=== PATIENT | female | born 1955 | race Caucasian/White ===

== ENCOUNTER 2022-09-11 11:08 | Outpatient (OUT) | payer MEDICARE, OTHER, SELFPAY ==
--- NOTE | 2022-09-11 11:19 | XR_ITS ---
[address] [address] Patient Name: RAFI ASH MRN: [id number] date: 1955 Sex: F Assigned Patient Location: [facility] Current Patient Location: [facility] Accession/Order Number: [id number] Exam Date: 09/11/2022 11:28 Report Date: 09/11/2022 21:36 At the request of: DWAYNE BALDERAS Procedure: XR foot LT min 3V PROCEDURE: XR foot LT min 3V COMPARISON: None. HISTORY: Left foot injury S99.922A FINDINGS: BONES:No acute fracture or dislocation. Remote resection head of the fifth metatarsal. Moderate plantar enthesopathic spurring of the calcaneus. SOFT TISSUES:Negative. No visible soft tissue swelling. EFFUSION:None visible. OTHER: Negative. IMPRESSION: No acute fracture Electronically authenticated by: THALIA CARSON Date: 09/11/2022 21:36
== END 2022-09-11 11:09 | disposition home or self-care (01) ==
PROVIDERS: PCP Family Medicine; Visit Provider Family Medicine
DX: S99.922A Unspecified injury of left foot, initial encounter (principal)
CPT/HCPCS: 73630

== ENCOUNTER 2023-02-12 23:10 | Emergency (ER) | payer MEDICARE, OTHER, SELFPAY ==
[2023-02-12] VITALS (9 sets, daily range): BP systolic 178–214; BP diastolic 93–105; PULSE 77–85; RESP 17–26; TEMP 36.7; O2SAT 98–100; BMI 23.5
--- NOTE | 2023-02-12 21:45 | ECG_ITS ---
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
--- NOTE | 2023-02-12 23:32 | ED.GENADUL1 ---
HPI - General Adult General Chief complaint: Recheck/Abnormal Lab/Rx Stated complaint: HIGH BLOOD PRESSURE Time Seen by Provider: 02/12/23 23:26 Source: patient Mode of arrival: walk-in History of Present Illness HPI narrative: This 68-year-old female with a history of hypertension, diabetes and coronary artery disease who is status post triple bypass surgery 2 years ago at [facility] presents for evaluation of elevated blood pressure, chest tightness and generalized malaise. The patient started Ozempic last week for control of her DM. She also has recently been seen by her team assembly line machine operator at [facility], Dr Alex, who increased her dose of Losartan to 50mg BID. States she has been having trouble getting control of her blood pressure. Her sugars have been running in the 160s to 170s. She states that last week after taking the injection she did not feel like eating all week and had some nausea. She denies any abdominal pain. She also had a COVID19 booster shot today. She states her blood pressure was elevated at home and she has some chest pressure. There is no radiation of this pain. She denies any dizziness diaphoresis or syncope. She has no headache. She has no abdominal pain or back pain. She has no lower extremity pain or swelling. She takes aspirin but is not on any additional blood thinners. Related Data Home Medications Medication Instructions Recorded Confirmed aspirin 81 mg tablet,delayed 81 mg PO DAILY 02/12/23 02/12/23 release (Adult Aspirin Regimen) atorvastatin 80 mg tablet 80 mg PO DAILY 02/12/23 02/12/23 docusate sodium 100 mg capsule 100 mg PO BID 02/12/23 02/12/23 gabapentin 100 mg capsule 100 mg PO Q8H 02/12/23 02/12/23 gabapentin 300 mg capsule 300 mg PO DAILY 02/12/23 02/12/23 insulin aspart U-100 100 unit/mL subcut 02/12/23 (3 mL) subcutaneous pen (Novolog FlexPen U-100 Insulin aspart) insulin detemir U-100 100 unit/mL 15 unit subcut .morning 02/12/23 02/12/23 (3 mL) subcutaneous pen (Levemir FlexPen) insulin detemir U-100 100 unit/mL 17 unit subcut QPM 02/12/23 02/12/23 (3 mL) subcutaneous pen (Levemir FlexPen) losartan 50 mg tablet 50 mg PO BID 02/12/23 02/12/23 magnesium oxide 400 mg (241.3 mg 400 mg PO DAILY 02/12/23 02/12/23 magnesium) tablet metformin 500 mg tablet,extended 500 mg PO DAILY 02/12/23 02/12/23 release 24 hr semaglutide 0.25 mg or 0.5 mg (2 0.25 mg subcut .weekly 02/12/23 02/12/23 mg/3 mL) subcutaneous pen injector (Ozempic) Allergies Allergy/AdvReac Type Severity Reaction Status Date / Time latex Allergy Mild Redness of Verified 02/12/23 23:23 Skin Review of Systems ROS Status of ROS 10 or more systems reviewed and unremarkable except as noted in history and below [facility] Social History Smoking status: Never smoker Exam Narrative Exam Narrative: Nurses note and vital signs reviewed and patient is not hypoxic. Manual blood pressure at triage was 170/100 General: Well-appearing female looking younger than her stated age of 68, no respiratory distress Skin: Warm, dry, no pallor noted. There is no rash noted. Head: Normocephalic, atraumatic Eye: Normal conjunctiva, no drainage, EOMI. PERRL Ears, Nose, Mouth, and Throat: oral mucosa is moist. Nares patent. Mouth without vesicles. Ear canals patent. Tm's without Erythema Cardiovascular: Regular Rate and Rhythm S1S2, No murmurs rubs or gallops appreciated, pulses are brisk and equal bilaterally Respiratory: Patient is in no distress, no accessory muscle use, lungs are clear to auscultation, no wheezing, rales or rhonchi Back: non-tender, no CVA tenderness bilaterally to percussion. GI: Normal bowel sounds, no tenderness to palpation, no masses appreciated. No rebound, guarding, or rigidity noted. Musculoskeletal: The patient has no evidence of calf tenderness, no pitting edema, symmetrical pulses noted bilaterally Neurological: A&O x4, normal speech Psychiatric: Cooperative Constitutional Vital Signs, click to edit/add: Last Vital Signs Temp 98.1 F 02/12/23 23:16 Pulse 71 02/13/23 00:30 Resp 16 02/13/23 00:30 BP 155/94 H 02/13/23 00:30 Pulse Ox 98 02/13/23 00:30 O2 Del Method Room Air 02/12/23 23:16 Course Vital Signs Vital signs: Vital Signs Temperature 98.1 F 02/12/23 23:16 Pulse Rate 80 02/12/23 23:16 Respiratory Rate 18 02/12/23 23:16 Blood Pressure 178/100 H 02/12/23 23:16 Pulse Oximetry 98 02/12/23 23:16 Oxygen Delivery Method Room Air 02/12/23 23:16 Temperature 98.1 F 02/12/23 23:16 Pulse Rate 71 02/13/23 00:30 Respiratory Rate 16 02/13/23 00:30 Blood Pressure 155/94 H 02/13/23 00:30 Pulse Oximetry 98 02/13/23 00:30 Oxygen Delivery Method Room Air 02/12/23 23:16 Medical Decision Making MDM Narrative Medical decision making narrative: This 68-year-old female with a history of diabetes, hypertension and coronary artery disease who is status post triple bypass surgery 2 years ago presents for evaluation of elevated blood pressure, chest tightness and episodes of nausea and fatigue. She has no radiation of her chest discomfort. No dizziness shortness of breath or diaphoresis. She started Ozempic injections last wee for better management of her diabetes. She has recently been working with her team assembly line machine operator, Dr. Alex, to get her blood pressure under control. On arrival her blood pressure was in the 180s over 90s. EKG done upon arrival is a sinus rhythm at 80 beats for minute with normal axis. No acute changes were noted. An IV was placed and she was medicated with IV fluids and 324 mg baby aspirin. Routine labs are reviewed. She has a normal white count and hemoglobin. She is mildly decreased potassium at 3.3. She has mild elevation in her liver function tests. She is status post cholecystectomy in the past and not having any abdominal pain. She does not drink or smoke. Troponin is normal at 7. Chest x-ray is negative. She was given 5 mg of oral Norvasc for the elevated blood pressure. On reevaluation her blood pressure has come down into the 150s over 90s. She is not having any additional chest pain. She has to he was able to fall asleep and get some rest. I explained to her that the injections she is taking can cause her to have generalized malaise, nausea abdominal cramping and bloating and abdominal pain with constipation. She does take a stool softener on a daily basis. Os is minimally elevated at 167. The remainder of her labs are normal. On reevaluation her blood pressures in the 150s over 90s and she was able to follow sleep and get some rest. We discussed the side effects of the os on pick as well as the etiology of high blood pressure. I offered her a prescription of Norvasc to use until she can be seen in follow-up by her team assembly line machine operator. She is in agreement with this plan. Side effects of Norvasc were discussed with her. I encouraged her to follow up as soon as possible with h er PCP and team assembly line machine operator for further evaluation and treatment of her blood pressure and monitoring of her LFTs Lab Data Labs: Lab Results 02/12/23 Range/Units 23:30 WBC 8.6 (4.0-11.0) 10^3/uL RBC 4.49 (4.20-5.40) 10^6/uL Hgb 13.5 (12.0-16.0) g/dL Hct 40.8 (36.0-48.0) % MCV 90.9 (81.0-99.0) fL MCH 30.1 (26.7-34.0) pg MCHC 33.1 (29.9-35.2) g/dL RDW 12.4 (11.0-15.0) % Plt Count 181 (150-450) 10^3/uL MPV 10.2 (9.5-13.5) fL Neut % (Auto) 71.0 (43.0-75.0) % Lymph % (Auto) 15.8 L (20.5-60.0) % [place] % (Auto) 8.9 (1.7-12.0) % Eos % (Auto) 3.7 (0.9-7.0) % Baso % (Auto) 0.5 (0.2-2.0) % Neut # (Auto) 6.1 (1.4-6.5) 10^3/uL Lymph # (Auto) 1.4 (1.2-3.8) 10^3/uL [place] # (Auto) 0.8 (0.3-0.8) 10^3/uL Eos # (Auto) 0.3 (0.0-0.7) 10^3/uL Baso # (Auto) 0.0 (0.0-0.1) 10^3/uL Abs Immat Gran (auto) 0.01 (0.00-0.03) 10^3/uL Imm/Tot Granulo (auto) 0.1 (0.0-0.5) % Sodium 140 (136-145) mmol/L Potassium 3.3 L (3.5-5.1) mmol/L Chloride 103 (98-107) mmol/L Carbon Dioxide 32.9 H (21.0-32.0) mmol/L Anion Gap 7.4 BUN 23.0 H (7.0-18.0) mg/dL Creatinine 0.73 (0.55-1.02) mg/dL Est GFR ( Amer) >60 (>=60) Est GFR (Non-Af Amer) >60 (>=60) BUN/Creatinine Ratio 31.5 Glucose 167 H (74-106) mg/dL Calcium 9.2 (8.5-10.1) mg/dL Total Bilirubin 1.3 H (0.2-1.0) mg/dL AST 43 H (15-37) U/L ALT 79 H (14-59) U/L Alkaline Phosphatase 119 H (46-116) U/L Troponin I High Sens 7.0 (4.0-51.3) pg/mL Total Protein 7.0 (6.4-8.2) g/dL Albumin 3.9 (3.4-5.0) g/dL Globulin 3.1 g/dL Albumin/Globulin Ratio 1.3 ECG Data Attestation: I personally reviewed and interpreted this ECG as follows: (Sinus rhythm at 80 beats for minute, normal axis, occasional PVCs, no acute ST segment elevation or T-wave inversion) Discharge Plan Discharge Chief Complaint: Recheck/Abnormal Lab/Rx Clinical Impression: Medication adverse effect, Elevated liver enzymes, Hypertension Patient Disposition: Home, Self-Care Time of Disposition Decision: 00:57 Condition: Good Prescriptions / Home Meds: No Action atorvastatin 80 mg tablet 80 mg PO DAILY docusate sodium 100 mg capsule 100 mg PO BID gabapentin 100 mg capsule 100 mg PO Q8H gabapentin 300 mg capsule 300 mg PO DAILY insulin aspart U-100 [Novolog FlexPen U-100 Insulin] 100 unit/mL (3 mL) insulin pen SUBCUT Levemir FlexPen 100 unit/mL (3 mL) insulin pen 15 unit subcut .morning Levemir FlexPen 100 unit/mL (3 mL) insulin pen 17 unit subcut QPM losartan 50 mg tablet 50 mg PO BID magnesium oxide 400 mg (241.3 mg magnesium) tablet 400 mg PO DAILY metformin 500 mg tablet extended release 24 hr 500 mg PO DAILY Ozempic 0.25 mg or 0.5 mg (2 mg/3 mL) pen injector 0.25 mg SUBCUT .weekly aspirin [Adult Aspirin Regimen] 81 mg tablet,delayed release (DR/EC) 81 mg PO DAILY Stand Alone Forms: Portal Instructions Referrals: FRANCISCO MCKEON [Primary Care Provider] - 1 week
--- NOTE | 2023-02-12 23:38 | XR_ITS ---
The [address] [address] Patient Name: RAFI ASH MRN: [id number] date: 1955 Sex: F Assigned Patient Location: ER Current Patient Location: Accession/Order Number: [id number] Exam Date: 02/12/2023 23:48 Report Date: 02/13/2023 00:04 At the request of: LALIT MARKER Procedure: XR chest 1V EXAMINATION: XR chest 1V HISTORY: CP COMPARISON: 04/23/2022 FINDINGS: There is no focal airspace consolidation. There is no appreciable pneumothorax or pleural effusion. The pulmonary vascularity is within normal limits for technique. The cardiomediastinal silhouette is within normal limits. XR/XR chest 1V IMPRESSION: Lungs are clear. No acute cardiopulmonary disease. Electronically authenticated by: MATT JACOBSON Date: 02/13/2023 00:04
[2023-02-12 23:44] LABS: Basophils Percent Auto 0.5 % (0.2-2.0); Eosinophils Absolute Auto 0.3 10^3/uL (0.0-0.7); Eosinophils Percent Auto 3.7 % (0.9-7.0); Hematocrit 40.8 % (36.0-48.0); Hemoglobin 13.5 g/dL (12.0-16.0); Immature Granulocytes Abs Auto 0.01 10^3/uL (0.00-0.03); Immature Granulocytes Pct Auto 0.1 % (0.0-0.5); Lymphocytes Absolute Auto 1.4 10^3/uL (1.2-3.8); Lymphocytes Percent Auto 15.8 % (20.5-60.0); Mean Corpuscular HGB Conc 33.1 g/dL (29.9-35.2); Mean Corpuscular Hemoglobin 30.1 pg (26.7-34.0); Mean Corpuscular Volume 90.9 fL (81.0-99.0); Mean Platelet Volume 10.2 fL (9.5-13.5); Monocytes Absolute Auto 0.8 10^3/uL (0.3-0.8); Monocytes Percent Auto 8.9 % (1.7-12.0); Neutrophils Absolute Auto 6.1 10^3/uL (1.4-6.5); Platelet Count 181 10^3/uL (150-450); Red Blood Count 4.49 10^6/uL (4.20-5.40); Red Cell Distribution Width 12.4 % (11.0-15.0); White Blood Count 8.6 10^3/uL (4.0-11.0)
[2023-02-12] MEDS: 0.9 % SODIUM CHLORIDE 500 ML IV (23:50)
[2023-02-12] MEDS: ASPIRIN 81 MG TAB.CHEW 324 MG PO (23:51)
[2023-02-12] MEDS: AMLODIPINE BESYLATE 5 MG TABLET PO (23:51)
[2023-02-13] VITALS (7 sets, daily range): BP systolic 155–193; BP diastolic 84–94; PULSE 71–89; RESP 12–20; O2SAT 96–100
[2023-02-13 00:04] LABS: Alanine Aminotransferase 79 U/L (14-59); Albumin Globulin Ratio 1.3; Albumin Level 3.9 g/dL (3.4-5.0); Alkaline Phosphatase 119 U/L (46-116); Anion Gap 7.4; Aspartate Amino Transferase 43 U/L (15-37); BUN Creatinine Ratio 31.5; Bilirubin Total 1.3 mg/dL (0.2-1.0); Calcium 9.2 mg/dL (8.5-10.1); Carbon Dioxide 32.9 mmol/L (21.0-32.0); Chloride 103 mmol/L (98-107); Estimated GFR (African America >60 (>=60); Estimated GFR (Non-African Ame >60 (>=60); Globulin 3.1 g/dL; Glucose 167 mg/dL (74-106); Potassium 3.3 mmol/L (3.5-5.1); Sodium 140 mmol/L (136-145)
== END 2023-02-13 01:10 | disposition home or self-care (01) ==
PROVIDERS: Emergency Provider Emergency Medicine; PCP Family Medicine
DX: I10 Essential (primary) hypertension (principal); R74.8 Abnormal levels of other serum enzymes; T50.995A Adverse effect of other drugs, medicaments and biological substances, initial encounter; E11.9 Type 2 diabetes mellitus without complications; I25.10 Atherosclerotic heart disease of native coronary artery without angina pectoris; Z95.1 Presence of aortocoronary bypass graft; Z79.82 Long term (current) use of aspirin; Z79.899 Other long term (current) drug therapy; Z79.4 Long term (current) use of insulin; Z79.84 Long term (current) use of oral hypoglycemic drugs; Z90.49 Acquired absence of other specified parts of digestive tract
CPT/HCPCS: 36415; 71045; 80053; 81001; 83690; 84484; 85025; 93005; 99285

== ENCOUNTER 2024-07-24 07:02 | Outpatient (OUT) | payer MEDICARE, OTHER, SELFPAY ==
[2024-07-24 07:38] LABS: Basophils Absolute Auto 0.1 10^3/uL (0.0-0.1); Basophils Percent Auto 0.8 % (0.2-2.0); Eosinophils Absolute Auto 0.5 10^3/uL (0.0-0.7); Eosinophils Percent Auto 9.1 % (0.9-7.0); Hematocrit 40.1 % (36.0-48.0); Hemoglobin 13.7 g/dL (12.0-16.0); Immature Granulocytes Abs Auto 0.02 10^3/uL (0.00-0.03); Immature Granulocytes Pct Auto 0.3 % (0.0-0.5); Lymphocytes Absolute Auto 1.5 10^3/uL (1.2-3.8); Lymphocytes Percent Auto 25.2 % (20.5-60.0); Mean Corpuscular HGB Conc 34.2 g/dL (29.9-35.2); Mean Corpuscular Hemoglobin 31.6 pg (26.7-34.0); Mean Corpuscular Volume 92.4 fL (81.0-99.0); Mean Platelet Volume 9.7 fL (9.5-13.5); Monocytes Absolute Auto 0.6 10^3/uL (0.3-0.8); Monocytes Percent Auto 10.1 % (1.7-12.0); Neutrophils Absolute Auto 3.2 10^3/uL (1.4-6.5); Neutrophils Percent Auto 54.5 % (43.0-75.0); Platelet Count 166 10^3/uL (150-450); Red Blood Count 4.34 10^6/uL (4.20-5.40); Red Cell Distribution Width 12.1 % (11.0-15.0)
[2024-07-24 08:41] LABS: Alanine Aminotransferase 54 U/L (14-59); Albumin Globulin Ratio 1.3; Albumin Level 3.3 g/dL (3.4-5.0); Alkaline Phosphatase 68 U/L (46-116); Anion Gap 6.7; Aspartate Amino Transferase 28 U/L (15-37); BUN Creatinine Ratio 32.6; Calcium 8.9 mg/dL (8.5-10.1); Carbon Dioxide 33.1 mmol/L (21.0-32.0); Chloride 101 mmol/L (98-107); Chol HDL Ratio 1.8; Cholesterol 79 mg/dL (<=200); Estimated GFR (African America >60 (>=60 mL/min/1.73m^2); Estimated GFR (Non-African Ame 58 (>=60 mL/min/1.73m^2); Globulin 2.6 g/dL; Glucose 236 mg/dL (74-106); HDL Cholesterol 45 mg/dL (40-60); LDL Cholesterol Calculated 7.6 mg/dL; Potassium 3.8 mmol/L (3.5-5.1); Sodium 137 mmol/L (136-145); Total Protein 5.9 g/dL (6.4-8.2); Triglycerides 132 mg/dL (<=150); VLDL CHOLESTEROL 26.4 mg/dL
== END 2024-07-24 07:03 | disposition home or self-care (01) ==
LOC: LAB 07:04
PROVIDERS: PCP Family Medicine; Visit Provider Internal Medicine Interventional Cardiology
DX: E78.2 Mixed hyperlipidemia (principal); I10 Essential (primary) hypertension
CPT/HCPCS: 36415; 80053; 80061; 85025

== ENCOUNTER 2024-08-13 07:58 | Outpatient (OUT) | payer MEDICARE, OTHER, SELFPAY ==
--- OUTSIDE RECORDS SUMMARY | 2024-08-12 08:15 | XMS_ITS | Encounter Summary ---
Author Organization [facility] Address [address] [place] [address] Care Team Providers Care Patient Manager Name Role Phone Cliff Jeffries MD Primary Care Provider [phone] Reason for Visit * Reason Comments Diabetic Eye Exam Encounter Details Date Type Department Care Team (Latest Contact Info) Description 08/12/2024 8:15 AM EDT Office Visit [facility] [address] [place] [id number] Joel Horvath DO [address] [place] [address] 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 type 1 diabetes mellitus (CMS/HCC) (Primary Dx); Bilateral posterior capsular opacification; Diplopia; Dry eyes Social History Tobacco Use Types Packs/Day Years Used Date Smoking Tobacco: Never Smokeless Tobacco: Never Comments Unknown Sex and Gender Information Value Date Recorded Sex Assigned at Not on file Legal Sex Female 8:35 PM EDT Gender Identity Not on file Sexual Orientation Not on file documented as of this encounter Progress Notes * Joel Horvath DO - 08/12/2024 8:15 AM EDT Images from the original note were not included. Assessment/Plan Diagnoses and all orders for this visit: 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 type 1 diabetes mellitus (CMS/HCC) - Diabetes Mellitus with signs of diabetic retinopathy on dilated retinal examination today OU: Discussed the pathophysiology of diabetes and its effect on the eye. Stressed the importance of strong glucose control. Advised of importance of at least yearly dilated examinations, but to contact us imm ediately for any problems or concerns. Continue aggressive control of the blood sugar, blood pressure and cholesterol. Bilateral posterior capsular opacification - PCO OU: (Posterior Capsule Opacification) Can be observed without intervention if PCO is not visually significant. Nd:YAG laser capsulotomy may be considered if impairment of vision rises to a level that dose not meet the patient's functional needs or interferes with activities of daily living. Risks, benefits and alternatives to the procedure will be reviewed. If the patient has undergone Nd:YAG laser capsulotomy, they are to notify their stone fabricator promptly if they have a significant change in symptoms, such as flashes of light (photopsia), an increase in floaters, loss of visual field or decrease in visual acuity. Diplopia - Stable with current Rx prism power however doesn't like to wear due to vision difference when wearing. Dry eyes - Dry Eyes OU -- Environmental changes to minimize dryness and exposure and the use of artificial tears were recommended. documented in this encounter Plan of Treatment Upcoming Encounters Date Type Department Care Team (Late st Contact Info) Description 08/12/2025 8:30 AM EDT Office Visit [facility] [address] [place] [phone] Joel Horvath DO [address] [place] [address] documented as of this encounter Visit Diagnoses Diagnosis 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 type 1 diabetes mellitus ([facility])- Primary Bilateral posterior capsular opacification Unspecified after-cataract Diplopia Dry eyes Unspecified tear film insufficiency documented in this encounter Care Teams Patient Manager Relationship Specialty Start Date End Date Cliff Jeffries MD PCP - General Family Medicine 12/11/22 documented as of this encounter
--- NOTE | 2024-08-13 07:59 | CA_ITS ---
Patient Name: RAFI ASH MR#: [id number] : 1955 Exam Date: 08/13/2024 Ordering Doctor: DR EUGENE RUDOLPH M.D. ECHOCARDIOGRAM REPORT PROCEDURE: CA ECHO DOPPLER COMPLETE INDICATIONS: CAD, Lower extremity edema, Hx: CABG COMPARISON: None. DESCRIPTION: COMPLETE ECHOCARDIOGRAM Real-time transthoracic echocardiography with 2D, M-mode, spectral and color flow Doppler performed. QUALITY: Technical quality was limited because of lung artifact. LEFT VENTRICLE: Normal chamber size. Normal left ventricular wall thickness. LV EF: Global left ventricular systolic function is normal. Visual estimation of left ventricular ejection fraction is 60-65%. Abnormal septal motion; not an unusual finding in the postoperative outpatient. DIASTOLIC: Normal diastolic function. ATRIAL SEPTUM: Inadequately seen. LEFT ATRIUM: Normal chamber size. RIGHT ATRIUM: Mild dilatation. RIGHT VENTRICLE: Normal chamber size. Normal right ventricular systolic function. TRICUSPID VALVE: Normal mobility and thickness. No stenosis with trivial regurgitation. No evidence of pulmonary hypertension. RVSP 30mmHg MITRAL VALVE: Normal mobility and thickness. No evidence of mitral valve stenosis. Mild mitral annular calcification. Trivial mitral regurgitation. AORTIC VALVE: Grossly normal. Normal leaflet mobility. No evidence of aortic valve stenosis. Trivial aortic regurgitation. AORTIC ROOT: Normal diameter and appearance. PULMONIC VALVE: Not well visualized. No regurgitation. PERICARDIUM: No evidence of pericardial effusion. IVC: Collapses with inspirations. Normal size. CONCLUSION: 1. Global left ventricular systolic function is normal; visually estimated ejection fraction is 60 to 65% 2. Normal right ventricular size and systolic function 3. The right atrium appears enlarged 4. Normal diastolic function 5. No significant valvular abnormalities Adult Echocardiography Procedure Report Left Ventricle LVEDD (3.7 - 5.6 cm): 3.56 cm LVESD (2.2 - 4.0 cm): 2.53 cm LVIVS thickness (0.6 - 1.2 cm): 0.84 cm LVPW thickness (0.5 - 1.0 cm): 0.85 cm e': 0.09 m/s E - e': 10.29 LVOT Max Gradient: 3.53 mm[Hg] LVOT Area (cm2): 0.94 m/s Peak Velocity (LVOT): 0.94 m/s Mean Velocity (LVOT): 0.62 m/s LVOT Diameter 1.72 cm Left Atrium Left Atrium Systolic Dimension: 2.66 cm Mitral Valve MV E to A Ratio: 1.08 Mitral Valve A-Wave Peak Velocity: 0.86 m/s Mitral Valve E-Wave Peak Velocity: 0.92 m/s Right Ventricle RV Internal Diastolic Dimension: 3.17 cm Aorta AO Root Diam: 3.11 cm Ascending Ao Diam: 3.02 cm Aortic Valve AoV Area (Peak Adis): 1.92 cm2, 1.92 cm2 Peak Velocity(Antegrade Flow): 1.14 m/s Peak Gradient(Antegrade Flow): 5.21 mm[Hg] Tricuspid Valve Peak Velocity (Regurgitant Flow): 2.30 m/s, 2.62 m/s, 2.28 m/s Pulmonic Valve Mean Gradient: 1.37 mm[Hg] Mean Velocity: 0.56 m/s Peak Velocity: 0.73 m/s, 0.87 m/s Peak Gradient: 3.01 mm[Hg], 2.13 mm[Hg] Right Atrium Right Atrium Systolic Pressure: 59.30 ml, 59.30 ml Dictated by: Ej Gray M.D. on 08/13/2024 at 17:14 Approved by: Ej Gray M.D. on 08/13/2024 at 17:20
--- OUTSIDE RECORDS SUMMARY | 2024-08-13 07:59 | XMS_ITS | Encounter Summary ---
Author Organization [facility] Address [address] [place] [address] Care Team Providers Care Hoop Coiling Machine Operator Name Role Phone Ambar Butler MD Primary Care Provider [phone] Source Comments In the event this information is protected by the Federal Confidentiality of Alcohol and Drug AbusePatient Records regulations: The Federal rules restrict any use of the information to criminally investigate or prosecute any alcohol or drug abuse patient.[facility] Encounter Details Date Type Department Care Team (Late st Contact Info) Description 05/04/2020 Patient [place] [address] Provider, [facility] RE:test email Social History Tobacco Use Types Packs/Day Years Used Date Smoking Tobacco: Never Alcohol Use Standard Drinks/Week Comments No 0 (1 standard drink = 0.6 oz pur e alcohol) Area Deprivation Index Answer Date Ruben rded National Score (1-100), lower number is lower ri sk Not on file 05/07/2020 State Score (1-10), lower number is lower risk N ot on file 05/07/2020 Data from: https://www.[facility] hospitalatlas.[facility]/. Last address used for calculation Not on file 05/07/2020 Comments No Sex and Gender Information Value Date Recorded Sex Assigned at Not on file Legal Sex Female 10:01 AM EST Gender Identity Not on file Sexual Orientation Not on file COVID-19 Exposure Response Date Recorded In the last month, have you been in contact with someone who was confirmed or suspected to have Coronavirus / COVID-19? Unable to assess 05/04/2020 1:49 PM EST documented as of this encounter Functional Status * Are you deaf or do you have serious difficulty hearing? Answer Date of Assessment Author No 06/30/2014 8:13 AM EDT Skyla Espana LPN * Are you blind or do you have serious difficulty seeing, even when wearing glasses? Answer Date of Assessment Author No 06/30/2014 8:13 AM Skyla Rowland LPN * Do you have serious difficulty walking or climbing stairs? Answer Date of Assessment Author No 06/30/2014 8:13 AM Skyla Rowland LPN * Do you have difficulty dressing or bathing? Answer Date of Assessment Author No 06/30/2014 8:13 AM AL[place] Skyla Espana LPN * Because of a physical, mental, or emotional condition, do you have difficulty doing errands alone such as visiting a doctor's office or shopping? Answer Date of Assessment Author No 06/30/2014 8:13 AM [place] Skyla Espana LPN documented as of this encounter Mental Status * Because of a physical, mental, or emotional condition, do you have serious difficulty concentrating, remembering, or making decisions? Answer Entry Date Author No 06/30/2014 8:13 AM EDT Skyla Espana LPN documented in this encounter Plan of Treatment Not on file documented as of this encounter Visit Diagnoses Not on filedocumented in this encounter Care Teams Hoop Coiling Machine Operator Relationship Specialty Start Date End Date Ambar Butler MD [address] [facility] [place] [address] PCP - General 04/11/04 documented as of this encounter
--- OUTSIDE RECORDS SUMMARY | 2024-08-13 07:59 | XMS_ITS | Encounter Summary ---
Author Organization [facility] Address [address] [place] [address] Care Team Providers Care Roll Skinner Name Role Phone Ambar Butler MD Primary Care Provider [phone] Source Comments In the event this information is protected by the Federal Confidentiality of Alcohol and Drug AbusePatient Records regulations: The Federal rules restrict any use of the information to criminally investigate or prosecute any alcohol or drug abuse patient.[facility] Encounter Details Date Type Department Care Team (Late st Contact Info) Description 08/23/2022 Patient Msg [facility] [address] [place] [address] Lela Enriquez MD [address] [place] [address] MRI Social History Tobacco Use Types Packs/Day Years Used Date Smoking Tobacco: Never Alcohol Use Standard Drinks/Week Comments No 0 (1 standard drink = 0.6 oz pur e alcohol) Area Deprivation Index Answer Date Ruben rded National Score (1-100), lower number is lower ri sk Not on file 05/07/2020 State Score (1-10), lower number is lower risk N ot on file 05/07/2020 Data from: https://www.neighborhoodatlas.medicine.[facility]/. Last address used for calculation Not on file 05/07/2020 Comments No Sex and Gender Information Value Date Recorded Sex Assigned at Not on file Legal Sex Female 10:01 AM EST Gender Identity Not on file Sexual Orientation Not on file documented as of this encounter Functional Status * Are you deaf or do you have serious difficulty hearing? Answer Date of Assessment Author No 06/30/2014 8:13 AM EDT Skyla Espana LPN * Are you blind or do you have serious difficulty seeing, even when wearing glasses? Answer Date of Assessment Author No 06/30/2014 8:13 AM [place]BAT Skyla Espana LPN * Do you have serious difficulty walking or climbing stairs? Answer Date of Assessment Author No 06/30/2014 8:13 AM ALBAT Skyla Espana LPN * Do you have difficulty dressing or bathing? Answer Date of Assessment Author No 06/30/2014 8:13 AM EDT Skyla Espana LPN * Because of a [...] on filedocumented in this encounter Care Teams Roll Skinner Relationship Specialty Start Date End Date Ambar Butler MD [address] [place] [address] PCP - General 04/11/04 documented as of this encounter
--- OUTSIDE RECORDS SUMMARY | 2024-08-13 07:59 | XMS_ITS | Clinical Summary ---
Author Organization [facility] Healthcare Address [address] [place] [address] Care Team Providers Care Shoulder Puncher Name Role Phone Cliff Jeffries MD Primary Care Provider [phone] Allergies Active Allergy Reactions Criticality Noted Date Comments Latex Rash Low 08/21/2011 BURNED HER SKIN Medications atorvastatin (Lipitor) 80 MG tablet 3 Active docusate sodium (Colace) 100 MG capsule TAKE 1 CAPSULE BY MOUTH TWICE A DAY NEEDED FOR CONSTIPATION 3 Active losartan (Cozaar) 25 MG tablet 1 (one) time each day at the same time. Active metFORMIN (Glucophage) 500 MG tablet Take 1 tablet by mouth. Active metoprolol succinate XL (Toprol-XL) 50 MG 24 hr tablet Take 50 mg by mouth in the morning. 3 Active Levemir FlexPen 100 UNIT/ML pen INJECT 15 UNITS SUBCUTANEOUSLY IN THE MORNING AND 17 UNITS IN THE EVENING *ROTATE INJECTION SITES* 3 Active glyBURIDE (Diabeta) 5 MG tablet 1 (one) time each day at the same time. Active NovoLOG FLEXPEN 100 UNIT/ML pen INJECT BEFORE MEALS AND AT BEDITME PERSLIDING SCALE*MAX OF 80 UNITS DAILY* 3 Active gabapentin (Neurontin) 100 MG capsule Take 100 mg by mouth in the morning and 100 mg in the evening and 100 mg before bedtime. 3 Active levothyroxine (Synthroid, Levoxyl) 50 MCG tablet Take 50 mcg by mouth in the morning. 3 Active Active Problems Problem Noted Date Diagnosed Date Diplopia 12/11/2022 Mild nonproliferative diabet ic retinopathy of both eyes without macular edema associated with type 1 diabetes mellitus 12/11/2022 Bilateral posterior capsular opacification 12/11 Dry eyes 12/11/2022 Encounters Date Type Department Care Team Description 08/12/2024 8:15 AM EDT Office Visit [facility] [address] [place] [id number] Joel Horvath DO 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 type 1 diabetes mellitus (CMS/HCC) (Primary Dx); Bilateral posterior capsular opacification; Diplopia; Dry eyes 08/12/2024 Bamboo flowsheet [facility] [address] [place] [address] Joel Horvath DO 08/12/2024 Travel from Last 3 Months Family History Medical History Relation Name Comments Diabetes Maternal Grandmother Diabetes Paternal Grandfather Relation Name Status Comments Maternal Grandmother Paternal Grandfather Social History Tobacco Use Types Packs/Day Years Used Date Smoking Tobacco: Never Smokeless Tobacco: Never Tobacco Cessation:Counseling Given: Not Answered Comments Unknown Sex and Gender Information Value Date Recorded Sex Assigned at Not on file Legal Sex Female 8:35 PM EDT Gender Identity Not on file Sexual Orientation Not on file Last Filed Vital Signs Vital Sign Reading Time Taken Comments Blood Pressure 152/98 07/01/2018 12:00 PM EDT Pulse - - Temperature - - Respiratory Rate - - Oxygen Saturation - - Inhaled Oxygen Concentration - - Weight 62.6 kg (138 lb) 09/04/2019 12:00 PM EDT Height 165.1 cm (5' 5 ) 09/04/2019 12:00 PM EDT Body Mass Index 22.96 09/04/2019 12:00 PM EDT Plan of Treatment Upcoming Encounters Date Type Department Care Team (Late st Contact Info) Description 08/12/2025 8:30 AM EDT Office Visit [facility] [address] [place] [address] Joel Horvath DO [address] [place] [address] Health Maintenance Due Date Last Done Comments CT Colonography 1955 Colonoscopy 1955 Colorectal Cancer Screening 1955 FIT-DNA 1955 FIT 1955 FOBT 1955 Sigmoidoscopy 1955 Mammogram 1993 Pneumococcal Vaccine: 65+ Ye ars (2 of 2 - PCV) 07/02/2019 07/01/2018, 01/28/2018 Influenza Vaccine Completed 11/30/2023, , 12/20/2021, Additional history exists Insurance MEDICARE [employer] [facility] MEDICARE SUPPLEMENT Care Teams Shoulder Puncher Relationship Specialty Start Date End Date Cliff Jeffries MD PCP - General Family Medicine 12/11/22
--- OUTSIDE RECORDS SUMMARY | 2024-08-13 07:59 | XMS_ITS | Encounter Summary ---
Author Organization [facility] Address [address] [place] [id number] Care Team Providers Care Apprentice Lineman Third Step Name Role Phone Ambar Butler MD Primary Care Provider [phone] Source Comments In the event this information is protected by the Federal Confidentiality of Alcohol and Drug AbusePatient Records regulations: The Federal rules restrict any use of the information to criminally investigate or prosecute any alcohol or drug abuse patient.[facility] Encounter Details Date Type Department Care Team (Late st Contact Info) Description 05/04/2020 Patient Msg [place] [address] Provider, [facility] Test Email Social History Tobacco Use Types Packs/Day Years Used Date Smoking Tobacco: Never Alcohol Use Standard Drinks/Week Comments No 0 (1 standard drink = 0.6 oz pur e alcohol) Area Deprivation Index Answer Date Ruben rded National Score (1-100), lower number is lower ri sk Not on file 05/07/2020 State Score (1-10), lower number is lower risk N ot on file 05/07/2020 Data from: https://www.neighborhoodatlas.medicine.[facility]/. Last address used for calculation Not on [...] 8:13 AM ALBAT Skyla Espana LPN * Are you blind [...] Entry Date Author No 06/30/2014 8:13 AM Skyla Rowland LPN documented in this encounter Plan of Treatment Not on file documented as of this encounter Visit Diagnoses Not on filedocumented in this encounter Care Teams Apprentice Lineman Third Step Relationship Specialty Start Date End Date Ambar Butler MD [address] [facility] [address] PCP - General 04/11/04 documented as of this encounter
--- OUTSIDE RECORDS SUMMARY | 2024-08-13 07:59 | XMS_ITS | Encounter Summary ---
Author Organization [facility] Address [address] [facility] [place] [address] Care Team Providers Care Python Engineer Name Role Phone Cliff Jeffries MD Primary Care Provider [phone] Encounter Details Date Type Department Care Team (Late Contact Info) Description 08/12/2024 Bamboo flowsheet [facility] [address] [place] [phone] Joel Horvath DO [address] [place] [address] Social History Tobacco Use Types Packs/Day Years Used Date Smoking Tobacco: Never Smokeless Tobacco: Never Comments Unknown Sex and Gender Information Value Date Recorded Sex Assigned at Not on file Legal Sex Female 8:35 PM EDT Gender Identity Not on file Sexual Orientation Not on file documented as of this encounter Plan of Treatment Upcoming Encounters Date Type Department Care Team (Late st Contact Info) Description 08/12/2025 8:30 AM EDT Office Visit [facility] [address] [place] [address] Joel Horvath DO [address] [place] [address] documented as of this encounter Visit Diagnoses Not on filedocumented in this encounter Care Teams Python Engineer Relationship Specialty Start Date End Date Cliff Jeffries MD PCP - General Family Medicine 12/11/22 documented as of this encounter
--- OUTSIDE RECORDS SUMMARY | 2024-08-13 07:59 | XMS_ITS | Clinical Summary ---
Author Organization [facility] Address [address] [place] [address] Care Team Providers Care Sandwich Board Carrier Name Role Phone Ambar Butler MD Primary Care Provider [phone] Allergies Active Allergy Reactions Criticality Noted Date Comments Latex Rash 08/21/2011 Medications ASPIRIN 81 MG TABLET Take one (1) tablet daily . 0 5 Active lisinopril (PRINIVIL) 10 mg tablet Take 1 tablet by mouth once daily. 0 2 Active glyBURIDE 5 mg tablet Take 5 mg by mouth daily with breakfast. Active metFORMIN 500 mg 24 hr tablet Take 500 mg by mouth daily with breakfast. Active iv contrast (will be provided with radiology test)Indicatio ns:Benign neoplasm of meninges (HCC) MRI Brain Inject, intravenously, once for 1 dose.No IV access, insert saline lock prior to beginning of sedation, infusion, injection of imaging exam.Discontinue saline lock post exam. If Pt. has a central line or IVAD, may access for administration according to line specific nursing protocol.Once exam is complete flush line and de-access according to line specific nursing protocol in the MR contrast administration guidelines link 1 Each 1 Active Active Problems Problem Noted Date Diagnosed Date Meningioma 05/07/2020 Atypical nevi 06/17/2013 Skin tag 06/13/2012 Multiple benign nevi 06/13/2012 Other seborrheic keratosis 01/12/2012 Joint capsule tear 08/21/2011 Overview (08/21/2011): Right hip labral tear Hip pain 08/21/2011 Actinic keratosis 11/29/2010 Inflamed seborrheic keratosis 01/22/2007 Benign neoplasm of skin of o ther and unspecified parts of face 05/16/2006 Benign neoplasm of scalp and skin of neck 2006 Benign neoplasm of skin of trunk, except scrotum 05/16/2006 Benign neoplasm of skin of upper limb, including shoulder 05/16/2006 Unspecified hypertrophic and atrophic condition of skin 05/30/2004 Follow-up examination following surgery 07/23/19 04 Lateral epicondylitis of elbow 05/08/2003 Loose body in upper arm joint 05/08/2003 Social History Tobacco Use Types Packs/Day Years Used Date Smoking Tobacco: Never Alcohol Use Standard Drinks/Week Comments No 0 (1 standard drink = 0.6 oz pur e alcohol) Area Deprivation Index Answer Date Ruben rded National Score (1-100), lower number is lower ri sk Not on file 05/07/2020 State Score (1-10), lower number is lower risk N ot on file 05/07/2020 Data from: https://www.neighborhoodatlas.medicine.[facility].edu/. Last address used for calculation Not on file 05/07/2020 Comments No Sex and Gender Information Value Date Recorded Sex Assigned at Not on file Legal Sex Female 10:01 AM EST Gender Identity Not on file Sexual Orientation Not on file Last Filed Vital Signs Vital Sign Reading Time Taken Comments Blood Pressure - - Pulse - - Temperature - - Respiratory Rate - - Oxygen Saturation - - Inhaled Oxygen Concentration - - Weight 65.8 kg (145 lb) 05/30/2004 12:46 PM EST Height 165.1 cm (5' 5 ) 05/30/2004 12:46 PM EST Body Mass Index 24.13 05/30/2004 12:46 PM EST Plan of Treatment Health Maintenance Due Date Last Done Comments Anxiety Screening 1971 Depression Screening 1971 Hepatitis C Screening [address] Colonography 1998 Cologuard (FIT-DNA) 1998 Colonoscopy 1998 Colorectal Cancer Screening 1998 Diabetes Screening 1998 Fecal Occult Blood 1998 Lipid Screening 1998 Sigmoidoscopy 1998 Bone Density Screening 2018 Pneumococcal Vaccine: 50+ (2 of 2 - PCV) 07/02/2019 07/01/2018, 01/28/2018 Covid-19 Vaccine (3 - 2023-2 5 season) 2023 05/25/2020, 04/26/2020 Advance Directive Discussion 03/19/2024 Influenza Vaccine (Season Ended) 2024 12/01/2019, 11/14/2018, 11/30/2017, Additional history exists DTaP,Tdap,Td Vaccine (2 - Td or Tdap) 01/15/2027 01/15/2017 RSV Vaccine (1 - 1-dose 75+ series) 02/08/2028 Shingrix Vaccine Completed 05/21/2018, , 01/28/[address] [place] [address] [place]IC[place] [facility] [place] Care Teams Sandwich Board Carrier Relationship Specialty Start Date End Date Ambar Butler MD [address] [place] [address] PCP - General 04/11/04
--- OUTSIDE RECORDS SUMMARY | 2024-08-13 07:59 | XMS_ITS | Encounter Summary ---
Author Organization [facility] Address [address] [facility] [place] [address] Care Team Providers Care Birdcage Assembler Name Role Phone Cliff Jeffries MD Primary Care Provider [phone] Encounter Details Date Type Department Care Team (Latest Contact Info) Description 08/12/2024 Travel Social History Tobacco Use Types Packs/Day Years [...] [facility] [address] [place] [phone] Joel Horvath DO [address] [place] [address] documented as of this encounter Visit Diagnoses Not on filedocumented in this encounter Care Teams Birdcage Assembler Relationship Specialty Start Date End Date Cliff Jeffries MD PCP - General Family Medicine 12/11/22 documented as of this encounter
--- OUTSIDE RECORDS SUMMARY | 2024-08-13 07:59 | XMS_ITS | Encounter Summary ---
Author Organization [facility] Address [address] [place] [address] Care Team Providers Care Last Sawyer Name Role Phone Ambar Butler MD Primary Care Provider [phone] Source Comments In the event this information is protected by the Federal Confidentiality of Alcohol and Drug AbusePatient Records regulations: The Federal rules restrict any use of the information to criminally investigate or prosecute any alcohol or drug abuse patient.[facility] Encounter Details Date Type Department Care Team (Late st Contact Info) Description 05/04/2020 Patient Msg [facility] [address] [place] [address] Provider, Ccf Upcoming Appointment Social History Tobacco Use Types Packs/Day Years Used Date Smoking Tobacco: Never Alcohol Use Standard Drinks/Week Comments No 0 (1 standard drink = 0.6 oz pur e alcohol) Area Deprivation Index Answer Date Ruben rded National Score (1-100), lower number is lower ri sk Not on file 05/07/2020 State Score (1-10), lower number is lower risk N ot on file 05/07/2020 Data from: https://www.neighborhoodatlas.[facility]/. Last address used for calculation Not [...] 06/30/2014 8:13 AM Skyla Rowland LPN * Are you blind or do [...] 06/30/2014 8:13 AM Skyla Rowland LPN * Because of a physical, mental, or emotional condition, do you have difficulty doing errands alone such as visiting a doctor's office or shopping? Answer Date of Assessment Author No 06/30/2014 8:13 AM Skyla Rowland LPN documented as of this encounter Mental Status * Because of a physical, mental, or emotional condition, do you have serious difficulty concentrating, remembering, or making decisions? Answer Entry Date Author No 06/30/2014 8:13 AM Skyla Rowland LPN documented in this encounter Plan of Treatment Not on file documented as of this encounter Visit Diagnoses Not on filedocumented in this encounter Care Teams Last Sawyer Relationship Specialty Start Date End Date Ambar Butler MD [address] [place] [address] PCP - General 1/24/05 documented as of this encounter
--- OUTSIDE RECORDS SUMMARY | 2024-08-13 08:00 | XMS_ITS | Referral Summary ---
Author Organization [facility] Address [address] [place] [address] Care Team Providers Care Bilingual School Psychologist Name Role Phone Cliff Jeffries MD Primary Care Provider [phone] Encounters Date Type Department Care Team Description 07/25/[address] [address] Lupis Trammell MA Hyperlipidemia, unspecified hyperlipidemia type (Primary Dx) 07/25/[address] [address] Lupis Trammell MA 07/25/[address] [address] Lupis Trammell MA 07/21/2024 9:30 AM EDT Office Visit [address] [address] Pete Suazo MD Coronary artery disease involving soboba coronary artery of soboba heart without angina pectoris (Primary Dx); Mixed hyperlipidemia; Edema of lower extremity; Primary hypertension; History of coronary artery bypass surgery; History of myocardial infarction from Last 3 Months Allergies Active Allergy Reactions Criticality Noted Date Comments Latex Unknown,Rash Low 08/21/2011 BURNED HER SKIN Medications Medication Sig Dispensed Refills Start Date End Date Status aspirin 81 mg EC tablet Take 81 mg by mouth in the morning. Active cholestyramine (Questran) 4 gram packet Take 1 packet by mouth in the morning. Active ezetimibe (Zetia) 10 mg tablet Take 1 tablet by mouth in the morning. 5 Active fluticasone (Flonase) 50 mcg/actuation nasal spray Administer 1 spray into each nostril in the morning. 4 Active gabapentin (Neurontin) 300 mg capsule Take 300 mg by mouth two times daily. Active hydroCHLOROthiazide (Microzide) 12.5 mg capsule Take 1 capsule by mouth in the morning. 5 Active NovoLOG Flexpen U-100 Insulin 100 unit/mL (3 mL) injection pen INJECT 15 UNITS SUBCUTANEOUSLY 3 TIMES A DAY BEFORE MEALS, INSTR: PER SSI Active insulin detemir (Levemir FlexPen) 100 unit/mL (3 mL) injection pen Inject under the skin. 3 Active levothyroxine (Synthroid, Levoxyl) 50 mcg tablet Take 50 mcg by mouth in the morning. Active losartan-hydrochlor othiazide (Hyzaar) 100-12.5 mg tablet Take 1 tablet by mouth in the morning. Active magnesium oxide (Mag-Ox) 400 mg (241.3 mg magnesium) tablet Take 1 tablet by mouth in the morning. 5 Active metFORMIN, MOD, (Glumetza) 500 mg 24 hr tablet Take 500 mg by mouth daily with evening meal. Active metoprolol succinate XL (Toprol-XL) 100 mg 24 hr tablet Take 1 tablet by mouth in the morning. 5 Active atorvastatin (Lipitor) 20 mg tabletIndications:H yperlipidemia, unspecified hyperlipidemia type Take 1 tablet (20 mg) by mouth at bedtime. 90 tablet 3 5 07/26/19 26 Active atorvastatin (Lipitor) 80 mg tablet Take 80 mg by mouth in the morning. 07/26/19 25 Discontinu ed(Therapy completed) Active Problems Problem Noted Date Diagnosed Date Aorto-iliac atherosclerosis 07/17/2024 Overview (07/17/2024): Added per Dr. Jeffries query response, per outpatient [facility] policy. Benign neoplasm of cerebral meninges 07/17/2024 BMI 26.0-26.9,adult 07/17/2024 Overweight (BMI 25.0-29.9) 07/17/2024 Bowel habit changes 07/17/2024 BPPV (benign paroxysmal positional vertigo) 03/2024 CHF (congestive heart failure) 07/17/2024 Colon cancer screening 07/17/2024 COVID 07/17/2024 DM type 2 causing vascular disease 07/17/2024 Diabetic neuropathy 07/17/2024 Eustachian tube dysfunction 07/17/2024 Fecal urgency 07/17/2024 GERD without esophagitis 07/17/2024 History of cholecystectomy 07/17/2024 History of Clostridium difficile colitis 025 HTN (hypertension) 07/17/2024 Injury of left foot 07/17/2024 penitentiary current use of insulin 07/17/2024 Overview (07/17/2024): Added per outpatient [facility] policy. Microscopic hematuria 07/17/2024 Nonsmoker 07/17/2024 Total bilirubin, elevated 07/17/2024 Ureteral stone 07/17/2024 Arteriosclerotic heart disease (ASHD) 01/22/2023 Diabetes mellitus 01/22/2023 Essential hypertension, benign 01/22/2023 History of myocardial infarction 01/22/2023 Hyperlipidemia 01/22/2023 Paroxysmal atrial fibrillation 01/22/2023 S/P CABG x 3 01/22/2023 Bilateral posterior capsular opacification 12/11 Diplopia 12/11/2022 Dry eyes 12/11/2022 Mild nonproliferative diabet ic retinopathy of both eyes without macular edema associated with type 1 diabetes mellitus 12/11/2022 Meningioma 05/07/2020 Atypical nevi 06/17/2013 Multiple benign nevi 06/13/2012 Hip pain 08/21/2011 Joint capsule tear 08/21/2011 Overview (07/17/2024): Right hip labral tear Actinic keratosis 11/29/2010 Benign neoplasm of skin of trunk, except scrotum 05/16/2006 Benign neoplasm of skin of upper limb, including shoulder 05/16/2006 Hypertrophic and atrophic condition of skin 05/17 Follow-up examination following surgery 07/23/19 04 Lateral epicondylitis 05/08/2003 Immunizations Name Administration Dates Next Due Hep A, Unspecified 12/07/2000,05/30/2000 Influenza, High Dose Seasona l, Preservative Free 11/30/2023,11/14/2018 Influenza, High-dose Seasona l, Quadrivalent, Preservative Free 12/20/2021,12/04/2020,12/01/2019 Influenza, Seasonal, Quadriv alent, Adjuvanted 12/21/2022 Influenza, injectable, quadr ivalent, preservative free 11/14/2017,12/12/2016,12/08/2015 Influenza, live, intranasal 11/30/2017 Influenza, seasonal, injectable 11/23/2021 Moderna Covid-19 vaccine, 12&up 02/12/2023 Novel [id number], preservative-free 02/24 Pneumococcal Polysaccharide PPV23 07/01/2018,02/2018 RSV, Adult, Recombinant 11/22/2022 Tdap 01/15/2017 Typhoid, Parenteral 11/06/2017,04/20/2015 Zoster, Recombinant 05/21/2018,11/06/2017 Zoster, live 01/28/2014 Social History Tobacco Use Types Packs/Day Years Used Date Smoking Tobacco: Never Smokeless Tobacco: Never Tobacco Cessation:Counseling Given: Not Answered Alcohol Use Standard Drinks/Week Comments Not Currently 0 (1 standard drink = 0.6 oz pur e alcohol) Sex and Gender Information Value Date Recorded Sex Assigned at Female 07/17/2024 2:44 PM EDT Gender Identity Female 07/17/2024 2:44 PM EDT Sexual Orientation Heterosexual or Straight 03/2024 2:44 PM EDT Last Filed Vital Signs Vital Sign Reading Time Taken Comments Blood Pressure 132/77 07/21/2024 9:28 AM EDT Pulse 77 07/21/2024 9:28 AM EDT Temperature - - Respiratory Rate - - Oxygen Saturation 99% 07/21/2024 9:28 AM EDT Inhaled Oxygen Concentration - - Weight 65.3 kg (144 lb) 07/21/2024 9:28 AM EDT Height 165.1 cm (5' 5 ) 07/21/2024 9:28 AM EDT Body Mass Index 23.96 07/21/2024 9:28 AM EDT Plan of Treatment Not on file Procedures Procedure Name Priority Date/Time Associated Diagnosis Comments ECG 12 LEAD UNIT PERFORMED Routine 07/21/2024 10:12 AM EDT Coronary artery disease involving soboba coronary artery of soboba heart without angina pectoris from Last 3 Months Results * ECG 12 lead unit performed (07/21/2024 10:12 AM EDT) Pete Suazo MD ECG ORDERABLES from Last 3 Months Care Teams Bilingual School Psychologist Relationship Specialty Start Date End Date Cliff Jeffries MD [address] [facility] [place] [address] [place] [address] PCP - General Family Medicine 07/17/24
--- OUTSIDE RECORDS SUMMARY | 2024-08-13 08:00 | XMS_ITS | Clinical Summary ---
Author Organization [facility] Address [address] [place] [address] Phone Care Team Providers Care Stock Raiser Name Role Phone Cliff Jeffries MD Primary Care Provider [phone] Allergies No known active allergies Medications aspirin 81 mg EC tablet Take 1 tablet (81 mg) by mouth once daily. Active atorvastatin (Lipitor) 80 mg tablet Take 1 tablet (80 mg) by mouth once daily at bedtime. Active docusate sodium (Colace) 100 mg tablet Take 1 tablet (100 mg) by mouth 2 times a day. Active insulin detemir (Levemir FlexTouch U100 Insulin) 100 unit/mL (3 mL) pen Inject under the skin. Active metFORMIN (Glucophage) 500 mg tablet Take 1 tablet (500 mg) by mouth once daily. Active metoprolol succinate XL (Toprol-XL) 50 mg 24 hr tablet Take 1 tablet (50 mg) by mouth once daily. 01/17/2022 Active gabapentin (Neurontin) 300 mg capsule Take 1 capsule (300 mg) by mouth once daily at bedtime. Active insulin aspart (NovoLOG U-100 Insulin aspart) 100 unit/mL injection Inject 1 Units under the skin 3 times a day before meals. Take as directed per insulin instructions. Active levothyroxine (Synthroid, Levoxyl) 25 mcg tablet Take 1 tablet (25 mcg) by mouth once daily in the morning. Take before meals. Active magnesium oxide (Mag-Ox) 400 mg tablet Take 1 tablet (400 mg) by mouth once daily. Active losartan (Cozaar) 50 mg tabletIndicatio ns:Arterioscler otic heart disease (ASHD),Essentia l hypertension, benign Take 1 tablet (50 mg) by mouth 2 times a day. 180 tablet 3 01/31/2023 Active Active Problems Problem Noted Date Diagnosed Date Arteriosclerotic heart disease (ASHD) 01/22/2023 Diabetes mellitus (Multi) 01/22/2023 Essential hypertension, benign 01/22/2023 History of myocardial infarction 01/22/2023 Hyperlipidemia 01/22/2023 Paroxysmal atrial fibrillation (Multi) S/P CABG x 3 01/22/2023 Immunizations Immunization Administration Dates Next Due Flu vaccine (IIV4), preserva tive free *Check age/dose* 11/14/2017,12/12/2016,12/08/2015 Flu vaccine, quadrivalent, h igh-dose, preservative free, age 65y+ (FLUZONE) 12/20/2021,12/04/2020,12/01/2019 Flu vaccine, trivalent, pres ervative free, HIGH-DOSE, age 65y+ (Fluzone) 11/14/2018 Hep A, Unspecified 12/07/2000,05/30/2000 Influenza, Seasonal, Quadriv alent, Adjuvanted 12/21/2022 Influenza, live, intranasal, quadrivalent 2017 Influenza, seasonal, injectable 11/23/2021 Moderna COVID-19 vaccine, bi valent, blue cap/fuentes label *Check age/dose* 11/28/2021 Novel [id number], preservative-free 02/24 Pneumococcal polysaccharide vaccine, 23-valent, age 2 years and older (PNEUMOVAX 23) 07/01/2018,01/28/2018 RSV, 60 Years And Older (AREXVY) 11/22/2022 Tdap vaccine, age 7 year and older (BOOSTRIX, ADACEL) 01/15/2017 Typhoid, Parenteral 11/06/2017,04/20/2015 Zoster vaccine, recombinant, adult (SHINGRIX) 05/21/2018,11/06/2017 Zoster, live 01/28/2014 Social History Tobacco Use Types Packs/Day Years Used Date Smoking Tobacco: Never Smokeless Tobacco: Never Alcohol Use Standard Drinks/Week Comments Never 0 (1 standard drink = 0.6 oz pur e alcohol) Comments Unknown Sex and Gender Information Value Date Recorded Sex Assigned at Not on file Legal Sex Female 1:22 PM EST Gender Identity Not on file Sexual Orientation Not on file Last Filed Vital Signs Vital Sign Reading Time Taken Comments Blood Pressure 120/82 03/20/2023 9:33 AM EST Pulse 62 03/20/2023 9:30 AM EST Temperature - - Respiratory Rate - - Oxygen Saturation - - Inhaled Oxygen Concentration - - Weight 63 kg (139 lb) 03/20/2023 9:30 AM EST Height 165.1 cm (5' 5 ) 03/20/2023 9:30 AM EST Body Mass Index 23.13 03/20/2023 9:30 AM EST Plan of Treatment Health Maintenance Due Date Last Done Comments Bone Density Scan 1953 CT Colonography 1953 Colonoscopy 1953 Colorectal Cancer Screening 1953 Creatinine Level 1953 Diabetes: Hemoglobin A1C 1953 Diabetes: Urine Protein Screening 1953 FIT-DNA (Cologuard) 1953 FIT 1953 Lipid Panel 1953 Potassium Level 1953 Sigmoidoscopy 1953 TSH Level 1953 Hepatitis C Screening 1971 Mammogram 1993 Pneumococcal Vaccine (2 of 2 - PCV) 07/02/2019 07/01/2018, 01/28/2018 Medicare Annual Wellness Visit (AWV) 12/24/2020 12/24/2019 Echocardiogram 02/10/2022 02/10/2021 COVID-19 Vaccine ( season) 2023 02/12/2023, 11/28/2021, 06/29/2021, Additional history exists Diabetes: Retinopathy Screening 12/12/2023 12/11/2022, 04/24/2022, 01/23/2022, Additional history exists DTaP/Tdap/Td Vaccines (2 - Td or Tdap) 01/15/2027 01/15/2017 Hepatitis A Vaccines Aged Out 12/07/2000, 05/31/19 01 No longer eligible based on patient's age to complete this topic Zoster Vaccines Completed 05/21/2018, 10/18, 01/28/2014 RSV High Risk: (Elderly (60+) or Population) Completed 11/22/2022 Influenza Vaccine Completed 11/30/2023, , 12/20/2021, Additional history exists HIB Vaccines Aged Out No longer eligi ble based on patient's age to complete this topic HPV Vaccines Aged Out No longer eligi ble based on patient's age to complete this topic Hepatitis B Vaccines Aged Out No long er eligible based on patient's age to complete this topic IPV Vaccines Aged Out No longer eligi ble based on patient's age to complete this topic Meningococcal Vaccine Aged Out No narciso main eligible based on patient's age to complete this topic Rotavirus Vaccines Aged Out No longer eligible based on patient's age to complete this topic Procedures Procedure Name Priority Date/Time Associated Diagnosis Comments ECHOCARDIOGRAM 02/10/2021 from Last 3 Months or Most Recently Relevant to Health Maintenance Results * ECHOCARDIOGRAM (02/10/2021) Narrative 02/10/2021 Ordered by an unspecified provider. us Onbase Conversion CV ECHO PROCEDURES Final Resul t from Last 3 Months or Most Recently Relevant to Health Maintenance Insurance MEDICARE PART A AND B [facility] MEDICARE SUPPLEMENT MEDICARE PART A AND B [facility] MEDICARE SUPPLEMENT Care Teams Stock Raiser Relationship Specialty Start Date End Date Cliff Jeffries MD [address] [facility] [place] [address] PCP - General Family Medicine 01/23/23
--- OUTSIDE RECORDS SUMMARY | 2024-08-13 08:00 | XMS_ITS | Encounter Summary ---
Author Organization [facility] Address [address] [place] [address] Phone Care Team Providers Care Debt And Budget Counselor Name Role Phone Ambar Butler MD Primary Care Provider [phone] Cliff Jeffries MD Primary Care Provider [phone] Encounter Details Date Type Department Care Team (Late st Contact Info) Description 07/19/2022 Orders Only [facility] [address] [address] Conversion, Onbase Social History Tobacco Use Types Packs/Day Years Used Date Smoking Tobacco: Never Assessed Comments Unknown Sex and Gender Information Value Date Recorded Sex Assigned at Not on file Legal Sex Female 1:22 PM EST Gender Identity Not on file Sexual Orientation Not on file documented as of this encounter Plan of Treatment Scheduled Orders Name Type Priority Associated Diagnoses Orde r Schedule OUTSIDE LAB SCAN Lab Ordered: 07/19/2022 documented as of this encounter Visit Diagnoses Not on filedocumented in this encounter Care Teams Debt And Budget Counselor Relationship Specialty Start Date End Date Ambar Butler MD [address] [facility] MD [place] [address] PCP - General 03/19/99 01/22/23 Cliff Jeffries MD [address] [facility] [place] [address] PCP - General Family Medicine 01/23/23 documented as of this encounter
--- OUTSIDE RECORDS SUMMARY | 2024-08-13 08:05 | XMS_ITS | CCD ---
Author Organization [facility] Care Team Providers Care Community Development Technician Name Role Phone Unavailable Unavailable Lamont Butler Unavailable LAMONT BUTLER Primary Care Physician MD Lamont Butler Primary Care Provider MD Lamont Butler Referring Provider [phone] Self, Referral Attending Provider Unavailable Dr. Jason Alex Attending Unavailable Isai, Dr. Gomez Attending Unavailable Isai, Dr. Gomez Referring Unavailable Lamont Butler Primary Care Unavailable Isai, Dr. Gomez Referring Unavailable Isai, Dr. Gomez Attending Unavailable Lamont Butler Primary Care Unavailable Isai, Dr. Gomez Referring Unavailable Isai, Dr. Gomez Attending Unavailable Lamont Butler Primary Care Unavailable Isai, Dr. Gomez Referring Unavailable Isai, Dr. Gomez Attending Unavailable Lamont Butler Primary Care Unavailable Jason Devlin II Attending Unavailable Jason Devlin II Referring Unavailable Isai, Dr. Gomez Attending Unavailable Isai, Dr. Gomez Attending Unavailable Isai, Dr. Gomez Attending Unavailable Isai, Dr. Gomez Attending Unavailable Isai, Dr. Gomez Attending Unavailable CARSON ., DR SAINI Attending Unavailable HAY ., DR SAINI Admitting Unavailable HAY ., DR SAINI Consulting Unavailable BUTLER ., DR LAMONT Lima Primary Care Unavailable CALIXTO PEDERSEN Consulting Unavailable LIBORIO NEWELL Attending Unavailable LIBORIO NEWELL Admitting Unavailable LIBORIO NEWELL Consulting Unavailable LUKE ., DR LAMONT Lima Primary Care Unavailable LUCILA KNIGHT Consulting Unavailable BUTLER ., DR LAMONT Lima Admitting Unavailable BUTLER ., DR LAMONT Lima Attending Unavailable BUTLER ., DR LAMONT Lima Primary Care Unavailable BUTLER ., DR LAMONT Lima Admitting Unavailable BUTLER ., DR LAMONT Lima Attending Unavailable BUTLER ., DR LAMONT Lima Primary Care Unavailable BUTLER ., DR LAMONT Lima Consulting Unavailable BUTLER ., DR LAMONT Lima Attending Unavailable BUTLER ., DR LAMONT Lima Admitting Unavailable BUTLER ., DR LAMONT Lima Primary Care Unavailable BUTLER ., DR LAMONT Lima Attending Unavailable BUTLER ., DR LAMONT Lima Admitting Unavailable BUTLER ., DR LAMONT Lima Primary Care Unavailable BUTLER ., DR LAMONT Lima Consulting Unavailable BUTLER ., DR LAMONT Lima Admitting Unavailable BUTLER ., DR LAMONT Lima Attending Unavailable BUTLER ., DR LAMONT Lima Primary Care Unavailable BUTLER ., DR LAMONT Lima Consulting Unavailable BUTLER ., DR LAMONT Lima Consulting Unavailable BUTLER ., DR LAMONT Lima Admitting Unavailable BUTLER ., DR LAMONT Lima Attending Unavailable BUTLER ., DR LAMONT Lima Primary Care Unavailable ZIEBER, DR DAGOBERTO White Consulting Unavailable BUTLER ., DR LAMONT Lima Attending Unavailable BUTLER ., DR LAMONT Lima Admitting Unavailable BUTLER ., DR LAMONT Lima Primary Care Unavailable BUTLER ., DR LAMONT Lima Admitting Unavailable BUTLER ., DR LAMONT Lima Attending Unavailable BUTLER ., DR LAMONT Lima Primary Care Unavailable GRECHNY ., GIAN JAVIER Consulting Unavailemilia PRAKASH, DR KERRIE White Admitting Unavailable OLINDA, DR KERRIE White Attending Unavailable BUTLER ., DR LAMONT Lima Primary Care Unavailable PADMINI JOHNSON Consulting Unavailable LAMBERTO DOLAN Consulting Unavailable Self, Referral Attending Provider Unavailable MD Francisco Mckeon Primary Care Provider Francisco Mckeon MD Primary Care Provider JASON ALEX Attending Unavailable FRANCISCO MCKEON Primary Care Unavailable JASON ALEX Referring Unavailable FRANCISCO MCKEON Primary Care Unavailable Francisco Mckeon. Primary Care Physician [phone] MD Francisco Mckeon Primary Care Provider [phone] Self, Referral Attending Provider Unavailable KAYLA GEORGE Attending Unavailable MALIK KAYLA Janie Admitting Unavailable Francisco Mckeon. Referring Unavailable Francisco Mckeon. Admitting Unavailable Francisco Mckeon. Attending Unavailable MALIK KAYLA E Admitting Unavailable MALIK, KAYLA E Attending Unavailable Self, Referral Attending Unavailable Self, Referral Admitting Unavailable Francisco Mckeon Primary Care Unavailable Francisco Mckeon. Attending Unavailable Carolyn Correa Attending Unavailable Francisco Mckeon. Attending Unavailable Carolyn Correa Attending Unavailable Francisco Mckeon. Attending Unavailable MD Janes Rivera Attending Unavailable Francisco Mckeon Referring Unavailable NONE, XXXX Referring Unavailable MD aJnes Rivera Attending Unavailable MD Janes Rivera Admitting Unavailable MD Janes Rivera Attending Unavailable Francisco Mckeon Attending Unavailable Francisco Mckeon Admitting Unavailable Hajdkp, Astrit H Attending Unavailable Francisco Mckeon Attending Unavailable Francisco Mckeon Attending Unavailable Francisco Mckeon Attending Unavailable Francisco Mckeon Attending Unavailable Francisco Mckeon Attending Unavailable Lue Maris MCristal Referring Unavailable Lue Maris MCristal Attending Unavailable Lue, Maris MCristal Admitting Unavailable Lue, Maris MCristal Admitting Unavailable Lue, Maris MCristal Referring Unavailable Lue, Maris MCristal Attending Unavailable Lue, Maris MCristal Admitting Unavailable Lue, Maris MCristal Attending Unavailable Lue Maris MCristal Referring Unavailable Francisco Mckeon Attending Unavailable Francisco Mckeon Referring Unavailable KAYLA GEORGE Attending Unavailable Francisco Mckeon Admitting Unavailable Francisco Mckeon Attending Unavailable MD Janes Rivera Admitting Unavailable MD Janes Rivera Attending Unavailable Raman Garcia Attending Unavailable Maris Scott Attending Unavailable Francisco Mckeon Attending Unavailable EUGENE SUAZO Attending Unavailable Francisco Mckeon MD Primary Care Provider Allergies Allergy Classification Reported Allergen(s) Allergy Type Date of Onset Reaction(s) Facility (20 sources) Latex; Translations: [latex] Drug allergy 2 [facility] (4 sources) Tetracyclines; Translations: [Tetracyclines] Propensity to adverse reactions 1 [facility] (2 sources) Amoxicillin / Clavulanate Drug Allergy 3 [facility] Medications Current Medications Medication Drug Class(es) Dates Sig (Normalized) Sig (Original) acetaminophen 500 mg oral tablet (3 sources) Start: 03-04-2021 take 500 mg by mouth every four hours Acetaminophen Active 500 MG PO Q4H 0 March 04, 2021 1:00am amiodarone hydrochloride 200 mg oral tablet (7 sources) Antiarrhythmic Start: 02-23-2021 End: 03-04-2021 take 400 mg by mouth twice daily Amiodarone Active 400 MG PO Twice daily 120 March 04, 2021 1:00am take 2 tablets by mouth twice da ottoniel Amiodarone HCl - 200 MG Oral Tablet TAKE 2 TABLET Twice daily Quantity: 112 Refills: 0 Ordered: 31-Mar-2021 Jason Alex DO Active apixaban 5 mg oral tablet (7 sources) Factor Xa Inhibitor Start: 02-23-2021 End: 03-04-2021 take 1 tablet by mouth twice daily Apixaban (Eliquis) 5 mg Tablet Active 5 MG PO Twice daily 60 March 04, 2021 1:00am aspirin 81 mg chewable tablet (20 sources) Platelet Aggregation Inhibitor, Nonsteroidal Anti-inflammatory Drug Start: 02-23-2021 End: 03-04-2021 take 1 tablet by mouth once daily Aspirin (Children's Aspirin) 81 mg Tablet,Chewable Active 81 MG PO Daily 30 March 04, 2021 1:00am Start: 02-10-2021 End: 02-23-2021 take 81 mg by mouth once daily Aspirin Discontinued 81 MG PO Daily February 10, 2021 1:00am February 23, 2021 3:38pm Start: 07-22-2019 take 1 tablet by fran th once daily aspirin 81 mg Oral EC Tab 81 mg = 1 tab(s), Oral, Daily, Refills(s) 0, Prophylaxis Start Date: 07/22/19 Status: Ordered atorvastatin 80 mg oral tablet (20 sources) HMG-CoA Reductase Inhibitor Start: 12-08-2022 atorvastatin (Lipito r) 80 MG tablet 12/08/2022 Active Start: 02-23-2021 End: 03-04-2021 take 1 tablet by mouth once daily atorvastatin 80 mg Tab 80 mg = 1 tab(s), Oral, Daily, # 90 tab(s), Refills(s) 3, Pharmacy: [facility]/pharmacy #[id number], 154.5, cm, 09/11/22 10:05:00 EDT, Height/Length Dosing, 63, kg, 09/11/22 10:05:00 EDT, Weight Dosing Start Date: 09/11/22 Status: Ordered chlorhexidine gluconate 1.2 mg/ml mouthwash (6 sources) Start: 02-23-2021 End: 03-04-2021 Chlorhexidine Gluconate Active 15 ML MUCOUS MEM Three times daily 500 March 04, 2021 1:00am Cholestyramine Resin (7 sources) Bile Acid Sequestrant Start: 01-25-2024 cholestyramine Refills(s) 0 Start Date: 01/25/24 Status: Ordered Start: 01-24-2024 Questran 4 g/9 g oral powder = 1 packet(s), Oral, BID, # 60 EA, Refills(s) 0, Pharmacy: [facility]/pharmacy #[id number], 164, cm, 01/24/24 8:54:00 EST, Height/Length Dosing, 66, kg, 01/24/24 8:54:00 EST, Weight Dosing Start Date: 01/24/24 Status: Ordered dapagliflozin 10 mg oral tablet (7 sources) Sodium-Glucose Cotransporter 2 Inhibitor Start: 01-01-2024 take 1 tablet by mouth once daily dapagliflozin 10 mg oral tablet 10 mg = 1 tab(s), Oral, Daily, # 90 tab(s), Refills(s) 1, Pharmacy: [facility]/pharmacy #[id number], 154, cm, 01/01/24 9:31:00 EDT, Height/Length Dosing, 66.8, kg, 01/01/24 9:31:00 EDT, Weight Dosing Start Date: 01/01/24 Status: Ordered Start: 07-27-2023 take 1 tablet by [facility] once daily dapagliflozin 10 mg oral tablet 10 mg = 1 tab(s), Oral, Daily, # 30 tab(s), Refills(s) 6, Pharmacy: [facility]/pharmacy #[id number], 154, cm, 07/27/23 10:05:00 EDT, Height/Length Dosing, 63.3, kg, 07/27/23 10:05:00 EDT, Weight Dosing Start Date: 07/27/23 Status: Ordered docusate sodium 100 mg oral capsule (14 sources) Start: 03-04-2021 take 1 capsule by mo [facility] twice daily as needed for constipation docusate sodium (Colace) 100 MG capsule TAKE 1 CAPSULE BY MOUTH TWICE A DAY NEEDED FOR CONSTIPATION 09/13/2022 Active Start: 02-23-2021 End: 03-04-2021 take 1 capsule by mouth once daily at bedtime Docusate Sodium (Dok) 100 mg Capsule Discontinued 100 MG PO Daily at bedtime 0 February 23, 2021 1:00am March 04, 2021 1:39pm take 1 tablet by fran twice daily docusate sodium (Colace) 100 mg tablet Take 1 tablet (100 mg) by mouth 2 times a day. 0 Active estradiol 0.1 mg/ml vaginal cream (2 sources) Estrogen Start: 03-17-2024 Estrace 0.1 mg /g Cream See Instructions, 42.5 gm, Refill(s) 2, Apply pea sized amount to urethra/vagina 3x a week for 1 month, then 2x a week afterwards, [facility]/pharmacy #[id number], 154, cm, 01/25/24 13:53:00 EST, Height/Length Dosing, 66.4, kg, 01/25/24 13:53:00 EST, Weight Dosing Start Date: 03/17/24 Status: Ordered ezetimibe 10 mg oral tablet (10 sources) Dietary Cholesterol Absorption Inhibitor Start: 12-05-2023 take 1 tablet by mouth once daily Zetia 10 mg Tab 10 mg = 1 tab(s), Oral, Daily, # 90 tab(s), Refills(s) 1, Pharmacy: [facility]/pharmacy #[id number], 154, cm, 09/10/23 11:04:00 EDT, Height/Length Dosing, 64, kg, 09/10/23 11:04:00 EDT, Weight Dosing Start Date: 12/05/23 Status: Ordered Start: 07-27-2023 take 1 tablet by fran once daily Zetia 10 mg Tab 10 mg = 1 tab(s), Oral, Daily, # 30 tab(s), Refills(s) 6, Pharmacy: [facility]/pharmacy #[id number], 154, cm, 07/27/23 10:05:00 EDT, Height/Length Dosing, 63.3, kg, 07/27/23 10:05:00 EDT, Weight Dosing Start Date: 07/27/23 Status: Ordered famotidine 20 mg oral tablet (6 sources) Histamine-2 Receptor Antagonist Start: 02-23-2021 End: 03-04-2021 take 20 mg by mouth twice daily Famotidine Active 20 MG PO Twice daily 60 March 04, 2021 1:00am fluconazole 150 mg oral tablet (2 sources) Azole Antifungal Start: 07-26-2023 take 1 tablet by mouth once Diflucan 150 mg Tab 150 mg = 1 tab(s), Oral, Once, # 1 tab(s), Refills(s) 0, Pharmacy: [facility]/pharmacy #[id number], 154.4, cm, 07/16/23 8:58:00 EDT, Height/Length Dosing, 62.8, kg, 07/16/23 8:58:00 EDT, Weight Dosing Start Date: 07/26/23 Status: Ordered fluticasone propionate 0.05 mg/actuat metered dose nasal spray (18 sources) Corticosteroid Start: 09-17-2023 fluticasone Na mark 0.05 mg/inh Comfort See Instructions, 48 mL, Refill(s) 1, USE 2 SPRAYS IN EACH NOSTRIL ONCE A DAY, [id number], 154, cm, 09/10/23 11:04:00 EDT, Height/Length Dosing, 64, kg, 09/10/23 11:04:00 EDT, Weight Dosing Start Date: 09/17/23 Status: Ordered Start: 09-10-2023 Flonase 0.05 m g/inh [place] 2 spray(s), Nasal, Daily, 16 gram, Refill(s) 0, each nostril, [facility]/pharmacy #[id number], 154, cm, 09/10/23 11:04:00 EDT, Height/Length Dosing, 64, kg, 09/10/23 11:04:00 EDT, Weight Dosing Start Date: 09/10/23 Status: Ordered Freestyle [place] Flash Glucose Monitoring 14 Day System (Sensor) (11 sources) Start: 07-03-2023 Freestyle Libr e Flash Glucose Monitoring 14 Day System (Sensor) Freestyle [place] Flash Glucose Monitoring 14 Day System (Sensor), See Instructions, 6 EA, 11, Freestyle [place] 2 Flash Glucose Monitoring 14 Day System (Sensor). Replace sensor every 14 days., [facility]/pharmacy #[id number], Supply, 154.4, cm, 07/03/23 10:36:00 EDT, Height/Length Dosing, 63.1, kg, 07/03/23 10:36:00 EDT, Weight Dosing Start Date: 07/03/23 Status: Ordered gabapentin 300 mg oral capsule (20 sources) Anti-epilepti c Agent Start: 08-29-2023 take 1 capsule by mouth once daily at bedtime gabapentin 300 mg Cap 300 mg = 1 cap(s), Oral, Once a day (at bedtime), # 90 cap(s), Refills(s) 3, Pharmacy: [facility]/pharmacy #[id number], 154, cm, 07/29/23 12:14:00 EDT, Height/Length Dosing, 63.5, kg, 07/29/23 12:14:00 EDT, Weight Dosing Start Date: 08/29/23 Status: Ordered Start: 05-22-2023 take 1 capsule by mo uth once daily at bedtime gabapentin 300 mg Cap 300 mg = 1 cap(s), Oral, Once a day (at bedtime), # 90 cap(s), Refills(s) 3, Pharmacy: [facility]/pharmacy #[id number], 154.4, cm, 04/23/23 9:26:00 EST, Height/Length Dosing, 63.5, kg, 04/23/23 9:26:00 EST, Weight Dosing Start Date: 05/22/23 Status: Ordered Start: 06-21-2022 take 1 capsule by mo uth in the morning, then take 1 capsule by mouth in the evening, then take 1 capsule by mouth at bedtime gabapentin (Neurontin) 100 MG capsule Take 100 mg by mouth in the morning and 100 mg in the evening and 100 mg before bedtime. 06/21/2022 Active Start: 02-10-2021 End: 02-23-2021 take 300 mg by mouth once daily at bedtime Gabapentin Discontinued 300 MG PO Daily at bedtime February 10, 2021 1:00am February 23, 2021 3:38pm Start: 07-22-2019 take 3 capsules by m outh at bedtime gabapentin 100 mg Cap 300 mg = 3 cap(s), Oral, Bedtime, Refills(s) 0, Neuropathy Start Date: 07/22/19 Status: Ordered GABAPENTIN ORAL Take by mouth once daily. 0 Active Gabapentin 100 M G TABS 1 daily Quantity: 0 Refills: 0 Ordered: 17-Jan-2022 DO Active glyBURIDE 5 mg oral tablet (8 sources) Sulfonylurea Start: 02-10-2021 End: 03-04-2021 take 5 mg by mouth once daily at breakfast Glyburide Active 5 MG PO Daily with breakfast March 04, 2021 1:00am hydroCHLOROthiazide 12.5 mg oral capsule (3 sources) Thiazide Diuretic Start: 02-18-2024 take 1 capsule by mouth once daily hydrochlorothiazide 12.5 mg Cap 12.5 mg = 1 cap(s), Oral, Daily, # 90 cap(s), Refills(s) 3, Pharmacy: [facility]/pharmacy #[id number], 154, cm, 01/25/24 13:53:00 EST, Height/Length Dosing, 66.4, kg, 01/25/24 13:53:00 EST, Weight Dosing Start Date: 02/18/24 Status: Ordered Start: 01-25-2024 take 1 capsule by [facility] once daily hydrochlorothiazide 12.5 mg Cap 12.5 mg = 1 cap(s), Oral, Daily, # 30 cap(s), Refills(s) 6, Pharmacy: [facility]/pharmacy #[id number], 154, cm, 01/25/24 13:53:00 EST, Height/Length Dosing, 66.4, kg, 01/25/24 13:53:00 EST, Weight Dosing Start Date: 01/25/24 Status: Ordered Insulin Aspart U-100 (Novolog Flexpen U-100 Insulin) 100 unit/mL (3 mL) Insulin Pen (3 sources) Start: 03-04-2021 inject 5 [IU] by subcutaneous injection once before mealtime Insulin Aspart U-100 (Novolog Flexpen U-100 Insulin) 100 unit/mL (3 mL) Insulin Pen Active 5 UNITS SUBCUT 3x/Day before meals 0 March 04, 2021 1:00am 3 ml insulin detemir 100 unt/ml pen injector (14 sources) Insulin Analog Start: 12-01-2022 inject 15 [IU] by subcutaneous injection in the morning, then inject 17 [IU] by subcutaneous injection in the evening Levemir FlexPen 100 UNIT/ML pen INJECT 15 UNITS SUBCUTANEOUSLY IN THE MORNING AND 17 UNITS IN THE EVENING *ROTATE INJECTION SITES* 12/01/2022 Active Start: 03-04-2021 Insulin Detemi r U-100 (Levemir Flextouch U-100 Insuln) 100 unit/mL (3 mL) Insulin Pen Active 25 UNITS SUBCUT Daily at bedtime 7.5 30 March 04, 2021 1:00am Start: 02-23-2021 End: 03-04-2021 Insulin Detemir U-100 (Levem ir Flextouch U-100 Insuln) 100 unit/mL (3 mL) Insulin Pen Discontinued 20 UNITS SUBCUT Daily at bedtime 0 February 23, 2021 1:00am March 04, 2021 1:39pm 3 ml insulin glargine 100 unt/ml pen injector (15 sources) Insulin Analog Start: 03-04-2024 inject 15 [IU] by subcutaneous injection in the morning, then inject 17 [IU] by subcutaneous injection in the evening Start: 10-02-2023 Lantus Solosta r Pen 100 units/mL subcutaneous solution See Instructions, 15 u subq in the morning and 17 units sub q in the evening, # 15 mL, Refills(s) 3, Pharmacy: [facility]/pharmacy #[id number], 154, cm, 09/10/23 11:04:00 EDT, Height/Length Dosing, 64, kg, 09/10/23 11:04:00 EDT, Weight Dosing Start Date: 10/02/23 Status: Ordered Start: 05-28-2023 inject 15 [IU] by puri bcutaneous injection once in the morning, then inject 17 [IU] by subcutaneous injection once in the evening Basaglar KwikPen 100 units/mL subcutaneous solution See Instructions, 15 units sub q in the morning and 17 units sub q in the evening, # 15 mL, Refills(s) 3, Pharmacy: [facility]/pharmacy #[id number], 154.4, cm, 04/23/23 9:26:00 EST, Height/Length Dosing, 63.5, kg, 04/23/23 9:26:00 EST, Weight Dosing Start Date: 05/28/23 Status: Ordered Start: 02-10-2021 End: 02-23-2021 Insulin Glargine (Lantus Belen ostar U-100 Insulin) 100 unit/mL (3 mL) Insulin Pen Discontinued 20 UNIT SUBCUT Daily at bedtime February 10, 2021 1:00am February 23, 2021 3:38pm Start: 07-22-2019 inject 20 [IU] by puri bcutaneous injection once daily at bedtime Lantus 100 units/mL Injection-Insulin 20 unit(s), SubCutaneous, Once a day (at bedtime), Refills(s) 0, Blood glucose Start Date: 07/22/19 Status: Ordered levothyroxine sodium 0.05 mg oral tablet (14 sources) l-Thyroxine Start: 03-20-2023 take 1 tablet by mouth once daily levothyroxine 50 mcg (0.05 mg) Tab 50 mcg = 1 tab(s), Oral, Daily, # 90 tab(s), Refills(s) 3, [id number] 154.4, cm, 03/01/23 15:22:00 EST, Height/Length Dosing, 62.7, kg, 03/01/23 15:22:00 EST, Weight Dosing Start Date: 03/20/23 Status: Ordered Start: 09-24-2022 take 1 tablet by fran th in the morning levothyroxine (Synthroid, Levoxyl) 50 MCG tablet Take 50 mcg by mouth in the morning. 09/24/2022 Active take 1 tablet by fran th once daily before mealtime levothyroxine (Synthroid, Levoxyl) 25 mcg tablet Take 1 tablet (25 mcg) by mouth once daily in the morning. Take before meals. 0 Active losartan potassium 50 mg oral tablet (20 sources) Angiotensin 2 Receptor Temitope Start: 01-01-2024 take 1 tablet by mouth twice daily losartan 50 mg Tab 50 mg = 1 tab(s), Oral, BID, # 180 tab(s), Refills(s) 1, [id number], 154, cm, 01/01/24 9:31:00 EDT, Height/Length Dosing, 66.8, kg, 01/01/24 9:31:00 EDT, Weight Dosing Start Date: 01/01/24 Status: Ordered Start: 08-29-2023 take 1 tablet by fran th twice daily losartan 50 mg Tab 50 mg = 1 tab(s), Oral, BID, # 60 tab(s), Refills(s) 6, Pharmacy: [facility]/pharmacy #[id number], 154, cm, 07/29/23 12:14:00 EDT, Height/Length Dosing, 63.5, kg, 07/29/23 12:14:00 EDT, Weight Dosing Start Date: 08/29/23 Status: Ordered Start: 07-27-2023 take 1 tablet by fran th twice daily losartan 50 mg Tab 50 mg = 1 tab(s), Oral, BID, # 60 tab(s), Refills(s) 6, [id number], 154, cm, 07/27/23 10:05:00 EDT, Height/Length Dosing, 63.3, kg, 07/27/23 10:05:00 EDT, Weight Dosing Start Date: 07/27/23 Status: Ordered Start: 07-03-2023 take 1 tablet by fran th once daily losartan 100 mg Tab See Instructions, TAKE 1 TABLET BY MOUTH EVERY DAY, # 90 tab(s), Refills(s) 0, [id number], 154.4, cm, 07/03/23 10:36:00 EDT, Height/Length Dosing, 63.1, kg, 07/03/23 10:36:00 EDT, Weight Dosing Start Date: 07/03/23 Status: Ordered Start: 01-23-2023 End: 01-23-2024 take 2 tablets by mouth once daily losartan (Cozaar) 25 mg tablet Indications: Arteriosclerotic heart disease (ASHD) , Essential hypertension, benign Take 2 tablets (50 mg) by mouth once daily. 180 tablet 3 01/23/2023 01/23/2024 Active Start: 01-17-2022 End: 01-23-2023 take 1 tablet by mouth once daily losartan (Cozaar) 25 mg tablet Take 1 tablet (25 mg) by mouth once daily. 0 01/17/2022 01/23/2023 Discontinued (Reorder) Start: 04-19-2021 take 0.5 tablet by m outh once daily Losartan Potassium 25 MG Oral Tablet TAKE 0.5 TABLET Daily Quantity: 45 Refills: 3 Ordered: 19-Apr-2021 Jason Alex DO Start : 19-Apr-2021 Active restart Start: 07-22-2019 losartan 25 mg Tab 12.5 mg, Oral, Daily, Refills(s) 0, High blood pressure Start Date: 07/22/19 Status: Ordered magnesium oxide 400 mg oral tablet (19 sources) Start: 12-04-2023 take 1 tablet by mouth once daily magnesium oxide 400 mg Tab See Instructions, TAKE 1 TABLET BY MOUTH EVERY DAY, # 90 tab(s), Refills(s) 3, Pharmacy: [facility] [id number], 154, cm, 09/10/23 11:04:00 EDT, Height/Length Dosing, 64, kg, 09/10/23 11:04:00 EDT, Weight Dosing Start Date: 12/04/23 Status: Ordered Start: 09-11-2022 take 1 tablet by fran once daily magnesium oxide 400 mg Tab 400 mg = 1 tab(s), Oral, Daily, # 90 tab(s), Refills(s) 4, [id number], 154, cm, 09/10/23 11:04:00 EDT, Height/Length Dosing, 64, kg, 09/10/23 11:04:00 EDT, Weight Dosing Start Date: 09/25/23 Status: Ordered Start: 03-04-2021 take 400 mg by mouth twice daily Magnesium Oxide Active 400 MG PO Twice daily 60 March 04, 2021 1:00am melatonin 5 mg oral tablet (9 sources) Start: 03-04-2021 take 5 mg by mouth once daily at bedtime Melatonin Active 5 MG PO Daily at bedtime 30 March 04, 2021 1:00am Start: 02-23-2021 End: 03-04-2021 take 10 mg by mouth once daily at bedtime Melatonin Discontinued 10 MG PO Daily at bedtime 0 February 23, 2021 1:00am March 04, 2021 1:39pm take 1 capsule by mo [facility] at bedtime Melatonin 10 MG Oral Capsule TAKE 1 CAPSULE Bedtime Quantity: 0 Refills: 0 Ordered: 19-Apr-2021 DO Active metFORMIN hydrochloride 500 mg oral tablet (20 sources) Biguanide Start: 06-29-2023 take 1 tablet by mouth once daily metformin 500 mg ER Tab 500 mg = 1 tab(s), Oral, Daily, # 90 tab(s), Refills(s) 3, Pharmacy: [facility]/pharmacy #[id number], 154.4, cm, 04/23/23 9:26:00 EST, Height/Length Dosing, 63.5, kg, 04/23/23 9:26:00 EST, Weight Dosing Start Date: 06/29/23 Status: Ordered Start: 07-22-2019 End: 02-23-2021 take 500 mg by mouth once daily Metformin Discontinued 500 MG PO Daily February 10, 2021 1:00am February 23, 2021 3:38pm 24 hr metoprolol succinate 100 mg extended release oral tablet (20 sources) beta-Adrenergic Temitope Start: 07-27-2023 take 1 tablet by mouth once daily metoprolol 100 mg ER Tab 100 mg = 1 tab(s), Oral, Daily, # 30 tab(s), Refills(s) 6, Pharmacy: [facility]/pharmacy #[id number], 154, cm, 07/27/23 10:05:00 EDT, Height/Length Dosing, 63.3, kg, 07/27/23 10:05:00 EDT, Weight Dosing Start Date: 07/27/23 Status: Ordered Start: 10-04-2022 take 1 tablet by fran th every twenty-four hours in the morning metoprolol succinate XL (Toprol-XL) 50 MG 24 hr tablet Take 50 mg by mouth in the morning. 10/04/2022 Active Start: 01-17-2022 take 1 tablet by mouth once da ottoniel metoprolol 50 mg ER Tab 50 mg = 1 tab(s), Oral, Daily, # 90 tab(s), Refills(s) 3, Pharmacy: [facility]/pharmacy #[id number], 154.5, cm, 09/11/22 10:05:00 EDT, Height/Length Dosing, 63, kg, 09/11/22 10:05:00 EDT, Weight Dosing Start Date: 09/11/22 Status: Ordered Start: 02-23-2021 End: 03-04-2021 take 25 mg by mouth every six hours Metoprolol Tartrate Active 25 MG PO Every 6 hours 120 March 04, 2021 1:00am nystatin 100 unt/mg topical ointment (6 sources) Polyene Antifungal Start: 02-23-2021 End: 03-04-2021 Nystatin Active 1 APPLIC TOPICAL Twice daily 30 March 04, 2021 1:00am povidone-iodine 0.1 mg/mg topical ointment (9 sources) Antiseptic Start: 02-23-2021 End: 12-17-2021 Povidone-Iodine Active 1 APPLIC TOPICAL Daily 30 March 04, 2021 1:00am Start: 02-23-2021 End: 03-04-2021 Povidone-Iodine Discontinued 1 APPLIC TOPICAL PRN 0 February 23, 2021 1:00am March 04, 2021 1:39pm traMADol hydrochloride 50 mg oral tablet (9 sources) Opioid Agonist Start: 02-23-2021 End: 03-04-2021 take 50 mg by mouth every four hours Tramadol Active 50 MG PO Q4H 30 5 March 04, 2021 1:00am Start: 02-23-2021 End: 03-04-2021 take 100 mg by mouth every six hours Tramadol Discontinued 100 MG PO Q6H 0 February 23, 2021 1:00am March 04, 2021 1:39pm Completed/Discontinued Medications Medication Drug Class(es) Dates Sig (Normalized) Sig (Original) aluminum hydroxide 40 mg/ml / magnesium hydroxide 40 mg/ml / simethicone 4 mg/ml oral suspension (3 sources) Start: 02-23-2021 End: 03-04-2021 take 1 mL by mouth every four hours Alum-Mag Hydroxide-Simeth (Mag-Al Plus) 200-200-20 mg/5 mL Suspension Discontinued 30 ML PO Q4H 0 February 23, 2021 1:00am March 04, 2021 1:39pm bumetanide 1 mg oral tablet (6 sources) Loop Diuretic Start: 04-19-2021 take 1 tablet by mouth every other day Bumetanide 1 MG Oral Tablet TAKE 1 TABLET EVERY OTHER DAY Quantity: 45 Refills: 3 Ordered: 19-Apr-2021 Jason Alex DO Start : 19-Apr-2021 Active Start: 03-04-2021 take 1 mg by mouth once daily Bumetanide Active 1 MG PO DAILY@0800 30 March 04, 2021 1:00am hydroCHLOROthiazide 12.5 mg / losartan potassium 100 mg oral tablet (3 sources) Thiazide Diuretic, Angiotensin 2 Receptor Temitope Start: 02-10-2021 End: 02-23-2021 take 1 tablet by mouth once daily Losartan-Hydrochlorothiazide Discontinued 1 TAB PO Daily February 10, 2021 1:00am February 23, 2021 3:38pm 3 ml insulin aspart, human 100 unt/ml pen injector (14 sources) Insulin Analog Start: 07-17-2022 NovoLOG FlexPen 100 units/mL injectable solution See Instructions, check blood sugars AC and Hs and cover 150-200 2u, 201-250 4u, 251-300 6u, 301-350 8u, 351-400 10u and 1unit per 15 carbs, Refills(s) 0 Start Date: 07/17/22 Status: Ordered Start: 07-03-2022 NovoLOG FLEXPE N 100 UNIT/ML pen INJECT BEFORE MEALS AND AT BEDITME PERSLIDING SCALE*MAX OF 80 UNITS DAILY* 07/03/2022 Active inject 1 [IU] by sub cutaneous injection three times daily before mealtime insulin aspart (NovoLOG U-100 Insulin aspart) 100 unit/mL injection Inject 1 Units under the skin 3 times a day before meals. Take as directed per insulin instructions. 0 Active lactulose 667 mg/ml oral solution (3 sources) Osmotic Laxative Start: 02-23-2021 End: 03-04-2021 take 10 g by mouth once daily Lactulose Discontinued 10 GM PO Daily 0 February 23, 2021 1:00am March 04, 2021 1:39pm Magnesium Hydroxide (3 sources) Start: 02-23-2021 End: 03-04-2021 take 1 mL by mouth once daily Magnesium Hydroxide (Milk Of Magnesia) 400 mg/5 mL Suspension Discontinued 30 ML PO Daily 0 February 23, 2021 1:00am March 04, 2021 1:39pm meclizine hydrochloride 25 mg oral tablet (3 sources) Antiemetic Start: 02-10-2021 End: 03-04-2021 take 25 mg by mouth once daily Meclizine Discontinued 25 MG PO Daily February 10, 2021 1:00am March 04, 2021 1:39pm nitroglycerin 0.4 mg sublingual tablet (3 sources) Nitrate Vasodilator Start: 02-23-2021 End: 03-04-2021 Nitroglycerin Discontinued 0.4 MG SUBLINGUAL Q5M 0 February 23, 2021 1:00am March 04, 2021 1:39pm ondansetron 4 mg oral tablet (3 sources) Serotonin-3 Receptor Antagonist take 1 tablet by mouth every four to six hours as needed Ondansetron HCl - 4 MG Oral Tablet 1 tablet every 4-6 hours as needed Quantity: 0 Refills: 0 Ordered: 19-Apr-2021 DO Active potassium chloride 20 meq extended release oral tablet (6 sources) Start: 04-19-2021 take 1 tablet by mouth every other day Potassium Chloride Henny ER 20 MEQ Oral Tablet Extended Release TAKE 1 TABLET EVERY OTHER DAY Quantity: 45 Refills: 3 Ordered: 19-Apr-2021 Jason Alex DO Start : 19-Apr-2021 Active dose decreased Start: 03-04-2021 Potassium Chlo ride (Klor-Con M20) 20 mEq Tablet,Er Particles/Crystals Active 40 MEQ PO Twice daily 120 March 04, 2021 1:00am Problems Active Problems Problem Classification Problem Date Documented Da te Episodic/Chronic Abdominal pain (11 sources) Vulvovaginal discomfort; Translations: [Pelvic and perineal pain] Onset: 2 02-14-2021 Episodic Acute myocardial infarction (3 sources) Myocardial infarction; Translations: [Non-ST elevation (NSTEMI) myocardial infarction] 02-24-2021 Chronic Allergic reactions (3 sources) Latex allergy status; Translations: [Allergy to latex] 02-12-2021 Episodic Blindness and vision defects (3 sources) Diplopia; Translations: [Diplopia] Onset: 3 12-11-2022 Episodic Calculus of urinary tract (7 sources) Ureteric stone; Translations: [Calculus of ureter] Onset: 4 Episodic Cardiac dysrhythmias (13 sources) Atrial fibrillation; Translations: [Atrial fibrillation] Onset: 3 02-24-2021 Chronic Cardiac dysrhythmias (4 sources) Palpitations; Translations: [PALPITATIONS] Onset: 3 Episodic Cataract (3 sources) After-cataract of bilateral eyes; Translations: [Other secondary cataract, bilateral] Onset: 3 12-11-2022 Chronic Coagulation and hemorrhagic disorders (3 sources) Thrombocytopenic disorder; Translations: [Thrombocytopenia, unspecified] 02-24-2021 Chronic Complication of device; implant or graft (1 source) Arteriosclerosis of coronary artery bypass graft; Translations: [Atherosclerosis of coronary artery bypass graft(s) without angina pectoris] Onset: 4 Chronic Complications of surgical procedures or medical care (3 sources) Pulmonary insufficiency following surgery; Translations: [Other postprocedural complications and disorders of respiratory system, not elsewhere classified] 02-16-2021 Episodic Conditions associated with dizziness or vertigo (15 sources) Benign paroxysmal vertigo, unspecified ear; Translations: [Benign paroxysmal positional vertigo] Onset: 2 Episodic Congestive heart failure; nonhypertensive (11 sources) Congestive heart failure 07-17-2022 Chronic Coronary atherosclerosis and other heart disease (20 sources) Coronary arteriosclerosis; Translations: [Coronary atherosclerosis of unspecified type of vessel, iqugmiut or graft] Onset: 3 02-13-2021 Chronic Coronary atherosclerosis and other heart disease (4 sources) Presence of aortocoronary bypass graft; Translations: [Presence of aortocoronary bypass graft] Onset: 3 Episodic Deficiency and other anemia (3 sources) Anemia; Translations: [Anemia, unspecified] 02-24-2021 Episodic Diabetes mellitus with complications (20 sources) Type 2 diabetes mellitus with hyperglycemia; Translations: [Type 1 diabetes mellitus with unspecified complications] Onset: 2 Chronic Diabetes mellitus without complication (20 sources) Diabetes mellitus; Translations: [Diabetes mellitus without mention of complication, type II or unspecified type, not stated as uncontrolled] Onset: 2 02-10-2021 Chronic Comment on above: Linked per outpatien t [facility] policy. Disorders of lipid metabolism (20 sources) Hyperlipidemia; Translations: [Other and unspecified hyperlipidemia] Onset: 3 02-12-2021 Chronic Esophageal disorders (11 sources) Gastroesophageal reflux disease without esophagitis 02-13-2023 Chronic Essential hypertension (20 sources) Benign essential hypertension; Translations: [Benign essential hypertension] Onset: 2 02-10-2021 Chronic Fluid and electrolyte disorders (1 source) Hypokalemia; Translations: [HYPOKALEMIA] Onset: 3 Episodic Genitourinary symptoms and ill-defined conditions (8 sources) Microscopic hematuria; Translations: [Other microscopic hematuria] Onset: 4 Episodic Headache; including migraine (3 sources) Headache; including migraine; Translations: [HEADACHE UNSPECIFIED] Onset: 2 Hypertension with complications and secondary hypertension (11 sources) Hypertensive heart disease with congestive heart failure 01-24-2023 Chronic Comment on above: Linked per outpaiten t [facility] policy. Inflammatory diseases of female pelvic organs (3 sources) Vaginitis; Translations: [Acute vaginitis] 02-24-2021 Episodic Menopausal disorders (1 source) Atrophic vaginitis; Translations: [Postmenopausal atrophic vaginitis] Onset: 4 Chronic Osteoarthritis (1 source) Unspecified osteoarthritis, unspecified site; Translations: [UNSPECIFIED OSTEOARTHRITIS UNS SITE] Onset: 2 Chronic Other aftercare (3 sources) intermediate (current) use of insulin; Translations: [NURSING HOME CURRENT USE OF INSULIN] Onset: 3 Episodic Other aftercare (1 source) guardian ad litem (current) use of aspirin; Translations: [NURSING HOME CURRENT USE OF ASPIRIN] Onset: 3 Episodic Other aftercare (1 source) guardian ad litem (current) use of oral hypoglycemic drugs; Translations: [NURSING HOME USE ORAL HYPOGLYCEMIC DX] Onset: 3 Episodic Other and unspecified benign neoplasm (3 sources) Neoplasm of meninges; Translations: [Benign neoplasm of meninges, unspecified] 02-12-2021 Chronic Other and unspecified benign neoplasm (11 sources) 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 Other diseases of bladder and urethra (1 source) Urethral caruncle; Translations: [Urethral caruncle] Onset: 4 Episodic Other eye disorders (3 sources) Dry eyes; Translations: [Dry eye syndrome of bilateral lacrimal glands] Onset: 3 12-11-2022 Episodic Other gastrointestinal disorders (3 sources) Constipation; Translations: [Constipation, unspecified] 02-12-2021 Episodic Other gastrointestinal disorders (5 sources) Urgent desire for stool; Translations: [Fecal urgency] Onset: 4 Episodic Other gastrointestinal disorders (5 sources) Altered bowel function; Translations: [Change in bowel habit] Onset: 4 Episodic Other gastrointestinal disorders (4 sources) H/O: colitis 01-24-2024 Episodic Other infections; including parasitic (1 source) H/O: infectious disease; Translations: [Personal history of other infectious and parasitic diseases] Onset: 4 Episodic Other liver diseases (11 sources) Elevated total bilirubin 07-19-2022 Episodic Other lower respiratory disease (3 sources) Slow respiration; Translations: [Other abnormalities of breathing] 02-16-2021 Episodic Other nervous system disorders (3 sources) Postoperative pain ; Translations: [Other acute postprocedural pain] 03-04-2021 Episodic Other nutritional; endocrine; and metabolic disorders (1 source) Hypomagnesemia; Translations: [HYPOMAGNESEMIA] Onset: 2 Chronic Other screening for suspected conditions (not mental disorders or infectious disease) (1 source) Encounter for screening mammogram for malignant neoplasm of breast; Translations: [Encounter for screening mammogram for malignant neoplasm of breast] Onset: 4 Episodic Other upper respiratory infections (10 sources) Acute upper respiratory infection 07-16-2023 Episodic Otitis media and related conditions (9 sources) Dysfunction of eustachian tube 09-10-2023 Episodic Peripheral and visceral atherosclerosis (11 sources) Aortoiliac atherosclerosis 01-25-2023 Chronic Comment on above: Added per Dr. Mervin asher response, per outpatient [facility] policy. Residual codes; unclassified (5 sources) Body mass index 20-24 - normal; Translations: [Body Mass Index between 19-24, adult] Episodic Residual codes; unclassified (1 source) Acquired absence of organ; Translations: [Acquired absence of other specified parts of digestive tract] Onset: 4 Episodic Residual codes; unclassified (1 source) Family history of malignant neoplasm of digestive organ; Translations: [Family history of malignant neoplasm of digestive organs] Onset: 4 Episodic Residual codes; unclassified (2 sources) Localized edema; Translations: [Localized edema] Onset: 5 Episodic Thyroid disorders (4 sources) Hypothyroidism, unspecified; Translations: [HYPOTHYROIDISM UNSPECIFIED] Onset: 3 Chronic Unclassified (11 sources) Injury of left foot 09-11-2022 Unclassified (11 sources) Long-term current use of insulin 01-24-2023 Comment on above: Added per outpatient [facility] policy. 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 I want her to reduce atorvastatin from 80 mg daily to 20 mg daily. She should get a follow-up lipid profile in 3 months. Spoke to patient and advised her of Dr. Suazo's message. New script sent to [facility]. Order for repeat lipid panel ion 3 months mailed to patient 07/25/2024 Normal [facility] 36 MD Lupis Caicedo MA Her cholesterol is low. I want her to reduce atorvastatin from 80 mg daily to 20 mg daily. She should get a follow-up lipid profile in 3 months. Normal [facility] Office Visiton 07-21-2024 Follow-up visit [id number] Rafi Roper 1955 F Date Provider Department [facility] Jose Martin [facility] Family History Problem Relation Age of Onset Pneumonia Father Lung cancer Brother Family Status - Relation Status Age at Mother Father Brother Level of Service:[id number] [place] OFFICE/OUTPATIENT NEW MODERATE MDM 45 MINUTES [facility] Ambulatory Visit Summaryon 0 07-01-2024 Ambulatory Visit Summary Ambulatory Visit Summary RAFI ROPER :1955 Visit Date:07/01/2024 Ambulatory Visit Instructions Your Diagnosis Benign neoplasm of cerebral meninges CHF (congestive heart failure) DM type 2 causing vascular disease Diabetic neuropathy Hypertensive heart disease with CHF Long-term insulin use Type 2 diabetes mellitus with hyperlipidemia BMI 26.0-26.9,adult Overweight (BMI 25.0-29.9) Nonsmoker Hyperlipidemia, unspecified Your Care Team Attending Physician - Francisco Mckeon MD Primary Care Physician - Francisco Mckeon MD This Is Your Medications List Misc Prescription (Freestyle Lokesh 3+ Flash Glucose Monitoring 14 Day System (Sensor)) Misc Prescription (Misc DME Prescription) Misc Prescription (Pen Needle 31G x 5mm) Misc Prescription (reader) aspirin (aspirin 81 mg Oral EC Tab) atorvastatin (atorvastatin 80 mg Tab) cholestyramine (Questran 4 g/9 g oral powder) estradiol topical (Estrace 0.1 mg/g Cream) ezetimibe (Zetia 10 mg Tab) fluticasone nasal (Flonase 0.05 mg/inh [place]) gabapentin (gabapentin 300 mg Cap) hydrochlorothiazide (hydrochlorothiazide 12.5 mg Cap) insulin aspart (NovoLOG FlexPen 100 units/mL injectable solution) insulin glargine (Lantus Solostar Pen 100 units/mL subcutaneous solution) levothyroxine (levothyroxine 50 mcg (0.05 mg) Tab) losartan (losartan 50 mg Tab) magnesium oxide (magnesium oxide 400 mg Tab) metformin (metformin 500 mg ER Tab) metoprolol (metoprolol succinate 100 mg ER Tab) Procedures Performed Open heart surgery (2020), Cataract extraction and insertion of intraocular lens (07/23/2019), Cholecystectomy, Colonoscopy, Tooth extraction, Tubal ligation. Discharge Vitals Temperature (Tympanic) 36.8 ???C Heart Rate (Peripheral) 76 Respiratory Rate 18 Blood Pressure 132/86 Height 154 cm Height 61 in Weight 63.7 kg Weight 140.434 lb BMI 26.86 What to do next Scheduled Follow-Up Appointments Sunday 2:30 PM EDT With: Preethi SHANNON, Maldonado [place] Where: [facility] Sunday 8:40 AM EDT With: Francisco Mckeon MD Where: [place] [phone]- Medications What How Much When Why Instructions Unchanged aspirin (aspirin 81 mg Oral EC Tab) 1 Tablets By Mouth Every day Unchanged atorvastatin (atorvastatin 80 mg Tab) See instructions TAKE 1 TABLET BY MOUTH EVERY DAY Unchanged cholestyramine (Questran 4 g/ 9 g oral powder) 1 Packets By Mouth 2 times a day Family history of colon cancer Duration: 30 Days Unchanged estradiol topical (Estrace 0.1 mg/ g Cream) See instructions Urethral caruncle Vaginal atrophy Apply pea sized amount to urethra/ vagina 3x a week for 1 month, then 2x a week afterwards Unchanged ezetimibe (Zetia 10 mg Tab) 1 Tablets By Mouth Every day Duration: 90 Days Unchanged fluticasone nasal (Flonase 0.05 mg/ inh Romney) 2 Sprays Nasal Inhalation Every day each nostril Unchanged gabapentin (gabapentin 300 mg Cap) 1 Capsules By Mouth Once a day (at bedtime) BMI 26.0-26.9,adult Non-smoker Diabetic neuropathy Unchanged hydrochlorothiazide (hydrochlorothiazide 12.5 mg Cap) 1 Capsules By Mouth Every day Unchanged insulin aspart (NovoLOG FlexPen 100 units/ mL injectable solution) 15 Units Subcutaneous Before meals per SSI Unchanged insulin glargine (Lantus Solostar Pen 100 units/ mL subcutaneous solution) See instructions INJECT 15 UNITS SUBCUTANEOUSLY IN THE MORNING AND 17 UNITS IN THE EVENING Unchanged levothyroxine (levothyroxine 50 mcg (0.05 mg) Tab) See instructions TAKE 1 TABLET BY MOUTH EVERY DAY Unchanged losartan (losartan 50 mg Tab) 1 Tablets By Mouth 2 times a day Unchanged magnesium oxide (magnesium oxide 400 mg Tab) See instructions TAKE 1 TABLET BY MOUTH EVERY DAY Unchanged metformin (metformin 500 mg ER Tab) 1 Tablets By Mouth Every day Unchanged metoprolol (metoprolol succinate 100 mg ER Tab) 1 Tablets By Mouth Every day Unchanged Misc Prescription (Freestyle Lokesh 3+ Flash Glucose Monitoring 14 Day System (Sensor)) See instructions Diabetes Freestyle Lokesh 3 Flash Glucose Monitoring (Sensor). Replace sensor every 15 days. Unchanged Misc Prescription (Misc DME Prescription) See instructions BD ultra fine mini pen needles 31G X 3/ 16 Use 6 times a day to inject insulin Dx E10.8 Unchanged Misc Prescription (Pen Needle 31G x 5mm) See instructions Pen Needle 31G x 6mm. Pt needs 5 boxes of 3 months supply. Unchanged Misc Prescription (reader) See instructions free style 2 readerfree style 2 reader Allergies Latex ([place]) Problems Ongoing - Any problem that you are currently receiving treatment for. Aorto-iliac atherosclerosis Benign neoplasm of cerebral meninges BMI 26.0-26.9,adult Bowel habit changes BPPV (benign paroxysmal positional vertigo) CHF (congestive heart failure) Colon cancer screening COVID Diabet (more content not included)... Normal [facility] Family Medicine Office/Clini c Noteon 07-01-2024 Family Medicine Office/Clinic Note Family Medicine Office/Clinic Note Chief Complaint 6m follow up The patient reports concerns of increasing leg size and allergic shiners. HPI Staff Please speak with patient about scheduling an AWV, patient has refused in past. 6m follow up Patient is here for follow up on hypertension. How often are you checking your blood pressure? _no What are your average readings? _ Yearly BMP: _ BUN: 21 mg/dL (07/29/23 12:49:00) Calcium Lvl: 9.2 mg/dL (07/29/23 12:49:00) Chloride: 106 mmol/L (07/29/23 12:49:00) CO2: 30 mmol/L (07/29/23 12:49:00) Creatinine: 0.8 mg/dL (03/18/24 07:40:00) eGFR: 79 mL/min/1.73 m2 (03/18/24 07:40:00) Glucose Lvl: 153 mg/dL (07/29/23 12:49:00) Potassium Lvl: 3.7 mmol/L (07/29/23 12:49:00) Sodium Lvl: 141 mmol/L (07/29/23 12:49:00) Patient is here for follow up on Diabetes. How often are you checking your blood sugars? _yes What are your average readings? _150 Paresthesias, Ulcerations or sores? no Lisinopril, aspirin, statin therapy? Yes Foot Exam: no Eye Exam: upcoming on 08/08 Last A1c: Hgb A1C %: 7 % High (07/03/23 11:12:00) Hgb A1c POC: 6.3 % (01/01/24 10:01:00) Referred to Urology @ [facility] due to hematuria & [facility] for colonoscopy. (Deferred colonoscopy due to neg hx) Lower Ext. US 01/14/24 Mammogram 01/17/24 S/P Cystoscopy 03/17/24 CTU 03/18/24 Questions/Concerns: Does have some ?s about meds. History of Present Illness The patient is a 69-year-old female presenting with leg swelling and allergic shiners. She reports an increase in the size of her legs, including the one with prior vein stripping, compelling her to change her pant size. She has not experienced notable weight gain but does not weigh herself regularly. She is on a diuretic, which suggests the possibility of fluid retention even though her medications typically do not cause such symptoms. Additionally, the patient describes a black eye presentation consistent with an allergic shiner, hypothesized to be due to environmental factors such as pollen or feline allergens, even though the cats have been present for an extended period. Current management has included cold compresses and cetirizine. The patient reports issues with medication refills due to inconsistencies and complications at [facility], impacting the handling of her diabetes and other chronic conditions. She also shared recent minor episodes of hemorrhoidal bleeding managed with [id number] options and highlighted urinary concerns previously evaluated by Dr. Oscar, with plans for a repeat bladder test. The patient anticipates her upcoming mammogram due to intermittent breast tenderness on the left side, despite the absence of discharge. Requests for closer monitoring, especially for diabetes, have been aligned with insurance requirements mandating trimonthly reviews. - Scheduled repeat bladder testing due to previous minor urinary concerns. - Left breast tenderness, consideration for an earlier mammogram. - Evaluation of ankle swelling. - Medication refills and timing consents with [facility]. - Discussion over allergen management strategies, including pollen. - Evaluation of glucose-lowering alternatives to manage diabetes: introduction to Trulicity trial in place of Lantus or sliding scale insulin. - Insulin regimen review and potential reduction. - Recommendation for a sales enablement consultant change and continuity care with [facility] cardiologists. Review of Systems PHQ Score Initial Depression Screen Score: 0 SCORE Physical Exam Vitals & Measurements T: 36.8 ???C(Tympanic) HR: 76(Peripheral) RR: 18 BP: 132/86 SpO2: 99% HT: 61 in HT: 154 cm WT: 140.434 lb WT: 63.7 kg BMI: 26.86 General: alert, no acute distress ENMT: oral mucosa moist, left eye with allergic shiner Cardiovascular: Regular rate and rhythm, normal peripheral perfusion Respiratory: Lungs clear to auscultation, respirations non labored Extremities: no deformity, no trauma, legs appear enlarged per the patient, no edema noted. Neurological: oriented x 4, level of consciousness appropriate for age, CN II-XII intact, motor strength equal & normal bilaterally, speech normal Abdomen: Soft, Non-tender, Non-distended, + Bowel sounds Assessment/Plan 1. 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 Ordered: [facility] External Ambulatory Referral 2. CHF (congestive heart failure) (I50.9: Heart failure, unspecified) The patient presents with significant bilateral leg swelling, raising suspicion for fluid retention. Continual monitoring with the existing diuretic therapy, with no further pharmaceuticals known to contribute to this symptom. Close observation and possible diuretic adjustment mentioned. Ordered: [facility] External Ambulatory Referral 3. DM type 2 causing vascular disease (E11.59: Type 2 diabetes mellitus with other circulatory complications) For the allergic shiner, suspected cat or pollen exposure was disc (more content not included)... Normal [facility] Comment on above: Result Comment: Elec tronically Signed By: Mervin SHANNON, Francisco Terrell\.br\Date and Time Signed: 07/01/24 09:53 EDT Urine Cytology ([facility])on 03-21-2024 Microscopic exam Cytology (U) [Interp] Diagnosis Info Invalid Interpretation Code [facility] Comment on above: Result Comment: A:Ur ine,Urine:Cystoscopy Interpretation - A few clusters of urothelial cells with mild atypia, low grade papillary urothelial neoplasm can not be excluded. Clinical correlation is indicated. Adequate cellularity for evaluation. CPT 85705 MicroScopic Description - Adequacy - Gross Description Site ID:A color Yellow fixative Alcohol Specimen designated Urine received in alcohol preservative and labeled with the patient???s name, consists of 100ml clear yellow fluid. Electronically signed by : on: 03/21/2024 12:31:11 Performed By: #### 1 [id number] #### [facility] [address] [place] [address] CT Urogramon 03-20-2024 CT Urogram Exam Date/Time: 03/18/2024 08:39 EST Reason for Exam: R31.29;Hematuria Report IMPRESSION: NO ACUTE FINDINGS. CT OF THE ABDOMEN AND PELVIS WITH AND WITHOUT INTRAVENOUS CONTRAST MEDIUM. HISTORY: HEMATURIA FOR YEARS. REMOTE HISTORY RENAL CALCULI. TECHNICAL FACTORS: CT urogram of the abdomen and pelvis were obtained and formatted as 2.5 mm contiguous axial images from the domes of the diaphragm to the symphysis pubis. Imaging obtained with and without intravenous contrast medium. Delayed images also obtained. Sagittal and coronal reconstructions were acquired during postprocessing. Oral contrast medium: None. Intravenous contrast medium: Isovue-300, 100 mL. Comparison: None. Findings: Lower chest: Cardiac size normal. No pericardial effusion. No coronary artery calcification. Lung bases are clear. Liver: Normal in size, shape, and attenuation. Bile Ducts: Normal in caliber. Gallbladder: Surgically absent. Pancreas: Normal without masses, cysts, ductal dilatation or calcification. Spleen: Normal in size without masses or calcifications. No splenules. Kidneys: Normal in size and enhancement. 1.7 cm cortical cyst upper pole left kidney. No hydronephrosis, masses, or stones. Adrenals: Normal. Small bowel: Normal in caliber. Appendix: Normal. Colon: Normal in caliber. Report Peritoneum: No ascites, free air, or fluid collections. Vessels: Aorta normal in course and caliber. Portal vein, splenic vein, superior mesenteric vein are patent. Lymph nodes: Retroperitoneal: No enlarged retroperitoneal lymph nodes. Mesenteric: No enlarged mesenteric lymph nodes. Pelvic: No enlarged pelvic lymph nodes. Ureters: Normal in course and caliber. No calcifications. Bladder: No wall thickening. Reproductive organs: No pelvic masses. Abdominal Wall: No hernia identified. No diastasis of rectus musculature. No edema or masses. Bones: No bone lesions. Diffuse disc space narrowing L5-S1. No post operative changes. All CT scans at this facility use dose modulation, iterative reconstruction, and/or weight based dosing when appropriate to reduce radiation dose to as low as reasonably achievable. Ordering Provider: Maris Scott FINAL REPORT Dictated: 03/20/2024 12:43 pm Gen Babb MD Signed (Electronic Signature): 03/20/2024 12:43 pm Signed by: Gen Babb MD Transcribed by: NELIDA Technologist: RRB Technical Comments GFR (mL/min/1/73m2) >60 Contrast: Isovue 300 Contrast amount in ml's: 100 Rectal Contrast Given? No [facility] CHEMISTRYOrdered By: SYSTEM SYSTEM on 03-18-2024 Creatinine [Mass/Vol] 0.8 mg/dL Normal 0.5 - 1.3 mg/dL Remisol Chem eGFR 79 mL/min/1.73 m2 Normal >=59mL/min /1 .73 m2 Remisol Chem Creatinineon 03-18-2024 Creatinine [Mass/Vol] 0.8 mg/dL Normal 0.5-1.3 [facility] Comment on above: Performed By: #### 2 [id number] #### [facility] [address] [place] [address] eGFRon 03-18-2024 eGFR 79 mL/min/1.73 m2 Normal >=59 [facility] Comment on above: Performed By: #### 1 [id number] #### [facility] [address] [place] [address] Inpatient Patient Summaryon 03-17-2024 Inpatient Patient Summary Inpatient Patient Summary [address] [address] Clinical Summary Person Information Name: RAFI ROPER Age: 69 Years : 1955 Sex: Female PCP: Francisco Mckeon MD Marital Status: Race: White Ethnicity: Non- or Language: Chinese Visit Id: Visit Reason: MICROSCOPIC HEMATURIA Speciality: Acuity: Enc Type: Outpatient Med Service: Surgery Arrival: 03/17/2024 08:51:37 Discharge: Dispo Type: Address: [address] [place] [id number] Provider Notes: Diagnosis: Microscopic hematuria; Urethral caruncle; Vaginal atrophy Problems Active Bowel habit changes Fecal urgency History of cholecystectomy History of Clostridium difficile colitis Microscopic hematuria Ureteral stone Eustachian tube dysfunction COVID Acute URI GERD without esophagitis HTN (hypertension) Aorto-iliac atherosclerosis Long-term insulin use Hypertensive heart disease with CHF Hyperlipidemia, unspecified Type 2 diabetes mellitus with hyperlipidemia DM type 2 causing vascular disease Colon cancer screening Benign neoplasm of cerebral meninges Injury of left foot Diabetic neuropathy Total bilirubin, elevated BPPV (benign paroxysmal positional vertigo) CHF (congestive heart failure) Smoking Status: Functional Status: Sensory Deficits: History of Falls: Mobility Assistance Prior to Admission: ADLs: Current Level of Assistance for Self-Care/Mobility: Cognitive Status: Allergies Latex ([place]) Laboratory or Other Results This Visit (last charted value for your 03/17/2024 visit) No Laboratory or Other Results This Visit Measurements: Height: Weight: Blood Pressure: Not Valued / Not Valued BMI: Procedures No Procedures Documented Immunizations No Immunizations Documented This Visit Final Med List: aspirin (aspirin 81 mg Oral EC Tab) 1 Tablets By Mouth every day. atorvastatin (atorvastatin 80 mg Tab) 1 Tablets By Mouth every day. Refills: 3. cholestyramine cholestyramine (Questran 4 g/9 g oral powder) 1 Packets By Mouth 2 times a day. Refills: 0. estradiol topical (Estrace 0.1 mg/g Cream) Apply pea sized amount to urethra/vagina 3x a week for 1 month, then 2x a week afterwards. Refills: 2. ezetimibe (Zetia 10 mg Tab) 1 Tablets By Mouth every day. Refills: 1. fluticasone nasal (Flonase 0.05 mg/inh Romney) 2 Sprays Nasal Inhalation every day. each nostril. Refills: 0. fluticasone nasal (fluticasone Nasal 0.05 mg/inh Comfort) USE 2 SPRAYS IN EACH NOSTRIL ONCE A DAY. Refills: 1. gabapentin (gabapentin 300 mg Cap) 1 Capsules By Mouth once a day (at bedtime). Refills: 3. hydrochlorothiazide (hydrochlorothiazide 12.5 mg Cap) 1 Capsules By Mouth every day. Refills: 3. insulin aspart (NovoLOG FlexPen 100 units/mL injectable solution) check blood sugars AC and Hs and cover 150-200 2u, 201-250 4u, 251-300 6u, 301-350 8u, 351-400 10u and 1unit per 15 carbs. insulin glargine (Lantus Solostar Pen 100 units/mL subcutaneous solution) INJECT 15 UNITS SUBCUTANEOUSLY IN THE MORNING AND 17 UNITS IN THE EVENING. Refills: 1. levothyroxine (levothyroxine 50 mcg (0.05 mg) Tab) 1 Tablets By Mouth every day. Refills: 3. losartan (losartan 50 mg Tab) 1 Tablets By Mouth 2 times a day. Refills: 1. magnesium oxide (magnesium oxide 400 mg Tab) TAKE 1 TABLET BY MOUTH EVERY DAY. Refills: 3. metformin (metformin 500 mg ER Tab) 1 Tablets By Mouth every day. Refills: 3. metoprolol (metoprolol 100 mg ER Tab) 1 Tablets By Mouth every day. Refills: 6. Misc Prescription (Freestyle [place] Flash Glucose Monitoring 14 Day System (Sensor)) Freestyle [place]h 2 Flash Glucose Monitoring 14 Day System (Sensor). Replace sensor every 14 days.. Refills: 11. Misc Prescription (Misc DME Prescription) BD ultra fine mini pen needles 31G X 3/16 Use 6 times a day to inject insulin Dx E10.8. Misc Prescription (Pen Needle 31G x 6mm) Pen Needle 31G x 6mm. Pt needs 5 boxes of 3 months supply.. Refills: 1. Care Team Members: Attending Physician: Maris Scott MD Consulting Physician: Referring Physician: Maris Scott MD Follow up: With: Address: When: Maris Scott Comments: Call for any problems. Type Location Start Finish State Open [facility] Jose Martin 07/01/2024 8:30 AM 07/01/2024 8:45 AM Confirmed Patient Education Information: EU - Cystoscopy Discharge Instructions (CUSTOM) [place] Main OR Intraoperative Recor don 03-17-2024 Main OR Intraoperative Record Main OR Intraoperative Record IntraOp Document Type FTURO Summary Primary Physician: Maris Scott MD Finalized Date/Time: 03/17/24 09:58:22 Pt. Name: RAFI ROPER/Sex: 1955 Female Med Rec #: [id number] Physician: Maris Scott MD Financial #: [id number] Pt. Type: O Room/Bed: / Admit/Disch: 03/17/24 08:51:37 - Institution: Case Times FTURO Entry 1 Patient Times In Room 03/17/24 09:48:00 Out Room 03/17/24 09:58:00 Procedure Times Start 03/17/24 09:52:00 Stop 03/17/24 09:55:00 Anesthesia Times Last Modified By: Krys Singh 03/17/24 09:58:10 Case Attendance FTURO Entry 1 Entry 2 Entry 3 Case Attendee Maris Scott MD, Kelsie E Troike, Kendall R Role Performed Surgeon - Primary Family [employer] F[employer] Teacher - Primary Scrub - Primary Time In 03/17/24 09:48:00 03/17/24 09:48:00 03/17/24 09:48:00 Time Out 03/17/24 09:58:00 03/17/24 09:58:00 03/17/24 09:58:00 Procedure CYSTOSCOPY LOCAL(.) CYSTOSCOPY LOCAL(.) CYSTOSCOPY LOCAL(.) Comments Last Modified By: Krys Singh Kelsie E Burgderfer, Kelsie E 03/17/24 09:58:11 03/17/24 09:58:11 03/17/24 09:58:11 Surgical Procedures FTURO Entry 1 Procedure Description Procedure CYSTOSCOPY LOCAL Modifiers . Surgeon Description CYSTO WITH URINE CYTOLOGY Primary Procedure Yes Primary Surgeon Tyler SHANNON, Maris Tony Start 03/17/24 09:52:00 Stop 03/17/24 09:55:00 Anesthesia Type Local Surgical Service Urology Wound Class 2 - Clean-Contaminated Last Modified By: Krys Singh 03/17/24 09:55:41 General Case Data FTURO Pre-Care Text: Classifies surgical wound, implements aseptic technique, initiates traffic control Entry 1 Case Information OR URO 1 FT Case Level None Wound Class 2 - Clean-Contaminated Specialty Urology Preop Diagnosis MICROSCOPIC HEMATURIA Postop Same As Preop Yes Postop Diagnosis MICROSCOPIC HEMATURIA Outcomes Met? Yes Last Modified By: Krys Singh 03/17/24 09:45:10 Post-Care Text: The patient is free from signs and symptoms of infection EU IntraOp - FTURO Pre-Care Text: Implements protective measures prior to operative or invasive procedure, confirms identity before the operative or invasive procedure, verifies operative procedure, surgical site, and laterality Entry 1 EU Perioperative Protocols Procedure(s) CYSTOSCOPY LOCAL(.) Patient Identity Birthday, ID Band Verified (select at Check, Patient least 2): Participation Consents / H and P H&P, Surgery/Procedure Operative Site N/A Verified Consent Marking Verified Surgical Site Yes Laterality Verified n/a Verified Procedure Verified Yes Correct Patient Yes Position Verified Availability Equipment, Medication Time Out Maris Scott MD, Verified (If Participants Krys Singh, Applicable) Cristobal Tran Time Out Complete 03/17/24 09:50:00 Allergies Reviewed? Yes Allergies Reviewed Self/Patient With Body Position Frog Legged Prep Area VAGINA Prep Agents Hibiclens Skin. Condition Intact, Cary, Warm, & Description N/A Dry Additional Other (See Comment) Specimens Comment URINE CYTOLOGY Specimens Collected Vitals - EU Blood Pressure 134/94 Pulse 82 bpm Respirations 18 br/min SPO2 96 % EBL 0 I&O - EU Total Intake 0 mL Total Output 0 mL Outcomes Met? Yes Last Modified By: Krys Singh 03/17/24 09:51:04 Post-Care Text: The patient is free from signs and symptoms of injury caused by extraneous objects Sign Out FTURO Entry 1 Before Patient Leaves OR Nurse verbally Yes Nurse verbally n/a confirms with the confirms with the team the name of team that the procedure(s) instrument, sponge, recorded and needle counts are correct (or N/A) Nurse verbally Yes Nurse verbally Yes confirms with the confirms with the team how the team whether there specimen is labeled are any equipment (including patient problems to be name), if applicable addressed Sign Out Complete 03/17/24 09:55:00 Last Modified By: Krys Singh 03/17/24 09:55:38 Case Comments Finalized By: Krys Singh Document Signatures Signed By: Krys Singh 03/17/24 09:58 Krys Singh 03/17/24 09:58 Krys Singh 03/17/24 09:58 [place] Main OR Preoperative Recordo n 03-17-2024 Main OR Preoperative Record Main OR Preoperative Record Holding Area Document Type FTURO Summary Primary Physician: Maris Scott MD Finalized Date/Time: 03/17/24 09:46:34 Pt. Name: RAFI ROPER/Sex: 1955 Female Med Rec #: [id number] Physician: Maris Scott MD Financial #: [id number] Pt. Type: O Room/Bed: / Admit/Disch: 03/17/24 08:51:37 - Institution: Case Times Holding FTURO Pre-Care Text: Verifies consent for planned procedure, identifies individual values and wishes concerning care, includes family members in perioperative teaching Secures patient's records' belongings, and valuables, maintains patient's dignity and privacy, and maintains patient confidentiality Entry 1 In Holding 03/17/24 09:11:00 Outcomes Met? Yes Last Modified By: Marlene Davies LPN 03/17/24 09:15:49 Post-Care Text: The patient participates in decisions affecting his or her perioperative plan of care The patient's right to privacy is maintained Surgery Checklist FTURO Entry 1 Patient Birthday, ID Band Procedure Surgical Consent, With Identification: Check, Patient Verification: Patient Participation NPO after Midnight: n/a Limitations: up ad lindsay Complaints of Pain: No Skin Integrity Intact, Cary, Warm, & Dry Vitals - EU Blood Pressure 134/94 Pulse 82 bpm Respirations 18 br/min SPO2 96 % Additional BEATRICE RN Reviewed Yes Specimens Collected Last Modified By: Krys Singh 03/17/24 09:45:41 Finalized By: Krys Singh Document Signatures Signed By: Krys Singh 03/17/24 09:45 Krys Singh 03/17/24 09:45 Ralph Singhsijanie Lima 03/17/24 09:46 Ralph Singhsijanie Lima 03/17/24 09:45 Ralph Singhsijanie Lima 03/17/24 09:46 Ralph Singhsijanie Lima 03/17/24 09:46 Ralph Singhsijanie Lima 03/17/24 09:45 Krys Singh 03/17/24 09:46 Krys Singh 03/17/24 09:46 [facility] Operative Reporton 4 Operative Report Operative Report Patient: RAFI ROPER Age: 69 years Sex: Female : 1955 Associated Diagnoses: None Author: Maris Scott MD Procedure Operative Information Details: Date/ Time: 03/17/2024 09:59:00. Pre-Op Dx: Microscopic hematuria ([id number] R31.29, Discharge, Medical). Post-Op Dx: Same. Anesthesia Type: Local. Procedure: Local Cystoscopy. Complications: None. Risks/Benefits/Informe d Consent: Surgical risks, benefits, details of the procedure have been explained to the patient, Full informed consent has been obtained. Intraoperative Information Prepped: Patient is brought back to the endoscopy suite, Patient is placed in supine position (Frogleg), Patient prepped in the usual fashion with Betadine solution (Hibiclens), 2% Xylocaine Jelly is placed per Urethra, After waiting several minutes the Cystoscope is introduced. The Urethra is: Normal, Small urethral caruncle. The Bladder is: Normal, Trabeculated None (0), No bladder tumors, lesions, stones or foreign bodies. Mild inflammatory polyps at bladder neck . The ureteral orifices: Show efflux of clear urine. Specimens Removed: Bladder wash sent for Cytology test. Devices Implanted: None. Removal: Cystoscope is removed, The patient tolerated it well. Vaginal examination: Vaginal mucosa: There is severe vaginal atrophy The urethra is patent, orthotopic. There are no masses or lesions. There is no urethral hypermobility and DARON is not seen. She is able to correctly identify her pelvic muscles. No significant anterior, apical or posterior prolapse. Non-tender pelvic floor muscles . Postoperative Information Discharge: Follow up arranged, No evidence of malignancy. Follow up urine cytology. If neg, f/u prn See separate clinic note regarding urethral caruncle/vaginal atrophy. Estrace cream started . Normal [facility] Comment on above: Result Comment: Elec tronically Signed By: Maris Scott MD\.br\Date and Time Signed: 03/17/24 10:01 EST Outpatient Surgery Discharge Instructionon 03-17-2024 Outpatient Surgery Discharge Instruction Outpatient Surgery Discharge Instruction [place] [id number] Patient Discharge Instructions PERSON INFORMATION Name: RAFI ROPER Date of : 1955 Current Date: 03/17/2024 09:58:44 PHYSICIANS Admitting Physician: Maris Scott MD Comment: Discharge Diagnosis: Microscopic hematuria; Urethral caruncle; Vaginal atrophy RAFI ROPER has been given the following list of follow-up instructions, prescriptions, and patient education materials: IF UNABLE TO CONTACT YOUR PHYSICIAN AND YOU FEEL IT IS AN EMERGENCY, GO TO THE NEAREST EMERGENCY ROOM OR CALL 911 Follow up: With: Address: When: Maris Scott Comments: Call for any problems. Type Location Start [facility] 07/01/2024 8:30 AM 07/01/2024 8:45 AM Confirmed Comment: PATIENT EDUCATION INFORMATION Instructions: Cystoscopy ??? Voiding after the procedure: there may be some pain, burning, urgency, frequency and blood tinged urine following the procedure. These symptoms usually resolve within 2-5 days. Drink the amount of fluid it takes to keep the urine pink to yellow or clear in color. Drinking enough water and fluids will help to ease any discomfort after your procedure. ??? If you are having problems that seem out of the ordinary, please call. ??? If unable to contact your physician and you feel it is an emergency, go to the nearest emergency room or call 911 ??? Diet ??? you may resume your normal diet. ??? Activity ??? you may resume your normal activities ??? Call if you have a fever over 100 degrees. IMIHIR NANCY J, have received the attached patient education materials/instructions and have verbalized understanding: May we do a follow up call? Yes No I was present when discharge instructions were given Patient Signature Date Clinican/Nurse Signature ___ Date You may receive a survey from [employer] asking you to rate your care experience. Your feedback is important and will help us understand what we do well and how we can improve the quality of care we provide to you, your loved ones and our community. It???s an honor to serve you. Thank you for choosing [facility] Urine Cytology ([facility])on Method of Extraction Cystoscopy Normal [facility] Comment on above: Performed By: #### 1 [id number] #### [facility] [address] [place] [address] Number of Jars 1 Invalid Interpretation Code [facility] Comment on above: Performed By: #### 1 [id number] #### [facility] [address] [place] [address] Specimen Urine Normal [facility] Comment on above: Performed By: #### 1 [id number] #### [facility] [address] [place] [address] Type of Service Technical Only Normal [facility] Comment on above: Performed By: #### 1 [id number] #### [facility] [address] [place] [address] Heart and Vascular Office/Cl inic Noteon 01-25-2024 Heart and Vascular Office/Clinic Note Heart and Vascular Office/Clinic Note Chief Complaint 6 month f/u - CAD History of Present Illness The patient is a very pleasant 68-year-old female who presents for a scheduled follow-up appointment. She does have a past medical history of diabetes mellitus type II with insulin requirements, hypertension, dyslipidemia, coronary artery disease with history of coronary artery bypass grafting surgery in 2020 at [facility]. At that time, she presented with non-ST elevation myocardial infarction and was found to have a complex disease of the circumflex artery, moderate to severe disease of the mid LAD, diagonal artery. Attempt at revascularization of circumflex artery was unsuccessful. Right coronary artery was nonobstructive. She had normal left ventricular ejection fraction at the index presentation. Details of coronary artery bypass graft surgery are unknown. She presents totally asymptomatic from the cardiovascular perspective. Specifically, reports no chest pain, shortness of breath, dizziness or lightheadedness, palpitations, syncope or presyncope. She states compliance with current treatment plan. Denies any side effects. LDL is at goal. She is not taking dapagliflozin, due to high cost. Review of Systems ROS - Provider Constitutional: no fever, no chills, no fatigue Skin:no rash, no lesions ENMT: no ear pain, no sore throat, no congestion. Respiratory: no shortness of breath, no cough, no wheezing. Cardiovascular: no chest pain, no palpitations, no edema. Gastrointestinal: no nausea, no vomiting, no diarrhea, no GI bleeding. Genitourinary: no dysuria, no frequencyno hematuria Musculoskeletal: no back pain, no trauma. Neurologic: no headache, no dizziness, no numbness, no weakness. Psychiatric: no sleeping problems, no irritability, no mood swings/depression. Heme/Lymph: no bleeding tendency, no bruising tendency, no petechiae, Allergy/Immuno logic: no seasonal allergies, no food allergies, no recurrent infections Physical Exam Vitals & Measurements HR: 68(Peripheral) RR: 16 BP: 132/82 SpO2: 98% HT: 61 in HT: 154 cm WT: 66.4 kg WT: 146.08 lb BMI: 28 General: alert, no acute distress Neck: Supple, noJVD nocarotid bruit Cardiovascular: regular rate and rhythm, no murmur normal peripheral perfusion Respiratory: Lungs CTAB, respirations non labored Extremities: no edema left lower extremity. no edema right lower extremity Neurological: oriented x 4, LOC appropriate for age, speech normal Skin: Warm, dry, intact- no rash or concerning lesions Assessment/Plan 1. CAD of autologous bypass graft (I25.810: Atherosclerosis of coronary artery bypass graft(s) without angina pectoris) The patient is doing well. She reports no angina or anginal-like symptoms. Will submit a request to [facility] regarding prior cardiac workup, apparently it was not submitted after her previous encounter, for documentation purposes. 2. HTN (hypertension) (I10: Essential (primary) hypertension) Blood pressure appears to be slightly elevated. I am going to start HCTZ 12.5 mg daily. 3. Hyperlipidemia, unspecified (E78.5: Hyperlipidemia, unspecified) LDL is at goal. Follow-up No qualifying data available 6 months Problem List/Past Medical History Ongoing Acute URI Aorto-iliac atherosclerosis Benign neoplasm of cerebral meninges Bowel habit changes BPPV (benign paroxysmal positional vertigo) CHF (congestive heart failure) Colon cancer screening COVID Diabetic neuropathy DM type 2 causing vascular disease Eustachian tube dysfunction Fecal urgency GERD without esophagitis History of cholecystectomy History of Clostridium difficile colitis HTN (hypertension) Hyperlipidemia, unspecified Hypertensive heart disease with CHF Injury of left foot Long-term insulin use Microscopic hematuria Total bilirubin, elevated Type 2 diabetes mellitus with hyperlipidemia Ureteral stone Historical No qualifying data Procedure/Surgical History Open heart surgery (2020), Cataract extraction and insertion of intraocular lens (07/23/2019), Cholecystectomy, Colonoscopy, Tooth extraction, Tubal ligation. Medications aspirin 81 mg Oral EC Tab, 81 mg= 1 tab(s), Oral, Daily atorvastatin 80 mg Tab, 80 mg= 1 tab(s), Oral, Daily, 3 refills cholestyramine Flonase 0.05 mg/inh [place], 2 spray(s), Nasal, Daily fluticasone Nasal 0.05 mg/inh Comfort, See Instructions [employer] [place] Flash Glucose Monitoring 14 Day System (Sensor), See Instructions, 11 refills gabapentin 300 mg Cap, 300 mg= 1 cap(s), Oral, Once a day (at bedtime), 3 refills Lantus Solostar Pen 100 units/mL subcutaneous solution, See Instructions, 3 refills levothyroxine 50 mcg (0.05 mg) Tab, 50 mcg= 1 tab(s), Oral, Daily, 3 refills losartan 50 mg Tab, 50 mg= 1 tab(s), Oral, BID, 1 refills magnesium oxide 400 mg Tab, See Instructions metformin 500 mg ER Tab, 500 mg= 1 tab(s), Oral, Daily, 3 refills metoprolol 100 mg ER Tab, 100 mg= (more content not included)... Normal [facility] Comment on above: Result Comment: Elec tronically Signed By: Janes Rivera MD\.br\Date and Time Signed: 01/25/24 14:11 EST Ambulatory Visit Summaryon 1 03-25-2023 Ambulatory Visit Summary Ambulatory Visit Summary RAFI ROPER :1955 Visit Date:01/24/2024 Ambulatory Visit Instructions Your Diagnosis Family history of colon cancer History of Clostridium difficile colitis History of cholecystectomy Fecal urgency Bowel habit changes Your Care Team Attending Physician - Radha SHANNON, Raman Cochran Primary Care Physician - Francisco Mckeon MD This Is Your Medications List cholestyramine (Questran 4 g/9 g oral powder) Contact prescribing physician if questions or concerns Misc Prescription ([email or web address] Lokesh Flash Glucose Monitoring 14 Day System (Sensor)) Misc Prescription (Misc DME Prescription) Misc Prescription (Pen Needle 31G x 6mm) aspirin (aspirin 81 mg Oral EC Tab) atorvastatin (atorvastatin 80 mg Tab) dapagliflozin (dapagliflozin 10 mg oral tablet) ezetimibe (Zetia 10 mg Tab) fluticasone nasal (Flonase 0.05 mg/inh Romney) fluticasone nasal (fluticasone Nasal 0.05 mg/inh Comfort) gabapentin (gabapentin 300 mg Cap) insulin aspart (NovoLOG FlexPen 100 units/mL injectable solution) insulin glargine (Lantus Solostar Pen 100 units/mL subcutaneous solution) levothyroxine (levothyroxine 50 mcg (0.05 mg) Tab) losartan (losartan 50 mg Tab) magnesium oxide (magnesium oxide 400 mg Tab) metformin (metformin 500 mg ER Tab) metoprolol (metoprolol 100 mg ER Tab) Procedures Performed Open heart surgery (2020), Cataract extraction and insertion of intraocular lens (07/23/2019), Cholecystectomy, Colonoscopy, Tooth extraction, Tubal ligation. Discharge Vitals Heart Rate (Peripheral) 72 Respiratory Rate 16 Blood Pressure 187/91 Height 65 in Height 164 cm Weight 145.2 lb Weight 66 kg BMI 24.54 What to do next Scheduled Follow-Up Appointments Sunday 1:45 PM EST With: Janes Rivera MD Where: [facility] Sunday 11:00 AM EST With: Where: [facility] Sunday 9:15 AM EST With: Where: [facility] Sunday 8:30 AM EDT With: Francisco Mckeon MD Where: [place] [phone]- Medications What How Much When Why Instructions New cholestyramine (Questran 4 g/ 9 g oral powder) 1 Packets By Mouth 2 times a day Family history of colon cancer Pickup at [facility]/pharmacy #[id number] Unchanged aspirin (aspirin 81 mg Oral EC Tab) 1 Tablets By Mouth Every day Contact prescribing physician if questions or concerns Unchanged atorvastatin (atorvastatin 80 mg Tab) 1 Tablets By Mouth Every day Contact prescribing physician if questions or concerns Unchanged dapagliflozin (dapagliflozin 10 mg oral tablet) 1 Tablets By Mouth Every day Contact prescribing physician if questions or concerns Unchanged ezetimibe (Zetia 10 mg Tab) 1 Tablets By Mouth Every day Contact prescribing physician if questions or concerns Unchanged fluticasone nasal (Flonase 0.05 mg/ inh Romney) 2 Sprays Nasal Inhalation Every day each nostril Contact prescribing physician if questions or concerns Unchanged fluticasone nasal (fluticasone Nasal 0.05 mg/ inh Comfort) See instructions USE 2 SPRAYS IN EACH NOSTRIL ONCE A DAY Contact prescribing physician if questions or concerns Unchanged gabapentin (gabapentin 300 mg Cap) 1 Capsules By Mouth Once a day (at bedtime) BMI 26.0-26.9,adult Non-smoker Diabetic neuropathy Contact prescribing physician if questions or concerns Unchanged insulin aspart (NovoLOG FlexPen 100 units/ mL injectable solution) See instructions check blood sugars AC and Hs and cover 150-200 2u, 201-250 4u, 251-300 6u, 301-350 8u, 351-400 10u and 1unit per 15 carbs Contact prescribing physician if questions or concerns Unchanged insulin glargine (Lantus Solostar Pen 100 units/ mL subcutaneous solution) See instructions 15 u subq in the morning and 17 units sub q in the evening Contact prescribing physician if questions or concerns Unchanged levothyroxine (levothyroxine 50 mcg (0.05 mg) Tab) 1 Tablets By Mouth Every day Contact prescribing physician if questions or concerns Unchanged losartan (losartan 50 mg Tab) 1 Tablets By Mouth 2 times a day Contact prescribing physician if questions or concerns Unchanged magnesium oxide (magnesium oxide 400 mg Tab) See instructions TAKE 1 TABLET BY MOUTH EVERY DAY Contact prescribing physician if questions or concerns Unchanged metformin (metformin 500 mg ER Tab) 1 Tablets By Mouth Every day Contact prescribing physician if questions or concerns Unchanged metoprolol (metoprolol 100 mg ER Tab) 1 Tablets By Mouth Every day Contact prescribing physician if questions or concerns Unchanged Misc Prescription (Freestyle Lokesh Flash Glucose Monitoring 14 Day System (Sensor)) See instructions Type 2 diabetes mellitus Freestyle Lokesh 2 Flash Glucose Monitoring 14 Day System (Sensor). Replace sensor every 14 days. Contact prescrib (more content not included)... Normal [facility] Gastroenterology Office/Clin ic Noteon 01-24-2024 Gastroenterology Office/Clinic Note Gastroenterology Office/Clinic Note Chief Complaint 5 year colon recall HPI Staff This is a 68 year old female who presents today for a 5 year recall. for several years, she has urgency mainly daily - inbetween diarrhea and formed. states it is very long stool. Denies Blood Thinners. Denies GLP-1 Agonists. Family history of colon cancer- Maternal grandmother. Denies Dysphagia, abdominal pain, constipation, or bloody stools. Denies any previous EGD. Denies any recent imaging or labs Colonoscopy w/ Dr Hassan 08/21/18 Post Operative diagnosis: Normal colonoscopy Laboratory Results CBC CMP Basophil Absolute: 0 E9/L (07/29/23) A/G Ratio: 2 (07/29/23) Basophil Auto: 0.7 % (07/29/23) AGAP: 9 mEq/L (07/29/23) Eos Absolute: 0.2 E9/L (07/29/23) Albumin Lvl: 4.1 gm/dL (07/29/23) Eos Auto: 4.1 % (07/29/23) Alk Phos: 75 Int._Unit/L (07/29/23) Hct: 40.9 % (07/29/23) ALT: 46 Int._Unit/L (07/29/23) HGB: 14.1 gm/dL (07/29/23) AST: 28 Int._Unit/L (07/29/23) Lymph Absolute: 1.3 E9/L (07/29/23) Bili Total: 1.6 mg/dL High (07/29/23) Lymph Auto: 21.5 % (07/29/23) BUN: 21 mg/dL (07/29/23) MCH: 31.1 pg (07/29/23) BUN/Creat Ratio: 26 High (07/29/23) MCHC: 34.5 gm/dL (07/29/23) Calcium Lvl: 9.2 mg/dL (07/29/23) MCV: 90.1 fL (07/29/23) Chloride: 106 mmol/L (07/29/23) Hyde Absolute: 0.5 E9/L (07/29/23) CO2: 30 mmol/L (07/29/23) Hyde Auto: 9.1 % (07/29/23) Creatinine: 0.8 mg/dL (07/29/23) MPV: 8.1 fL (07/29/23) Globulin: 2.1 gm/dL (07/29/23) Neutro Absolute: 3.8 E9/L (07/29/23) Glucose Lvl: 153 mg/dL (07/29/23) Neutro Auto: 64.6 % (07/29/23) Potassium Lvl: 3.7 mmol/L (07/29/23) Platelet: 168 E9/L (07/29/23) Sodium Lvl: 141 mmol/L (07/29/23) RBC: 4.5 E12/L (07/29/23) Total Protein: 6.2 gm/dL (07/29/23) RDW: 13.3 % (07/29/23) WBC: 5.9 E9/L (07/29/23) History of Present Illness I have reviewed HPI staff note, most recent labs and imaging, I agree with the above documentation with the following additions/exceptions : PT with maternal GM with colon cancer never had polyps before pt goes very frequently pt with urgency not solid or loose but long and thin stool pt to strain no pelvic floor surgery gallbladder surgery 10-15 years ago always with incomplete evacuation weight is creeping up Review of Systems PHQ Score Initial Depression Screen Score: 0 SCORE All systems reviewed, negative except as mentioned above Physical Exam Vitals & Measurements HR: 72(Peripheral) RR: 16 BP: 187/91 HT: 65 in HT: 164 cm WT: 66 kg WT: 145.2 lb BMI: 24.54 General: alert, no acute distress HEENT: atraumatic normocephalic Cardiovascular: regular rate and rhythm, normal peripheral perfusion Respiratory: Lungs CTA, respirations non labored Extremities: no deformity, no trauma Abdomen: Benign, soft, nontender nondistended Assessment/Plan 1. Family history of colon cancer (Z80.0: Family history of malignant neoplasm of digestive organs) Ordered: cholestyramine, = 1 packet(s), Oral, BID, # 60 EA, Refills(s) 0, Pharmacy: [facility]/pharmacy #[id number], 164, cm, 01/24/24 8:54:00 EST, Height/Length Dosing, 66, kg, 01/24/24 8:54:00 EST, Weight Dosing 2. History of Clostridium difficile colitis (Z86.19: Personal history of other infectious and parasitic diseases) 3. History of cholecystectomy (Z90.49: Acquired absence of other specified parts of digestive tract) 4. Fecal urgency (R15.2: Fecal urgency) 5. Bowel habit changes (R19.4: Change in bowel habit) Advised to get squatty potty and massage the colon Advised to consume prunes and kiwi fluids Will prescribe Questran 4 g twice daily and advised to start with once a day and titrate up if tolerated since symptoms started right after cholecystectomy. Might benefit from anorectal manometry in the future Follow-up No qualifying data available Problem List/Past Medical History Ongoing Acute URI Aorto-iliac atherosclerosis Benign neoplasm of cerebral meninges Bowel habit changes BPPV (benign paroxysmal positional vertigo) CHF (congestive heart failure) Colon cancer screening COVID Diabetic neuropathy DM type 2 causing vascular disease Eustachian tube dysfunction Fecal urgency GERD without esophagitis History of cholecystectomy History of Clostridium difficile colitis HTN (hypertension) Hyperlipidemia, unspecified Hypertensive heart disease with CHF Injury of left foot Long-term insulin use Microscopic hematuria Total bilirubin, elevated Type 2 diabetes mellitus with hyperlipidemia Ureteral stone Historical No qualifying data Procedure/Surgical History Open heart surgery (2020), Cataract extraction and insertion of intraocular lens (07/23/2019), Cholecystectomy, Colonoscopy, Tooth extraction, Tubal ligation. Medications aspirin 81 mg Oral EC Tab, 81 mg= 1 tab(s), Oral, Daily atorvastatin 80 mg Tab, 80 mg= 1 tab(s), Oral, Daily, 3 refills dapagliflozin 10 mg oral table (more content not included)... Normal [facility] Comment on above: Result Comment: Elec tronically Signed By: Radha SHANNON, Raman Ross.br\Date and Time Signed: 01/24/24 09:31 EST C Urineon 01-19-2024 Bacteria identified Cx Nom (U) Microbiology PROCEDURE: Urine Culture [R1] SOURCE: U CleanCatch BODY SITE: COLLECTED DATE/TIME: 01/17/2024 13:14 EDT RECEIVED DATE/TIME: 01/17/2024 19:18 EDT START DATE/TIME: 01/17/2024 19:18 EDT FREE TEXT SOURCE: KAYLA GEORGE PA-C, PA-C, KAYLA Lima FINAL REPORTS Final Report [] Verified Date/Time: 01/19/2024 10:12 EDT No growth at 2 days. Performing Locations R1: This test was performed at: [facility], [address] [place] [address], [id number] , [place], [place] Comment on above: Performed By: #### 2 [id number] #### [facility] [address] [place] [address] PVR Lower EXT Complete Bi laton 01-18-2024 [place] PVR Lower EXT Complete Bilat Exam Date/Time: 01/14/2024 10:02 EDT Reason for Exam: I10;Leg pain Report IMPRESSION: NO EVIDENCE OF SIGNIFICANT ARTERIAL STENOTIC DISEASE INVOLVING THE RIGHT AND LEFT LEGS. CLINICAL HISTORY: Leg pain, I10. COMMENT: On the right, the brachial systolic pressure is 223 , the high thigh pressure is 251 , the low thigh pressure is 248 , the calf pressure is 240 , the posterior tibial ankle pressure is 231 , the dorsalis pedis ankle pressure is 230 , and the digit pressure is 180 . The high thigh-brachial index is 1.12, with normal 1.0 or greater. The ankle-brachial index at the posterior tibial artery is 1.03 and at the dorsalis pedis is 1.03, with normal 1.0 or greater. The toe-brachial index is 0.80, with normal 0.7 or greater. The plethysmography waveforms are essentially normal. On the left, the brachial systolic pressure is 224 , the high thigh pressure is 235 , the low thigh pressure is 242 , the calf pressure is 246 , the posterior tibial ankle pressure is 234 , the dorsalis pedis ankle pressure is 210 , and the digit pressure is 201 . The high thigh-brachial index is 1.05, with normal 1.0 or greater. The ankle-brachial index at the posterior tibial artery is 1.04 and at the dorsalis pedis is 0.94, with normal 1.0 or greater. The toe-brachial index is 0.90, with normal 0.7 or greater. The plethysmography waveforms are essentially normal. Ordering Provider: Francisco Mckeon FINAL REPORT Dictated: 01/18/2024 11:14 am Michael Jeff MD Signed (Electronic Signature): 01/18/2024 11:14 am Signed by: Michael Jeff MD Transcribed by: NELIDA Technologist: MAICO Hutson [facility] MM screening mammo BI w/CADo n 01-17-2024 MM screening mammo BI w/CAD [facility] [place] [address] Mammography Report Signed Patient: Rafi Roper MR#: [id number] : 1955 Acct:[id number] Age/Sex: 68 / F ADM Date: 01/17/24 Loc: [place] Room: Type: [facility] Attending Dr: Referral Self Copies to: SELF,REFERRAL Francisco Mckeon MD Ordering Provider: SELF,REFERRAL Date of Service: 01/17/24 MM/MM screening mammo BI w/CAD: SCREENING CLINICAL DATA: Screening for malignancy. BILATERAL SCREENING MAMMOGRAMS - FULL FIELD DIGITAL WITH TOMOSYNTHESIS AND CAD Tomosynthesis craniocaudal and mediolateral oblique views of both breasts were obtained using low- dose digital technique. Comparison is made to prior studies from January 05, 2020 through January 15, 2023. This examination was reviewed with the aid of CAD. There are scattered fibroglandular densities. Benign-appearing calcifications are visualized. A few more on the right since the prior. A right intramammary lymph node is present. There are no developing masses, typically malignant calcifications or architectural distortion. There has been no significant interval change. MM/MM screening mammo BI w/CAD IMPRESSION: NO MAMMOGRAPHIC EVIDENCE OF MALIGNANCY. ROUTINE FOLLOW-UP IS RECOMMENDED IN ONE YEAR. RESULT CODE: 2 Benign Findings(s) DENSITY CODE: 2 (approximately 25-50% glandular) FOLLOW UP: 1YR The false-negative rate of mammography is approximately 10-percent. Management of a palpable abnormality must be based on clinical grounds. Patient was entered into a reminder system with a target due date for the next mammogram. Impression dictated by: Whitney Soni M.D.01/17/2024 2:25 PM Dictation Location: [facility] Transcribed By: ANITA 01/17/24 142 Dictated By: Whitney Soni MD 01/17/241421 Signed By: 01/17/24 142 Normal [facility] URINALYSISOrdered By: SYSTEM SYSTEM on 01-17-2024 Bilirubin Ql (U) Negative Normal Negativemg/ d L [facility] UA Auto SS Clarity (U) Clear (01/17/24 1:14 PM) Normal Clear [facility] UA Auto SS Color (U) Light-Yellow 1 (01/17/24 1:14 PM) Normal Yellow [facility] UA Auto SS Comment on above: Interpretive Data: M icroscopic readings are only performed on those samples that meet specific criteria set forth by [facility]. Epithelial cells.squamous Auto (Urine sed) [#/Area] 0-2 graded/HPF Invalid Interpretation Code FT UA Auto SS Glucose Ql (U) Negative Normal Negativemg/d L [facility] UA Auto SS Hemoglobin Auto test strip (U) [Mass/Vol] 1+ mg/dL Invalid Interpretation Code Negativemg/d L [facility] UA Auto SS Ketones Auto test strip Ql (U) Negative Normal Negativemg/d L [facility] UA Auto SS Leukocyte esterase Auto test strip Ql (U) Negative Normal NegativeLeu/ uL [facility] UA Auto SS Mucus Auto Ql (U) Trace graded/LPF Normal Negati vegrad ed/LPF [facility] UA Auto SS Nitrite Auto test strip Ql (U) Negative Normal Negativemg/d L [facility] UA Auto SS pH (U) 6.5 *NA* (01/17/24 1:14 PM) Invalid Interpretation Code 5.0 - 9.0 [facility] UA Auto SS Protein Ql (U) Negative Normal Negativemg/d L [facility] UA Auto SS RBC Ql (U) 4-20 graded/HPF Invalid Interpretation Code 0-3graded/HP F [facility] UA Auto SS Specific gravity (U) [Rel density] 1.017 *NA* (01/17/24 1:14 PM) Invalid Interpretation Code 1.005 - 1.030 [facility] UA Auto SS Urobilinogen (U) [Mass/Vol] Negative Normal Negativemg/d L [facility] UA Auto SS WBC Auto (Urine sed) [#/Area] 0-5 graded/HPF Normal 0-5graded/HP F [facility] UA Auto SS URINALYSISOrdered By: Bernie Ramos on 01-17-2024 UA Spec Desc Clean Catch (01/17/24 1:14 PM) Normal [facility] UA Auto SS Urinalysis with Microon 12-19 Bilirubin Ql (U) Negative Normal Negative [facility] Comment on above: Performed By: #### 4 [id number] #### [facility] [address] [place] [address] Clarity (U) Clear Normal Clear [facility] Comment on above: Performed By: #### 4 [id number] #### [facility] [address] [place] [address] Color (U) Light-Yellow Normal Yellow [facility] Comment on above: Result Comment: Micr oscopic readings are only performed on those samples that meet specific criteria set forth by [facility]. Performed By: #### 4 [id number] #### [facility] [address] [place] [address] Epithelial cells.squamous Auto (Urine sed) [#/Area] 0-2 Invalid Interpretation Code [facility] Comment on above: Performed By: #### 4 [id number] #### [facility] [address] [place] [address] Glucose Ql (U) Negative Normal Negative [facility] Comment on above: Performed By: #### 4 [id number] #### [facility] [address] [place] [address] Hemoglobin Auto test strip (U) [Mass/Vol] 1+ mg/dL Abnormal Negative [facility] Comment on above: Performed By: #### 4 [id number] #### [facility] [address] [place] [address] Ketones Auto test strip Ql (U) Negative Normal Negative [facility] Comment on above: Performed By: #### 4 [id number] #### [facility] [address] [place] [address] Leukocyte esterase Auto test strip Ql (U) Negative Normal Negative [facility] Comment on above: Performed By: #### 4 [id number] #### [facility] [address] [place] [address] Mucus Auto Ql (U) Trace Normal Negative [facility] Comment on above: Performed By: #### 4 [id number] #### [facility] [address] [place] [address] Nitrite Auto test strip Ql (U) Negative Normal Negative [facility] Comment on above: Performed By: #### 4 [id number] #### [facility] [address] [place] [address] pH (U) 6.5 [pH] Invalid Interpretation Code 5.0-9.0 [facility] Comment on above: Performed By: #### 4 [id number] #### [facility] [address] [place] [address] Protein Ql (U) Negative Normal Negative [facility] Comment on above: Performed By: #### 4 [id number] #### [facility] [address] [place] [address] RBC Ql (U) 4-20 Abnormal 0-3 [facility] Comment on above: Performed By: #### 4 [id number] #### [facility] [address] [place] [address] Specific gravity (U) [Rel density] 1.017 Invalid Interpretation Code 1.005-1.030 [facility] Comment on above: Performed By: #### 4 [id number] #### [facility] [address] [place] [address] Urobilinogen (U) [Mass/Vol] Negative Normal Negative [facility] Comment on above: Performed By: #### 4 [id number] #### [facility] [address] [place] [address] WBC Auto (Urine sed) [#/Area] 0-5 Normal 0-5 [facility] Comment on above: Performed By: #### 4 [id number] #### [facility] [address] [place] [address] Type of Urine collection method Clean Catch Normal [facility] Comment on above: Performed By: #### 4 [id number] #### [facility] [address] [place] [address] Urology Office/Clinic Noteon 01-17-2024 Urology Office/Clinic Note Urology Office/Clinic Note Chief Complaint microhematuria HPI Staff Pt is a rereferral for microhematuria by Dr. Mckeon. Last seen by KMRosa Maria in office 11/02/21. Dx: ureteral stone Dysuria: denies Incomplete bladder emptying: denies Hematuria: denies Frequency: denies Urgency: denies Nocturia: 1x usually Stream: good steady no straining Leaking: denies Post void dripping: denies Wearing pads/ Depends: denies Urge incontinence: denies Stress incontinence: denies Incontinence without Sensory Awareness: denies Abdominal pain: denies Flank pain: denies Sexual complaints: denies History of Present Illness staff HPI reviewed and agree. Review of Systems PHQ Score Initial Depression Screen Score: 0 SCORE no fever, chills, malaise, myalgia. no rash/lesions. no chest pain, palpitations, or SOB. no abdominal pain, nausea, vomiting. no unilateral calf swelling, redness, pain Physical Exam Vitals & Measurements T: 37 ???C(Temporal Artery) HR: 72(Peripheral) RR: 18 BP: 129/74 HT: 65 in HT: 164 cm WT: 63.5 kg WT: 139.7 lb BMI: 23.61 General: nontoxic, NAD Mouth: moist mucosa Lungs: normal respiratory effort Cardio: regular rate, good distal perfusion Abdomen: nondistended, no suprapubic distention or tenderness, no CVA tenderness Neurologic: Grossly normal Skin: No rashes or suspicious lesions Assessment/Plan KML pt, last seen 10/2021. Re-referred by Dr. Mckeon for microscopic hematuria. Hgb A1c 01/01/24 - 6.3 Most recent renal function 07/29/23 - BUN 21, Cr 0.8, eGFR 79 1. 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 Neg UCx 01/01/24. 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 Mejia for microscopic hematuria. Negative. based on the above risk assessment the pt is considered HIGH risk - will order cysto and CTU.if micro+ and cx- -Pt to be called with next steps after micro results are finalized. If no significant microhematuria or contaminated specimen, her choice to f/u 1 yr and repeat urine or f/u PRN. Pt aware to call if ever has gross hematuria. 2. Ureteral stone (N20.1: Calculus of ureter) CT AP wo contrast 09/26/21 at [facility] - left obstructing 2mm UPJ/proximal ureter stone results in mild upstream left hydronephrosis and perirenal standing. Also shows left superior pole 2.4cm renal cyst, simple. KUB 09/26/21 [facility] - negative. Pt passed stone naturally. Mentions it was small in size, and black, and it was painless when she passed the stone. First stone event. Pt submitted the stone for analysis at Dr. Butler's office and was told it was ca ox. No recent imaging. Following stone prevention recommendations. Asymptomatic. Follow-up With When Contact Information MALIK HAMMOND, KAYLA Lima, URL [address] [place] [address] Additional Instructions: F/up pending micro UA results Patient Education Hematuria, Adult Documentation recorded by the jack Fry accurately reflects the services(s) I performed and decisions made by me. Authenticated by Kayla George PA-C on 01/17/2024 13:11:32. I, Salma Fry, personally scribed for Jenn George PA-C on 01/17/2024 13:05:04. . Problem List/Past Medical History Ongoing Acute URI Aorto-iliac atherosclerosis Benign neoplasm of cerebral meninges BPPV (benign paroxysmal positional vertigo) CHF (congestive heart failure) Colon cancer screening COVID Diabetic neuropathy DM type 2 causing vascular disease Eustachian tube dysfunction GERD without esophagitis HTN (hypertension) Hyperlipidemia, unspecified Hypertensive heart disease with CHF Injury of left foot Long-term insulin use Microscopic hematuria Total bilirubin, elevated Type 2 diabetes mellitus with hyperlipidemia Ureteral stone Historical No qualifying data Procedure/Surgical History Open heart surgery (2020), Cataract extraction and insertion of intraocular lens (07/23/2019), Cholecystectomy, Colonoscopy, Tooth extraction, Tubal ligation. Medications aspirin 81 mg Oral EC Tab, 81 mg= 1 tab(s), Oral, Daily atorvastatin 80 mg Tab, 80 mg= 1 tab(s), Oral, Daily, 3 refills dapagliflozin 10 mg oral tablet, 10 mg= 1 tab(s), Oral, Daily, 1 refills Flonase 0.05 mg/inh Romney, 2 spray(s), Nasal, Daily fluticasone Nasal 0.05 mg/inh Comfort, See Instructions Freestyle Lokesh Flash Glucose Monitoring 14 Day System (Sensor), See Instructions, 11 refills gabapentin 300 mg Cap, 300 mg= 1 cap(s), Oral, Once a day (at bedtime), 3 refills Lantus Solostar Pen 100 units/mL subcutaneous solution, See Instructions, 3 refills levothyroxin (more content not included)... Normal [facility] Comment on above: Result Comment: Elec tronically Signed By: MALIK HAMMOND, KAYLA Lima\.br\Date and Time Signed: 01/17/24 13:11 EDT\.br\Electronically Co-Signed By: Salma Fry\.elliot\Date and Time Co-Signed: 01/17/24 13:05 EDT C Urineon 01-03-2024 Bacteria identified Cx Nom (U) Microbiology PROCEDURE: Urine Culture [R1] SOURCE: U CleanCatch BODY SITE: COLLECTED DATE/TIME: 01/01/2024 09:40 EDT RECEIVED DATE/TIME: 01/01/2024 17:52 EDT START DATE/TIME: 01/01/2024 17:52 EDT FREE TEXT SOURCE: Mervin SHANNON, Francisco Mckeon MD, Francisco Terrell FINAL REPORTS Final Report [] Verified Date/Time: 01/03/2024 06:47 EDT 300 cfu/ml Mixed skin contaminants Performing Locations R1: This test was performed at: [facility], [address] [place] [address], [facility] , , [place] Comment on above: Performed By: #### [id number] #### [facility] [address] [place] [address] Ambulatory Visit Summaryon 1 Ambulatory Visit Summary Ambulatory Visit Summary RAFI ROPER :1955 Visit Date:01/01/2024 Ambulatory Visit Instructions Your Diagnosis HTN (hypertension) Peripheral vascular disease, unspecified Screening for colon cancer Hematuria, unspecified Type 2 diabetes mellitus with hyperlipidemia BMI 28.0-28.9,adult Overweight Nonsmoker Your Care Team Attending Physician - Francisco Mckeon MD Primary Care Physician - Francisco Mckeon MD This Is Your Medications List Misc Prescription (Pen Needle 31G x 6mm) dapagliflozin (dapagliflozin 10 mg oral tablet) losartan (losartan 50 mg Tab) Contact prescribing physician if questions or concerns Misc Prescription ([employer] Flash Glucose Monitoring 14 Day System (Sensor)) Misc Prescription (Misc DME Prescription) aspirin (aspirin 81 mg Oral EC Tab) atorvastatin (atorvastatin 80 mg Tab) ezetimibe (Zetia 10 mg Tab) fluticasone nasal (Flonase 0.05 mg/inh Romney) fluticasone nasal (fluticasone Nasal 0.05 mg/inh Comfort) gabapentin (gabapentin 300 mg Cap) insulin aspart (NovoLOG FlexPen 100 units/mL injectable solution) insulin glargine (Lantus Solostar Pen 100 units/mL subcutaneous solution) levothyroxine (levothyroxine 50 mcg (0.05 mg) Tab) magnesium oxide (magnesium oxide 400 mg Tab) metformin (metformin 500 mg ER Tab) metoprolol (metoprolol 100 mg ER Tab) [Image Removed: STOP]Stop taking these medications fluconazole (Diflucan 150 mg Tab) magnesium oxide (magnesium oxide 400 mg Tab) magnesium oxide (magnesium oxide 400 mg Tab) Procedures Performed Open heart surgery (2020), Cataract extraction and insertion of intraocular lens (07/23/2019), Cholecystectomy, Colonoscopy, Tooth extraction, Tubal ligation. Discharge Vitals Temperature (Oral) 36.6 ?C Heart Rate (Peripheral) 70 Respiratory Rate 16 Blood Pressure 120/72 Height 154 cm Height 61 in Weight 66.8 kg Weight 146.96 lb BMI 28.17 What to do next Scheduled Follow-Up Appointments Sunday 1:45 PM EST With: Miguel SHANNON, Janes Hubbard Where: [facility] Sunday 8:30 AM EDT With: Mervin SHANNON, Francisco Terrell Where: [facility] [place] [id number]- You Need to Complete the Following US PVR Lower EXT Complete Bilat, 01/01/24, Routine, Order for future visit, Transport Mode: Ambulatory, Reason: Leg pain, No, HTN (hypertension) Peripheral vascular disease, unspecified Screening for colon cancer Hematuria, unspecified Type 2 diabetes mellitus with hyperlipid... Medications What How Much When Why Instructions Changed [facility] Prescription (Pen Needle 31G x 6mm) See instructions Pen Needle 31G x 6mm. Pt needs 5 boxes of 3 months supply. Pickup at [facility]/pharmacy #[id number] Unchanged dapagliflozin (dapagliflozin 10 mg oral tablet) 1 Tablets By Mouth Every day Pickup at [facility]/pharmacy #[id number] Unchanged losartan (losartan 50 mg Tab) 1 Tablets By Mouth 2 times a day Pickup at [facility]/pharmacy #[id number] Unchanged aspirin (aspirin 81 mg Oral EC Tab) 1 Tablets By Mouth Every day Contact prescribing physician if questions or concerns Unchanged atorvastatin (atorvastatin 80 mg Tab) 1 Tablets By Mouth Every day Contact prescribing physician if questions or concerns Unchanged ezetimibe (Zetia 10 mg Tab) 1 Tablets By Mouth Every day Contact prescribing physician if questions or concerns Unchanged fluticasone nasal (Flonase 0.05 mg/ inh Romney) 2 Sprays Nasal Inhalation Every day each nostril Contact prescribing physician if questions or concerns Unchanged fluticasone nasal (fluticasone Nasal 0.05 mg/ inh Comfort) See instructions USE 2 SPRAYS IN EACH NOSTRIL ONCE A DAY Contact prescribing physician if questions or concerns Unchanged gabapentin (gabapentin 300 mg Cap) 1 Capsules By Mouth Once a day (at bedtime) BMI 26.0-26.9,adult Non-smoker Diabetic neuropathy Contact prescribing physician if questions or concerns Unchanged insulin aspart (NovoLOG FlexPen 100 units/ mL injectable solution) See instructions check blood sugars AC and Hs and cover 150-200 2u, 201-250 4u, 251-300 6u, 301-350 8u, 351-400 10u and 1unit per 15 carbs Contact prescribing physician if questions or concerns Unchanged insulin glargine (Lantus Solostar Pen 100 units/ mL subcutaneous solution) See instructions 15 u subq in the morning and 17 units sub q in the evening Contact prescribing physician if questions or concerns Unchanged levothyroxine (levothyroxine 50 mcg (0.05 mg) Tab) 1 Tablets By Mouth Every day Contact prescribing physician if questions or concerns Unchanged magnesium oxide (magnesium oxide 400 mg Tab) See instructions TAKE 1 TABLET BY MOUTH EVERY DAY Contact prescribing physician if questions or concerns Unchanged metformin (metformin 500 mg ER Tab) 1 Tablets By Mouth Every day Contact prescribing physician if questions or concerns Unchanged metoprolol (metoprolol 100 mg ER Tab) 1 (more content not included)... Normal [facility] Office/Clini c Noteon 01-01-2024 Family Medicine Office/Clinic Note Family Medicine Office/Clinic Note Chief Complaint The patient presents with concerns including frequent nighttime urination, leg weakness, and a request for preventative screenings. HPI Staff Rafi is a 68 year old female presenting for 6 month follow up DM, HTN Do you have any of the following symptoms? Foot Exam: none recent but done in past Eye Exam: due Nov or Dec Last A1C: Hgb A1C %: 7 % High (07/03/23 11:12:00) Statin: atorvastatin 80mg Patient is here for follow up on hypertension. How often are you checking your blood pressure? Doesnt check BP at home What are your average readings? N/A, Not checking at home Yearly BMP: 07/29/23 questions/concerns: brought urine sample in not sure if has UTI needs her pen needles refilled needs 5 boxes at one time, last refill only gave her one box History of Present Illness The patient is a 68-year-old female presenting with multiple health concerns during this visit. She reports a long-standing history of blood in the urine, which has been present since she began visits with Dr. Butler, spanning over several years. The blood is persistent, but the patient's physician indicates it may not be an immediate issue unless it continues. The patient also discusses a history of a severe episode of vertigo, following apparent food poisoning, which led to significant dehydration and necessitated assistance during travel. This vertigo was severe enough to impair her mobility, requiring wheelchair transport. The dehydration was thought to be secondary to diarrhea experienced during her visit to see Grace in September. Additionally, the patient reports considerable stiffness and weakness in both legs, described as occurring from the knees down, particularly after sitting for extended periods. The onset of these symptoms coincides with a history of heart surgery, after which she reports a general decline in her health. There is noted weakness without cramping, and the symptoms appear to improve slightly after rest. A detailed evaluation of her vascular health and potential blockages to the legs has been planned to address the concerns. Regarding her nocturnal urination, the patient attributes multiple nighttime awakenings to diabetes, although the physician notes that her current diabetes control is notably improved with an A1c of 7. Recommendations were made to investigate a possible issue with bladder function, such as incomplete bladder emptying, which may benefit from a urological evaluation to assess for structural or functional urinary conditions. Consideration of a potential bladder suspension or adjustments to medication was discussed as a plan for management. Furthermore, the patient expressed a desire for preventative screenings, including a colonoscopy, due to a family history of colon cancer, although her last colonoscopy did not reveal concerns. A mammogram and other routine women's health screenings were also part of the conversation. Review of Systems PHQ Score Initial Depression Screen Score: 0 SCORE - General: Reports chronic blood presence in urine. - Neurological: Reports history of vertigo. - Musculoskeletal: Reports stiffness and weakness in legs from knees down, especially after sitting. - Genitourinary: Reports frequent nighttime urination and blood in urine. Physical Exam Vitals & Measurements T: 36.6 ?C(Oral) HR: 70(Peripheral) RR: 16 BP: 120/72 SpO2: 98% HT: 61 in HT: 154 cm WT: 66.8 kg WT: 146.96 lb BMI: 28.17 General: alert, no acute distress ENMT: oral mucosa moist Cardiovascular: Regular rate and rhythm, normal peripheral perfusion Respiratory: Lungs clear to auscultation, respirations non labored Extremities: no deformity, no trauma Neurological: oriented x 4, level of consciousness appropriate for age, CN II-XII intact, motor strength equal & normal bilaterally, speech normal Abdomen: Soft, Non-tender, Non-distended, + Bowel sounds Assessment/Plan 1. HTN (hypertension) (I10: Essential (primary) hypertension) The patient requires continued monitoring and management of her blood pressure within target ranges. Regular use of antihypertensive medication, dietary considerations, and lifestyle modifications are essential components of her care plan. Current medication regimen will be adjusted to ensure blood pressure remains well-controlled. Ordered: [facility] Internal Ambulatory Referral [facility] Internal Ambulatory Referral US PVR Lower EXT Complete Bilat 2. Peripheral vascular disease, unspecified (I73.9) Differential diagnosis includes peripheral vascular disease. Appropriate vascular studies such as an ankle-brachial index (BREEZY) may need to be performed to determine blood flow to the legs. Management will depend on these findings, potentially leading to surgical or conservative interventions. Ordered: [facility] Internal Ambulatory Referral [facility] Internal Ambulatory Referral US PVR Lower EXT Complete Bilat 3. Screening for colon cancer (Z12.11: Encounter for fl (more content not included)... Normal [facility] Comment on above: Result Comment: Elec tronically Signed By: Mervin SHANNON, Francisco Terrell\.br\Date and Time Signed: 01/01/24 09:58 EDT CHEMISTRYOrdered By: [employer] on 10-03-2023 Cholesterol [Mass/Vol] 95 mg/dL Low 120 - 200 mg/dL [facility] Cholesterol in HDL [Mass/Vol] 47 mg/dL Invalid Interpretation Code [facility] Comment on above: Result Comment: '>= 60 LOW RISK' '<= 40 HIGH RISK' Cholesterol in LDL [Mass/Vol] 34 mg/dL Normal <=129mg/dL [facility] Cholesterol in VLDL [Mass/Vol] 18 mg/dL Normal 7 - 40 mg/dL [facility] Triglyceride [Mass/Vol] 89 mg/dL Normal <=149mg/dL [facility] Lipid Panelon 10-03-2023 Cholesterol [Mass/Vol] 95 mg/dL Low 120-200 [facility] Comment on above: Performed By: #### [id number] #### [facility] [address] [place] [address] Cholesterol in HDL [Mass/Vol] 47 mg/dL Invalid Interpretation Code [facility] Comment on above: Result Comment: '>= 60 LOW RISK' '<= 40 HIGH RISK' Performed By: #### 2 [id number] #### [facility] [address] [place] [address] Cholesterol in LDL [Mass/Vol] 34 mg/dL Normal <=129 [facility] Comment on above: Performed By: #### 2 [id number] #### [facility] [address] [place] [address] Cholesterol in VLDL [Mass/Vol] 18 mg/dL Normal 7-40 [facility] Comment on above: Performed By: #### 2 [id number] #### [facility] [address] [place] [address] Triglyceride [Mass/Vol] 89 mg/dL Normal <=149 [facility] Comment on above: Performed By: #### 2 [id number] #### [facility] [address] [place] [address] Coding Summary.on 09-12-2023 Coding Summary. [id number]+PG hl YWQ+BG5WUVZyW06dwJLgvT 4eP4TDAJjUMunkGARDRLwP EjTxrbAcTJ2lxTTqGBYw IC8+DK4pUSVaOsgcxDLrz1 I4gMP3W00pcc4yKGnphYN6 TJOpUvXfufkaf5egrHr0DN cuNmluOyBt ULZapF71KTH2vE44Gn19qA YcyJYdc0udnSg7QqCwHZHx KSO3oMffHQarg2RvWJLoC8 9gnETcr8G4 FGBifUdqbGSyGxHrfMY2oB 0qOIxoadtow3jorfpqTau4 fs35kPSdf4V2iMQ9J1Idna K5NLFfkLVy YedqqGNNgK5ofhswx2lbge rgRrAzAZDxQKy1VLl2LWGz mLsgLlRbZV51YXB6JGLhao XzR0EmYKQw cEcaKrF8n9K7Ux1LX0LDRo xkD8STEJZVHQqbuLE+PC90 uj11M4WiBehaAjk5TZFlZM O5qVG6hP8h VVSqNPsxm2B3tTG2Z7Luws Npke9eo1uiVLZmSNruA39n cEWng5M8QOSspBM3ICRnqZ prJjTlbR63 Oyc+QDVvtOypw9PpOnvyq3 yuu2ezuGc5PsseMNUmdvAx eNymEMM9r6IgAq8eMZVyoU A7pZP5tX9w KsXgMqJ2ZCogP745YoRoiR ZgBwbdE27lJ8WgbAO+PHRy Ugu9DUEyuXesON6qS8HgZF RpbmctbGVm eVzcTA2fLVAtiqaqDLRwbY 1dPRJmV4u8VeIeUnQ4DUki I6TaCQPmcmdcSk32lP9tNp McZuY4RSaz O9UkmxL7ZJDnkPYdJHrsTN I9A72nu6X6CZFgSLAqLVE0 mNB5lA1zsBmercmczNTkyH sgdmVydGlj LMjuPYyhG104UVWdwGvfOf NvZGluZyBEYXRlOiAgMDYv MjYvMjAyNDwvdGQ+PHRkIH K8hOnkEXRx yQVeGIqwJk9zfJjvgTqcNY 0iLTVmfvowCXRquJ7lJXTm oXEvnIxzMJ5lHENdtpycp1 65DlItGXR8 HBDqcDLeB7PozK0iCnKrVL PoHQBhG3UjtVYvJEriJ541 LXamBrR4SNAzvaJwM8SaTI FsaWduOiB0 u9M4Qm9Zc4XfpgnzS5LxhV CxKxDjRwucDYi1R4XxQgdz dHI+JD62KRNuFU47AMv7WB I7oHjsNTyd MLJvF5GgxD2jFjFbLYZhUH RkOyc+PHRhYmxlIHdpZHRo IEpgDLEiCpDgiUisZY1aQo 9yZGVyLWNv lXilgERqLqIaz6nxFMAfKB grAM8pcQerG6AlpGQ0YAZf v3o6Nr25J72cF6IgxXR+PG UstSR4pGC1 rX2uNkHhUjI2KBmqT981Qo XbuVWxWauim4yxw6strAs5 XjB9DKXmrnPaeHujHHX3j0 PzVi58E77d IHdpZHRoPSIxNSUiIHZhbG fgvh4otO4vKo7+PGNvbCB3 fLJ6dR6cOyPnTqC9AGtbI7 49InRvcCIv Rvcmx9ggn0tdxCi3UsBfFY QtmqUzqOceLNZ0m8NiRn43 W7JsnSmih5FwLqv2dj31jJ Hjt5O3xYW3 X3OaHOMnhfixjUVdoLlhPR 4oEBJfkakjPTZjuN0gBXMs N9u9KpFiQwI2OIohO9Kyem A0HIGarYZl YOLvmNUUyD5vuihmo0phug edLoSxYBQlNTj6YAc5MGTk cCakRcTdFWR0AjN7LZO0qQ BvlL6toWvf wgprnW9uVyx+AIQ7wBYfiD PMDQ2lCshwcJZ+PHRkIHN0 aOgoPQouKYCtiZ1oRBWdY8 e3SyAvEfO9 HXeiJ3PlpcD0EAKqgVDwAD JyiUMKyQ2nwlgyp4pigrse OkVqIZJtUOi4SEy1YWMfrX duOiBsZWZ0 HqU4BFE5rHZxnF0bsFcxtx wwnS9hOmo+QmlydGggRGF0 OEn7K1BuWma6RIOtdBlfUV 0ncGFkZGlu Ej3vrTfscZnrHQ3xVLTdby ydb537FoQjj3mbYHAiyUSo TRzwGAU4X91xv3M4CSEuDE SdVGC2yHY8 aQ9bsCzjshmaaBQbsCzeoq DdqXkeDXbyRQvkU824DGCu uKdoRpMyGAx0N5JkPfi7IG LerNftIT8m rRNnVHubUk0wuMcskPadGJ 6oYOAwbezyi562YrPph7yx OJMwhGXqAXwpGPT7E51gp5 B3MHYsKPTi OLP0sFE2hB6ugHrkyhrddZ VmdDsgdmVydGljYWwtYWxp O787HNImuBgwGdArqTk0F4 TxXeg5MGAc qJebZB3arXGmZJihSg7ldM qvyVieYP3kHMPbkqmks946 ZhAwp0ipXIJyeUHeOHiiZD S8B07zz5X7 VMTwKMLyJYR9rRA4iZ0bqV lnbjogbGVmdDsgdmVydGlj MWcgHQjiX968QAHkdKstWb BhdGllbnQg XZcdVOn1H8WpGsdfpBY+PC 90DVLhMK66jFNfxKKhj5ig dQy4QgFyVJUqIHV5hHugKM pyk1JmOSYm T07vbRXqf2S6MGQwrBjlzR JcYlDcsWS4tS7jSOqptjrc n7irplpgRfhqi3gxol95aE 00P02oPEex ZHRoPSIzMCUiIHZhbGlnbj 4otI2tGk6+NRZpcEH9rDX7 sP6aKEZbPkB2HXweE056Va RvcCIvPjxj g3uhr5dgmLu0UwL8ZECexl AerWjuIQD5t5LdUh43U05c IHdpZHRoPSIyMCUiIHZhbG skyh6jaZ4n Ii8+YMPtaLT6wSE0fD3jXu CzUeF2GYnnW662IoXboSWo ZjnuA73nV7XsgGY+PHRyPj d2PFTibIjf EG3hjWWiFCukAe7pUVC0Fv UiUqAhEMhxE1MpMGSzdeaj gzfaeFW8IPHeVHFnuC98Ve 9udDogMTBw kYCXaW7ynuihf6eexmarHl YdNCKlRMy9QSu9QJUxrRsh OlDyXQW2XqP6FHZ0hXIgjL 1hbGlnbjog zJ0hF3BbREYjkvbfAf71bI 2wBzJuPlH3DRzfAys+U0hF YMlHKDawJzLSB6rjCiyylK Q+PHRkIHN0 hXhcCCulUUXpwE6qRVPrB6 x5SxNkVgV8WAkgO5ImIUSl kfjvVi38yM8lPvQyKaO5YH ekD6PfbqC3 IJVbpGHnZXmeOHO0J43na8 S1NCEcXCMaXBA4vVE0xM6j bGlnbjogbGVmdDsgdmVydG ljYWwtYWxp U156EDExxTwvVeYpOyCkOl P7WXI9X3FjDxo1SQSmeOrw EA8ewPJfAEgrJy1uiBlxcC ziUP1fMOXp zwnxIHComG3tTMAgsNGqhJ cvFW2xKRBhbiwxt243AzOd LND3WMCpuESdO9BerU8uKx AjMDAwMDAw V5GlzBHiXXveA921CIdbXi O0MVTfuuMxV5OsMBIdbPrp VqV1u6J5Oi92ZQFGEZTquf wvdGQ+PHRk BJF1sRwhKWoaAGGasJ9tNA VfD6f1EhGtReO2SIddA2Al VOCqoasmYd84aD5kHtYhZa O0RYkqI0Vw jfR2OWUhvOMhPNpwDNM8J3 2yj4W0RIHzLUNhXEL7pVO0 eN8ykKwhftlraPPfoIgbcs VydGljYWwt QDqnY891EHFikKonTvBjfW FsZTwvdGQ+CIHxJHD5oTbm GUtkRAJgwP0oQVXzG8r6Xg EmWcD9LBms N7DwYUVtlofrCs15aS2eYs OnAaX1GUigR6MhmmJ8FJUl fFOeEYdvDES4Z33ql2C7HO MwMDAwMDA7 eMV3nW1usXxshnfxmVAcsL feqpPmrIlyBBmbWKdbD275 YLGxxPabIx93fVRtnXxmic A4D0NwNsnl dHI+VX95BKEbPJ06iUFqqI Osy7iszJc2GeWjCFQhEDH6 fCotTBwni6DjIIXoO68ykS Ycb9M5XLGs fLferQDjQzJdlEZ6hV5oRC wefcxmv1oxedopXicra8vg cy24tZ44L03eXKumHUWcXK IzMCUiIHZh kGehbe9iyI2gSb7+PGNvbC A0wTB0yZ0cFjUrDyC3UPgy D114VaIacRCvCtnqq0ous7 krwBf1PcYe RUDehrCylIfyNGL1s4BnQo 11F65kBHyfHPNmWEXwPKTy FMDqyZltov5mvO4zOs7+PC 6ph7nxcz43 hM61fKR+KEWeALD7dDnyLY bcWMAvzP3nGOpyWnN5PDCa NmLyhF95bRRhKCpqNq3ueV qfjSlxLY7s UGEubdbrf024BoBpo0tpAH ScqSYmYAbvEFY6Y50ru2C3 LJQfUFZsYIK8rEC2zQ9nnR lnbjogbGVm dDsgdmVydGljYWwtYWxpZ2 27RJEwwLeiLcTcwADeM7jt wbPFQU3bUtlsfXU+PHRkIH E0gDxmRVjn XPHhxU6nFRPnI8a0NuTvZn Y9DDpbD6CqbxF0XUWmiOQy FAVbxKDFiN9dcsggj3pwvu ogIzAwMDAw OKq3HKt9ETTlcSndEzGwUW D7CnX0FKH2aYBwwK8jsAew fskqoF6vEka+RklOOjwvdG Q+PHRkIHN0 qNavBCzuEHBepG1nYWDmX4 w5OjDcGmP4NYerN2RkfcF1 SQHjoBHwCKTlgTYSuD8wci zvk6ynnret OsOiIFWgMJa3ARn1TJKszS moCqHoLIH8KyH4RPE8nJXz uG8fuDzdpyyygO6bIcs+TV JOOjwvdGQ+ KGLxKLJ4tWijHJmwTFFzjY 9iHZNoZ9m9WoNeOpS3BMtn Z3YqyfI5AUJocHKyRFYrlC ELdU6qbyed v4slscaxIcMoXOYmCYv8OG h3PQPanDfyNyDcJXV1AeD7 ISI9fPOpfF5liHavvptsjP 9wOyc+UGF5 EXQ0UM94SD43I8TrMapgbV FibGU+PHRhYmxlIHdpZHRo BBjgAEBnLcYufSpgQD8jWr 9yZGVyLWNv bGxhcHNlOiBjb (more content not included)... Normal [facility] Coding Summary. QYXYYcxq34QFa9cVp+PG hl YWQ+OL9XEUXuV30siDKqhI 7tM1OTCAmDDsosSAGWQCbB MeBjjeWvBF6oqRYzMDMm IC8+OU9gDQMbUigbvCWba9 Y5tPM4X31frh6mBYvxzFJ1 LISfYlFhwvdow0jyvAm3NK cuNmluOyBt WRDmaU52RPY6oZ81Bv00gN TomGRdu1rsbDj6HwXfVFVy LPE1qVyqLVhxm3HmAADkZ1 0zxDUgw1T3 OKLsoJnidVOySnNepNS2rH 9fCYqvzoank0wvrkiiJlv0 uw68oLDlp3Q6aOT3M9Qduv T2JSQitIUq BuvonDYGzC3bufnkg8xhtw thCkLfOUReGXm1OOb2XGJd rPsvBiWuZR42APN3RZExqq QmU4BgXDCm xBxuNyI5a0Q9Hn9XX4KDFl wlA3PSTVRODRpyhWX+PC90 pu70G5HmMjceSme3MTStXS R0hBH4zY7k YISlFBpig7R7sWU4H8Hhih Pthe3rk6awOJGoMXzoW11b cAYnz8S4YRGsnHU2UPJlqA vaBhZdqB41 Oyc+TCCytTpmy6HbKxwdi8 okc7scaDh4DwbzAGYprtBr nXugCPJ7v5BiUq3yXFRusS R0mBY2mP4g BpWtNnZ0AHoyQ736FlYabI QqOfjmP40tW2PjmXB+PHRy Zwr4JTVdqXswFV7hN4LlLL RpbmctbGVm aKhqJZ5wKOBjlpekWRDhqC 2tECDgN0z2FhTdZlY9PPcq A4TgELXyoahzGb32wQ4bRj OmUfY4BOqb T9NhwzM5RCUdtFImDGxbHV A0E74tk3C4QGTeVQSwQIV8 oSV3fP1rgQlksslptHMxtA sgdmVydGlj DXrkOXbmB194LAIxdHheNb NvZGluZyBEYXRlOiAgMDYv MjUvMjAyNDwvdGQ+PHRkIH U0nOimFGEc yIZoAMqcKe5dcGwpoCdnOC 9iVMFkktcmWYHssK8vOGKq cYAzeZqlPT0mLYBftzdaq5 99MlQvZLR7 BCFjrEUtZ4LlsA2gRuCrPC XrKFMdV0KioFTgZRznN259 ESkzJuR2SRKmlkVnU0YzCP FsaWduOiB0 e0K9Uk0Ol5KrojykF6SblF KfVtEyPvudQEt6L9DvOwgc dHI+MF22CMDyFN08YWd9WX S0kMkbNTmw JFSfO5EusI5cCuFgPEIlWY RkOyc+PHRhYmxlIHdpZHRo NNepFVYaDnVfkKqsYH1cNo 9yZGVyLWNv yJnksSSlXxLpj7ckGXEyGK xdTV9jvWzcM2OdvXS2ZGLw u2s7Kg51H42tQ8VdwLQ+PG FkyVH1yXS3 xR5xJyGoCxW6HRizG052Ya UpuHPqCzytl5jnq2tbyAe4 EnU8PXLbeuXykUgmGYH1q4 JyXa50K80w IHdpZHRoPSIxNSUiIHZhbG mnnd7zsB9nZy9+PGNvbCB3 zVK0sA8uDpWkJpQ7QXteU4 49InRvcCIv Owyfh7svl6ugnPn9RpEqYR VhgnVqxCpjXUB4t1EwAe98 Z2NbqVizi5TrKvx6dr67tH Hnz3O0oUE6 B3NlMIImqkgimDJjkZvvYQ 4tWBWwgryoNNWpgT8wDHNf M6z0PkLuAuP4DMxnE2Pydw E8OGJyxQHm PWXcvIGDfE9rewfsa8qpux onRcMxYETyYZn1ADk4HJXt kFjpBnHaCGX3PsZ5BAF7sV QgcQ9cdUju qavmkC0nBbw+YJA5yFCxtR YFSG7yXeyymOO+PHRkIHN0 rIrdJTqmGRLbdW3qRWQvV3 m9HpJgUvR3 VWruE4AwiuB1PXGuhRYdCV NcmCEUzW5cyagrg8taltxt KcWvRRNgANc0RNd3SCYbhC duOiBsZWZ0 CoR2YMS3jYUgnD5wmFruks yjtZ7nGxn+QmlydGggRGF0 CVp6U9LbOub4CXUnaNlzUM 0ncGFkZGlu Ae1igNgdgFcgWO6tBXTtuo hzc247GiUng8xtZKGjyCZy RCwjBXG9C08uf5J8NCJwSA SpTOM5mHB6 dP9afKednaxgpRAmwZakmr CbbJtmICtxGGraR544SAIo jNhlSaEcAMr8Q6VvLdu7BC OedWgmWK5u jUVyEFqgXh0caClmoFynOQ 5aVPKtibxhv011UtPag7an PBUbzWZrPUjbQBX3D14hc7 C2RZPhIWJp RZR0xWW5vU6pgZrskmheoI VmdDsgdmVydGljYWwtYWxp P131XKCdnNpfHbVseQg4M2 BvVsj3GJLt hFdbWT8fxMLgZFcsNx4neP jwnHtgXP7rNQTyzdevs030 HzDmg7gxKSIkhBVmIPdxBM R3E00yn7W9 YKMpQMHbDJP5hVM1iF5sqL lnbjogbGVmdDsgdmVydGlj CVveODniD412ITEenXfrRk BhdGllbnQg FGxlETb9M7NbTowdsUE+PC 75VLStYT02eAIetSMax3vw wBa2MgJvOIAwLGX5oPmbMY wzx6QrIXAs X80vpNFjp5I5QTDsxEossK SmDkNpvDF7zW8fTFyfqjdb w2faxhdtBekzy0obvb24rB 74V45hEQrz ZHRoPSIzMCUiIHZhbGlnbj 9tpV5eXz9+NPIneXU3rXL7 nF4jXOSeUnB7CDezJ027Fs RvcCIvPjxj v7xpw3soiHe2LxH7SJIebw UmvJweENY8r8RvPx16B04i IHdpZHRoPSIyMCUiIHZhbG dauw0lpP5j Ii8+RPAxmLJ7eSI7vY8qNz BoMxS5ANvkO044JeUcnKAv JdnoV60dT2AxvTC+PHRyPj s5VSIkgPpm GP8pgIWzAEduCc6jHDC0Gs MyCsNfHBdeG3PaFUPnrnlw pjwctMA2ZIAqUWXdfI05Cz 9udDogMTBw sALOnQ0qxvijz0prmkenLw ExIBCzIUe5AKo0CTEwcHyf JiPyXBX2WgQ8BLZ8vDWioA 1hbGlnbjog vU7hK0GkBCPnnufwQv21aW 9kDyJxWhO3CWqdOqz+U0hF FHzKOEfyItMGB2zqDmxuqS Q+PHRkIHN0 pKnpQElzYWVudG4bZCDlO0 x7XbPmZeE1PXieY7RuMGHg upxzKu42bS5fPzDbWpF5FD amU6KfzkC9 IQSznWLtNNywJCM3Y75ti2 Y9UAZmNTMqIAL6pLD6rH1y bGlnbjogbGVmdDsgdmVydG ljYWwtYWxp V883FSFdsSpqZzNqNhYcZt R8MQY4D4OvAgt4BSUhvWyy HI4mxTPgCYkmCt9xgYxzoE kyAA7wCDBv lpiyTQBraH9wTGKijYTpuV nyWJ8vSCLociiej690OvRn LST5CAJviPDnN8BnyY2xCb AjMDAwMDAw I4QuoFYeYXavJ809LVqdPr R3KQAxnoNsP4ApXXDagQti WjD3o7A6Il13QYHSXDWnur wvdGQ+PHRk SFJ7dMasOIrhUOOraX5nES VtN7r1KyWyMlW2OKgbH8Hx BPEevalpXz48jL4hBrZoXt X7WVbjE7Ll hoF5CAAjyDOfBFviUDV0M0 9fz1U3IFSbSCQuJDS2cPW7 oG2yxWxyrhdbvVPjpBvgio VydGljYWwt KYemG832SLQyhEpsFwGujH FsZTwvdGQ+LWVtDCR1uDjq VOptMZWuhL4uSXVzE0h7We PyPwC6FPiq I0ThKZRdtwuvAa93nS2uDw ChKoR5QYumG0LqenB1SQPj gWYkODsxRKZ5W15cr7V5ZI MwMDAwMDA7 gIV7zA3raTarcuyfqAEguY odukXjlIpsKJloWLlgO737 UPEozTjbWp66wOKxzWkwqo N2P9VfFoth dHI+YJ33WNMfKG53oMVlhM Pzh6fgyAn7SuChSAPaUGH4 eQlkECurz6QzQDZxZ29iaE Pcy3Q1NXWq hHwuyKHwUiNfqNX6fC6yFI zjblvwl3fphifjCtqxd4dz dz76sY63J39gZPveXNWaKF IzMCUiIHZh uKapgi5ebB0oFx4+PGNvbC R5bXK1yH0sNsOcQyP5FOjt W640WhGggVSiWzxio9hzc9 tbyIe1HkXi UPJqghLxwEriFRX1h8FzZb 58L94sFSwoMLBcNKQmOCXw HJFmtFpsht2mqD8nXg2+PC 0dl8ersj30 bT29sKR+YUTgUHX1mXvxPE evSZRknR4jFOfdJaE0RPYu SkZggB62wZTuELobGf6zpC swbYioCX7n IPNcvecag075DmYco8txJP PjdIHbDCgsBLH6J09su1R0 WLLsKUZtNOL0hNT6xM7mrV lnbjogbGVm dDsgdmVydGljYWwtYWxpZ2 32AHZznQkzBaBylULjF0dd thLFZJ0hCkjmnKJ+PHRkIH V3qXclEGxs LHXzkK7yJPKdP6s6ExOxCt A7BBzoN4FcrdU5ERFfhZCi KTJdhADHuX3bwbzsg6ztwk ogIzAwMDAw TTd4UQu2YCEgvSjaUzTwDI U6AgQ4EWJ0yMPoaY1szBag vnhjhM8nAks+RklOOjwvdG Q+PHRkIHN0 yIvvYOpaNKGrkG8yAPVoR4 p7NmQhRvQ2MFdrL4TitbP4 XVGpvPDlFZZejJZVpD5ugd xgw8kreggw DcJjPEMdELr8CRl3OATnwU brDdBpNUA0SnP0JXX6sBDc lC8ijLrmpakxtA5dGot+TV JOOjwvdGQ+ MSDgMBH4cIgkRWmkQVZfqH 9gXZMqY9y6WhZvJuD2ETvx S0ZtzfB3HQYofNVaHZWnrU DEnI4kmmlz e6fsqnjyCsUlOXAqJBx5FY p0MNGnpYctAtNkWTX1XvA7 YPR4iWWjyU3oxAinibvbgT 9wOyc+UGF5 EIQ7UJ56GB02G7EjUcchdW FibGU+PHRhYmxlIHdpZHRo FLnbKEXzBbIcfCgeFS4xDf 9yZGVyLWNv bGxhcHNlOiBjb (more content not included)... [facility] Ambulatory Visit Summaryon 0 09-10-2023 Ambulatory Visit Summary RAFI ROPER :1955 Visit Date:09/10/2023 Ambulatory Visit Instructions Your Diagnosis Benign neoplasm of cerebral meninges BMI 26.0-26.9,adult Over weight Nonsmoker Your Care Team Attending Physician - Francisco Mckeon MD Primary Care Physician - Francisco Mckeon MD This Is Your Medications List Misc Prescription ([employer] Flash Glucose Monitoring 14 Day System (Sensor)) Misc Prescription (Misc DME Prescription) aspirin (aspirin 81 mg Oral EC Tab) atorvastatin (atorvastatin 80 mg Tab) dapagliflozin (dapagliflozin 10 mg oral tablet) ezetimibe (Zetia 10 mg Tab) fluconazole (Diflucan 150 mg Tab) gabapentin (gabapentin 300 mg Cap) insulin aspart (NovoLOG FlexPen 100 units/mL injectable solution) insulin glargine (Lantus Solostar Pen) levothyroxine (levothyroxine 50 mcg (0.05 mg) Tab) losartan (losartan 50 mg Tab) magnesium oxide (magnesium oxide 400 mg Tab) magnesium oxide (magnesium oxide 400 mg Tab) metformin (metformin 500 mg ER Tab) metoprolol (metoprolol 100 mg ER Tab) metoprolol (metoprolol 50 mg ER Tab) Procedures Performed Open heart surgery (2020), Cataract extraction and insertion of intraocular lens (07/23/2019), Cholecystectomy, Colonoscopy, Tooth extraction, Tubal ligation. Discharge Vitals Temperature (Temporal Artery) 37.0 ?C Heart Rate (Peripheral) 64 Respiratory Rate 16 Blood Pressure 112/74 Height 154 cm Height 61 in Weight 64.0 kg Weight 140.8 lb BMI 26.99 What to do next Scheduled Follow-Up Appointments Sunday 9:15 AM EDT With: Mervin SHANNON, Francisco Terrell Where: [facility] Medicine [place] [facility] Medicine Office/Clini c Noteon 09-10-2023 Family Medicine Office/Clinic Note HPI Staff Rafi is a 68 year old female presenting for acute visit Acute: left ear plugged Onset: 2 weeks, went on vacation and plugged up from flying and it's been plugged up every since, tried debrox and home remedies and can't get it unplugged History of Present Illness - See staff HPI. Review of Systems PHQ Score Initial Depression Screen Score: 0 SCORE Physical Exam Vitals & Measurements T: 37.0 ?C(Temporal Artery) HR: 64(Peripheral) RR: 16 BP: 112/74 SpO2: 97% HT: 61 in HT: 154 cm WT: 64.0 kg WT: 140.8 lb BMI: 26.99 General: alert, no acute distress ENMT: oral mucosa moist, Fluid noted behind both TMs. Cardiovascular: normal peripheral perfusion Respiratory: respirations non labored Extremities: no deformity, no trauma Neurological: oriented x 4, LOC appropriate for age, CN II-XII intact, motor strength equal & normal bilaterally, speech normal Assessment/Plan 1. Eustachian tube dysfunction (H69.90: Unspecified Eustachian tube disorder, unspecified ear) - Flonase, Nasal Saline, Benadryl, Zyrtec - Follow up if needed 2. Benign neoplasm of cerebral meninges (D32.0: Benign neoplasm of cerebral meninges) - NO issues at this time. - Will monitor Ordered: Body Mass Index (BMI) documented 3008F Current tobacco non-user 1036F Depression Screening Negative 3352F Influenza immunization administered or previously received 4274F Most recent diastolic blood pressure <80 mm Hg 3078F Patient screen for fall risk: no falls in last year or 1 fall with no injury in last year 1101F Systolic BP <130 mm Hg (Most Recent) 3074F 3. BMI 26.0-26.9,adult (Z68.26: Body mass index [BMI] 26.0-26.9, adult) - BMI education added Ordered: Body Mass Index (BMI) documented 3008F Current tobacco non-user 1036F Depression Screening Negative 3352F Influenza immunization administered or previously received 4274F Most recent diastolic blood pressure <80 mm Hg 3078F Patient screen for fall risk: no falls in last year or 1 fall with no injury in last year 1101F Systolic BP <130 mm Hg (Most Recent) 3074F 4. Over weight (E66.3: Overweight) - Diet and exercise advised Ordered: Body Mass Index (BMI) documented 3008F Current tobacco non-user 1036F Depression Screening Negative 3352F Influenza immunization administered or previously received 4274F Most recent diastolic blood pressure <80 mm Hg 3078F Patient screen for fall risk: no falls in last year or 1 fall with no injury in last year 1101F Systolic BP <130 mm Hg (Most Recent) 3074F 5. Nonsmoker (Z78.9: Other specified health status) - Please continue to not smoke Ordered: Body Mass Index (BMI) documented 3008F Current tobacco non-user 1036F Depression Screening Negative 3352F Influenza immunization administered or previously received 4274F Most recent diastolic blood pressure <80 mm Hg 3078F Patient screen for fall risk: no falls in last year or 1 fall with no injury in last year 1101F Systolic BP <130 mm Hg (Most Recent) 3074F Orders: fluticasone nasal, 2 spray(s), Nasal, Daily, 16 gram, Refill(s) 0, each nostril, [facility]/pharmacy #[id number], 154, cm, 09/10/23 11:04:00 EDT, Height/Length Dosing, 64, kg, 09/10/23 11:04:00 EDT, Weight Dosing insulin glargine, See Instructions, 15 units sub q in the morning and 17 units sub q in the evening, # 15 mL, Refills(s) 3, Pharmacy: [facility]/pharmacy #[id number], 154, cm, 07/29/23 12:14:00 EDT, Height/Length Dosing, 63.5, kg, 07/29/23 12:14:00 EDT, Weight Dosing Follow-up No qualifying data available Patient Education BMI for Adults Problem List/Past Medical History Ongoing Acute URI Aorto-iliac atherosclerosis Benign neoplasm of cerebral meninges BPPV (benign paroxysmal positional vertigo) CHF (congestive heart failure) Colon cancer screening COVID Diabetic neuropathy DM type 2 causing vascular disease Eustachian tube dysfunction GERD without esophagitis HTN (hypertension) Hyperlipidemia, unspecified Hypertensive heart disease with CHF Injury of left foot Long-term insulin use Total bilirubin, elevated Type 2 diabetes mellitus with hyperlipidemia Historical No qualifying data Procedure/Surgical History Open heart surgery (2020), Cataract extraction and insertion of intraocular lens (07/23/2019), Cholecystectomy, Colonoscopy, Tooth extraction, Tubal ligation. Medications aspirin 81 mg Oral EC Tab, 81 mg= 1 tab(s), Oral, Daily atorvastatin 80 mg Tab, 80 mg= 1 tab(s), Oral, Daily, 3 refills dapagliflozin 10 mg oral tablet, 10 mg= 1 tab(s), Oral, Daily, 6 refills Diflucan 150 mg Tab, 150 mg= 1 tab(s), Oral, Once Flonase 0.05 mg/inh [place], 2 spray(s), Nasal, Daily Freestyle Lokesh Flash Glucose Monitoring 14 Day System (Sensor), See Instructions, 11 refills gabapentin 300 mg Cap, 300 mg= 1 cap(s), Oral, Once a day (at bedtime), 3 refills Lantus Solostar Pen, See Instructions levothyroxine 50 mcg (0.05 mg) Tab, 50 mcg= 1 tab(s), Oral, Daily, 3 refills losartan 50 m (more content not included)... [facility] Comment on above: Result Comment: Elec tronically Signed By: Mervin SHANNON, Francisco Terrell\.br\Date and Time Signed: 09/10/23 11:31 EDT Patient Educationon 09-10-19 Patient Education Nutrition BMI for Adults What is BMI? Body mass index (BMI) is a number that is calculated from a person's weight and height. BMI can help estimate how much of a person's weight is composed of fat. BMI does not measure body fat directly. Rather, it is an alternative to procedures that directly measure body fat, which can be difficult and expensive. BMI can help identify people who may be at higher risk for certain medical problems. What are BMI measurements used for? BMI is used as a screening tool to identify possible weight problems. It helps determine whether a person is obese, overweight, a healthy weight, or underweight. BMI is useful for: ? Identifying a weight problem that may be related to a medical condition or may increase the risk for medical problems. ? Promoting changes, such as changes in diet and exercise, to help reach a healthy weight. BMI screening can be repeated to see if these changes are working. How is BMI calculated? BMI involves measuring your weight in relation to your height. Both height and weight are measured, and the BMI is calculated from those numbers. This can be done either in Chinese ([place] or metric measurements. Note that charts and online BMI calculators are available to help you find your BMI quickly and easily without having to do these calculations yourself. To calculate your BMI in Chinese ([place] measurements: 1. Measure your weight in pounds (lb). 2. Multiply the number of pounds by 703. ? For example, for a person who weighs 180 lb, multiply that number by 703, which equals 126,540. 3. Measure your height in inches. Then multiply that number by itself to get a measurement called inches squared. ? For example, for a person who is 70 inches tall, the inches squared measurement is 70 inches x 70 inches, which equals 4,900 inches squared. 4. Divide the total from step 2 (number of lb x 703) by the total from step 3 (inches squared): 126,540 ? 4,900 = 25.8. This is your BMI. To calculate your BMI in metric measurements: 1. Measure your weight in kilograms (kg). 2. Measure your height in meters (m). Then multiply that number by itself to get a measurement called meters squared. ? For example, for a person who is 1.75 m tall, the meters squared measurement is 1.75 m x 1.75 m, which is equal to 3.1 meters squared. 3. Divide the number of kilograms (your weight) by the meters squared number. In this example: 70 ? 3.1 = 22.6. This is your BMI. What do the results mean? BMI charts are used to identify whether you are underweight, normal weight, overweight, or obese. The following guidelines will be used: ? Underweight: BMI less than 18.5. ? Normal weight: BMI between 18.5 and 24.9. ? Overweight: BMI between 25 and 29.9. ? Obese: BMI of 30 or above. Keep these notes in mind: ? Weight includes both fat and muscle, so someone with a muscular build, such as an athlete, may have a BMI that is higher than 24.9. In cases like these, BMI is not an accurate measure of body fat. ? To determine if excess body fat is the cause of a BMI of 25 or higher, further assessments may need to be done by a health care provider. ? BMI is usually interpreted in the same way for men and women. Where to find more information For more information about BMI, including tools to quickly calculate your BMI, go to these websites: ? Centers for Disease Control and Prevention: www.cdc.gov ? [place] [employer]: www.heart.org ? National Heart, Lung, and Blood [place]: www.nhlbi.nih.gov Summary ? Body mass index (BMI) is a number that is calculated from a person's weight and height. ? BMI may help estimate how much of a person's weight is composed of fat. BMI can help identify those who may be at higher risk for certain medical problems. ? BMI can be measured using Chinese measurements or metric measurements. ? BMI charts are used to identify whether you are underweight, normal weight, overweight, or obese. This information is not intended to replace advice given to you by your health care provider. Make sure you discuss any questions you have with your health care provider. Document Revised: 11/26/2019 Document Reviewed: 10/03/2019 [employer] Patient Education ? 2022 [employer] [facility] BMPon 07-29-2023 Anion gap [Moles/Vol] 9 mmol/L Normal 6-16 [facility] Comment on above: Performed By: #### 1 [id number], [id number], 4753828, 4403990, 0880403 ####[facility] [address] [place] [address] Calcium [Mass/Vol] 9.2 mg/dL Normal 8.9-11.1 [facility] Comment on above: Performed By: #### 1 4335590, 14892678, 9311957, 1402245, 2408133 ####[facility] [address] [place] [address] Chloride [Moles/Vol] 106 mmol/L Normal 101-111 [facility] Comment on above: Performed By: #### 1 1125236, 42235202, 4946780, 0603585, 0786236 ####[facility] [address] [place] [address] CO2 [Moles/Vol] 30 mmol/L Normal 21-31 [facility] Comment on above: Performed By: #### 1 1015438, 34167869, 6038839, 2577622, 8558267 ####[facility] [address] [place] [address] Creatinine [Mass/Vol] 0.8 mg/dL Normal 0.5-1.3 [facility] Comment on above: Performed By: #### 1 0501798, 94399346, 0363494, 0680274, 1061277 ####[facility] [address] [place] [address] Glucose [Mass/Vol] 153 mg/dL Normal 55-199 [facility] Comment on above: Performed By: #### 1 8584103, 35899686, 4188043, 8979812, 3985042 ####[facility] [address] [place] [address] Potassium [Moles/Vol] 3.7 mmol/L Normal 3.5-5.3 [facility] Comment on above: Performed By: #### 1 7396905, 72560351, 6847114, 9982776, 3779674 ####[facility] [address] [place] [address] Sodium [Moles/Vol] 141 mmol/L Normal 135-145 [facility] Comment on above: Performed By: #### 1 0752887, 23116318, 6217484, 4195124, 8134538 ####[facility] [address] [place] [address] Urea nitrogen [Mass/Vol] 21 mg/dL Normal 5-21 [facility] Comment on above: Performed By: #### 1 4737887, 18586373, 7772831, 0507521, 5486630 ####[facility] [address] [place] [address] Urea nitrogen/Creatinine [Mass ratio] 26 No Units High 10-20 [facility] Comment on above: Performed By: #### 1 9344027, 96319296, 0093590, 0241145, 5624848 ####[address] [address] CBC w/ Auto Diffon 4 Basophils/100 WBC (Bld) 0.7 % Normal 0.0-2.0 [facility] Comment on above: Performed By: #### 1 2382501, 59553282, 6677094, 1139701, 3643699 ####[address] [address] Basophils/Leukocytes Auto (Bld) [Pure # fraction] 0.0 E9/L Normal 0.0-0.2 [facility] Comment on above: Performed By: #### 1 6703231, 77268483, 6138421, 5524924, 8189683 ####[place] [address]457 Eosinophils (Bld) [#/Vol] 0.2 E9/L Normal 0.0-0.5 [facility] Comment on above: Performed By: #### 1 4485324, 88761764, 0185046, 2379497, 8278377 ####[address] [address] Eosinophils/100 WBC (Bld) 4.1 % Normal 0.0-8.0 [facility] Comment on above: Performed By: #### 1 4140568, 64213832, 7796683, 7161702, 7462450 ####[address] [address] Erythrocyte distribution width (RBC) [Ratio] 13.3 % Normal 10.9-14.2 [facility] Comment on above: Performed By: #### 1 1815118, 32120355, 3143194, 2233011, 4512102 ####[place] [address]457 Hematocrit (Bld) [Volume fraction] 40.9 % Normal 34.0-46.0 [facility] Comment on above: Performed By: #### 1 6494860, 79792337, 5293464, 3173321, 0512273 ####[facility] [address] [place] [address] Hemoglobin (Bld) [Mass/Vol] 14.1 g/dL Normal 12.0-16.0 [facility] Comment on above: Performed By: #### 1 4268805, 43253155, 0701655, 3956187, 0878565 ####[address] [address] Lymphocytes (Bld) [#/Vol] 1.3 E9/L Normal 1.0-4.0 [facility] Comment on above: Performed By: #### 1 3048335, 61932675, 7387772, 2721029, 8323825 ####[address] [address] Lymphocytes/100 WBC (Bld) 21.5 % Normal 14.0-50.0 [facility] Comment on above: Performed By: #### 1 1828055, 84836010, 8742614, 3446669, 2358456 ####[address] [address] MCH (RBC) [Entitic mass] 31.1 pg Normal 27.0-34.0 [facility] Comment on above: Performed By: #### 1 3267654, 77603159, 7000718, 7419349, 8906297 ####[address] [address] MCHC (RBC) [Mass/Vol] 34.5 g/dL Normal 31.4-36.0 [facility] Comment on above: Performed By: #### 1 8374175, 91845254, 2488604, 4705389, 8084902 ####[address] [address] MCV (RBC) [Entitic vol] 90.1 fL Normal 80.0-100.0 [facility] Comment on above: Performed By: #### 1 4025552, 19996506, 3739956, 7635572, 1316322 ####[facility] [address] [place] [address] Monocytes (Bld) [#/Vol] 0.5 E9/L Normal 0.2-1.0 [facility] Comment on above: Performed By: #### 1 9781768, 24793502, 1571979, 1765333, 0338861 ####[address] [address] Neutrophils (Bld) [#/Vol] 3.8 E9/L Normal 2.0-7.5 [facility] Comment on above: Performed By: #### 1 3788508, 48440762, 3718567, 7409970, 6825717 ####[address] [address] Neutrophils/100 WBC (Bld) 64.6 % Normal 36.0-75.0 [facility] Comment on above: Performed By: #### 1 6480265, 09767915, 0148958, 9178138, 3967126 ####[address] [address] Platelet mean volume (Bld) [Entitic vol] 8.1 fL Normal 6.4-10.8 [facility] Comment on above: Performed By: #### 1 0579205, 67116743, 8031057, 5580846, 6387600 ####[address] [address] Platelets (Bld) [#/Vol] 168.0 E9/L Normal 150.0-500.0 [facility] Comment on above: Performed By: #### 1 6956597, 58913272, 8535442, 0412570, 5661116 ####[address] [address] RBC (Bld) [#/Vol] 4.5 E12/L Normal 4.3-5.9 [facility] Comment on above: Performed By: #### 1 6836848, 78218782, 4876413, 6967639, 1291657 ####[facility] [address] [place] [address] WBC corrected for nucl RBC Auto (Bld) [#/Vol] 5.9 E9/L Normal 4.0-11.0 [facility] Comment on above: Performed By: #### 1 9671078, 71384643, 6017703, 7989562, 8312781 ####[facility] [address] [place] [address] CHEMISTRYOrdered By: SYSTEM SYSTEM on 07-29-2023 Troponin 4.60 pg/mL Low 10.10 - 27.10 pg/mL [facility] Comment on above: Interpretive Data: T he 95% CI (Confidence Interval) PPV (Positive Predictive Value) for myocardial infarction in females is 38 pg/mL, in males 51 pg/mL. The results should be used in conjunction with clinical conditions of myocardial infarction. (Access High Sensitivity Troponin I Instructions For Use, Willy Brunswick, October 2017) Albumin [Mass/Vol] 4.1 g/dL Normal 3.3 - 5.0 gm/dL [facility] Albumin/Globulin [Mass ratio] 2.0 {ratio} Normal 1.1 - 2.2 [facility] ALP [Catalytic activity/Vol] 75 [iU]/d Normal 21 - 98 Int._Unit/L [facility] ALT No additional P-5'-P [Catalytic activity/Vol] 46 [iU]/d Normal 6 - 46 Int._Unit/L [facility] Anion gap [Moles/Vol] 9 mmol/L Normal 6 - 16 mEq/L R [facility] AST [Catalytic activity/Vol] 28 [iU]/d Normal 5 - 43 Int._Unit/L [facility] Bilirubin [Mass/Vol] 1.6 mg/dL High 0.0 - 1 .1 mg/dL [facility] Bilirubin.direct [Mass/Vol] 0.1 mg/dL Normal 0.0 - 0.4 mg/dL [facility] Bilirubin.indirect [Mass or moles/Vol] 1.5 mg/dL High 0.1 - 0.9 mg/dL [facility] Calcium [Mass/Vol] 9.2 mg/dL Normal 8.9 - 11. 1 mg/dL [facility] Chloride [Moles/Vol] 106 mmol/L Normal 101 - 1 11 mmol/L [facility] CO2 [Moles/Vol] 30 mmol/L Normal 21 - 31 mmol/L [facility] Creatinine [Mass/Vol] 0.8 mg/dL Normal 0.5 - 1.3 mg/dL [facility] eGFR 79 mL/min/1.73 m2 Normal >=59mL/min /1 .73 m2 [facility] Globulin (S) [Mass/Vol] 2.1 g/dL Normal 1.4 - 4.0 gm/dL [facility] Glucose [Mass/Vol] 153 mg/dL Normal 55 - 199 mg/dL [facility] Potassium [Moles/Vol] 3.7 mmol/L Normal 3.5 - 5.3 mmol/L [facility] Protein [Mass/Vol] 6.2 g/dL Normal 6.0 - 7.8 gm/dL [facility] Sodium [Moles/Vol] 141 mmol/L Normal 135 - 145 mmol/L [facility] Troponin 3.70 pg/mL Low 10.10 - 27.10 pg/mL [facility] Comment on above: Interpretive Data: T he 95% CI (Confidence Interval) PPV (Positive Predictive Value) for myocardial infarction in females is 38 pg/mL, in males 51 pg/mL. The results should be used in conjunction with clinical conditions of myocardial infarction. (Access High Sensitivity Troponin I Instructions For Use, Willy Kendrick, October 2017) Urea nitrogen [Mass/Vol] 21 mg/dL Normal 5 - 21 mg/dL [facility] Urea nitrogen/Creatinine [Mass ratio] 26 mg/mg High 10 - 20 [facility] Consent for Treatmenton 07-17 Consent for Treatment [id number] [facility] Discharge Instructionson Discharge Instructions [id number] [facility] ED Clinical Summaryon 2023 ED Clinical Summary [address] [address] ED Clinical Summary Person Information Name: RAFI ROPER [place] Age: 68 Years : 1955 Sex: Female Language: Chinese PCP: Francisco Mckeon MD Marital Status: Visit Id: Visit Reason: Hypertension; HIGH BP Speciality: Acuity: 3 Enc Type: Emergency Med Service: Emergency Arrival: 07/29/2023 11:47:41 Discharge: 07/29/2023 14:41:33 LOS: 000 02:54 Checkin: 07/29/2023 11:47:41 Checkout: 07/29/2023 14:41:33 Dispo Type: Home (Routine DC) EVENTS: Event Name Event Status Request Date/Time Start Date/Time Complete Date/Time Arrive Complete 07/29/2023 11:47:41 07/29/2023 11:47:41 07/29/2023 11:47:41 Document Home Meds Request 07/29/2023 11:47:41 Triage Complete 07/29/2023 11:47:41 07/29/2023 12:14:29 07/29/2023 12:14:29 Registration Complete 07/29/2023 11:52:14 07/29/2023 11:52:14 07/29/2023 11:52:14 Reg Complete Request 07/29/2023 11:52:14 Reg Bed Request Complete 07/29/2023 11:52:14 07/29/2023 11:52:14 07/29/2023 11:52:14 Bed Assign Complete 07/29/2023 12:01:28 07/29/2023 12:01:28 07/29/2023 12:01:28 Dr Exam Complete 07/29/2023 12:01:28 07/29/2023 12:15:51 07/29/2023 12:15:51 RN Exam Request 07/29/2023 12:01:28 EKG Complete 07/29/2023 12:14:27 07/29/2023 12:19:41 Isolation Screening Request 07/29/2023 12:14:30 Registration Request 07/29/2023 12:15:51 Pending Labs Request 07/29/2023 12:38:15 Lab Complete 07/29/2023 12:38:15 07/29/2023 13:12:12 Patient Care Request 07/29/2023 12:38:15 Pending Labs Complete 07/29/2023 12:49:09 07/29/2023 12:49:09 07/29/2023 13:12:12 Lab Complete 07/29/2023 12:49:09 07/29/2023 12:49:09 07/29/2023 13:12:12 Pending Labs Complete 07/29/2023 13:56:42 07/29/2023 13:56:42 07/29/2023 13:56:43 Pending Labs Complete 07/29/2023 13:58:05 07/29/2023 13:58:05 07/29/2023 13:58:06 Discharge Complete 07/29/2023 14:29:26 07/29/2023 14:41:41 07/29/2023 14:41:41 Transfer Complete 07/29/2023 14:41:41 07/29/2023 14:41:41 07/29/2023 14:41:41 ADDRESS: [address] [place] [id number] PHYS DOC NOTES: MEDICAL INFORMATION: Prescriptions Given: Medications to Continue with No Changes Other Medications aspirin (aspirin 81 mg Oral EC Tab) 1 Tablets By Mouth every day. atorvastatin (atorvastatin 80 mg Tab) 1 Tablets By Mouth every day. Refills: 3. dapagliflozin (dapagliflozin 10 mg oral tablet) 1 Tablets By Mouth every day. Refills: 6. ezetimibe (Zetia 10 mg Tab) 1 Tablets By Mouth every day. Refills: 6. fluconazole (Diflucan 150 mg Tab) 1 Tablets By Mouth Once. Refills: 0. gabapentin (gabapentin 300 mg Cap) 1 Capsules By Mouth once a day (at bedtime). Refills: 3. insulin aspart (NovoLOG FlexPen 100 units/mL injectable solution) check blood sugars AC and Hs and cover 150-200 2u, 201-250 4u, 251-300 6u, 301-350 8u, 351-400 10u and 1unit per 15 carbs. insulin glargine (Basaglar KwikPen 100 units/mL subcutaneous solution) 15 units sub q in the morning and 17 units sub q in the evening. Refills: 3. levothyroxine (levothyroxine 50 mcg (0.05 mg) Tab) 1 Tablets By Mouth every day. Refills: 3. losartan (losartan 50 mg Tab) 1 Tablets By Mouth 2 times a day. Refills: 6. magnesium oxide (magnesium oxide 400 mg Tab) 1 Tablets By Mouth every day. Refills: 3. metformin (metformin 500 mg ER Tab) 1 Tablets By Mouth every day. Refills: 3. metoprolol (metoprolol 100 mg ER Tab) 1 Tablets By Mouth every day. Refills: 6. metoprolol (metoprolol 50 mg ER Tab) 1 Tablets By Mouth every day. Refills: 3. Misc Prescription (Freestyle Lokesh Flash Glucose Monitoring 14 Day System (Sensor)) Freestyle Lokesh 2 Flash Glucose Monitoring 14 Day System (Sensor). Replace sensor every 14 days.. Refills: 11. Misc Prescription (Misc DME Prescription) BD ultra fine mini pen needles 31G X 3/16 Use 6 times a day to inject insulin Dx E10.8. PATIENT EDUCATION INFORMATION: Instructions: Hypertension, Adult Follow up: With: Address: When: Janes Rivera [address] [place] [id number] [phone] [facility] (1) In 3 days 08/01/2023 Comments: Make sure to take your blood pressure twice a day as instructed and when you have symptoms and follow-up with Dr. Rivera. Return to the emergency room if you develop chest pain, dizziness, headache or any new symptoms. With: Address: When: Francisco Mckeon In 3 days DIAGNOSIS: 1:Hypertension [facility] ED Note-Physicianon 07-29-19 ED Note-Physician Basic Information Time Seen: Alise Robin M.D. 07/29/2023 12:15 Chief Complaint to establish care with Dr. Hernadez Sunday, BP was high but added and changed doses on medications. metroprolol was increased from 50mg daily to 100mg daily. has had two days doses. BP at home 173/11 hours after medication History of Present Illness The patient is a 68-year-old female past medical history of hypertension who presented to the emergency room with elevated blood pressure. The patient states she takes metoprolol 100 mg daily and losartan 50 mg twice a day. She states on Sunday she is seen by Dr. Rivera who increased her metoprolol from 50 mg to 100 daily. The patient states she has been checking her blood pressure and this morning her blood pressure was 173/111. She states her blood pressure yesterday was 201 systolic. The patient denies any symptoms. She denies any headache. Denies any dizziness or lightheadedness. The patient denies any blurred vision or double vision. She denies any weakness on extremities. She denies any chest pain, denies any shortness of breath. The patient denies any nausea, denies any vomiting. The patient denies any abdominal pain. The patient states that she has been under some stress because her friend had recently . She denies any other associated symptoms. Review of Systems Additional ROS info: Except as noted in the above Review of Systems and in the History of Present Illness all other systems have been reviewed and are negative or noncontributory. Physical Exam Vitals & Measurements T: 36.6 ?C(Oral) HR: 61(Monitored) RR: 18 BP: 145/80 SpO2: 100% HT: 154 cm WT: 63.5 kg BMI: 26.78 General: alert, no acute distress Skin: warm, dry Head: no trauma, normocephalic Neck: Trachea midline, Eye: normal conjunctiva, sclera clear, ENMT: Oral mucosa moist, Cardiovascular: regular rate and rhythm, Respiratory: Lungs CTA, respirations non labored, breath sounds equal, Gastrointestinal: soft, non distended, no tenderness, no guarding, Extremities: no deformity, no trauma Neurological: Alert and oriented, motor strength equal & normal bilaterally, sensation equal & normal bilaterally, speech normal, no focal neuro deficits Psychiatric: cooperative, affect appropriate for age, Medical Decision Making MEDICAL DECISION MAKING Number and Complexity of Problems Differential Diagnosis: [] [facility] Data External documents reviewed: [] My EKG interpretation: [] My CT interpretation: [] My X-ray interpretation: [] My Ultrasound interpretation: [] Decision rules/scores evaluated: [] Discussed with: [] Treatment and Disposition ED Course: The patient presented with elevated blood pressure. She is asymptomatic. Blood work reviewed unremarkable. The patient was monitored in the emergency room and her blood pressure came down on its own. I do not believe that we need to change her blood pressure medication at this time as her blood pressure has come down. Will discharge patient home follow-up with Dr. Rivera. She was instructed to take her blood pressure twice a day and anytime that she has symptoms and if she has any symptoms to return to the emergency room. The patient and her are agreeable with care of plan. Shared decision making: [] Code status: [] Assessment/Plan 1. Hypertension (I10: Essential (primary) hypertension) Orders: Basic Metabolic Panel CBC w/ Auto Diff eGFR Extra Blue Tube Extra SST Tube Hepatic Function Panel Saline Lock Insert Troponin 0 Hr. Troponin 1 Hr. Troponin 3 Hr. Troponin 6 Hr. Disposition Plan Patient Discharge Condition Stable, improved Discharge Disposition Discharge home Discharge Prescription List Prescriptions No active prescription medications Follow-up With When Contact Information Janes Rivera In 3 days 08/01/2023 EDT [address] [place] [address]- [phone] [facility] (1) Additional Instructions: Make sure to take your blood pressure twice a day as instructed and when you have symptoms and follow-up with Dr. Rivera. Return to the emergency room if you develop chest pain, dizziness, headache or any new symptoms. Francisco Mckeon In 3 days Additional Instructions: Patient Education Hypertension, Adult Problem List/Past Medical History Ongoing Acute URI Aorto-iliac atherosclerosis Benign neoplasm of cerebral meninges BPPV (benign paroxysmal positional vertigo) CHF (congestive heart failure) Colon cancer screening Diabetic neuropathy DM type 2 causing vascular disease GERD without esophagitis HTN (hypertension) Hyperlipidemia, unspecified Hypertensive heart disease with CHF Injury of left foot Long-term insulin use Total bilirubin, elevated Type 2 diabetes mellitus with hyperlipidemia Historical No qualifying data Procedure/Surgical History Open heart surgery (2020), Cataract extraction and insertion of intraocular lens (07/23/2019), Cholec (more content not included)... [facility] Comment on above: Result Comment: Elec tronically Signed By: Sharda Joaquin, Alise Oakes.elliot\Date and Time Signed: 07/29/23 15:34 EDT ED Patient Education Noteon 07-29-2023 ED Patient Education Note Cardiovascular Hypertension, Adult High blood pressure (hypertension) is when the force of blood pumping through the arteries is too strong. The arteries are the blood vessels that carry blood from the heart throughout the body. Hypertension forces the heart to work harder to pump blood and may cause arteries to become narrow or stiff. Untreated or uncontrolled hypertension can lead to a heart attack, heart failure, a stroke, kidney disease, and other problems. A blood pressure reading consists of a higher number over a lower number. Ideally, your blood pressure should be below 120/80. The first ( top ) number is called the systolic pressure. It is a measure of the pressure in your arteries as your heart beats. The second ( bottom ) number is called the diastolic pressure. It is a measure of the pressure in your arteries as the heart relaxes. What are the causes? The exact cause of this condition is not known. There are some conditions that result in high blood pressure. What increases the risk? Certain factors may make you more likely to develop high blood pressure. Some of these risk factors are under your control, including: ? Smoking. ? Not getting enough exercise or physical activity. ? Being overweight. ? Having too much fat, sugar, calories, or salt (sodium) in your diet. ? Drinking too much alcohol. Other risk factors include: ? Having a personal history of heart disease, diabetes, high cholesterol, or kidney disease. ? Stress. ? Having a family history of high blood pressure and high cholesterol. ? Having obstructive sleep apnea. ? Age. The risk increases with age. What are the signs or symptoms? High blood pressure may not cause symptoms. Very high blood pressure (hypertensive crisis) may cause: ? Headache. ? Fast or irregular heartbeats (palpitations). ? Shortness of breath. ? Nosebleed. ? Nausea and vomiting. ? Vision changes. ? Severe chest pain, dizziness, and seizures. How is this diagnosed? This condition is diagnosed by measuring your blood pressure while you are seated, with your arm resting on a flat surface, your legs uncrossed, and your feet flat on the floor. The cuff of the blood pressure monitor will be placed directly against the skin of your upper arm at the level of your heart. Blood pressure should be measured at least twice using the same arm. Certain conditions can cause a difference in blood pressure between your right and left arms. If you have a high blood pressure reading during one visit or you have normal blood pressure with other risk factors, you may be asked to: ? Return on a different day to have your blood pressure checked again. ? Monitor your blood pressure at home for 1 week or longer. If you are diagnosed with hypertension, you may have other blood or imaging tests to help your health care provider understand your overall risk for other conditions. How is this treated? This condition is treated by making healthy lifestyle changes, such as eating healthy foods, exercising more, and reducing your alcohol intake. You may be referred for counseling on a healthy diet and physical activity. Your health care provider may prescribe medicine if lifestyle changes are not enough to get your blood pressure under control and if: ? Your systolic blood pressure is above 130. ? Your diastolic blood pressure is above 80. Your personal target blood pressure may vary depending on your medical conditions, your age, and other factors. Follow these instructions at home: Eating and drinking ? Eat a diet that is high in fiber and potassium, and low in sodium, added sugar, and fat. An example of this eating plan is called the DASH diet. DASH stands for Dietary Approaches to Stop Hypertension. To eat this way: ? Eat plenty of fresh fruits and vegetables. Try to fill one half of your plate at each meal with fruits and vegetables. ? Eat whole grains, such as whole-wheat pasta, brown rice, or whole-grain bread. Fill about one fourth of your plate with whole grains. ? Eat or drink low-fat dairy products, such as skim milk or low-fat yogurt. ? Avoid fatty cuts of meat, processed or cured meats, and poultry with skin. Fill about one fourth of your plate with lean proteins, such as fish, chicken without skin, beans, eggs, or tofu. ? Avoid pre-made and processed foods. These tend to be higher in sodium, added sugar, and fat. ? Reduce your daily sodium intake. Many people with hypertension should eat less than 1,500 mg of sodium a day. ? Do not drink alcohol if: ? Your health care provider tells you not to drink. ? You are , may be , or are planning to become . ? If you drink alcohol: ? Limit how much you have to: ? 0?1 drink a day for women. ? 0?2 drinks a day for men. ? Know how much alcohol is in your drink. In the [place] one drink equals one 12 oz bottle of beer (355 mL), one 5 oz glass of wine (148 mL), or one 1? oz glass (more content not included)... [facility] ED Patient Summaryon 024 ED Patient Summary [address] [address] Patient Discharge Instructions Person Information Name: RAFI ROPER Age: 68 Years Arrival Date: 07/29/2023 11:47:41 Discharge Diagnosis: 1:Hypertension Primary Care Physician: Francisco Mckeon MD Provider Information Primary Provider: Alise Robin M.D. Advanced Lead Solutions Architect:None The exam and treatment you received in the Emergency Department were for an urgent problem and are not intended as complete care. It is important that you follow up with a doctor, nurse practitioner, or physician?s anesthesiologist assistant certified for ongoing care. If your symptoms become worse or you do not improve as expected and you are unable to reach your usual health care provider, you should return to the Emergency Department. We are available 24 hours a day. RAFI ROPER has been given the following list of patient education materials, prescriptions and follow-up instructions: Follow-up Instructions: With: Address: When: Janes Rivera [address] [place], [place] [id number] [phone] Business (1) In 3 days 08/01/2023 Comments: Make sure to take your blood pressure twice a day as instructed and when you have symptoms and follow-up with Dr. Rivera. Return to the emergency room if you develop chest pain, dizziness, headache or any new symptoms. With: Address: When: Francisco Mckeon In 3 days In the event that this physician does not participate in your insurance network, please consult with your insurance company to find a nearby participating provider. Patient Education Materials: Hypertension, Adult A MESSAGE TO ALL PATIENTS REGARDING OPIOIDS PRESCRIPTION OPIOIDS: WHAT YOU NEED TO KNOW Prescription opioids can be used to help relieve lilwuqvv-fo-fzfpev pain and are often prescribed following a surgery or injury, or for certain health conditions. These medications can be an important part of the treatment but also come with serious risks. It is important to work with your healthcare provider to make sure you are getting the safest, most effective care. WHAT ARE THE RISKS AND SIDE EFFECTS OF OPIOID USE? Prescription opioids carry serious risks of addiction and overdose, especially with prolonged use. An opioid overdose, often marked by slowed breathing, can cause sudden . The use of prescription opioids can have a number of side effects as well, even when taken as directed: ? Tolerance?meaning you might need to take more of the medication for the same pain relief ? Physical dependence?meaning you have symptoms of withdrawal when a medication is stopped ? Increased sensitivity to pain ? Constipation ? Nausea, vomiting, and dry mouth ? Sleepiness and dizziness ? Confusion ? Depression ? Low levels of testosterone that can result in lower sex drive, energy, and strength ? Itching and sweating RISKS ARE GREATER WITH: ? History of drug misuse, substance use disorder, or overdose ? Mental health conditions (such as depression or anxiety) ? Sleep apnea ? Older age (65 years and older) ? Avoid alcohol while taking prescription opioids. Also, unless specifically advised by your health care provider, medications to avoid include: ? Benzodiazepines (such as Xanax or Valium) ? Muscle relaxants (such as Soma or Flexeril) ? Hypnotics (such as Ambien or Lunesta) ? Other prescription opioids KNOW YOUR OPTIONS Talk to your health care provider about ways to manage your pain that don?t involve prescription opioids. Some of these options may actually work better and have fewer risks and side effects. Options may include: ? Pain relievers such as acetaminophen, ibuprofen, and naproxen ? Some medication that are also used for depression or seizures ? Physical therapy and exercise ? Cognitive behavioral therapy, a psychological, goal-directed approach, in which patients learn how to modify physical, behavioral, and emotional triggers of pain and stress. IF YOU ARE PRESCRIBED OPIOIDS FOR PAIN: ? Never take opioids in greater amounts or more often than prescribed. ? Follow up with your primary health care provider. o Work together to create a plan on how to manage your pain. o Talk about ways to help manage your pain that don?t involve prescription opioids. o Talk about any and all concerns and side effects. ? Help prevent misuse and abuse o Never sell or share prescription opioids. o Never use another person?s prescription opioids. ? Store prescription opioids in a secure place and out of reach of others (this may include visitors, children, friends, and family). ? Safely dispose of unused prescription opioids: Find your community drug take-back program or your pharmacy mail-back program, or flush them down the toilet, following guidance from the Food and Drug Administration (www.fda.gov/Drugs/Res ourcesForYou). ? Visit www.cdc.gov/drugo (more content not included)... [facility] HEMATOLOGYOrdered By: SYSTEM SYSTEM on 07-29-2023 Basophils/100 WBC (Bld) 0.7 % Normal 0.0 - 2.0 % Remisol Heme Basophils/Leukocytes Auto (Bld) [Pure # fraction] 0.0 E9/L Normal 0.0 - 0.2 E9/L Remisol Heme Eosinophils (Bld) [#/Vol] 0.2 E9/L Normal 0.0 - 0.5 E9/L Remisol Heme Eosinophils/100 WBC (Bld) 4.1 % Normal 0.0 - 8.0 % Remisol Heme Erythrocyte distribution width (RBC) [Ratio] 13.3 % Normal 10.9 - 14.2 % Remisol Heme Hematocrit (Bld) [Volume fraction] 40.9 % Normal 34.0 - 46.0 % Remisol Heme Hemoglobin (Bld) [Mass/Vol] 14.1 g/dL Normal 12.0 - 16.0 gm/dL Remisol Heme Lymphocytes (Bld) [#/Vol] 1.3 E9/L Normal 1.0 - 4.0 E9/L Remisol Heme Lymphocytes/100 WBC (Bld) 21.5 % Normal 14.0 - 50.0 % Remisol Heme MCH (RBC) [Entitic mass] 31.1 pg Normal 27.0 - 34.0 pg Remisol Heme MCHC (RBC) [Mass/Vol] 34.5 g/dL Normal 31.4 - 36.0 gm/dL Remisol Heme MCV (RBC) [Entitic vol] 90.1 fL Normal 80.0 - 100.0 fL Remisol Heme Monocytes (Bld) [#/Vol] 0.5 E9/L Normal 0.2 - 1.0 E9/L Remisol Heme Monocytes/100 WBC (Bld) 9.1 % Normal 4.0 - 14.0 % Remisol Heme Neutrophils (Bld) [#/Vol] 3.8 E9/L Normal 2.0 - 7.5 E9/L Remisol Heme Neutrophils/100 WBC (Bld) 64.6 % Normal 36.0 - 75.0 % Remisol Heme Platelet mean volume (Bld) [Entitic vol] 8.1 fL Normal 6.4 - 10.8 fL Remisol Heme Platelets (Bld) [#/Vol] 168.0 E9/L Normal 150.0 - 500.0 E9/L Remisol Heme RBC (Bld) [#/Vol] 4.5 E12/L Normal 4.3 - 5.9 E12/L Remisol Heme WBC corrected for nucl RBC Auto (Bld) [#/Vol] 5.9 E9/L Normal 4.0 - 11.0 E9/L Remisol Heme Hep Func Panelon 07-29-2023 Albumin [Mass/Vol] 4.1 g/dL Normal 3.3-5.0 [facility] Comment on above: Performed By: #### 1 [id number], [id number], [id number], 3127939, [id number] ####[facility] [address] [place] [address] Albumin/Globulin (S) [Mass conc ratio] 2.0 Normal 1.1-2.2 [facility] Comment on above: Performed By: #### 1 [id number], [id number], [id number], 0687584, [id number] ####[facility] [address] [place] [address] ALP [Catalytic activity/Vol] 75 Int._Unit/L Normal 21-98 [facility] Comment on above: Performed By: #### 1 [id number], [id number], 8519415, 3316526, 5834510 ####[facility] [address] [place] [address] ALT No additional P-5'-P [Catalytic activity/Vol] 46 Int._Unit/L Normal 6-46 [facility] Comment on above: Performed By: #### 1 [id number], [id number], 0097405, 9924425, 7202234 ####[address] [address] AST [Catalytic activity/Vol] 28 Int._Unit/L Normal 5-43 [facility] Comment on above: Performed By: #### 1 [id number], [id number], 7748046, 8049336, 9108189 ####[place] [address] Bilirubin [Mass/Vol] 1.6 mg/dL High 0.0-1.1 [facility] Comment on above: Performed By: #### 1 [id number], 75670476, 8419335, 3721685, 4465263 ####[place] [address] Bilirubin.direct [Mass/Vol] 0.1 mg/dL Normal 0.0-0.4 [facility] Comment on above: Performed By: #### 1 [id number], 63889778, 8194148, 8472489, 9792220 ####[place] [address] Bilirubin.indirect [Mass or moles/Vol] 1.5 mg/dL High 0.1-0.9 [facility] Comment on above: Performed By: #### 1 [id number], 81551974, 8013405, 8390696, 0688861 ####[address] [address] Globulin (S) [Mass/Vol] 2.1 g/dL Normal 1.4-4.0 [facility] Comment on above: Performed By: #### 1 [id number], 92459315, 2582616, 1630931, 0728875 ####[address] [address] Protein [Mass/Vol] 6.2 g/dL Normal 6.0-7.8 [facility] Comment on above: Performed By: #### 1 [id number], 04290806, 7579711, 4715032, 8847684 ####[facility] [address] [place] [address] Troponin 0 Hr.on 07-29-2023 Troponin 3.70 pg/mL Low 10.10-27.10 [facility] Comment on above: Result Comment: The 95% CI (Confidence Interval) PPV (Positive Predictive Value) for myocardial infarction in females is 38 pg/mL, in males 51 pg/mL. The results should be used in conjunction with clinical conditions of myocardial infarction. (Access High Sensitivity Troponin I Instructions For Use, Health Plotter, October 2017) Performed By: #### 1 [id number], [id number], 3559600, 2797532, 7595957 ####[place] [address] [place] [address] Troponin 1 Hr.on 07-29-2023 Troponin 4.60 pg/mL Low 10.10-27.10 [facility] Comment on above: Result Comment: The 95% CI (Confidence Interval) PPV (Positive Predictive Value) for myocardial infarction in females is 38 pg/mL, in males 51 pg/mL. The results should be used in conjunction with clinical conditions of myocardial infarction. (Access High Sensitivity Troponin I Instructions For Use, Health Plotter, October 2017) Performed By: #### 1 [id number] ####[place] [address] [place] [address] eGFRon 07-29-2023 eGFR 79 mL/min/1.73 m2 Normal >=59 [facility] Comment on above: Order Comment: Order added by Discern Expert. Performed By: #### 1 [id number], [id number], 3137941, 4035425, 3781192 ####[place] [address] [place] [address] Consent for Treatmenton 07-17 Consent for Treatment [id number]#1.0 0TIFF [facility] ECG 12-Leadon 07-27-2023 ECG 12-Lead [id number]#1.0 0TIFF Normal [facility] Heart and Vascular Office/Cl inic Noteon 07-27-2023 Heart and Vascular Office/Clinic Note Chief Complaint here to establish care - HTN History of Present Illness The patient is a very pleasant 68-year-old female who presents for establishment. She does have a past medical history of diabetes mellitus type II with insulin requirements, hypertension, dyslipidemia, coronary artery disease with history of coronary artery bypass grafting surgery in 2020 at [facility]. At that time, she presented with non-ST elevation myocardial infarction and was found to have a complex disease of the circumflex artery, moderate to severe disease of the mid LAD, diagonal artery. Attempt at revascularization of circumflex artery was unsuccessful. Right coronary artery was nonobstructive. She had normal left ventricular ejection fraction at the index presentation. Details of coronary artery bypass graft surgery are unknown. She presents totally asymptomatic from the cardiovascular perspective. Specifically, reports no chest pain, shortness of breath, dizziness or lightheadedness, palpitations, syncope or presyncope. She states compliance with current treatment plan. Denies any side effects. She had a UTI recently. Review of Systems ROS - Provider Constitutional: no fever, no chills, no fatigue Skin:no rash, no lesions ENMT: no ear pain, no sore throat, no congestion. Respiratory: no shortness of breath, no cough, no wheezing. Cardiovascular: no chest pain, no palpitations, no edema. Gastrointestinal: no nausea, no vomiting, no diarrhea, no GI bleeding. Genitourinary: yes dysuria, no frequencyno hematuria Musculoskeletal: no back pain, no trauma. Neurologic: no headache, no dizziness, no numbness, no weakness. Psychiatric: no sleeping problems, no irritability, no mood swings/depression. Heme/Lymph: no bleeding tendency, no bruising tendency, no petechiae, Allergy/Immuno logic: no seasonal allergies, no food allergies, no recurrent infections Physical Exam Vitals & Measurements HR: 81(Peripheral) BP: 180/100 SpO2: 98% HT: 61 in HT: 154 cm WT: 63.3 kg WT: 139.26 lb BMI: 26.69 General: alert, no acute distress Neck: Supple, noJVD nocarotid bruit Cardiovascular: regular rate and rhythm, no murmur normal peripheral perfusion Respiratory: Lungs CTAB, respirations non labored Extremities: no edema left lower extremity. no edema right lower extremity Neurological: oriented x 4, LOC appropriate for age, speech normal Skin: Warm, dry, intact- no rash or concerning lesions Procedure ECG today showed sinus rhythm, no acute ST or T wave deviations. Assessment/Plan The patient is doing well from the perspective of coronary artery disease. She reports no angina. Will continue guideline recommended medical medical therapy with beta-temitope, aspirin, statin. Blood pressure appears to be substantially elevated. I am going to increase metoprolol succinate to 100 mg daily. Losartan schedule will be changed to 50 mg twice daily as per patient's request. The patient was suggested to stop by the clinic in about 2 to 3 weeks to recheck her blood pressure. LDL appears to be suboptimally controlled, therefore I will take a liberty to start ezetimibe 10 mg nightly. Fasting lipid profile to be rechecked in about 3 to 4 weeks. In the setting of underlying diabetes and coronary artery disease, the patient would benefit from SGLT2 inhibitor, therefore I will start dapagliflozin 10 mg daily. We will try to obtain CABG report. Follow-up in 6 months, earlier if clinically indicated 1. CAD in iqugmiut artery (I25.10: Atherosclerotic heart disease of [place]qu[place] coronary artery without angina pectoris) 2. Dyslipidemia (E78.5: Hyperlipidemia, unspecified) 3. DM type 2 causing vascular disease (E11.59: Type 2 diabetes mellitus with other circulatory complications) HTN (hypertension) (I10: Essential (primary) hypertension) Ordered: ECG 12 Lead Adult Lipid Panel Follow-up No qualifying data available 6 months Problem List/Past Medical History Ongoing Acute URI Aorto-iliac atherosclerosis Benign neoplasm of cerebral meninges BPPV (benign paroxysmal positional vertigo) CHF (congestive heart failure) Colon cancer screening Diabetic neuropathy DM type 2 causing vascular disease GERD without esophagitis HTN (hypertension) Hyperlipidemia, unspecified Hypertensive heart disease with CHF Injury of left foot Long-term insulin use Total bilirubin, elevated Type 2 diabetes mellitus with hyperlipidemia Historical No qualifying data Procedure/Surgical History Open heart surgery (2020), Cataract extraction and insertion of intraocular lens (07/23/2019), Cholecystectomy, Colonoscopy, Tooth extraction, Tubal ligation. Medications aspirin 81 mg Oral EC Tab, 81 mg= 1 tab(s), Oral, Daily atorvastatin 80 mg Tab, 80 mg= 1 tab(s), Oral, Daily, 3 refills Basaglar KwikPen 100 units/mL subcutaneous solution, See Instructions, 3 refills Diflucan 150 mg Tab, 150 mg= 1 tab(s), Oral, Once Freestyle Lokesh F (more content not included)... [facility] Comment on above: Result Comment: Elec tronically Signed By: Janes Rivera MD\.br\Date and Time Signed: 07/27/23 11:07 EDT Physician Orderon 07-27-2023 Physician Order [id number] 0TIFF [facility] Ambulatory Visit Summaryon 0 07-16-2023 Ambulatory Visit Summary RAFI ROPER :1955 Visit Date:07/16/2023 Ambulatory Visit Instructions Your Care Team Attending Physician - Francisco Mckeon MD Primary Care Physician - Francisco Mckeon MD This Is Your Medications List Misc Prescription (Freestyle Lokesh Flash Glucose Monitoring 14 Day System (Sensor)) Misc Prescription (Misc DME Prescription) aspirin (aspirin 81 mg Oral EC Tab) atorvastatin (atorvastatin 80 mg Tab) gabapentin (gabapentin 300 mg Cap) insulin aspart (NovoLOG FlexPen 100 units/mL injectable solution) insulin glargine (Basaglar KwikPen 100 units/mL subcutaneous solution) levothyroxine (levothyroxine 50 mcg (0.05 mg) Tab) losartan (losartan 100 mg Tab) magnesium oxide (magnesium oxide 400 mg Tab) metformin (metformin 500 mg ER Tab) metoprolol (metoprolol 50 mg ER Tab) Procedures Performed Open heart surgery (2020), Cataract extraction and insertion of intraocular lens (07/23/2019), Cholecystectomy, Colonoscopy, Tooth extraction, Tubal ligation. Discharge Vitals Temperature (Oral) 36.8 ?C Heart Rate (Peripheral) 94 Respiratory Rate 16 Blood Pressure 122/74 Height 154.4 cm Height 61 in Weight 62.8 kg Weight 138.16 lb BMI 26.34 What to do next Scheduled Follow-Up Appointments Sunday 2:15 PM EDT With: Janes Rivera MD Where: [facility] Sunday 9:15 AM EDT With: Mervin SHANNON, Francisco Terrell Where: [facility] Medicine Jose Martin Normal [facility] Medicine Office/Clini c Noteon 07-16-2023 Family Medicine Office/Clinic Note HPI Staff Rafi is a 68 year old female presenting for sick visit Acute: deep cough and headache, tested covid 07/15 negative _Respiratory C/O: Duration: sunday ( 4 days ago) Body aches: no Chest congestion: no Chills: no Cough: yes deep non productive Ear complaints: no Eye itching/watering: yes itchy she ? allergies Fever: no Headache: yes bad one when she woke up this morning it's resolving Nasal congestion: no Nasal discharge: no Poor appetite: no Reduced activity: yes she's tired Sinus pain/pressure: yes a little under her eyes Sneezing: yes Sputum production: no Wheezing: yes she feels it when she breathes Ill contacts: no but she's been up to [facility] often so may be exposed to something Remedies tried: zyrtex last evening but was hesitant to do that _ _ questions/concerns: last labs she was called and told GI labs elevated has she been sick, and she'd like to know what she can do if anything for these abnormal labs ( one of her LFTs was elevated) History of Present Illness - Here for a deep cough. - 5 days - Wet Productive. - Eyes itch - BS have been good. Physical Exam Vitals & Measurements T: 36.8 ?C(Oral) HR: 94(Peripheral) RR: 16 BP: 122/74 SpO2: 95% HT: 61 in HT: 154.4 cm WT: 62.8 kg WT: 138.16 lb BMI: 26.34 General: alert, no acute distress ENMT: oral mucosa moist, Cardiovascular: regular rate and rhythm, normal peripheral perfusion Respiratory: Lungs CTA, respirations non labored, Wheezing noted in the R lower lung field Extremities: no deformity, no trauma Neurological: oriented x 4, LOC appropriate for age, CN II-XII intact, motor strength equal & normal bilaterally, speech normal Abdomen: Soft, Nontender, Non-distended, + BS Assessment/Plan 1. Acute URI (J06.9: Acute upper respiratory infection, unspecified) - Will start the patient on Medrol and Zpack as patient has been exposed to multiple sick people. - Follow up PRN - Zyrtec and Pataday for allergies. 2. DM type 2 causing vascular disease (E11.59: Type 2 diabetes mellitus with other circulatory complications) - Monitor BS closely with steroids. - Follow up PRN 3. BMI 26.0-26.9,adult (Z68.26: Body mass index [BMI] 26.0-26.9, adult) - BMI education uploaded Ordered: Body Mass Index (BMI) documented 3008F Current tobacco non-user 1036F Depression Screening Negative 3352F Influenza immunization administered or previously received 4274F Most recent diastolic blood pressure <80 mm Hg 3078F Patient screen for fall risk: no falls in last year or 1 fall with no injury in last year 1101F Systolic BP <130 mm Hg (Most Recent) 3074F 4. Over weight (E66.3: Overweight) Diet and exercise Ordered: Body Mass Index (BMI) documented 3008F Current tobacco non-user 1036F Depression Screening Negative 3352F Influenza immunization administered or previously received 4274F Most recent diastolic blood pressure <80 mm Hg 3078F Patient screen for fall risk: no falls in last year or 1 fall with no injury in last year 1101F Systolic BP <130 mm Hg (Most Recent) 3074F 5. Nonsmoker (Z78.9: Other specified health status) - Please continue to not smoke. Ordered: Body Mass Index (BMI) documented 3008F Current tobacco non-user 1036F Depression Screening Negative 3352F Influenza immunization administered or previously received 4274F Most recent diastolic blood pressure <80 mm Hg 3078F Patient screen for fall risk: no falls in last year or 1 fall with no injury in last year 1101F Systolic BP <130 mm Hg (Most Recent) 3074F Orders: azithromycin, = 1 packet(s), Oral, As Directed, as directed on package labeling, X 5 day(s), # 6 tab(s), Refills(s) 0, Pharmacy: [facility]/pharmacy #[id number], 154.4, cm, 07/16/23 8:58:00 EDT, Height/Length Dosing, 62.8, kg, 07/16/23 8:58:00 EDT, Weight Dosing methylPREDNISolone, = 1 packet(s), Oral, As Directed, as directed on package labeling, X 6 day(s), # 21 tab(s), Refills(s) 0, Pharmacy: [facility]/pharmacy #[id number], 154.4, cm, 07/16/23 8:58:00 EDT, Height/Length Dosing, 62.8, kg, 07/16/23 8:58:00 EDT, Weight Dosing Follow-up No qualifying data available Patient Education BMI for Adults Problem List/Past Medical History Ongoing Acute URI Aorto-iliac atherosclerosis Benign neoplasm of cerebral meninges BPPV (benign paroxysmal positional vertigo) CHF (congestive heart failure) Colon cancer screening Diabetic neuropathy DM type 2 causing vascular disease GERD without esophagitis HTN (hypertension) Hyperlipidemia, unspecified Hypertensive heart disease with CHF Injury of left foot Long-term insulin use Total bilirubin, elevated Type 2 diabetes mellitus with hyperlipidemia Historical No qualifying data Procedure/Surgical History Open heart surgery (2020), Cataract extraction and insertion of intraocular lens (07/23/2019), Cholecystectomy, Colonoscopy, Tooth extraction, Tubal ligation. Medications aspirin 81 mg Oral EC Tab, 81 mg= 1 tab(s), Oral, Ada (more content not included)... Normal [facility] Comment on above: Result Comment: Elec tronically Signed By: Mervin SHANNON, Francisco Terrell\.br\Date and Time Signed: 07/16/23 09:18 EDT Patient Educationon 07-16-19 Patient Education Nutrition BMI for Adults What is BMI? Body mass index (BMI) is a number that is calculated from a person's weight and height. BMI can help estimate how much of a person's weight is composed of fat. BMI does not measure body fat directly. Rather, it is an alternative to procedures that directly measure body fat, which can be difficult and expensive. BMI can help identify people who may be at higher risk for certain medical problems. What are BMI measurements used for? BMI is used as a screening tool to identify possible weight problems. It helps determine whether a person is obese, overweight, a healthy weight, or underweight. BMI is useful for: ? Identifying a weight problem that may be related to a medical condition or may increase the risk for medical problems. ? Promoting changes, such as changes in diet and exercise, to help reach a healthy weight. BMI screening can be repeated to see if these changes are working. How is BMI calculated? BMI involves measuring your weight in relation to your height. Both height and weight are measured, and the BMI is calculated from those numbers. This can be done either in [place] ([place] or metric measurements. Note that charts and online BMI calculators are available to help you find your BMI quickly and easily without having to do these calculations yourself. To calculate your BMI in Chinese ([place] measurements: 1. Measure your weight in pounds (lb). 2. Multiply the number of pounds by 703. ? For example, for a person who weighs 180 lb, multiply that number by 703, which equals 126,540. 3. Measure your height in inches. Then multiply that number by itself to get a measurement called inches squared. ? For example, for a person who is 70 inches tall, the inches squared measurement is 70 inches x 70 inches, which equals 4,900 inches squared. 4. Divide the total from step 2 (number of lb x 703) by the total from step 3 (inches squared): 126,540 ? 4,900 = 25.8. This is your BMI. To calculate your BMI in metric measurements: 1. Measure your weight in kilograms (kg). 2. Measure your height in meters (m). Then multiply that number by itself to get a measurement called meters squared. ? For example, for a person who is 1.75 m tall, the meters squared measurement is 1.75 m x 1.75 m, which is equal to 3.1 meters squared. 3. Divide the number of kilograms (your weight) by the meters squared number. In this example: 70 ? 3.1 = 22.6. This is your BMI. What do the results mean? BMI charts are used to identify whether you are underweight, normal weight, overweight, or obese. The following guidelines will be used: ? Underweight: BMI less than 18.5. ? Normal weight: BMI between 18.5 and 24.9. ? Overweight: BMI between 25 and 29.9. ? Obese: BMI of 30 or above. Keep these notes in mind: ? Weight includes both fat and muscle, so someone with a muscular build, such as an athlete, may have a BMI that is higher than 24.9. In cases like these, BMI is not an accurate measure of body fat. ? To determine if excess body fat is the cause of a BMI of 25 or higher, further assessments may need to be done by a health care provider. ? BMI is usually interpreted in the same way for men and women. Where to find more information For more information about BMI, including tools to quickly calculate your BMI, go to these websites: ? Centers for Disease Control and Prevention: www.cdc.gov ? [place] [employer]: www.heart.org ? National Heart, Lung, and Blood [place]: www.nhlbi.nih.gov Summary ? Body mass index (BMI) is a number that is calculated from a person's weight and height. ? BMI may help estimate how much of a person's weight is composed of fat. BMI can help identify those who may be at higher risk for certain medical problems. ? BMI can be measured using Chinese measurements or metric measurements. ? BMI charts are used to identify whether you are underweight, normal weight, overweight, or obese. This information is not intended to replace advice given to you by your health care provider. Make sure you discuss any questions you have with your health care provider. Document Revised: 11/26/2019 Document Reviewed: 10/03/2019 [employer] Patient Education ? 2022 [employer] [place] Auth for Release of Medical Recordson 07-09-2023 Auth for Release of Medical Records [id number] 0TIFF [place] Ambulatory Visit Summaryon 0 07-03-2023 Ambulatory Visit Summary RAFI ROPER :1955 Visit Date:07/03/2023 Ambulatory Visit Instructions Your Diagnosis HTN (hypertension) Type 2 diabetes mellitus with hyperlipidemia Diabetic neuropathy DM type 2 causing vascular disease Colon cancer screening Paroxysmal atrial fibrillation Hyperlipidemia, unspecified BMI 26.0-26.9,adult Overweight Nonsmoker Your Care Team Attending Physician - Francisco Mckeon MD Primary Care Physician - Francisco Mckeon MD This Is Your Medications List Misc Prescription (Freestyle Lokesh Flash Glucose Monitoring 14 Day System (Sensor)) losartan (losartan 100 mg Tab) Contact prescribing physician if questions or concerns Misc Prescription (Misc DME Prescription) aspirin (aspirin 81 mg Oral EC Tab) atorvastatin (atorvastatin 80 mg Tab) gabapentin (gabapentin 300 mg Cap) insulin aspart (NovoLOG FlexPen 100 units/mL injectable solution) insulin glargine (Basaglar KwikPen 100 units/mL subcutaneous solution) levothyroxine (levothyroxine 50 mcg (0.05 mg) Tab) magnesium oxide (magnesium oxide 400 mg Tab) metformin (metformin 500 mg ER Tab) metoprolol (metoprolol 50 mg ER Tab) Procedures Performed Open heart surgery (2020), Cataract extraction and insertion of intraocular lens (07/23/2019), Cholecystectomy, Colonoscopy, Tooth extraction, Tubal ligation. Discharge Vitals Temperature (Oral) 37.2 ?C Heart Rate (Peripheral) 82 Respiratory Rate 16 Blood Pressure 120/76 Height 154.4 cm Height 61 in Weight 63.15 kg Weight 138.93 lb BMI 26.49 What to do next Scheduled Follow-Up Appointments Sunday 9:15 AM EDT With: Mervin SHANNON, Francisco Terrell Where: [facility] Family Medicine Jose Martin Normal [facility] CBC w/ Auto Diffon 4 Basophils/100 WBC (Bld) 0.9 % Normal 0.0-2.0 [facility] Comment on above: Performed By: #### 2 547727, [id number], [id number], 1251010, 2088592 #### [facility] [address] [place] [address] Basophils/Leukocytes Auto (Bld) [Pure # fraction] 0.0 E9/L Normal 0.0-0.2 [facility] Comment on above: Performed By: #### 2 564031, 65991252, 405414742, 1920043, 7757893 #### [facility] [address] [place] [address] Eosinophils (Bld) [#/Vol] 0.2 E9/L Normal 0.0-0.5 [facility] Comment on above: Performed By: #### 2 742645, 90554521, 988799524, 0126860, 9399607 #### [facility] [address] [place] [address] Eosinophils/100 WBC (Bld) 4.8 % Normal 0.0-8.0 [facility] Comment on above: Performed By: #### 2 217542, 46765456, 229744203, 6237134, 9122658 #### [facility] [address] [place] [address] Erythrocyte distribution width (RBC) [Ratio] 14.1 % Normal 10.9-14.2 [facility] Comment on above: Performed By: #### 2 319601, 96372396, 675462980, 9599347, 5549850 #### [facility] [address] [place] [address] Hematocrit (Bld) [Volume fraction] 40.0 % Normal 34.0-46.0 [facility] Comment on above: Performed By: #### 2 904896, 80223844, 583276416, 6254591, 5732165 #### [facility] [address] [place] [address] Hemoglobin (Bld) [Mass/Vol] 13.3 g/dL Normal 12.0-16.0 [facility] Comment on above: Performed By: #### 2 246737, 99033714, 725473298, 1841645, 9415978 #### [facility] [address] [place] [address] Lymphocytes (Bld) [#/Vol] 1.1 E9/L Normal 1.0-4.0 [facility] Comment on above: Performed By: #### 2 649699, 11668832, 366590058, 6094240, 2705707 #### [facility] [address] [place] [address] Lymphocytes/100 WBC (Bld) 20.9 % Normal 14.0-50.0 [facility] Comment on above: Performed By: #### 2 646297, 93694556, 710463638, 0269540, 1536260 #### [facility] [address] [place] [address] MCH (RBC) [Entitic mass] 30.2 pg Normal 27.0-34.0 [facility] Comment on above: Performed By: #### 2 034113, 34754613, 310061229, 0492252, 3952806 #### [facility] [address] [place] [address] MCHC (RBC) [Mass/Vol] 33.3 g/dL Normal 31.4-36.0 [facility] Comment on above: Performed By: #### 2 677357, 32436469, 168530596, 8823708, 6611088 #### [facility] [address] [place] [address] MCV (RBC) [Entitic vol] 90.7 fL Normal 80.0-100.0 [facility] Comment on above: Performed By: #### 2 680085, 93274406, 894477804, 0086872, 9916188 #### [facility] [address] [place], [place] [address] Monocytes (Bld) [#/Vol] 0.4 E9/L Normal 0.2-1.0 [facility] Comment on above: Performed By: #### 2 102642, 36022641, 412561614, 3100303, 7774494 #### [facility] [address] [place] [address] Neutrophils (Bld) [#/Vol] 3.3 E9/L Normal 2.0-7.5 [facility] Comment on above: Performed By: #### 2 914545, 92810802, 452065304, 1791880, 5375824 #### [facility] [address] [place] [address] Neutrophils/100 WBC (Bld) 65.7 % Normal 36.0-75.0 [facility] Comment on above: Performed By: #### 2 401807, 56091614, 108224986, 8130874, 9075239 #### [facility] [address] [place] [address] Platelet 158.0 E9/L Normal 150.0-500.0 [facility] Comment on above: Performed By: #### 2 782941, 96521743, 185285030, 9817129, 8313501 #### [facility] [address] [place] [address] Platelet mean volume (Bld) [Entitic vol] 8.5 fL Normal 6.4-10.8 [facility] Comment on above: Performed By: #### 2 016492, 75379785, 024276722, 1848771, 0969993 #### [facility] [address] [place] [address] RBC (Bld) [#/Vol] 4.4 E12/L Normal 4.3-5.9 [facility] Comment on above: Performed By: #### 2 611199, 51147681, 608260824, 7094867, 6970506 #### [facility] [address] [place] [address] WBC corrected for nucl RBC Auto (Bld) [#/Vol] 5.1 E9/L Normal 4.0-11.0 [facility] Comment on above: Performed By: #### 2 998758, 03713637, 543045083, 4785491, 9754335 #### [facility] [address] [place] [address] CHEMISTRYOrdered By: SYSTEM SYSTEM on 07-03-2023 Albumin [Mass/Vol] 4.0 g/dL Normal 3.3 - 5.0 gm/dL [facility] Albumin DL <= 20 mg/L (U) [Mass/Vol] 1.2 mg/dL Normal 0.0 - 1.9 mg/dL [facility] Albumin/Globulin [Mass ratio] 1.9 {ratio} Normal 1.1 - 2.2 [facility] ALP [Catalytic activity/Vol] 71 [iU]/d Normal 21 - 98 Int._Unit/L [facility] ALT No additional P-5'-P [Catalytic activity/Vol] 65 [iU]/d High 6 - 46 Int._Unit/L [facility] Anion gap [Moles/Vol] 11 mmol/L Normal 6 - 16 mEq/L R emisol Chem AST [Catalytic activity/Vol] 43 [iU]/d Normal 5 - 43 Int._Unit/L [facility] Bilirubin [Mass/Vol] 1.9 mg/dL High 0.0 - 1 .1 mg/dL [facility] Calcium [Mass/Vol] 9.8 mg/dL Normal 8.9 - 11. 1 mg/dL [facility] Chloride [Moles/Vol] 105 mmol/L Normal 101 - 1 11 mmol/L [facility] Cholesterol [Mass/Vol] 152 mg/dL Normal 120 - 200 mg/dL [facility] Cholesterol in HDL [Mass/Vol] 50 mg/dL Invalid Interpretation Code [facility] Comment on above: Result Comment: '>= 60 LOW RISK' '<= 40 HIGH RISK' Cholesterol in LDL [Mass/Vol] 84 mg/dL Normal <=129mg/dL [facility] Cholesterol in VLDL [Mass/Vol] 25 mg/dL Normal 7 - 40 mg/dL [facility] CO2 [Moles/Vol] 30 mmol/L Normal 21 - 31 mmol/L [facility] Creatinine [Mass/Vol] 0.8 mg/dL Normal 0.5 - 1.3 mg/dL [facility] eGFR 79 mL/min/1.73 m2 Normal >=59mL/min /1 .73 m2 [facility] Globulin (S) [Mass/Vol] 2.1 g/dL Normal 1.4 - 4.0 gm/dL [facility] Glucose [Mass/Vol] 140 mg/dL Normal 55 - 199 mg/dL [facility] Potassium [Moles/Vol] 4.0 mmol/L Normal 3.5 - 5.3 mmol/L [facility] Protein [Mass/Vol] 6.1 g/dL Normal 6.0 - 7.8 gm/dL [facility] Protein/Creatinine (U) [Ratio] 7.70 mg/gm Cr Normal 0.00 - 200.00 mg/gm Cr [facility] Sodium [Moles/Vol] 142 mmol/L Normal 135 - 145 mmol/L [facility] Triglyceride [Mass/Vol] 127 mg/dL Normal <=149mg/dL [facility] U Creatinine 129.9 mg/dL Invalid Interpretation Code [facility] Ur Total Protein 10.0 mg/dL Invalid Interpretation Code [facility] Urea nitrogen [Mass/Vol] 31 mg/dL High 5 - 21 mg/dL [facility] Urea nitrogen/Creatinine [Mass ratio] 39 mg/mg High 10 - 20 [facility] CHEMISTRYOrdered By: Tea mejia on 07-03-2023 HbA1c (Bld) [Mass fraction] 7.0 % High <=5.9% [facility] ChemAutoSS CMPon 07-03-2023 Albumin [Mass/Vol] 4.0 g/dL Normal 3.3-5.0 [facility] Comment on above: Performed By: #### 2 579201, 17702302, 776654491, 0683293, 7675979 #### [facility] [address] [place] [address] Albumin/Globulin (S) [Mass conc ratio] 1.9 Normal 1.1-2.2 [facility] Comment on above: Performed By: #### 2 347627, 62704884, 451926158, 2910998, 5896767 #### [facility] [address] [place] [address] ALP [Catalytic activity/Vol] 71 Int._Unit/L Normal 21-98 [facility] Comment on above: Performed By: #### 2 650039, 07138443, 777560099, 4723660, 4542034 #### [facility] [address] [place] [address] ALT No additional P-5'-P [Catalytic activity/Vol] 65 Int._Unit/L High 6-46 [facility] Comment on above: Performed By: #### 2 533391, 64427987, 844337466, 7246090, 0281777 #### [facility] [address] [place] [address] Anion gap [Moles/Vol] 11 mmol/L Normal 6-16 [facility] Comment on above: Performed By: #### 2 263322, 13602491, 158399664, 2342447, 1273704 #### [facility] [address] [place] [address] AST [Catalytic activity/Vol] 43 Int._Unit/L Normal 5-43 [facility] Comment on above: Performed By: #### 2 641399, 70289392, 844443258, 5767910, 9958499 #### [facility] [address] [place] [address] Bilirubin [Mass/Vol] 1.9 mg/dL High 0.0-1.1 [facility] Comment on above: Performed By: #### 2 766913, 76817900, 190603686, 1377421, 7600819 #### [facility] [address] [place] [address] Calcium [Mass/Vol] 9.8 mg/dL Normal 8.9-11.1 [facility] Comment on above: Performed By: #### 2 925181, 68621090, 506537349, 2837637, 7577928 #### [facility] [address] [place] [address] Chloride [Moles/Vol] 105 mmol/L Normal 101-111 [facility] Comment on above: Performed By: #### 2 357277, 06656686, 607455098, 8611730, 8368672 #### [facility] [address] [place] [address] CO2 [Moles/Vol] 30 mmol/L Normal 21-31 [facility] Comment on above: Performed By: #### 2 486277, 46290133, 372426395, 8689650, 9167208 #### [facility] [address] [place] [address] Creatinine [Mass/Vol] 0.8 mg/dL Normal 0.5-1.3 [facility] Comment on above: Performed By: #### 2 910525, 26570050, 856195476, 7675291, 6377320 #### [facility] [address] [place] [address] Globulin (S) [Mass/Vol] 2.1 g/dL Normal 1.4-4.0 [facility] Comment on above: Performed By: #### 2 109349, 74181215, 834129866, 6454141, 4304658 #### [facility] [address] [place] [address] Glucose [Mass/Vol] 140 mg/dL Normal 55-199 [facility] Comment on above: Performed By: #### 2 864711, 98614056, 496049417, 7212612, 7302017 #### [facility] [address] [place] [address] Potassium [Moles/Vol] 4.0 mmol/L Normal 3.5-5.3 [facility] Comment on above: Performed By: #### 2 301304, 81448942, 843797777, 7462112, 5186469 #### [facility] [address] [place] [address] Protein [Mass/Vol] 6.1 g/dL Normal 6.0-7.8 [facility] Comment on above: Performed By: #### 2 378931, 82018363, 080565408, 6393146, 1099611 #### [facility] [address] [place] [address] Sodium [Moles/Vol] 142 mmol/L Normal 135-145 [facility] Comment on above: Performed By: #### 2 906447, 81034695, 777409068, 9651054, 8135117 #### [facility] [address] [place] [address] Urea nitrogen [Mass/Vol] 31 mg/dL High 5-21 [facility] Comment on above: Performed By: #### 2 245333, 48244364, 946034537, 8039013, 8048881 #### [facility] [address] [place] [address] Urea nitrogen/Creatinine [Mass ratio] 39 No Units High 10-20 [facility] Comment on above: Performed By: #### 2 461309, 36276220, 237916281, 2333391, 5772803 #### [facility] [address] [place] [address] Family Medicine Office/Clini c Noteon 07-03-2023 Family Medicine Office/Clinic Note HPI Staff Rafi is a 68 year old female presenting for 3 month follow up DM, HTN with labs especially A1C Do you have any of the following symptoms? Foot Exam: UTD Eye Exam: UTD Sees Dr Horvath Last A1C: Hgb A1C %: 7.1 % High (07/18/22 14:06:00) Statin: atorvastatin 80mg Patient is here for follow up on hypertension. How often are you checking your blood pressure? once in awhile What are your average readings? _ Yearly BMP: 10/09/22 questions/concerns: wants to discuss her med refills History of Present Illness - See staff HPI. Review of Systems PHQ Score Initial Depression Screen Score: 1 SCORE Physical Exam Vitals & Measurements T: 37.2 ?C(Oral) HR: 82(Peripheral) RR: 16 BP: 120/76 SpO2: 99% HT: 61 in HT: 154.4 cm WT: 63.15 kg WT: 138.93 lb BMI: 26.49 General: alert, no acute distress ENMT: oral mucosa moist, Cardiovascular: regular rate and rhythm, normal peripheral perfusion Respiratory: Lungs CTA, respirations non labored Extremities: no deformity, no trauma Neurological: oriented x 4, LOC appropriate for age, CN II-XII intact, motor strength equal & normal bilaterally, speech normal Abdomen: Soft, Nontender, Non-distended, + BS Assessment/Plan 1. HTN (hypertension) (I10: Essential (primary) hypertension) At goal. - Continue on meds - Refilled today. Ordered: CBC w/ Auto Diff Comprehensive Metabolic Panel [facility] Internal Ambulatory Referral [facility] Internal Ambulatory Referral HgbA1c Lipid Panel Microalbumin Level Urine U Protein/Creat Ratio 2. Type 2 diabetes mellitus with hyperlipidemia (E11.69: Type 2 diabetes mellitus with other specified complication) - Will check labs. - No issues. - Doing well. Ordered: CBC w/ Auto Diff Comprehensive Metabolic Panel [facility] Internal Ambulatory Referral [facility] Internal Ambulatory Referral HgbA1c Lipid Panel Microalbumin Level Urine U Protein/Creat Ratio 3. Diabetic neuropathy (E11.40: Type 2 diabetes mellitus with diabetic neuropathy, unspecified) - Stable. - No change Ordered: CBC w/ Auto Diff Comprehensive Metabolic Panel [facility] Internal Ambulatory Referral [facility] Internal Ambulatory Referral HgbA1c Lipid Panel Microalbumin Level Urine U Protein/Creat Ratio 4. 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 Ordered: CBC w/ Auto Diff Comprehensive Metabolic Panel [facility] [place] Internal Ambulatory Referral [facility] [place] Internal Ambulatory Referral HgbA1c Lipid Panel Microalbumin Level Urine U Protein/Creat Ratio 5. Colon cancer screening (Z12.11: Encounter for screening for malignant neoplasm of colon) - Will refer for colonoscopy Ordered: CBC w/ Auto Diff Comprehensive Metabolic Panel [facility] [place] Internal Ambulatory Referral [facility] [place] Internal Ambulatory Referral HgbA1c Lipid Panel Microalbumin Level Urine U Protein/Creat Ratio 6. Paroxysmal atrial fibrillation (I48.0: Paroxysmal atrial fibrillation) - Pt declines having this. - Will remove Ordered: CBC w/ Auto Diff Comprehensive Metabolic Panel HgbA1c Lipid Panel Microalbumin Level Urine U Protein/Creat Ratio 7. Hyperlipidemia, unspecified (E78.5: Hyperlipidemia, unspecified) - Continue on a statin Ordered: CBC w/ Auto Diff Comprehensive Metabolic Panel HgbA1c Lipid Panel Microalbumin Level Urine U Protein/Creat Ratio Orders: losartan, See Instructions, TAKE 1 TABLET BY MOUTH EVERY DAY, # 90 tab(s), Refills(s) 0, Pharmacy: [facility]/pharmacy #[id number], 154.4, cm, 07/03/23 10:36:00 EDT, Height/Length Dosing, 63.1, kg, 07/03/23 10:36:00 EDT, Weight Dosing Misc Prescription, Freestyle Lokesh Flash Glucose Monitoring 14 Day System (Sensor), See Instructions, 6 EA, 11, Freestyle Lokesh 2 Flash Glucose Monitoring 14 Day System (Sensor). Replace sensor every 14 days., [facility]/pharmacy #[id number], Supply, 154.4, cm, 07/03/23 10:36:00 EDT... Follow-up No qualifying data available Problem List/Past Medical History Ongoing Aorto-iliac atherosclerosis Benign neoplasm of cerebral meninges BPPV (benign paroxysmal positional vertigo) CHF (congestive heart failure) Colon cancer screening Diabetic neuropathy DM type 2 causing vascular disease GERD without esophagitis HTN (hypertension) Hyperlipidemia, unspecified Hypertensive heart disease with CHF Injury of left foot Long-term insulin use Total bilirubin, elevated Type 2 diabetes mellitus with hyperlipidemia Historical No qualifying data Procedure/Surgical History Open heart surgery (2020), Cataract extraction and insertion of intraocular lens (07/23/2019), Cholecystectomy, Colonoscopy, Tooth extraction, Tubal ligation. Medications aspirin 81 mg Oral EC Tab, 81 mg= 1 tab(s), Oral, Daily atorvastatin 80 mg Tab, 80 mg= 1 tab(s), Oral, Daily, 3 refills Basaglar KwikPen 100 units/mL subcutaneous solution, See Instructions, 3 refills Freestyle Lindsay (more content not included)... Normal [facility] Comment on above: Result Comment: Elec tronically Signed By: Mervin SHANNON, Francisco Terrell\.br\Date and Time Signed: 07/03/23 10:57 EDT HEMATOLOGYOrdered By: SYSTEM SYSTEM on 07-03-2023 Basophils/100 WBC (Bld) 0.9 % Normal 0.0 - 2.0 % Remisol Heme Basophils/Leukocytes Auto (Bld) [Pure # fraction] 0.0 E9/L Normal 0.0 - 0.2 E9/L Remisol Heme Eosinophils (Bld) [#/Vol] 0.2 E9/L Normal 0.0 - 0.5 E9/L Remisol Heme Eosinophils/100 WBC (Bld) 4.8 % Normal 0.0 - 8.0 % Remisol Heme Erythrocyte distribution width (RBC) [Ratio] 14.1 % Normal 10.9 - 14.2 % Remisol Heme Hematocrit (Bld) [Volume fraction] 40.0 % Normal 34.0 - 46.0 % Remisol Heme Hemoglobin (Bld) [Mass/Vol] 13.3 g/dL Normal 12.0 - 16.0 gm/dL Remisol Heme Lymphocytes (Bld) [#/Vol] 1.1 E9/L Normal 1.0 - 4.0 E9/L Remisol Heme Lymphocytes/100 WBC (Bld) 20.9 % Normal 14.0 - 50.0 % Remisol Heme MCH (RBC) [Entitic mass] 30.2 pg Normal 27.0 - 34.0 pg Remisol Heme MCHC (RBC) [Mass/Vol] 33.3 g/dL Normal 31.4 - 36.0 gm/dL Remisol Heme MCV (RBC) [Entitic vol] 90.7 fL Normal 80.0 - 100.0 fL Remisol Heme Monocytes (Bld) [#/Vol] 0.4 E9/L Normal 0.2 - 1.0 E9/L Remisol Heme Monocytes/100 WBC (Bld) 7.7 % Normal 4.0 - 14.0 % Remisol Heme Neutrophils (Bld) [#/Vol] 3.3 E9/L Normal 2.0 - 7.5 E9/L Remisol Heme Neutrophils/100 WBC (Bld) 65.7 % Normal 36.0 - 75.0 % Remisol Heme Platelet 158.0 E9/L Normal 150.0 - 500.0 E9/L Remisol Heme Platelet mean volume (Bld) [Entitic vol] 8.5 fL Normal 6.4 - 10.8 fL Remisol Heme RBC (Bld) [#/Vol] 4.4 E12/L Normal 4.3 - 5.9 E12/L Remisol Heme WBC corrected for nucl RBC Auto (Bld) [#/Vol] 5.1 E9/L Normal 4.0 - 11.0 E9/L Remisol Heme [id number] 07-03-2023 HbA1c (Bld) [Mass fraction] 7.0 % High <=5.9 [facility] Comment on above: Performed By: #### 2 [id number] ####[facility] [address] [place] [address] Lipid Panelon 07-03-2023 Cholesterol [Mass/Vol] 152 mg/dL Normal 120-200 [facility] Comment on above: Performed By: #### 2 [id number], [id number], [id number], [id number] #### [facility] [address] [place] [address] Cholesterol in HDL [Mass/Vol] 50 mg/dL Invalid Interpretation Code [facility] Comment on above: Result Comment: '>= 60 LOW RISK' '<= 40 HIGH RISK' Performed By: #### 2 [id number], [id number], [id number], [id number] #### [facility] [address] [place] [address] Cholesterol in LDL [Mass/Vol] 84 mg/dL Normal <=129 [facility] Comment on above: Performed By: #### 2 [id number], [id number], [id number], [id number] #### [facility] [address] [place] [address] Cholesterol in VLDL [Mass/Vol] 25 mg/dL Normal 7-40 [facility] Comment on above: Performed By: #### 2 [id number], [id number], [id number], [id number] #### [facility] [address] [place] [address] Triglyceride [Mass/Vol] 127 mg/dL Normal <=149 [facility] Comment on above: Performed By: #### 2 [id number], [id number], [id number], [id number], [id number] #### [facility] [address] [place] [address] Physician Referralon 024 Physician Referral [id number] 02 [id number]. [id number] Normal [facility] U Microalbon 07-03-2023 Albumin DL <= 20 mg/L (U) [Mass/Vol] 1.2 mg/dL Normal 0.0-1.9 [facility] Comment on above: Performed By: #### 1 [id number], [id number] ####[facility] [address] [place] [address] U Protein/Creat Ratioon 06-17 Protein/Creatinine (U) [Ratio] 7.70 mg/gm Cr Normal .00-200.00 [facility] Comment on above: Performed By: #### 1 [id number], [id number] ####[facility] [address] [place] [address] U Creatinine 129.9 mg/dL Invalid Interpretation Code [facility] Comment on above: Performed By: #### 1 [id number], [id number] ####[facility] [address] [place] [address] Ur Total Protein 10.0 mg/dL Invalid Interpretation Code [facility] Comment on above: Performed By: #### 1 [id number], [id number] ####[facility] [address] [place] [address] eGFRon 07-03-2023 eGFR 79 mL/min/1.73 m2 Normal >=59 [facility] Comment on above: Order Comment: Order added by Discern Expert. Performed By: #### 2 [id number], [id number], [id number], [id number] #### [facility] [address] [place] [address] Ambulatory Visit Summaryon 0 04-23-2023 Ambulatory Visit Summary RAFI ROPER :1955 Visit Date:04/23/2023 Ambulatory Visit Instructions Your Care Team Attending Physician - Francisco Mckeon MD Primary Care Physician - Francisco Mckeon MD This Is Your Medications List Misc Prescription (Freestyle Lokesh 2 Sensor) Misc Prescription (Freestyle Lokesh 3 Flash Glucose Monitoring 14 Day System ([place])) Misc Prescription (Freestyle Lokesh 3 Flash Glucose Monitoring 14 Day System (Sensor)) Misc Prescription (Freestyle Lokesh Flash Glucose Monitoring 14 Day System (Sensor)) Misc Prescription (Misc DME Prescription) aspirin (aspirin 81 mg Oral EC Tab) atorvastatin (atorvastatin 80 mg Tab) gabapentin (gabapentin 300 mg Cap) insulin aspart (NovoLOG FlexPen 100 units/mL injectable solution) insulin detemir (insulin detemir 100 units/mL SC Bel[place]) levothyroxine (levothyroxine 50 mcg (0.05 mg) Tab) losartan (losartan 100 mg Tab) magnesium oxide (magnesium oxide 400 mg Tab) metformin (metformin 500 mg ER Tab) metoprolol (metoprolol 50 mg ER Tab) Procedures Performed Open heart surgery (2020), Cataract extraction and insertion of intraocular lens (07/23/2019), Cholecystectomy, Colonoscopy, Tooth extraction, Tubal ligation. Discharge Vitals Temperature (Temporal Artery) 36.9 ?C Heart Rate (Peripheral) 97 Respiratory Rate 14 Blood Pressure 126/74 Height 154.4 cm Height 61 in Weight 63.5 kg Weight 139.7 lb BMI 26.64 What to do next Scheduled Follow-Up Appointments Sunday 10:30 AM EDT With: Mervin SHANNON, Francisco Terrell Where: [facility] [place] [facility] Family Medicine Office/Clini c Noteon 04-23-2023 Family Medicine Office/Clinic Note HPI Staff Rafi is a 68 year old female presenting for acute visit Over the weekend had left leg swelling knee down to ankle, elevated and it's better but wants checked out. wasn't red or warm to the touch, just puffy. Could have possibly been too much salt in a meal sunday but she's not sure flu: UTD 12/21/22 questions/concerns: her left arm, upper has some pain ? pulled muscle but wants to be sure it's not something more serious History of Present Illness - Pt presents with a one day hx of unilateral leg swelling. - L leg - Resolved with elevation. - RENNY asked to have her seen. 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 Review of Systems PHQ Score Initial Depression Screen Score: 0 SCORE Physical Exam Vitals & Measurements T: 36.9 ?C(Temporal Artery) HR: 97(Peripheral) RR: 14 BP: 126/74 SpO2: 72% HT: 61 in HT: 154.4 cm WT: 63.5 kg WT: 139.7 lb BMI: 26.64 General: alert, no acute distress ENMT: oral mucosa moist, Cardiovascular: regular rate and rhythm, normal peripheral perfusion Respiratory: Lungs CTA, respirations non labored Extremities: no deformity, no trauma, No edema present. Neurological: oriented x 4, LOC appropriate for age, CN II-XII intact, motor strength equal & normal bilaterally, speech normal Abdomen: Soft, Nontender, Non-distended, + BS Assessment/Plan 1. Unilateral edema of lower extremity (R60.0: Localized edema) - Resolved - Most likely do to venous insufficiency - Precautions discussed in detail. When to return discussed along with when to go to the ER. Pt verbalized understanding. 2. Aorto-iliac atherosclerosis (I70.0: Atherosclerosis of aorta) - Continue on asa and statin Atherosclerosis of other arteries (I70.8: Atherosclerosis of other arteries) Orders: docusate, 100 mg = 1 cap(s), Oral, BID, PRN for constipation, # 180 cap(s), Refills(s) 1, Pharmacy: [facility]/pharmacy #[id number], 154.5, cm, 09/11/22 10:05:00 EDT, Height/Length Dosing, 63, kg, 09/11/22 10:05:00 EDT, Weight Dosing semaglutide, See Instructions, INJECT 0.25 MG SUBCUTANEOUSLY EVERY WEEK, # 3 Unspecified/Unknown, Refills(s) 0, Pharmacy: [id number], 154.4, cm, 01/25/23 9:05:00 EST, Height/Length Dosing, 63.8, kg, 02/13/23 13:34:00 EST, Weight Dosing Follow-up No qualifying data available Patient Education Atherosclerosis Problem List/Past Medical History Ongoing Aorto-iliac atherosclerosis Benign neoplasm of cerebral meninges BPPV (benign paroxysmal positional vertigo) CHF (congestive heart failure) Colon cancer screening Diabetic neuropathy DM type 2 causing vascular disease GERD without esophagitis HTN (hypertension) Hyperlipidemia, unspecified Hypertensive heart disease with CHF Injury of left foot Long-term insulin use Palpitations Paroxysmal atrial fibrillation Sinusitis Total bilirubin, elevated Type 2 diabetes mellitus with hyperlipidemia Unilateral edema of lower extremity Historical No qualifying data Procedure/Surgical History Open heart surgery (2020), Cataract extraction and insertion of intraocular lens (07/23/2019), Cholecystectomy, Colonoscopy, Tooth extraction, Tubal ligation. Medications aspirin 81 mg Oral EC Tab, 81 mg= 1 tab(s), Oral, Daily atorvastatin 80 mg Tab, 80 mg= 1 tab(s), Oral, Daily, 3 refills Freestyle Lokesh 2 Sensor, See Instructions, 5 refills Freestyle Lokesh 3 Flash Glucose Monitoring 14 Day System ([place]), See Instructions Freestyle Lokesh 3 Flash Glucose Monitoring 14 Day System (Sensor), See Instructions Freestyle Lokesh Flash Glucose Monitoring 14 Day System (Sensor), See Instructions, 11 refills gabapentin 300 mg Cap, 300 mg= 1 cap(s), Oral, Once a day (at bedtime), 3 refills insulin detemir 100 units/mL SC Belen, See Instructions, 3 refills levothyroxine 50 mcg (0.05 mg) Tab, 50 mcg= 1 tab(s), Oral, Daily, 3 refills losartan 100 mg Tab, See Instructions magnesium oxide 400 mg Tab, 400 mg= 1 tab(s), Oral, Daily, 3 refills metformin 500 mg ER Tab, 500 mg= 1 tab(s), Oral, Daily, 3 refills metoprolol 50 mg ER Tab, 50 mg= 1 tab(s), Oral, Daily, 3 refills Misc DME Prescription, See Instructions NovoLOG FlexPen 100 units/mL injectable solution, See Instructions Allergies Latex ([place]) Social History Tobacco - Denies Tobacco Use, 11/02/2021 Never (less than 100 in lifetime) Tobacco Use:. Never Smokeless Tobacco Use:. Household tobacco concerns: No., 04/23/2023 Family History Kidney disease: Grandparent. Stroke: Grandparent. Immunizations Vaccine Date Status Comments influenza virus vaccine, inactivated 12/21/2022 Recorded influenza virus vaccine, inactivated 12/20/2021 Recorded SARS-CoV-2 (COVID-19) [id number] 11/28/2021 Recorded 2022-06-29: [id number] influenza virus vaccine, inactivated 11/23/2021 Recorded SARS-CoV-2 (COVID-19) [id number] vaccine 06/29/2021 Recorded SARS-CoV-2 (COVID-19) [id number] vaccine 01/08/2021 Recorded 2022-06-29: TPV60 influenza virus vaccine, inactivated 12/04/2020 (more content not included)... Normal [facility] Comment on above: Result Comment: Elec tronically Signed By: Mervin SHANNON, Francisco Terrell\.br\Date and Time Signed: 04/23/23 09:46 EST Patient Educationon 04-23-19 24 Patient Education Cardiovascular Atherosclerosis Atherosclerosis is when plaque builds up in the arteries. This causes narrowing and hardening of the arteries. Arteries are blood vessels that carry blood from the heart to all parts of the body. This blood contains oxygen. Plaque occurs due to inflammation or from a buildup of fat, cholesterol, calcium, waste products of cells, and a clotting material in the blood (fibrin). Plaque decreases the amount of blood that can flow through the artery. Atherosclerosis can affect any artery in your body, including: ? Heart arteries. Damage to these arteries may lead to coronary artery disease, which can cause a heart attack. ? Brain arteries. Damage to these arteries may cause a stroke. ? Leg, arm, and pelvis arteries. Peripheral artery disease (PAD) may result from damage to these arteries. ? Kidney arteries. Kidney (renal) failure may result from damage to kidney arteries. Treatment may slow the disease and prevent further damage to your heart, brain, peripheral arteries, and kidneys. What are the causes? This condition develops slowly over many years. The inner layers of your arteries become damaged and allow the gradual buildup of plaque. The exact cause of atherosclerosis is not fully understood. Symptoms of atherosclerosis do not occur until an artery becomes narrow or blocked. What increases the risk? The following factors may make you more likely to develop this condition: ? Being middle-aged or older. ? Certain medical conditions, including: ? High blood pressure. ? High cholesterol. ? High blood fats (triglycerides). ? Diabetes. ? Sleep apnea. ? Obesity. ? Certain lab levels, including: ? Elevated C-reactive protein (CRP). This is a sign of increased inflammation in your body. ? Elevated homocysteine levels. This is an amino acid that is associated with heart and blood vessel disease. ? Using tobacco or nicotine products. ? A family history of atherosclerosis. ? Not exercising enough (sedentary lifestyle). ? Being stressed. ? Drinking too much alcohol or using drugs, such as cocaine or methamphetamine. What are the signs or symptoms? Symptoms of atherosclerosis do not occur until the plaque severely narrows or blocks the artery, which decreases blood flow. Sometimes, atherosclerosis does not cause symptoms. Symptoms of this condition include: ? Coronary artery disease. This may cause chest pain and shortness of breath. ? Decreased blood supply to your brain, which may cause a stroke. Signs of a stroke may include sudden: ? Weakness or numbness in your face, arm, or leg, especially on one side of your body. ? Trouble walking or difficulty moving your arms or legs. ? Loss of balance or coordination. ? Confusion. ? Slurred speech. ? Trouble speaking, or trouble understanding speech, or both (aphasia). ? Vision changes in one or both eyes. This may be double vision, blurred vision, or loss of vision. ? Severe headache with no known cause. The headache is often described as the worst headache ever experienced. ? PAD, which may cause pain, numbness, or nonhealing wounds, often in your legs and hips. ? Renal failure. This may cause tiredness, problems with urination, swelling, and itchy skin. How is this diagnosed? This condition is diagnosed based on your medical history and a physical exam. During the exam, your health care provider will: ? Check your pulse in different places. ? Listen for a whooshing sound over your arteries (bruit). You may also have tests, such as: ? Blood tests to check your levels of cholesterol, triglycerides, blood sugar, and CRP. ? Ankle-brachial index to compare blood pressure in your arms to blood pressure in your ankles to see how your blood is flowing. ? Heart (cardiac) tests. ? Electrocardiogram (ECG) to check for heart damage. ? Stress test to see how your heart reacts to exercise. ? Ultrasound tests. ? Ultrasound of your peripheral arteries to check blood flow. ? Echocardiogram to get images of your heart's chambers and valves. ? X-ray tests. ? Chest X-ray to see if you have an enlarged heart, which is a sign of heart failure. ? CT scan to check for damage to your heart, brain, or arteries. ? Angiogram. This is a test where dye is injected and X-rays are used to see the blood flow in the arteries. How is this treated? This condition is treated with lifestyle changes as the first step. These may include: ? Changing your diet. ? Losing weight. ? Reducing stress. ? Exercising and being physically active more regularly. ? Quitting smoking. You may also need medicine to: ? Lower triglycerides and cholesterol. ? Control blood pressure. ? Prevent blood clots. ? Lower inflammation in your body. ? Control your blood sugar. Sometimes, surgery is needed to: ? Remove plaque from an artery (endarterectomy). ? Open or widen a narrowed heart artery or peripheral artery (jaycee (more content not included)... Normal [facility] Ambulatory Visit Summaryon 0 04-03-2023 Ambulatory Visit Summary RAFI ROPER :1955 Visit Date:04/03/2023 Ambulatory Visit Instructions Your Diagnosis Type 2 diabetes mellitus with hyperlipidemia Diabetic neuropathy DM type 2 causing vascular disease HTN (hypertension) BMI 26.0-26.9,adult Non-smoker Benign neoplasm of cerebral meninges CHF (congestive heart failure) Hypertensive heart disease with CHF Long-term insulin use Paroxysmal atrial fibrillation Your Care Team Attending Physician - Francisco Mckeon MD Primary Care Physician - Francisco Mckeon MD This Is Your Medications List Misc Prescription (Freestyle Lokesh 2 Sensor) Misc Prescription (Freestyle Lokesh Flash Glucose Monitoring 14 Day System (Sensor)) Misc Prescription (Misc DME Prescription) aspirin (aspirin 81 mg Oral EC Tab) atorvastatin (atorvastatin 80 mg Tab) docusate (docusate sodium 100 mg Cap) gabapentin (gabapentin 300 mg Cap) insulin aspart (NovoLOG FlexPen 100 units/mL injectable solution) insulin detemir (insulin detemir 100 units/mL SC [place]) levothyroxine (levothyroxine 50 mcg (0.05 mg) Tab) losartan (losartan 100 mg Tab) magnesium oxide (magnesium oxide 400 mg Tab) metformin (metformin 500 mg ER Tab) metoprolol (metoprolol 50 mg ER Tab) semaglutide (Ozempic 2 mg/3 mL (0.25 mg or 0.5 mg dose) subcutaneous solution) Procedures Performed Open heart surgery (2020), Cataract extraction and insertion of intraocular lens (07/23/2019), Cholecystectomy, Colonoscopy, Tooth extraction, Tubal ligation. Discharge Vitals Heart Rate (Peripheral) 78 Respiratory Rate 18 Blood Pressure 132/84 Height 154.4 cm Height 61 in Weight 64.3 kg Weight 141.46 lb BMI 26.97 What to do next Scheduled Follow-Up Appointments Sunday 10:30 AM EDT With: Francisco Mckeon MD Where: [facility] [place] Normal [facility] Family Medicine Office/Clini c Noteon 04-03-2023 Family Medicine Office/Clinic Note HPI Staff Rafi is a 68 year old female presenting for 3 month follow up Do you have any of the following symptoms? Foot Exam: Eye Exam: Last A1C: Hgb A1C %: 7.1 % High (07/18/22 14:06:00) Statin: Atorvastatin 80mg daily Flu: UTD Pt stopped taking Ozempic due to making her feel nauseated Patient is here for follow up on hypertension. How often are you checking your blood pressure? weekly What are your average readings? 135/80 Patient is here for follow up on Thyroid Disease. Last TSH: TSH: 1.24 mcIU/mL (07/18/22 14:06:00) no refills needed at this time History of Present Illness - Pt here for follow up - May need a change in Insulin 2/2 changes in insurance. - No other issues at this time - Pt feels well. Review of Systems PHQ Score Initial Depression Screen Score: 0 SCORE Physical Exam Vitals & Measurements HR: 78(Peripheral) RR: 18 BP: 132/84 SpO2: 99% HT: 61 in HT: 154.4 cm WT: 64.3 kg WT: 141.46 lb BMI: 26.97 General: alert, no acute distress ENMT: oral mucosa moist, Cardiovascular: regular rate and rhythm, normal peripheral perfusion Respiratory: Lungs CTA, respirations non labored Extremities: no deformity, no trauma Neurological: oriented x 4, LOC appropriate for age, CN II-XII intact, motor strength equal & normal bilaterally, speech normal Abdomen: Soft, Nontender, Non-distended, + BS Assessment/Plan 1. Type 2 diabetes mellitus with hyperlipidemia (E11.69: Type 2 diabetes mellitus with other specified complication) - Continue meds as before. - May have to change to lantus. - Pt would like to try and get a freestyle lokesh 3. Ordered: Misc Prescription, Freestyle Lokesh 3 Flash Glucose Monitoring 14 Day System ([place]), See Instructions, 1 EA, 0, Freestyle Lokesh Flash Glucose Monitoring 14 Day System ([place]), [facility]/pharmacy #[id number], Supply, 154.4, cm, 04/03/23 10:00:00 EST, Height/Length Dosing, 64.3, kg... Misc Prescription, Freestyle Lokesh 3 Flash Glucose Monitoring 14 Day System (Sensor), See Instructions, 2 EA, 0, Freestyle Lokesh Flash Glucose Monitoring 14 Day System (Sensor). Replace sensor every 14 days., [facility] #[id number], Supply, 154.4, cm, 04/03/23 10:00:00 EST,... Body Mass Index (BMI) documented 3008F Current tobacco non-user 1036F Depression Screening Negative 3352F Most recent diastolic blood pressure 80-89 mm Hg 3079F Patient screen for fall risk: no falls in last year or 1 fall with no injury in last year 1101F Systolic BP 130-139 mm Hg (Most Recent) 3075F 2. Diabetic neuropathy (E11.40: Type 2 diabetes mellitus with diabetic neuropathy, unspecified) - As above Ordered: Misc Prescription, Freestyle Lokesh 3 Flash Glucose Monitoring 14 Day System ([place]), See Instructions, 1 EA, 0, Freestyle Lokesh Flash Glucose Monitoring 14 Day System ([place]), [id number], Supply, 154.4, cm, 04/03/23 10:00:00 EST, Height/Length Dosing, 64.3, kg... Misc Prescription, Freestyle Lokesh 3 Flash Glucose Monitoring 14 Day System ([place]ensor), See Instructions, 2 EA, 0, Freestyle Lokesh Flash Glucose Monitoring 14 Day System (Sensor). Replace sensor every 14 days., [id number], Supply, 154.4, cm, 04/03/23 10:00:00 EST,... Body Mass Index (BMI) documented 3008F Current tobacco non-user 1036F Depression Screening Negative 3352F Most recent diastolic blood pressure 80-89 mm Hg 3079F Patient screen for fall risk: no falls in last year or 1 fall with no injury in last year 1101F Systolic BP 130-139 mm Hg (Most Recent) 3075F 3. DM type 2 causing vascular disease (E11.59: Type 2 diabetes mellitus with other circulatory complications) - As above Ordered: Misc Prescription, Freestyle Lokesh 3 Flash Glucose Monitoring 14 Day System ([place]), See Instructions, 1 EA, 0, Freestyle [place]okesh Flash Glucose Monitoring 14 Day System ([place]), [id number], Supply, 154.4, cm, 04/03/23 10:00:00 EST, Height/Length Dosing, 64.3, kg... Misc Prescription, Freestyle Lokesh 3 Flash Glucose Monitoring 14 Day System ([place]), See Instructions, 2 EA, 0, Freestyle [place] Flash Glucose Monitoring 14 Day System (Sensor). Replace sensor every 14 days., [id number], Supply, 154.4, cm, 04/03/23 10:00:00 EST,... Body Mass Index (BMI) documented 3008F Current tobacco non-user 1036F Depression Screening Negative 3352F Most recent diastolic blood pressure 80-89 mm Hg 3079F Patient screen for fall risk: no falls in last year or 1 fall with no injury in last year 1101F Systolic BP 130-139 mm Hg (Most Recent) 3075F 4. HTN (hypertension) (I10: Essential (primary) hypertension) - Well Controlled Ordered: Misc Prescription, Freestyle Lokesh 3 Flash Glucose Monitoring 14 Day System ([place]), See Instructions, 1 EA, 0, Freestyle Lokesh Flash Glucose Monitoring 14 Day System ([place]), [id number], Supply, 154.4, cm, 04/03/23 10:00:00 EST, Height/Length Dosing, 64.3, kg... Misc Prescription, Freestyle Lokesh 3 Flash Glucose Monitoring 14 Day System ([place]), See Instructions, 2 EA, 0, F (more content not included)... [facility] Comment on above: Result Comment: Elec tronically Signed By: Francisco Mckeon MD\.br\Date and Time Signed: 04/03/23 11:07 EST Ambulatory Visit Summaryon 1 05-02-2022 Ambulatory Visit Summary RAFI ROPER :1955 Visit Date:03/01/2023 Ambulatory Visit Instructions Your Diagnosis Sinusitis BMI 26.0-26.9,adult Overweight Nonsmoker Your Care Team Attending Physician - Carolyn Benoit Primary Care Physician - Francisco Mckeon MD This Is Your Medications List Misc Prescription (Freestyle Lokesh 2 Sensor) Misc Prescription (Freestyle L[place]h Flash Glucose Monitoring 14 Day System (Sensor)) Misc Prescription (Misc DME Prescription) amlodipine (Norvasc 2.5 mg Tab) aspirin (aspirin 81 mg Oral EC Tab) atorvastatin (atorvastatin 80 mg Tab) cefuroxime (cefuroxime 500 mg oral tablet) docusate (docusate sodium 100 mg Cap) gabapentin (gabapentin 300 mg Cap) insulin aspart (NovoLOG FlexPen 100 units/mL injectable solution) insulin detemir (insulin detemir 100 units/mL SC Belen) levothyroxine (levothyroxine 50 mcg (0.05 mg) Tab) losartan (losartan 100 mg Tab) magnesium oxide (magnesium oxide 400 mg Tab) metformin (metformin 500 mg ER Tab) metoprolol (metoprolol 50 mg ER Tab) omeprazole (omeprazole 40 mg Cap-DR) semaglutide (Ozempic 2 mg/3 mL (0.25 mg or 0.5 mg dose) subcutaneous solution) Procedures Performed Open heart surgery (2020), Cataract extraction and insertion of intraocular lens (07/23/2019), Cholecystectomy, Colonoscopy, Tooth extraction, Tubal ligation. Discharge Vitals Temperature (Oral) 36.8 ?C Heart Rate (Peripheral) 84 Respiratory Rate 16 Blood Pressure 112/78 Height 154.4 cm Height 61 in Weight 62.70 kg Weight 137.94 lb BMI 26.3 What to do next Scheduled Follow-Up Appointments Sunday 10:00 AM EST With: Francisco Mckeon MD Where: [facility] Family Medicine [facility] Ambulatory Visit Summary RAFI ROPER :1955 Visit Date:03/01/2023 Ambulatory Visit Instructions Your Diagnosis Sinusitis BMI 26.0-26.9,adult Overweight Nonsmoker Your Care Team Attending Physician - Carolyn Benoit Primary Care Physician - Francisco Mckeon MD This Is Your Medications List Misc Prescription (Freestyle Lokesh 2 Sensor) Misc Prescription (Freestyle Lokesh Flash Glucose Monitoring 14 Day System (Sensor)) Misc Prescription (Misc DME Prescription) amlodipine (Norvasc 2.5 mg Tab) aspirin (aspirin 81 mg Oral EC Tab) atorvastatin (atorvastatin 80 mg Tab) docusate (docusate sodium 100 mg Cap) gabapentin (gabapentin 300 mg Cap) insulin aspart (NovoLOG FlexPen 100 units/mL injectable solution) insulin detemir (insulin detemir 100 units/mL SC Belen) levothyroxine (levothyroxine 50 mcg (0.05 mg) Tab) losartan (losartan 100 mg Tab) magnesium oxide (magnesium oxide 400 mg Tab) metformin (metformin 500 mg ER Tab) metoprolol (metoprolol 50 mg ER Tab) omeprazole (omeprazole 40 mg Cap-DR) semaglutide (Ozempic 2 mg/3 mL (0.25 mg or 0.5 mg dose) subcutaneous solution) Procedures Performed Open heart surgery (2020), Cataract extraction and insertion of intraocular lens (07/23/2019), Cholecystectomy, Colonoscopy, Tooth extraction, Tubal ligation. Discharge Vitals Temperature (Oral) 36.8 ?C Heart Rate (Peripheral) 84 Respiratory Rate 16 Blood Pressure 112/78 Height 154.4 cm Height 61 in Weight 62.70 kg Weight 137.94 lb BMI 26.3 What to do next Scheduled Follow-Up Appointments Sunday 10:00 AM EST With: Mervin SHANNON, Francisco Terrell Where: [facility] Medicine [place] [facility] Office/Clini c Noteon 03-01-2023 Family Medicine Office/Clinic Note HPI Staff Rafi is a 68 year old female presenting for acute visit Respiratory C/O: Onset: sunday Body aches: no Chest congestion: no Chills: yes Cough: yes dry cough Sputum production: no Sore throat: no Ear complaints: no Eye itching/watering: yessome what itchy Fever: no Headache: no Nasal congestion: yes Nasal discharge: yes mainly clear, occasional tinge to it Poor appetite: yes Reduced activity: yes Sinus pain/pressure: yes Sneezing: yes Wheezing: no Ill contacts: no Remedies tried: nothing flu: UTD Questions/Concerns: needs her gabapentin refilled History of Present Illness pt presents today for sinus congestion and larygitis Review of Systems PHQ Score Initial Depression Screen Score: 0 SCORE ROS - Provider Constitutional: no fever, no chills, no sweats, no fatigue Respiratory: no shortness of breath, no cough, no orthopnea, no wheezing. Cardiovascular: no chest pain, no palpitations, no edema. Neurologic: no headache, no dizziness, no numbness, no weakness. nasal congestion losing voice Physical Exam Vitals & Measurements T: 36.8 ?C(Oral) HR: 84(Peripheral) RR: 16 BP: 112/78 SpO2: 100% HT: 61 in HT: 154.4 cm WT: 62.70 kg WT: 137.94 lb BMI: 26.3 General: alert, no acute distress ENMT: oral mucosa moist, no pharyngeal erythema or exudate Cardiovascular: regular rate and rhythm, normal peripheral perfusion Respiratory: Lungs CTA, respirations non labored Extremities: no deformity, no trauma Neurological: oriented x 4, LOC appropriate for age, CN II-XII intact, motor strength equal & normal bilaterally, speech normal Assessment/Plan 1. Sinusitis (J32.9: Chronic sinusitis, unspecified) pt presents today with nasal congestion and sinus tenderness. is also losing her voice. ears are WNL. throat slightly red. will treat with antibiotic. RTC as needed 2. BMI 26.0-26.9,adult (Z68.26: Body mass index [BMI] 26.0-26.9, adult) BMI education complete Ordered: gabapentin, 300 mg = 1 cap(s), Oral, Once a day (at bedtime), # 90 cap(s), Refills(s) 3, Pharmacy: [facility] #[id number], 154.4, cm, 03/01/23 15:22:00 EST, Height/Length Dosing, 62.7, kg, 03/01/23 15:22:00 EST, Weight Dosing gabapentin, 300 mg = 1 cap(s), Oral, Once a day (at bedtime), # 90 cap(s), Refills(s) 3, Pharmacy: [facility]/pharmacy #[id number], 154.5, cm, 09/11/22 10:05:00 EDT, Height/Length Dosing, 63, kg, 09/11/22 10:05:00 EDT, Weight Dosing Body Mass Index (BMI) documented 3008F Current tobacco non-user 1036F Depression Screening Negative 3352F Influenza immunization administered or previously received 4274F Most recent diastolic blood pressure <80 mm Hg 3078F Patient screen for fall risk: no falls in last year or 1 fall with no injury in last year 1101F Systolic BP <130 mm Hg (Most Recent) 3074F 3. Overweight (E66.3: Overweight) see above Ordered: Body Mass Index (BMI) documented 3008F Current tobacco non-user 1036F Depression Screening Negative 3352F Influenza immunization administered or previously received 4274F Most recent diastolic blood pressure <80 mm Hg 3078F Patient screen for fall risk: no falls in last year or 1 fall with no injury in last year 1101F Systolic BP <130 mm Hg (Most Recent) 3074F 4. Nonsmoker, (Z78.9: Other specified health status) Non-smoker continue not smoking Ordered: gabapentin, 300 mg = 1 cap(s), Oral, Once a day (at bedtime), # 90 cap(s), Refills(s) 3, [id number], 154.4, cm, 03/01/23 15:22:00 EST, Height/Length Dosing, 62.7, kg, 03/01/23 15:22:00 EST, Weight Dosing gabapentin, 300 mg = 1 cap(s), Oral, Once a day (at bedtime), # 90 cap(s), Refills(s) 3, [id number], 154.5, cm, 09/11/22 10:05:00 EDT, Height/Length Dosing, 63, kg, 09/11/22 10:05:00 EDT, Weight Dosing Body Mass Index (BMI) documented 3008F Current tobacco non-user 1036F Depression Screening Negative 3352F Influenza immunization administered or previously received 4274F Most recent diastolic blood pressure <80 mm Hg 3078F Patient screen for fall risk: no falls in last year or 1 fall with no injury in last year 1101F Systolic BP <130 mm Hg (Most Recent) 3074F Diabetic neuropathy (E11.40: Type 2 diabetes mellitus with diabetic neuropathy, unspecified) gabapentin refilled Ordered: gabapentin, 300 mg = 1 cap(s), Oral, Once a day (at bedtime), # 90 cap(s), Refills(s) 3, [id number], 154.4, cm, 03/01/23 15:22:00 EST, Height/Length Dosing, 62.7, kg, 03/01/23 15:22:00 EST, Weight Dosing gabapentin, 300 mg = 1 cap(s), Oral, Once a day (at bedtime), # 90 cap(s), Refills(s) 3, [id number], 154.5, cm, 09/11/22 10:05:00 EDT, Height/Length Dosing, 63, kg, 09/11/22 10:05:00 EDT, Weight Dosing Orders: cefuroxime, 500 mg = 1 tab(s), Oral, BID, X 7 day(s), # 14 tab(s), Refills(s) 0, [id number], 154.4, cm, 03/01/23 15:22:00 EST, Height/Length Dosing, 62.7, kg, 03/01/23 15:22:00 EST, Weight Dosing Follow-up No aaron (more content not included)... [facility] Comment on above: Result Comment: Elec tronically Signed By: Carolyn Benoit\.br\Date and Time Signed: 03/01/23 15:38 EST Patient Logson 02-14-2023 Patient Logs [id number] 0TIFF [facility] ED Note-Physicianon 02-14-20 ED Note-Physician [id number] 0TIFF [facility] Family Medicine Office/Clini c Noteon 02-13-2023 Family Medicine Office/Clinic Note HPI Staff Rafi is a 68 year old female presenting for ER follow up ER followup: Hospital: [place] Visit date: 02/12/23 Symptoms the patient presented with: elevated bp, chest tightness, malaise Current concerns: flu: UTD pt states blood pressure and sugars have been running high. Patient eats a well balanced diet. Pt states since starting the Ozempic she has been nauseated and wanting to sleep all the time. Pt took her first dose on 02/07/23 pt brought blood pressure log before going into ER blood pressure was 171/95 was symptomatic. Upon discharge she was given RX Norvasc 5mg to take daily. Pt hasn't started this yet because she wants to discuss this with Dr Mckeon. History of Present Illness Here for ER follow up. - Elevated BP with Chest discomfort. Review of Systems PHQ Score Initial Depression Screen Score: 0 SCORE Physical Exam Vitals & Measurements HR: 80(Peripheral) RR: 18 BP: 138/80 SpO2: 98% WT: 63.8 kg WT: 140.36 lb General: alert, no acute distress ENMT: oral mucosa moist, Cardiovascular: regular rate and rhythm, normal peripheral perfusion Respiratory: Lungs CTA, respirations non labored Extremities: no deformity, no trauma Neurological: oriented x 4, LOC appropriate for age, CN II-XII intact, motor strength equal & normal bilaterally, speech normal Abdomen: Soft, Nontender, Non-distended, + BS Assessment/Plan 1. GERD without esophagitis (K21.9: Gastro-esophageal reflux disease without esophagitis) Nausea with Ozempic Will start PPI BID day of the shot and saima the rest of the week. Discussed this in detail with the patient. 2. Type 2 diabetes mellitus with hyperlipidemia (E11.69: Type 2 diabetes mellitus with other specified complication) - Improving with Ozempic. - Set goals with the patient. - Struggling with the Freestyle only covering 28 out of 30 days 3. HTN (hypertension) (I10: Essential (primary) hypertension) - At goal on recheck - Set a good goal for the patient - Will add 2.5mg of norvasc to help when it goes high. - Pt will monitor and let me know how she is doing. 4. BMI 26.0-26.9,adult (Z68.26: Body mass index [BMI] 26.0-26.9, adult) - BMI education given 5. Non-smoker (Z78.9: Other specified health status) - Please continue to not smoke. Total time spent preparing for the encounter, evaluating and assessing the patient, documenting the visit, and ordering appropriate follow-up work was 40 minutes. Follow-up No qualifying data available Problem List/Past Medical History Ongoing Aorto-iliac atherosclerosis Benign neoplasm of cerebral meninges BPPV (benign paroxysmal positional vertigo) CHF (congestive heart failure) Colon cancer screening Diabetes 1.5, managed as type 2 Diabetic neuropathy DM type 2 causing vascular disease GERD without esophagitis Hemiplegia affecting left nondominant side High cholesterol HTN (hypertension) Hyperlipidemia, unspecified Hypertensive heart disease with CHF Immunization counseling Injury of left foot Long-term insulin use Palpitations Paroxysmal atrial fibrillation Total bilirubin, elevated Type 2 diabetes mellitus with hyperlipidemia Historical No qualifying data Procedure/Surgical History Open heart surgery (2020), Cataract extraction and insertion of intraocular lens (07/23/2019), Cholecystectomy, Colonoscopy, Tooth extraction, Tubal ligation. Medications aspirin 81 mg Oral EC Tab, 81 mg= 1 tab(s), Oral, Daily atorvastatin 80 mg Tab, 80 mg= 1 tab(s), Oral, Daily, 3 refills docusate sodium 100 mg Cap, 100 mg= 1 cap(s), Oral, BID, PRN, 1 refills Freestyle Lokesh 2 Sensor, See Instructions, 5 refills Freestyle Lokesh Flash Glucose Monitoring 14 Day System ([place]), See Instructions, 11 refills gabapentin 300 mg Cap, 300 mg= 1 cap(s), Oral, Once a day (at bedtime), 3 refills insulin detemir 100 units/mL SC Belen, See Instructions, 3 refills levothyroxine 50 mcg (0.05 mg) Tab, 50 mcg= 1 tab(s), Oral, Daily, 3 refills losartan 100 mg Tab, 100 mg= 1 tab(s), Oral, Daily magnesium oxide 400 mg Tab, 400 mg= 1 tab(s), Oral, Daily, 3 refills metformin 500 mg ER Tab, 500 mg= 1 tab(s), Oral, Daily, 3 refills metoprolol 50 mg ER Tab, 50 mg= 1 tab(s), Oral, Daily, 3 refills Misc DME Prescription, See Instructions NovoLOG FlexPen 100 units/mL injectable solution, See Instructions Ozempic 2 mg/3 mL (0.25 mg or 0.5 mg dose) subcutaneous solution, 0.25 mg, SubCutaneous, qWeek Allergies Latex ([place]) Social History Tobacco - Denies Tobacco Use, 11/02/2021 Never (less than 100 in lifetime) Tobacco Use:. Never Smokeless Tobacco Use:. Household tobacco concerns: No., 02/13/2023 Family History Kidney disease: Grandparent. Stroke: Grandparent. Immunizations Vaccine Date Status Comments influenza virus vaccine, inactivated 12/21/2022 Recorded influenza virus vaccine, inactivated 12/20/2021 Recorded SARS-CoV-2 (COVID-19) [id number] 11/28/2021 Recorded 2022-06-29: [id number] (more content not included)... [facility] Comment on above: Result Comment: Elec tronically Signed By: Mervin SHANNON, Francisco Rudd.br\Date and Time Signed: 02/13/23 14:41 EST RAD - MISCon 02-13-2023 RAD - MISC [id number] 0TIFF Normal [facility] FREE T3on 05-15-2022 FREE T3 2.00 pg/mlL Critically low 2.18-3.98 [facility] Comment on above: Performed By: #### F T3, TSH, BMP #### [facility] [address] [address] [address] Mikayla Haines FREE T4on 05-15-2022 Free T4 [Mass/Vol] 1.13 ng/dL Normal 0.76-1.46 [facility] Comment on above: Performed By: #### F T4 #### [facility] [address] [address] [address] Mikayla Haines GLYCOHEMOGLOBIN A1Con 2022 ADA RECOMMENDATION SEE BELOW Normal [facility] Comment on above: Result Comment: ADA RECOMMENDED LIMIT 4.0 - 6.0 ADA THERAPEUTIC TARGET < 7.0 ACTION SUGGESTED > 7.0 Performed By: #### A 1C #### [facility] [address] [place] [address] Dr. Mikayla Haines Glucose [Mass/Vol] 140 mg/dL Normal [facility] Comment on above: Performed By: #### A 1C #### [facility] [address] [address] [address] Mikayla Haines HbA1c (Bld) [Mass fraction] 6.5 % Critically high 4.5-6.2 [facility] Comment on above: Performed By: #### A 1C #### [facility] [address] [place] [address] Dr. Mikayla Haines PROF CHEM 8 (BAS METB)on Anion gap [Moles/Vol] 7.7 mmol/L Normal [facility] Comment on above: Performed By: #### F T3, TSH, BMP #### [facility] [address] [address] [address] Mikayla Haines Calcium [Mass/Vol] 9.2 mg/dL Normal 8.5-10.1 [facility] Comment on above: Performed By: #### F T3, TSH, BMP #### [facility] [address] [address] [address] Mikayla Haines Chloride [Moles/Vol] 102 mmol/L Normal 98-107 [facility] Comment on above: Performed By: #### F T3, TSH, BMP #### [facility] [address] [address] [address] Mikayla Haines CO2 [Moles/Vol] 33.1 mmol/L Critically high 21.0-32.0 [facility] Comment on above: Performed By: #### F T3, TSH, BMP #### [facility] [address] [address] [address] Mikayla Haines Creatinine [Mass/Vol] 0.62 mg/dL Normal 0.55-1.02 [facility] Comment on above: Performed By: #### F T3, TSH, BMP #### [facility] [address] [address] [address] Mikayla Haines EGFR-AF MOROCCAN >116 Normal >=60 [facility] Comment on above: Performed By: #### F T3, TSH, BMP #### [facility] [address] [address] [address] Mikayla Haines EGFR-NON AF MOROCCAN >95 Normal >=60 [facility] Comment on above: Performed By: #### F T3, TSH, BMP #### [facility] [address] [address] [address] Mikayla Haines Glucose [Mass/Vol] 182 mg/dL Critically high 74-106 [facility] Comment on above: Performed By: #### F T3, TSH, BMP #### [facility] [address] [address] [address] Mikayla Haines Potassium [Moles/Vol] 3.8 mmol/L Normal 3.5-5.1 [facility] Comment on above: Performed By: #### F T3, TSH, BMP #### [facility] [address] [address] [address] Mikayla Haines Sodium [Moles/Vol] 139 mmol/L Normal 136-145 [facility] Comment on above: Performed By: #### F T3, TSH, BMP #### [facility] [address] [address] [address] Mikayla Haines Urea nitrogen [Mass/Vol] 25.0 mg/dL Critically high 7.0-18.0 [facility] Comment on above: Performed By: #### F T3, TSH, BMP #### [facility] [address] [place] [address] Dr. Mikayla Haines Urea nitrogen/Creatinine [Mass ratio] 40.3 mg/mg Normal [facility] Comment on above: Performed By: #### F T3, TSH, BMP #### [facility] [address] [place] [address] Dr. Mikayla Haines TSHon 05-15-2022 TSH 1.499 uIU/mL Normal 0.358-3.740 [facility] Comment on above: Performed By: #### F T3, TSH, BMP #### [facility] [address] [place] [address] Dr. Mikayla Haines BNPon 04-23-2022 Natriuretic peptide B (Bld) [Mass/Vol] 409.0 pg/mL Normal <=900.0 [facility] Comment on above: Performed By: #### F T3, TSH, BMP #### [facility] [address] [place] [address] Dr. Mikayla Haines CBC AUTO DIFFon 04-23-2022 BASO # 0.0 103/ul Normal 0.0-0.1 [facility] Comment on above: Performed By: #### F T3, TSH, BMP #### [facility] [address] [place] [address] Dr. Mikayla Haines Basophils/100 WBC (Bld) 0.5 % Normal 0.2-2.0 [facility] Comment on above: Performed By: #### F T3, TSH, BMP #### [facility] [address] [place] [address] Dr. Mikayla Haines EO # 0.3 103/ul Normal 0.0-0.7 [facility] Comment on above: Performed By: #### F T3, TSH, BMP #### [facility] [address] [place] [address] Dr. Mikayla Haines Eosinophils/100 WBC (Bld) 6.3 % Normal 0.9-7.0 [facility] Comment on above: Performed By: #### F T3, TSH, BMP #### [facility] [address] [place] [address] Dr. Mikayla Haines Erythrocyte distribution width (RBC) [Ratio] 12.7 % Normal 11.0-15.0 [facility] Comment on above: Performed By: #### F T3, TSH, BMP #### [facility] [address] [place] [address] Dr. Mikayla Haines Hematocrit (Bld) [Volume fraction] 38.3 % Normal 36.0-48.0 [facility] Comment on above: Performed By: #### F T3, TSH, BMP #### [facility] [address] [place] [address] Dr. Mikayla Haines Hemoglobin (Bld) [Mass/Vol] 12.6 g/dL Normal 12.0-16.0 [facility] Comment on above: Performed By: #### F T3, TSH, BMP #### [facility] [address] [place] [address] Dr. Mikayla Haines IG # 0.01 10e3/ul Normal 0.00-0.03 [facility] Comment on above: Performed By: #### F T3, TSH, BMP #### [facility] [address] [place] [address] Dr. Mikayla Haines IG % 0.3 % Normal 0.0-0.5 [facility] Comment on above: Performed By: #### F T3, TSH, BMP #### [facility] [address] [place] [address] Dr. Mikayla Haines LYMPH # 1.2 103/ul Normal 1.2-3.8 [facility] Comment on above: Performed By: #### F T3, TSH, BMP #### [facility] [address] [place] [address] Dr. Mikayla Haines Lymphocytes/100 WBC (Bld) 30.4 % Normal 20.5-60.0 [facility] Comment on above: Performed By: #### F T3, TSH, BMP #### [facility] [address] [place] [address] Dr. Mikayla Haines MANUAL DIFF REQ NO Normal [facility] Comment on above: Performed By: #### F T3, TSH, BMP #### [facility] [address] [place] [address] Dr. Mikayla Haines MCH (RBC) [Entitic mass] 30.4 pg Normal 26.7-34.0 [facility] Comment on above: Performed By: #### F T3, TSH, BMP #### [facility] [address] [place] [address] Dr. Mikayla Haines MCHC (RBC) [Mass/Vol] 32.9 g/dL Normal 29.9-35.2 [facility] Comment on above: Performed By: #### F T3, TSH, BMP #### [facility] [address] [place] [address] Dr. Mikayla Hianes MCV (RBC) [Entitic vol] 92.5 fL Normal 81.0-99.0 [facility] Comment on above: Performed By: #### F T3, TSH, BMP #### [facility] [address] [place] [address] Dr. Mikayla Haines MONO # 0.5 103/ul Normal 0.3-0.8 [facility] Comment on above: Performed By: #### F T3, TSH, BMP #### [facility] [address] [place] [address] Dr. Mikayla Haines Monocytes/100 WBC (Bld) 11.4 % Normal 1.7-12.0 [facility] Comment on above: Performed By: #### F T3, TSH, BMP #### [facility] [address] [place] [address] Dr. Mikayla Haines NEUT # 2.0 103/ul Normal 1.4-6.5 [facility] Comment on above: Performed By: #### F T3, TSH, BMP #### [facility] [address] [place] [address] Dr. Mikayla Haines Neutrophils/100 WBC (Bld) 51.1 % Normal 43.0-75.0 [facility] Comment on above: Performed By: #### F T3, TSH, BMP #### [facility] [address] [place] [address] Dr. Mikayla Haines Platelet mean volume (Bld) [Entitic vol] 10.5 fL Normal 9.5-13.5 [facility] Comment on above: Performed By: #### F T3, TSH, BMP #### [facility] [address] [place] [address] Dr. Mikayla Haines PLT 166 103/ul Normal 150-450 [facility] Comment on above: Performed By: #### F T3, TSH, BMP #### [facility] [address] [place] [address] Dr. Mikayla Haines RBC 4.14 106/ul Critically low 4.20-5.40 [facility] Comment on above: Performed By: #### F T3, TSH, BMP #### [facility] [address] [place] [address] Dr. Mikayla Haines WBC 4.0 103/ul Normal 4.0-11.0 [facility] Comment on above: Performed By: #### F T3, TSH, BMP #### [facility] [address] [place] [address] Dr. Mikayla Haines FREE T3on 04-23-2022 FREE T3 2.07 pg/mlL Critically low 2.18-3.98 [facility] Comment on above: Performed By: #### M G, BMP #### [facility] [address] [place] [address] Dr. Mikayla Haines FREE T4on 04-23-2022 Free T4 [Mass/Vol] 0.87 ng/dL Normal 0.76-1.46 [facility] Comment on above: Performed By: #### F T3, TSH, BMP #### [facility] [address] [place] [address] Dr. Mikayla Haines MAGNESIUMon 04-23-2022 Magnesium [Mass/Vol] 1.8 mg/dL Normal 1.8-2.4 [facility] Comment on above: Performed By: #### M G #### [facility] [address] [place] [address] Dr. Mikayla Haines PROF CHEM 8 (BAS METB)on Anion gap [Moles/Vol] 7.5 mmol/L Normal [facility] Comment on above: Performed By: #### F T3, TSH, BMP #### [facility] [address] [place] [address] Dr. Mikayla Haines Calcium [Mass/Vol] 9.0 mg/dL Normal 8.5-10.1 [facility] Comment on above: Performed By: #### F T3, TSH, BMP #### [facility] [address] [address] [address] Mikayla Haines Chloride [Moles/Vol] 105 mmol/L Normal 98-107 [facility] Comment on above: Performed By: #### F T3, TSH, BMP #### [facility] [address] [place] [address] Dr. Mikayla Haines CO2 [Moles/Vol] 30.6 mmol/L Normal 21.0-32.0 [facility] Comment on above: Performed By: #### F T3, TSH, BMP #### [facility] [address] [place] [address] Dr. Mikayla Haines Creatinine [Mass/Vol] 0.73 mg/dL Normal 0.55-1.02 [facility] Comment on above: Performed By: #### F T3, TSH, BMP #### [facility] [address] [place] [address] Dr. Mikayla Haines EGFR-AF MOROCCAN >60 Normal >=[address] [facility] Comment on above: Performed By: #### F T3, TSH, BMP #### [facility] [address] [place] [address] Dr. Mikayla Haines EGFR-NON AF MOROCCAN >60 Normal >=60 [facility] Comment on above: Performed By: #### F T3, TSH, BMP #### [facility] [address] [place] [address] Dr. Mikayla Haines Glucose [Mass/Vol] 273 mg/dL Critically high 74-106 [facility] Comment on above: Performed By: #### F T3, TSH, BMP #### [facility] [address] [address] [address] Mikayla Haines Potassium [Moles/Vol] 3.1 mmol/L Critically low 3.5-5.1 [facility] Comment on above: Performed By: #### F T3, TSH, BMP #### [facility] [address] [address] [address] Mikayla Haines Sodium [Moles/Vol] 140 mmol/L Normal 136-145 [facility] Comment on above: Performed By: #### F T3, TSH, BMP #### [facility] [address] [address] [address] Mikayla Haines Urea nitrogen [Mass/Vol] 20.0 mg/dL Critically high 7.0-18.0 [facility] Comment on above: Performed By: #### F T3, TSH, BMP #### [facility] [address] [place] [address] Dr. Mikayla Haines Urea nitrogen/Creatinine [Mass ratio] 27.4 mg/mg Normal [facility] Comment on above: Performed By: #### F T3, TSH, BMP #### [facility] [address] [place] [address] Dr. Mikayla Haines TROPONIN, HIGH SENSITIVITYon 04-23-2022 HSTROP 7.8 pg/mL Normal 4.0-51.3 [facility] Comment on above: Result Comment: CUT- OFF POINTS HAVE BEEN ESTABLISHED BASED ON THE FOURTH UNIVERSAL DEFINITIONS OF MYOCARDIAL INFARCTION. THE UPPER REFERENCE LIMIT (URL) OF TROPONIN, DEFINED THE 99TH PERCENTILE OF cTnI DISTRIBUTION IN A REFERENCE POPULATION, HAS BEEN CONFIRMED THE DECISION THRESHOLD FOR NE DIAGNOSIS. Performed By: #### H STROPN, BNP, BMP, TSH #### [facility] [address] [place] [address] Dr. Mikayla Haines TSHon 04-23-2022 TSH 6.903 uIU/mL Critically high 0.358-3.740 [facility] Comment on above: Performed By: #### F T3, TSH, BMP #### [facility] [address] [place] [address] Dr. Mikayla Haines XR CHEST 1 Von 04-23-2022 XR CHEST 1 V EXAM: XR CHEST 1 V HISTORY: Palpitations COMPARISON: Acute abdomen series dated 11/01/2021. TECHNIQUE: One view of the chest was obtained. FINDINGS: There are postsurgical changes of the chest with median sternotomy wires and surgical clips in place. The cardiac silhouette is stable in size. Aortic atherosclerotic disease is seen. The lungs are clear. There is no significant pneumothorax or pleural effusion. No acute osseous abnormality is seen. IMPRESSION: 1. No acute cardiopulmonary abnormality. Electronically authenticated by: Jay PEDERSEN Date: 2022-04-23 05:47 Normal [facility] Office Visit (Cardiology)on 01-17-2022 Follow-up visit Diagnoses/Problems Assessed Arteriosclerotic heart disease (ASHD) (414.00) (I25.10) History of myocardial infarction (412) (I25.2) S/P CABG x 3 (V45.81) (Z95.1) Paroxysmal atrial fibrillation (427.31) (I48.0) Hyperlipidemia (272.4) (E78.5) Diabetes mellitus (250.00) (E11.9) Body mass index (BMI) of 23.0 to 23.9 in adult (V85.1) (Z68.23) Never a smoker Essential hypertension, benign (401.1) (I10) Orders Arteriosclerotic heart disease (ASHD) Renew: Aspirin EC 81 MG Oral Tablet Delayed Release; TAKE 1 TABLET DAILY Arteriosclerotic heart disease (ASHD), Diabetes mellitus, Hyperlipidemia Lipid Panel; Status:Active - Retrospective Authorization; Requested for:17Jul2022; Arteriosclerotic heart disease (ASHD), Essential hypertension, benign, History of myocardial infarction, S/P CABG x 3 Stop: Losartan Potassium 25 MG Oral Tablet Arteriosclerotic heart disease (ASHD), Essential hypertension, benign, Hyperlipidemia CRP, High Sensitivity; Status:Active - Retrospective Authorization; Requested for:17Jan2022; Arteriosclerotic heart disease (ASHD), Hyperlipidemia Renew: Atorvastatin Calcium 80 MG Oral Tablet (Lipitor); TAKE 1 TABLET AT BEDTIME Essential hypertension, benign Start: Metoprolol Succinate ER 50 MG Oral Tablet Extended Release 24 Hour; Take 1 tablet daily Essential hypertension, benign, Paroxysmal atrial fibrillation Start: Losartan Potassium 25 MG Oral Tablet; TAKE 1 TABLET BY MOUTH DAILY Hyperlipidemia AST; Status:Active - Retrospective Authorization; Requested for:[id number]; SocHx: Never a smoker Tobacco Use Screening; Status:Complete; Done: 17Jan2022 Patient Instructions Please bring all medicines, vitamins, and herbal supplements with you when you come to the office. Prescriptions will not be filled unless you are compliant with your follow up appointments or have a follow up appointment scheduled as per instruction of your physician. Refills should be requested at the time of your visit. Follow up in 1 year Chief Complaint RAFI ROPER is being seen for a 9 month follow-up of. 66-year-old female returns for follow-up she is doing well she has no angina, heart failure or recurrent hospitalizations. She underwent multivessel CABG in January 2021, for ACS event and failed PCI of the circumflex. She has done well since that time she remains on appropriate guideline directed medical therapies. She is diabetic, normotensive and remains on high-dose statin therapy Recommendations, continue current therapies obtain appropriate laboratories follow-up in 1 year Surgical History Problems History of Cholecystectomy History of Coronary artery bypass graft History of Spinal surgery Current Meds Medication NameInstruction Aspirin EC 81 MG Oral Tablet Delayed ReleaseTAKE 1 TABLET DAILY. Atorvastatin Calcium 80 MG Oral TabletTAKE 1 TABLET AT BEDTIME. Docusate Sodium 100 MG Oral TabletTake 1 tablet twice daily Gabapentin 100 MG TABS1 daily Levemir FlexTouch 100 UNIT/ML Subcutaneous Solution Pen-injectorUSE DIRECTED. Losartan Potassium 25 MG Oral TabletTAKE 0.5 TABLET Daily metFORMIN HCl - 500 MG Oral TabletTAKE 1 TABLET DAILY. Metoprolol Tartrate 25 MG Oral TabletTAKE 1 TABLET Every 6 hours Allergies Medication No Known Drug Allergies Recorded By: Dutch Castellanos; 03/31/2021 11:50:47 AM Social History Problems Never a smoker No alcohol use No caffeine use No illicit drug use Review of Systems Constitutional: not feeling tired. Cardiovascular: no intermittent leg claudication and as noted in HPI. Respiratory: no cough and no shortness of breath. Gastrointestinal: no change in bowel habits and no blood in stools. Integumentary: no skin rashes. Neurological: no seizures and no frequent falls. All other systems have been reviewed and are negative for complaint. Vitals Vital Signs Recorded: 17Jan2022 09:58AM Heart Rate65, L Radial Gocnckyw108, RUE, Sitting Effbenppq64, RUE, Sitting Height5 ft 5 in Wvghsx903 lb 4 oz BMI Xpamlkevnr60.67 kg/m2 BSA Calculated1.71 Tobacco Useb) No PHQ-2 #1. Over the last 2 weeks have you felt down, depressed or hopeless? (If yes, answer PHQ-9 below)No PHQ-2 #2. Over the last 2 weeks have you felt little interest or pleasure in doing things? (If yes, answer PHQ-9 below)No Falls Screening (Age 18+)a) No falls within the last year Physical Exam Constitutional: alert and in no acute distress. Neck: neck is supple, symmetric, trachea midline, no masses and no thyromegaly . Pulmonary: no increased work of breathing or signs of respiratory distress and lungs clear to auscultation. Cardiovascular: carotid pulses 2+ bilaterally with no bruit , JVP was normal, no thrills , regular rhythm, normal S1 and S2, no murmurs , pedal pulses 2+ bilaterally and no edema . Abdomen: abdomen non-tender, no masses and no hepatomegaly . Skin: skin warm and dry, normal skin turgor . Psychiatric judgment and insight is normal (more content not included)... Normal Consult A Doctor Tobacco Screening.on 022 Adult depression screening assessment No [facility] DO Work Phone: Fall risk assessment a) No falls within the last year [facility] DO Work Phone: Tobacco use status CP b) No [facility] DO Work Phone: GLYCOHEMOGLOBIN A1Con 2021 ADA RECOMMENDATION SEE BELOW Normal [facility] Comment on above: Result Comment: ADA RECOMMENDED LIMIT 4.0 - 6.0 ADA THERAPEUTIC TARGET < 7.0 ACTION SUGGESTED > 7.0 Performed By: #### F T3, TSH, BMP #### [facility] [address] [place] [address] Dr. Mikayla Haines Glucose [Mass/Vol] 148 mg/dL Normal [facility] Comment on above: Performed By: #### F T3, TSH, BMP #### [facility] [address] [place], [place] [address] Dr. Mikayla Haines HbA1c (Bld) [Mass fraction] 6.8 % Critically high 4.5-6.2 [facility] Comment on above: Performed By: #### F T3, TSH, BMP #### [facility] [address] [place] [address] Dr. Mikayla Haines CBC AUTO DIFFon 12-10-2021 BASO # 0.0 103/ul Normal 0.0-0.1 [facility] Comment on above: Performed By: #### F T3, TSH, BMP #### [facility] [address] [place] [address] Dr. Mikayla Haines Basophils/100 WBC (Bld) 0.5 % Normal 0.2-2.0 [facility] Comment on above: Performed By: #### F T3, TSH, BMP #### [facility] [address] [place] [address] Dr. Mikayla Haines EO # 0.3 103/ul Normal 0.0-0.7 [facility] Comment on above: Performed By: #### F T3, TSH, BMP #### [facility] [address] [place] [address] Dr. Mikayla Haines Eosinophils/100 WBC (Bld) 5.1 % Normal 0.9-7.0 [facility] Comment on above: Performed By: #### F T3, TSH, BMP #### [facility] [address] [place] [address] Dr. Mikayla Haines Erythrocyte distribution width (RBC) [Ratio] 12.5 % Normal 11.0-15.0 [facility] Comment on above: Performed By: #### F T3, TSH, BMP #### [facility] [address] [place] [address] Dr. Mikayla Haines Hematocrit (Bld) [Volume fraction] 39.6 % Normal 36.0-48.0 [facility] Comment on above: Performed By: #### F T3, TSH, BMP #### [facility] [address] [place] [address] Dr. Mikayla Haines Hemoglobin (Bld) [Mass/Vol] 13.4 g/dL Normal 12.0-16.0 [facility] Comment on above: Performed By: #### F T3, TSH, BMP #### [facility] [address] [address] [address] Mikayla Haines IG # 0.01 10e3/ul Normal 0.00-0.03 [facility] Comment on above: Performed By: #### F T3, TSH, BMP #### [facility] [address] [address] [address] Mikayla Haines IG % 0.2 % Normal 0.0-0.5 [facility] Comment on above: Performed By: #### F T3, TSH, BMP #### [facility] [address] [address] [address] Mikayla Haines LYMPH # 1.3 103/ul Normal 1.2-3.8 [facility] Comment on above: Performed By: #### F T3, TSH, BMP #### [facility] [address] [address] [address] Mikayla Haines Lymphocytes/100 WBC (Bld) 22.5 % Normal 20.5-60.0 [facility] Comment on above: Performed By: #### F T3, TSH, BMP #### [facility] [address] [place] [address] Dr. Mikayla Haines MANUAL DIFF REQ NO Normal [facility] Comment on above: Performed By: #### F T3, TSH, BMP #### [facility] [address] [address] [address] Mikayla Haines MCH (RBC) [Entitic mass] 30.5 pg Normal 26.7-34.0 [facility] Comment on above: Performed By: #### F T3, TSH, BMP #### [facility] [address] [address] [address] Mikayla Haines MCHC (RBC) [Mass/Vol] 33.8 g/dL Normal 29.9-35.2 [facility] Comment on above: Performed By: #### F T3, TSH, BMP #### [facility] [address] [address] [address] Mikayla Haines MCV (RBC) [Entitic vol] 90.0 fL Normal 81.0-99.0 [facility] Comment on above: Performed By: #### F T3, TSH, BMP #### [facility] [address] [place] [address] Dr. Mikayla Haines MONO # 0.6 103/ul Normal 0.3-0.8 [facility] Comment on above: Performed By: #### F T3, TSH, BMP #### [facility] [address] [place] [address] Dr. Mikayla Haines Monocytes/100 WBC (Bld) 9.3 % Normal 1.7-12.0 [facility] Comment on above: Performed By: #### F T3, TSH, BMP #### [facility] [address] [place] [address] Dr. Mikayla Haines NEUT # 3.7 103/ul Normal 1.4-6.5 [facility] Comment on above: Performed By: #### F T3, TSH, BMP #### [facility] [address] [place] [address] Dr. Mikayla Haines Neutrophils/100 WBC (Bld) 62.4 % Normal 43.0-75.0 [facility] Comment on above: Performed By: #### F T3, TSH, BMP #### [facility] [address] [place] [address] Dr. Mikayla Haines Platelet mean volume (Bld) [Entitic vol] 9.6 fL Normal 9.5-13.5 [facility] Comment on above: Performed By: #### F T3, TSH, BMP #### [facility] [address] [place] [address] Dr. Mikayla Haines PLT 179 103/ul Normal 150-450 [facility] Comment on above: Performed By: #### F T3, TSH, BMP #### [facility] [address] [place] [address] Dr. Mikayla Haines RBC 4.40 106/ul Normal 4.20-5.40 [facility] Comment on above: Performed By: #### F T3, TSH, BMP #### [facility] [address] [place], [place] [id number] Dr. Mikayla Haines WBC 5.9 103/ul Normal 4.0-11.0 [facility] Comment on above: Performed By: #### F T3, TSH, BMP #### [facility] [address] [place] [address] Dr. Mikayla Haines CRPon 12-10-2021 CRP [Mass/Vol] mg/L Normal <=1.0 [facility] Comment on above: Performed By: #### F T3, TSH, BMP #### [facility] [address] [place] [address] FACIAL BONES WO CONon CT FACIAL BONES WO CON EXAMINATION: CT FACIAL BONES WO CON CLINICAL INDICATION: . TECHNIQUE: Axial CT images of the maxillofacial bones were obtained. Images were then reconstructed in the coronal plane using source data. There was no intravenous contrast administered. Automated dose lowering techniques and/or adjustment according to patient size were utilized for this examination. COMPARISON: None at the time of this dictation. FINDINGS: The presence of dental amalgam causes streak artifact that obscures portions of the mandible and maxilla and the soft tissues of the oral cavity and oropharynx thus limiting evaluation in these regions. There are no acute fractures of the maxillofacial bones, mandible, or imaged portions of the skull base and temporal bones. There is no mandibular subluxation or dislocation. There is no soft tissue swelling. The paranasal sinuses, mastoid air cells, and middle ear cavities are clear. IMPRESSION: 1. No acute maxillofacial fracture visualized. Electronically authenticated by: LUCILA KNIGHT Date: 2021-12-10 01:24 Normal [facility] PROF CHEM 8 (BAS METB)on Anion gap [Moles/Vol] 6.8 mmol/L Normal [facility] Comment on above: Performed By: #### F T3, TSH, BMP #### [facility] [address] [place] [address] Dr. Mikayla Haines Calcium [Mass/Vol] 8.7 mg/dL Normal 8.5-10.1 [facility] Comment on above: Performed By: #### F T3, TSH, BMP #### [facility] [address] [address] [address] Mikayla Haines Chloride [Moles/Vol] 105 mmol/L Normal 98-107 [facility] Comment on above: Performed By: #### F T3, TSH, BMP #### [facility] [address] [place] [address] Dr. Mikayla Haines CO2 [Moles/Vol] 32.6 mmol/L Critically high 21.0-32.0 [facility] Comment on above: Performed By: #### F T3, TSH, BMP #### [facility] [address] [address] [address] Mikayla Haines Creatinine [Mass/Vol] 0.97 mg/dL Normal 0.55-1.02 [facility] Comment on above: Performed By: #### F T3, TSH, BMP #### [facility] [address] [place] [address] Dr. Mikayla Haines EGFR-AF MOROCCAN >60 Normal >=60 [facility] Comment on above: Performed By: #### F T3, TSH, BMP #### [facility] [address] [place] [address] Dr. Mikayla Haines EGFR-NON AF MOROCCAN 57 mL/min/1.73m2 Critically low >=60 [facility] Comment on above: Performed By: #### F T3, TSH, BMP #### [facility] [address] [place] [address] Dr. Mikayla Haines Glucose [Mass/Vol] 144 mg/dL Critically high 74-106 [facility] Comment on above: Performed By: #### F T3, TSH, BMP #### [facility] [address] [place] [address] Dr. Mikayla Haines Potassium [Moles/Vol] 3.4 mmol/L Critically low 3.5-5.1 [facility] Comment on above: Performed By: #### F T3, TSH, BMP #### [facility] [address] [address] [address] Miakyla Haines Sodium [Moles/Vol] 141 mmol/L Normal 136-145 [facility] Comment on above: Performed By: #### F T3, TSH, BMP #### [facility] [address] [place], [place] [address] Dr. iMkayla Haines Urea nitrogen [Mass/Vol] 24.0 mg/dL Critically high 7.0-18.0 [facility] Comment on above: Performed By: #### F T3, TSH, BMP #### [facility] [address] [place], [place] [address] Dr. Mikayla Haines Urea nitrogen/Creatinine [Mass ratio] 24.7 mg/mg Normal [facility] Comment on above: Performed By: #### F T3, TSH, BMP #### [facility] [address] [place], [place] [address] Dr. Mikayla Haines XR ABD FLAT UP_PA Angelina 11-02 XR ABD FLAT UP_PA CH EXAMINATION: XR ABD FLAT UP_PA CH HISTORY: Right upper quadrant pain COMPARISON: XR KUB 09/26/2021, XR chest 02/09/2021 FINDINGS: LUNGS: No infiltrate, pneumothorax, or pleural effusion. MEDIASTINUM: Sternotomy since prior study. No abnormal mediastinal widening. BOWEL GAS PATTERN: Large amount of stool throughout colon. No evidence of obstruction. FREE AIR: None. CALCIFICATIONS: None significant. BONES: No fracture or visible bone lesion. OTHER: Right upper quadrant surgical clips. IMPRESSION: 1. No acute cardiopulmonary process. 2. Large stool burden; possible constipation. No bowel obstruction. Electronically authenticated by: DAGOBERTO SRIVASTAVA Date: 2021-11-02 16:34 Normal [facility] XR KUB 1 VIEWon 09-27-2021 XR KUB 1 VIEW PLAIN FILM OF THE ABDOMEN HISTORY: Abdominal pain. COMPARISON: None. TECHNIQUE: 1 view of the abdomen/pelvis submitted for review. FINDINGS: Hips are seen within the abdomen. There is mild retention of stool in the bowel. There is no evidence of free air. The bowel gas pattern is nonobstructive. There are no abnormal calcifications. However, evaluation of the renal shadows is limited due to overlying bowel gas. No portal venous air. Osseous structures appear within normal limits for age. Vascular calcifications are present. IMPRESSION: 1. Nonobstructive bowel gas pattern. 2. Moderate retention of stool. 3. Postop clips are seen in the right side of the abdomen. Electronically authenticated by: PADMINI JOHNSON Date: 2021-09-26 22:50 Normal [facility] CBC W MANUAL DIFFon 09-27-19 22 ATYPICAL LYMPH # Normal [facility] Comment on above: Performed By: #### F T3, TSH, BMP #### [facility] [address] [place] [address] Dr. Mikayla Haines ATYPICAL LYMPH % Normal [facility] Comment on above: Performed By: #### F T3, TSH, BMP #### [facility] [address] [address] [address] Mikayla Haines BAND # Normal 0.0-0.3 [facility] Comment on above: Performed By: #### F T3, TSH, BMP #### [facility] [address] [place] [address] Dr. Mikayla Haines BAND % Normal 0-5 [facility] Comment on above: Performed By: #### F T3, TSH, BMP #### [facility] [address] [place] [address] Dr. Mikayla Haines BASOM # 0.00 103/ul Normal 0.00-0.10 [facility] Comment on above: Performed By: #### F T3, TSH, BMP #### [facility] [address] [place] [address] Dr. Mikayla Haines BASOM % 0.0 % Critically low 0.2-2.0 [facility] Comment on above: Performed By: #### F T3, TSH, BMP #### [facility] [address] [address] [address] Mikayla Haines BLAST # Normal [facility] Comment on above: Performed By: #### F T3, TSH, BMP #### [facility] [address] [place] [address] Dr. Mikayla Haines BLAST % Normal [facility] Comment on above: Performed By: #### F T3, TSH, BMP #### [facility] [address] [place] [address] Dr. Mikayla Haines CORRECTED WBC Normal 4.0-11.0 The [facility] Comment on above: Performed By: #### F T3, TSH, BMP #### [facility] [address] [address] [address] Mikayla Haines EOS # 0.23 103/ul Normal 0.00-0.70 [facility] Comment on above: Performed By: #### F T3, TSH, BMP #### [facility] [address] [address] [address] Mikayla Haines EOS% 4.0 % Normal 0.9-7.0 [facility] Comment on above: Performed By: #### F T3, TSH, BMP #### [facility] [address] [address] [address] Mikayla Haines HCT 36.5 % Normal 36.0-48.0 [facility] Comment on above: Performed By: #### F T3, TSH, BMP #### [facility] [address] [place] [address] Dr. Mikayla Haines HGB 12.3 g/dl Normal 12.0-16.0 [facility] Comment on above: Performed By: #### F T3, TSH, BMP #### [facility] [address] [place] [address] Dr. Mikayla Haines LYMPHM # 1.45 103/ul Normal 1.20-3.80 [facility] Comment on above: Performed By: #### F T3, TSH, BMP #### [facility] [address] [place] [address] Dr. Mikayla Haines LYMPHM% 25.0 % Normal 20.5-60.0 The [facility] Comment on above: Performed By: #### F T3, TSH, BMP #### [facility] [address] [address] [address] Mikayla Haines MCH 30.5 pg Normal 26.7-34.0 The [facility] Comment on above: Performed By: #### F T3, TSH, BMP #### [facility] [address] [place] [address] Dr. Mikayla Haines MCHC 33.7 g/dl Normal 29.9-35.2 The [facility] Comment on above: Performed By: #### F T3, TSH, BMP #### [facility] [address] [address] [address] Mikayla Haines MCV 90.6 fL Normal 81.0-99.0 [facility] Comment on above: Performed By: #### F T3, TSH, BMP #### [facility] [address] [place] [address] Dr. Mikayla Haines METAMYELOCYTE # Normal The [facility] Comment on above: Performed By: #### F T3, TSH, BMP #### [facility] [address] [place] [address] Dr. Mikayla Haines METAMYELOCYTE % Normal [facility] Comment on above: Performed By: #### F T3, TSH, BMP #### [facility] [address] [place] [address] Dr. Mikayla Haines MONOM# 0.52 103/ul Normal 0.30-0.80 [facility] Comment on above: Performed By: #### F T3, TSH, BMP #### [facility] [address] [place] [address] Dr. Mikayla Haines MONOM% 9.0 % Normal 1.7-12.0 [facility] Comment on above: Performed By: #### F T3, TSH, BMP #### [facility] [address] [place] [address] Dr. Mikayla Haines MPV 9.3 fL Critically low 9.5-13.5 [facility] Comment on above: Performed By: #### F T3, TSH, BMP #### [facility] [address] [place] [address] Dr. Mikayla Haines MYELOCYTE # Normal The [facility] Comment on above: Performed By: #### F T3, TSH, BMP #### [facility] [address] [place] [address] Dr. Mikayla Haines MYELOCYTE % Normal The [facility] Comment on above: Performed By: #### F T3, TSH, BMP #### [facility] [address] [place] [address] Dr. Mikayla Haines NRBC Normal The [facility] Comment on above: Performed By: #### F T3, TSH, BMP #### [facility] [address] [address] [address] Mikayla Haines PLT 176 103/ul Normal 150-450 [facility] Comment on above: Performed By: #### F T3, TSH, BMP #### [facility] [address] [place], [place] [address] Dr. Mikayla Haines RBC 4.03 106/ul Critically low 4.20-5.40 [facility] Comment on above: Performed By: #### F T3, TSH, BMP #### [facility] [address] [address] [address] Mikayla Haines RDW 12.2 % Normal 11.0-15.0 [facility] Comment on above: Performed By: #### F T3, TSH, BMP #### [facility] [address] [address] [address] Mikayla Haines SEG # 3.60 103/ul Normal 1.40-6.50 [facility] Comment on above: Performed By: #### F T3, TSH, BMP #### [facility] [address] [address] [address] Mikayla Haines SEG % 62.0 % Normal 43.0-75.0 [facility] Comment on above: Performed By: #### F T3, TSH, BMP #### [facility] [address] [address] [address] Mikayla Haines WBC 5.8 103/ul Normal 4.0-11.0 The [facility] Comment on above: Performed By: #### F T3, TSH, BMP #### [facility] [address] [address] ABD/PELVIS WO CONon 09-26 CT ABD/PELVIS WO CON EXAM: CT ABD/PELVIS WO CON STUDY DATE: 09/26/2021 5:37 PM MDT COMPARISONS: None. INDICATION: CALCULUS OF KIDNEY ; left flank pain TECHNIQUE: Helically acquired multidetector CT of the abdomen and pelvis without the administration of intravenous contrast. No oral contrast was administered. Images were reconstructed in the axial plane and reformatted in coronal and sagittal planes. Dose reduction technique used: Automatic exposure control and/or adjustment of the mA and/or kV according to patient size and/or use of degenerative reconstruction technique. FINDINGS: Within the limits of this noncontrast exam; Chest: Small left pleural effusion. Postsurgical changes of sternotomy with approximately 4 mm osseous gapping at the inferior sternum/xiphoid. Liver: A 4 mm left hepatic lobe hypodensity is too small to accurately characterize, likely of benign etiology. Gallbladder and Bile Ducts: Gallbladder is surgically absent. No biliary dilatation. Kidney: Left 2 mm UPJ/proximal ureter stone results in mild upstream left hydronephrosis and perirenal stranding. No right renal stone or hydronephrosis. Left superior pole water attenuation 2.4 cm renal cyst. Adrenals: Left adrenal gland thickening. Spleen: Tortuous splenic artery with diffuse atherosclerotic calcifications. Otherwise, normal appearing spleen. Pancreas: Diffuse pancreatic atrophy. Bowel and stomach: No bowel dilation. Appendix: Incidental note is made of a normal appearing appendix. Pelvis: Uterus appears within normal limits. Ovaries are not visualized. Mesentery/peritoneum: Linear hyperdensities in Morison's pouch are most compatible with surgical clips, likely from patient's cholecystectomy. Nodes: No pathologic lymphadenopathy. Vasculature: Aortoiliac atherosclerotic calcifications without aneurysmal dilation. Bone: Osteopenia. Multilevel degenerative changes of the visualized spine with severe disc space loss and degenerative changes at the L5-S1. No acute osseous abnormality. Soft tissues: Normal. IMPRESSION: 1. Obstructive left UPJ/proximal ureter stone with mild upstream hydronephrosis and perirenal stranding. 2. Small left pleural effusion. 3. Partially visualized changes of median sternotomy with approximately 4 mm cortical gapping at the xiphoid. 4. Left superior pole renal cyst. Electronically authenticated by: LAMBERTO DOLAN Date: 2021-09-26 20:48 Normal The [facility] CULTURE URINEon 09-26-2021 CULTURE URINE Culture Observations : NO GROWTH. Normal The [facility] Comment on above: Performed By: #### F T3, TSH, BMP #### [facility] [address] [address] [address] Mikayla WILCOX URINE PROFILEon 2 Bilirubin Ql (U) Negative Normal NEGATIVE The [facility] Comment on above: Performed By: #### F T3, TSH, BMP #### [facility] [address] [address] [address] Mikayla Haines Clarity (U) CLEAR Normal CLEAR The [facility] Comment on above: Performed By: #### F T3, TSH, BMP #### [facility] [address] [address] [address] Mikayla Haines Color (U) LT. YELLOW Normal YELLOW The [facility] Comment on above: Performed By: #### F T3, TSH, BMP #### [facility] [address] [place] [address] Dr. Mikayla WAYNE A micrscopic examination will be performed if indicated. Normal The [facility] Comment on above: Performed By: #### F T3, TSH, BMP #### [facility] [address] [place] [address] Dr. Mikayla Haines Glucose Ql (U) 250 mg/dl Abnormal NEGATIVE The [facility] Comment on above: Performed By: #### F T3, TSH, BMP #### [facility] [address] [place] [address] Dr. Mikayla Haines Hemoglobin Ql (U) LARGE Abnormal NEGATIVE The [facility] Comment on above: Performed By: #### F T3, TSH, BMP #### [facility] [address] [place] [address] Dr. Mikayla Haines Ketones Ql (U) Negative Normal NEGATIVE The [facility] Comment on above: Performed By: #### F T3, TSH, BMP #### [facility] [address] [address] [address] Mikayla Haines LEUKOCYTES Negative Normal NEGATIVE [facility] Comment on above: Performed By: #### F T3, TSH, BMP #### [facility] [address] [address] [address] Mikayla Haines Nitrite Ql (U) Negative Normal NEGATIVE The [facility] Comment on above: Performed By: #### F T3, TSH, BMP #### [facility] [address] [place] [address] Dr. Mikayla Haines pH (U) 7.5 [pH] Normal 5-9 The [facility] Comment on above: Performed By: #### F T3, TSH, BMP #### [facility] [address] [place] [address] Dr. Mikayla Haines SPEC GRAVITY 1.015 Normal 1.005-<=1.02 5 [facility] Comment on above: Performed By: #### F T3, TSH, BMP #### [facility] [address] [place] [address] Dr. Mikayla Haines UA PROTEIN Negative Normal NEGATIVE/ TRACE [facility] Comment on above: Performed By: #### F T3, TSH, BMP #### [facility] [address] [place] [address] Dr. Mikayla Haines UR MICRO IND INDICATED Normal [facility] Comment on above: Performed By: #### F T3, TSH, BMP #### [facility] [address] [place] [address] Dr. Mikayla Haines Urobilinogen Qn (U) 0.2 {Jayesh'U}/dL Normal 0.2 - 1. 0 [facility] Comment on above: Performed By: #### F T3, TSH, BMP #### [facility] [address] [place] [address] Dr. Mikayla Haines LACTATE/LACTIC ACIDon 2021 Lactate [Moles/Vol] 1.5 mmol/L Normal 0.4-1.9 [facility] Comment on above: Performed By: #### F T3, TSH, BMP #### [facility] [address] [place] [address] Dr. Mikayla Haines PROF 14(COMP METB)on 022 Albumin [Mass/Vol] 3.5 g/dL Normal 3.4-5.0 [facility] Comment on above: Performed By: #### F T3, TSH, BMP #### [facility] [address] [place] [address] Dr. Mikayla Haines Albumin/Globulin [Mass ratio] 1.4 {ratio} Normal [facility] Comment on above: Performed By: #### F T3, TSH, BMP #### [facility] [address] [place] [address] Dr. Mikayla Haines ALP [Catalytic activity/Vol] 77 U/L Normal 46-116 [facility] Comment on above: Performed By: #### F T3, TSH, BMP #### [facility] [address] [address] [address] Mikayla Haines ALT [Catalytic activity/Vol] 41 U/L Normal 14-59 [facility] Comment on above: Performed By: #### F T3, TSH, BMP #### [facility] [address] [address] [address] Mikayla Haines Anion gap [Moles/Vol] 7.4 mmol/L Normal [facility] Comment on above: Performed By: #### F T3, TSH, BMP #### [facility] [address] [place] [address] Dr. Mikayla Haines AST [Catalytic activity/Vol] 24 U/L Normal 15-37 [facility] Comment on above: Performed By: #### F T3, TSH, BMP #### [facility] [address] [place] [address] Dr. Mikayla Haines Bilirubin [Mass/Vol] 1.5 mg/dL Critically high 0.2-1.0 [facility] Comment on above: Performed By: #### F T3, TSH, BMP #### [facility] [address] [place] [address] Dr. Mikayla Haines Calcium [Mass/Vol] 8.7 mg/dL Normal 8.5-10.1 [facility] Comment on above: Performed By: #### F T3, TSH, BMP #### [facility] [address] [place] [address] Dr. Mikayla Haines Chloride [Moles/Vol] 105 mmol/L Normal 98-107 [facility] Comment on above: Performed By: #### F T3, TSH, BMP #### [facility] [address] [place] [address] Dr. Mikayla Haines CO2 [Moles/Vol] 31.8 mmol/L Normal 21.0-32.0 [facility] Comment on above: Performed By: #### F T3, TSH, BMP #### [facility] [address] [address] [address] Mikayla Haines Creatinine [Mass/Vol] 0.80 mg/dL Normal 0.55-1.02 [facility] Comment on above: Performed By: #### F T3, TSH, BMP #### [facility] [address] [address] [address] Mikayla Haines EGFR-AF MOROCCAN >60 Normal >=60 [facility] Comment on above: Performed By: #### F T3, TSH, BMP #### [facility] [address] [address] [address] Mikayla Haines EGFR-NON AF MOROCCAN >60 Normal >=60 [facility] Comment on above: Performed By: #### F T3, TSH, BMP #### [facility] [address] [address] [address] Mikayla Haines Globulin (S) [Mass/Vol] 2.5 g/dL Normal [facility] Comment on above: Performed By: #### F T3, TSH, BMP #### [facility] [address] [address] [address] Mikayla Haines Glucose [Mass/Vol] 144 mg/dL Critically high 74-106 [facility] Comment on above: Performed By: #### F T3, TSH, BMP #### [facility] [address] [address] [address] Mikayla Haines Potassium [Moles/Vol] 3.2 mmol/L Critically low 3.5-5.1 [facility] Comment on above: Performed By: #### F T3, TSH, BMP #### [facility] [address] [address] [address] Mikayla Haines Protein [Mass/Vol] 6.0 g/dL Critically low 6.4-8.2 [facility] Comment on above: Performed By: #### F T3, TSH, BMP #### [facility] [address] [address] [address] Mikayla Haines Sodium [Moles/Vol] 141 mmol/L Normal 136-145 [facility] Comment on above: Performed By: #### F T3, TSH, BMP #### [facility] [address] [place] [address] Dr. Mikayla Haines Urea nitrogen [Mass/Vol] 21.0 mg/dL Critically high 7.0-18.0 [facility] Comment on above: Performed By: #### F T3, TSH, BMP #### [facility] [address] [place] [address] Dr. Mikayla Haines Urea nitrogen/Creatinine [Mass ratio] 26.2 mg/mg Normal The [facility] Comment on above: Performed By: #### F T3, TSH, BMP #### [facility] [address] [place] [address] Dr. Mikayla Haines URINE MICROSCOPIC ONLYon BACTERIA TRACE Abnormal NONE SEEN The [facility] Comment on above: Performed By: #### F T3, TSH, BMP #### [facility] [address] [place] [address] Dr. Mikayla Haines Bacteria identified Cx Nom (U) INDICATED Normal [facility] Comment on above: Performed By: #### F T3, TSH, BMP #### [facility] [address] [place] [address] Dr. Mikayla Haines CAST NONE SEEN Normal NONE SEEN [facility] Comment on above: Performed By: #### F T3, TSH, BMP #### [facility] [address] [place] [address] Dr. Mikayla Haines Crystals LM Nom (Urine sed) NONE SEEN Normal NONE SEEN The [facility] Comment on above: Performed By: #### F T3, TSH, BMP #### [facility] [address] [place] [address] Dr. Mikayla Haines Epithelial cells LM Ql (Urine sed) RARE Normal NONE SEEN /RARE The [facility] Comment on above: Performed By: #### F T3, TSH, BMP #### [facility] [address] [place] [address] Dr. Mikayla Haines MUCOUS NONE SEEN Normal NONE SEEN The [facility] Comment on above: Performed By: #### F T3, TSH, BMP #### [facility] [address] [place] [address] Dr. Mikayla Haines RBC 20-50 Abnormal 0-2 [facility] Comment on above: Performed By: #### F T3, TSH, BMP #### [facility] [address] [place] [address] Dr. Mikayla Haines WBC 0-2 Abnormal NONE SEEN The [facility] Comment on above: Performed By: #### F T3, TSH, BMP #### [facility] [address] [place] [address] Dr. Mikayla Haines GLYCOHEMOGLOBIN A1Con 2021 ADA RECOMMENDATION SEE BELOW Normal [facility] Comment on above: Result Comment: ADA RECOMMENDED LIMIT 4.0 - 6.0 ADA THERAPEUTIC TARGET < 7.0 ACTION SUGGESTED > 7.0 Performed By: #### A 1C #### [facility] [address] [place] [address] Dr. Mikayla Haines Glucose [Mass/Vol] 192 mg/dL Normal [facility] Comment on above: Performed By: #### A 1C #### [facility] [address] [place] [address] Dr. Mikayla Haines HbA1c (Bld) [Mass fraction] 8.3 % Critically high 4.5-6.2 [facility] Comment on above: Performed By: #### A 1C #### [facility] [address] [place] [address] Dr. Mikayla Haines MAGNESIUMon 08-01-2021 Magnesium [Mass/Vol] 2.0 mg/dL Normal 1.8-2.4 [facility] Comment on above: Performed By: #### M G, BMP #### [facility] [address] [place] [address] Dr. Mikayla Haines PROF CHEM 8 (BAS METB)on Anion gap [Moles/Vol] 9.2 mmol/L Normal [facility] Comment on above: Performed By: #### M G, BMP #### [facility] [address] [place] [address] Dr. Mikayla Haines Calcium [Mass/Vol] 8.7 mg/dL Normal 8.5-10.1 [facility] Comment on above: Performed By: #### M G, BMP #### [facility] [address] [address] [address] Mikayla Haines Chloride [Moles/Vol] 102 mmol/L Normal 98-107 [facility] Comment on above: Performed By: #### M G, BMP #### [facility] [address] [address] [address] Mikayla Haines CO2 [Moles/Vol] 32.4 mmol/L Critically high 21.0-32.0 [facility] Comment on above: Performed By: #### M G, BMP #### [facility] [address] [address] [address] Mikayla Haines Creatinine [Mass/Vol] 0.91 mg/dL Normal 0.55-1.02 [facility] Comment on above: Performed By: #### M G, BMP #### [facility] [address] [address] [address] Mikayla Haines EGFR-AF MOROCCAN >60 Normal >=60 [facility] Comment on above: Performed By: #### M G, BMP #### [facility] [address] [address] [address] Mikayla Haines EGFR-NON AF MOROCCAN >60 Normal >=60 [facility] Comment on above: Performed By: #### M G, BMP #### [facility] [address] [address] [address] Mikayla Haines Glucose [Mass/Vol] 232 mg/dL Critically high 74-106 [facility] Comment on above: Performed By: #### M G, BMP #### [facility] [address] [address] [address] Mikayla Haines Potassium [Moles/Vol] 3.6 mmol/L Normal 3.5-5.1 [facility] Comment on above: Performed By: #### M G, BMP #### [facility] [address] [address] [address] Mikayla Haines Sodium [Moles/Vol] 140 mmol/L Normal 136-145 [facility] Comment on above: Performed By: #### M G, BMP #### [facility] [address] [place], [place] [address] Dr. Mikayla Haines Urea nitrogen [Mass/Vol] 33.0 mg/dL Critically high 7.0-18.0 [facility] Comment on above: Performed By: #### M G, BMP #### [facility] [address] [place], [place] [address] Dr. Mikayla Haines Urea nitrogen/Creatinine [Mass ratio] 36.3 mg/mg Normal [facility] Comment on above: Performed By: #### M G, BMP #### [facility] [address] [place], [place] [address] Dr. Mikayla Haines Cardiovas Arrhythmia Result son 04-25-2021 Cardiovas Arrhythmia Results Reason For Visit Reason for Visit: Holter Monitor: RAFI is here for the application of a 24 hour Holter monitor. Ordering Physician: Dr. Jason Alex DO Diagnosis: PAF NO equipment agreement signed. [facility] understands monitor is to be returned on: 04/26/2021 Monitor number [id number] applied. Holter monitor returned with diary and downloaded. Diagnosis/Problems Assessed Paroxysmal atrial fibrillation (427.31) (I48.0) Patient Discussion/Summary Holter monitor printed and placed on Dr. Jason Devlin MD desk to dictate in absnece of Dr. Jason Alex DO Patient underwent 24-hour Holter monitoring for history and her complaints of paroxysmal atrial fibrillation. The following observations are made: 1. Rhythm is sinus with heart rates ranging between 59 and 97 bpm. The average heart rate was 71 bpm. The longest pause was 1.0 seconds. 2. There were 3 isolated PVCs. 3. There is no supraventricular ectopy. 4. There were no symptoms reported. Future Appointments Date/TimeProviderSpeci altySite 10/25/2021 10:00 Jason Rice, [id number] [facility] 2 Jan 250 DO Signatures Electronically signed by : Jason Devlin MD; Apr 28 2021 6:17PM EST (Author) [facility] Office Visit (Cardiology)on 04-19-2021 Follow-up visit Diagnoses/Problems Assessed Arteriosclerotic heart disease (ASHD) (414.00) (I25.10) Diabetes mellitus (250.00) (E11.9) Essential hypertension, benign (401.1) (I10) Paroxysmal atrial fibrillation (427.31) (I48.0) Hyperlipidemia (272.4) (E78.5) Never a smoker Body mass index (BMI) of 21.0 to 21.9 in adult (V85.1) (Z68.21) History of myocardial infarction (412) (I25.2) S/P CABG x 3 (V45.81) (Z95.1) Orders Arteriosclerotic heart disease (ASHD), Essential hypertension, benign, History of myocardial infarction, S/P CABG x 3 IO Holter Monitor up to 48 Hrs; Status:Active - Perform Order,Retrospective Authorization; Requested for:[id number]; Arteriosclerotic heart disease (ASHD), History of myocardial infarction, S/P CABG x 3 Start: Bumetanide 1 MG Oral Tablet; TAKE 1 TABLET EVERY OTHER DAY Cardiac Rehab Referral Evaluation and Treatment Evaluate AND Treat Status: Hold For - Scheduling,Retrospecti ve Authorization Requested for: [id number] Agreement : I agree to have my patient participate in the phase III outpatient cardiac rehabilitation program after completion of the phase II program. Consent : I consent to have my patient participate in the cardiac rehabilitation program. I will continue regular medical care of my patient throughout his/her participation in the program. Individualized Treatment Plan and Exercise Prescription : Defer the patients ITP and exercise prescription to be developed by the staff for your review and approval I authorize the Cardiac Rehabilitation Department to : Current lab values are helpful in order to assess the lipid status and individualize diet therapy. A venous blood sample will be drawn and lipids analyzed at the laboratory I authorize the Cardiac Rehabilitation Department to : Schedule a symptom limited graded exercise test with 12 lead ECG prior to starting cardiac rehabilitation and at discharge, if needed. Start: Losartan Potassium 25 MG Oral Tablet; TAKE 0.5 TABLET Daily Start: Potassium Chloride Henny ER 20 MEQ Oral Tablet Extended Release; TAKE 1 TABLET EVERY OTHER DAY SocHx: Never a smoker Tobacco Use Screening; Status:Complete; Done: 19Apr2021 Unlinked Stop: Bumetanide 1 MG Oral Tablet Stop: Potassium Chloride Henny ER 20 MEQ Oral Tablet Extended Release Patient Instructions By signing my name below, I, Kenyatta Carias LPN ,Scribe, attest that this documentation has been prepared under the direction and in the presence of Dr. Jason Alex DO. All medical record entries made by the Jack were at my direction and personally dictated by me. I have reviewed the chart and agree that the record accurately reflects my personal performance of the history, physical exam, discussion and plan. Please bring all medicines, vitamins, and herbal supplements with you when you come to the office. Prescriptions will not be filled unless you are compliant with your follow up appointments or have a follow up appointment scheduled as per instruction of your physician. Refills should be requested at the time of your visit. Follow up in 6 months Chief Complaint RAFI ROPER is being seen for follow-up of a hospitalization for CABG. Patient is a 66-year-old female who returns following recent non-ST elevation NE, and three-vessel urgent bypass surgery. All this occurred on February 15. Patient had postoperative atrial fibrillation, she is currently in sinus rhythm no longer on amiodarone therapy. She still has significant left lower extremity weakness secondary to vein graft harvesting. She does have symptomatic vertigo with certain forms of exercise (treadmill). She is not performing cardiac rehab as of yet. She has had no angina or heart failure. We reviewed all of her anatomy, her hospitalization, current medications, symptoms. Recommendations: Decrease Bumex to Sunday along with potassium and magnesium dosing; initiate low-grade lisinopril 2.5 mg daily to for completeness of of guideline directed medical therapies, initiate cardiac rehab, will follow-up in 6 months Surgical History Problems History of Cholecystectomy History of Coronary artery bypass graft History of Spinal surgery Current Meds Medication NameInstruction Aspirin EC 81 MG Oral Tablet Delayed ReleaseTAKE 1 TABLET DAILY. Atorvastatin Calcium 80 MG Oral TabletTAKE 1 TABLET AT BEDTIME. Bumetanide 1 MG Oral TabletTAKE 1 TABLET DAILY. Docusate Sodium 100 MG Oral TabletTake 1 tablet twice daily Eliquis 5 MG Oral TabletTake 1 tablet twice daily Levemir FlexTouch 100 UNIT/ML Subcutaneous Solution Pen-injectorUSE DIRECTED. Magnesium Oxide 400 MG Oral TabletTAKE 1 TABLET DAILY. Melatonin 10 MG Oral CapsuleTAKE 1 CAPSULE Bedtime metFORMIN HCl - 500 MG Oral TabletTAKE 1 TABLET DAILY. Metoprolol Tartrate 25 MG Oral TabletTAKE 1 TABLET Every 6 hours Ondansetron HCl - 4 MG Oral Tablet1 tablet every 4-6 hours as needed Potassium Chloride Henny ER 20 MEQ Oral Tablet Exte (more content not included)... Normal Consult A Doctor Tobacco Screening.on 022 Fall risk assessment a) No falls within the last year [facility] Work Phone: Tobacco use status CP b) [facility] Work [facility]: Laboratory - Microbiology an d Antimicrobial susceptibilityon 02-11-2021 SARS-CoV-2 (COVID-19) RNA MIKIE+probe Ql (Unsp spec) [facility] [place] Work Phone: [facility] 09-01-2020 [facility] HNO ID: [id number] Author: Namita Morel RT(R) Service: ? Author Type: Windlasser Type: [facility] Filed: 09/01/2020 10:25 AM Note Text: Radiology Service Progress Note DATE OF SERVICE: September 01, 2020 TIME: 10:10 AM PATIENT IDENTITY VERIFICATION COMPLETED USING TWO (2) STANDARD IDENTIFIERS: Name and Date of confirmed by patient verbally and Name and Date of confirmed by identification band. FALL SCREENING: Has the patient had 2 falls in the last year or 1 fall with injury or currently using an Ambulatory Assistive Device (Walker, Cane, Wheelchair, Crutches, etc.)? No PATIENT GENDER DATA: Female. status: : No status: NO. PATIENT RELEVANT IMPLANT DATA REVIEWED: Yes ALLERGIES: Reviewed and unchanged CONTRAST ALLERGY: NO. EXAM: MRI - CONTRAST TYPE: GROUP II PERIPHERAL IV DATA: Ambulatory: A peripheral IV was started in the Right with a Angio cath: 24 gauge. RADIOLOGY DEPARTMENT: MR; Exam(s) Completed: Head: Routine Brain SIGNATURE: Namita Morel RT(R), RT Oz(R) PATIENT NAME: Rafi Roper DATE: September 01, 2020 TIME: 10:10 AM [facility]IN [facility]W IVCONon 09-01 MRI BRAIN WO/W IVCON * * *Final Report* * * DATE OF EXAM: Sep 01 2020 10:36AM [facility] 0295 - MRI BRAIN WO/W IVCON / PROCEDURE REASON: Benign neoplasm of meninges (HCC) * * * * Physician Interpretation * * * * EXAMINATION: MRI BRAIN WO/W IVCON HISTORY: Benign neoplasm of meninges (HCC). This information is taken directly from the stock order lister system. TECHNIQUE: Routine brain MRI protocol without and with contrast including diffusion and gradient echo images. MQ: MRBWOW_2 Contrast: 13 mL Dotarem IV COMPARISON: None. RESULT: Acute Change: There is no evidence of an acute intracranial process. Hemorrhage: No evidence of prior parenchymal hemorrhage on SWI. Mass Lesion/ Mass Effect: There is a stable well-defined, lobulated extra-axial soft tissue mass abutting the ventral aspect of the left superior and middle frontal gyri which is heterogeneously hypointense on all pulse sequences, demonstrates prominent heterogeneous enhancement following gadolinium administration and is associated with prominent bony thickening/hyperostosi s of the adjacent calvarium compatible with a meningioma. The enhancing component of the meningioma separate from the hyperostosis measures approximately 1.9 x 1.3 x 1.7 cm in greatest AP, transverse, and CC dimensions, respectively and is grossly unchanged. Stable deformation of the adjacent brain parenchyma, but no evidence for any significant reactive change in the brain parenchyma, aggressive infiltration, or gross shift of midline structures. No involvement of the adjacent superior sagittal sinus. In addition to this, there is a small dural based nodule on the order of 12 mm parallel to the inner table of the left temporal calvarium and approximately 5 mm in thickness perpendicular to the calvarium (series 13, image 72 from the previous study in May 2020 and is 11, image 74 on the current exam. This likely represents an additional small stable meningioma. No substantive impact on the adjacent brain. As before, no evidence for left CP angle mass. Chronic Change: Small remote lacunar infarct or prominent perivascular spaces noted in the left caudate head. Parenchyma: No significant volume loss for age. The brain parenchyma is otherwise within normal limits of signal intensity and morphology. Ventricles: Normal caliber and morphology. Skull Base: Hypothalamic and pituitary region are grossly normal. Craniocervical junction is normal. No significant marrow replacement process. Vasculature: A normal flow void is noted in the major dural venous sinuses suggesting patency by spin echo criteria. Other: Incidentally noted is bilateral cataract surgery. IMPRESSION: Stable left frontal convexity meningioma with mild localized mass effect. Additional stable small meningioma along the inner table of the left temporal calvarium which has no substantive impact on the adjacent left frontal brain parenchyma. No acute findings. Based on the axial T2 flow void pattern, proximal intracranial arterial vasculature, major cortical draining veins, and dural venous sinuses are patent. Medium Cycle Salesperson: ZION Transcribe Date/Time: Sep 01 2020 10:41A Dictated by : MIRLANDE OSCAR MD This examination was interpreted and the report reviewed and electronically signed by: MIRLANDE OSCAR MD on Sep 01 2020 11:01AM EST [id number] [facility] 06-02-2020 [facility] Telephone (NSCAMN) RAFI ROPER ([id number]) 1955 F Date Time Provider Department 06/02/20 [facility] During your visit today, we recorded the following information about you: Yenny Oneal RN, RN 06/02/2020 3:35 PM Signed MRI brain w / without contrast reviewed by Dr. Enriquez. Per Dr. Enriquez, repeat MRI in 3 months. Called and spoke w patient who is agreeable w this plan. All questions answered.Yenny Oneal RN, BSN Estimator Binding pager #[phone]. Allergies As of Date: 06/02/2020 Noted Allergy Reaction LATEX 08/21/2011 2 - Rash Date Reviewed: 06/30/2014 Reviewed by: Skyla (Margarita) MARGARITA Blum - Fully Assessed Reason for Visit: Results [95] Prescriptions as of 06/02/2020 Sig: IV CONTRAST (RADIOLOGY PROCED* MRI Brain Inject, intravenous* METFORMIN ER 500 MG 24 HR TAB* Take 500 mg by mouth daily wi* GLYBURIDE 5 MG TABLET Take 5 mg by mouth daily with* * LISINOPRIL 10 MG TABLET Take 1 tablet by mouth once d* * ASPIRIN 81 MG TABLET Take one (1) tablet daily . Problem List As Of Date 06/02/2020 Noted Resolved LATERAL EPICONDYLITIS [M77.10] 05/08/2003 LOOSE BODY-UP/ARM [M24.029] 05/08/2003 SURGERY FOLLOW-UP [V67.0] 07/23/2003 SKIN HYPERTRO/ATROPH NOS [L91.9, L90.9] 05/30/2004 BENIGN WARREN SKIN FACE NEC [D23.30] 05/16/2006 BENIGN WARREN SCALP/SKIN NECK [D23.4] 05/16/2006 BENIGN WARREN SKIN TRUNK [D23.5] 05/16/2006 BENIGN WARREN SKIN ARM [D23.60] 05/16/2006 SEBORRHEIC KERATOSIS INFLAMED [L82.0] 01/22/2007 Actinic keratosis [L57.0] 11/29/2010 Joint capsule tear [T14.8XXA] 08/21/2011 More... Hip pain [M25.559] 08/21/2011 Other seborrheic keratosis [L82.1] 01/12/2012 Skin tag [L91.8] 06/13/2012 Multiple benign nevi [D22.9] 06/13/2012 Atypical nevi [D22.9] 06/17/2013 Meningioma (HCC) [D32.9] 05/07/2020 Encounter Status:Closed by YENNY ONEAL on 06/02/20 [facility] 05-31-2020 [facility] HNO ID: [id number] Author: Art Reyes) [place] Service: ? Author Type: Windlasser Type: Allied Health Filed: 05/31/2020 2:58 PM Note Text: Radiology Service Progress Note DATE OF SERVICE: May 31, 2020 TIME: 2:38 PM PATIENT IDENTITY VERIFICATION COMPLETED USING TWO (2) STANDARD IDENTIFIERS: Name and Date of confirmed by patient verbally and Name and Date of confirmed by identification band. FALL SCREENING: Has the patient had 2 falls in the last year or 1 fall with injury or currently using an Ambulatory Assistive Device (Walker, Cane, Wheelchair, Crutches, etc.)? No PATIENT GENDER DATA: Female. status: : No status: NO. PATIENT RELEVANT IMPLANT DATA REVIEWED: Yes ALLERGIES: Reviewed and unchanged CONTRAST ALLERGY: NO. EXAM: MRI - CONTRAST TYPE: GROUP II PERIPHERAL IV DATA: Ambulatory: A peripheral IV was started in the Right antecubital site with a Butterfly: 23 gauge. RADIOLOGY DEPARTMENT: MR; Exam(s) Completed: Head: Routine Brain SIGNATURE: Julia Giang PATIENT NAME: Rafi Roper DATE: May 31, 2020 TIME: 2:38 PM [facility]RAIN [facility]W IVCONon 05-31 MRI BRAIN WO/W IVCON * * *Final Report* * * DATE OF EXAM: May 31 2020 3:08PM [facility] 0295 - MRI BRAIN WO/W IVCON / PROCEDURE REASON: Benign neoplasm of meninges (HCC) * * * * Physician Interpretation * * * * EXAMINATION: MRI BRAIN WO/W IVCON CLINICAL HISTORY: Left frontal mass and suspicion of posterior fossa mass on prior outside MRI. TECHNIQUE: Routine brain MRI protocol without and with contrast including diffusion and gradient echo images. MQ: MRBWOW_2 Contrast: 14 mL Dotarem IV COMPARISON: 05/06/2020 RESULT: Acute Change: There is no evidence of an acute intracranial process. Hemorrhage: No evidence of prior parenchymal hemorrhage on SWI. Mass Lesion/ Mass Effect: Again noted is a well-defined, lobulated extra-axial soft tissue mass overlying the ventral aspect of the left superior and middle frontal gyri which is heterogeneously hypointense on all pulse sequences, demonstrates prominent heterogeneous enhancement following gadolinium administration and is associated with prominent bony thickening of the overlying calvarium compatible with a meningioma. While the reactive bony thickening is somewhat more extensive and demonstrates an overlying dural tail, the confluent enhancing meningioma itself measures approximately 1.9 x 1.3 x 1.7 cm in greatest AP, transverse, and CC dimensions, respectively. The mass accounts for only mild compression of the underlying parenchyma and is clearly removed from the adjacent superior sagittal sinus. Although there was a suspicion of a left CP angle mass on the outside imaging study, this likely represented volume averaging with the adjacent temporal bone. There is no clear evidence of a soft tissue mass in the left IAC or elsewhere in the posterior fossa. No abnormal parenchymal or leptomeningeal enhancement is appreciated otherwise. Chronic Change: Small remote lacunar infarct or prominent perivascular spaces noted in the left caudate head. Parenchyma: No significant volume loss for age. The brain parenchyma is otherwise within normal limits of signal intensity and morphology. Ventricles: Normal caliber and morphology. Skull Base: Hypothalamic and pituitary region are grossly normal. Craniocervical junction is normal. No significant marrow replacement process. Vasculature: A normal flow void is noted in the major dural venous sinuses suggesting patency by spin echo criteria. Other: Incidentally noted is bilateral cataract surgery. IMPRESSION: Left frontal convexity meningioma with mild localized mass effect. Otherwise normal study. Medium Cycle Salesperson: PSCB Transcribe Date/Time: May 31 2020 4:16P Dictated by : JAYLIN PETIT MD This examination was interpreted and the report reviewed and electronically signed by: JAYLIN PETIT MD on May 31 2020 4:26PM EST [id number] [facility] ([id number]) 1955 F Date Time Provider Department 05/03/20 JOHNNA MEYERS (RN) NSCAMN During your visit today, we recorded the following information about you: Johnna Meyers RN, RN 05/03/2020 9:56 AM Signed Call placed to patient in regards to referral to [facility] and to see how I can assist with obtaining additional information. Patient recently had imaging at [facility]. The triage process had been imitated earlier this month, but we had inadequate records in order to determine the appropriate provider. Dr. Palomares had asked that I contact this patient to facilitate obtaining additional records. Spoke with patient and her . I will e-mail to them the instructions on how to upload imaging from home. They will let me know if they have any difficulties with this and if so, then I'll reach out to [facility] to obtain the disc or see if [facility] can electronically send imaging to [facility]. Johnna Meyers RN, RN 05/04/2020 8:31 AM Signed Images are now available in [facility]. Additional medical records received from referring providers office and are under scanned documents. Message has been sent to scheduling to coordinate an appointment as soon as possible with the neurosurgeon Allergies As of Date: 05/03/2020 Noted Allergy Reaction LATEX 08/21/2011 2 - Rash Date Reviewed: 06/30/2014 Reviewed by: Skyla (Margarita) MARGARITA Blum - Fully Assessed Reason for Visit: Estimator Binding - Other [3602] Cmt: referral to [facility] Prescriptions as of 05/03/2020 Sig: METFORMIN ER 500 MG 24 HR TAB* Take 500 mg by mouth daily wi* GLYBURIDE 5 MG TABLET Take 5 mg by mouth daily with* * LISINOPRIL 10 MG TABLET Take 1 tablet by mouth once d* * ASPIRIN 81 MG TABLET Take one (1) tablet daily . Problem List As Of Date 05/03/2020 Noted Resolved LATERAL EPICONDYLITIS [M77.10] 05/08/2003 LOOSE BODY-UP/ARM [M24.029] 05/08/2003 SURGERY FOLLOW-UP [V67.0] 07/23/2003 SKIN HYPERTRO/ATROPH NOS [L91.9, L90.9] 05/30/2004 BENIGN WARREN SKIN FACE NEC [D23.30] 05/16/2006 BENIGN WARREN SCALP/SKIN NECK [D23.4] 05/16/2006 BENIGN WARREN SKIN TRUNK [D23.5] 05/16/2006 BENIGN WARREN SKIN ARM [D23.60] 05/16/2006 SEBORRHEIC KERATOSIS INFLAMED [L82.0] 01/22/2007 Actinic keratosis [L57.0] 11/29/2010 Joint capsule tear [T14.8XXA] 08/21/2011 More... Hip pain [M25.559] 08/21/2011 Other seborrheic keratosis [L82.1] 01/12/2012 Skin tag [L91.8] 06/13/2012 Multiple benign nevi [D22.9] 06/13/2012 Atypical nevi [D22.9] 06/17/2013 Encounter Status:Closed by JOHNNA MEYERS on 05/04/20 Normal [facility] MR-MRI BRAIN WO CON IMPORTon 04-26-2020 MR-MRI BRAIN WO CON IMPORT Images were obtained outside of [facility] [id number] Normal [facility] Vital Signs Date Time Vital Sign Value Performing Clinician Facility 01-25-2024 13:45-0500 Diastolic blood pressure 82 mm[Hg] Janes Kirnus [facility] 01-25-2024 13:45-0500 Heart rate 68 /min Janes Kirnus [facility] 01-25-2024 13:45-0500 Respiratory rate 16 /min Janes Kirnus [facility] 01-25-2024 13:45-0500 SaO2% (BldA) [Mass fraction] 98 % Janes Kirnus [facility] 01-25-2024 13:45-0500 Systolic blood pressure 132 mm[Hg] Janes Kirnus [facility] 01-24-2024 08:54-0500 Diastolic blood pressure 91 mm[Hg] Mohamad Mouchli [facility] 01-24-2024 08:54-0500 Mean blood pressure 123 mm[Hg] Mohamad Mouchli [facility] 01-24-2024 08:54-0500 Systolic blood pressure 187 mm[Hg] Mohamad Mouchli [facility] 01-24-2024 08:49-0500 Blood Pressure Location Mohamad Mouchli [facility] 01-24-2024 08:49-0500 Diastolic blood pressure 91 mm[Hg] Mohamad Mouchli [facility] 01-24-2024 08:49-0500 Heart rate 72 /min Mohamad Mouchli [facility] 01-24-2024 08:49-0500 Respiratory rate 16 /min Raman Garcia [facility] 01-24-2024 08:49-0500 Systolic blood pressure 198 mm[Hg] Raman Simonli [facility] 01-17-2024 12:30-0400 Blood Pressure Location KAYLA MALIK [facility] 01-17-2024 12:30-0400 Body temperature 98.6 [degF] KAYLA MALIK [facility] 01-17-2024 12:30-0400 Diastolic blood pressure 74 mm[Hg] KAYLA MALIK [facility] 01-17-2024 12:30-0400 Heart rate 72 /min KAYLA MALIK [facility] 01-17-2024 12:30-0400 Respiratory rate 18 /min KAYLA MALIK [facility] 01-17-2024 12:30-0400 Systolic blood pressure 129 mm[Hg] KAYLA MALIK [facility] 07-29-2023 14:38-0400 Heart rate 62 /min [facility] 07-29-2023 14:38-0400 Respiratory rate 18 /min [facility] 07-29-2023 14:38-0400 SaO2% (BldA) [Mass fraction] 100 % [facility] 07-29-2023 14:33-0400 Heart rate 59 /min [facility] 07-29-2023 14:33-0400 Respiratory rate 18 /min [facility] 07-29-2023 14:33-0400 SaO2% (BldA) [Mass fraction] 99 % [facility] 07-29-2023 14:00-0400 Diastolic blood pressure 80 mm[Hg] [facility] 07-29-2023 14:00-0400 Heart rate 61 /min [facility] 07-29-2023 14:00-0400 Mean blood pressure 102 mm[Hg] [facility] 07-29-2023 14:00-0400 Systolic blood pressure 145 mm[Hg] [facility] 07-29-2023 13:19-0400 Diastolic blood pressure 88 mm[Hg] [facility] 07-29-2023 13:19-0400 Mean blood pressure 120 mm[Hg] [facility] 07-29-2023 13:19-0400 Systolic blood pressure 185 mm[Hg] [facility] 07-29-2023 12:01-0400 Body temperature 97.88 [degF] [facility] 07-29-2023 12:01-0400 Diastolic blood pressure 87 mm[Hg] [facility] 07-29-2023 12:01-0400 Heart rate 60 /min [facility] 07-29-2023 12:01-0400 Systolic blood pressure 188 mm[Hg] [facility] 01-23-2023 13:37-0500 Diastolic blood pressure 78 mm[Hg] Jason Alex DO Work Phone: [facility] 01-23-2023 13:37-0500 Systolic blood pressure 152 mm[Hg] Jason Alex DO Work Phone: [facility] 01-23-2023 13:00-0500 Body height 165.1 cm Jason Alex DO Work Phone: [facility] 01-23-2023 13:00-0500 Body mass index (BMI) [Ratio] 23.46 kg/m2 Jason Alex DO Work Phone: [facility] 01-23-2023 13:00-0500 Body weight 63.96 kg Jason Alex DO Work Phone: [facility] 01-23-2023 13:00-0500 Heart rate 76 /min Jason Alex DO Work Phone: [facility] 01-17-2022 09:58-0400 Body height 165.1 cm Lamont Holtight Work Phone: [facility] DO Work Phone: 01-17-2022 09:58-0400 Body mass index (BMI) [Ratio] 23.67 kg/m2 Lamont Holtight Work Phone: [facility] DO Work Phone: 01-17-2022 09:58-0400 Body surface area Derived from formula 1.71 m2 Lamont Butler Work Phone: [facility] DO Work Phone: 01-17-2022 09:58-0400 Body weight 64.52 kg Lamont Butler Work Phone: [facility] DO Work Phone: 01-17-2022 09:58-0400 Diastolic blood pressure 78 mm[Hg] Lamont Butler Work Phone: [facility] DO Work Phone: 01-17-2022 09:58-0400 Heart rate 65 /min Lamont Holtight Work Phone: [facility] DO Work Phone: 01-17-2022 09:58-0400 Systolic blood pressure 138 mm[Hg] Lamont Butler Work Phone: [facility] DO Work Phone: 04-19-2021 11:50-0500 Body height 165.1 cm Lamont Lima Luke Work Phone: [facility] DO Work Phone: 04-19-2021 11:50-0500 Body mass index (BMI) [Ratio] 21.47 kg/m2 Lamont Lima Luke Work Phone: [facility] DO Work Phone: 04-19-2021 11:50-0500 Body surface area Derived from formula 1.64 m2 Lamont Lima Luke Work Phone: [facility] DO Work Phone: 04-19-2021 11:50-0500 Body weight 58.51 kg Lamont Lima Luke Work Phone: [facility] DO Work Phone: 04-19-2021 11:50-0500 Diastolic blood pressure 81 mm[Hg] Lamont Lima Luke Work Phone: [facility] DO Work Phone: 04-19-2021 11:50-0500 Heart rate 74 /min Lamont Holtight Work Phone: [facility] DO Work Phone: 04-19-2021 11:50-0500 Systolic blood pressure 134 mm[Hg] Lamont Lima Luke Work Phone: [facility] DO Work Phone: Encounters Encounter Date Encounter Type Care Provider Facility Start: 10-08-2024 ambulatory Maris Scott Facility:[facility] Jose Martin Start: 09-30-2024 ambulatory Francisco Mckeon Facility :[facility] G[facility] Philippe Start: 08-12-2024 End: 08-12-2024 Maurice Hannanathan Haydee Horvath DO Work Phone: [facility] Start: 08-12-2024 End: 08-12-2024 Bamboo flowsheet Joel Haydee Karyjessica DO Work Phone: [facility] Start: 07-21-2024 End: 07-21-2024 ambulatory [facility] Start: 07-01-2024 End: 07-01-2024 ambulatory Francisco Nidhi Mervin Facility:[facility] Jose Martin Start: 03-26-2024 ambulatory Maris Scott Facility:[facility] Start: 03-18-2024 End: 03-18-2024 ambulatory Maris M. Tyler Facility:[facility] Start: 03-18-2024 End: 03-18-2024 Patient encounter procedure Maris Scott [facility] Start: 03-17-2024 End: 03-17-2024 ambulatory Maris Overton. Tyler Facility:[facility] Start: 03-17-2024 End: 03-17-2024 Patient encounter procedure Maris Scott [facility] Start: 01-25-2024 End: 01-25-2024 ambulatory XXXX NONE Facility:[facility] Start: 01-25-2024 End: 01-25-2024 Patient encounter procedure Janes Rivera [facility] Start: 01-24-2024 End: 01-24-2024 ambulatory Raman Garcia Facility:[facility] Start: 01-24-2024 End: 01-24-2024 Patient encounter procedure Raman Garcia [facility] Start: 01-17-2024 End: 01-17-2024 Lab Drop off KAYLA GEORGE [facility] Start: 01-17-2024 End: 01-17-2024 ambulatory KAYLA GEORGE Facility:[facility] Start: 01-17-2024 End: 01-17-2024 Patient encounter procedure KAYLA GEORGE [facility] [place] Start: 01-17-2024 End: 01-17-2024 ambulatory MD Francisco Mckeon Work Phone: [facility] Work Phone: Start: 01-17-2024 End: 01-17-2024 Patient encounter procedure MD Francisco Mckeon Work Phone: [facility] Work Phone: Start: 01-14-2024 End: 01-14-2024 ambulatory Francisco Mckeon Facility:[facility] Start: 01-14-2024 End: 01-14-2024 Patient encounter procedure Francisco Mckeon [facility] Start: 01-01-2024 End: 01-01-2024 Lab Drop off Francisco Mckeon [facility] Start: 01-01-2024 End: 01-01-2024 ambulatory Francisco Mckeon Facility:[facility] [place] Start: 12-04-2023 ambulatory Francisco Mckeon Facility:[facility] Jose Martin Start: 10-03-2023 End: 10-03-2023 Lab Drop off Janes Rivera [facility] Start: 10-03-2023 End: 10-03-2023 ambulatory Francisco Mckeon Facility:[facility] [place] Start: 09-10-2023 End: 09-10-2023 ambulatory Francisco LimaCristal Mervin Facility:[facility] Jose Martin Start: 07-29-2023 End: 07-29-2023 Emergency department patient visit Alise Robin [facility] Start: 07-27-2023 End: 07-27-2023 ambulatory Carolyn L Sunny Facility:[facility] Jose Martin Start: 07-16-2023 End: 07-16-2023 ambulatory Francisco Mckeon Facility: [facility] [place] Start: 07-03-2023 ambulatory Francisco Mckeon Facility: S [place] Start: 07-03-2023 End: 07-03-2023 Lab Drop off Francisco Mckeon [facility] Start: 07-03-2023 End: 07-03-2023 ambulatory Francisco Mckeon Facility:[facility] Start: 04-23-2023 End: 04-23-2023 ambulatory Francisco Mckeon Facility:[facility] [place] Start: 04-03-2023 End: 04-03-2023 ambulatory Francisco Mckeon Facility:[facility] [place] Start: 03-20-2023 End: 03-20-2023 ambulatory [facility] Start: 03-01-2023 End: 03-01-2023 ambulatory Carolyn L Sunny Facility:[facility] Jose Martin Start: 02-13-2023 End: 02-13-2023 ambulatory Francisco Mckeon Facility:[facility] [place] Start: 01-23-2023 End: 01-23-2023 ambulatory [facility] Start: 01-23-2023 End: 01-23-2023 Office outpatient visit 25 minutes [facility] Work Phone: [facility] Comment on above: Arteriosclerotic hea rt disease (ASHD) (Primary Dx); History of myocardial infarction; Hyperlipidemia, unspecified hyperlipidemia type; Essential hypertension, benign; S/P CABG x 3; Paroxysmal atrial fibrillation (CMS/HCC); Other specified diabetes mellitus with other specified complication, with long-term current use of insulin (CMS/HCC) Start: 01-15-2023 End: 01-15-2023 ambulatory MD Francisco Mckeon Work Phone: [facility] Work Phone: Start: 01-15-2023 End: 01-15-2023 Patient encounter procedure MD Francisco Mckeon Work Phone: [facility] Work Phone: Start: 05-15-2022 End: 05-16-[address] LAMONT BUTLER . Facility:[facility] Start: 04-23-2022 End: 04-23-[address] YENY BYRD . Facility:[facility] Start: 03-17-2022 Rx Renewal Lamont Butler Work Phone: [facility] DO Work Phone: Start: 01-17-2022 Office outpatient vi sit 15 minutes Lamont Butler Work Phone: [facility] DO Work Phone: Start: 01-17-2022 ambulatory Lamont Butler Facil ity: Start: 01-13-2022 End: 01-13-2022 ambulatory MD Lamont Butler Work Phone: [facility] Work Phone: Start: 01-13-2022 End: 01-13-2022 Patient encounter procedure MD Lamont Butler [facility] Start: 01-11-2022 End: 01-12-[address] LAMONT BUTLER . Facility:[facility] Start: 12-10-2021 End: 12-10-2021 ambulatory LIBORIO NEWELL Facility:[facility] Start: 11-14-[address] LAMONT BUTLER . Facil ity:[facility]1 Start: 11-01-2021 End: 11-02-[address] LAMONT BUTLER . Facility:[facility] Start: 10-13-2021 End: 10-14-[address] LAMONT BUTLER . Facility:[facility] Start: 09-30-2021 End: 10-01-[address] LAMONT BUTLER . Facility:[facility] Start: 09-30-2021 End: 09-30-2021 Lab Drop off Patrick MEJIA [facility] Start: 09-26-2021 End: 09-27-2021 ambulatory GIAN CLINE . Facility:[facility] Start: 08-01-2021 End: 08-02-[address] LAMONT BUTLER . Facility:[facility] Start: 04-28-2021 ambulatory Lamont Butler Facil ity: Start: 04-25-2021 Patient encounter procedure Bry Butler Work Phone: [facility] DO Work Phone: Start: 04-25-2021 ambulatory Lamont Butler Facil ity: Start: 04-19-2021 Office outpatient vi sit 25 minutes Lamont Butler Work Phone: [facility] DO Work Phone: Start: 04-19-2021 ambulatory Lamont Butler Facil ity: Start: 03-31-2021 Rx Renewal Stacy Cornell MD Work Phone: [facility] [place] Work Phone: Start: 02-23-[address] Jason Alex Fac ility:[id number] Start: 02-22-[address] Jason Alex Fac ility:[id number] Start: 02-21-[address] Jason Alex Fac ility:[id number] Start: 02-19-[address] Jason Alex Fac ility:[id number] Start: 02-18-[address] Jason Alex Fac ility:[id number] Start: 02-17-[address] Jason Alex Fac ility:[id number] Start: 02-16-[address] Jason Alex Fac ility:[id number] Start: 02-14-[address] Jason Alex Fac ility:[id number] Start: 02-13-[address] Jason Alex Fac ility:[id number] Start: 02-12-2021 Chart Update Stacy Cornell MD Work Phone: -[facility] [place] Work Phone: Start: 02-12-[address] Jason Potter ility:[id number] Start: 02-11-[address] Jason Potter ility:[id number] Start: 02-10-[address] Jason Potter ility:[id number] Procedures Date Procedure Procedure Detail Performing Clinician Start: 08-12-2024 End: 08-12-2024 [facility] medical xm&eval comprhnsv estab pt 1/> 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 type 1 diabetes mellitus (CMS/HCC) Joel Horvath DO Work Phone: Comment on above: Mild nonproliferative diabetic retinopat hy of both eyes without macular edema associated with type 1 diabetes mellitus (CMS/HCC) (Primary Dx); Bilateral posterior capsular opacification; Diplopia; Dry eyes Start: 01-17-2024 Screening mammography of bilateral breasts MD Francisco Mckeon Work Phone: Start: 03-20-2023 FOLLOW UP IN CARDIOLOGY JASON ALEX Start: 01-22-2023 History of coronary artery bypass grafting S/P CABG x 3 Jason Alex DO Work Phone: Start: 01-15-2023 Screening mammography of bilateral breasts MD Francisco Mckeon Work Phone: Start: 01-13-2022 Screening mammography of bilateral breasts MD Lamont Butler Work Phone: Start: 03-19-2020 Open heart surgery Francisco Mckeon Start: 07-23-2019 Cataract extraction and insertion of intraocular lens Patrick MEJIA Comment on above: left Cholecystectomy Lamont Butler Work Phone: Cholecystectomy Francisco Mckeon Colonoscopy Francisco Mckeon Coronary artery bypa ss graft Lamont Butler Work Phone: History of cholecystectomy History of cholecystectomy Raman Garcia History of coronary artery bypass grafting S/P CABG x 3 Lamont Butler Work Phone: History of coronary artery bypass grafting Status post aorto-coronary artery bypass graft MD Lamont Butler Work Phone: History of coronary artery bypass grafting S/P CABG x 3 Jason Alex DO Work Phone: Ligation of fallopia n tube Franciscoterra Mckeon Operative procedure on spinal structure Lamont Butler Work Phone: Tooth extraction Francisco Mckeon Plan of Treatment Date Care Activity Detail Author Start: 01-15-2027 DTaP/Tdap/Td Vaccine s (2 - Td or Tdap) DTaP/Tdap/Td Vaccines (2 - Td or Tdap) [facility] Start: 08-12-2024 End: 08-12-2024 Patient encounter procedure 08/12/2024 8:15 AM EDT Office Visit [facility] [address] [place] [address] Joel Horvath DO [address] [place] [address] Arrived [facility] Comment on above: Arrived Start: 12-12-2023 Glaucoma screening Diabetes: R etinopathy Screening [facility] Start: 01-23-2023 FUV, Provider: Jason Alex, Status: Pen, Time: 9:10 AM FUV, Provider: Jason Alex, Status: Pen, Time: 9:10 AM [facility] 250 DO Work Phone: Start: 01-23-2022 COVID-19 Vaccine (5 - Moderna series) COVID-19 Vaccine (5 - Moderna series) [facility] Start: 10-25-2021 FUV, Provider: Jason Alex, Status: Ryan, Time: 10:00 AM FUV, Provider: Jason Alex, Status: Pen, Time: 10:00 AM [facility] DO Work Phone: Start: 04-25-2021 [facility], Provider : MIRIAM TOMPKINS BELT TURNER 1,[id number], Status: Pen, Time: 10:00 AM [facility], Provider: MIRIAM TOMPKINS BELT T[place]NER 1,[id number], Status: Pen, Time: 10:00 AM [facility] DO Work Phone: Start: 04-19-2021 FUV, Provider: Jason Alex, Status: Pen, Time: 11:20 AM FUV, Provider: Jason Alex, Status: Pen, Time: 11:20 AM [facility] [place] Work Phone: Start: 07-02-2019 Pneumococcal Vaccine : 65+ Years (2 - PCV) Pneumococcal Vaccine: 65+ Years (2 - PCV) [facility] Start: 07-02-2019 Pneumococcal Vaccine : 65+ Years (2 of 2 - PCV) Pneumococcal Vaccine: 65+ Years (2 of 2 - PCV) [facility] Start: 1993 Screening for malign ant neoplasm of breast Mammogram [facility] Start: 02-08-1972 Urine screening for protein Diabetes: Urine Protein Screening [facility] Start: 1971 Hepatitis C screening Hepatitis C Sc reening [facility] Start: 1963 Diabetic foot examination Diabetes: Foot Exam [facility] Start: 1953 Hemoglobin A1c measurement Diabetes: Hemoglobin A1C [facility] Start: 1953 Lipid panel Lipid Panel [facility] Start: 1953 Medicare Annual Wellness Visit Medicare Annual Wellness Visit (AWV) [facility] Start: 1953 Screening for malign ant neoplasm of colon [facility] Start: 1953 Screening for osteoporosis Bone Density Scan [facility] Start: 1953 Thyroid stimulating hormone measurement TSH Level [facility] Immunizations Immunization Date Immunization Notes Care Provider Fa rodríguez 11-30-2023 influenza virus vacc ine, unspecified formulation Francisco Mckeon [facility] 12-21-2022 influenza virus vacc ine, unspecified formulation Francisco Mckeon [facility] 12-21-2022 Influenza, Seasonal, Quadrivalent, Adjuvanted Jason Alex DO Work Phone: [facility] Work Phone: 12-21-2022 influenza, unspecifi ed formulation KAYLA GEORGE [facility] 11-22-2022 RSV, 60 Years And Ol sneha (AREXVY) Jason Alex DO Work Phone: [facility] Work Phone: 12-20-2021 Fluzone High-Dose Quadrivalent 0.7 ML Intramuscular Suspension Prefilled Syringe Lamont Butler Work Phone: [facility] [employer] 250 DO Work Phone: 12-20-2021 influenza virus vacc ine, unspecified formulation Francisco Mckeon [facility] 11-28-2021 Moderna COVID-19 Biv al Booster 50 MCG/0.5ML Intramuscular Suspension Lamont Butler Work Phone: [facility] 250 DO Work Phone: Comment on above: Result Comment: 2022: [id number] 11-23-2021 influenza virus vacc ine, unspecified formulation Francisco Mckeon [facility] 11-23-2021 influenza, seasonal, injectable Lamont Janie HoltButler Work Phone: [facility] DO Work Phone: Comment on above: Series: 06-29-2021 Moderna COVID-19 Vac cine 100 MCG/0.5ML Intramuscular Suspension Lamont Janie HoltButler Work Phone: [facility] 01-08-2021 Moderna COVID-19 Vac cine 100 MCG/0.5ML Intramuscular Suspension Lamont Butler Work Phone: [facility] Comment on above: Result Comment: 2022: [id number] 12-04-2020 Fluzone High-Dose Quadrivalent 0.7 ML Intramuscular Suspension Prefilled Syringe [facility] Butler [facility] Work Phone: 12-04-2020 influenza virus vacc ine, unspecified formulation Francisco Mckeon [facility] 05-25-2020 Moderna COVID-19 Vac cine 100 MCG/0.5ML Intramuscular Suspension Lamont Butler Work Phone: [facility] 04-26-2020 Moderna COVID-19 Vac cine 100 MCG/0.5ML Intramuscular Suspension Lamont Butler Work Phone: [facility] 12-01-2019 Fluzone High-Dose Quadrivalent 0.7 ML Intramuscular Suspension Prefilled Syringe Lamont Butler Work Phone: [facility] 250 DO Work Phone: 12-01-2019 influenza virus vacc ine, unspecified formulation Francisco Mckeon [facility] 11-14-2018 influenza virus vacc ine, unspecified formulation Francisco Mckeon [facility] 11-14-2018 influenza, high dose seasonal, preservative-free [facility]ont Butler [facility] Work Phone: 07-01-2018 pneumococcal polysaccharide vaccine, 23 valent Lamont Butler Work Phone: [facility] 250 DO Work Phone: 05-21-2018 zoster vaccine recombinant Lamont Butler Work Phone: [place] [address] DO Work Phone: 01-28-2018 pneumococcal polysaccharide vaccine, 23 valent Lamont Butler Work Phone: [place] [address] DO Work Phone: 11-30-2017 influenza virus vacc ine, live, attenuated, for intranasal use Francisco [email or web address] [facility] 11-30-2017 influenza, live, intranasal, quadrivalent Lamont Butler Work Phone: [place] [address] DO Work Phone: 11-14-2017 influenza virus vacc ine, unspecified formulation Picitup [facility] 11-14-2017 influenza, injectabl e, quadrivalent, preservative free Lamont Butler Work Phone: [place] [address] DO Work Phone: 11-06-2017 typhoid vaccine, parenteral, other than acetone-killed, dried Lamont Butler Work Phone: [place] [address] DO Work Phone: 11-06-2017 zoster vaccine recombinant Lamont Butler Work Phone: [place] [address] DO Work Phone: 01-15-2017 tetanus toxoid, redu migel diphtheria toxoid, and acellular pertussis vaccine, adsorbed Lamont Butler Work Phone: [place] [address] DO Work Phone: 12-12-2016 influenza virus vacc ine, unspecified formulation Picitup [facility] 12-12-2016 influenza, injectabl e, quadrivalent, preservative free Lamont Butler Work Phone: [facility] 250 DO Work Phone: 12-08-2015 influenza virus vacc ine, unspecified formulation Francisco Mckeon [facility] 12-08-2015 influenza, injectabl e, quadrivalent, preservative free Lamont Butler Work Phone: [facility] 250 DO Work Phone: 04-20-2015 typhoid vaccine, parenteral, other than acetone-killed, dried Lamont Butler Work Phone: [facility] [employer] DO Work Phone: 01-28-2014 zoster vaccine, live Lamont morgan Work Phone: [place] [address] DO Work Phone: 02-24-2009 novel influenza-H1N1 -09, preservative-free, injectable Lamont Butler Work Phone: [place] [address] DO Work Phone: 12-07-2000 Hep A, unspecified formulation Francisco Mckeon [facility] 12-07-2000 hepatitis A vaccine, unspecified formulation Lamont Butler Work Phone: [facility] 250 DO Work Phone: 05-30-2000 Hep A, unspecified formulation Francisco Mckeon [facility] 05-30-2000 hepatitis A vaccine, unspecified formulation Lamont Butler Work Phone: [facility] 250 DO Work Phone: Payers Date Payer Category Payer Private Health Insurance [id number] 2018 Medicare [id number] 1959 Medicare [id number] 1959 Self-pay [id number] 1959 Unknown [id number] 1953 Unknown [id number] 2.16. 840.1.500221.3.579.2. 1953 Unknown [id number] 2.16. 840.1.357113.3.579.2. 1953 Unknown [id number] 2.16. 840.1.589241.3.579.2. 1953 Unknown [id number] 2.16. 840.1.403396.3.579.2.356 1953 Unknown [id number] 2.16. 840.1.031578.3.579.2. 1953 Unknown [id number] 2.16. 840.1.864067.3.579.2.356 1953 Unknown [id number] 2.16. 840.1.518858.3.579.2.356 1953 Unknown [id number] 2.16. 840.1.257028.3.579.2.356 1953 Unknown [id number] 2.16. 840.1.292152.3.579.2. 1953 Unknown [id number] 2.16. 840.1.561600.3.579.2. 1953 Unknown [id number] 2.16. 840.1.703699.3.579.2.356 1953 Unknown [id number] 2.16. 840.1.831927.3.579.2.356 1953 Unknown [id number] 2.16. 840.1.998221.3.579.2.356 1953 Unknown [id number] 2.16. 840.1.272454.3.579.2.356 1953 Unknown [id number] 2.16. 840.1.450793.3.579.2.356 1953 Unknown [id number] 2.16. 840.1.971909.3.579.2.356 1953 Unknown [id number] 2.16. 840.1.652182.3.579.2.356 1953 Unknown [id number] 2.16.84 0.1.126689.3.579.2.593 1953 Unknown [id number] 2.16.84 0.1.471252.3.579.2.593 1953 Unknown [id number] 2.16.84 0.1.286639.3.579.2.593 1953 Unknown [id number] 2.16.84 0.1.365125.3.579.2.593 1953 Unknown [id number] 2.16.84 0.1.693238.3.579.2.593 1953 Unknown [id number] 2.16.84 0.1.701755.3.579.2.593 1953 Unknown [id number] 2.16.84 0.1.187482.3.579.2.593 1953 Unknown [id number] 2.16.84 0.1.683123.3.579.2.593 1953 Unknown [id number] 2.16.84 0.1.025647.3.579.2.593 1953 Unknown [id number] 2.16.84 0.1.710967.3.579.2.593 1953 Unknown [id number] 2.16.84 0.1.165321.3.579.2.593 1953 Unknown [id number] 2.16.8 40.1.975696.3.579.2.1244 1953 Unknown [id number] 2.16.8 40.1.030950.3.579.2.1244 1953 Unknown [id number] 2.16.8 40.1.303975.3.579.2.727 1953 Unknown [id number] 2.16.8 40.1.735358.3.579.2.727 1953 Unknown [id number] 2.16.8 40.1.012413.3.579.2.727 1953 Unknown [id number] 2.16.8 40.1.710892.3.579.2.727 1953 Unknown [id number] 2.16.8 40.1.130891.3.579.2.727 1953 Unknown [id number] 2.16.8 40.1.465368.3.579.2.727 1953 Unknown [id number] 2.16.8 40.1.618249.3.579.2.727 1953 Unknown [id number] 2.16.8 40.1.302195.3.579.2.727 1953 Unknown [id number] 2.16.8 40.1.323176.3.579.2.727 1953 Unknown [id number] 2.16.8 40.1.108609.3.579.2.727 1953 Unknown [id number] 2.16.8 40.1.891179.3.579.2.727 1953 Unknown [id number] 2.16.8 40.1.035362.3.579.2.727 1953 Unknown [id number] 2.16.8 40.1.438888.3.579.2. 1953 Unknown [id number] 2.16.8 40.1.848228.3.579.2. 1953 Unknown [id number] 2.16.8 40.1.904852.3.579.2. 1953 Unknown [id number] 2.16.8 40.1.808291.3.579.2. 1953 Unknown [id number] 2.16.8 40.1.053969.3.579.2 1953 Unknown [id number] 2.16.8 40.1.033120.3.579.2 1953 Unknown [id number] 2.16.8 40.1.781581.3.579.2 1953 Unknown [id number] 2.16.8 40.1.031307.3.579.2 1953 Unknown [id number] 2.16.8 40.1.915935.3.579.2 1953 Unknown [id number] 2.16.8 40.1.152078.3.579.2 1953 Unknown [id number] 2.16.8 40.1.117624.3.579.2 1953 Unknown [id number] 2.16.8 40.1.261142.3.579.2 1953 Unknown [id number] 2.16.8 40.1.386941.3.579.2 1953 Unknown [id number] 2.16.8 40.1.656069.3.579.2 1953 Unknown [id number] 2.16.8 40.1.959267.3.579.2 1953 Unknown [id number] 2.16.8 40.1.012791.3.579.2.727 Private Health Insurance [id number] Unknown Unknown [id number] 2.16.8 40.1.408379.3.579.2.531 Social History Date Type Detail Facility Start: 01-23-2023 No alcohol use No alcohol use -[facility] DO Work Phone: Tobacco smoking status No Smokin g Status Entered [facility] Start: 01-23-2023 Sex Assigned At Female F [facility] Start: 02-24-2021 End: 12-11-2022 Tobacco smoking status NHIS Never smoked tobacco (finding) [facility] Start: 1955 Sex Assigned At Female F [facility] Start: 12-11-2022 End: 01-23-2023 Tobacco use and exposure Smokeless tobacco non-user [facility] Work Phone: Start: 01-23-2023 Alcohol intake Lifetime non-d alexandra (finding) [facility] Work Phone: Start: 1955 Sex Assigned At Not on file U [facility] Work Phone: Start: 01-13-2023 End: 01-23-2023 Exposure to SARS-CoV-2 (event) Not sure [facility] Tobacco smoking status Never [facility] Medical Equipment Procedure Code Equipment Code Equipment Origin al Text Equipment Identifier Dates CATARACT EXTRACT ION W/ INTRAOCULAR LENS Joel Horvath DO 07/23/19 Unknown Eye L FDA Start: 07-23-2019 CATARACT EXTRACT ION W/ INTRAOCULAR LENS Joel Horvath DO 07/23/19 Unknown Eye L FDA Start: 07-23-2019 See Instructions , BD ultra fine mini pen needles 31G X 3/16 Use 6 times a day to inject insulin Dx E10.8, Supply Start: 07-17-2022 CATARACT EXTRACT ION W/ INTRAOCULAR LENS Joel Horvath DO 20 Unknown Eye L FDA Start: 07-23-2019 See Instructions , BD ultra fine mini pen needles 31G X 3/16 Use 6 times a day to inject insulin Dx E10.8, Supply Start: 07-17-2022 CATARACT EXTRACT ION W/ INTRAOCULAR LENS Karyhler DO, Joel 520 Unknown Eye L FDA Start: 07-23-2019 See Instructions , BD ultra fine mini pen needles 31G X 3/16 Use 6 times a day to inject insulin Dx E10.8, Supply Start: 07-17-2022 CATARACT EXTRACT ION W/ INTRAOCULAR LENS Zahler DO, Joel 20 Unknown Eye L FDA Start: 07-23-2019 See Instructions , BD ultra fine mini pen needles 31G X 3/16 Use 6 times a day to inject insulin Dx E10.8, Supply Start: 07-17-2022 Pen Needle 31G x 6mm, See Instructions, 100 EA, 1, Pen Needle 31G x 6mm. Pt needs 5 boxes of 3 months supply., [id number], Supply, 154, cm, 01/01/24 9:31:00 EDT, Height/Length Dosing, 66.8, kg, 01/01/24 9:31:00 EDT, Weight Dosing Start: 01-01-2024 CATARACT EXTRACT ION W/ INTRAOCULAR LENS Karyhler DO, Joel 20 Unknown Eye L FDA Start: 07-23-2019 See Instructions , BD ultra fine mini pen needles 31G X 3/16 Use 6 times a day to inject insulin Dx E10.8, Supply Start: 07-17-2022 Pen Needle 31G x 6mm, See Instructions, 100 EA, 1, Pen Needle 31G x 6mm. Pt needs 5 boxes of 3 months supply., [id number], Supply, 154, cm, 01/01/24 9:31:00 EDT, Height/Length Dosing, 66.8, kg, 01/01/24 9:31:00 EDT, Weight Dosing Start: 01-01-2024 CATARACT EXTRACT ION W/ INTRAOCULAR LENS Karyhler DO, Joel 20 Unknown Eye L FDA Start: 07-23-2019 See Instructions , BD ultra fine mini pen needles 31G X 3/16 Use 6 times a day to inject insulin Dx E10.8, Supply Start: 07-17-2022 Pen Needle 31G x 6mm, See Instructions, 100 EA, 1, Pen Needle 31G x 6mm. Pt needs 5 boxes of 3 months supply., [id number], Supply, 154, cm, 01/01/24 9:31:00 EDT, Height/Length Dosing, 66.8, kg, 01/01/24 9:31:00 EDT, Weight Dosing Start: 01-01-2024 CATARACT EXTRACT ION W/ INTRAOCULAR LENS Zahler DO, Joel 07/23/19 Unknown Eye L FDA Start: 07-23-2019 See Instructions , BD ultra fine mini pen needles 31G X 3/16 Use 6 times a day to inject insulin Dx E10.8, Supply Start: 07-17-2022 Pen Needle 31G x 6mm, See Instructions, 100 EA, 1, Pen Needle 31G x 6mm. Pt needs 5 boxes of 3 months supply., [id number], Supply, 154, cm, 01/01/24 9:31:00 EDT, Height/Length Dosing, 66.8, kg, 01/01/24 9:31:00 EDT, Weight Dosing Start: 01-01-2024 CATARACT EXTRACT ION W/ INTRAOCULAR LENS Zahler DO, Joel 07/23/19 Unknown Eye L FDA Start: 07-23-2019 See Instructions , BD ultra fine mini pen needles 31G X 3/16 Use 6 times a day to inject insulin Dx E10.8, Supply Start: 07-17-2022 Pen Needle 31G x 6mm, See Instructions, 100 EA, 1, Pen Needle 31G x 6mm. Pt needs 5 boxes of 3 months supply., [id number], Supply, 154, cm, 01/01/24 9:31:00 EDT, Height/Length Dosing, 66.8, kg, 01/01/24 9:31:00 EDT, Weight Dosing Start: 01-01-2024 CATARACT EXTRACT ION W/ INTRAOCULAR LENS Zahler DO, Joel 07/23/19 Unknown Eye L FDA Start: 07-23-2019 See Instructions , BD ultra fine mini pen needles 31G X 3/16 Use 6 times a day to inject insulin Dx E10.8, Supply Start: 07-17-2022 Pen Needle 31G x 6mm, See Instructions, 100 EA, 1, Pen Needle 31G x 6mm. Pt needs 5 boxes of 3 months supply., [id number], Supply, 154, cm, 01/01/24 9:31:00 EDT, Height/Length Dosing, 66.8, kg, 01/01/24 9:31:00 EDT, Weight Dosing Start: 01-01-2024 CATARACT EXTRACT ION W/ INTRAOCULAR LENS Karyhler DOCyndiJoel 20 Unknown Eye L FDA Start: 07-23-2019 See Instructions , BD ultra fine mini pen needles 31G X 3/16 Use 6 times a day to inject insulin Dx E10.8, Supply Start: 07-17-2022 Pen Needle 31G x 6mm, See Instructions, 100 EA, 1, Pen Needle 31G x 6mm. Pt needs 5 boxes of 3 months supply., [id number], Supply, 154, cm, 01/01/24 9:31:00 EDT, Height/Length Dosing, 66.8, kg, 01/01/24 9:31:00 EDT, Weight Dosing Start: 01-01-2024 CATARACT EXTRACT ION W/ INTRAOCULAR LENS Karyhler DO, Joel 5/20 Unknown Eye L FDA Start: 07-23-2019 See Instructions , BD ultra fine mini pen needles 31G X 3/16 Use 6 times a day to inject insulin Dx E10.8, Supply Start: 07-17-2022 Pen Needle 31G x 6mm, See Instructions, 100 EA, 1, Pen Needle 31G x 6mm. Pt needs 5 boxes of 3 months supply., [id number], Supply, 154, cm, 01/01/24 9:31:00 EDT, Height/Length Dosing, 66.8, kg, 01/01/24 9:31:00 EDT, Weight Dosing Start: 01-01-2024 Functional Status Date Assessment Result Facility 03-17-2024 Functional Status N/A [facility] 01-25-2024 Functional Status N/A [facility] 01-24-2024 Functional Status N/A [facility] 01-17-2024 Functional Status N/A [facility] 07-29-2023 Functional Status N/A [facility] Clinical Notes 05-07-2020 to 08-12-2024 Joel Horvath DO - 08/12/2024 8:15 AM EDT Note Date & Type Note Facility 08-12-2024 History of Present illness Narrative Images from the original note were not [...] yearly dilated examinations, but to contact us immediately for any problems or concerns. Continue aggressive [...] laser capsulotomy, they are to notify their talent coordinator promptly if they have a significant change [...] tears were recommended. documented in this encounter [facility] 07-21-2024 Note [place] [facility] - [facility] Subjective Rafi Roper is a 69 y.o. year old female patient being seen to establish care. Patient states she had CABG x 3, 3 years ago at [facility]. Patient denies SOB, chest pain, palpitations, dizziness or bleeding/discoloration/bruising. Patient states her left looks more swollen then the right. 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) Benign neoplasm of skin of trunk, except scrotum Benign neoplasm of skin of upper limb, including shoulder Bilateral posterior capsular opacification BMI 26.0-26.9,adult Overweight (BMI 25.0-29.9) Bowel habit changes BPPV (benign paroxysmal positional vertigo) CHF (congestive heart failure) (CMS/HCC) Colon cancer screening COVID Diabetes mellitus (CMS/HCC) DM type 2 causing vascular disease (CMS/HCC) Diabetic neuropathy (CMS/HCC) Diplopia Dry eyes Essential hypertension, benign Eustachian tube dysfunction Fecal urgency Follow-up examination following surgery GERD without esophagitis Hip pain History of cholecystectomy History of Clostridium difficile colitis History of myocardial infarction HTN (hypertension) Hyperlipidemia Hypertrophic and atrophic condition of skin Injury of left foot Joint capsule tear Lateral epicondylitis 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 At that time there was inability to cross the lesion with a wire. A intra-aortic balloon pump was placed and the patient underwent urgent three-vessel CABG in January 2021 [NEWMAN to LAD, saphenous venous graft to OM1, saphenous vein graft to OM 2]. Postoperatively she developed atrial fibrillation and was initially maintained on Eliquis for anticoagulation. This was discontinued and is currently on aspirin 81 mg daily. Additional medical history includes hypertension, hyperlipidemia and diabetes. Today she reports that she has been doing well. She denies chest pain, shortness of breath, dizziness or lightheadedness, palpitations. She has acceptable exercise tolerance. She has occasional lower extremity edema. Review of Systems Cardiovascular: Positive for leg swelling. Objective Visit Vitals BP 132/77 (BP Location: Right arm, Patient Position: Sitting) Pulse 77 Ht 1.651 m (5' 5 ) Wt 65.3 kg (144 lb) SpO2 99% BMI 23.96 kg/m??? Smoking Status Never BSA 1.73 m??? Physical Exam Constitutional: Appearance: She is well-developed. She is not ill-appearing. HENT: Head: Normocephalic and atraumatic. Nose: Nose normal. Eyes: General: No scleral icterus. Pupils: Pupils are equal, round, and reactive to light. Neck: Thyroid: No thyromegaly. Vascular: No JVD. Cardiovascular: Rate and Rhythm: Normal rate and regular rhythm. Pulses: Radial pulses are 2+ on the right side and 2+ on the left side. Heart sounds: Normal heart sounds. No murmur heard. No friction rub. No gallop. Pulmonary: Effort: Pulmonary effort is normal. No respiratory distress. Breath sounds: Normal breath sounds. No wheezing or rales. Chest: Chest wall: No tenderness. Abdominal: General: Bowel sounds are normal. There is no distension. Palpations: Abdomen is soft. Tenderness: There is no abdominal tenderness. Musculoskeletal: General: No swelling. Cervical back: Neck supple. Skin: General: Skin is warm and dry. Neurological: General: No focal deficit present. Mental Status: She is alert and oriented to person, place, and time. Psychiatric: Mood and Affect: Mood normal. Behavior: Behavior is cooperative. Judgment: Judgment normal. Allergies Allergies Allergen Reactions Latex Unknown and Rash BURNED HER SKIN Medications Current Outpatient Medications: aspirin 81 mg EC tablet, Take 81 mg by mouth in the morning., Disp: , Rfl: atorvastatin (Lipitor) 80 mg tablet, Take 80 mg by mouth in the morning., Disp: , Rfl: cholestyramine (Questran) 4 gram packet, Take 1 packet by mouth in the morning., Disp: , Rfl: ezetimibe (Zetia) 10 mg tablet, Take 1 tablet by mouth in the morning., Disp: , Rfl: fluticasone (Jian (more content not included)... 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 69-year-old female with history of chronic microscopic hematuria here for cystoscopy. Found to have a urethral caruncle and vaginal atrophy with symptoms. 1. Urethral caruncle/vaginal atrophy - having dysuria without infection. We discussed presence of vaginal atrophy. I explained the lack of estrogen secondary to menopause causes changes in the vaginal epithelium that can predispose to lower urinary tract symptoms, vaginal discomfort, urge urinary incontinence, urgency, frequency, nocturia, dyspareunia, and recurrent urinary tract infections. This can be treated with topical application of estrogen to the vagina, which has been shown to reduce frequency of UTIs by up to 70%. She was reassured that there is minimal systemic absorption with application of vaginal estrogen cream and most of the benefits will be to the local tissues. -Start estrace cream. Patient was told to apply a pea-sized amount 3 times weekly at night for 4 weeks and then 2 times per week thereafter, may take up to 3 months for full effect. She should stop medication and notify us if she feels breast tenderness or has vaginal spotting. 2. Chronic microscopic hematuria. Neg UCx 01/01/24. 4-20 RBCs Cysto years ago by Dr. Mejia for microscopic hematuria. Negative. CTU - not yet obtained Cysto - neg today -F/u CTU and urine cytology. If neg, f/u prn Future Appointments Appointment Date:03/18/2024 08:00:00 AM Scheduled Provider: Location:.[facility] Appointment Type:CT Abdomen/Pelvis Combo () Appointment Date:07/01/2024 08:30:00 AM Scheduled Provider:Francisco Mckeon MD Location:[facility] Appointment Type: Open Diagnostic Tests Pending * Urine Cytology ([facility]) 03/17/24 Future Scheduled Tests Laboratory* Lipid Panel 07/27/23 Radiology* CT Urogram 03/18/[address] [facility] 12-30-2024 Hospital Discharge instructions Patient Education 03/17/2024 09:58:43 [facility] - Cystoscopy Discharge Instructions (CUSTOM) Cystoscopy Voiding after the procedure: there may be some pain, burning, urgency, frequency and blood tinged urine following the procedure. These symptoms usually resolve within 2-5 days. Drink the amount of fluid it takes to keep the urine pink to yellow or clear in color. Drinking enough water and fluids will help to ease any discomfort after your procedure. If you are having problems that seem out of the ordinary, please call. If unable to contact your physician and you feel it is an emergency, go to the nearest emergency room or call 911 Diet you may resume your normal diet. Activity you may resume your normal activities Call if you have a fever over 100 degrees. Follow Up Care 01/22/2024 15:17:58 With:Maris Scott Address:Unknown When: Unknown Comments:Call for any problems. [facility] 12-30-2024 NoteProgress Note-Physician Patient: RAFI ROPER Age: 69 years Sex: Female : 1955 Associated Diagnoses: None Author: Tyler SHANNON, Maris Tony Health Status Allergies: Allergic Reactions (Selected) Severity Not Documented Latex- Wood[place]., Allergies (1) Active Severity Reaction Latex [place] Current medications: (Selected) Prescriptions Prescribed Estrace 0.1 mg/g Cream: See Instructions, 42.5 gm, Refill(s) 2, Apply pea sized amount to urethra/vagina 3x a week for 1 month, then 2x a week afterwards, [id number], 154, cm, 01/25/24 13:53:00 EST, Height/Length Dosing, 66.4, kg, 01/25/24 13:53:00 EST, Weight Dosing... Flonase 0.05 mg/inh [place]: 2 spray(s), Nasal, Daily, 16 gram, Refill(s) 0, each nostril, [id number], 154, cm, 09/10/23 11:04:00 EDT, Height/Length Dosing, 64, kg, 09/10/23 11:04:00 EDT, Weight Dosing Freestyle [place] Flash Glucose Monitoring 14 Day System (Sensor): Freestyle [place] Flash Glucose Monitoring 14 Day System (Sensor), See Instructions, 6 EA, 11, Freestyle [place] 2 Flash Glucose Monitoring 14 Day System (Sensor). Replace sensor every 14 days., [id number], 154.4, cm, 07/03/23 10:36:00 EDT... Lantus Solostar Pen 100 units/mL subcutaneous solution: See Instructions, INJECT 15 UNITS SUBCUTANEOUSLY IN THE MORNING AND 17 UNITS IN THE EVENING, # 30 Unspecified/Unknown, Refills(s) 1, Pharmacy: [id number], 154, cm, 01/25/24 13:53:00 EST, Height/Length Dosing, 66.4, kg, 01/25/24 13:53:00 EST, Weig... Pen Needle 31G x 6mm: Pen Needle 31G x 6mm, See Instructions, 100 EA, 1, Pen Needle 31G x 6mm. Pt needs 5 boxes of 3 months supply., [id number], Supply, 154, cm, 01/01/24 9:31:00 EDT, Height/Length Dosing, 66.8, kg, 01/01/24 9:31:00 EDT, Weight Dosing Questran 4 g/9 g oral powder: = 1 packet(s), Oral, BID, # 60 EA, Refills(s) 0, [id number], 164, cm, 01/24/24 8:54:00 EST, Height/Length Dosing, 66, kg, 01/24/24 8:54:00 EST, Weight Dosing Zetia 10 mg Tab: 10 mg = 1 tab(s), Oral, Daily, # 90 tab(s), Refills(s) 1, [id number], 154, cm, 09/10/23 11:04:00 EDT, Height/Length Dosing, 64, kg, 09/10/23 11:04:00 EDT, Weight Dosing atorvastatin 80 mg Tab: 80 mg = 1 tab(s), Oral, Daily, # 90 tab(s), Refills(s) 3, [id number], 154, cm, 07/29/23 12:14:00 EDT, Height/Length Dosing, 63.5, kg, 07/29/23 12:14:00 EDT, Weight Dosing fluticasone Nasal 0.05 mg/inh Comfort: See Instructions, 48 mL, Refill(s) 1, USE 2 SPRAYS IN EACH NOSTRIL ONCE A DAY, [id number], 154, cm, 09/10/23 11:04:00 EDT, Height/Length Dosing, 64, kg, 09/10/23 11:04:00 EDT, Weight Dosing gabapentin 300 mg Cap: 300 mg = 1 cap(s), Oral, Once a day (at bedtime), # 90 cap(s), Refills(s) 3,[id number], 154, cm, 07/29/23 12:14:00 EDT, Height/Length Dosing, 63.5, kg, 07/29/23 12:14:00 EDT, Weight Dosing hydrochlorothiazide 12.5 mg Cap: 12.5 mg = 1 cap(s), Oral, Daily, # 90 cap(s), Refills(s) 3, [id number], 154, cm, 01/25/24 13:53:00 EST, Height/Length Dosing, 66.4, kg, 01/25/24 13:53:00 EST, Weight Dosing levothyroxine 50 mcg (0.05 mg) Tab: 50 mcg = 1 tab(s), Oral, Daily, # 90 tab(s), Refills(s) 3, [id number], 154.4, cm, 03/01/23 15:22:00 EST, Height/Length Dosing, 62.7, kg, 03/01/2315:22:00 EST, Weight Dosing losartan 50 mg Tab: 50 mg = 1 tab(s), Oral, BID, # 180 tab(s), Refills(s) 1, [id number], 154, cm, 01/01/24 9:31:00 EDT, Height/Length Dosing, 66.8, kg, 01/01/24 9:31:00 EDT, Weight Dosing magnesium oxide 400 mg Tab: See Instructions, TAKE 1 TABLET BY MOUTH EVERY DAY, # 90 tab(s), Refills(s) 3, Pharmacy: [id number], 154, cm, 09/10/23 11:04:00 EDT, Height/Length Dosing, 64, kg, 09/10/23 11:04:00 EDT, Weight Dosing metformin 500 mg ER Tab: 500 mg = 1 tab(s), Oral, Daily, # 90 tab(s), Refills(s) 3, [id number], 154.4, cm, 04/23/23 9:26:00 EST, Height/Length Dosing, 63.5, kg, 04/23/23 9:26:00 EST, Weight Dosing metoprolol 100 mg ER Tab: 100 mg = 1 tab(s), Oral, Daily, # 30 tab(s), Refills(s) 6, [id number], 154, cm, 07/27/23 10:05:00 EDT, Height/Length Dosing, 63.3, kg, 07/27/23 10:05:00 EDT, Weight Dosing Documented Medications Documented Misc DME Prescription: See Instructions, BD ultra fine mini pen needles 31G X 3/16 Use 6 times a day to inject insulin Dx E10.8, Supply NovoLOG FlexPen 100 units/mL injectable solution: See Instructions, check blood sugars AC and Hs and cover 150-200 2u, 201-250 4u, 251-300 6u, 301-350 8u, 351- 400 10u and 1unit per 15 carbs, Refills(s) 0 aspirin 81 mg Oral EC Tab: 81 mg = 1 tab(s), Oral, Daily, Refills(s) 0, Prophylaxis cholestyramine: Refills(s) 0 Impression and Plan Assessment and Plan: Diagnosis: Vaginal atrophy ([id number] N95.2, Discharge, Medical), Urethral caruncle ([id number] N36.2, Discharge, Medical), Microscopic hematuria ([id number] R31.29, Discharge, Medical). 69-year-old female with history of chronic (more content not included)...[facility]:Result Comment: Electronically Signed By: Tyler SHANNON, Maris Tony\.br\Date and Time Signed: 03/17/24 [id number] Note Patient Education Cystoscopy ??? Voiding after the procedure: there may be some pain, burning, urgency, frequency and blood tinged urine following the procedure. These symptoms usually resolve within 2-5 days. Drink the amount of fluid it takes to keep the urine pink to yellow or clear in color. Drinking enough water and fluids will help to ease any discomfort after your procedure. ??? If you are having problems that seem out of the ordinary, please call. ??? If unable to contact your physician and you feel it is an emergency, go to the nearest emergency room or call 911 ??? Diet ??? you may resume your normal diet. ??? Activity ??? you may resume your normal activities ??? Call if you have a fever over 100 degrees.[facility] 01-17-2024 Hospital Discharge instructions Patient Education 01/17/2024 13:01:16 Hematuria, Adult Hematuria, Adult Hematuria is blood in the urine. Blood may be visible in the urine, or it may be identified with a test. This condition can be caused by infections of the bladder, urethra, kidney, or prostate. Otherpossible causes include: Kidney stones. Cancer of the urinary tract. Too much calcium in the urine. Conditions that are passed from parent to child (inherited conditions). Exercise that requires a lot of energy. Infections can usually be treated with medicine, and a kidney stone usually will pass through your urine. If neither of these is the cause of your hematuria, more tests may be needed to identify the cause of your symptoms. It is very important to tell your health care provider about any blood in your urine, even if it ispainless or the blood stops without treatment. Blood in the urine, when it happens and then stops and then happens again, can be a symptom of a very serious condition, including cancer. There is no pain in the initial stages of many urinary cancers. Follow these instructions at home: Medicines Take dira-tjl-rrrnwtt and prescription medicines only as told by your health care provider. If you were prescribed an antibiotic medicine, take it as told by your health care provider. Do notstop taking the antibiotic even if you start to feel better. Eating and drinking Drink enough fluid to keep your urine pale yellow. It is recommended that you drink 3 4 quarts (2.83.8 L) a day. If you have been diagnosed with an infection, drinking cranberry juice in addition tolarge amounts of water is recommended. Avoid caffeine, tea, and carbonated beverages. These tend to irritate the bladder. Avoid alcohol because it may irritate the prostate (in males). General instructions If you have been diagnosed with a kidney stone, follow your health care provider's instructions about straining your urine to catch the stone. Empty your bladder often. Avoid holding urine for long periods of time. If you are female: ?After a bowel movement, wipe from front to back and use each piece of toilet paper only once. ?Empty your bladder before and after sex. Pay attention to any changes in your symptoms. Tell your health care provider about any changes or any new symptoms. It is up to you to get the results of any tests. Ask your health care provider, or the department that is doing the test, when your results will be ready. Keep all follow-up visits. This is important. Contact a health care provider if: You develop back pain. You have a fever or chills. You have nausea or vomiting. Your symptoms do not improve after 3 days. Your symptoms get worse. Get help right away if: You develop severe vomiting and are unable to take medicine without vomiting. You develop severe pain in your back or abdomen even though you are taking medicine. You pass a large amount of blood in your urine. You pass blood clots in your urine. You feel very weak or like you might faint. You faint. Summary Hematuria is blood in the urine. It has many possible causes. It is very important that you tell your health care provider about any blood in your urine, even ifit is painless or the blood stops without treatment. Take pomk-osa-gyjvhvy and prescription medicines only as told by your health care provider. Drink enough fluid to keep your urine pale yellow. This information is not intended to replace advice given to you by your health care provider. Make sure you discuss any questions you have with your health care provider. Document Revised: 11/03/2020 Document Reviewed: 11/03/2020 [employer] Patient Education 2023 Quid. Follow Up Care 01/02/2024 10:16:49 With:KAYLA GEORGE PA-C, URL Address: [address] [place] [address] When: Unknown [facility] 10-31-2024 NotePatient Education Urology Hematuria, Adult Hematuria is blood in the urine. Blood may be visible in the urine, or it may be identified with a test. This condition can be caused by infections of the bladder, urethra, kidney, or prostate. Otherpossible causes include: ??? Kidney stones. ??? Cancer of the urinary tract. ??? Too much calcium in the urine. ??? Conditions that are passed from parent to child (inherited conditions). ??? Exercise that requires a lot of energy. Infections can usually be treated with medicine, and a kidney stone usually will pass through your urine. If neither of these is the cause of your hematuria, more tests may be needed to identify the cause of your symptoms. It is very important to tell your health care provider about any blood in your urine, even if it ispainless or the blood stops without treatment. Blood in the urine, when it happens and then stops and then happens again, can be a symptom of a very serious condition, including cancer. There is no pain in the initial stages of many urinary cancers. Follow these instructions at home: Medicines ??? Take gsrs-rbu-hupvrbh and prescription medicines only as told by your health care provider. ??? If you were prescribed an antibiotic medicine, take it as told by your health care provider. Donot stop taking the antibiotic even if you start to feel better. Eating and drinking ??? Drink enough fluid to keep your urine pale yellow. It is recommended that you drink 3?4 quarts (2.8?3.8 L) a day. If you have been diagnosed with an infection, drinking cranberry juice in addition to large amounts of water is recommended. ??? Avoid caffeine, tea, and carbonated beverages. These tend to irritate the bladder. ??? Avoid alcohol because it may irritate the prostate (in males). General instructions ??? If you have been diagnosed with a kidney stone, follow your health care provider's instructionsabout straining your urine to catch the stone. ??? Empty your bladder often. Avoid holding urine for long periods of time. ??? If you are female: ? After a bowel movement, wipe from front to back and use each piece of toilet paper only once. ? Empty your bladder before and after sex. ??? Pay attention to any changes in your symptoms. Tell your health care provider about any changesor any new symptoms. ??? It is up to you to get the results of any tests. Ask your health care provider, or the department that is doing the test, when your results will be ready. ??? Keep all follow-up visits. This is important. Contact a health care provider if: ??? You develop back pain. ??? You have a fever or chills. ??? You have nausea or vomiting. ??? Your symptoms do not improve after 3 days. ??? Your symptoms get worse. Get help right away if: ??? You develop severe vomiting and are unable to take medicine without vomiting. ??? You develop severe pain in your back or abdomen even though you are taking medicine. ??? You pass a large amount of blood in your urine. ??? You pass blood clots in your urine. ??? You feel very weak or like you might faint. ??? You faint. Summary ??? Hematuria is blood in the urine. It has many possible causes. ??? It is very important that you tell your health care provider about any blood in your urine, even if it is painless or the blood stops without treatment. ??? Take aedh-yze-tpomwwr and prescription medicines only as told by your health care provider. ??? Drink enough fluid to keep your urine pale yellow. This information is not intended to replace advice given to you by your health care provider. Make sure you discuss any questions you have with your health care provider. Document Revised: 11/03/2020 Document Reviewed: 11/03/2020 [employer] Patient Education ? 2023 Quid.[facility] 10-03-2023 NoteNurse Consultation Note Reason for Visit Here for lab draw for Dr Rivera Assessment/Plan Diabetes type I (E10.9: Type 1 diabetes mellitus without complications) Hyperlipidemia (E78.5: Hyperlipidemia, unspecified) Medications aspirin 81 mg Oral EC Tab, 81 mg= 1 tab(s), Oral, Daily atorvastatin 80 mg Tab, 80 mg= 1 tab(s), Oral, Daily, 3 refills dapagliflozin 10 mg oral tablet, 10 mg= 1 tab(s), Oral, Daily, 6 refills Diflucan 150 mg Tab, 150 mg= 1 tab(s), Oral, Once Flonase 0.05 mg/inh [place], 2 spray(s), Nasal, Daily fluticasone Nasal 0.05 mg/inh Comfort, See Instructions Freestyle Lokes[place] Flash Glucose Monitoring 14 Day System (Sensor), See Instructions, 11 refills gabapentin 300 mg Cap, 300 mg= 1 cap(s), Oral, Once a day (at bedtime), 3 refills Lantus Solostar Pen 100 units/mL subcutaneous solution, See Instructions, 3 refills levothyroxine 50 mcg (0.05 mg) Tab, 50 mcg= 1 tab(s), Oral, Daily, 3 refills losartan 50 mg Tab, 50 mg= 1 tab(s), Oral, BID, 6 refills magnesium oxide 400 mg Tab, 400 mg= 1 tab(s), Oral, Daily, 3 refills magnesium oxide 400 mg Tab, 400 mg= 1 tab(s), Oral, Daily, 4 refills metformin 500 mg ER Tab, 500 mg= 1 tab(s), Oral, Daily, 3 refills metoprolol 100 mg ER Tab, 100 mg= 1 tab(s), Oral, Daily, 6 refills metoprolol 50 mg ER Tab, 50 mg= 1 tab(s), Oral, Daily, 3 refills Misc DME Prescription, See Instructions NovoLOG FlexPen 100 units/mL injectable solution, See Instructions Zetia 10 mg Tab, 10 mg= 1 tab(s), Oral, Daily, 6 refills Allergies Latex ([place]) Immunizations Vaccine Date Status Comments influenza virus vaccine, inactivated 12/21/2022 Recorded influenza virus vaccine, inactivated 12/20/2021 Recorded SARS-CoV-2 (COVID-19) [id number] 11/28/2021 Recorded 2022-06-29: [id number] influenza virus vaccine, inactivated 11/23/2021 Recorded SARS-CoV-2 (COVID-19) mRNA-1273 vaccine 06/29/2021 Recorded SARS-CoV-2 (COVID-19) mRNA-1273 vaccine 01/08/2021 Recorded 2022-06-29: [id number] influenza virus vaccine, inactivated 12/04/2020 Recorded SARS-CoV-2 (COVID-19) mRNA-1273 vaccine 05/25/2020 Recorded SARS-CoV-2 (COVID-19) mRNA-1273 vaccine 04/26/2020 Recorded influenza virus vaccine, inactivated 12/01/2019 Recorded influenza virus vaccine, inactivated 11/14/2018 Recorded pneumococcal 23-valent vaccine 07/01/2018 Recorded zoster vaccine, inactivated 05/21/2018 Recorded pneumococcal 23-valent vaccine 01/28/2018 Recorded influenza virus vaccine, live, trivalent 11/30/2017 Recorded influenza virus vaccine, inactivated 11/14/2017 Recorded zoster vaccine, inactivated 11/06/2017 Recorded diphtheria/pertussis, acel/tetanus adult 01/15/2017 Recorded influenza virus vaccine, inactivated 12/12/2016 Recorded influenza virus vaccine, inactivated 12/08/2015 Recorded zoster vaccine live 01/28/2014 Recorded Hep A, unspecified formulation 12/07/2000 Recorded Hep A, unspecified formulation [facility]/30/[facility] Consultation Note Reason for Visit Here for lab draw for Dr Rivera Assessment/Plan Diabetes type I (E10.9: Type 1 diabetes mellitus without complications) Hyperlipidemia (E78.5: Hyperlipidemia, unspecified) Medications aspirin 81 mg Oral EC Tab, 81 mg= 1 tab(s), Oral, Daily atorvastatin 80 mg Tab, 80 mg= 1 tab(s), Oral, Daily, 3 refills dapagliflozin 10 mg oral tablet, 10 mg= 1 tab(s), Oral, Daily, 6 refills Diflucan 150 mg Tab, 150 mg= 1 tab(s), Oral, Once Flonase 0.05 mg/inh [place], 2 spray(s), Nasal, Daily fluticasone Nasal 0.05 mg/inh Comfort, See Instructions Freestyle Lokesh Flash Glucose Monitoring 14 Day System (Sensor), See Instructions, 11 refills gabapentin 300 mg Cap, 300 mg= 1 cap(s), Oral, Once a day (at bedtime), 3 refills Lantus Solostar Pen 100 units/mL subcutaneous solution, See Instructions, 3 refills levothyroxine 50 mcg (0.05 mg) Tab, 50 mcg= 1 tab(s), Oral, Daily, 3 refills losartan 50 mg Tab, 50 mg= 1 tab(s), Oral, BID, 6 refills magnesium oxide 400 mg Tab, 400 mg= 1 tab(s), Oral, Daily, 3 refills magnesium oxide 400 mg Tab, 400 mg= 1 tab(s), Oral, Daily, 4 refills metformin 500 mg ER Tab, 500 mg= 1 tab(s), Oral, Daily, 3 refills metoprolol 100 mg ER Tab, 100 mg= 1 tab(s), Oral, Daily, 6 refills metoprolol 50 mg ER Tab, 50 mg= 1 tab(s), Oral, Daily, 3 refills Misc DME Prescription, See Instructions NovoLOG FlexPen 100 units/mL injectable solution, See Instructions Zetia 10 mg Tab, 10 mg= 1 tab(s), Oral, Daily, 6 refills Allergies Latex ([place]ward) Immunizations Vaccine Date Status Comments influenza virus vaccine, inactivated 12/21/2022 Recorded influenza virus vaccine, inactivated 12/20/2021 Recorded SARS-CoV-2 (COVID-19) [id number] 11/28/2021 Recorded 2022-06-29: [id number] influenza virus vaccine, inactivated 11/23/2021 Recorded SARS-CoV-2 (COVID-19) mRNA-1273 vaccine 06/29/2021 Recorded SARS-CoV-2 (COVID-19) mRNA-1273 vaccine 01/08/2021 Recorded 2022-06-29: [id number] influenza virus vaccine, inactivated 12/04/2020 Recorded SARS-CoV-2 (COVID-19) mRNA-1273 vaccine 05/25/2020 Recorded SARS-CoV-2 (COVID-19) mRNA-1273 vaccine 04/26/2020 Recorded influenza virus vaccine, inactivated 12/01/2019 Recorded influenza virus vaccine, inactivated 11/14/2018 Recorded pneumococcal 23-valent vaccine 07/01/2018 Recorded zoster vaccine, inactivated 05/21/2018 Recorded pneumococcal 23-valent vaccine 01/28/2018 Recorded influenza virus vaccine, live, trivalent 11/30/2017 Recorded influenza virus vaccine, inactivated 11/14/2017 Recorded zoster vaccine, inactivated 11/06/2017 Recorded diphtheria/pertussis, acel/tetanus adult 01/15/2017 Recorded influenza virus vaccine, inactivated 12/12/2016 Recorded influenza virus vaccine, inactivated 12/08/2015 Recorded zoster vaccine live 01/28/2014 Recorded Hep A, unspecified formulation 12/07/2000 Recorded Hep A, unspecified formulation 05/30/[facility] Discharge instructions Patient Education 07/29/2023 14:41:41 Hypertension, Adult Hypertension, Adult High blood pressure (hypertension) is when the force of blood pumping through the arteries is too strong. The arteries are the blood vessels that carry blood from the heart throughout the body. Hypertension forces the heart to work harder to pump blood and may cause arteries to become narrow or stiff. Untreated or uncontrolled hypertension can lead to a heart attack, heart failure, a stroke, kidney disease, and other problems. A blood pressure reading consists of a higher number over a lower number. Ideally, your blood pressure should be below 120/80. The first ( top ) number is called the systolic pressure. It is a measure of the pressure in your arteries as your heart beats. The second ( bottom ) number is called the diastolic pressure. It is a measure of the pressure in your arteries as the heart relaxes. What are the causes? The exact cause of this condition is not known. There are some conditions that result in high bloodpressure. What increases the risk? Certain factors may make you more likely to develop high blood pressure. Some of these risk factorsare under your control, including: Smoking. Not getting enough exercise or physical activity. Being overweight. Having too much fat, sugar, calories, or salt (sodium) in your diet. Drinking too much alcohol. Other risk factors include: Having a personal history of heart disease, diabetes, high cholesterol, or kidney disease. Stress. Having a family history of high blood pressure and high cholesterol. Having obstructive sleep apnea. Age. The risk increases with age. What are the signs or symptoms? High blood pressure may not cause symptoms. Very high blood pressure (hypertensive crisis) may cause: Headache. Fast or irregular heartbeats (palpitations). Shortness of breath. Nosebleed. Nausea and vomiting. Vision changes. Severe chest pain, dizziness, and seizures. How is this diagnosed? This condition is diagnosed by measuring your blood pressure while you are seated, with your arm resting on a flat surface, your legs uncrossed, and your feet flat on the floor. The cuff of the bloodpressure monitor will be placed directly against the skin of your upper arm at the level of your heart. Blood pressure should be measured at least twice using the same arm. Certain conditions can cause a difference in blood pressure between your right and left arms. If you have a high blood pressure reading during one visit or you have normal blood pressure with other risk factors, you may be asked to: Return on a different day to have your blood pressure checked again. Monitor your blood pressure at home for 1 week or longer. If you are diagnosed with hypertension, you may have other blood or imaging tests to help your health care provider understand your overall risk for other conditions. How is this treated? This condition is treated by making healthy lifestyle changes, such as eating healthy foods, exercising more, and reducing your alcohol intake. You may be referred for counseling on a healthy diet and physical activity. Your health care provider may prescribe medicine if lifestyle changes are not enough to get your blood pressure under control and if: Your systolic blood pressure is above 130. Your diastolic blood pressure is above 80. Your personal target blood pressure may vary depending on your medical conditions, your age, and other factors. Follow these instructions at home: Eating and drinking Eat a diet that is high in fiber and potassium, and low in sodium, added sugar, and fat. An exampleof this eating plan is called the DASH diet. DASH stands for Dietary Approaches to Stop Hypertension. To eat this way: ?Eat plenty of fresh fruits and vegetables. Try to fill one half of your plate at each meal with fruits and vegetables. ?Eat whole grains, such as whole-wheat pasta, brown rice, or whole-grain bread. Fill about one fourth of your plate with whole grains. ?Eat or drink low-fat dairy products, such as skim milk or low-fat yogurt. ?Avoid fatty cuts of meat, processed or cured meats, and poultry with skin. Fill about one fourth of your plate with lean proteins, such as fish, chicken without skin, beans, eggs, or tofu. ?Avoid pre-made and processed foods. These tend to be higher in sodium, added sugar, and fat. Reduce your daily sodium intake. Many people with hypertension should eat less than 1,500 mg of sodium a day. Do not drink alcohol if: ?Your health care provider tells you not to drink. ?You are , may be , or are planning to become . If you drink alcohol: ?Limit how much you have to: ?0 1 drink a day for women. ?0 2 drinks a day for men. ?Know how much alcohol is in your drink. In the [place] one drink equals one 12 oz bottle of beer (355 mL), one 5 oz glass of wine (148 mL), or one 1 oz glass of hard liquor (44 mL). Lifestyle Work with your health care provider to maintain a healthy body weight or to lose weight. Ask what an ideal weight is for you. Get at least 30 minutes of exercise that causes your heart to beat faster (aerobic exercise) most days of the week. Activities may include walking, swimming, or biking. Include exercise to strengthen your muscles (resistance exercise), such as Pilates or lifting weights, as part of your weekly exercise routine. Try to do these types of exercises for 30 minutes at least 3 days a week. Do not use any products that contain nicotine or tobacco. These products include cigarettes, chewing tobacco, and vaping devices, such as e-cigarettes. If you need help quitting, ask your health careprovider. Monitor your blood pressure at home as told by your health care provider. Keep all follow-up visits. This is important. Medicines Take suyc-wbc-woarmvp and prescription medicines only as told by your health care provider. Follow directions carefully. Blood pressure medicines must be taken as prescribed. Do not skip doses of blood pressure medicine. Doing this puts you at risk for problems and can makethe medicine less effective. Ask your health care provider about side effects or reactions to medicines that you should watch for. Contact a health care provider if you: Think you are having a reaction to a medicine you are taking. Have headaches that keep coming back (recurring). Feel dizzy. Have swelling in your ankles. Have trouble with your vision. Get help right away if you: Develop a severe headache or confusion. Have unusual weakness or numbness. Feel faint. Have severe pain in your chest or abdomen. Vomit repeatedly. Have trouble breathing. These symptoms may be an emergency. Get help right away. Call 911. Do not wait to see if the symptoms will go away. Do not drive yourself to the hospital. Summary Hypertension is when the force of blood pumping through your arteries is too strong. If this condition is not controlled, it may put you at risk for serious complications. Your personal target blood pressure may vary depending on your medical conditions, your age, and other factors. For most people, a normal blood pressure is less than 120/80. Hypertension is treated with lifestyle changes, medicines, or a combination of both. Lifestyle changes include losing weight, eating a healthy, low-sodium diet, exercising more, and limiting alcohol. This information is not intended to replace advice given to you by your health care provider. Make sure you discuss any questions you have with your health care provider. Document Revised: 01/10/2022 Document Reviewed: 01/10/2022 [employer] Patient Education 2022 Quid. Follow Up Care 07/29/2023 11:49:41 With:Janes Rivera Address: [facility] [place] [address]- [phone] Business (1) When:08/01/2023 14:03:01 Comments:Make sure to take your blood pressure twice a day as instructed and when you have symptoms and follow-up with Dr. Rivera. Return to the emergency room if you develop chest pain, dizziness, headache or any new symptoms. With:Francisco Mckeon Address:Unknown When:Within 3 Day(s) [facility]05-12-2024 Evaluation + Plan noteExtracted from: Title:ED Note Author:Alise Robin M.D. te:07/29/23 1. Hypertension (I10: Essent ial (primary) hypertension) Orders: Basic Metabolic Panel CBC w/ Auto Diff eGFR Extra Blue Tube Extra SST Tube Hepatic Function Panel Saline Lock Insert Troponin 0 Hr. Troponin 1 Hr. Troponin 3 Hr. Troponin 6 Hr. Future Appointments Appointment Date:01/01/2024 09:15:00 AM Scheduled Provider:Francisco Mckeon MD Location:[facility] Appointment Type: Open Appointment Date:01/25/2024 01:45:00 PM Scheduled Provider:Janes Rivera MD [facility] [place] [facility] Type:Cardiology Follow Up (FT) Future Scheduled Tests Laboratory* Lipid Panel 07/27/[address] [facility]11-07-2023 History of Present illness Narrative* Jason Alex, DO - 01/23/2023 1:10 PM EST Subjective Rafi Roper is a 67 y.o. female Chief Complaint Follow-up 67-year-old female returns for annual follow-up she is doing very well she has had no cardiovascular events or symptoms, nitrate usage or hospitalizations over the past 1 year. 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 Underlying comorbidities continue to include hypertension that slightly elevated today, hyperlipidemia and diabetes mellitus. Her last lipid panel from July 2022 is reviewed and in excellent shape. [place] not need any further lipid assessment until the next 6 months She is a non-smoker remains active walking on a daily basis We will address the hypertension today, escalate losartan to 50 daily, reassess her labs via her primary care physician within the next 6 months, follow-up in 1 year Review of Systems Neurological: Positive for dizziness. All other systems reviewed and are negative. Visit Vitals BP 152/78 (BP Location: Left arm, Patient Position: Sitting) Pulse 76 Ht 1.651 m (5' 5 ) Wt 64 kg (141 lb) BMI 23.46 kg/m Smoking Status Never BSA 1.71 m Objective Physical Exam Constitutional: Appearance: Normal appearance. She is normal weight. HENT: Nose: Nose normal. Neck: Vascular: No carotid bruit. Cardiovascular: Rate and Rhythm: Normal rate. Pulses: Normal pulses. Heart sounds: Normal heart sounds. Pulmonary: Effort: Pulmonary effort is normal. Abdominal: General: Bowel sounds are normal. Palpations: Abdomen is soft. Genitourinary: Rectum: Normal. Musculoskeletal: General: Normal range of motion. Cervical back: Normal range of motion. Right lower leg: No edema. Left lower leg: No edema. Skin: General: Skin is warm and dry. Neurological: General: No focal deficit present. Mental Status: She is alert. Psychiatric: Mood and Affect: Mood normal. Behavior: Behavior normal. Thought Content: Thought content normal. Judgment: Judgment normal. Current Medications Current Outpatient Medications: aspirin 81 mg EC tablet, Take 1 tablet (81 mg) by mouth once daily., Disp: , Rfl: atorvastatin (Lipitor) 80 mg tablet, Take 1 tablet (80 mg) by mouth once daily at bedtime., Disp: ,Rfl: docusate sodium (Colace) 100 mg tablet, Take 1 tablet (100 mg) by mouth 2 times a day., Disp: , Rfl: GABAPENTIN ORAL, Take by mouth once daily., Disp: , Rfl: insulin aspart (NovoLOG U-100 Insulin aspart) 100 unit/mL injection, Inject 1 Units under the skin 3 times a day before meals. Take as directed per insulin instructions., Disp: , Rfl: insulin detemir (Levemir FlexTouch U100 Insulin) 100 unit/mL (3 mL) pen, Inject under the skin., Disp: , Rfl: levothyroxine (Synthroid, Levoxyl) 25 mcg tablet, Take 1 tablet (25 mcg) by mouth once daily in themorning. Take before meals., Disp: , Rfl: losartan (Cozaar) 25 mg tablet, Take 1 tablet (25 mg) by mouth once daily., Disp: , Rfl: magnesium oxide (Mag-Ox) 400 mg tablet, Take 1 tablet (400 mg) by mouth once daily., Disp: , Rfl: metFORMIN (Glucophage) 500 mg tablet, Take 1 tablet (500 mg) by mouth once daily., Disp: , Rfl: metoprolol succinate XL (Toprol-XL) 50 mg 24 hr tablet, Take 1 tablet (50 mg) by mouth once daily.,Disp: , Rfl: Assessment/Plan 1. Arteriosclerotic heart disease (ASHD) 2. History of myocardial infarction 3. Hyperlipidemia, unspecified hyperlipidemia type 4. Essential hypertension, benign 5. S/P CABG x 3 6. Paroxysmal atrial fibrillation (CMS/HCC) 7. Other specified diabetes mellitus with other specified complication, with long-term current use of insulin (CMS/HCC) [facility] Work Phone: [phone]) 159-628811-07-2023 Instructions* Patient Instructions* Anastasiia Berg LPN - 01/23/2023 1:10 PM EST Please bring all medicines, vitamins, and herbal supplements with you when you come to the office. Prescriptions will not be filled unless you are compliant with your follow up appointments or have a follow up appointment scheduled as per instruction of your physician. Refills should be requested at the time of your visit. documented in [facility]Bl[facility] Work Phone: 1(570) 147-793206-23-2021 NoteHNO ID: [id number] Author: Lela Enriquez MD Service: ? Author Type: Physician Type: Progress Notes Filed: 09/30/2020 3:09 PM Note Text: [facility] Virtual Follow-Up Visit We had a virtual visit conducted via [employer]. I received consent from the patient to perform the visit using this platform. Diagnosis: Left frontal mass Subjective History of Present Illness: The patient is a 65 year old, right handed female evaluated for vertigo and found to have left frontal dural based lesion. September 07, 2020 update: Patient is doing well with no new symptoms or concerns. She denies any headaches, nausea, vomiting, weakness, numbness, seizures, or visual changes and vertigo is improved. Therapy Status Data Form Past Medical History: PAST MEDICAL HISTORY Diagnosis Date - Diabetes mellitus - GERD (gastroesophageal reflux disease) - H/O cholecystitis - Hypertension Past Surgical History: PAST SURGICAL HISTORY Procedure Laterality Date - DELIVERY ONLY 1979, 1980 , low transverse - LAPAROSCOPIC CHOLEYCYSTECTOMY 2008 Cholecystectomy, lap - PAST SURGICAL HISTORY OF 2003 right elbow Family History: No family history on file. Social History Tobacco Use - Smoking status: Never Smoker Substance Use Topics - Alcohol use: No - Drug use: No Allergies: Latex Current Outpatient Medications Medication Sig - iv contrast (will be provided with radiology test) MRI Brain Inject, intravenously, once for 1 [...] in the MR contrast administration guidelines link - metFORMIN 500 mg 24 hr tablet Take 500 mg by mouth daily with breakfast. - glyBURIDE 5 mg tablet Take 5 mg by mouth daily with breakfast. - lisinopril (PRINIVIL) 10 mg tablet Take 1 tablet by mouth once daily. - ASPIRIN 81 MG TABLET Take one (1) tablet daily . No current facility-administered medications for this visit. Review of systems: Constitutional: No recent fever or weight loss. Eyes: No history of glaucoma or cataracts. ENMT: No recent ear infection, nasal congestion, mouth sores or sore throat. CV: No history of chest pain, palpitations or leg swelling. Respiratory: No history of SOB, asthma or recent cough. Gastrointestinal: No history of nausea, vomiting, dysphagia or abdominal pain. Genitourinary: No history of hematuria or dysuria. Musculoskeletal: No complaint of arthritis, unstable gait or arm/leg weakness. Psychiatric: No history of hallucinations or depression or anxiety. ROS Neurological: No complaint of headache. No complaint of tinnitus. No complaint of decreased hearing. No complaint of diplopia. No complaints of decreased visual acuity. No complaint of arm/leg numbness. No problem with limb coordination. No complaint of syncope, seizures or disorientation. Objective Physical Exam: General appearance: well appearing, in no acute distress, alert Neurological Physical exam: This was a virtual visit General : Awake, alert, appropriately conversant. No apparent distress Higher integrative functions: Oriented to person, place AND time. Memory, Attention Span and Concentration: Good. 3rd ,4th ,6th CN: full extra-ocular movements. 5th CN: No decrease in facial sensation. 7th CN: Facial muscles move symmetrically. 8th CN Hears finger rub well bilaterally. 9th AND 10th CN: Palate moves symmetrically 11th CN: Shoulder shrug symmetrical 12th CN: Tongue protrusion full and midline. Motor: No obvious motor weakness noted and non-focal exam including no drift Sensory: No asymmetry noted by patient. Musculoskeletal: Gait is normal. Coordination: BRAULIO KPS and ECOG Provider Data Form No flowsheet data found. Labs: No flowsheet data found. No flowsheet data found. Imaging: MRI Report MRI BRAIN WO/W IVCON Exam End: 09/01/2020 10:36 AM (Final result) Narrative: * * *Final Report* * * DATE OF EXAM: Sep 01 2020 10:36AM [facility] [id number] - MRI BRAIN WO/W IVCON / PROCEDURE REASON: Benign neoplasm of meninges (HCC) * * * * Physician Interpretation * * * * EXAMINATION: MRI BRAIN WO/W IVCON HISTORY: Benign neoplasm of meninges (HCC). This information is taken directly from the stock order lister system. TECHNIQUE: Routine brain MRI protocol without and with contrast including diffusion and gradient echo images. MQ: MRBWOW_2 Contrast: 13 mL Dotarem IV COMPARISON: None. RESULT: Acute Change: There is no evidence of an acute intracranial process. Hemorrhage: No evidence of prior parenchymal hemorrhage on SWI. Mass Lesion/ Mass Effect: There is a stabl (more content not included)... [facility]02-19-2021 NoteHNO ID: [id number] Author: Lela Enriquez Service: ? Author Type: Physician Type: Progress Notes Filed: 05/07/2020 10:37 AM Note Text: [facility] OUTPATIENT CONSULTATION [facility] CONSULTATION Virtual vist This visit was conducted as a virtual (audio and video) visit. I received consent from the patient to perform the visit using this platform. Rafi Roper is sent for neurosurgical evaluation and consultation. Patient spouse was present during this visit. CHIEF COMPLAINT: Left frontal extra-axial lesion ?? meningioma HISTORY OF PRESENT ILLNESS: The patient is a 65 year old, right handed female. She has an episode of vertigo which was presumed to be related to benign positional vertigo but as a component of her work-up she underwent an MRI scan revealing a left frontal lesion although the scan was done without contrast making it difficult to ascertain the nature of the lesion. Of note, she has no significant past medical history including no malignant history. She has never undergone brain imaging, either CT or MRI. Her vertigo symptoms have partially improved with ongoing physical therapy but do not appear to have fully resolved. Otherwise, she denies other neurological symptoms specifically including: No complaint of headache No complaint of tinnitus No complaint of decreased hearing No complaint of diplopia No complaints of blurred vision. No complaint of arm/leg numbness No problem with limb coordination No complaint of syncope No complaints of seizures. No complaints of memory changes or disorientation. REVIEW OF SYSTEMS: Constitutional: No recent fever or weight loss. Eyes: No history of glaucoma or cataracts ENMT: No recent ear infection, nasal congestion, mouth sores or sore throat. CV: No history of chest pain, palpitations or leg swelling Respiratory: No history of SOB, wheezing or recent cough. Gastrointestinal: No history of nausea, vomiting, dysphagia or abdominal pain. Genitourinary: No history of hematuria or dysuria. Musculoskeletal: No complaint of arthritis, unstable gait or arm/leg weakness Psychiatric: No history of hallucinations, depression, or anxiety PAST MEDICAL HISTORY Diagnosis Date - Diabetes mellitus - GERD (gastroesophageal reflux disease) - H/O cholecystitis - Hypertension PAST SURGICAL HISTORY Procedure Laterality Date - DELIVERY ONLY 1979, 1980 , low transverse - LAPAROSCOPIC CHOLEYCYSTECTOMY 2009 Cholecystectomy, lap - PAST SURGICAL HISTORY OF 2004 right elbow Social History Tobacco Use - Smoking status: Never Smoker Substance Use Topics - Alcohol use: No - Drug use: No No family history on file. Current Outpatient Medications Medication Sig - metFORMIN 500 mg 24 hr tablet Take 500 mg by mouth daily with breakfast. - glyBURIDE 5 mg tablet Take 5 mg by mouth daily with breakfast. - lisinopril (PRINIVIL) 10 mg tablet Take 1 tablet by mouth once daily. - ASPIRIN 81 MG TABLET Take one (1) tablet daily . No current facility-administered medications for this visit. ALLERGIES Allergen Reactions - Latex Rash PHYSICAL EXAMINATION: Physical exam: this was a virtual visit General : Awake . Alert, conversant , not in pain or distress . Bilateral essential tremor. Higher integrative functions: Oriented to person, place AND time. Memory: Good recent and remote. Attention Span and Concentration: Good. Fund of Knowledge: Good. 3rd,4th,6th CN: full extraocular movements. 5th CN: No decrease in facial sensation. 7th CN: Facial muscles symmetric. 8th CN Hears finger rub well bilaterally. 12th CN: Tongue protrusion full and midline. Musculoskeletal: Gait is normal. Motor:no obvious motor weakness noted , no drift KPS score:90 Imaging : Non contrast MRI brain 04/26/2020: 1.7 cm left frontal extra-axial lesion with no clear edema. No hydrocephalus. No clear CN VII/VIII complex lesion. INFORMATION COLLECTED BY: Mariana Hankins MD Medical Decision Making Data Review: Personal review of medical records: I have reviewed with the patient's history, physical exam, the images and the chart as well the above information. I personally participated in the tapia components and agree with the above. Treatment Options and Risks: I have discussed the management options and their respective risks and benefits with the patient. We reviewed the radiographic findings ( above) and their significance. Based on the imaging studies we do have for today's appointment there is no acute role for neurosurgical intervention at this time. Unfortunately, the MRI performed was done without contrast enhancement so full evaluation of the Left frontal mass (which may be consistent with a small meningioma) could not be done. There is no associated FLAIR or T2 change around the lesion to suggest brain irritation related to a more sinister/rapidly growing intra (more content not included)...[facility] Future App[facility]ments Appointment Date:11/02/2021 08:15:00 AM Scheduled Provider:Tyler SHANNON, Maris Tony Location:[facility] Appointment Type:URO New Patient Diagnostic Tests Pending * Calculi Analysis Urinary 09/30/[address] [facility] Future Appointments Appointment Date:01/01/2024 09:15:00 AM Scheduled Provider:Francisco Mckeon MD Location:[facility] Appointment Type: Open [facility] Future Appointments Appointment Date:01/01/2024 09:15:00 AM Scheduled Provider:Francisco Mckeon MD Location:[facility] Appointment Type:FM Open Appointment Date:01/25/2024 01:45:00 PM Scheduled Provider:Janes Rivera MD Location:[facility] Appointment Type:Cardiology Follow Up (FT) Future Scheduled Tests Laboratory* Lipid Panel 07/27/[address] [facility] [address] [facility] Future Appointments Appointment Date:01/25/2024 01:45:00 PM Scheduled Provider:Janes Rivera MD Location:[facility] Appointment Type:Cardiology Follow Up (FT) Appointment Date:07/01/2024 08:30:00 AM Scheduled Provider:Francisco Mckeon MD Location:[facility] Appointment Type: Open Diagnostic Tests Pending * Urine Culture 01/01/24 Future Scheduled Tests Laboratory* Lipid Panel 07/27/23 Radiology* US PVR Lower EXT Complete Bilat 01/01/[address] [facility] Evaluation + Plan note Future Appointments Appointment Date:01/17/2024 12:40:00 PM Scheduled Provider:KAYLA GEORGE PA-C Location:[facility] Appointment Type:URO Complex Office Visit Appointment Date:01/24/2024 08:45:00 AM Scheduled Provider:Raman Garcia MD Location:[facility] Appointment Type:BADH New Patient Appointment Date:01/25/2024 01:45:00 PM Scheduled Provider:Janes Rivera MD Location:[facility] Appointment Type:Cardiology Follow Up (FT) Appointment Date:07/01/2024 08:30:00 AM Scheduled Provider:Francisco Mckeon MD Location:[facility] Appointment Type:FM Open Future Scheduled Tests Laboratory* Lipid Panel 07/27/[address] [facility] evaluation + Plan note Future Appointments Appointment Date:01/24/2024 08:45:00 AM Scheduled Provider:Raman Garcia MD Location:[facility] Appointment Type:BAD New Patient Appointment Date:01/25/2024 01:45:00 PM Scheduled Provider:Janes Rivera [facility] Appointment Type:Cardiology Follow Up (FT) Appointment Date:07/01/2024 08:30:00 AM Scheduled Provider:Francisco Mckeon MD Location:[facility] Appointment Type:FM Open Future Scheduled Tests Laboratory* Lipid Panel 07/27/[address] [facility] evaluation + Plan note Future Appointments Appointment Date:01/24/2024 08:45:00 AM Scheduled Provider:Raman Garcia MD Location:[facility] Appointment Type:[facility] New Patient Appointment Date:01/25/2024 01:45:00 PM Scheduled Provider:Janes Rivera MD [facility] Appointment Type:Cardiology Follow Up (FT) Appointment Date:07/01/2024 08:30:00 AM Scheduled Provider:Francisco Mckeon MD Location:[facility] Appointment Type: Open Diagnostic Tests Pending * Urine Culture 01/17/24 Future Scheduled Tests Laboratory* Lipid Panel 07/27/[address] [facility] evaluation + Plan note Future Appointments Appointment Date:01/25/2024 01:45:00 PM Scheduled Provider:Janes Rivera MD [facility] Appointment Type:Cardiology Follow Up (FT) Appointment Date:03/12/2024 11:00:00 AM Scheduled Provider: Location:[facility] Appointment Type:Urology CALL PAT FT Appointment Date:03/17/2024 09:15:00 AM Scheduled Provider: Location:[facility] Appointment Type:Urology FT Appointment Date:07/01/2024 08:30:00 AM Scheduled Provider:Francisco Mckeon MD Location:[facility] Appointment Type:FM Open Future Scheduled Tests Laboratory* Lipid Panel 07/27/23 [facility] evaluation + Plan note Future Appointments Appointment Date:03/12/2024 11:00:00 AM Scheduled Provider: Location:[facility] Appointment Type:Urology CALL PAT FT Appointment Date:03/17/2024 09:15:00 AM Scheduled Provider: Location:[facility] Appointment Type:Urology FT Appointment Date:07/01/2024 08:30:00 AM Scheduled Provider:Francisco Mckeon MD Location:[facility] Appointment Type: Open Future Scheduled Tests Laboratory* Lipid Panel 07/27/[address] [facility] evaluation + Plan note Future Appointments Appointment Date:07/01/2024 08:30:00 AM Scheduled Provider:Francisco Mckeon MD Location:[facility] Appointment Type: Open Future Scheduled Tests Laboratory* Lipid Panel 07/27/[address] [facility] evaluation noteNo assessment information available [facility] Work Phone: Evalutaldn note* Diagnosis Arteriosclerotic heart disease (ASHD)- Primary Coronary atherosclerosis of unspecified type of vessel, iqugmiut or graft History of myocardial infarction Hyperlipidemia, unspecified hyperlipidemia type Essential hypertension, benign S/P CABG x 3 Postsurgical aortocoronary bypass status Paroxysmal atrial fibrillation ([facility]/HCC) Atrial fibrillation Other specified diabetes mellitus with other specified complication, with long- term current use of insulin ([facility]) documented in this encounter [facility] Work Phone: Evaluation note* Diagnosis 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 type 1 diabetes mellitus ([facility]/HCC)- Primary Bilateral posterior capsular opacification Unspecified after-cataract Diplopia Dry eyes Unspecified tear film insufficiency [facility] Narrative No data available for this section [facility] No data available for this section [facility] No data available for this section [facility] HospitalReason for referral (narrative)* Consultation (Routine) - Authorized Specialty Diagnoses / Procedures Referred By Katie sousa Referred To Contact Cardiology Diagnoses Arteriosclerotic heart disease (ASHD) Procedures Follow Up In Cardiology Jason Alex DO [facility] [address], [address] [address] Jason Alex DO [facility], [address] [address] Referral ID Status Reason Start Date Expiration Date V isits Requested Visits Authorized [id number] Authorized 01/23/2023 01/23/2024 1 1 [facility] Work Phone: Summary Purpose Family History Unknown Family Member Name Dates Details No pertinent family history: Mother, Father, Sister, Brother(V49.89, Z78.9) Status:Active Unknown Family Member Name Dates Details No pertinent family history: Mother, Father, Sister, Brother(V49.89, Z78.9) Status:Active Unknown Family Member Name Dates Details No pertinent family history: Mother, Father, Sister, Brother(V49.89, Z78.9) Status:Active Unknown Family Member Name Dates Details No pertinent family history: Mother, Father, Sister, Brother(V49.89, Z78.9) Status:Active Unknown Family Member Name Dates Details No pertinent family history: Mother, Father, Sister, Brother(V49.89, Z78.9) Status:Active Relationship Condition Age at Onset Recorded Date/T alexandr father Pneumonia Unknown Unknown family member Unknown mother Parkinson's disease Unknown Advance Directives Advance Directive Response Recorded Date/ Time Advance Directives No December 19, 2016 9:25am Chief Complaint * RAFI ROPER is being seen for follow-up of a hospitalization for CABG. * Patient is a 66-year-old female who returns following recent non-ST elevation NE, and three-vessel urgent bypass surgery. All this occurred on February 15. Patient had postoperative atrial fibrillation, she is currently in sinus rhythm no longer on amiodarone therapy. * She still has significant left lower extremity weakness secondary to vein graft harvesting. She does have symptomatic vertigo with certain forms of exercise (treadmill). She is not performing cardiacrehab as of yet. * She has had no angina or heart failure. * We reviewed all of her anatomy, her hospitalization, current medications, symptoms. * Recommendations: Decrease Bumex to Sunday along with potassium and magnesium dosing; initiate low-grade lisinopril 2.5 mg daily to for completeness of of guideline directed medical therapies, initiate cardiac rehab, will follow-up in 6 months * RAFI ROPER is being seen for a 9 month follow-up of. * 66-year-old female returns for follow-up she is doing well she has no angina, heart failure or recurrent hospitalizations. She underwent multivessel CABG in January 2021, for ACS event and failed PCI of the circumflex. She has done well since that time she remains on appropriate guideline directedmedical therapies. * She is diabetic, normotensive and remains on high-dose statin therapy * Recommendations, continue current therapies obtain appropriate laboratories follow-up in 1 year Chief Complaint and Reason for Visit Chief Complaint Screening Additional Source Comments INFORMATION SOURCE (unrecogn ized section and content) DATE CREATED AUTHOR 09/02/2020 [facility] DATE CREATED AUTHOR AUTHOR'S ORGANIZ ATION 04/15/2021 [facility] DATE CREATED AUTHOR AUTHOR'S ORGANIZ ATION 01/18/2022 [facility] DATE CREATED AUTHOR AUTHOR'S ORGANIZ ATION 01/18/2022 [facility] DATE CREATED AUTHOR AUTHOR'S ORGANIZ ATION 05/20/[address] [facility] DATE CREATED AUTHOR AUTHOR'S ORGANIZ ATION 03/21/2023 [facility] DATE CREATED AUTHOR AUTHOR'S ORGANIZ ATION 01/05/2024 [facility] DATE CREATED AUTHOR AUTHOR'S ORGANIZ ATION 01/19/2024 [facility] DATE CREATED AUTHOR AUTHOR'S ORGANIZ ATION 01/21/2024 [facility] DATE CREATED AUTHOR AUTHOR'S ORGANIZ ATION 01/21/2024 [facility] DATE CREATED AUTHOR AUTHOR'S ORGANIZ ATION 01/29/2024 [facility] DATE CREATED AUTHOR AUTHOR'S ORGANIZ ATION 03/19/2024 [facility] DATE CREATED AUTHOR AUTHOR'S ORGANIZ ATION 03/27/2024 [facility] DATE CREATED AUTHOR AUTHOR'S ORGANIZ ATION 07/02/2024 [facility] DATE CREATED AUTHOR AUTHOR'S ORGANIZ ATION 07/27/2024 [facility] Reason for Visit (unrecogniz ed section and content) Reason Comments Follow-up 1y Reason Comments Diabetic Eye Exam Care Team (unrecognized sect ion and content) Team Status: Inactive Member Role Status Dates Lamont Butler MD Primary Care Provider, Referring Pro vider Active Referral Self Attending Provider Active Team Status: Active Member Role Status Dates Lamont Butler MD Primary Care Provider Active Team Status: Active Member Role Status Dates Francisco Mckeon MD Primary Care Provider Active Team Status: Inactive Member Role Status Dates Referral Self Attending Provider Active Francisco Mckeon MD Primary Care Provider Active Community Development Technician Relationship Specialty Start Date End Date Francisco Mckeon MD [address] [place] [id number] PCP - General Family Medicine 01/23/23 Team Status: Inactive Member Role Status Dates Francisco Mckeon MD Primary Care Provider Active Start: January 17, 2024 End: January 17, 2024 Referral Self Attending Provider Active Start: O ctober 2023 End: January 17, 2024 Community Development Technician Relationship Specialty Start Date End Date Francisco Mckeon MD PCP - General Family Medicine 12/11/22 Community Development Technician Relationship Specialty Start Date End Date Francisco Mckeon MD PCP - General Family Medicine 12/11/22 Goals (unrecognized section and content) Goals may be documented in a n alternate section FOR RECORDS PERTAINING TO PATIENTS WHO ARE OR HAVE BEEN ENROLLED IN A CHEMICAL DEPENDENCY/SUBSTANCEABUSE PROGRAM, SOME INFORMATION MAY BE OMITTED. This clinical summary was aggregated from multiple sources. Caution should be exercised in using it in the provision of clinical care. This summary normalizes information from multiple sources, and as a consequence, information in this document may materially change the coding, format and clinical context of patient data. In addition, data may be omitted in some cases. CLINICAL DECISIONS SHOULD BE BASED ON THE PRIMARY CLINICAL RECORDS. [facility] [employer] [facility]. provides no warranty or guarantee of the accuracy or completeness of information in this document.
== END 2024-08-13 07:59 | disposition home or self-care (01) ==
LOC: CARD 07:58
PROVIDERS: PCP Family Medicine; Visit Provider Internal Medicine Interventional Cardiology
DX: I25.10 Atherosclerotic heart disease of native coronary artery without angina pectoris (principal); Z95.1 Presence of aortocoronary bypass graft; R60.0 Localized edema
CPT/HCPCS: 93306

== ENCOUNTER 2024-10-18 06:31 | Outpatient (OUT) | payer MEDICARE, SELFPAY ==
--- OUTSIDE RECORDS SUMMARY | 2024-10-18 06:35 | XMS_ITS | CCD ---
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 Jason Alex Attending Unavailable Isai, Dr. Gomez Attending Unavailable Dr. Jason Alex Referring Unavailable Lamont Butler Primary Care Unavailable [...] NEWELL Admitting Unavailable LIBORIO NEWELL Consulting Unavailable MORENITA ., DR LAMONT Lima Primary Care Unavailable [...] BUTLER ., DR LAMONT Lima Attending Unavailable BUTLRE ., DR LAMONT Lima Primary Care Unavailable [...] Care Unavailable Francisco Mckeon. Primary Care Physician [phone] MD Francisco Mckeon Primary Care Provider [phone] Self, Referral Attending Provider Unavailable MALIK KAYLA E Attending Unavailable MALIK KAYLA Janie Admitting Unavailable Francisco Mckeon. Referring Unavailable Francisco Mckeon. Admitting Unavailable Francisco Mckeon. Attending Unavailable MALIK KAYLA E Admitting Unavailable MALIK, KAYLA E Attending Unavailable Self, Referral Attending Unavailable Self, Referral Admitting Unavailable Francisco Mckeon Primary Care Unavailable Francisco Mckeon. Attending Unavailable Carolyn Correa Attending Unavailable Francisco Mckeno. Attending Unavailable Carolyn Correa Attending Unavailable Francisco Mckeon. Attending Unavailable MD Janes Rivera Attending Unavailable Francisco Mckeon Referring Unavailable NONE, XXXX Referring Unavailable MD Janes Rivera Attending Unavailable MD Janes Rivera Admitting Unavailable MD Janes Rivera Attending Unavailable Francisco Mckeon Attending Unavailable Francisco Mckeon Admitting Unavailable Hajdari, Astrit H Attending Unavailable Francisco Mckeon Attending Unavailable Francisco Mckeon Attending Unavailable Francisco Mckeon Attending Unavailable Francisco Mckeon Attending Unavailable Francisco Mckeon Attending Unavailable Lue, Maris MCristal Referring Unavailable Lue, Maris MCristal Attending Unavailable Lue, Maris MCristal Admitting Unavailable Lue, Maris MCristal Admitting Unavailable Lue, Maris MCristal Referring Unavailable Lue, Maris MCristal Attending Unavailable Lue, Maris MCristal Admitting Unavailable Lue, Maris MCristal Attending Unavailable Lue, Maris MCristal Referring Unavailable Francisco Mckeon Attending Unavailable Francisco Mckeon Referring Unavailable MALIK, KAYLA E Attending Unavailable Francisco Mckeon Admitting Unavailable Francisco Mckeon Attending Unavailable MD Janes Rivera Admitting Unavailable MD Janes Rivera Attending Unavailable Raman Garcia Attending Unavailable Francisco Mckeon MD Primary Care Provider BITA FIORE Attending Unavailable EUGENE SUAZO Attending Unavailable NEGAR DE LOS SANTOS Primary Care Physician ANKIT DE LOS SANTOS Admitting UnavailANKIT Fischer Attending UnavailANKIT Fischer A Attending Unavailemilia DE LOS SANTOS CNP NEGAR A Attending Unavailabl Maris Dela Cruz Attending Unavailable ANKIT DE LOS SANTOS A Attending Unavailabl ANKIT Harmon A Admitting Unavailabl e Allergies Allergy Classification Reported Allergen(s) Allergy Type Date of Onset Reaction(s) Facility (20 sources) Latex; Translations: [latex] Drug allergy 2 [facility] (4 sources) Tetracyclines; Translations: [Tetracyclines] Propensity to adverse reactions 1 [facility] (2 sources) Amoxicillin / Clavulanate Drug Allergy 3 [facility] Medications Current Medications Medication Drug Class(es) [...] 0, Prophylaxis Start Date: 07/22/19 Status: Ordered Repeat number: 1 atorvastatin 80 mg oral tablet (20 sources) HMG-CoA Reductase Inhibitor Start: 10-07-2024 take 1 tablet by mouth once daily atorvastatin 80 mg Tab See Instructions, TAKE 1 TABLET BY MOUTH EVERY DAY, # 90 tab(s), Refills(s) 1, Pharmacy: [facility]/pharmacy #[id number], 158, cm, 09/30/24 10:38:00 EDT, Height/Length Dosing, 66.9, kg, 09/30/24 10:38:00 EDT, Weight Dosing Start Date: 10/07/24 Status: Ordered Quantity: 90.0 Unit: tab(s) Repeat number: 2 Start: 12-08-2022 atorvastatin ( Lipitor) 80 MG tablet 12/08/2022 Active Start: 02-23-2021 End: 03-04-2021 take 1 tablet by mouth once daily atorvastatin 80 mg Tab 80 mg = 1 tab(s), Oral, Daily, # 90 tab(s), Refills(s) 3, [id number] 154.5, cm, 09/11/22 10:05:00 EDT, Height/Length Dosing, 63, kg, 09/11/22 10:05:00 EDT, Weight Dosing Start Date: 09/11/22 Status: Ordered chlorhexidine gluconate 1.2 mg/ml mouthwash (6 sources) Start: 02-23-2021 End: 03-04-2021 Chlorhexidine Gluconate Active 15 ML MUCOUS MEM Three times daily 500 March 04, 2021 1:00am cholestyramine resin 4000 mg powder for oral suspension (8 sources) Bile Acid Sequestrant Start: 08-13-2024 Questran 4 g/9 g ora l powder = 1 packet(s), Oral, Daily, # 60 packet(s), Refills(s) 6, [id number], 154, cm, 07/01/24 8:31:00 EDT, Height/Length Dosing, 63.7, kg, 07/01/24 8:31:00 EDT, Weight Dosing Start Date: 08/13/24 Status: Ordered Quantity: 60.0 Unit: packet(s) Repeat number: 7 Start: 01-25-2024 cholestyramine Refills(s) 0 Start Date: 01/25/24 Status: Ordered Start: 01-24-2024 Questran 4 g/9 g oral powder = 1 packet(s), Oral, BID, # 60 EA, Refills(s) 0, [id number], 164, cm, 01/24/24 8:54:00 EST, Height/Length Dosing, 66, kg, 01/24/24 8:54:00 EST, Weight Dosing Start Date: 01/24/24 Status: Ordered dapagliflozin 10 mg oral tablet (7 sources) Sodium-Glucose Cotransporter 2 Inhibitor Start: 01-01-2024 take 1 tablet by mouth once daily dapagliflozin 10 mg oral tablet 10 mg = 1 tab(s), Oral, Daily, # 90 tab(s), Refills(s) 1, Pharmacy: [facility]/pharmacy #[id number], 154, cm, 01/01/24 9:31:00 EDT, Height/Length Dosing, 66.8, kg, 01/01/24 9:31:00 EDT, Weight Dosing Start Date: 01/01/24 Status: Ordered Start: 07-27-2023 take 1 tablet by fran th once daily dapagliflozin 10 mg oral tablet 10 mg = 1 tab(s), Oral, Daily, # 30 tab(s), Refills(s) 6, Pharmacy: [facility]/pharmacy #[id number], 154, cm, 07/27/23 10:05:00 EDT, Height/Length Dosing, 63.3, kg, 07/27/23 10:05:00 EDT, Weight Dosing Start Date: 07/27/23 Status: Ordered docusate sodium 100 mg oral capsule (14 sources) Start: 03-04-2021 take 1 capsule by mo [facility] twice daily as needed for constipation [...] 2021 1:39pm take 1 tablet by fran th twice daily docusate sodium (Colace) 100 mg tablet Take 1 tablet (100 mg) by mouth 2 times a day. 0 Active estradiol 0.1 mg/ml vaginal cream (2 sources) Estrogen Start: 03-17-2024 Estrace 0.1 mg /g Cream See Instructions, 42.5 gm, Refill(s) 2, Apply pea sized amount to urethra/vagina 3x a week for 1 month, then 2x a week afterwards, [facility]/pharmacy #[id number], 154, cm, 01/25/24 13:53:00 EST, Height/Length Dosing, 66.4, kg, 01/25/24 13:53:00 EST, Weight Dosing Start Date: 03/17/24 Status: Ordered ezetimibe 10 mg oral tablet (11 sources) Dietary Cholesterol Absorption Inhibitor Start: 06-20-2024 End: 06-15-2025 take 1 tablet by mouth once daily Zetia 10 mg Tab 10 mg = 1 tab(s), Oral, Daily, X 90 day(s), # 90 tab(s), Refills(s) 3, Pharmacy: [facility]/pharmacy #[id number], 154, cm, 01/25/24 13:53:00 EST, Height/Length Dosing, 66.4, kg, 01/25/24 13:53:00 EST, Weight Dosing Start Date: 06/20/24 Stop Date: 06/15/25 Status: Ordered Quantity: 90.0 Unit: tab(s) Repeat number: 4 Start: 12-05-2023 take 1 tablet by fran th once daily Zetia 10 mg Tab 10 mg = 1 tab(s), Oral, Daily, # 90 tab(s), Refills(s) 1, Pharmacy: [facility]/pharmacy #[id number], 154, cm, 09/10/23 11:04:00 EDT, Height/Length Dosing, 64, kg, 09/10/23 11:04:00 EDT, Weight Dosing Start Date: 12/05/23 Status: Ordered Start: 07-27-2023 take 1 tablet by fran once daily Zetia 10 mg Tab 10 mg = 1 tab(s), Oral, Daily, # 30 tab(s), Refills(s) 6, Pharmacy: [facility]/pharmacy #[id number], 154, cm, 07/27/23 10:05:00 EDT, Height/Length [...] Once, # 1 tab(s), Refills(s) 0, Pharmacy: [facility]/pharmacy #[id number], 154.4, cm, 07/16/23 8:58:00 EDT, Height/Length Dosing, 62.8, kg, 07/16/23 8:58:00 EDT, Weight Dosing Start Date: 07/26/23 Status: Ordered fluticasone propionate 0.05 mg/actuat metered dose nasal spray (19 sources) Corticosteroid Start: 09-17-2023 fluticasone Na mark 0.05 mg/inh [place] See Instructions, 48 mL, Refill(s) 1, USE 2 SPRAYS IN EACH NOSTRIL ONCE A DAY, [id number], 154, cm, 09/10/23 11:04:00 EDT, Height/Length Dosing, 64, kg, 09/10/23 11:04:00 EDT, Weight Dosing Start Date: 09/17/23 Status: Ordered Start: 09-10-2023 Flonase 0.05 m g/inh [place] 2 spray(s), Nasal, Daily, 16 gram, Refill(s) 0, each nostril, [id number], 154, cm, 09/10/23 11:04:00 EDT, Height/Length Dosing, 64, kg, 09/10/23 11:04:00 EDT, Weight Dosing Start Date: 09/10/23 Status: Ordered Quantity: 16.0 Unit: g Repeat number: 1 Start: 09-10-2023 Flonase 0.05 m g/inh [place] 2 spray(s), Nasal, Daily, 16 gram, Refill(s) 0, each nostril, [facility]/pharmacy #[id number], 154, cm, 09/10/23 11:04:00 EDT, Height/Length Dosing, 64, kg, 09/10/23 11:04:00 EDT, Weight Dosing Start Date: 09/10/23 Status: Ordered Freestyle [place] 3+ Flash Glucose Monitoring 14 Day System (Sensor) (1 source) Start: 10-07-2024 Freestyle Libr e 3+ Flash Glucose Monitoring 14 Day System (Sensor) Freestyle [place] 3+ Flash Glucose Monitoring 14 Day System (Sensor), See Instructions, 6 EA, 1, Freestyle [place] 3 Flash Glucose Monitoring (Sensor). Replace sensor every 15 days., [facility]/pharmacy #[id number], Supply, 158, cm, 09/30/24 10:38:00 EDT, Height/Length Dosing, 66.9, kg, 09/30/24 10:38:00 EDT, Weight Dosing Start Date: 10/07/24 Status: Ordered Quantity: 6.0 Unit: EA Repeat number: 2 Indications: Type 2 diabetes mellitus without complications; Freestyle [place] Flash Glucose Monitoring 14 Day System (Sensor) (11 sources) Start: 07-03-2023 Freestyle Libr e Flash Glucose Monitoring 14 Day System (Sensor) Freestyle [place] Flash Glucose Monitoring 14 Day System (Sensor), See Instructions, 6 EA, 11, Freestyle [place] 2 Flash Glucose Monitoring 14 Day System (Sensor). Replace sensor every 14 days., [facility]/pharmacy #[id number], Supply, 154.4, cm, 07/03/23 10:36:00 EDT, Height/Length Dosing, 63.1, kg, 07/03/23 10:36:00 EDT, Weight Dosing Start Date: 07/03/23 Status: Ordered gabapentin 300 mg oral capsule (20 sources) Anti-epilepti c Agent Start: 05-27-2024 take 1 capsule by mouth once daily at bedtime gabapentin 300 mg Cap 300 mg = 1 cap(s), Oral, Once a day (at bedtime), # 90 cap(s), Refills(s) 0, Pharmacy: [id number], 154, cm, 01/25/24 13:53:00 EST, Height/Length Dosing, 66.4, kg, 01/25/24 13:53:00 EST, Weight Dosing Start Date: 05/27/24 Status: Ordered Quantity: 90.0 Unit: cap(s) Repeat number: 1 Indications: Other specified health status; Body mass index [BMI] 26.0-26.9, adult; Type 2 diabetes mellitus with diabetic neuropathy, unspecified; Start: 08-29-2023 take 1 capsule by [facility] once daily at bedtime gabapentin 300 mg Cap 300 mg = 1 cap(s), Oral, Once a day (at bedtime), # 90 cap(s), Refills(s) 3, Pharmacy: [facility]/pharmacy #[id number], 154, cm, 07/29/23 12:14:00 EDT, Height/Length Dosing, 63.5, kg, 07/29/23 12:14:00 EDT, Weight Dosing Start Date: 08/29/23 Status: Ordered Start: 05-22-2023 take 1 capsule by mo uth once daily at bedtime gabapentin 300 mg Cap 300 mg = 1 cap(s), Oral, Once a day (at bedtime), # 90 cap(s), Refills(s) 3, Pharmacy: [facility]/pharmacy #[id number], 154.4, cm, 04/23/23 9:26:00 EST, Height/Length [...] 2021 1:00am hydroCHLOROthiazide 12.5 mg oral capsule (4 sources) Thiazide Diuretic Start: 02-18-2024 take 1 capsule by mouth once daily hydrochlorothiazide 12.5 mg Cap 12.5 mg = 1 cap(s), Oral, Daily, # 90 cap(s), Refills(s) 3, [id number], 154, cm, 01/25/24 13:53:00 EST, Height/Length Dosing, 66.4, kg, 01/25/24 13:53:00 EST, Weight Dosing Start Date: 02/18/24 Status: Ordered Quantity: 90.0 Unit: cap(s) Repeat number: 4 Start: 01-25-2024 take 1 capsule by la ut once daily hydrochlorothiazide 12.5 mg Cap 12.5 mg = 1 cap(s), Oral, Daily, # 30 cap(s), Refills(s) 6, [id number], 154, cm, 01/25/24 13:53:00 EST, Height/Length [...] March 04, 2021 1:00am 3 ml insulin aspart, human 100 unt/ml pen injector (15 sources) Insulin Analog Start: 08-28-2024 Start: 07-17-2022 NovoLOG FlexPe n 100 units/mL injectable solution See Instructions, check [...] as directed per insulin instructions. 0 Active 3 ml insulin detemir 100 unt/ml pen [...] ml insulin glargine 100 unt/ml pen injector (16 sources) Insulin Analog Start: 05-19-2024 inject 15 [IU] by subcutaneous injection in the morning, then inject 17 [IU] by subcutaneous injection in the evening Start: 03-04-2024 inject 15 [IU] by puri bcutaneous injection in the morning, then inject 17 [IU] by subcutaneous injection in the evening Start: 10-02-2023 Lantus Solosta r Pen 100 units/mL subcutaneous solution See Instructions, 15 u subq in the morning and 17 units sub q in the evening, # 15 mL, Refills(s) 3, Pharmacy: [facility]/pharmacy #[id number], 154, cm, 09/10/23 11:04:00 EDT, Height/Length [...] evening, # 15 mL, Refills(s) 3, [id number], 154.4, cm, 04/23/23 9:26:00 EST, Height/Length [...] Ordered levothyroxine sodium 0.05 mg oral tablet (15 sources) l-Thyroxine Start: 05-27-2024 take 1 tablet by mouth once daily levothyroxine 50 mcg (0.05 mg) Tab See Instructions, TAKE 1 TABLET BY MOUTH EVERY DAY, # 90 tab(s), Refills(s) 3, Pharmacy: [id number], 154, cm, 01/25/24 13:53:00 EST, Height/Length Dosing, 66.4, kg, 01/25/24 13:53:00 EST, Weight Dosing Start Date: 05/27/24 Status: Ordered Quantity: 90.0 Unit: tab(s) Repeat number: 1 Start: 03-20-2023 take 1 tablet by fran th once daily levothyroxine 50 mcg (0.05 mg) Tab 50 mcg = 1 tab(s), Oral, Daily, # 90 tab(s), Refills(s) 3, [id number], 154.4, cm, 03/01/23 15:22:00 EST, Height/Length [...] (20 sources) Angiotensin 2 Receptor Temitope Start: 09-22-2024 take 1 tablet by mouth twice daily losartan 50 mg Tab 50 mg = 1 tab(s), Oral, BID, # 180 tab(s), Refills(s) 0, Pharmacy: [facility]/pharmacy #[id number], 154, cm, 09/08/24 10:33:00 EDT, Height/Length Dosing, 67.8, kg, 09/08/24 10:33:00 EDT, Weight Dosing Start Date: 09/22/24 Status: Ordered Quantity: 180.0 Unit: tab(s) Repeat number: 1 Start: 01-01-2024 take 1 tablet by fran twice daily losartan 50 mg Tab 50 mg = 1 tab(s), Oral, BID, # 180 tab(s), Refills(s) 1, Pharmacy: [facility]/pharmacy #[id number], 154, cm, 01/01/24 9:31:00 EDT, Height/Length Dosing, 66.8, kg, 01/01/24 9:31:00 EDT, Weight Dosing Start Date: 01/01/24 Status: Ordered Start: 08-29-2023 take 1 tablet by fran twice daily losartan 50 mg Tab 50 mg = 1 tab(s), Oral, BID, # 60 tab(s), Refills(s) 6, Pharmacy: [facility]/pharmacy #[id number], 154, cm, 07/29/23 12:14:00 EDT, Height/Length Dosing, 63.5, kg, 07/29/23 12:14:00 EDT, Weight Dosing Start Date: 08/29/23 Status: Ordered Start: 07-27-2023 take 1 tablet by fran th twice daily losartan 50 mg Tab 50 mg = 1 tab(s), Oral, BID, # 60 tab(s), Refills(s) 6, [id number], 154, cm, 07/27/23 10:05:00 EDT, Height/Length Dosing, 63.3, kg, 07/27/23 10:05:00 EDT, Weight Dosing Start Date: 07/27/23 Status: Ordered Start: 07-03-2023 take 1 tablet by fran once daily losartan 100 mg Tab See Instructions, TAKE 1 TABLET BY MOUTH EVERY DAY, # 90 tab(s), Refills(s) 0, [id number], 154.4, cm, 07/03/23 10:36:00 EDT, Height/Length [...] (Reorder) Start: 04-19-2021 take 0.5 tablet by out once daily Losartan Potassium 25 MG Oral Tablet TAKE 0.5 TABLET Daily Quantity: 45 Refills: 3 Ordered: 19-Apr-2021 Jason Alex DO Start : 19-Apr-2021 Active restart Start: 07-22-2019 losartan 25 mg Tab 12.5 mg, Oral, Daily, Refills(s) 0, High blood pressure Start Date: 07/22/19 Status: Ordered magnesium oxide 400 mg oral tablet (20 sources) Start: 12-04-2023 take 1 tablet by mouth once daily magnesium oxide 400 mg Tab See Instructions, TAKE 1 TABLET BY MOUTH EVERY DAY, # 90 tab(s), Refills(s) 3, Pharmacy: [facility] [id number], 154, cm, 09/10/23 11:04:00 EDT, Height/Length Dosing, 64, kg, 09/10/23 11:04:00 EDT, Weight Dosing Start Date: 12/04/23 Status: Ordered Quantity: 90.0 Unit: tab(s) Repeat number: 1 Start: 09-11-2022 take 1 tablet by fran once daily magnesium oxide 400 mg Tab 400 mg = 1 tab(s), Oral, Daily, # 90 tab(s), Refills(s) 4, [id number] 154, cm, 09/10/23 11:04:00 EDT, Height/Length [...] 2021 1:39pm take 1 capsule by mo [facility] at bedtime Melatonin 10 MG Oral Capsule TAKE 1 CAPSULE Bedtime Quantity: 0 Refills: 0 Ordered: 19-Apr-2021 DO Active metFORMIN hydrochloride 500 mg oral tablet (20 sources) Biguanide Start: 05-27-2024 take 1 tablet by mouth once daily metformin 500 mg ER Tab 500 mg = 1 tab(s), Oral, Daily, # 90 tab(s), Refills(s) 3, [id number], 154, cm, 01/25/24 13:53:00 EST, Height/Length Dosing, 66.4, kg, 01/25/24 13:53:00 EST, Weight Dosing Start Date: 05/27/24 Status: Ordered Quantity: 90.0 Unit: tab(s) Repeat number: 4 Start: 06-29-2023 take 1 tablet by fran th once daily metformin 500 mg ER Tab 500 mg = 1 tab(s), Oral, Daily, # 90 tab(s), Refills(s) 3, Pharmacy: [facility] #[id number], 154.4, cm, 04/23/23 9:26:00 EST, Height/Length Dosing, 63.5, kg, 04/23/23 9:26:00 EST, Weight Dosing Start Date: 06/29/23 Status: Ordered Start: 07-22-2019 End: 02-23-2021 take 500 mg by mouth once daily Metformin Discontinued 500 MG PO Daily February 10, 2021 1:00am February 23, 2021 3:38pm 24 hr metoprolol succinate 100 mg extended release oral tablet (20 sources) beta-Adrenergic Temitope Start: 07-04-2024 take 1 tablet by mouth once daily metoprolol succinate 100 mg ER Tab 100 mg = 1 tab(s), Oral, Daily, # 90 tab(s), Refills(s) 3, Pharmacy: [facility]/pharm[facility] #[id number], 154, cm, 07/01/24 8:31:00 EDT, Height/Length Dosing, 63.7, kg, 07/01/24 8:31:00 EDT, Weight Dosing Start Date: 07/04/24 Status: Ordered Quantity: 90.0 Unit: tab(s) Repeat number: 4 Start: 07-27-2023 take 1 tablet by fran th once daily metoprolol 100 mg ER Tab 100 mg = 1 tab(s), Oral, Daily, # 30 tab(s), Refills(s) 6, Pharmacy: [facility] #[id number], 154, cm, 07/27/23 10:05:00 EDT, Height/Length Dosing, 63.3, kg, 07/27/23 10:05:00 EDT, Weight Dosing Start Date: 07/27/23 Status: Ordered Start: 10-04-2022 take 1 tablet by fran th every twenty-four hours in the morning metoprolol succinate XL (Toprol-XL) 50 MG 24 hr tablet Take 50 mg by mouth in the morning. 10/04/2022 Active Start: 01-17-2022 take 1 tablet by fran th once daily metoprolol 50 mg ER Tab 50 mg = 1 tab(s), Oral, Daily, # 90 tab(s), Refills(s) 3, Pharmacy: [facility] #[id number], 154.5, cm, 09/11/22 10:05:00 EDT, Height/Length [...] ointment (9 sources) Antiseptic Start: 02-23-2021 End: 03-04-2021 Povidone-Iodine Active 1 APPLIC TOPICAL Daily 30 March 04, 2021 1:00am Start: 02-23-2021 End: 03-04-2021 Povidone-Iodine Discontinued 1 APPLIC TOPICAL PRN 0 February 23, 2021 1:00am March 04, 2021 1:39pm reader (1 source) Start: 04-22-2024 reader reader, See Instructions, 1 EA, 1, free style 2 readerfree style 2 reader, [id number], Supply, 154, cm, 01/25/24 13:53:00 EST, Height/Length Dosing, 66.4, kg, 01/25/24 13:53:00 EST, Weight Dosing Start Date: 04/22/24 Status: Ordered Quantity: 1.0 Unit: EA Repeat number: 2 traMADol hydrochloride 50 mg oral tablet (9 sources) Opioid Agonist Start: 02-23-2021 End: 03-04-2021 take 50 mg by mouth every four hours Tramadol Active 50 MG PO Q4H 30 March 04, 2021 1:00am Start: 02-23-2021 [...] DAY Quantity: 45 Refills: 3 Ordered: 19-Apr-2021 Isai DO, Jason Start : 19-Apr-2021 Active Start: 03-04-2021 take 1 mg by mouth once daily Bumetanide Active 1 MG PO DAILY@0800 30 30 March 04, 2021 1:00am hydroCHLOROthiazide 12.5 mg / losartan potassium 100 mg oral tablet (3 sources) Thiazide Diuretic, Angiotensin 2 Receptor Temitope Start: 02-10-2021 End: 02-23-2021 take 1 tablet by mouth once daily Losartan-Hydrochlorothiazide Discontinued 1 TAB PO Daily February 10, 2021 1:00am February 23, 2021 3:38pm lactulose 667 mg/ml oral solution (3 sources) [...] tablet (3 sources) Antiemetic Start: 02-10-2021 End: 12-17-2021 take 25 mg by mouth once daily Meclizine Discontinued 25 MG PO Daily February 10, 2021 1:00am March 04, 2021 1:39pm nitroglycerin 0.4 mg sublingual tablet (3 sources) Nitrate Vasodilator Start: 02-23-2021 End: 03-04-2021 Nitroglycerin Discontinued 0 .4 MG SUBLINGUAL Q5M 0 February 23, 2021 1:00am March 04, 2021 1:39pm omeprazole 40 mg delayed release oral capsule (1 source) Proton Pump Inhibitor Start: 09-30-2024 omeprazole 40 mg Cap-DR 90 E A, 0 Refill(s), TAKE 1 CAPSULE BY MOUTH EVERY DAY, Refills(s) 0 Start Date: 09/30/24 Status: Ordered Repeat number: 1 ondansetron 4 mg oral tablet (3 sources) [...] 3 12-11-2022 Episodic Calculus of urinary tract (9 sources) Ureteric stone; Translations: [Calculus of ureter] [...] Episodic Conditions associated with dizziness or vertigo (17 sources) Benign paroxysmal vertigo, unspecified ear; Translations: [Benign paroxysmal positional vertigo] Onset: 2 Episodic Congestive heart failure; nonhypertensive (13 sources) Congestive heart failure 07-17-2022 Chronic Coronary atherosclerosis and other heart disease (20 sources) Coronary arteriosclerosis; Translations: [Coronary atherosclerosis of unspecified type of vessel, eek or graft] Onset: 3 02-13-2021 Chronic Coronary [...] Comment on above: Linked per outpatien t CDI policy. Disorders of lipid metabolism (20 sources) Hyperlipidemia; Translations: [Other and unspecified hyperlipidemia] Onset: 3 02-12-2021 Chronic Esophageal disorders (13 sources) Gastroesophageal reflux disease without esophagitis 02-13-2023 Chronic Essential hypertension (20 sources) Benign essential hypertension; Translations: [Benign essential hypertension] Onset: 2 02-10-2021 Chronic Fluid and electrolyte disorders (1 source) Hypokalemia; Translations: [HYPOKALEMIA] Onset: 3 Episodic Genitourinary symptoms and ill-defined conditions (11 sources) Microscopic hematuria; Translations: [Other microscopic hematuria] Onset: 4 Episodic Headache; including migraine (3 sources) Headache; including migraine; Translations: [HEADACHE UNSPECIFIED] Onset: 2 Hypertension with complications and secondary hypertension (13 sources) Hypertensive heart disease with congestive heart failure 01-24-2023 Chronic Comment on above: Linked per outpaiten t CDI policy. Inflammatory diseases of female pelvic organs (3 sources) Vaginitis; Translations: [Acute vaginitis] 02-24-2021 Episodic Menopausal disorders (3 sources) Atrophic vaginitis; Translations: [Postmenopausal atrophic vaginitis] Onset: 4 Chronic Osteoarthritis (1 source) Unspecified osteoarthritis, unspecified site; Translations: [UNSPECIFIED OSTEOARTHRITIS UNS SITE] Onset: 2 Chronic Other aftercare (3 sources) USP (current) use of insulin; Translations: [SEN[facility] LIVING CURRENT USE OF INSULIN] Onset: 3 Episodic Other aftercare (1 source) USP (current) use of aspirin; Translations: [SEN[facility] LIVING CURRENT USE OF ASPIRIN] Onset: 3 Episodic Other aftercare (1 source) USP (current) use of oral hypoglycemic drugs; Translations: [S[facility]IV[facility] USE ORAL HYPOGLYCEMIC DX] Onset: 3 Episodic Other and unspecified benign neoplasm (3 sources) Neoplasm of meninges; Translations: [Benign neoplasm of meninges, unspecified] 02-12-2021 Chronic Other and unspecified benign neoplasm (13 sources) 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 Other diseases of bladder and urethra (1 source) Disorder of bladder; Translations: [Bladder disorder, unspecified] Onset: 5 Chronic Other diseases of bladder and urethra (1 source) Lesion of bladder 10-08-2024 Chronic Other diseases of bladder and urethra (3 sources) Urethral caruncle; Translations: [Urethral caruncle] Onset: 4 Episodic Other diseases of kidney and ureters (1 source) Acquired renal cyst without neoplastic change; Translations: [Cyst of kidney, acquired] Onset: 5 Episodic Other diseases of kidney and ureters (1 source) Cyst of kidney 10-08-2024 Episodic Other eye disorders (3 sources) Dry eyes; Translations: [Dry eye syndrome of bilateral lacrimal glands] Onset: 3 12-11-2022 Episodic Other gastrointestinal disorders (3 sources) Constipation; Translations: [Constipation, unspecified] 02-12-2021 Episodic Other gastrointestinal disorders (7 sources) Urgent desire for stool; Translations: [Fecal urgency] Onset: 4 Episodic Other gastrointestinal disorders (7 sources) Altered bowel function; Translations: [Change in bowel habit] Onset: 4 Episodic Other gastrointestinal disorders (6 sources) H/O: colitis 01-24-2024 Episodic Other infections; including parasitic (1 source) H/O: infectious disease; Translations: [Personal history of other infectious and parasitic diseases] Onset: 4 Episodic Other liver diseases (13 sources) Elevated total bilirubin 07-19-2022 Episodic Other lower respiratory disease (3 sources) Slow respiration; Translations: [Other abnormalities of breathing] 02-16-2021 Episodic Other nervous system disorders (3 sources) Postoperative pain ; Translations: [Other acute postprocedural pain] 03-04-2021 Episodic Other nutritional; endocrine; and metabolic disorders (1 source) Hypomagnesemia; Translations: [HYPOMAGNESEMIA] Onset: 2 Chronic Other nutritional; endocrine; and metabolic disorders (2 sources) Body mass index 25-29 - overweight 07-01-2024 Episodic Other nutritional; endocrine; and metabolic disorders (2 sources) Overweight in adulthood with body mass index of 25 or more but less than 30 07-01-2024 Episodic Other screening for suspected conditions (not mental disorders or infectious disease) (1 source) Encounter for screening mammogram for malignant neoplasm of breast; Translations: [Encounter for screening mammogram for malignant neoplasm of breast] Onset: 4 Episodic Other upper respiratory infections (10 sources) Acute upper respiratory infection 07-16-2023 Episodic Otitis media and related conditions (11 sources) Dysfunction of eustachian tube 09-10-2023 Episodic Peripheral and visceral atherosclerosis (13 sources) Aortoiliac atherosclerosis 01-25-2023 Chronic Comment on [...] Translations: [HYPOTHYROIDISM UNSPECIFIED] Onset: 3 Chronic Unclassified (13 sources) Injury of left foot 09-11-2022 Unclassified (13 sources) Long-term current use of insulin 01-24-2023 Comment on above: Added per outpatient CDI policy. 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] Onset: 12-13-2021 Episodic Skin and subcutaneous tissue infections (1 source) Cellulitis of face; Translations: [CELLULITIS OF FACE] Onset: 12-13-2021 Episodic Unclassified (5 sources) Never smoked tobacco; Translations: [Never a smoker] Unclassified (1 source) Onset: 01-23-2023 01-23-2023 Results Test Name Value Interpretation Reference Range Facility Ambulatory Visit Summaryon 0 10-08-2024 Ambulatory Visit Summary Ambulatory Visit Summary RAFI ROPER :1955 Visit Date:10/08/2024 Ambulatory Visit Instructions Your Diagnosis Microscopic hematuria Vaginal atrophy Urethral caruncle Lesion of bladder Renal cyst Your Care Team Attending Physician - Maris Scott MD Primary Care Physician - NEGAR DE LOS SANTOS CNP This Is Your Medications List Contact prescribing physician if questions or concerns Misc Prescription ([email or web address] [place] 3+ Flash Glucose Monitoring 14 Day System (Sensor)) Misc Prescription (Misc DME Prescription) Misc Prescription (Pen Needle 31G x 5mm) Misc Prescription (reader) aspirin (aspirin 81 mg Oral EC Tab) atorvastatin (atorvastatin 80 mg Tab) cholestyramine (Questran 4 g/9 g oral powder) ezetimibe (Zetia 10 mg Tab) fluticasone nasal (Flonase 0.05 mg/inh [place]) gabapentin (gabapentin 300 mg Cap) hydrochlorothiazide (hydrochlorothiazide 12.5 mg Cap) insulin aspart (NovoLOG FlexPen 100 units/mL injectable solution) insulin glargine (Lantus Solostar Pen 100 units/mL subcutaneous solution) levothyroxine (levothyroxine 50 mcg (0.05 mg) Tab) losartan (losartan 50 mg Tab) magnesium oxide (magnesium oxide 400 mg Tab) metformin (metformin 500 mg ER Tab) metoprolol (metoprolol succinate 100 mg ER Tab) omeprazole (omeprazole 40 mg Cap-DR) [Image Removed: STOP]Stop taking these medications estradiol topical (Estrace 0.1 mg/g Cream) Procedures Performed Open heart surgery (2020), Cataract extraction and insertion of intraocular lens (07/23/2019), Cholecystectomy, Colonoscopy, Tooth extraction, Tubal ligation. Discharge Vitals Heart Rate (Peripheral) 60 Blood Pressure 158/83 Height 164 cm Height 65 in Weight 67.3 kg Weight 148.371 lb BMI 25.02 What to do next You Need to Schedule the Following Appointments Follow Up with Tyler SHANNON, Maris M., URL, URO When: Where: Medications What How Much When Why Instructions Unchanged aspirin (aspirin 81 mg Oral EC Tab) 1 Tablets By Mouth Every day Contact prescribing physician if questions or concerns Unchanged atorvastatin (atorvastatin 80 mg Tab) See instructions TAKE 1 TABLET BY MOUTH EVERY DAY Contact prescribing physician if questions or concerns Unchanged cholestyramine (Questran 4 g/ 9 g oral powder) 1 Packets By Mouth Every day Contact prescribing physician if questions or concerns Unchanged ezetimibe (Zetia 10 mg Tab) 1 Tablets By Mouth Every day Duration: 90 Days Contact prescribing physician if questions or concerns Unchanged fluticasone nasal (Flonase 0.05 mg/ inh [place]) 2 Sprays Nasal Inhalation Every day each nostril Contact prescribing physician if questions or concerns Unchanged gabapentin (gabapentin 300 mg Cap) 1 Capsules By Mouth Once a day (at bedtime) BMI 26.0-26.9,adult Non-smoker Diabetic neuropathy Contact prescribing physician if questions or concerns Unchanged hydrochlorothiazide (hydrochlorothiazide 12.5 mg Cap) 1 Capsules By Mouth Every day Contact prescribing physician if questions or concerns Unchanged insulin aspart (NovoLOG FlexPen 100 units/ mL injectable solution) See instructions INJECT 15 UNITS SUBCUTANEOUSLY 3 TIMES A DAY BEFORE MEALS, INSTR: PER SSI Contact prescribing physician if questions or concerns Unchanged insulin glargine (Lantus Solostar Pen 100 units/ mL subcutaneous solution) See instructions INJECT 15 UNITS SUBCUTANEOUSLY IN THE MORNING AND 17 UNITS IN THE EVENING Contact prescribing physician if questions or concerns [...] if questions or concerns Unchanged metoprolol (metoprolol succinate 100 mg ER Tab) 1 Tablets By Mouth Every day Contact prescribing physician if questions or concerns Unchanged Misc Prescription (Freestyle Lokesh 3+ Flash Glucose Monitoring 14 Day System (Sensor)) See instructions Diabetes Freestyle Lokesh 3 Flash Glucose Monitoring (Sensor). Replace sensor every 15 days. Contact prescribing physician if questions or concerns Unchanged Misc Prescription (Misc DME Prescription) See instructions BD ultra fine mini pen needles 31G X 3/ 16 Use 6 times a day to inject insulin Dx E10.8 5 boxes or pt needs 180 a month x3 months with 3 refills. Contact prescribing physician if questions or concerns Unchanged Misc Prescription (Pen Needle 31G x 5mm) See instructions Pen Needle 31G x 6mm. Pt needs 5 boxes of 3 months supply. Contact prescribing physician if questions or concerns Unchang (more content not included)... Normal [facility] Urology Office/Clinic Noteon 10-08-2024 Urology Office/Clinic Note Urology Office/Clinic Note Chief Complaint fu HPI Staff 69 year old female 6 month follow up previous dx: microscopic hematuria and ureteral stone Patient denies any dysuria or gross hematuria. Denies any flank or abdomen pain. no symptoms History of Present Illness Tests reviewed: UA, cysto, CTU, cytology I have reviewed the previous health record information and history for this patient from Dr. Scott. I have reviewed and verified the staff HPI to be accurate for this encounter. Review of Systems PHQ Score Initial Depression Screen Score: 0 SCORE ROS - Provider Constitutional: denies weight loss, denies hot flashes. Eyes: denies eye problems. Gastrointestinal: denies nausea, denies vomiting. Cardiovascular: denies chest pain or angina. Integumentary: no dryness Musculoskeletal: denies musculoskeletal symptoms. ENMT: denies otolaryngeal symptoms. Respiratory: no shortness of breath. Heme/Lymph: denies easy bleeding tendency, denies easy bruising tendency. Psychiatric: no confusion, no anxiety. Genitourinary: See HPI. Physical Exam Vitals & Measurements HR: 60(Peripheral) BP: 158/83 HT: 65 in HT: 164 cm WT: 148.371 lb WT: 67.3 kg BMI: 25.02 General Appearance: alert, no distress, well nourished, well developed adult. Assessment/Plan 69-year-old female with history of chronic microscopic hematuria here for 6 mo f/u to cysto. 1. Microscopic hematuria (R31.29: Other microscopic hematuria) Chronic. Cysto years ago by Dr. Mejia for microscopic hematuria. Negative. Neg hematuria workup by Dr Scott 02/2024 -CTU, cytology and cysto. UA shows moderate blood and small leuks. Asx. Denies gross hematuria. Since pt has had two neg hematuria workups, would not repeat unless she sees gross hematuria (she has never seen gross hematuria). Follow up PRN. Pt understands and agrees with plan. -Pt knows to notify the office if they were to experiences gross hematuria or clots 2. Vaginal atrophy (N95.2: Postmenopausal atrophic vaginitis) Cysto 03/17/24 - Severe vaginal atrophy. Small urethral caruncle. Started Estrace cream. Stopped using estrogen cream d/t SE of visual migraines. Educated on the purpose of the cream (including for #3), can try OTC non-hormonal cream instead. Pt prefers to cont sx monitoring. -Cont sx monitoring 3. Urethral caruncle (N36.2: Urethral caruncle) See #2. 4. Lesion of bladder (N32.9: Bladder disorder, unspecified) Cysto 03/17/24 - Mild inflammatory polyps at bladder neck. Could consider again biopsying polyps at bladder neck but given otherwise neg workup, not necessary. Pt not interested in bx. 5. Renal cyst (N28.1: Cyst of kidney, acquired) CTU 03/18/24 [facility] [place] - 1.7 cm cortical cyst upper pole left kidney. -If simple, does not require surveillance. Follow-up With When Contact Information Tyler SHANNON, Maris Tony, URL, URO Additional Instructions: PRN Patient Education Hematuria, Adult I, Fannie Guerra, personally scribed for Dr. Scott on 10/08/2024 12:18:28. . Portions of this record may have been created with voice recognition artificial intelligence software, specifically [employer], [employer] and or [employer]. Substitutions may have occurred due to the inherent limitations of voice recognition and artificial intelligence software. Documentation recorded by the scribe, Fannie Guerra, accurately reflects the services(s) I performed and decisions made by me. Authenticated by Dr. Scott on 10/08/2024 12:22:58. Problem List/Past Medical History Ongoing Aorto-iliac atherosclerosis [...] disease with CHF Injury of left foot Lesion of bladder Long-term insulin use Microscopic hematuria Nonsmoker Overweight (BMI 25.0-29.9) Renal cyst Total bilirubin, elevated Type 2 diabetes mellitus with hyperlipidemia Ureteral stone Urethral caruncle Vaginal atrophy Historical No qualifying data Procedure/Surgical History Open heart surgery (2020), Cataract extraction and insertion of intraocular lens (07/23/2019), Cholecystectomy, Colonoscopy, Tooth extraction, Tubal ligation. Medications aspirin 81 mg Oral EC Tab, 81 mg= 1 tab(s), Oral, Daily atorvastatin 80 mg Tab, See Instructions, 1 refills Flonase 0.05 mg/inh [place], 2 spray(s), Nasal, Daily Freestyle L[place]h 3+ Flash Glucose Monitoring 14 Day System (Sensor), See Instructions, 1 refills gabapentin 300 mg Cap, 300 mg= 1 cap(s), Oral, Once a day (at bedtime) hydr (more content not included)... Normal [facility] Comment on above: Result Comment: Elec tronically Signed By: Maris Scott MD\.br\Date and Time Signed: 10/08/24 12:23 EDT\.br\Electronically Co-Signed By: Fannie Guerra\.br\Date and Time Co-Signed: 10/08/24 12:18 EDT Ambulatory Visit Summaryon 0 09-30-2024 Ambulatory Visit Summary Ambulatory Visit Summary RAFI ROPER :1955 Visit Date:09/30/2024 Ambulatory Visit Instructions Your Diagnosis Type 2 diabetes mellitus with hyperlipidemia Diabetic neuropathy Hyperlipidemia, unspecified Nonsmoker BMI 26.0-26.9,adult Overweight (BMI 25.0-29.9) Your Care Team Attending Physician - NEGAR DE LOS SANTOS CNP Primary Care Physician - NEGAR DE LOS SANTOS CNP This Is Your Medications List Misc Prescription [...] mg Tab) fluticasone nasal (Flonase 0.05 mg/inh [place]) gabapentin (gabapentin 300 mg Cap) hydrochlorothiazide (hydrochlorothiazide [...] Tubal ligation. Discharge Vitals Temperature (Oral) 36.8 ???C Heart Rate (Peripheral) 70 Respiratory Rate 18 Blood Pressure 136/84 Height 158 cm Height 62 in Weight 66.9 kg Weight 147.489 lb BMI 26.8 What to do next Scheduled Follow-Up Appointments Sunday 10:45 AM EDT With: Tyler SHANNON, Maris Tony Where: [facility] [address] [address]- You Need to Schedule the Following Appointments Follow Up with FILIBERTO PHAM, SREEDHAR CANDELARIO When: Within 6 months Comments: Diabetes Where: [address] [place] [id number] Business (1) Medications What How Much When Why Instructions Unchanged aspirin (aspirin 81 mg Oral EC Tab) 1 Tablets By Mouth Every day Unchanged atorvastatin (atorvastatin 80 mg Tab) See instructions TAKE 1 TABLET BY MOUTH EVERY DAY Unchanged cholestyramine (Questran 4 g/ 9 g oral powder) 1 Packets By Mouth Every day Unchanged estradiol topical (Estrace 0.1 mg/ g Cream) See instructions Urethral caruncle Vaginal atrophy Apply pea sized amount to urethra/ vagina 3x a week for 1 month, then 2x a week afterwards Unchanged ezetimibe (Zetia 10 mg Tab) 1 Tablets By Mouth Every day Duration: 90 Days Unchanged fluticasone nasal (Flonase 0.05 mg/ inh [place]) 2 Sprays Nasal Inhalation Every day each nostril Unchanged gabapentin (gabapentin 300 mg Cap) 1 Capsules By Mouth Once a day (at bedtime) BMI 26.0-26.9,adult Non-smoker Diabetic neuropathy Unchanged hydrochlorothiazide (hydrochlorothiazide 12.5 mg Cap) 1 Capsules By Mouth Every day Unchanged insulin aspart (NovoLOG FlexPen 100 units/ mL injectable solution) See instructions INJECT 15 UNITS SUBCUTANEOUSLY 3 TIMES A DAY BEFORE MEALS, INSTR: PER SSI Unchanged insulin glargine (Lantus Solostar Pen [...] a day to inject insulin Dx E10.8 5 boxes or pt needs 180 a month x3 months with 3 refills. Unchanged Misc Prescription (Pen Needle 31G x [...] vertigo) CHF (congestive heart failure) Colon cancer scree (more content not included)... Normal [facility] CBC w/ Auto Diffon 07-15-202 5 Basophil Absolute 0.0 E9/L Normal 0.0-0.2 [facility] Comment on above: Performed By: #### 2 [id number] #### [facility] [address] [place] [address] Basophils/100 WBC (Bld) 0.7 % Normal 0.0-2.0 [facility] Comment on above: Performed By: #### 2 [id number] #### [facility] [address] [place] [address] Eos Absolute 0.4 E9/L Normal 0.0-0.5 [facility] Comment on above: Performed By: #### 2 [id number] #### [facility] [address] [place] [address] Eosinophils/100 WBC (Bld) 7.6 % Normal 0.0-8.0 [facility] Comment on above: Performed By: #### 2 [id number] #### [facility] [address] [place] [address] Erythrocyte distribution width (RBC) [Ratio] 13.3 % Normal 10.9-14.2 [facility] Comment on above: Performed By: #### 2 [id number] #### [facility] [address] [place] [address] Hematocrit (Bld) [Volume fraction] 40.4 % Normal 34.0-46.0 [facility] Comment on above: Performed By: #### 2 [id number] #### [facility] [address] [place] [address] Hemoglobin (Bld) [Mass/Vol] 13.9 g/dL Normal 12.0-16.0 [facility] Comment on above: Performed By: #### 2 [id number] #### [facility] [address] [place] [address] Lymph Absolute 1.1 E9/L Normal 1.0-4.0 [facility] Comment on above: Performed By: #### 2 [id number] #### [facility] [address] [place] [address] Lymphocytes/100 WBC (Bld) 22.5 % Normal 14.0-50.0 [facility] Comment on above: Performed By: #### 2 [id number] #### [facility] [address] [place] [address] MCH (RBC) [Entitic mass] 30.8 pg Normal 27.0-34.0 [facility] Comment on above: Performed By: #### 2 [id number] #### [facility] [address] [place] [address] MCHC (RBC) [Mass/Vol] 34.5 g/dL Normal 31.4-36.0 [facility] Comment on above: Performed By: #### 2 [id number] #### [facility] [address] [place] [address] MCV (RBC) [Entitic vol] 89.2 fL Normal 80.0-100.0 [facility] Comment on above: Performed By: #### 2 [id number] #### [facility] [address] [place] [address] [place] Absolute 0.4 E9/L Normal 0.2-1.0 [facility] Comment on above: Performed By: #### 2 [id number] #### [facility] [address] [place] [address] Monocytes/100 WBC (Bld) 9.0 % Normal 4.0-14.0 [facility] Comment on above: Performed By: #### 2 [id number] #### [facility] [address] [place] [address] Neutro Absolute 2.9 E9/L Normal 2.0-7.5 [facility] Comment on above: Performed By: #### 2 [id number] #### [facility] [address] [place] [address] Neutro Auto 60.2 % Normal 36.0-75.0 [facility] Comment on above: Performed By: #### 2 [id number] #### [facility] [address] [place] [address] Platelet 159.0 E9/L Normal 150.0-500.0 [facility] Comment on above: Performed By: #### 2 [id number] #### [facility] [address] [place] [address] Platelet mean volume (Bld) [Entitic vol] 8.7 fL Normal 6.4-10.8 [facility] Comment on above: Performed By: #### 2 [id number] #### [facility] [address] [place] [address] RBC 4.5 E12/L Normal 4.3-5.9 [facility] Comment on above: Performed By: #### 2 [id number] #### [facility] [address] [place] [address] WBC 4.8 E9/L Normal 4.0-11.0 [facility] Comment on above: Performed By: #### 2 [id number] #### [facility] [address] [place] [address] CMPon 09-30-2024 Albumin [Mass/Vol] 4.4 g/dL Normal 3.3-5.0 [facility] Comment on above: Performed By: #### 2 [id number] #### [facility] [address] [place] [address] Albumin/Globulin [Mass ratio] 2.4 {ratio} High 1.1-2.2 [facility] Comment on above: Performed By: #### 2 [id number] #### [facility] [address] [place] [address] Alk Phos 56 Int._Unit/L Normal 21-98 [facility] Comment on above: Performed By: #### 2 [id number] #### [facility] [address] [place] [address] ALT 33 Int._Unit/L Normal 6-46 [facility] Comment on above: Performed By: #### 2 [id number] #### [facility] [address] [place] [address] Anion gap [Moles/Vol] 7 mmol/L Normal 6-16 [facility] Comment on above: Performed By: #### 2 [id number] #### [facility] [address] [place] [address] AST 27 Int._Unit/L Normal 5-43 [facility] Comment on above: Performed By: #### 2 [id number] #### [facility] [address] [place] [address] Bili Total 3.1 mg/dL High 0.0-1.1 [facility] Comment on above: Performed By: #### 2 [id number] #### [facility] [address] [place] [address] BUN/Creat Ratio 32 No Units High 10-20 [facility] Comment on above: Performed By: #### 2 [id number] #### [facility] [address] [place] [address] Calcium [Mass/Vol] 9.6 mg/dL Normal 8.9-11.1 [facility] Comment on above: Performed By: #### 2 [id number] #### [facility] [address] [place] [address] Chloride [Moles/Vol] 102 mmol/L Normal 101-111 [facility] Comment on above: Performed By: #### 2 [id number] #### [facility] [address] [place] [address] CO2 [Moles/Vol] 33 mmol/L High 21-31 [facility] Comment on above: Performed By: #### 2 [id number] #### [facility] [address] [place] [address] Creatinine [Mass/Vol] 0.9 mg/dL Normal 0.5-1.3 [facility] Comment on above: Performed By: #### 2 [id number] #### [facility] [address] [place] [address] Globulin (S) [Mass/Vol] 1.8 g/dL Normal 1.4-4.0 [facility] Comment on above: Performed By: #### 2 [id number] #### [facility] [address] [place] [address] Glucose [Mass/Vol] 153 mg/dL Normal 55-199 [facility] Comment on above: Performed By: #### 2 [id number] #### [facility] [address] [place] [address] Potassium [Moles/Vol] 3.8 mmol/L Normal 3.5-5.3 [facility] Comment on above: Performed By: #### 2 [id number] #### [facility] [address] [place] [address] Protein [Mass/Vol] 6.2 g/dL Normal 6.0-7.8 [facility] Comment on above: Performed By: #### 2 [id number] #### [facility] [address] [place] [address] Sodium [Moles/Vol] 138 mmol/L Normal 135-145 [facility] Comment on above: Performed By: #### 2 [id number] #### [facility] [address] [place] [address] Urea nitrogen [Mass/Vol] 29 mg/dL High 5-21 [facility] Comment on above: Performed By: #### 2 [id number] #### [facility] [address] [place] [address] Family Medicine Office/Clini c Noteon 09-30-2024 Family Medicine Office/Clinic Note Family Medicine Office/Clinic Note Chief Complaint Medication Refills HPI Staff Please speak with patient about scheduling an AWV. Former Dr Mckeon pt. Presenting today for medication refills. Patient is here for follow up on Diabetes. How often are you checking your blood sugars? _ daily What are your average readings? _ normal range Paresthesias, Ulcerations or sores? no Lisinopril, aspirin, statin therapy? Yes Foot Exam: Eye Exam: 08/12/24 Last A1c: Hgb A1C %: 7 % High (07/03/23 11:12:00) Hgb A1c POC: 6.3 % (01/01/24 10:01:00) Referral to cardio @ time of [facility] with Dr Mckeon. Consult note from 07/21/24 in chart History of Present Illness 69 year old patient presents today in f/u for known diabetes. She reports she has a CGM that seems to be working well for her. She denies increased thirst or urination. She reports she does not need a refill of her medication but she is due to have her HgbA1C checked at this visit. Review of Systems PHQ Score Initial Depression Screen Score: 0 SCORE Constitutional: no fever, no chills, no sweats, no weakness Skin: no Jaundice, no rash, no lesions, nopetechiae ENMT: no ear pain, no sore throat, no congestion, no hoarseness Respiratory: no shortness of breath, no cough, no orthopnea, no wheezing Cardiovascular: no chest pain, no palpitations, no edema Gastrointestinal: no nausea, no vomiting, no diarrhea, no GI bleeding Genitourinary: no dysuria, no hematuria, no discharge, no pain Musculoskeletal: no back pain, no trauma Neurologic: no headache, no dizziness, no numbness, no weakness Psychiatric: no sleeping problems, no irritability, no mood swings/depression. Heme/Lymph: no bleeding tendency, no bruising tendency, no petechiae, no swollen nodes Allergy/Immunologic: no seasonal allergies, no food allergies, no recurrent infections, no impaired immunity Additional ROS info: Except as noted in the above Review of Systems and in the History of Present Illness all other systems have been reviewed and are negative or noncontributory. Physical Exam Vitals & Measurements T: 36.8 ???C(Oral) HR: 70(Peripheral) RR: 18 BP: 136/84 SpO2: 96% HT: 158 cm HT: 62 in WT: 147.489 lb WT: 66.9 kg BMI: 26.8 General: alert, no acute distress Cardiovascular: regular rate and rhythm, normal peripheral perfusion Respiratory: Lungs CTA, respirations non labored Extremities: no deformity, no trauma Neurological: oriented x 4, LOC appropriate for age speech normal Assessment/Plan 1. Type 2 diabetes mellitus with hyperlipidemia (E11.69: Type 2 diabetes mellitus with other specified complication) Encourage low carb diet and daily exercise Awaiting HgbA1C results continue insulin glargine, aspart, metFormin 500 mg ER- no refills a this visit Continue to use the CGM f/u in 6 months Ordered: CBC w/ Auto Diff Comprehensive Metabolic Panel HgbA1c Lab Specimen Collect [id number] Lipid Panel 2. Hyperlipidemia, unspecified (E78.5: Hyperlipidemia, unspecified) Stable Controlled Continue atorvastatin 80 mg one tablet po daily Encourage low fat diet and daily exercise f/u in 6 months Ordered: CBC w/ Auto Diff Comprehensive Metabolic Panel HgbA1c Lab Specimen Collect [id number] Lipid Panel 3. Nonsmoker (Z78.9: Other specified health status) Encouraged to continue as a non-smoker 4. BMI 26.0-26.9,adult (Z68.26: Body mass index [BMI] 26.0-26.9, adult) BMI 26.8 Ordered: CBC w/ Auto Diff Comprehensive Metabolic Panel HgbA1c Lipid Panel 5. Overweight (BMI 25.0-29.9) (E66.3: Overweight) The standard range for ages 18 and older is >=18.5 and < 25 kg/m2. Your BMI today was above this range, this falls in the overweight to obese category and there are medical benefits to weight loss. We can offer counselling, referral, and/or medical support in addressing this problem. Your BMI and weight management will be followed at subsequent visits. Ordered: Body Mass Index (BMI) documented 3008F CBC w/ Auto Diff Comprehensive Metabolic Panel Current tobacco non-user 1036F Dilated retinal eye exam WITHOUT retinopathy documented and reviewed Functional status assessed 1170F HBA1C <7.0 Most Recent Level 3044F HgbA1c Lipid Panel Medication list documented in medical record 1159F Most recent LDL-C < 100 mg/Dl 3048F Review of all meds by a prescribing practitioner or clinical pharmacist documented in EHR 1160F Orders: omeprazole, 40 mg = 1 cap(s), Oral, Daily, # 90 cap(s), Refills(s) 0, Pharmacy: [facility]/pharmacy #[id number], 154, cm, 09/08/24 10:33:00 EDT, Height/Length Dosing, 67.8, kg, 09/08/24 10:33:00 EDT, Weight Dosing Follow-up With When Contact Information NEGAR DE LOS SANTOS CNP, FAM Within 6 months [address] [place] [address] Business (1) Additional Instructions: Diabetes Patient Education Diabetes Mellitus and Sick Day Management Problem List/Past Medical History Ongoing Aorto-iliac atherosclerosis (more content not included)... Normal [facility] Comment on above: Result Comment: Elec tronically Signed By: NEGAR DE LOS SANTOS CNP\Date and Time Signed: 09/30/24 12:41 EDT [id number] 09-30-2024 HbA1c (Bld) [Mass fraction] 7.4 % High <=5.9 [facility] Comment on above: Performed By: #### 7 [id number] #### [facility] [address] [place] [address] Lipid Panelon 09-30-2024 Cholesterol [Mass/Vol] 94 mg/dL Low 120-200 [facility] Comment on above: Performed By: #### 2 [id number] #### [facility] [address] [place] [address] Cholesterol in HDL [Mass/Vol] 48 mg/dL Invalid Interpretation Code [facility] Comment on above: Result Comment: '>= 60 LOW RISK' '<= 40 HIGH RISK' Performed By: #### 2 [id number] #### [facility] [address] [place] [address] Cholesterol in LDL [Mass/Vol] 33 mg/dL Normal <=129 [facility] Comment on above: Performed By: #### 2 [id number] #### [facility] [address] [place] [address] Cholesterol in VLDL [Mass/Vol] 41 mg/dL High 7-40 [facility] Comment on above: Performed By: #### 2 [id number] #### [facility] [address] [place] [address] Triglyceride [Mass/Vol] 205 mg/dL High <=149 [facility] Comment on above: Performed By: #### 2 [id number] #### [facility] [address] [place] [address] eGFRon 09-30-2024 eGFR 68 mL/min/1.73 m2 Normal >=59 [facility] Comment on above: Performed By: #### 1 [id number] #### [facility] [address] [place] [address] Ambulatory Visit Summaryon 0 09-08-2024 Ambulatory Visit Summary Ambulatory Visit Summary RAFI ROPER :1955 Visit Date:09/08/2024 Ambulatory Visit Instructions Your Diagnosis BMI 28.0-28.9,adult Overweight (BMI 25.0-29.9) Nonsmoker Your Care Team Attending Physician - NEGAR DE LOS SANTOS CNP Primary Care Physician - Francisco Mckeon MD [...] mg Tab) fluticasone nasal (Flonase 0.05 mg/inh [place]) gabapentin (gabapentin 300 mg Cap) hydrochlorothiazide (hydrochlorothiazide 12.5 mg Cap) insulin aspart (NovoLOG FlexPen 100 units/mL injectable solution) insulin glargine (Lantus Solostar Pen 100 units/mL subcutaneous solution) levothyroxine (levothyroxine 50 mcg (0.05 mg) Tab) losartan (losartan 50 mg Tab) magnesium oxide (magnesium oxide 400 mg Tab) metformin (metformin 500 mg ER Tab) metoprolol (metoprolol succinate 100 mg ER Tab) omeprazole (omeprazole 40 mg Cap-DR) tirzepatide (Mounjaro 2.5 mg/0.5 mL subcutaneous solution) Procedures Performed Open heart surgery (2020), Cataract extraction and insertion of intraocular lens (07/23/2019), Cholecystectomy, Colonoscopy, Tooth extraction, Tubal ligation. Discharge Vitals Temperature (Temporal Artery) 36.0 ???C Heart Rate (Peripheral) 74 Respiratory Rate 18 Blood Pressure 128/82 Height 154.0 cm Height 61 in Weight 67.8 kg Weight 149.473 lb BMI 28.59 What to do next Scheduled Follow-Up Appointments Sunday 8:40 AM EDT With: Mervin SHANNON, Francisco Terrell Where: [facility] [address] [address]- Sunday 10:45 AM EDT With: Tyler SHANNON, Maris Tony Where: [facility] [address] [place] [address]- Medications What How Much When Why Instructions Unchanged aspirin (aspirin 81 mg Oral EC Tab) 1 Tablets By Mouth Every day Unchanged atorvastatin (atorvastatin 80 mg Tab) See instructions TAKE 1 TABLET BY MOUTH EVERY DAY Unchanged cholestyramine (Questran 4 g/ 9 g oral powder) 1 Packets By Mouth Every day Unchanged estradiol topical (Estrace 0.1 mg/ g Cream) See instructions Urethral caruncle Vaginal atrophy Apply pea sized amount to urethra/ vagina 3x a week for 1 month, then 2x a week afterwards Unchanged ezetimibe (Zetia 10 mg Tab) 1 Tablets By Mouth Every day Duration: 90 Days Unchanged fluticasone nasal (Flonase 0.05 mg/ inh [place]) 2 Sprays Nasal Inhalation Every day each nostril Unchanged gabapentin (gabapentin 300 mg Cap) 1 Capsules By Mouth Once a day (at bedtime) BMI 26.0-26.9,adult Non-smoker Diabetic neuropathy Unchanged hydrochlorothiazide (hydrochlorothiazide 12.5 mg Cap) 1 Capsules By Mouth Every day Unchanged insulin aspart (NovoLOG FlexPen 100 units/ mL injectable solution) See instructions INJECT 15 UNITS SUBCUTANEOUSLY 3 TIMES A DAY BEFORE MEALS, INSTR: PER SSI Unchanged insulin glargine (Lantus Solostar Pen [...] 1 Tablets By Mouth Every day Unchanged [facility] Prescription (Freestyle [place] 3+ Flash Glucose Monitoring 14 Day System (Sensor)) See instructions Diabetes Freestyle [place] 3 Flash Glucose Monitoring (Sensor). Replace sensor every 15 days. Unchanged Misc Prescription (Misc DME Prescription) See instructions BD ultra fine mini pen needles 31G X 3/ 16 Use 6 times a day to inject insulin Dx E10.8 5 boxes or pt needs 180 a month x3 months with 3 refills. Unchanged Misc Prescription (Pen Needle 31G x 5mm) See instructions Pen Needle 31G x 6mm. Pt needs 5 boxes of 3 months supply. Unchanged Misc Prescription (reader) See instructions free style 2 readerfree style 2 reader Unchanged omeprazole (omeprazole 40 mg Cap-DR) 1 Capsules By Mouth Every day Unchanged tirzepatide (Mounjaro 2.5 mg/ 0.5 mL subcutaneous solution) 2.5 Milligram Subcutaneous Every week Allergies Latex ([place]) Problems Ongoing - Any problem that you are currently receiving treatment for. Aorto-iliac atherosclerosis Benign neoplasm of cerebral (more content not included)... Normal [facility] Family Medicine Office/Clini c Noteon 09-08-2024 Family Medicine Office/Clinic Note Family Medicine Office/Clinic Note Chief Complaint The patient presents with concerns regarding a recent tick bite. HPI Staff Rafi is a 69 year old female presenting with tick bite on back of left shoulder, red spot Onset: Noticed it last night 09/07/24 Location: back of left shoulder Associated Symptoms: Red spot Has put antibiotic ointment on it Took the tick to the health department. It was a dog tick and does not carry lyme disease. Health department sent her here I have reviewed and verified the staff HPI to be accurate for this encounter. History of Present Illness 69-year-old female presenting today with her with a dog tick bite. The tick was identified as a dog tick, which was removed using tweezers after being discovered during a shower last PM. The patient was informed that dog ticks do not carry Lyme disease but can carry [place] spotted fever. She denies any fever, rash, enlarged lump nodes, RUQ pain, or edema of the hands and feet. The patient has a history of diabetes mellitus and is currently using a prescription antibiotic cream on the tick bite site. She monitors her blood glucose levels using a continuous glucose monitor, noting fluctuations postprandially. Review of Systems PHQ Score Initial Depression Screen Score: 0 SCORE - Integumentary: Reports tick bite, denies significant erythema or swelling - Endocrine: Reports diabetes mellitus, monitors blood glucose levels with continuous glucose monitor Physical Exam Vitals & Measurements T: 36.0 ???C(Temporal Artery) HR: 74(Peripheral) RR: 18 BP: 128/82 SpO2: 95% HT: 61 in HT: 154.0 cm WT: 149.473 lb WT: 67.8 kg BMI: 28.59 General: alert, no acute distress Skin: Examination of tick bite site, mild erythema, no edema, no rash Cardiovascular: regular rate and rhythm, normal peripheral perfusion Respiratory: Lungs CTA, respirations non labored Neurological: oriented x 4, LOC appropriate for [facility] normal Assessment/Plan 1. Tick bite (W57.XXXA: Bitten or stung by nonvenomous insect and other nonvenomous arthropods, initial encounter) - Monitor for symptoms of [place] spotted fever, such as fever or rash. - Continue application of prescription antibiotic cream to the bite site. - Continue monitoring blood glucose levels with continuous glucose monitor. - Maintain current diabetes management regimen. - Advise to seek medical attention if symptoms develop. 2. BMI 28.0-28.9,adult (Z68.28: Body mass index [BMI] 28.0-28.9, adult) The standard range for ages 18 and older is >=18.5 and < 25 kg/m2. Your BMI today was above this range, this falls in the overweight to obese category and there are medical benefits to weight loss. We can offer counselling, referral, and/or medical support in addressing this problem. Your BMI and weight management will be followed at subsequent visits. 3. Nonsmoker (Z78.9: Other specified health status) - Encouraged to continue as a non-smoker Follow-up No qualifying data available Patient Education Insect Bite, Adult Problem List/Past Medical History Ongoing Aorto-iliac atherosclerosis Benign neoplasm of cerebral meninges BMI 28.0-28.9,adult Bowel habit changes BPPV (benign paroxysmal positional vertigo) CHF (congestive heart failure) Colon cancer screening COVID Diabetic neuropathy DM type 2 causing vascular disease Eustachian tube dysfunction Fecal urgency GERD without esophagitis History of cholecystectomy History of Clostridium difficile colitis HTN (hypertension) Hyperlipidemia, unspecified Hypertensive heart disease with CHF Injury of left foot Long-term insulin use Microscopic hematuria Nonsmoker Total bilirubin, elevated Type 2 diabetes mellitus with hyperlipidemia Ureteral stone Historical No qualifying data Procedure/Surgical History Open heart surgery (2020), Cataract extraction and insertion of intraocular lens (07/23/2019), Cholecystectomy, Colonoscopy, Tooth extraction, Tubal ligation. Medications aspirin 81 mg Oral EC Tab, 81 mg= 1 tab(s), Oral, Daily atorvastatin 80 mg Tab, See Instructions Estrace 0.1 mg/g Cream, See Instructions, 2 refills Flonase 0.05 mg/inh [place], 2 spray(s), Nasal, Daily Freestyle Lokesh 3+ Flash Glucose Monitoring 14 Day System (Sensor), See Instructions gabapentin 300 mg Cap, 300 mg= 1 cap(s), Oral, Once a day (at bedtime) hydrochlorothiazide 12.5 mg Cap, 12.5 mg= 1 cap(s), Oral, Daily, 3 refills Lantus Solostar Pen 100 units/mL subcutaneous solution, See Instructions, 1 refills levothyroxine 50 mcg (0.05 mg) Tab, See Instructions losartan 50 mg Tab, 50 mg= 1 tab(s), Oral, BID, 1 refills magnesium oxide 400 mg Tab, See Instructions metformin 500 mg ER Tab, 500 mg= 1 tab(s), Oral, Daily, 3 refills metoprolol succinate 100 mg ER Tab, 100 mg= 1 tab(s), Oral, Daily, 3 refills Misc DME Prescription, See Instructions, 3 refills Mounjaro 2.5 mg/0.5 mL subcutaneous solution, 2.5 mg, SubCutaneous, (more content not included)... Normal [facility] Comment on above: Result Comment: Elec tronically Signed By: NEGAR DE LOS SANTOS CNP\.br\Date and Time Signed: 09/08/24 12:59 EDT 36on 08-21-2024 36 From: Eugene Suazo MD Sent: 08/16/2024 4:01 PM EDT To: Dilia Oconnor MA Echo was normal. Advised patient of Dr. Suazo's findings. Patient verbalized understanding Normal [facility] Orders Onlyon 08-14-2024 Orders Only [id number] Rafi Roper 1955 F Date Provider Department [place] 08/14/2024 [id number], HISTORICAL CARD [facility] Family History Problem Relation Age of Onset Pneumonia Father Lung cancer Brother Family Status - Relation Status Age at Mother Father Brother [facility] 36on 07-25-2024 36 MD Lupis Caicedo MA Her cholesterol is low. I want her to reduce atorvastatin from 80 mg daily to 20 mg daily. She should get a follow-up lipid profile in 3 months. Spoke to patient and advised her of Dr. Suazo's message. [facility]. Order for repeat lipid panel ion 3 months mailed to patient 07/25/2024 [facility] 36 MD Lupis Caicedo MA Her cholesterol is low. I want her to reduce atorvastatin from 80 mg daily to 20 mg daily. She should get a follow-up lipid profile in 3 months. [facility] Office Visiton 07-21-2024 Follow-up visit [id number] Rafi Roper 1955 F Date Provider Department Center 07/21/2024 EUGENE MIJARES GREGORY [facility] Family History Problem Relation Age of Onset Pneumonia Father Lung cancer Brother Family Status - Relation Status Age at Mother Father Brother Level of Service:07[address] [place] OFFICE/OUTPATIENT NEW MODERATE MDM 45 MINUTES [facility] Ambulatory Visit Summaryon 0 07-01-2024 Ambulatory Visit [...] mg Tab) fluticasone nasal (Flonase 0.05 mg/inh [place]) gabapentin (gabapentin 300 mg Cap) hydrochlorothiazide (hydrochlorothiazide [...] Preethi SHANNON, Maldonado Tejada Where: [facility] Sunday 8:40 AM EDT With: Francisco Mckeon MD Where: [facility] [place] [id number]- Medications What How Much When Why Instructions [...] Unchanged fluticasone nasal (Flonase 0.05 mg/ inh [place]) 2 Sprays Nasal Inhalation Every day each [...] COVID Diabet (more content not included)... Normal [facility] Family Medicine Office/Clini c Noteon 07-01-2024 [...] % (01/01/24 10:01:00) Referred to Urology @ [facility] due to hematuria & Digestive Health for [...] refills due to inconsistencies and complications at [facility], impacting the handling of her diabetes and other chronic conditions. She also shared recent minor episodes of hemorrhoidal bleeding managed with [id number] options and highlighted urinary concerns previously evaluated [...] - Medication refills and timing consents with [facility]. - Discussion over allergen management strategies, including pollen. - Evaluation of glucose-lowering alternatives to manage diabetes: introduction to Trulicity trial in place of Lantus or sliding scale insulin. - Insulin regimen review and potential reduction. - Recommendation for a audit consultant change and continuity care with [facility] cardiologists. Review of Systems PHQ Score Initial [...] cerebral meninges) Stable without any concerns. Ordered: [facility] External Ambulatory Referral 2. CHF (congestive heart failure) (I50.9: Heart failure, unspecified) The patient presents with significant bilateral leg swelling, raising suspicion for fluid retention. Continual monitoring with the existing diuretic therapy, with no further pharmaceuticals known to contribute to this symptom. Close observation and possible diuretic adjustment mentioned. Ordered: [facility] External Ambulatory Referral 3. DM type 2 causing vascular disease (E11.59: Type 2 diabetes mellitus with other circulatory complications) For the allergic shiner, suspected cat or pollen exposure was disc (more content not included)... Normal [facility] Comment on above: Result Comment: Elec tronically Signed By: Mervin SHANNON, Francisco Terrell\.br\Date and Time Signed: 07/01/24 09:53 EDT Urine Cytology ([facility])on 0 03-21-2024 Microscopic exam Cytology (U) [Interp] Diagnosis Info Invalid Interpretation Code [facility] Comment on above: Result Comment: A:Ur ine,Urine:Cystoscopy Interpretation - A few clusters of urothelial cells with mild atypia, low grade papillary urothelial neoplasm can not be excluded. Clinical correlation is indicated. Adequate cellularity for evaluation. CPT 43316 MicroScopic Description - Adequacy - Gross Description Site ID:A color Yellow fixative Alcohol Specimen designated Urine received in alcohol preservative and labeled with the patient???s name, consists of 100ml clear yellow fluid. Electronically signed by : on: 03/21/2024 12:31:11 Performed By: #### 1 [id number] #### [facility] [address] [place] [address] CT Urogramon 03-20-2024 CT Urogram Exam Date/Time: [...] Gen Babb MD Transcribed by: NELIDA Technologist: KYLAH Technical Comments GFR (mL/min/1/73m2) >60 Contrast: Isovue 300 Contrast amount in ml's: 100 Rectal Contrast Given? No Normal [facility] CHEMISTRYOrdered By: SYSTEM SYSTEM on 03-18-2024 Creatinine [Mass/Vol] 0.8 mg/dL Normal 0.5 - 1.3 mg/dL Remisol Chem eGFR 79 mL/min/1.73 m2 Normal >=59mL/min /1 .73 m2 Remisol Chem Creatinineon 03-18-2024 Creatinine [Mass/Vol] 0.8 mg/dL Normal 0.5-1.3 [facility] Comment on above: Performed By: #### 2 [id number] #### [facility] [address] [place] [address] eGFRon 03-18-2024 eGFR 79 mL/min/1.73 m2 Normal >=59 [facility] Comment on above: Performed By: #### 1 [id number] #### [facility] [address] [place] [address] Inpatient Patient Summaryon 03-17-2024 Inpatient Patient Summary Inpatient Patient Summary [facility] [address] [place], [place] [address] Clinical Summary Person Information Name: RAFI ROPER Age: 69 Years : 1955 Sex: Female PCP: Francisco Mckeon MD Marital Status: Race: White Ethnicity: Non- or Language: Mauritanian Visit Id: Visit Reason: MICROSCOPIC HEMATURIA Speciality: Acuity: Enc Type: Outpatient Med Service: Surgery Arrival: 03/17/2024 08:51:37 Discharge: Dispo Type: Address: [address] [place] [id number] Provider Notes: Diagnosis: Microscopic hematuria; Urethral caruncle; [...] Refills: 1. fluticasone nasal (Flonase 0.05 mg/inh [place]) 2 Sprays Nasal Inhalation every day. each nostril. Refills: 0. fluticasone nasal (fluticasone Nasal 0.05 mg/inh [place]) USE 2 SPRAYS IN EACH NOSTRIL ONCE [...] problems. Type Location Start Finish State Open [facility] 07/01/2024 8:30 AM 07/01/2024 8:45 AM Confirmed Patient Education Information: EU - Cystoscopy Discharge Instructions (CUSTOM) [facility] Main OR Intraoperative Recor don 03-17-2024 Main OR Intraoperative Record Main OR Intraoperative Record IntraOp Document Type FTURO Summary Primary Physician: Maris Scott MD Finalized Date/Time: 03/17/24 09:58:22 Pt. Name: RAFI ROPER Louise Morataya/Sex: 1955 Female Med Rec #: [id number] Physician: Maris Scott MD Financial #: [id number] Pt. Type: O Room/Bed: / Admit/Disch: 03/17/24 [...] Kendall R Role Performed Surgeon - Primary Capital Campaign Fundraiser - Primary Scrub - Primary Time In [...] URINE CYTOLOGY Primary Procedure Yes Primary Surgeon Maris Scott MD Start 03/17/24 09:52:00 Stop 03/17/24 09:55:00 Anesthesia [...] VAGINA Prep Agents Hibiclens Skin. Condition Intact, [place], Warm, & Description N/A Dry Additional Other [...] Singh 03/17/24 09:58 Krys Singh 03/17/24 09:58 Normal [facility] Main OR Preoperative Recordo n 03-17-2024 Main OR Preoperative Record Main OR Preoperative Record Holding Area Document Type FTURO Summary Primary Physician: Maris Scott MD Finalized Date/Time: 03/17/24 09:46:34 Pt. Name: RAFI ROPER/Sex: 1955 Female Med Rec #: [id number] Physician: Maris Scott MD Financial #: [id number] Pt. Type: O Room/Bed: / Admit/Disch: 03/17/24 [...] Complaints of Pain: No Skin Integrity Intact, [place], Warm, & Dry Vitals - EU Blood Pressure 134/94 Pulse 82 bpm Respirations 18 br/min SPO2 96 % Additional FISH RN Reviewed Yes Specimens Collected Last Modified By: Krys Singh 03/17/24 09:45:41 Finalized By: Krys Singh Document Signatures Signed By: Krys Singh 03/17/24 09:45 Ralph Singhsie Janie 03/17/24 09:45 Ralph Singhsie Janie 03/17/24 09:46 Burgderfer, Krys E 03/17/24 09:45 Burgderfer, Krys E 03/17/24 09:46 Burgderfer, Krys E 03/17/24 09:46 Burgderfer, Krys E 03/17/24 09:45 Burgderfer, Krys E 03/17/24 09:46 Burgderfer, Krys E 03/17/24 09:46 Normal [facility] Operative Reporton Operative Report Operative Report Patient: RAFI ROPER Age: 69 years Sex: Female : 1955 Associated Diagnoses: None Author: Tyler SHANNON, Maris Tony Procedure Operative Information Details: Date/ Time: 03/17/2024 09:59:00. Pre-Op Dx: Microscopic hematuria ([id number] R31.29, Discharge, Medical). Post-Op Dx: Same. Anesthesia [...] caruncle/vaginal atrophy. Estrace cream started . Normal [facility] Comment on above: Result Comment: Elec tronically Signed By: Maris Scott MD\.br\Date and Time Signed: 03/17/24 10:01 EST Outpatient Surgery Discharge Instructionon 03-17-2024 Outpatient Surgery Discharge Instruction Outpatient Surgery Discharge Instruction [place] [phone] Patient Discharge Instructions PERSON INFORMATION Name: RAFI [...] Call for any problems. Type Location Start [facility] 07/01/2024 8:30 AM 07/01/2024 8:45 AM [...] you have a fever over 100 degrees. MIHIR Walters NANCY J, have received the attached patient education materials/instructions and have verbalized understanding: May we do a follow up call? Yes No I was present when discharge instructions were given Patient Signature Date Clinican/Nurse Signature ___ Date You may receive a survey from [facility] asking you to rate your care experience. Your feedback is important and will help us understand what we do well and how we can improve the quality of care we provide to you, your loved ones and our community. It???s an honor to serve you. Thank you for choosing [facility] Normal [facility] Urine Cytology ([facility])on Method of Extraction Cystoscopy Normal [facility] Comment on above: Performed By: #### 1 [id number] #### [facility] [address] [place] [address] Number of Jars 1 Invalid Interpretation Code [facility] Comment on above: Performed By: #### 1 [id number] #### [facility] [address] [place] [address] Specimen Urine Normal [facility] Comment on above: Performed By: #### 1 [id number] #### [facility] [address] [place] [address] Type of Service Technical Only Normal [facility] Comment on above: Performed By: #### 1 [id number] #### [facility] [address] [place] [address] Heart and Vascular Office/Cl inic Noteon 01-25-2024 [...] artery bypass grafting surgery in 2020 at [facility]. At that time, she presented with non-ST [...] anginal-like symptoms. Will submit a request to [facility] regarding prior cardiac workup, apparently it was [...] Daily, 3 refills cholestyramine Flonase 0.05 mg/inh [place], 2 spray(s), Nasal, Daily fluticasone Nasal 0.05 mg/inh [place], See Instructions [email or web address] L[place]h Flash Glucose Monitoring 14 Day System [...] 100 mg= (more content not included)... Normal [facility] Comment on above: Result Comment: Elec tronically Signed By: Miguel SHANNON, Janes Hubbard\.elliot\Date and Time Signed: 01/25/24 14:11 EST Ambulatory Visit Summaryon 1 03-25-2023 Ambulatory Visit Summary Ambulatory Visit Summary MIHIR RAFI J :1955 Visit Date:01/24/2024 Ambulatory Visit Instructions Your Diagnosis Family history of colon cancer History of Clostridium difficile colitis History of cholecystectomy Fecal urgency Bowel habit changes Your Care Team Attending Physician - Raman Garcia MD Primary Care Physician - Francisco Mckeon MD This Is Your Medications List cholestyramine (Questran 4 g/9 g oral powder) Contact prescribing physician if questions or concerns Misc Prescription (Freestyle L[place]h Flash Glucose Monitoring 14 Day System (Sensor)) Misc Prescription (Misc DME Prescription) Misc Prescription (Pen Needle 31G x 6mm) aspirin (aspirin 81 mg Oral EC Tab) atorvastatin (atorvastatin 80 mg Tab) dapagliflozin (dapagliflozin 10 mg oral tablet) ezetimibe (Zetia 10 mg Tab) fluticasone nasal (Flonase 0.05 mg/inh [place]) fluticasone nasal (fluticasone Nasal 0.05 mg/inh [place]) gabapentin (gabapentin 300 mg Cap) insulin aspart [...] Miguel SHANNON, Janes Hubbard Where: [facility] Sunday 11:00 AM EST With: Where: [facility] Sunday 9:15 AM EST With: Where: [facility] Sunday 8:30 AM EDT With: Francisco Mckeon MD Where: [facility] Medicine [address] [address]- Medications What How Much When Why Instructions New cholestyramine (Questran 4 g/ 9 g oral powder) 1 Packets By Mouth 2 times a day Family history of colon cancer Pickup at [facility]/pharmacy #[id number] Unchanged aspirin (aspirin 81 mg Oral EC [...] Unchanged fluticasone nasal (Flonase 0.05 mg/ inh [place]) 2 Sprays Nasal Inhalation Every day each nostril Contact prescribing physician if questions or concerns Unchanged fluticasone nasal (fluticasone Nasal 0.05 mg/ inh [place]) See instructions USE 2 SPRAYS IN EACH [...] Contact prescrib (more content not included)... Normal [facility] Gastroenterology Office/Clin ic Noteon 01-24-2024 Gastroenterology Office/Clinic [...] 90.1 fL (07/29/23) Chloride: 106 mmol/L (07/29/23) [place] Absolute: 0.5 E9/L (07/29/23) CO2: 30 mmol/L (07/29/23) [place] Auto: 9.1 % (07/29/23) Creatinine: 0.8 mg/dL [...] BID, # 60 EA, Refills(s) 0, Pharmacy: [facility]/pharmacy #[id number], 164, cm, 01/24/24 8:54:00 EST, Height/Length [...] oral table (more content not included)... Normal [facility] Comment on above: Result Comment: Elec tronically Signed By: Radha SHANNON, Raman Cochran\.br\Date and Time Signed: 01/24/24 09:31 EST C Urineon 01-19-2024 Bacteria identified Cx Nom (U) Microbiology PROCEDURE: Urine Culture [R1] SOURCE: U CleanCatch BODY SITE: COLLECTED DATE/TIME: 01/17/2024 13:14 EDT RECEIVED DATE/TIME: 01/17/2024 19:18 EDT START DATE/TIME: 01/17/2024 19:18 EDT FREE TEXT SOURCE: KAYLA GEORGE PA-C, PA-C, JENNIFER E FINAL REPORTS Final Report [] Verified Date/Time: 01/19/2024 10:12 EDT No growth at 2 days. Performing Locations R1: This test was performed at: [facility], [address] [place] [address], [facility] , , Normal [facility] Comment on above: Performed By: #### 2 [id number] #### [facility] Laboratory [address] [place] [address] PVR Lower EXT Complete Bi laton 01-18-2024 [...] REPORT Dictated: 01/18/2024 11:14 am Michael Jeff MD. Signed (Electronic Signature): 01/18/2024 11:14 am Signed by: Mihcael Jeff MD Transcribed by: NELIDA Technologist: MAICO Hutson [facility] MM screening mammo BI w/CADo n 01-17-2024 MM screening mammo BI w/CAD [facility] [place] [address] [place] [address] Mammography Report Signed Patient: Rafi Roper MR#: [id number] : 1955 Acct:[id number] Age/Sex: 68 / F ADM Date: 01/17/24 Loc: [place] Room: Type: [facility] Attending Dr: Referral Self Copies to: SELF,REFERRAL [...] Whitney Soni M.D.01/17/2024 2:25 PM Dictation Location: [facility] Transcribed By: [facility] 01/17/24 142 Dictated By: Whitney Soni MD 01/17/241421 Signed By: 01/17/24 142 Normal [facility] URINALYSISOrdered By: SYSTEM SYSTEM on [...] that meet specific criteria set forth by [facility]. Epithelial cells.squamous Auto (Urine sed) [#/Area] 0-2 graded/HPF Invalid Interpretation Code [facility] UA Auto SS Glucose Ql (U) Negative Normal Negativemg/d L [facility] UA Auto SS Hemoglobin Auto test strip [...] Normal Negativemg/d L [facility] UA Auto SS pH (U) 6.5 *NA* (01/17/24 1:14 PM) Invalid Interpretation Code 5.0 - 9.0 [facility] UA Auto SS Protein Ql (U) Negative Normal Negativemg/d L [facility] UA Auto SS RBC Ql (U) 4-20 graded/HPF Invalid Interpretation Code 0-3graded/HP F [facility] UA Auto SS Specific gravity (U) [Rel density] 1.017 *NA* (01/17/24 1:14 PM) Invalid Interpretation Code 1.005 - 1.030 [facility] UA Auto SS Urobilinogen (U) [Mass/Vol] Negative Normal Negativemg/d L [facility] UA Auto SS WBC Auto (Urine sed) [#/Area] 0-5 graded/HPF Normal 0-5graded/HP F [facility] UA Auto SS URINALYSISOrdered By: Bernie Ramos on 01-17-2024 UA Spec Desc Clean Catch (01/17/24 1:14 PM) Normal [facility] UA Auto SS Urinalysis with Microon 12-19 Bilirubin Ql (U) Negative Normal Negative [facility] Comment on above: Performed By: #### 4 [id number] #### [facility] [address] [place] [address] Clarity (U) Clear Normal Clear [facility] Comment on above: Performed By: #### 4 [id number] #### [facility] [address] [place] [address] Color (U) Light-Yellow Normal Yellow [facility] Comment on above: Result Comment: Micr oscopic readings are only performed on those samples that meet specific criteria set forth by [facility]. Performed By: #### 4 [id number] #### [facility] [address] [place] [address] Epithelial cells.squamous Auto (Urine sed) [#/Area] 0-2 Invalid Interpretation Code [facility] Comment on above: Performed By: #### 4 [id number] #### [facility] [address] [place] [address] Glucose Ql (U) Negative Normal Negative [facility] Comment on above: Performed By: #### 4 [id number] #### [facility] [address] [place] [address] Hemoglobin Auto test strip (U) [Mass/Vol] 1+ mg/dL Abnormal Negative [facility] Comment on above: Performed By: #### 4 [id number] #### [facility] [address] [place] [address] Ketones Auto test strip Ql (U) Negative Normal Negative [facility] Comment on above: Performed By: #### 4 [id number] #### [facility] [address] [place] [address] Leukocyte esterase Auto test strip Ql (U) Negative Normal Negative [facility] Comment on above: Performed By: #### 4 [id number] #### [facility] [address] [place] [address] Mucus Auto Ql (U) Trace Normal Negative [facility] Comment on above: Performed By: #### 4 [id number] #### [facility] [address] [place] [address] Nitrite Auto test strip Ql (U) Negative Normal Negative [facility] Comment on above: Performed By: #### 4 [id number] #### [facility] [address] [place] [address] pH (U) 6.5 [pH] Invalid Interpretation Code 5.0-9.0 [facility] Comment on above: Performed By: #### 4 [id number] #### [facility] [address] [place] [address] Protein Ql (U) Negative Normal Negative [facility] Comment on above: Performed By: #### 4 [id number] #### [facility] [address] [place] [address] RBC Ql (U) 4-20 Abnormal 0-3 [facility] Comment on above: Performed By: #### 4 [id number] #### [facility] [address] [place] [address] Specific gravity (U) [Rel density] 1.017 Invalid Interpretation Code 1.005-1.030 [facility] Comment on above: Performed By: #### 4 [id number] #### [facility] [address] [place] [address] Urobilinogen (U) [Mass/Vol] Negative Normal Negative [facility] Comment on above: Performed By: #### 4 [id number] #### [facility] [address] [place] [address] WBC Auto (Urine sed) [#/Area] 0-5 Normal 0-5 [facility] Comment on above: Performed By: #### 4 [id number] #### [facility] [address] [place] [address] Type of Urine collection method Clean Catch Normal [facility] Comment on above: Performed By: #### 4 [id number] #### [facility] [address] [place] [address] Urology Office/Clinic Noteon 01-17-2024 Urology Office/Clinic Note [...] Skin: No rashes or suspicious lesions Assessment/Plan ELLIE pt, last seen 10/2021. Re-referred by Dr. [...] ureter) CT AP wo contrast 09/26/21 at [facility] - left obstructing 2mm UPJ/proximal ureter stone [...] recommendations. Asymptomatic. Follow-up With When Contact Information KAYLA GEORGE PA-C, URL [address] [place] [address] Additional Instructions: F/up pending micro UA results Patient Education Hematuria, Adult Documentation recorded by the jack Fry accurately reflects the services(s) I performed and decisions made by me. Authenticated by Kayla George PA-C on 01/17/2024 13:11:32. Salma Walters, personally scribed for Jenn George PA-C on [...] Oral, Daily, 1 refills Flonase 0.05 mg/inh [place], 2 spray(s), Nasal, Daily fluticasone Nasal 0.05 mg/inh [place], See Instructions Freestyle Lokesh Flash Glucose Monitoring 14 Day System (Sensor), See Instructions, 11 refills gabapentin 300 mg Cap, 300 mg= 1 cap(s), Oral, Once a day (at bedtime), 3 refills Lantus Solostar Pen 100 units/mL subcutaneous solution, See Instructions, 3 refills levothyroxin (more content not included)... Normal [facility] Comment on above: Result Comment: Elec tronically Signed By: KAYLA GEORGE PA-C\.br\Date and Time Signed: 01/17/24 13:11 EDT\.br\Electronically Co-Signed By: Salma Fry.br\Date and Time Co-Signed: 01/17/24 13:05 EDT C Urineon 01-03-2024 Bacteria identified Cx Nom (U) Microbiology PROCEDURE: Urine Culture [R1] SOURCE: U CleanCatch BODY SITE: COLLECTED DATE/TIME: 01/01/2024 09:40 EDT RECEIVED DATE/TIME: 01/01/2024 17:52 EDT START DATE/TIME: 01/01/2024 17:52 EDT FREE TEXT SOURCE: Francisco Mckeon MD, MD, Francisco Terrell FINAL REPORTS Final Report [] Verified Date/Time: 01/03/2024 06:47 EDT 300 cfu/ml Mixed skin contaminants Performing Locations R1: This test was performed at: [facility], [address] [place] [address], [id number] , , [facility] Comment on above: Performed By: #### 2 [id number] #### [facility] [address] [place] [address] Ambulatory Visit Summaryon 1 Ambulatory Visit Summary Ambulatory Visit Summary RAFI ROPER :1955 Visit Date:01/01/2024 Ambulatory Visit Instructions Your Diagnosis HTN (hypertension) Peripheral vascular disease, unspecified Screening for colon cancer Hematuria, unspecified Type 2 diabetes mellitus with hyperlipidemia BMI 28.0-28.9,adult Overweight Nonsmoker Your Care Team Attending Physician - Francisco Mckeon MD Primary Care Physician - Francisco Mckeon MD. This Is Your Medications List Misc Prescription (Pen Needle 31G x 6mm) dapagliflozin (dapagliflozin 10 mg oral tablet) losartan (losartan 50 mg Tab) Contact prescribing physician if questions or concerns Misc Prescription (Freestyle [place]h Flash Glucose Monitoring 14 Day System (Sensor)) Misc Prescription (Misc DME Prescription) aspirin (aspirin 81 mg Oral EC Tab) atorvastatin (atorvastatin 80 mg Tab) ezetimibe (Zetia 10 mg Tab) fluticasone nasal (Flonase 0.05 mg/inh [place]) fluticasone nasal (fluticasone Nasal 0.05 mg/inh [place]) gabapentin (gabapentin 300 mg Cap) insulin aspart [...] Miguel SHANNON, Janes Hubbard Where: [facility] Sunday 8:30 AM EDT With: Mervin SHANNON, Francisco Terrell Where: [facility] [address] [address]- You Need to Complete the Following US PVR Lower EXT Complete Bilat, 01/01/24, Routine, Order for future visit, Transport Mode: Ambulatory, Reason: Leg pain, No, HTN (hypertension) Peripheral vascular disease, unspecified Screening for colon cancer Hematuria, unspecified Type 2 diabetes mellitus with hyperlipid... Medications What How Much When Why Instructions Changed Misc Prescription (Pen Needle 31G x 6mm) See instructions Pen Needle 31G x 6mm. Pt needs 5 boxes of 3 months supply. Pickup at [facility]/pharmacy #[id number] Unchanged dapagliflozin (dapagliflozin 10 mg oral tablet) 1 Tablets By Mouth Every day Pickup at [facility]/pharmacy #[id number] Unchanged losartan (losartan 50 mg Tab) 1 Tablets By Mouth 2 times a day Pickup at [facility]/pharmacy #[id number] Unchanged aspirin (aspirin 81 mg Oral [...] Unchanged fluticasone nasal (Flonase 0.05 mg/ inh [place]) 2 Sprays Nasal Inhalation Every day each nostril Contact prescribing physician if questions or concerns Unchanged fluticasone nasal (fluticasone Nasal 0.05 mg/ inh [place]) See instructions USE 2 SPRAYS IN EACH [...] Tab) 1 (more content not included)... Normal [facility] Family Medicine Office/Clini c Noteon 01-01-2024 Family [...] but done in past Eye Exam: due Jan or Feb Last A1C: Hgb A1C %: 7 % [...] to ensure blood pressure remains well-controlled. Ordered: [facility] Internal Ambulatory Referral [facility] Internal Ambulatory Referral US PVR Lower EXT Complete Bilat 2. Peripheral vascular disease, unspecified (I73.9) Differential diagnosis includes peripheral vascular disease. Appropriate vascular studies such as an ankle-brachial index (BREEZY) may need to be performed to determine blood flow to the legs. Management will depend on these findings, potentially leading to surgical or conservative interventions. Ordered: [facility] Internal Ambulatory Referral [facility] Internal Ambulatory Referral US PVR Lower EXT Complete Bilat 3. Screening for colon cancer (Z12.11: Encounter for sc (more content not included)... Normal [facility] Comment on above: Result Comment: Elec tronically Signed By: Mervin SHANNON, Francisco Terrell\.br\Date and Time Signed: 01/01/24 09:58 EDT CHEMISTRYOrdered By: SYSTEM SYSTEM on 10-03-2023 Cholesterol [Mass/Vol] 95 mg/dL [...] 10-03-2023 Cholesterol [Mass/Vol] 95 mg/dL Low 120-200 [facility] Comment on above: Performed By: #### 2 [id number] #### [facility] [address] [place] [address] Cholesterol in HDL [Mass/Vol] 47 mg/dL Invalid Interpretation Code [facility] Comment on above: Result Comment: '>= 60 LOW RISK' '<= 40 HIGH RISK' Performed By: #### 2 [id number] #### [facility] [address] [place] [address] Cholesterol in LDL [Mass/Vol] 34 mg/dL Normal <=129 [facility] Comment on above: Performed By: #### 2 [id number] #### [facility] [address] [place] [address] Cholesterol in VLDL [Mass/Vol] 18 mg/dL Normal 7-40 [facility] Comment on above: Performed By: #### 2 [id number] #### [facility] [address] [place] [address] Triglyceride [Mass/Vol] 89 mg/dL Normal <=149 [facility] Comment on above: Performed By: #### 2 [id number] #### [facility] [address] [place] [address] Coding Summary.on 09-12-2023 Coding Summary. ZLIHSyzb74JXu5oYm+PG hl YWQ+UJ3LATWvZ88uoOZnlM 6gM6SUPLyLPrujUNVBLPzO NiHpzkHeSF3ujBTtWNMm IC8+PP0eILPhAarkhQTvh7 T6dZU0J32gzz4kQQoziBR5 VPAwLqFlayghb8qfiKs9NT cuNmluOyBt HYZeuI67IYG0aC94Wg69bG WhhVRvp0gwsPd0MnYvWJMv OXO0wLzvQDhau7PnWVThL0 7tuLMjm3Y3 WBDneQmpoBVsNbDnmPJ3yS 7wZRtmsfzyj9mzaojwJct5 hf87gECdt2F5sRJ1R0Tnrq K8DZNilUXd WniwoJFMdY3avcpxe8ehto cnEdZhKSApWTh8MFw6UAKu iCioYuJqQZ86GJG3SLMqwl IsC0WvGMNa bQluZoM4v4S5Vs0DW2FGVg dvW2RRMWLYJGcqkLL+PC90 ca34E7LiLrcrDyy4YJQjBR X0yKO5wL3v WWLeTNsmz3W7yWW7J8Fsqj Hftm8io7qvUIEdFBikW60d lTNuz1K0BEXkxQL7WVYeeU tnHuXblM04 Oyc+QYWgbFytf5IqLjxlj3 uwg1tkaDe3RajyTHTmzwCs lEgzTTH6z1JaOn7eNHEwmD R3jRS8bJ4u OzIdSqT3WUqfC693OfImjX IoBssnM13hN3QriQW+PHRy Jiv9ZUCjeMfeBE0sB8XvNM RpbmctbGVm jWpsVQ0fKDZjcjdvPAUynL 6oPWLeJ0y4LeElFtE3WGuv G2FoRNWwdnwjVg82xD3vPj QeDfL8WAfw O9CaunK3EWEeyALcWWupEG S2R78sh8Y2PWLgTKQiAYD4 yVV2mY9alQqbmftgyWElbH sgdmVydGlj BXebMUsgO905BHEvkAvgIo NvZGluZyBEYXRlOiAgMDYv MjYvMjAyNDwvdGQ+PHRkIH Z2cWxiKRBm xKCdQGthFk0pzOfpqYjpSP 0eIPLyhulrJDWnoE6yPQWw pIUquIjiDN3lVASpnruus0 90KsHtJIX2 NVTatJJuC0YheX2zNeVeLS UxWVWwL5UeoHBnGRduS928 FJppTtF2JQZnoaQsE9ErGP FsaWduOiB0 d9L4Iw1Yb9YkldvlA8SuiK PdHlAhMkzeZPb4R1HkZjor dHI+VZ45GBCnKA92KFm9YG L4fLocDOon BJOdN1BzpZ4pAmIeVCYjZJ RkOyc+PHRhYmxlIHdpZHRo OXzlKTLfHmRykYblGU8aWu 9yZGVyLWNv eEzxvXNgWoSop5zbKPFxOW ezLV7cqYpzG1WzyEN7CNCv c6w1Ai72G69cS9NolND+PG DxgVG7cDJ7 fW1pGdOsOzI1CHakZ011Rg GuwGIdDqhtd4hzr3frdWw5 KfV6OIBumnDibRwhFJY0f4 HfTs12Z20f IHdpZHRoPSIxNSUiIHZhbG qpex8zsZ4jFj5+PGNvbCB3 jAV5tJ8eSdObHbN7LHufB6 49InRvcCIv Qtyuo1nig9rcgYy6VqKhZO LnbuCvsRznIJP5s7KfMk49 Y2DpoUcmd6PtLqg2bk62iP Qqj3R2eIQ3 M4ChORYyffphzDJpeNrwZL 7oUVAwfkiaJBJprU3oPHNq R5n1CoOqBtP9LLkdC8Wkxj Z2ZSKvuJWz QYUtvWTQkG2zajfno7qvop saZnIiUWQuCIq3NZm2YSAh kVzqQjNqLJT5IoZ5AOO8oL UviE5ptFxd gkmukI0vQbs+XIW7bOGubL KYKE4zBidomDH+PHRkIHN0 gGyoDCsyKGVapJ7bTPGwD0 x9WtNuIbW9 HKacU9FakmT0FRSmfIHjEI VlaIHObJ0faqzeb4gmqval PoGnHLZhNZr4VMn3DRXtkT duOiBsZWZ0 OvC1TUV2rTZtxW8wgShzvc zuyZ5mMyc+QmlydGggRGF0 LWt9D8GcZls9LFFgeRmoYX 0ncGFkZGlu Sk5fyXnbhVftZR3vRJWbhi bjb831YkTof2suNXEvkYMh XKynRFG6Q42zx4U3RIXyZM JrSLY9wGB3 hG5qkBmkdjuhdSMqhUofhy FwdEarXZdiDPypX046OOMe yHtmCzFrJTx8U1CcAqy9PC FvkOumRF6i sNAsFPmpLg5rtOpmkVemPV 7cFVEbniunp996HkXru1zw HMSicKBbASsrCMF4G35ao8 Q6JUOyXEEc KUZ8vYT7tH4svAyofzuvxT VmdDsgdmVydGljYWwtYWxp E692DSAtjSwzUvQsoSe0U7 NdJgu1HWOf hGyxBP6upPZhFPivNo9bpI bbgWywAI2pROTexqyrf426 SaXwy2erJHZvaRJhEYzzTA D4L21qi4U2 BZLxNYGjKMC1qZQ8rD1iiI lnbjogbGVmdDsgdmVydGlj YFpdIWatK871VJVwgJyrFg BhdGllbnQg MHibOQb3J5ZyWojteXK+PC 64XHSjLV75sRNqyQOrh5iy qWm8AgJfJROfBVN0fOcoGY psw7WcELZb E48nvAGor9W7XSKobKpfvK HcNsAekRQ6vZ2yUYdbzyph x7gayhjhNzfzt4ynpr26rO 08H06hPNjz ZHRoPSIzMCUiIHZhbGlnbj 0fmG4tZw6+SQGzdPE0nAP5 wW0zEULcFtO0JGqvG933Bl RvcCIvPjxj q2apl5wppCs5WbE0ETZisv LotIkuJZC4m3XkSc14E27j IHdpZHRoPSIyMCUiIHZhbG etup8qeD6n Ii8+AGPanXX0aMP1tL1pIq TqJnS4MAxcA634MrAgdZFj RqyxL74qF4TnaHK+PHRyPj b5PFYajFsv WK8iqVXgQAcmSo7hMCP8Hd BfAmAqJJunW4TdBHGguwrj giiqtJN1ERCuBGXynE97Bv 9udDogMTBw lUJFiZ2jnbvkb1qbywpzPb PiLJHuWRf4TOr6FVWpsXgi CzKxAEK4RcU0IXP1zYPrrV 1hbGlnbjog zY7tQ1UiWZZxgxetBx89bV 6dSoZxCeA1TYsmGhu+U0hF LMzVESzeBwGNP2wxIazkjZ Q+PHRkIHN0 vCbnSQwuWXUyiL1fSCDdM6 k0YfPvQhA0LDisD5GaRFKw cfnwBf29gI2cUqDjXjM5ZE wwI3SnkpI8 RHVfhGKgALjyCKM8I63vq1 N8CRGlCCJtSDV8vEB9oK4y bGlnbjogbGVmdDsgdmVydG ljYWwtYWxp Q822CLBzaNwvAbAdXpMsKs K4NWK0S4AiSdo4OZNoaJax YB9tlCTtAZsdSe8urMwdhY huIU5gTZJt biptEPLaiT0yGIKhbKLjtW rhNV1oAUFiusiga275CzVo KJH4ZWHuaAFkZ0OvnN2wLo AjMDAwMDAw U9DjpLCwLQyrH959JFjjFl Z8BFQhhmQsL2UeZEMfmRhl LkQ6k1Z2Sc32ACLFOCLmjo wvdGQ+PHRk JGJ1cVjiXCrhPPJcfN9bRO FdX6k9RrGuQeX5CKmsT7Vz IQFyfulkOw41jE8eGnXoGg L7RJtxM9Lu koO0OOChfSYyQQfrYXI3M5 8fc1J3WJJaTDHfTMP3eVB9 aW3mnUlgvbazkNFouHpttk VydGljYWwt IFhdY026CSPsoKziQeBxjT FsZTwvdGQ+IAPbRPW9aBlw KZynCESxbS0fVVNkX7c7Vd BgGtU4NAsd L5KxAXAzzanbTv11tD2dIh PcWqT8TCbcB4GcirW7CSEx yUNrPYqsKIZ6R04fs1Y5JN MwMDAwMDA7 zIF7vS1dnWtcceywoCLgkH lrkvUvnQduGJorYZjfN362 YCYmlOthHq80uQIuiBiudt V8U6TyDbnh dHI+MB51QESuSE43oVQkmC Hjj1shbUg2XkWpMDBtJKV1 mFoqJFjlu8OrLHRzR47ycV Ooy5N3XANb oJzftWNtUxHknLC0mQ1sMK cfsbltd8hrolcmWioax9bc rf45nF81E01lZXbdDIBnIC IzMCUiIHZh aInhib2gmJ7lBi8+PGNvbC H4aXU2qB4hJdCdUxQ8NDdv K765OoPnoSGpJsqxw0lpd3 nmfWf2LdJn RLLbivGhcHzlXGH6c5QlBq 45M35yLWvyQFGjCCLoHJWz RCMovSskkv1kjW2vPb9+PC 7yg3idyx47 jF26dVT+IKPrBKV6nWmrKI njZRRnuY3jCFzeTfG1XTPz XyNsmF37qZPsXPxcOe1fcR vyhQnoAF7t XYYxywdug537CiNnw0ylAE JtvPPxGQqaJYE3O73sj8H2 NIXjQVYdTOT9sKF7xO1fpD lnbjogbGVm dDsgdmVydGljYWwtYWxpZ2 58WFEbsDvvFgMvdCEhM9pj ztOFJJ9uBgygmWI+PHRkIH U4uUubRSlg OBEloC6pAVKhL8s3IqTrKn V1NNwtT7IrjjH3JDVhiQTf MYEjzDTYvX8nonxne2tuun ogIzAwMDAw RLo5TMp3FLMscSjwZjYaYG E2HeM1NNH1oGBgyE2lvZtk beevqO8dLku+RklOOjwvdG Q+PHRkIHN0 mXluHAwmLBIlkI8jQCUoE5 j2CeTqFdI6LGioV5GvtkT1 KUKnnESnKAWeyFSXnX5alp alb0mzmxwb BmCnRBTxILu3WLj5AKDttJ ufLbPmFAX6CaK8VJP0pTFp uP9xjHxylrqfhH3vCrt+TV JOOjwvdGQ+ JSWoMPY3aVjhMHcpFCNckD 1nXIKfB4q6DtTtCvB5FPby M5SssxY4YNHnbJDbVVBmbM SJsV2tyljt g4gyvccmPtQbRZYuHHm5ZL l7ACIihAalCiUoOID5QmT7 RTI3nMAppO9icQfkwgvhbE 9wOyc+UGF5 XZN6BR15DE13U9AtQqxeeG FibGU+PHRhYmxlIHdpZHRo DYbiCDCqKtBiyXaiAG6qSk 9yZGVyLWNv bGxhcHNlOiBjb (more content not included)... Normal [facility] Coding Summary. RAPHOopg36MUp6gSi+PG hl YWQ+ZV0WTRBkC98yuEZtuO 9wY8VLDKkPObdlWHHRBClC WqHlriIgYO0ooOIiGCHs IC8+TQ9uDUMwRrmiqNWtz2 Q5gQL4V17cbv1rKLfcuQK7 ETNqAcOivkzql1nmuDf1IR cuNmluOyBt YIVtsD11XNI7pX38Qg80dH UvnLRhx6mtcWr6QiSjSJYp ECL9sZctWTfve1JxFJFlI9 7lmFTyb4J8 PAOiySjmoMSzNjTubEG6iK 9bPOzpsckjg9vlvvgjWqi6 xg78iVWft1M0xUN8F8Infc P3DSXewXJa BnthmAUQiZ0hyrguh1jmnd brUuDyFIDbKAm8KQn2IODf sJctFzJvQX63GTP7ILJkxq OfH7IhAUXh nGqbSzR5f6U6As5JM1DIJz hzB1FVIXWBYGqtePJ+PC90 sc99U8GtOmspQsj4XVSrRB Z7cHJ2iM0u RRGsDSkix0E0zZE1E9Mnxj Aflj5nk3maTKHnRCcqC45i uVVqa0X5DIAasUS1ABIcyB dkIhYnfY89 Oyc+NNAjiYgpc7IzYhoto8 gcl1aioPu3NdymRMKjvmFe oIliGLD2e2GhFm0tBPMwyQ I6pHT8rC8l BpLbTjA0WLdqY718RwYjjU NrDqvjH64rC8BouUF+PHRy Imq7TZKlzRodKR1pB8ZlYL RpbmctbGVm yXavTX3rQRIjrkljPLPadG 7bGXJbW4x9MeXiPtO8FJdi G2WrNVHwhyqwCw92gP8vEr EzFuG1IEap Q2InduT5GKQhqRVfQSjwQS U7D28jv4C5VDOkXRSuEZE3 zAE6bY4aqLsmnctfxWDzjT sgdmVydGlj BUtxTGlyA520WJDclMklKc NvZGluZyBEYXRlOiAgMDYv MjUvMjAyNDwvdGQ+PHRkIH S7iXfdRIMr uVQcGAsrJf4xeFmjaPgbFF 1iUKLkvtbzTKFbjM4lBPAp pVBhoFaaLJ7kVSBbtqove2 57RlXwCXR9 JWWttMGhP7UlxS5pEkIeCV EkUVMkJ7BztIMzAUjxR841 PPrdWpX4NLWmkyTtV5ZpCW FsaWduOiB0 l5T2Oc8Kx8GistaxM1EguW DhEdImPxxbFZk0I0OrCrrf dHI+NX42QPWsII19GNx7HN N3oUwmGCcx KBGjI0XdlQ8hJxYwROOtCF RkOyc+PHRhYmxlIHdpZHRo CJyrSLJkXoQcuGbwAY8lAp 9yZGVyLWNv pMbdfUAfSwMaq8yyNYVnDG dwSC9voAvmR0IsuRO8JSUo k4z8To00S23oS7MbtEQ+PG XmeXJ8sPE9 hN0kDvOwUsU3XCpxC174Pw HedJPbZgddi4ase7tvgLo6 TbH1BZQncdUvxLwaIWE0y6 YsGz67A27y IHdpZHRoPSIxNSUiIHZhbG nohx9irN0sLz0+PGNvbCB3 dJL3oQ9nYyIkXjI6ADkyT0 49InRvcCIv Fuslc3qpg2zyiVx1GgRpIE DwxvFwrFkjIRH6n2KyNu69 Z4GrsHocp8HrHfm3pn41qL Urw3X3vEV6 W5WaNZMgbfsagKJucNytQC 1tCTUlvspwOYVlwP4lTYUh T6g1BdTaKmN5CLdaB6Mmrt W7ODGfiKTj EXFeiTTTiY9cdusri2plbx gbAmPjZWJtAEl6RIr9SNOv uHrxJxMvQSD8WxN7IEN4zO UvcE3zoUzy gztalM3gQoi+JHZ1mVBqdQ XCXU5iFttyxGJ+PHRkIHN0 yJceJIcvYQJbvH0hHZJnN4 o3WkZfJqZ1 QHwkW3GsmbI7XWFjuMZlSG SokGEWkD1zaiorc7mnpgzy HmVsHWAcAXr9LZy1BPXpuP duOiBsZWZ0 OeR1FBE0aOHnyJ9fsSqzoi eiwH2lJwn+QmlydGggRGF0 BYi2S3HrNzl1OMTumXsqYH 0ncGFkZGlu Ok0yuYlawGxuST9kUTGdnb epu818TtFsy0blBSPrtXBb WNgjUXL0C39fo9V0LOFyOH RfUQP5pAX7 zR9svTbvlzoxuJIgvLxmjb FvxAueDYnfGZqaF794OTTj aCugSpYoZTp2H5AjVuz3ZM QggUvrDI5m eORdCCpaAz6xmVdikJtbQU 9jVOWyojtfc605MjBci9br HMWdgCKcSKdwUAG1V26qz3 S9JPWnFQOj HVY4fZT1mG1twTaxzqyemU VmdDsgdmVydGljYWwtYWxp H772GPUwaDmdVmInxXh2G4 PnSzj1IRGy kFapSM2kpAJkSBtlAv1poG yhdSkxBT5tXGPndlgcd252 SwTea9wwAYAdpMXgEMcuNK S2F15th9B5 RCIlBDXyNTC1gBP4vI7otQ lnbjogbGVmdDsgdmVydGlj ILqhTXrzY552IJJdtSytEs BhdGllbnQg LActJQo0B6XzQnstbTT+PC 17TZOiSK13fXGicADln7zz lVo3AnXmFDJlDUB9sQkpPN qvb4DvWJDb A00nlSSwm1M7CXGesCmilZ RrGxLsdAU3vR4zSPtlacgr z5wnwlblSdkfi2sarv52sD 39S38eSCuv ZHRoPSIzMCUiIHZhbGlnbj 8qwH2gSr4+BCUrqER0uPE4 aG9gTMShLwT4OUuoF661Sq RvcCIvPjxj a9kfu5ilqAd6VdY8XFEntl QtgApwRMK9v0UxQf97F36u IHdpZHRoPSIyMCUiIHZhbG vunl0qzO9a Ii8+WFNuvKN7uMQ9hC5wLn NkOuE2EJooV386DtIagOQs ActaV14aL1WemRJ+PHRyPj a8AHRmpSbx TY2rwXYfPOsbBy0lJZO4Pj RbYxNmLUjaR2MxQFZosqzv kgkniVH6ZKIuRRZpeD81Ta 9udDogMTBw lYAUrE1yczelk0clmekbRe DsERKmSDd0TUa2OLWviQio VnBfOIR2VmN0VYC7dDZzbN 1hbGlnbjog vD7oA5ThKZHjvpyfXb29sF 8rHaLaLzY6FJzaBhe+U0hF HNiGAUdzZpMPT9udKdnucX Q+PHRkIHN0 lKtlPYloQKKeuG0hWIRaD3 z9MkRmVaG8JNlnR2VmFBHh dznrTq90yP0sOaCaMqV1GL qlX6IfneA3 FIAbzGCyXExmVMY4Y97mu7 W5SEAwMKAdGFV0oDI6qA2b bGlnbjogbGVmdDsgdmVydG ljYWwtYWxp N445JXXfzEbrScGlTjOwIh A2XLD9L9YwDqi6XTNerCus HG7jhMDxBEtqIj6dlDgvwM kfYC4wCFZs hlnvVSYmgA6qEYNhoEVidL cnCQ6iVYEnjjklz390CxVg NWP0XCUnnMKqG4FwaK1iRa AjMDAwMDAw Y4MrfEGmMVzkI936YPkyEs Q6GLKquxPyW2BtHNUsoLsc CyI4e8Y0Lu97DBOXHUVmoj wvdGQ+PHRk RCV1yYqoNBnrPZMskI0xNG PoU2i4UsQnDpY3LBghB8Eb XGTenbrjMf94zY7uYjDgVc P0AIcyB4Ug ddX4IBKvjDBeDKrtJNX8C7 8vz4R7WOTiYUCiJFI6uLU0 qC9hlFxidfvnlSIzxXjday VydGljYWwt KRmwC096MSJzeBcwEyXmtX FsZTwvdGQ+TKCvNLM2vNbi ICnmXDIxyE3aQWFbD5d4Ub TbWfW5SNrl J6JlIURbzbxwVd92yV7iVn EmTtT0WUekP8LkzwL6POTz nIAuOEoaSVI9Y97dh9Z5MP MwMDAwMDA7 yBQ3qL6sfOetxgktaDYjdO ijieEfsOcgWNitDXflO934 ZZFboBalQx71pYGtcVvhmk O8Y0ZeVqdx dHI+YJ73CULiZP22dJAifR Bln1rnbPt7CqVzSXJjCMT7 vTujLYrem3YrNKGdC30anV Nlk8J9DQKq vWkunTZpQjGqhKD1sI5vKI uwuvkab2nklcigIhsqp3qr ei92hS18X58lSCulNRTsPN IzMCUiIHZh aVenta8vbZ9bMn9+PGNvbC L7xJF0cH1cQxObCiM7UFjr S434WfCujWIfDkhga3xvx2 jhmVg1ZhEs VKPxejYgpIvzRFE9c0HjNz 31H53eKBggTCAoLZEdFDCc NSPwpAuxhl7cnY3uEj4+PC 1zt9bmoq99 iM25hPF+MTEcZGO3oOzxIP wvTMVcoV9iCOaaZuY9FJWr XpOymP19jUKdFGmhZf0zgL akhTseVC5d ENWxtzxxg156HaXon4pdBR GiqZZdSAtzBJN5V29lw0L1 GAMaVDHsKLZ6gFK4kO2flD lnbjogbGVm dDsgdmVydGljYWwtYWxpZ2 52AVExeLzzFnGvxJImE5jx hpRPIH3rTghmyWJ+PHRkIH Z6nIybZXoy NEPzsH1lBFTwT3e7MrQdZi O2CNdmY2UqjvG0DRQlqVBd SATkxWHJlG5ythdpq2dsxa ogIzAwMDAw GXu0FTp7QKOobYzwOrAqSP J0StC6QQX4mMHfoD9nzOgm qvcrlF9tOxe+RklOOjwvdG Q+PHRkIHN0 nJfyHOkcRKJuaP2aRVOpA6 s1RuFgVgV6SJzfT2TnavY8 UYCcuYDwYGQveIMVlQ5kbf rvb2ffqfrl PmJrGRIdZSt0YTy9EXEmqW wdCbVrILZ0ElB5QZT7tKBk wS3kfGzunyzuuV7fGxp+TV JOOjwvdGQ+ CZCgBUA6xQgxZCwlJECqfX 6lGWMdG7r1TnZwJdJ5HWra W3LpjaC7IGTyaTIuTOJjjP SKwY7scnhl p1vpfbdjKpRmWAIgTPv7ST g6BCRxxDteHlOvUBO1MbS8 AFL4yTXcbC6dxQxxtchzwU 9wOyc+UGF5 RJS9UN67BR21K2ZdMvnaiU FibGU+PHRhYmxlIHdpZHRo HQaoCQLxYySqnRamBA2qPv 9yZGVyLWNv bGxhcHNlOiBjb (more content not included)... Normal [facility] Ambulatory Visit Summaryon 0 09-10-2023 Ambulatory Visit [...] Follow-Up Appointments Sunday 9:15 AM EDT With: Francisco Mckeon MD Where: [facility] Jose Martin Normal [facility] Family Medicine Office/Clini c Noteon 09-10-2023 Family Medicine [...] Daily, 16 gram, Refill(s) 0, each nostril, [facility]/pharmacy #[id number], 154, cm, 09/10/23 11:04:00 EDT, Height/Length Dosing, 64, kg, 09/10/23 11:04:00 EDT, Weight Dosing insulin glargine, See Instructions, 15 units sub q in the morning and 17 units sub q in the evening, # 15 mL, Refills(s) 3, Pharmacy: [facility]/pharmacy #[id number], 154, cm, 07/29/23 12:14:00 EDT, Height/Length [...] 1 tab(s), Oral, Once Flonase 0.05 mg/inh [place], 2 spray(s), Nasal, Daily Freestyle [place] Flash Glucose Monitoring 14 Day System (Sensor), See Instructions, 11 refills gabapentin 300 mg Cap, 300 mg= 1 cap(s), Oral, Once a day (at bedtime), 3 refills Lantus Solostar Pen, See Instructions levothyroxine 50 mcg (0.05 mg) Tab, 50 mcg= 1 tab(s), Oral, Daily, 3 refills losartan 50 m (more content not included)... Normal [facility] Comment on above: Result Comment: Elec tronically [...] numbers. This can be done either in [place] ([place] or metric measurements. Note that charts and online BMI calculators are available to help you find your BMI quickly and easily without having to do these calculations yourself. To calculate your BMI in [place] ([place] measurements: 1. Measure your weight in [...] for Disease Control and Prevention: www.cdc.gov ? [place] [employer]: www.heart.org ? National Heart, Lung, and Blood [place]: www.nhlbi.nih.gov Summary ? Body mass index (BMI) is a number that is calculated from a person's weight and height. ? BMI may help estimate how much of a person's weight is composed of fat. BMI can help identify those who may be at higher risk for certain medical problems. ? BMI can be measured using [place] measurements or metric measurements. ? BMI charts are used to identify whether you are underweight, normal weight, overweight, or obese. This information is not intended to replace advice given to you by your health care provider. Make sure you discuss any questions you have with your health care provider. Document Revised: 11/26/2019 Document Reviewed: 10/03/2019 [employer] Patient Education ? 2022 [employer] Normal [facility] BMPon 07-29-2023 Anion gap [Moles/Vol] 9 mmol/L Normal 6-16 [facility] Comment on above: Performed By: #### 1 [id number], 89813276, 1291868, 4730921, 1333670 ####[facility] [address] [place] [address] Calcium [Mass/Vol] 9.2 mg/dL Normal 8.9-11.1 [facility] Comment on above: Performed By: #### 1 5076141, 66826219, 0482865, 3255633, 6369500 ####[facility] [address] [place] [address] Chloride [Moles/Vol] 106 mmol/L Normal 101-111 [facility] Comment on above: Performed By: #### 1 2260451, 92327666, 3213202, 1109442, 7142430 ####[facility] [address] [place] [address] CO2 [Moles/Vol] 30 mmol/L Normal 21-31 [facility] Comment on above: Performed By: #### 1 7154672, 79620225, 4756193, 6825956, 4437487 ####[facility] [address] [place] [address] Creatinine [Mass/Vol] 0.8 mg/dL Normal 0.5-1.3 [facility] Comment on above: Performed By: #### 1 3990657, 92513883, 8303935, 0524434, 2979188 ####[facility] [address] [place] [address] Glucose [Mass/Vol] 153 mg/dL Normal 55-199 [facility] Comment on above: Performed By: #### 1 9070985, 22821121, 9403935, 3190543, 1960922 ####[facility] [address] [place] [address] Potassium [Moles/Vol] 3.7 mmol/L Normal 3.5-5.3 [facility] Comment on above: Performed By: #### 1 6024872, 45441328, 8352730, 5129059, 8530267 ####[facility] [address] [place] [address] Sodium [Moles/Vol] 141 mmol/L Normal 135-145 [facility] Comment on above: Performed By: #### 1 4794388, 27317352, 0420998, 8684155, 6822185 ####[facility] [address] [place] [address] Urea nitrogen [Mass/Vol] 21 mg/dL Normal 5-21 [facility] Comment on above: Performed By: #### 1 9849316, 44520009, 8535456, 2925330, 9308423 ####[facility] [address] [place] [address] Urea nitrogen/Creatinine [Mass ratio] 26 No Units High 10-20 [facility] Comment on above: Performed By: #### 1 3212729, 79698501, 1510531, 2570791, 0889322 ####[facility] [address] [place] [address] CBC w/ Auto Diffon 4 Basophils/100 WBC (Bld) 0.7 % Normal 0.0-2.0 [facility] Comment on above: Performed By: #### 1 3398453, 01688796, 0231235, 9886289, 2116851 ####[address] [address] Basophils/Leukocytes Auto (Bld) [Pure # fraction] 0.0 E9/L Normal 0.0-0.2 [facility] Comment on above: Performed By: #### 1 7588393, 79086258, 8606122, 1879563, 4422487 ####[address] [address] Eosinophils (Bld) [#/Vol] 0.2 E9/L Normal 0.0-0.5 [facility] Comment on above: Performed By: #### 1 0795035, 20799931, 9729227, 5176236, 4246455 ####[address] [address] Eosinophils/100 WBC (Bld) 4.1 % Normal 0.0-8.0 [facility] Comment on above: Performed By: #### 1 0875957, 44574041, 1618083, 7959995, 6030975 ####[address] [address] Erythrocyte distribution width (RBC) [Ratio] 13.3 % Normal 10.9-14.2 [facility] Comment on above: Performed By: #### 1 9652158, 02961529, 6132558, 5261148, 4870479 ####[address] [address] Hematocrit (Bld) [Volume fraction] 40.9 % Normal 34.0-46.0 [facility] Comment on above: Performed By: #### 1 8991526, 01912021, 7611521, 3755175, 7242396 ####[address] [address] Hemoglobin (Bld) [Mass/Vol] 14.1 g/dL Normal 12.0-16.0 [facility] Comment on above: Performed By: #### 1 0737870, 69435700, 2098527, 7565625, 0901187 ####[address] [address] Lymphocytes (Bld) [#/Vol] 1.3 E9/L Normal 1.0-4.0 [facility] Comment on above: Performed By: #### 1 7148464, 23114153, 5366022, 4792269, 3865201 ####[address] [address] Lymphocytes/100 WBC (Bld) 21.5 % Normal 14.0-50.0 [facility] Comment on above: Performed By: #### 1 1346460, 36179106, 6918974, 7841953, 6491775 ####[address] [address] MCH (RBC) [Entitic mass] 31.1 pg Normal 27.0-34.0 [facility] Comment on above: Performed By: #### 1 2968860, 80481064, 7724747, 6605515, 3087858 ####[address] [address] MCHC (RBC) [Mass/Vol] 34.5 g/dL Normal 31.4-36.0 [facility] Comment on above: Performed By: #### 1 3624466, 71988116, 8172530, 0526944, 4258103 ####[address] [address] MCV (RBC) [Entitic vol] 90.1 fL Normal 80.0-100.0 [facility] Comment on above: Performed By: #### 1 1271206, 42122552, 8153861, 3054633, 5296302 ####[address] [address] Monocytes (Bld) [#/Vol] 0.5 E9/L Normal 0.2-1.0 [facility] Comment on above: Performed By: #### 1 4522244, 31393373, 0544009, 6906809, 8986363 ####[address] [address] Neutrophils (Bld) [#/Vol] 3.8 E9/L Normal 2.0-7.5 [facility] Comment on above: Performed By: #### 1 9066689, 35746911, 0039151, 9716535, 3374021 ####[address] [address] Neutrophils/100 WBC (Bld) 64.6 % Normal 36.0-75.0 [facility] Comment on above: Performed By: #### 1 8169915, 72368120, 9076759, 4623878, 3736860 ####[address] [address] Platelet mean volume (Bld) [Entitic vol] 8.1 fL Normal 6.4-10.8 [facility] Comment on above: Performed By: #### 1 1861175, 60802536, 2503597, 4511577, 9888459 ####[address] [address] Platelets (Bld) [#/Vol] 168.0 E9/L Normal 150.0-500.0 [facility] Comment on above: Performed By: #### 1 1475553, 46828349, 2954520, 4948042, 9733822 ####[address] [address] RBC (Bld) [#/Vol] 4.5 E12/L Normal 4.3-5.9 [facility] Comment on above: Performed By: #### 1 4000378, 39987000, 4946302, 1759584, 3703963 ####[address] [address] WBC corrected for nucl RBC Auto (Bld) [#/Vol] 5.9 E9/L Normal 4.0-11.0 [facility] Comment on above: Performed By: #### 1 2662348, 12531811, 3124652, 3406253, 7015764 ####[facility] [address] 7124257 CHEMISTRYOrdered By: SYSTEM SYSTEM on 07-29-2023 Troponin [...] Instructions For Use, Willy Kendrick, October 2017) Albumin [Mass/Vol] 4.1 g/dL Normal [...] [facility] Comment on above: Interpretive Data: Ami rodriguez 95% CI (Confidence Interval) PPV (Positive Predictive Value) for myocardial infarction in females is 38 pg/mL, in males 51 pg/mL. The results should be used in conjunction with clinical conditions of myocardial infarction. (Access High Sensitivity Troponin I Instructions For Use, Willy [place], October 2017) Urea nitrogen [Mass/Vol] 21 mg/dL Normal 5 - 21 mg/dL [facility] Urea nitrogen/Creatinine [Mass ratio] 26 mg/mg High 10 - 20 [facility] Consent for Treatmenton 07-17 Consent for Treatment [id number] 0TIFF Normal [facility] Discharge Instructionson Discharge Instructions [id number] Normal [facility] ED Clinical Summaryon 2023 ED Clinical Summary [address] [address] ED Clinical Summary Person Information Name: RAFI ROPER [place] Age: 68 Years : 1955 Sex: Female Language: [place]ian PCP: Francisco Mckeon MD Marital Status: Visit Id: NAT: [id number] Visit Reason: Hypertension; HIGH BP Speciality: Acuity: [...] 07/29/2023 14:41:41 07/29/2023 14:41:41 07/29/2023 14:41:41 ADDRESS: [address] [place] [phone] PHYS DOC NOTES: MEDICAL INFORMATION: Prescriptions Given: [...] Follow up: With: Address: When: Janes Rivera [address] [place] [address] [phone] Business (1) In 3 days 08/01/2023 Comments: Make sure to take your blood pressure twice a day as instructed and when you have symptoms and follow-up with Dr. Rivera. Return to the emergency room if you develop chest pain, dizziness, headache or any new symptoms. With: Address: When: Francisco Mckeon In 3 days DIAGNOSIS: 1:Hypertension Normal [facility] ED Note-Physicianon 07-29-19 ED Note-Physician Basic Information [...] and Complexity of Problems Differential Diagnosis: [] [facility] Data External documents reviewed: [] My [...] Janes Rivera In 3 days 08/01/[address] [place] [address] [phone] Business (1) Additional Instructions: Make sure to take [...] (07/23/2019), Cholec (more content not included)... Normal [facility] Comment on above: Result Comment: Elec tronically Signed By: Sharda Joaquin, Alise Richardson\.br\Date and Time Signed: 07/29/23 15:34 EDT ED [...] oz glass (more content not included)... Normal [facility] ED Patient Summaryon 024 ED Patient Summary [address] [address] Patient Discharge Instructions Person Information Name: RAFI ROPER Age: 68 Years Arrival Date: 07/29/2023 11:47:41 Discharge Diagnosis: 1:Hypertension Primary Care Physician: Francisco Mckeon MD Provider Information Primary Provider: Alise Robin M.D. Advanced Nodulizer:None The exam and treatment you received in the Emergency Department were for an urgent problem and are not intended as complete care. It is important that you follow up with a doctor, nurse practitioner, or physician?s certified anesthesiologist assistant for ongoing care. If your symptoms become worse or you do not improve as expected and you are unable to reach your usual health care provider, you should return to the Emergency Department. We are available 24 hours a day. RAFI ROPER has been given the following list of patient education materials, prescriptions and follow-up instructions: Follow-up Instructions: With: Address: When: Janes Rivera [address] [place], [place] [phone] Business (1) In 3 days 08/01/2023 Comments: [...] opioids can be used to help relieve dnmbgbtf-xl-yugafv pain and are often prescribed following a [...] Visit www.cdc.gov/drugo (more content not included)... Normal [facility] HEMATOLOGYOrdered By: SYSTEM SYSTEM on 07-29-2023 Basophils/100 [...] 07-29-2023 Albumin [Mass/Vol] 4.1 g/dL Normal 3.3-5.0 [facility] Comment on above: Performed By: #### 1 1426288, 49289957, 1279857, 4296908, 3409300 ####[address] [place] [address] Albumin/Globulin (S) [Mass conc ratio] 2.0 Normal 1.1-2.2 [facility] Comment on above: Performed By: #### 1 2851808, 04719688, 8305523, 0896288, 9401898 ####[facility] [address] [place] [address] ALP [Catalytic activity/Vol] 75 Int._Unit/L Normal 21-98 [facility] Comment on above: Performed By: #### 1 [id number], [id number], 4870094, 1690852, 6165220 ####[address] [place] [address] ALT No additional P-5'-P [Catalytic activity/Vol] 46 Int._Unit/L Normal 6-46 [facility] Comment on above: Performed By: #### 1 [id number], [id number], 7437743, 6742781, 9304528 ####[address] [place] [address] AST [Catalytic activity/Vol] 28 Int._Unit/L Normal 5-43 [facility] Comment on above: Performed By: #### 1 [id number], 47076631, 9354966, 5775255, 6462778 ####[facility] [address] [place] [address] Bilirubin [Mass/Vol] 1.6 mg/dL High 0.0-1.1 [facility] Comment on above: Performed By: #### 1 [id number], 51391543, 5245503, 2615463, 0585999 ####[facility] [address] [place] [address] Bilirubin.direct [Mass/Vol] 0.1 mg/dL Normal 0.0-0.4 [facility] Comment on above: Performed By: #### 1 [id number], [id number], 8264077, 9653729, 2181110 ####[facility] [address] [place] [address] Bilirubin.indirect [Mass or moles/Vol] 1.5 mg/dL High 0.1-0.9 [facility] Comment on above: Performed By: #### 1 [id number], 39774900, 6328918, 4351491, 3197686 ####[facility] [address] [place] [address] Globulin (S) [Mass/Vol] 2.1 g/dL Normal 1.4-4.0 [facility] Comment on above: Performed By: #### 1 [id number], [id number], 3060655, 8538778, 6706059 ####[address] [address] Protein [Mass/Vol] 6.2 g/dL Normal 6.0-7.8 [facility] Comment on above: Performed By: #### 1 [id number], 05467493, 2531143, 9442486, 9123685 ####[address] [address] Troponin 0 Hr.on 07-29-2023 Troponin 3.70 pg/mL Low 10.10-27.10 [facility] Comment on above: Result Comment: The 95% CI (Confidence Interval) PPV (Positive Predictive Value) for myocardial infarction in females is 38 pg/mL, in males 51 pg/mL. The results should be used in conjunction with clinical conditions of myocardial infarction. (Access High Sensitivity Troponin I Instructions For Use, [employer], October 2017) Performed By: #### 1 [id number], 35602050, 3500175, 2465760, 9658079 ####[facility] [address] [place] [address] Troponin 1 Hr.on 07-29-2023 Troponin 4.60 pg/mL Low 10.10-27.10 [facility] Comment on above: Result Comment: The 95% CI (Confidence Interval) PPV (Positive Predictive Value) for myocardial infarction in females is 38 pg/mL, in males 51 pg/mL. The results should be used in conjunction with clinical conditions of myocardial infarction. (Access High Sensitivity Troponin I Instructions For Use, [employer], October 2017) Performed By: #### 1 [id number] ####[facility] [address] [place] [address] eGFRon 07-29-2023 eGFR 79 mL/min/1.73 m2 Normal >=59 [facility] Comment on above: Order Comment: Order added by Discern Expert. Performed By: #### 1 [id number], 08498452, 8763178, 3524441, 7524651 ####[address] [place] [address] Consent for Treatmenton 07-17 Consent for Treatment [id number] 0TIFF Normal [facility] ECG 12-Leadon 07-27-2023 ECG 12-Lead [id number]#1.0 0TIFF Normal [facility] Heart and Vascular Office/Cl inic Noteon [...] artery bypass grafting surgery in 2020 at [facility]. At that time, she presented with non-ST [...] earlier if clinically indicated 1. CAD in eek artery (I25.10: Atherosclerotic heart disease of eek coronary artery without angina pectoris) 2. Dyslipidemia [...] Freestyle Lokesh F (more content not included)... Normal [facility] Comment on above: Result Comment: Elec tronically Signed By: Miguel SHANNON, Janes Hubbard\.br\Date and Time Signed: 07/27/23 11:07 EDT Physician Orderon 07-27-2023 Physician Order [id number] 0TIFF [facility] Ambulatory Visit Summaryon 0 07-16-2023 Ambulatory Visit Summary RAFI ROPER :1955 Visit Date:07/16/2023 Ambulatory Visit Instructions Your Care Team Attending Physician - Francisco Mckeon MD Primary Care Physician - Francisco Mckeon MD This Is Your Medications List Misc Prescription ([employer] Lokesh Flash Glucose Monitoring 14 Day System [...] With: Janes Rivera MD Where: [facility] Sunday 9:15 AM EDT With: Francisco Mckeon MD Where: [facility] [place] [facility] Office/Clini c Noteon 07-16-2023 Family Medicine [...] day(s), # 6 tab(s), Refills(s) 0, Pharmacy: [facility]/pharmacy #[id number], 154.4, cm, 07/16/23 8:58:00 EDT, Height/Length Dosing, 62.8, kg, 07/16/23 8:58:00 EDT, Weight Dosing methylPREDNISolone, = 1 packet(s), Oral, As Directed, as directed on package labeling, X 6 day(s), # 21 tab(s), Refills(s) 0, Pharmacy: [facility]/pharmacy #[id number], 154.4, cm, 07/16/23 8:58:00 EDT, Height/Length [...] Oral, Ada (more content not included)... Normal [facility] Comment on above: Result Comment: Elec tronically Signed By: Mervin SHANNON, Francisco Rudd.br\Date and Time Signed: 07/16/23 09:18 EDT Patient [...] numbers. This can be done either in [place] ([place] or metric measurements. Note that charts and online BMI calculators are available to help you find your BMI quickly and easily without having to do these calculations yourself. To calculate your BMI in [place]ian ([place] measurements: 1. Measure your weight in [...] for Disease Control and Prevention: www.cdc.gov ? [place] [employer]: www.heart.org ? National Heart, Lung, and Blood [place]: www.nhlbi.nih.gov Summary ? Body mass index (BMI) is a number that is calculated from a person's weight and height. ? BMI may help estimate how much of a person's weight is composed of fat. BMI can help identify those who may be at higher risk for certain medical problems. ? BMI can be measured using [place]ian measurements or metric measurements. ? BMI charts are used to identify whether you are underweight, normal weight, overweight, or obese. This information is not intended to replace advice given to you by your health care provider. Make sure you discuss any questions you have with your health care provider. Document Revised: 11/26/2019 Document Reviewed: 10/03/2019 [employer] Patient Education ? 2022 [email or web address]. [facility] Auth for Release of Medical Recordson 07-09-2023 Auth for Release of Medical Records [id number]#[id number] 0TIFF [facility] Ambulatory Visit Summaryon 0 07-03-2023 Ambulatory Visit [...] EDT With: Mervin SHANNON, Francisco Terrell Where: [facility] Family Medicine Jose Martin Normal [facility] CBC w/ Auto Diffon 4 Basophils/100 WBC (Bld) 0.9 % Normal 0.0-2.0 [facility] Comment on above: Performed By: #### 2 840532, 61080197, 970894439, 5381736, 6680712 #### [facility] [address] [place] [address] Basophils/Leukocytes Auto (Bld) [Pure # fraction] 0.0 E9/L Normal 0.0-0.2 [facility] Comment on above: Performed By: #### 2 945163, 36019083, 909542992, 7255188, 7845805 #### [facility] [address] [place] [address] Eosinophils (Bld) [#/Vol] 0.2 E9/L Normal 0.0-0.5 [facility] Comment on above: Performed By: #### 2 841745, 57898583, 573138706, 9915991, 4551780 #### [facility] [address] [place] [address] Eosinophils/100 WBC (Bld) 4.8 % Normal 0.0-8.0 [facility] Comment on above: Performed By: #### 2 159767, 78712319, 455221395, 2835962, 0597465 #### [facility] [address] [place] [address] Erythrocyte distribution width (RBC) [Ratio] 14.1 % Normal 10.9-14.2 [facility] Comment on above: Performed By: #### 2 307630, 98289144, 153337312, 7977883, 7584326 #### [facility] [address] [place] [address] Hematocrit (Bld) [Volume fraction] 40.0 % Normal 34.0-46.0 [facility] Comment on above: Performed By: #### 2 051751, 54888091, 247020559, 2129455, 1921836 #### [facility] [address] [place] [address] Hemoglobin (Bld) [Mass/Vol] 13.3 g/dL Normal 12.0-16.0 [facility] Comment on above: Performed By: #### 2 092564, 39511213, 835911352, 3424320, 9304703 #### [facility] [address] [place] [address] Lymphocytes (Bld) [#/Vol] 1.1 E9/L Normal 1.0-4.0 [facility] Comment on above: Performed By: #### 2 920728, 41220520, 012958284, 0785983, 4118233 #### [facility] [address] [place], [place] [id number] Lymphocytes/100 WBC (Bld) 20.9 % Normal 14.0-50.0 [facility] Comment on above: Performed By: #### 2 228673, 41613629, 587728902, 9079099, 5895553 #### [facility] [address] [place] [address] MCH (RBC) [Entitic mass] 30.2 pg Normal 27.0-34.0 [facility] Comment on above: Performed By: #### 2 123908, 85050587, 886477611, 6526836, 4298077 #### [facility] [address] [place] [address] MCHC (RBC) [Mass/Vol] 33.3 g/dL Normal 31.4-36.0 [facility] Comment on above: Performed By: #### 2 774839, 41186449, 027812696, 2441532, 1135376 #### [facility] [address] [place] [address] MCV (RBC) [Entitic vol] 90.7 fL Normal 80.0-100.0 [facility] Comment on above: Performed By: #### 2 522195, 37755603, 726328999, 6738562, 1152160 #### [facility] [address] [place] [address] Monocytes (Bld) [#/Vol] 0.4 E9/L Normal 0.2-1.0 [facility] Comment on above: Performed By: #### 2 864013, 23980716, 801326320, 0593996, 6764184 #### [facility] [address] [place] [address] Neutrophils (Bld) [#/Vol] 3.3 E9/L Normal 2.0-7.5 [facility] Comment on above: Performed By: #### 2 008270, 04141802, 066321064, 1558494, 3193078 #### [facility] [address] [place] [address] Neutrophils/100 WBC (Bld) 65.7 % Normal 36.0-75.0 [facility] Comment on above: Performed By: #### 2 898848, 00911937, 880235927, 5007624, 3606660 #### [facility] [address] [place] [address] Platelet 158.0 E9/L Normal 150.0-500.0 [facility] Comment on above: Performed By: #### 2 668442, 07208669, 919383667, 4662462, 6519354 #### [facility] [address] [place] [address] Platelet mean volume (Bld) [Entitic vol] 8.5 fL Normal 6.4-10.8 [facility] Comment on above: Performed By: #### 2 031909, 22503457, 282619059, 5015136, 2778155 #### [facility] [address] [place] [address] RBC (Bld) [#/Vol] 4.4 E12/L Normal 4.3-5.9 [facility] Comment on above: Performed By: #### 2 522935, 48357556, 517072406, 0134955, 4355259 #### [facility] [address] [place] [address] WBC corrected for nucl RBC Auto (Bld) [#/Vol] 5.1 E9/L Normal 4.0-11.0 [facility] Comment on above: Performed By: #### 2 915374, 50783452, 243896020, 9399773, 1792383 #### [facility] [address] [place] [address] CHEMISTRYOrdered By: SYSTEM SYSTEM on 07-03-2023 Albumin [...] (Bld) [Mass fraction] 7.0 % High <=5.9% [facility] ChemAutoSS CMPon 07-03-2023 Albumin [Mass/Vol] 4.0 g/dL Normal 3.3-5.0 [facility] Comment on above: Performed By: #### 2 390972, 88891824, 121945508, 3825058, 8662161 #### [facility] [address] [place] [address] Albumin/Globulin (S) [Mass conc ratio] 1.9 Normal 1.1-2.2 [facility] Comment on above: Performed By: #### 2 673134, 62315368, 598393351, 1199335, 5571528 #### [facility] [address] [place] [address] ALP [Catalytic activity/Vol] 71 Int._Unit/L Normal 21-98 [facility] Comment on above: Performed By: #### 2 926460, 85175327, 062198155, 8994003, 9894857 #### [facility] [address] [place] [address] ALT No additional P-5'-P [Catalytic activity/Vol] 65 Int._Unit/L High 6-46 [facility] Comment on above: Performed By: #### 2 736036, 28895068, 712488921, 2102787, 8021077 #### [facility] [address] [place] [address] Anion gap [Moles/Vol] 11 mmol/L Normal 6-16 [facility] Comment on above: Performed By: #### 2 861990, 58300121, 169261753, 8847727, 1852179 #### [facility] [address] [place] [address] AST [Catalytic activity/Vol] 43 Int._Unit/L Normal 5-43 [facility] Comment on above: Performed By: #### 2 539478, 69170329, 451791664, 1009433, 4075749 #### [facility] [address] [place] [address] Bilirubin [Mass/Vol] 1.9 mg/dL High 0.0-1.1 [facility] Comment on above: Performed By: #### 2 460055, 42395662, 666757546, 1769442, 5678955 #### [facility] [address] [place] [address] Calcium [Mass/Vol] 9.8 mg/dL Normal 8.9-11.1 [facility] Comment on above: Performed By: #### 2 344477, 11921211, 693201955, 5557247, 7863680 #### [facility] [address] [place] [address] Chloride [Moles/Vol] 105 mmol/L Normal 101-111 [facility] Comment on above: Performed By: #### 2 247851, 78190257, 948667660, 9190775, 0574188 #### [facility] [address] [place] [address] CO2 [Moles/Vol] 30 mmol/L Normal 21-31 [facility] Comment on above: Performed By: #### 2 704122, 09583654, 202945242, 0167045, 4574955 #### [facility] [address] [place] [address] Creatinine [Mass/Vol] 0.8 mg/dL Normal 0.5-1.3 [facility] Comment on above: Performed By: #### 2 599048, 11600489, 142618031, 1793028, 3668294 #### [facility] [address] [place] [address] Globulin (S) [Mass/Vol] 2.1 g/dL Normal 1.4-4.0 [facility] Comment on above: Performed By: #### 2 815820, 02312246, 113533216, 1844033, 4281877 #### [facility] [address] [place] [address] Glucose [Mass/Vol] 140 mg/dL Normal 55-199 [facility] Comment on above: Performed By: #### 2 634025, 35523359, 507650810, 9736361, 5645397 #### [facility] [address] [place] [address] Potassium [Moles/Vol] 4.0 mmol/L Normal 3.5-5.3 [facility] Comment on above: Performed By: #### 2 829097, 62935451, 019037398, 2972394, 6883332 #### [facility] [address] [place] [address] Protein [Mass/Vol] 6.1 g/dL Normal 6.0-7.8 [facility] Comment on above: Performed By: #### 2 599485, 25980235, 892264875, 9495896, 3200306 #### [facility] [address] [place] [address] Sodium [Moles/Vol] 142 mmol/L Normal 135-145 [facility] Comment on above: Performed By: #### 2 323934, 53491749, 775215366, 0162290, 8808356 #### [facility] [address] [place] [address] Urea nitrogen [Mass/Vol] 31 mg/dL High 5-21 [facility] Comment on above: Performed By: #### 2 982135, 25440616, 576759878, 7542828, 7062917 #### [facility] [address] [place] [address] Urea nitrogen/Creatinine [Mass ratio] 39 No Units High 10-20 [facility] Comment on above: Performed By: #### 2 380241, 86859705, 808788881, 5303539, 6253157 #### [facility] [address] [place] [address] Family Medicine Office/Clini c Noteon 07-03-2023 Family Medicine Office/Clinic Note HPI Staff Rafi is a 68 year old female presenting for 3 month follow up DM, HTN with labs especially A1C Do you have any of the following symptoms? Foot Exam: UTD Eye Exam: UTD Sees Dr Fiore Last A1C: Hgb A1C %: 7.1 % [...] CBC w/ Auto Diff Comprehensive Metabolic Panel [facility] Internal Ambulatory Referral [facility] Internal Ambulatory Referral HgbA1c Lipid Panel Microalbumin Level Urine U Protein/Creat Ratio 2. Type 2 diabetes mellitus with hyperlipidemia (E11.69: Type 2 diabetes mellitus with other specified complication) - Will check labs. - No issues. - Doing well. Ordered: CBC w/ Auto Diff Comprehensive Metabolic Panel [facility] Internal Ambulatory Referral [facility] Internal Ambulatory Referral HgbA1c Lipid Panel Microalbumin Level Urine U Protein/Creat Ratio 3. Diabetic neuropathy (E11.40: Type 2 diabetes mellitus with diabetic neuropathy, unspecified) - Stable. - No change Ordered: CBC w/ Auto Diff Comprehensive Metabolic Panel [facility] Internal Ambulatory Referral [facility] Internal Ambulatory Referral HgbA1c Lipid Panel Microalbumin Level Urine U Protein/Creat Ratio 4. 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 Ordered: CBC w/ Auto Diff Comprehensive Metabolic Panel [facility] Internal Ambulatory Referral [facility] Internal Ambulatory Referral HgbA1c Lipid Panel Microalbumin Level Urine U Protein/Creat Ratio 5. Colon cancer screening (Z12.11: Encounter for screening for malignant neoplasm of colon) - Will refer for colonoscopy Ordered: CBC w/ Auto Diff Comprehensive Metabolic Panel [facility] Internal Ambulatory Referral [facility] Internal Ambulatory Referral HgbA1c Lipid Panel Microalbumin [...] DAY, # 90 tab(s), Refills(s) 0, Pharmacy: [facility]/pharmacy #[id number], 154.4, cm, 07/03/23 10:36:00 EDT, Height/Length Dosing, 63.1, kg, 07/03/23 10:36:00 EDT, Weight Dosing Misc Prescription, Freestyle [place] Flash Glucose Monitoring 14 Day System (Sensor), See Instructions, 6 EA, 11, Freestyle [place] 2 Flash Glucose Monitoring 14 Day System (Sensor). Replace sensor every 14 days., [facility]/pharmacy #[id number], Supply, 154.4, cm, 07/03/23 10:36:00 EDT... [...] Freestyle Lindsay (more content not included)... Normal [facility] Comment on above: Result Comment: Elec tronically Signed By: Mervin SHANNON, Francisco Rudd.br\Date and Time Signed: 07/03/23 10:57 EDT HEMATOLOGYOrdered [...] Normal 4.0 - 11.0 E9/L Remisol Heme [id number] 07-03-2023 HbA1c (Bld) [Mass fraction] 7.0 % High <=5.9 [facility] Comment on above: Performed By: #### 2 118956, 97567618, 667563706, 3171409, 1376710 ####[facility] [address] [place] [address] Lipid Panelon 07-03-2023 Cholesterol [Mass/Vol] 152 mg/dL Normal 120-200 [facility] Comment on above: Performed By: #### 2 022502, 02272476, 051258248, 4431053, 6847214 #### [facility] [address] [place] [address] Cholesterol in HDL [Mass/Vol] 50 mg/dL Invalid Interpretation Code [facility] Comment on above: Result Comment: '>= 60 LOW RISK' '<= 40 HIGH RISK' Performed By: #### 2 502097, 29715184, 122876579, 6021179, 4872186 #### [facility] [address] [place] [address] Cholesterol in LDL [Mass/Vol] 84 mg/dL Normal <=129 [facility] Comment on above: Performed By: #### 2 111069, 47597354, 454300142, 7849678, 6829773 #### [facility] [address] [place] [address] Cholesterol in VLDL [Mass/Vol] 25 mg/dL Normal 7-40 [facility] Comment on above: Performed By: #### 2 450913, 88463810, 990502246, 0473768, 7500301 #### [facility] [address] [place] [address] Triglyceride [Mass/Vol] 127 mg/dL Normal <=149 [facility] Comment on above: Performed By: #### 2 738113, 82132866, 566903888, 8402362, 3721893 #### [facility] [address] [place] [address] Physician Referralon 024 Physician Referral [id number] 02 [id number]. 00TIFF Normal [facility] U Microalbon 07-03-2023 Albumin DL <= 20 mg/L (U) [Mass/Vol] 1.2 mg/dL Normal 0.0-1.9 [facility] Comment on above: Performed By: #### 1 [id number], 40226695 ####[facility] [address] [place] [address] U Protein/Creat Ratioon 06-17 Protein/Creatinine (U) [Ratio] 7.70 mg/gm Cr Normal .00-200.00 [facility] Comment on above: Performed By: #### 1 [id number], 78353137 ####[facility] [address] [place] [address] U Creatinine 129.9 mg/dL Invalid Interpretation Code [facility] Comment on above: Performed By: #### 1 390075041, 59491202 ####[facility] [address] [place] [address] Ur Total Protein 10.0 mg/dL Invalid Interpretation Code [facility] Comment on above: Performed By: #### 1 922429878, 66229571 ####[facility] [address] [place] [address] eGFRon 07-03-2023 eGFR 79 mL/min/1.73 m2 Normal >=59 [facility] Comment on above: Order Comment: Order added by Discern Expert. Performed By: #### 2 220138, 22679318, 787118211, 0569859, 8422922 #### [facility] [address] [place] [address] Ambulatory Visit Summaryon 0 04-23-2023 Ambulatory Visit Summary RAFI ROPER :1955 Visit Date:04/23/2023 Ambulatory Visit Instructions Your Care Team Attending Physician - Francisco Mckeon MD Primary Care Physician - Francisco Mckeon MD This Is Your Medications List Misc Prescription (Freestyle [place] 2 Sensor) Misc Prescription (Freestyle [place] 3 Flash Glucose Monitoring 14 Day System ([place])) Misc Prescription (Freestyle [place] 3 Flash Glucose [...] AM EDT With: Francisco Mckeon MD Where: [facility] Family Medicine Jose Martin Normal [facility] Family Medicine Office/Clini c Noteon 04-23-2023 Family [...] constipation, # 180 cap(s), Refills(s) 1, Pharmacy: [facility]/pharmacy #[id number], 154.5, cm, 09/11/22 10:05:00 EDT, Height/Length Dosing, 63, kg, 09/11/22 10:05:00 EDT, Weight Dosing semaglutide, See Instructions, INJECT 0.25 MG SUBCUTANEOUSLY EVERY WEEK, # 3 Unspecified/Unknown, Refills(s) 0, Pharmacy: [facility], 154.4, cm, 01/25/23 9:05:00 EST, Height/Length Dosing, [...] 3 Flash Glucose Monitoring 14 Day System ([place]), See Instructions Freestyle [place]okes[place] 3 Flash Glucose [...] virus vaccine, inactivated 12/20/2021 Recorded SARS-CoV-2 (COVID-19) [id number] 11/28/2021 Recorded 2022-06-29: TPV65 influenza virus vaccine, inactivated 11/23/2021 Recorded SARS-CoV-2 (COVID-19) mRNA-1273 vaccine 06/29/2021 Recorded SARS-CoV-2 (COVID-19) mRNA-1273 vaccine 01/08/2021 Recorded 2022-06-29: TPV60 influenza virus vaccine, inactivated 12/04/2020 (more content not included)... Normal [facility] Comment on above: Result Comment: Elec tronically Signed By: Mervin SHANNON, Francisco Terrell\.br\Date and Time Signed: 04/23/23 09:46 EST Patient Educationon 04-23-19 Patient Education Cardiovascular Atherosclerosis Atherosclerosis is when [...] artery (jaycee (more content not included)... Normal [facility] Ambulatory Visit Summaryon 0 04-03-2023 Ambulatory Visit [...] MD Primary Care Physician - Francisco Mckeon MD. This Is Your Medications List Misc Prescription [...] EDT With: Mervin SHANNON, Francisco Terrell Where: [facility] Normal [facility] Family Medicine Office/Clini c Noteon 04-03-2023 Family [...] 3 Flash Glucose Monitoring 14 Day System ([place]), See Instructions, 1 EA, 0, Freestyle [place] Flash Glucose Monitoring 14 Day System ([place]), [id number], Supply, 154.4, cm, 04/03/23 10:00:00 [...] 3 Flash Glucose Monitoring 14 Day System ([place]), See Instructions, 1 EA, 0, Freestyle [place] Flash Glucose Monitoring 14 Day System ([place]), [facility], Supply, 154.4, cm, 04/03/23 10:00:00 [...] 3 Flash Glucose Monitoring 14 Day System ([place]), See Instructions, 1 EA, 0, Freestyle [place] Flash Glucose Monitoring 14 Day System ([place]), [facility], Supply, 154.4, cm, 04/03/23 10:00:00 [...] 3 Flash Glucose Monitoring 14 Day System ([place]), See Instructions, 1 EA, 0, Freestyle [place] Flash Glucose Monitoring 14 Day System ([place]), [facility], Supply, 154.4, cm, 04/03/23 10:00:00 EST, Height/Length Dosing, 64.3, kg... Misc Prescription, Freestyle [place] 3 Flash Glucose Monitoring 14 Day System (Sensor), See Instructions, 2 EA, 0, F (more content not included)... Normal [facility] Comment on above: Result Comment: Elec tronically Signed By: Mervin SHANNON, Francisco Terrell\.br\Date and Time Signed: 04/03/23 11:07 EST Ambulatory [...] AM EST With: Francisco Mckeon MD Where: [facility] [place] Normal [facility] Ambulatory Visit Summary RAFI ROPER [...] AM EST With: Francisco Mckeon MD Where: [facility] Medicine Jose Martin Normal [facility] Medicine Office/Clini c Noteon 03-01-2023 [facility] Medicine Office/Clinic Note HPI Staff Rafi is [...] bedtime), # 90 cap(s), Refills(s) 3, [facility] 154.4, cm, 03/01/23 15:22:00 EST, Height/Length Dosing, 62.7, kg, 03/01/23 15:22:00 EST, Weight Dosing gabapentin, 300 mg = 1 cap(s), Oral, Once a day (at bedtime), # 90 cap(s), Refills(s) 3, [id number], 154.5, cm, 09/11/22 10:05:00 EDT, Height/Length [...] bedtime), # 90 cap(s), Refills(s) 3, [facility], 154.4, cm, 03/01/23 15:22:00 EST, Height/Length Dosing, 62.7, kg, 03/01/23 15:22:00 EST, Weight Dosing gabapentin, 300 mg = 1 cap(s), Oral, Once a day (at bedtime), # 90 cap(s), Refills(s) 3, [id number], 154.5, cm, 09/11/22 10:05:00 EDT, Height/Length [...] bedtime), # 90 cap(s), Refills(s) 3, [facility], 154.4, cm, 03/01/23 15:22:00 EST, Height/Length Dosing, 62.7, kg, 03/01/23 15:22:00 EST, Weight Dosing gabapentin, 300 mg = 1 cap(s), Oral, Once a day (at bedtime), # 90 cap(s), Refills(s) 3, [facility], 154.5, cm, 09/11/22 10:05:00 EDT, Height/Length Dosing, 63, kg, 09/11/22 10:05:00 EDT, Weight Dosing Orders: cefuroxime, 500 mg = 1 tab(s), Oral, BID, X 7 day(s), # 14 tab(s), Refills(s) 0, [id number], 154.4, cm, 03/01/23 15:22:00 EST, Height/Length Dosing, 62.7, kg, 03/01/23 15:22:00 EST, Weight Dosing Follow-up No aaron (more content not included)... Normal [facility] Comment on above: Result Comment: Elec tronically Signed By: Sunny SMITH, Carolyn Crane\.br\Date and Time Signed: 03/01/23 15:38 EST Patient Logson 02-14-2023 Patient Logs [id number] 10 [id number] 0TIFF Normal [facility] ED Note-Physicianon 02-14-20 ED Note-Physician [id number] 10 [id number]#1.0 0TIFF Normal [facility] Medicine Office/Clini c Noteon 02-13-2023 Family Medicine Office/Clinic Note HPI Staff Rafi is a 68 year old female presenting for ER follow up ER followup: Hospital: [facility] Visit date: 02/12/23 Symptoms the patient presented [...] virus vaccine, inactivated 12/20/2021 Recorded SARS-CoV-2 (COVID-19) mRNAMUL.ORD![id number] 11/28/2021 Recorded 2022-06-29: TPV65 (more content not included)... Normal [facility] Comment on above: Result Comment: Elec tronically Signed By: Mervin SHANNON, Francisco Terrell\.br\Date and Time Signed: 02/13/23 14:41 EST RAD - MISCon 02-13-2023 RAD - MISC [id number] Normal [facility] FREE T3on 05-15-2022 FREE T3 2.00 pg/mlL Critically low 2.18-3.98 [facility] Comment on above: Performed By: #### F T3, TSH, BMP #### [facility] [address] [place] [address] Dr. Mikayla Haines FREE T4on 05-15-2022 Free T4 [Mass/Vol] 1.13 ng/dL Normal 0.76-1.46 [facility] Comment on above: Performed By: #### F T4 #### [facility] [address] [place] [address] Dr. Mikayla Haines GLYCOHEMOGLOBIN A1Con 2022 ADA RECOMMENDATION SEE BELOW Normal [facility] Comment on above: Result Comment: ADA RECOMMENDED LIMIT 4.0 - 6.0 ADA THERAPEUTIC TARGET < 7.0 ACTION SUGGESTED > 7.0 Performed By: #### A 1C #### [facility] [address] [place] [address] Dr. Mikayla Haines Glucose [Mass/Vol] 140 mg/dL Normal [facility] Comment on above: Performed By: #### A 1C #### [facility] [address] [place] [address] Dr. Mikayla Haines HbA1c (Bld) [Mass fraction] 6.5 % Critically high 4.5-6.2 [facility] Comment on above: Performed By: #### A 1C #### [facility] [address] [place] [address] Dr. Mikayla Haines PROF CHEM 8 (BAS METB)on Anion gap [Moles/Vol] 7.7 mmol/L Normal [facility] Comment on above: Performed By: #### F T3, TSH, BMP #### [facility] [address] [place] [address] Dr. Mikayla Haines Calcium [Mass/Vol] 9.2 mg/dL Normal 8.5-10.1 [facility] Comment on above: Performed By: #### F T3, TSH, BMP #### [facility] [address] [place] [address] Dr. Mikayla Haines Chloride [Moles/Vol] 102 mmol/L Normal 98-107 [facility] Comment on above: Performed By: #### F T3, TSH, BMP #### [facility] [address] [place] [address] Dr. Mikayla Haines CO2 [Moles/Vol] 33.1 mmol/L Critically high 21.0-32.0 [facility] Comment on above: Performed By: #### F T3, TSH, BMP #### [facility] [address] [place] [address] Dr. Mikayla Haines Creatinine [Mass/Vol] 0.62 mg/dL Normal 0.55-1.02 [facility] Comment on above: Performed By: #### F T3, TSH, BMP #### [facility] [address] [address] [address] Mikayla Haines EGFR-AF NIGERIAN >116 Normal >=[address] [facility] Comment on above: Performed By: #### F T3, TSH, BMP #### [facility] [address] [address] [address] Mikayla Haines EGFR-NON AF NIGERIAN >95 Normal >=60 [facility] Comment on above: Performed By: #### F T3, TSH, BMP #### [facility] [address] [address] [address] Mikayla Haines Glucose [Mass/Vol] 182 mg/dL Critically high 74-106 [facility] Comment on above: Performed By: #### F T3, TSH, BMP #### [facility] [address] [address] [address] Mikayla Haines Potassium [Moles/Vol] 3.8 mmol/L Normal 3.5-5.1 [facility] Comment on above: Performed By: #### F T3, TSH, BMP #### [facility] [address] [address] [address] Mikayla Haines Sodium [Moles/Vol] 139 mmol/L Normal 136-145 [facility] Comment on above: Performed By: #### F T3, TSH, BMP #### [facility] [address] [address] [address] Mikayla Haines Urea nitrogen [Mass/Vol] 25.0 mg/dL Critically high 7.0-18.0 [facility] Comment on above: Performed By: #### F T3, TSH, BMP #### [facility] [address] [address] [address] Mikayla Haines Urea nitrogen/Creatinine [Mass ratio] 40.3 mg/mg Normal [facility] Comment on above: Performed By: #### F T3, TSH, BMP #### [facility] [address] [place] [address] Dr. Mikayla Haines TSHon 05-15-2022 TSH 1.499 uIU/mL Normal 0.358-3.740 [facility] Comment on above: Performed By: #### F T3, TSH, BMP #### [facility] [address] [place] [address] Dr. Mikayla Haines BNPon 04-23-2022 Natriuretic peptide B (Bld) [Mass/Vol] 409.0 pg/mL Normal <=900.0 [facility] Comment on above: Performed By: #### F T3, TSH, BMP #### [facility] [address] [place] [address] Dr. Mikayla Haines CBC AUTO DIFFon 04-23-2022 BASO # 0.0 103/ul Normal 0.0-0.1 [facility] Comment on above: Performed By: #### F T3, TSH, BMP #### [facility] [address] [place] [address] Dr. Mikayla Haines Basophils/100 WBC (Bld) 0.5 % Normal 0.2-2.0 [facility] Comment on above: Performed By: #### F T3, TSH, BMP #### [facility] [address] [place] [address] Dr. Mikayla Haines EO # 0.3 103/ul Normal 0.0-0.7 [facility] Comment on above: Performed By: #### F T3, TSH, BMP #### [facility] [address] [place] [address] Dr. Mikayla Haines Eosinophils/100 WBC (Bld) 6.3 % Normal 0.9-7.0 [facility] Comment on above: Performed By: #### F T3, TSH, BMP #### [facility] [address] [place] [address] Dr. Mikayla Haines Erythrocyte distribution width (RBC) [Ratio] 12.7 % Normal 11.0-15.0 [facility] Comment on above: Performed By: #### F T3, TSH, BMP #### [facility] [address] [place] [address] Dr. Mikayla Haines Hematocrit (Bld) [Volume fraction] 38.3 % Normal 36.0-48.0 [facility] Comment on above: Performed By: #### F T3, TSH, BMP #### [facility] [address] [place] [address] Dr. Mikayla Haines Hemoglobin (Bld) [Mass/Vol] 12.6 g/dL Normal 12.0-16.0 [facility] Comment on above: Performed By: #### F T3, TSH, BMP #### [facility] [address] [place] [address] Dr. Mikayla Haines IG # 0.01 10e3/ul Normal 0.00-0.03 [facility] Comment on above: Performed By: #### F T3, TSH, BMP #### [facility] [address] [place] [address] Dr. Mikayla Haines IG % 0.3 % Normal 0.0-0.5 [facility] Comment on above: Performed By: #### F T3, TSH, BMP #### [facility] [address] [place] [address] Dr. Mikayla Haines LYMPH # 1.2 103/ul Normal 1.2-3.8 [facility] Comment on above: Performed By: #### F T3, TSH, BMP #### [facility] [address] [place] [address] Dr. Mikayla Haines Lymphocytes/100 WBC (Bld) 30.4 % Normal 20.5-60.0 [facility] Comment on above: Performed By: #### F T3, TSH, BMP #### [facility] [address] [place] [address] Dr. Mikayla Haines MANUAL DIFF REQ NO Normal [facility] Comment on above: Performed By: #### F T3, TSH, BMP #### [facility] [address] [place] [address] Dr. Mikayla Haines MCH (RBC) [Entitic mass] 30.4 pg Normal 26.7-34.0 [facility] Comment on above: Performed By: #### F T3, TSH, BMP #### [facility] [address] [place] [address] Dr. Mikayla Haines MCHC (RBC) [Mass/Vol] 32.9 g/dL Normal 29.9-35.2 [facility] Comment on above: Performed By: #### F T3, TSH, BMP #### [facility] [address] [place] [address] Dr. Mikayla Haines MCV (RBC) [Entitic vol] 92.5 fL Normal 81.0-99.0 [facility] Comment on above: Performed By: #### F T3, TSH, BMP #### [facility] [address] [place] [address] Dr. Mikayla Haines MONO # 0.5 103/ul Normal 0.3-0.8 [facility] Comment on above: Performed By: #### F T3, TSH, BMP #### [facility] [address] [place] [address] Dr. Mikayla Haines Monocytes/100 WBC (Bld) 11.4 % Normal 1.7-12.0 [facility] Comment on above: Performed By: #### F T3, TSH, BMP #### [facility] [address] [place] [address] Dr. Mikayla Haines NEUT # 2.0 103/ul Normal 1.4-6.5 [facility] Comment on above: Performed By: #### F T3, TSH, BMP #### [facility] [address] [place] [address] Dr. Mikayla Haines Neutrophils/100 WBC (Bld) 51.1 % Normal 43.0-75.0 [facility] Comment on above: Performed By: #### F T3, TSH, BMP #### [facility] [address] [place] [address] Dr. Mikayla Haines Platelet mean volume (Bld) [Entitic vol] 10.5 fL Normal 9.5-13.5 [facility] Comment on above: Performed By: #### F T3, TSH, BMP #### [facility] [address] [place] [address] Dr. Mikayla Haines PLT 166 103/ul Normal 150-450 [facility] Comment on above: Performed By: #### F T3, TSH, BMP #### [facility] [address] [address] [address] Mikayla Haines RBC 4.14 106/ul Critically low 4.20-5.40 [facility] Comment on above: Performed By: #### F T3, TSH, BMP #### [facility] [address] [address] [address] Mikayla Haines WBC 4.0 103/ul Normal 4.0-11.0 [facility] Comment on above: Performed By: #### F T3, TSH, BMP #### [facility] [address] [place] [address] Dr. Mikayla Haines FREE T3on 04-23-2022 FREE T3 2.07 pg/mlL Critically low 2.18-3.98 [facility] Comment on above: Performed By: #### M G, BMP #### [facility] [address] [place] [address] Dr. Mikayla Haines FREE T4on 04-23-2022 Free T4 [Mass/Vol] 0.87 ng/dL Normal 0.76-1.46 [facility] Comment on above: Performed By: #### F T3, TSH, BMP #### [facility] [address] [place] [address] Dr. Mikayla Haines MAGNESIUMon 04-23-2022 Magnesium [Mass/Vol] 1.8 mg/dL Normal 1.8-2.4 [facility] Comment on above: Performed By: #### M G #### [facility] [address] [place] [address] Dr. Mikayla Haines PROF CHEM 8 (BAS METB)on Anion gap [Moles/Vol] 7.5 mmol/L Normal [facility] Comment on above: Performed By: #### F T3, TSH, BMP #### [facility] [address] [place] [address] Dr. Mikayla Haines Calcium [Mass/Vol] 9.0 mg/dL Normal 8.5-10.1 [facility] Comment on above: Performed By: #### F T3, TSH, BMP #### [facility] [address] [address] [address] Mikayla Haines Chloride [Moles/Vol] 105 mmol/L Normal 98-107 [facility] Comment on above: Performed By: #### F T3, TSH, BMP #### [facility] [address] [address] [address] Mikayla Haines CO2 [Moles/Vol] 30.6 mmol/L Normal 21.0-32.[address] [facility] Comment on above: Performed By: #### F T3, TSH, BMP #### [facility] [address] [address] [address] Mikayla Haines Creatinine [Mass/Vol] 0.73 mg/dL Normal 0.55-1.02 [facility] Comment on above: Performed By: #### F T3, TSH, BMP #### [facility] [address] [address] [address] Mikayla Haines EGFR-AF NIGERIAN >60 Normal >=[address] [facility] Comment on above: Performed By: #### F T3, TSH, BMP #### [facility] [address] [address] [address] Mikayla Haines EGFR-NON AF NIGERIAN >60 Normal >=60 [facility] Comment on above: Performed By: #### F T3, TSH, BMP #### [facility] [address] [address] [address] Mikayla Haines Glucose [Mass/Vol] 273 mg/dL Critically high 74-106 [facility] Comment on above: Performed By: #### F T3, TSH, BMP #### [facility] [address] [address] [address] Mikayla Haines Potassium [Moles/Vol] 3.1 mmol/L Critically low 3.5-5.1 [facility] Comment on above: Performed By: #### F T3, TSH, BMP #### [facility] [address] [address] [address] Mikayla Haines Sodium [Moles/Vol] 140 mmol/L Normal 136-145 [facility] Comment on above: Performed By: #### F T3, TSH, BMP #### [facility] [address] [address] [address] Mikayla Haines Urea nitrogen [Mass/Vol] 20.0 mg/dL Critically high 7.0-18.0 [facility] Comment on above: Performed By: #### F T3, TSH, BMP #### [facility] [address] [address] [address] Mikayla Haines Urea nitrogen/Creatinine [Mass ratio] 27.4 mg/mg Normal [facility] Comment on above: Performed By: #### F T3, TSH, BMP #### [facility] [address] [address] [address] Mikayla Haines TROPONIN, HIGH SENSITIVITYon 04-23-2022 HSTROP 7.8 pg/mL Normal 4.0-51.3 [facility] Comment on above: Result Comment: CUT- OFF POINTS HAVE BEEN ESTABLISHED BASED ON THE FOURTH UNIVERSAL DEFINITIONS OF MYOCARDIAL INFARCTION. THE UPPER REFERENCE LIMIT (URL) OF TROPONIN, DEFINED THE 99TH PERCENTILE OF cTnI DISTRIBUTION IN A REFERENCE POPULATION, HAS BEEN CONFIRMED THE DECISION THRESHOLD FOR [place] DIAGNOSIS. Performed By: #### H STROPN, BNP, BMP, TSH #### [facility] [address] [address] [address] Mikayla Haines TSHon 04-23-2022 TSH 6.903 uIU/mL Critically high 0.358-3.740 [facility] Comment on above: Performed By: #### F T3, TSH, BMP #### [facility] [address] [address] [address] Mikayla Haines XR CHEST 1 Von [...] Jay PEDERSEN Date: 2022-04-23 05:47 Normal [facility] Office Visit (Cardiology)on 01-17-2022 Follow-up visit Diagnoses/Problems [...] Hyperlipidemia AST; Status:Active - Retrospective Authorization; Requested for:17Jul2022; SocHx: Never a smoker Tobacco Use Screening; [...] Recorded: 17Jan2022 09:58AM Heart Rate65, L Radial Smvpkoim963, RUE, Sitting Huaymsssg28, RUE, Sitting Height5 ft 5 in Cvbjpd552 lb 4 oz BMI Lafxirviav96.67 kg/m2 BSA Calculated1.71 Tobacco Useb) No PHQ-2 [...] is normal (more content not included)... Normal [employer] Tobacco Screening.on 022 Adult depression screening assessment No [facility] [employer] y 250 DO Work Phone: Fall risk assessment a) No falls within the last year [facility] [employer] y 250 DO Work Phone: Tobacco use status CPHS b) No [facility] [employer] y 250 DO Work Phone: GLYCOHEMOGLOBIN A1Con 2021 ADA RECOMMENDATION SEE BELOW Normal [facility] Comment on above: Result Comment: ADA RECOMMENDED LIMIT 4.0 - 6.0 ADA THERAPEUTIC TARGET < 7.0 ACTION SUGGESTED > 7.0 Performed By: #### F T3, TSH, BMP #### [facility] [address] [place] [address] Dr. Mikayla Haines Glucose [Mass/Vol] 148 mg/dL Normal [facility] Comment on above: Performed By: #### F T3, TSH, BMP #### [facility] [address] [address] [address] Mikayla Haines HbA1c (Bld) [Mass fraction] 6.8 % Critically high 4.5-6.2 [facility] Comment on above: Performed By: #### F T3, TSH, BMP #### [facility] [address] [place] [address] Dr. Mikayla Haines CBC AUTO DIFFon 12-10-2021 BASO # 0.0 103/ul Normal 0.0-0.1 [facility] Comment on above: Performed By: #### F T3, TSH, BMP #### [facility] [address] [place] [address] Dr. Mikayla Haines Basophils/100 WBC (Bld) 0.5 % Normal 0.2-2.0 [facility] Comment on above: Performed By: #### F T3, TSH, BMP #### [facility] [address] [place] [address] Dr. Mikayla Haines EO # 0.3 103/ul Normal 0.0-0.7 [facility] Comment on above: Performed By: #### F T3, TSH, BMP #### [facility] [address] [place] [address] Dr. Mikayla Haines Eosinophils/100 WBC (Bld) 5.1 % Normal 0.9-7.0 [facility] Comment on above: Performed By: #### F T3, TSH, BMP #### [facility] [address] [place] [address] Dr. Mikayla Haines Erythrocyte distribution width (RBC) [Ratio] 12.5 % Normal 11.0-15.0 [facility] Comment on above: Performed By: #### F T3, TSH, BMP #### [facility] [address] [place] [address] Dr. Mikayla Haines Hematocrit (Bld) [Volume fraction] 39.6 % Normal 36.0-48.0 [facility] Comment on above: Performed By: #### F T3, TSH, BMP #### [facility] [address] [place] [address] Dr. Mikayla Haines Hemoglobin (Bld) [Mass/Vol] 13.4 g/dL Normal 12.0-16.0 [facility] Comment on above: Performed By: #### F T3, TSH, BMP #### [facility] [address] [place] [address] Dr. Mikayla Haines IG # 0.01 10e3/ul Normal 0.00-0.03 [facility] Comment on above: Performed By: #### F T3, TSH, BMP #### [facility] [address] [place] [address] Dr. Mikayla Haines IG % 0.2 % Normal 0.0-0.5 [facility] Comment on above: Performed By: #### F T3, TSH, BMP #### [facility] [address] [place] [address] Dr. Mikayla Haines LYMPH # 1.3 103/ul Normal 1.2-3.8 [facility] Comment on above: Performed By: #### F T3, TSH, BMP #### [facility] [address] [place] [address] Dr. Mikayla Haines Lymphocytes/100 WBC (Bld) 22.5 % Normal 20.5-60.0 [facility] Comment on above: Performed By: #### F T3, TSH, BMP #### [facility] [address] [place] [address] Dr. Mikayla Haines MANUAL DIFF REQ NO Normal [facility] Comment on above: Performed By: #### F T3, TSH, BMP #### [facility] [address] [place] [address] Dr. Mikayla Haines MCH (RBC) [Entitic mass] 30.5 pg Normal 26.7-34.0 [facility] Comment on above: Performed By: #### F T3, TSH, BMP #### [facility] [address] [place] [address] Dr. Mikayla Haines MCHC (RBC) [Mass/Vol] 33.8 g/dL Normal 29.9-35.2 [facility] Comment on above: Performed By: #### F T3, TSH, BMP #### [facility] [address] [place] [address] Dr. Mikayla Haines MCV (RBC) [Entitic vol] 90.0 fL Normal 81.0-99.0 [facility] Comment on above: Performed By: #### F T3, TSH, BMP #### [facility] [address] [place] [address] Dr. Mikayla Haines MONO # 0.6 103/ul Normal 0.3-0.8 [facility] Comment on above: Performed By: #### F T3, TSH, BMP #### [facility] [address] [place], [place] [id number] Dr. Mikayla Haines Monocytes/100 WBC (Bld) 9.3 % Normal 1.7-12.0 [facility] Comment on above: Performed By: #### F T3, TSH, BMP #### [facility] [address] [place] [address] Dr. Mikayla Haines NEUT # 3.7 103/ul Normal 1.4-6.5 [facility] Comment on above: Performed By: #### F T3, TSH, BMP #### [facility] [address] [place] [address] Dr. Mikayla Haines Neutrophils/100 WBC (Bld) 62.4 % Normal 43.0-75.0 [facility] Comment on above: Performed By: #### F T3, TSH, BMP #### [facility] [address] [place] [address] Dr. Mikayla Haines Platelet mean volume (Bld) [Entitic vol] 9.6 fL Normal 9.5-13.5 [facility] Comment on above: Performed By: #### F T3, TSH, BMP #### [facility] [address] [place] [address] Dr. Mikayla Haines PLT 179 103/ul Normal 150-450 [facility] Comment on above: Performed By: #### F T3, TSH, BMP #### [facility] [address] [place] [address] Dr. Mikayla Haines RBC 4.40 106/ul Normal 4.20-5.40 [facility] Comment on above: Performed By: #### F T3, TSH, BMP #### [facility] [address] [place] [address] Dr. Mikayla Haines WBC 5.9 103/ul Normal 4.0-11.0 [facility] Comment on above: Performed By: #### F T3, TSH, BMP #### [facility] [address] [place] [address] Dr. Mikayla Haines CRPon 12-10-2021 CRP [Mass/Vol] mg/L Normal <=1.0 [facility] Comment on above: Performed By: #### F T3, TSH, BMP #### [facility] [address] [address] [address] FACIAL BONES WO [...] LUCILA KNIGHT Date: 2021-12-10 01:24 Normal [facility] PROF CHEM 8 (BAS METB)on Anion gap [Moles/Vol] 6.8 mmol/L Normal [facility] Comment on above: Performed By: #### F T3, TSH, BMP #### [facility] [address] [place] [address] Dr. Mikayla Haines Calcium [Mass/Vol] 8.7 mg/dL Normal 8.5-10.1 [facility] Comment on above: Performed By: #### F T3, TSH, BMP #### [facility] [address] [address] [address] Mikayla Haines Chloride [Moles/Vol] 105 mmol/L Normal 98-107 [facility] Comment on above: Performed By: #### F T3, TSH, BMP #### [facility] [address] [place] [address] Dr. Mikayla Haines CO2 [Moles/Vol] 32.6 mmol/L Critically high 21.0-32.0 [facility] Comment on above: Performed By: #### F T3, TSH, BMP #### [facility] [address] [address] [address] Mikayla Haines Creatinine [Mass/Vol] 0.97 mg/dL Normal 0.55-1.02 [facility] Comment on above: Performed By: #### F T3, TSH, BMP #### [facility] [address] [address] [address] Mikayla Haines EGFR-AF NIGERIAN >60 Normal >=[address] [facility] Comment on above: Performed By: #### F T3, TSH, BMP #### [facility] [address] [address] [address] Mikayla Haines EGFR-NON AF NIGERIAN 57 mL/min/1.73m2 Critically low >=60 [facility] Comment on above: Performed By: #### F T3, TSH, BMP #### [facility] [address] [address] [address] Mikayla Haines Glucose [Mass/Vol] 144 mg/dL Critically high 74-106 [facility] Comment on above: Performed By: #### F T3, TSH, BMP #### [facility] [address] [address] [address] Miakyla Haines Potassium [Moles/Vol] 3.4 mmol/L Critically low 3.5-5.1 [facility] Comment on above: Performed By: #### F T3, TSH, BMP #### [facility] [address] [address] [address] Mikayla Haines Sodium [Moles/Vol] 141 mmol/L Normal 136-145 [facility] Comment on above: Performed By: #### F T3, TSH, BMP #### [facility] [address] [address] [address] Mikayla Haines Urea nitrogen [Mass/Vol] 24.0 mg/dL Critically high 7.0-18.0 [facility] Comment on above: Performed By: #### F T3, TSH, BMP #### [facility] [address] [address] [address] Mikayla Haines Urea nitrogen/Creatinine [Mass ratio] 24.7 mg/mg Normal [facility] Comment on above: Performed By: #### F T3, TSH, BMP #### [facility] [address] [address] [address] Mikayla Haines XR ABD FLAT UP_PA Angelnia 11-02 XR ABD FLAT UP_PA CH EXAMINATION: [...] by: DAGOBERTO SRIVASTAVA Date: 2021-11-02 16:34 Normal [facility] XR KUB 1 VIEWon 09-27-2021 XR KUB [...] PADMINI JOHNSON Date: 2021-09-26 22:50 Normal [facility] CBC W MANUAL DIFFon 09-27-19 22 ATYPICAL LYMPH # Normal [facility] Comment on above: Performed By: #### F T3, TSH, BMP #### [facility] [address] [place], [place] [address] Dr. Mikayla Haines ATYPICAL LYMPH % Normal [facility] Comment on above: Performed By: #### F T3, TSH, BMP #### [facility] [address] [place] [address] Dr. Mikayla Haines BAND # Normal 0.0-0.3 [facility] Comment on above: Performed By: #### F T3, TSH, BMP #### [facility] [address] [place] [address] Dr. Mikayla Hanies BAND % Normal 0-5 [facility] Comment on above: Performed By: #### F T3, TSH, BMP #### [facility] [address] [place] [address] Dr. Mikayla Haines BASOM # 0.00 103/ul Normal 0.00-0.10 [facility] Comment on above: Performed By: #### F T3, TSH, BMP #### [facility] [address] [place] [address] Dr. Mikayla Haines BASOM % 0.0 % Critically low 0.2-2.0 [facility] Comment on above: Performed By: #### F T3, TSH, BMP #### [facility] [address] [place] [address] Dr. Mikayla Haines BLAST # Normal [facility] Comment on above: Performed By: #### F T3, TSH, BMP #### [facility] [address] [place] [address] Dr. Mikayla Haines BLAST % Normal [facility] Comment on above: Performed By: #### F T3, TSH, BMP #### [facility] [address] [place] [address] Dr. Mikayla Haines CORRECTED WBC Normal 4.0-11.0 [facility] Comment on above: Performed By: #### F T3, TSH, BMP #### [facility] [address] [place] [address] Dr. Mikayla Haines EOS # 0.23 103/ul Normal 0.00-0.70 [facility] Comment on above: Performed By: #### F T3, TSH, BMP #### [facility] [address] [place] [address] Dr. Mikayla Haines EOS% 4.0 % Normal 0.9-7.0 [facility] Comment on above: Performed By: #### F T3, TSH, BMP #### [facility] [address] [address] [address] Mikayla Haines HCT 36.5 % Normal 36.0-48.0 [facility] Comment on above: Performed By: #### F T3, TSH, BMP #### [facility] [address] [address] [address] Mikayla Haines HGB 12.3 g/dl Normal 12.0-16.0 [facility] Comment on above: Performed By: #### F T3, TSH, BMP #### [facility] [address] [address] [address] Mikayla Haines LYMPHM # 1.45 103/ul Normal 1.20-3.80 [facility] Comment on above: Performed By: #### F T3, TSH, BMP #### [facility] [address] [address] [address] iMkayla Haines LYMPHM% 25.0 % Normal 20.5-60.0 [facility] Comment on above: Performed By: #### F T3, TSH, BMP #### [facility] [address] [address] [address] Mikayla Haines MCH 30.5 pg Normal 26.7-34.0 [facility] Comment on above: Performed By: #### F T3, TSH, BMP #### [facility] [address] [address] [address] Mikayla Haines MCHC 33.7 g/dl Normal 29.9-35.2 [facility] Comment on above: Performed By: #### F T3, TSH, BMP #### [facility] [address] [address] [address] Mikayla Haines MCV 90.6 fL Normal 81.0-99.0 [facility] Comment on above: Performed By: #### F T3, TSH, BMP #### [facility] [address] [address] [address] Mikayla Haines METAMYELOCYTE # Normal [facility] Comment on above: Performed By: #### F T3, TSH, BMP #### [facility] [address] [address] [address] Mikayla Haines METAMYELOCYTE % Normal [facility] Comment on above: Performed By: #### F T3, TSH, BMP #### [facility] [address] [place] [address] Dr. Mikayla Haines MONOM# 0.52 103/ul Normal 0.30-0.80 [facility] Comment on above: Performed By: #### F T3, TSH, BMP #### [facility] [address] [place] [address] Dr. Mikayla Haines MONOM% 9.0 % Normal 1.7-12.0 [facility] Comment on above: Performed By: #### F T3, TSH, BMP #### [facility] [address] [place] [address] Dr. Mikayla Haines MPV 9.3 fL Critically low 9.5-13.5 [facility] Comment on above: Performed By: #### F T3, TSH, BMP #### [facility] [address] [place] [address] Dr. Mikayla Haines MYELOCYTE # Normal [facility] Comment on above: Performed By: #### F T3, TSH, BMP #### [facility] [address] [place] [address] Dr. Mikayla Haines MYELOCYTE % Normal [facility] Comment on above: Performed By: #### F T3, TSH, BMP #### [facility] [address] [place] [address] Dr. Mikayla Haines NRBC Normal [facility] Comment on above: Performed By: #### F T3, TSH, BMP #### [facility] [address] [address] [address] Mikayla Haines PLT 176 103/ul Normal 150-450 [facility] Comment on above: Performed By: #### F T3, TSH, BMP #### [facility] [address] [place] [address] Dr. Mikayla Haines RBC 4.03 106/ul Critically low 4.20-5.40 [facility] Comment on above: Performed By: #### F T3, TSH, BMP #### [facility] [address] [place], [place] [address] Dr. Mikayla Haines RDW 12.2 % Normal 11.0-15.0 [facility] Comment on above: Performed By: #### F T3, TSH, BMP #### [facility] [address] [place], [place] [address] Dr. Mikayla Haines SEG # 3.60 103/ul Normal 1.40-6.50 [facility] Comment on above: Performed By: #### F T3, TSH, BMP #### [facility] [address] [place], [place] [address] Dr. Mikayla Haines SEG % 62.0 % Normal 43.0-75.0 [facility] Comment on above: Performed By: #### F T3, TSH, BMP #### [facility] [address] [place], [place] [address] Dr. Mikayla Haines WBC 5.8 103/ul Normal 4.0-11.0 [facility] Comment on above: Performed By: #### F T3, TSH, BMP #### [facility] [address] [place], [place] [address] ABD/PELVIS WO CONon [...] LAMBERTO DOLAN Date: 2021-09-26 20:48 Normal [facility] CULTURE URINEon 09-26-2021 CULTURE URINE Culture Observations : NO GROWTH. Normal [facility] Comment on above: Performed By: #### F T3, TSH, BMP #### [facility] [address] [address] [address] Mikayla Haines ER URINE PROFILEon 2 Bilirubin Ql (U) Negative Normal NEGATIVE [facility] Comment on above: Performed By: #### F T3, TSH, BMP #### [facility] [address] [address] [address] Mikayla Haines Clarity (U) CLEAR Normal CLEAR [facility] Comment on above: Performed By: #### F T3, TSH, BMP #### [facility] [address] [address] [address] Mikayla Haines Color (U) LT. YELLOW Normal YELLOW [facility] Comment on above: Performed By: #### F T3, TSH, BMP #### [facility] [address] [address] [address] Mikayla WAYNE A micrscopic examination will be performed if indicated. Normal [facility] Comment on above: Performed By: #### F T3, TSH, BMP #### [facility] [address] [address] [address] Mikayla Haines Glucose Ql (U) 250 mg/dl Abnormal NEGATIVE [facility] Comment on above: Performed By: #### F T3, TSH, BMP #### [facility] [address] [address] [address] Mikayla Haines Hemoglobin Ql (U) LARGE Abnormal NEGATIVE [facility] Comment on above: Performed By: #### F T3, TSH, BMP #### [facility] [address] [place] [address] Dr. Mikayla Haines Ketones Ql (U) Negative Normal NEGATIVE [facility] Comment on above: Performed By: #### F T3, TSH, BMP #### [facility] [address] [place] [address] Dr. Mikayla Haines LEUKOCYTES Negative Normal NEGATIVE [facility] Comment on above: Performed By: #### F T3, TSH, BMP #### [facility] [address] [address] [address] Mikayla Haines Nitrite Ql (U) Negative Normal NEGATIVE [facility] Comment on above: Performed By: #### F T3, TSH, BMP #### [facility] [address] [place] [address] Dr. Mikayla Haines pH (U) 7.5 [pH] Normal 5-9 [facility] Comment on above: Performed By: #### F T3, TSH, BMP #### [facility] [address] [address] [address] Mikayla Haines SPEC GRAVITY 1.015 Normal 1.005-<=1.02 5 [facility] Comment on above: Performed By: #### F T3, TSH, BMP #### [facility] [address] [address] [address] Mikayla Haines UA PROTEIN Negative Normal NEGATIVE/ TRACE [facility] Comment on above: Performed By: #### F T3, TSH, BMP #### [facility] [address] [place] [address] Dr. Mikayla Haines UR MICRO IND INDICATED Normal [facility] Comment on above: Performed By: #### F T3, TSH, BMP #### [facility] [address] [place] [address] Dr. Mikayla Haines Urobilinogen Qn (U) 0.2 {Jayesh'U}/dL Normal 0.2 - 1. 0 [facility] Comment on above: Performed By: #### F T3, TSH, BMP #### [facility] [address] [place] [address] Dr. Mikayla Haines LACTATE/LACTIC ACIDon 2021 Lactate [Moles/Vol] 1.5 mmol/L Normal 0.4-1.9 [facility] [place] [facility] Comment on above: Performed By: #### F T3, TSH, BMP #### [facility] [address] [place] [address] Dr. Mikayla Haines PROF 14(COMP METB)on 022 Albumin [Mass/Vol] 3.5 g/dL Normal 3.4-5.0 [facility] Comment on above: Performed By: #### F T3, TSH, BMP #### [facility] [address] [place] [address] Dr. Mikayla Haines Albumin/Globulin [Mass ratio] 1.4 {ratio} Normal [facility] Comment on above: Performed By: #### F T3, TSH, BMP #### [facility] [address] [place] [address] Dr. Mikayla Haines ALP [Catalytic activity/Vol] 77 U/L Normal 46-116 [facility] Comment on above: Performed By: #### F T3, TSH, BMP #### [facility] [address] [place] [address] Dr. Mikayla Haines ALT [Catalytic activity/Vol] 41 U/L Normal 14-59 [facility] Comment on above: Performed By: #### F T3, TSH, BMP #### [facility] [address] [address] [address] Mikayla Haines Anion gap [Moles/Vol] 7.4 mmol/L Normal [facility] Comment on above: Performed By: #### F T3, TSH, BMP #### [facility] [address] [address] [address] Mikayla Haines AST [Catalytic activity/Vol] 24 U/L Normal 15-37 [facility] Comment on above: Performed By: #### F T3, TSH, BMP #### [facility] [address] [place] [address] Dr. Mikayla Haines Bilirubin [Mass/Vol] 1.5 mg/dL Critically high 0.2-1.0 [facility] Comment on above: Performed By: #### F T3, TSH, BMP #### [facility] [address] [place] [address] Dr. Mikayla Haines Calcium [Mass/Vol] 8.7 mg/dL Normal 8.5-10.1 [facility] Comment on above: Performed By: #### F T3, TSH, BMP #### [facility] [address] [place] [address] Dr. Mikayla Haines Chloride [Moles/Vol] 105 mmol/L Normal 98-107 [facility] Comment on above: Performed By: #### F T3, TSH, BMP #### [facility] [address] [place] [address] Dr. Mikayla Haines CO2 [Moles/Vol] 31.8 mmol/L Normal 21.0-32.0 [facility] Comment on above: Performed By: #### F T3, TSH, BMP #### [facility] [address] [place] [address] Dr. Mikayla Haines Creatinine [Mass/Vol] 0.80 mg/dL Normal 0.55-1.02 [facility] Comment on above: Performed By: #### F T3, TSH, BMP #### [facility] [address] [place] [address] Dr. Mikayla Haines EGFR-AF NIGERIAN >60 Normal >=60 [facility] Comment on above: Performed By: #### F T3, TSH, BMP #### [facility] [address] [address] [address] Mikayla Haines EGFR-NON AF NIGERIAN >60 Normal >=60 [facility] Comment on above: Performed By: #### F T3, TSH, BMP #### [facility] [address] [address] [address] Mikayla Haines Globulin (S) [Mass/Vol] 2.5 g/dL Normal [facility] Comment on above: Performed By: #### F T3, TSH, BMP #### [facility] [address] [address] [address] Mikayla Haines Glucose [Mass/Vol] 144 mg/dL Critically high 74-106 [facility] Comment on above: Performed By: #### F T3, TSH, BMP #### [facility] [address] [place] [address] Dr. Mikayla Haines Potassium [Moles/Vol] 3.2 mmol/L Critically low 3.5-5.1 [facility] Comment on above: Performed By: #### F T3, TSH, BMP #### [facility] [address] [address] [address] Mikayla Haines Protein [Mass/Vol] 6.0 g/dL Critically low 6.4-8.2 [facility] Comment on above: Performed By: #### F T3, TSH, BMP #### [facility] [address] [address] [address] Mikayla Haines Sodium [Moles/Vol] 141 mmol/L Normal 136-145 [facility] Comment on above: Performed By: #### F T3, TSH, BMP #### [facility] [address] [address] [address] Mikayla Haines Urea nitrogen [Mass/Vol] 21.0 mg/dL Critically high 7.0-18.0 [facility] Comment on above: Performed By: #### F T3, TSH, BMP #### [facility] [address] [address] [address] Mikayla Haines Urea nitrogen/Creatinine [Mass ratio] 26.2 mg/mg Normal [facility] Comment on above: Performed By: #### F T3, TSH, BMP #### [facility] [address] [place] [address] Dr. Mikayla Haines URINE MICROSCOPIC ONLYon BACTERIA TRACE Abnormal NONE SEEN [facility] Comment on above: Performed By: #### F T3, TSH, BMP #### [facility] [address] [place] [address] Dr. Mikayla Haines Bacteria identified Cx Nom (U) INDICATED Normal [facility] Comment on above: Performed By: #### F T3, TSH, BMP #### [facility] [address] [place] [address] Dr. Mikayla Haines CAST NONE SEEN Normal NONE SEEN [facility] Comment on above: Performed By: #### F T3, TSH, BMP #### [facility] [address] [place] [address] Dr. Mikayla Haines Crystals LM Nom (Urine sed) NONE SEEN Normal NONE SEEN [facility] Comment on above: Performed By: #### F T3, TSH, BMP #### [facility] [address] [place] [address] Dr. Mikayla Haines Epithelial cells LM Ql (Urine sed) RARE Normal NONE SEEN /RARE [facility] Comment on above: Performed By: #### F T3, TSH, BMP #### [facility] [address] [place] [address] Dr. Mikayla Haines MUCOUS NONE SEEN Normal NONE SEEN [facility] Comment on above: Performed By: #### F T3, TSH, BMP #### [facility] [address] [place] [address] Dr. Mikayla Haines RBC 20-50 Abnormal 0-2 [facility] Comment on above: Performed By: #### F T3, TSH, BMP #### [facility] [address] [place] [address] Dr. Mikayla Haines WBC 0-2 Abnormal NONE SEEN [facility] Comment on above: Performed By: #### F T3, TSH, BMP #### [facility] [address] [place] [address] Dr. Mikayla Haines GLYCOHEMOGLOBIN A1Con 2021 ADA RECOMMENDATION SEE BELOW Normal [facility] Comment on above: Result Comment: ADA RECOMMENDED LIMIT 4.0 - 6.0 ADA THERAPEUTIC TARGET < 7.0 ACTION SUGGESTED > 7.0 Performed By: #### A 1C #### [facility] [address] [address] [address] Mikayla Haines Glucose [Mass/Vol] 192 mg/dL Normal [facility] Comment on above: Performed By: #### A 1C #### [facility] [address] [place] [address] Dr. Mikayla Haines HbA1c (Bld) [Mass fraction] 8.3 % Critically high 4.5-6.2 [facility] Comment on above: Performed By: #### A 1C #### [facility] [address] [place] [address] Dr. Mikayla Haines MAGNESIUMon 08-01-2021 Magnesium [Mass/Vol] 2.0 mg/dL Normal 1.8-2.4 [facility] Comment on above: Performed By: #### M G, BMP #### [facility] [address] [place] [address] Dr. Mikayla Haines PROF CHEM 8 (BAS METB)on Anion gap [Moles/Vol] 9.2 mmol/L Normal [facility] Comment on above: Performed By: #### M G, BMP #### [facility] [address] [place] [address] Dr. Mikayla Haines Calcium [Mass/Vol] 8.7 mg/dL Normal 8.5-10.1 [facility] Comment on above: Performed By: #### M G, BMP #### [facility] [address] [place] [address] Dr. Mikayla Haines Chloride [Moles/Vol] 102 mmol/L Normal 98-107 [facility] Comment on above: Performed By: #### M G, BMP #### [facility] [address] [place] [address] Dr. Mikayla Haines CO2 [Moles/Vol] 32.4 mmol/L Critically high 21.0-32.0 [facility] Comment on above: Performed By: #### M G, BMP #### [facility] [address] [address] [address] Mikayla Haines Creatinine [Mass/Vol] 0.91 mg/dL Normal 0.55-1.02 [facility] Comment on above: Performed By: #### M G, BMP #### [facility] [address] [address] [address] Mikayla Haines EGFR-AF NIGERIAN >60 Normal >=[address] [facility] Comment on above: Performed By: #### M G, BMP #### [facility] [address] [address] [address] Mikayla Haines EGFR-NON AF NIGERIAN >60 Normal >=60 [facility] Comment on above: Performed By: #### M G, BMP #### [facility] [address] [address] [address] Mikayla aHines Glucose [Mass/Vol] 232 mg/dL Critically high 74-106 [facility] Comment on above: Performed By: #### M G, BMP #### [facility] [address] [address] [address] Mikayla Hianes Potassium [Moles/Vol] 3.6 mmol/L Normal 3.5-5.1 [facility] Comment on above: Performed By: #### M G, BMP #### [facility] [address] [address] [address] Mikayla Haines Sodium [Moles/Vol] 140 mmol/L Normal 136-145 [facility] Comment on above: Performed By: #### M G, BMP #### [facility] [address] [address] [address] Mikayla Haines Urea nitrogen [Mass/Vol] 33.0 mg/dL Critically high 7.0-18.0 [facility] Comment on above: Performed By: #### M G, BMP #### [facility] [address] [address] [address] Mikayla Haines Urea nitrogen/Creatinine [Mass ratio] 36.3 mg/mg Normal [facility] Comment on above: Performed By: #### M G, BMP #### [facility] [address] [address] [address] Mikayla Haines Cardiovasc Arrhythmia Result son 04-25-2021 Cardiovasc Arrhythmia Results Reason For Visit Reason for Visit: Holter Monitor: RAFI is here for the application of a 24 hour Holter monitor. Ordering Physician: Dr. Jason Alex DO Diagnosis: PAF [facility] equipment agreement signed. [facility] understands monitor is to be returned on: 04/26/2021 Monitor number [id number] applied. Holter monitor returned with diary and [...] Appointments Date/TimeProviderSpeci altySite 10/25/2021 10:00 Jason Rice, [id number] [facility] 2 Jan 250 DO Signatures Electronically signed by : Jason Devlin MD; Apr 28 2021 6:17PM EST (Author) [facility]-19-2021 Follow-up visit Diagnoses/Problems [...] Hrs; Status:Active - Perform Order,Retrospective Authorization; Requested for:19Apr2021; Arteriosclerotic heart disease (ASHD), History of myocardial infarction, S/P CABG x 3 Start: Bumetanide 1 MG Oral Tablet; TAKE 1 TABLET EVERY OTHER DAY Cardiac Rehab Referral Evaluation and Treatment Evaluate AND Treat Status: Hold For - Scheduling,Retrospecti ve Authorization Requested for: 19Apr2021 Agreement : I agree to have my [...] Patient Instructions By signing my name below, IKenyatta LPN, Scribe, attest that this documentation has been prepared [...] female who returns following recent non-ST elevation [place], and three-vessel urgent bypass surgery. All this [...] Tablet Exte (more content not included)... Normal [employer] Tobacco Screening.on 022 Fall risk assessment a) No falls within the last year [facility] [employer] y 250 DO Work Phone: Tobacco use status CP b) No [facility] [employer] y 250 DO Work Phone: Laboratory - Microbiology an d Antimicrobial susceptibilityon 02-11-2021 SARS-CoV-2 (COVID-19) RNA MIKIE+probe Ql (Unsp spec) [facility] y [address] [place] Work Phone: [facility] 09-01-2020 [facility] HNO ID: [id number] Author: RT Lori(R) Service: ? 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 This information is taken directly from the surgical orderly system. TECHNIQUE: Routine brain MRI protocol without [...] veins, and dural venous sinuses are patent. News Technical Director: ZION Transcribe Date/Time: Sep 01 2020 10:41A Dictated by : MIRLANDE OSCAR MD This examination was interpreted and the report reviewed and electronically signed by: MIRLANDE OSCAR MD on Sep 01 2020 11:01AM EST [id number] [facility] MIHIRRAFI Gil ([id number]) 1955 F Date Time Provider Department 06/02/20 YENNY ONEAL (RN) [facility] During your visit today, we recorded the following information about you: Yenny Oneal RN, RN 06/02/2020 3:35 PM Signed MRI brain w / without contrast reviewed by Dr. Enriquez. Per Dr. Enriquez, repeat MRI in 3 months. Called and spoke w patient who is agreeable w this plan. All questions answered.Yenny Oneal RN, BSN Fur Puller pager #[phone]. Allergies As of Date: 06/02/2020 Noted Allergy [...] Encounter Status:Closed by YENNY ONEAL on 06/02/20 [facility] ALLIED HEALTHon 05-31-2020 ALLIED HEALTH HNO ID: [id number] Author: Art ([place]) [place] Service: ? Author Type: Chuck Splitter Type: Allied Health Filed: 05/31/2020 2:58 PM [...] DATE: May 31, 2020 TIME: 2:38 PM [facility] MRI BRAIN WO/W IVCONon 05-31 MRI BRAIN WO/W IVCON * * *Final Report* * * DATE OF EXAM: May 31 2020 3:08PM [facility] 0295 - MRI BRAIN WO/W IVCON [...] mild localized mass effect. Otherwise normal study. News Technical Director: ZION Transcribe Date/Time: May 31 2020 4:16P Dictated by : JAYLIN PTEIT MD This examination was interpreted and the report reviewed and electronically signed by: JAYLIN PETIT MD on May 31 2020 4:26PM EST [id number] [facility] 05-03-2020 [facility] Telephone (NSCAMN) MIHIRRAFI Louise ([id number]) 1955 F Date Time Provider Department 05/03/20 JOHNNA MEYERS (RN) [facility] During your visit today, we recorded the following information about you: Johnna Meyers RN, RN 05/03/2020 9:56 AM Signed Call placed to patient in regards to referral to [facility] and to see how I can assist with obtaining additional information. Patient recently had imaging at [facility]. The triage process had been imitated earlier [...] if so, then I'll reach out to [facility] to obtain the disc or see if Mabel can electronically send imaging to [facility]. Johnna Meyers RN, RN 05/04/2020 8:31 AM Signed Images are now available in [employer]. Additional medical records received from referring providers office and are under scanned documents. Message has been sent to scheduling to coordinate an appointment as soon as possible with the neurosurgeon Allergies As of Date: 05/03/2020 Noted Allergy Reaction LATEX 08/21/2011 2 - Rash Date Reviewed: 06/30/2014 Reviewed by: Skyla Fay) MARGARITA Blum - Fully Assessed Reason for Visit: Fur Puller - Other [3642] Cmt: referral to [facility] Prescriptions as of [...] Status:Closed by JOHNNA MEYERS on 05/04/20 Normal [facility] MR-MRI BRAIN WO CON IMPORTon 04-26-2020 MR-MRI BRAIN WO CON IMPORT Images were obtained outside of [facility] [id number] Normal [facility] Vital Signs Date Time Vital Sign Value Performing Clinician Facility 01-25-2024 13:45-0500 Diastolic blood pressure 82 mm[Hg] Janes Rivera [facility] 01-25-2024 13:45-0500 Heart rate 68 /min Janes Rivera [facility] 01-25-2024 13:45-0500 Respiratory rate 16 /min Janes [facility] 01-25-2024 13:45-0500 SaO2% (BldA) [Mass fraction] 98 % Janes [facility] 01-25-2024 13:45-0500 Systolic blood pressure 132 mm[Hg] Janes [facility] 01-24-2024 08:54-0500 Diastolic blood pressure 91 mm[Hg] Mohamad Mouchli [facility] 01-24-2024 08:54-0500 Mean blood pressure 123 mm[Hg] Mohamad Mouchli [facility] 01-24-2024 08:54-0500 Systolic blood pressure 187 mm[Hg] Mohamad Mouchli [facility] 01-24-2024 08:49-0500 Blood Pressure Location Mohamad Mouchli [facility] 01-24-2024 08:49-0500 Diastolic blood pressure 91 mm[Hg] Mohamad Mouchli [facility] 01-24-2024 08:49-0500 Heart rate 72 /min Mohamad Mouchli [facility] 01-24-2024 08:49-0500 Respiratory rate 16 /min Mohamad Mouchli [facility] 01-24-2024 08:49-0500 Systolic blood pressure 198 mm[Hg] Mohamad Mouchli [facility] 01-17-2024 12:30-0400 Blood Pressure Location KAYLA GEORGE [facility] 01-17-2024 12:30-0400 Body temperature 98.6 [degF] KAYLA MALIK [facility] 01-17-2024 12:30-0400 Diastolic blood pressure 74 mm[Hg] KAYLA MALIK [facility] 01-17-2024 12:30-0400 Heart rate 72 /min KAYLA MALIK [facility] 01-17-2024 12:30-0400 Respiratory rate 18 /min KAYLA MALIK [facility] 01-17-2024 12:30-0400 Systolic blood pressure 129 mm[Hg] KAYLA MALIK [facility] 07-29-2023 14:38-0400 Heart rate 62 /min [facility] 07-29-2023 14:38-0400 Respiratory rate 18 /min [facility] 07-29-2023 14:38-0400 SaO2% (BldA) [Mass fraction] 100 % [facility] 07-29-2023 14:33-0400 Heart rate 59 /min [facility] 07-29-2023 14:33-0400 Respiratory rate 18 /min [facility] 07-29-2023 14:33-0400 SaO2% (BldA) [Mass fraction] 99 % [facility] 07-29-2023 14:00-0400 Diastolic blood pressure 80 mm[Hg] [facility] 07-29-2023 14:00-0400 Heart rate 61 /min [facility] 07-29-2023 14:00-0400 Mean blood pressure 102 mm[Hg] [facility] 07-29-2023 14:00-0400 Systolic blood pressure 145 mm[Hg] [facility] 07-29-2023 13:19-0400 Diastolic blood pressure 88 mm[Hg] [facility] 07-29-2023 13:19-0400 Mean blood pressure 120 mm[Hg] [facility] 07-29-2023 13:19-0400 Systolic blood pressure 185 mm[Hg] [facility] 07-29-2023 12:01-0400 Body temperature 97.88 [degF] [facility] 07-29-2023 12:01-0400 Diastolic blood pressure 87 mm[Hg] [facility] 07-29-2023 12:01-0400 Heart rate 60 /min [facility] 07-29-2023 12:01-0400 Systolic blood pressure 188 mm[Hg] [facility] 01-23-2023 13:37-0500 Diastolic blood pressure 78 mm[Hg] Jason Alex DO Work Phone: [facility] 01-23-2023 13:37-0500 Systolic blood pressure 152 mm[Hg] Jason Alex DO Work Phone: [facility] 01-23-2023 13:00-0500 Body height 165.1 cm Jason Alex DO Work Phone: [facility] 01-23-2023 13:00-0500 Body mass index (BMI) [Ratio] 23.46 kg/m2 Jason Alex DO Work Phone: [facility] 01-23-2023 13:00-0500 Body weight 63.96 kg Jason Alex DO Work Phone: [facility] 01-23-2023 13:00-0500 Heart rate 76 /min Jason Alex DO Work Phone: [facility] 01-17-2022 09:58-0400 Body height 165.1 cm Lamont Butler Work Phone: [facility] DO Work Phone: 01-17-2022 09:58-0400 Body mass index (BMI) [Ratio] 23.67 kg/m2 Lamont Butler Work Phone: [facility] DO Work Phone: 01-17-2022 09:58-0400 Body surface area Derived from formula 1.71 m2 Lamont Butler Work Phone: [facility] DO Work Phone: 01-17-2022 09:58-0400 Body weight 64.52 kg Lamont Butler Work Phone: [facility] DO Work Phone: 01-17-2022 09:58-0400 Diastolic blood pressure 78 mm[Hg] Lamont Butler Work Phone: [facility] DO Work Phone: 01-17-2022 09:58-0400 Heart rate 65 /min Lamont Butler Work Phone: [facility] DO Work Phone: 01-17-2022 09:58-0400 Systolic blood pressure 138 mm[Hg] Lamont Butler Work Phone: [facility] DO Work Phone: 04-19-2021 11:50-0500 Body height 165.1 cm Lamont Butler Work Phone: [facility] DO Work Phone: 04-19-2021 11:50-0500 Body mass index (BMI) [Ratio] 21.47 kg/m2 Lamont Butler Work Phone: [facility] DO Work Phone: 04-19-2021 11:50-0500 Body surface area Derived from formula 1.64 m2 Lamont Butler Work Phone: [facility] DO Work Phone: 04-19-2021 11:50-0500 Body weight 58.51 kg Lamont Butler Work Phone: [facility] DO Work Phone: 04-19-2021 11:50-0500 Diastolic blood pressure 81 mm[Hg] Lamont Butler Work Phone: [facility] DO Work Phone: 04-19-2021 11:50-0500 Heart rate 74 /min Lamont Butler Work Phone: [facility] DO Work Phone: 04-19-2021 11:50-0500 Systolic blood pressure 134 mm[Hg] Lamont Butler Work Phone: [facility] DO Work Phone: Encounters Encounter Date Encounter Type Care Provider Facility Start: 10-08-2024 End: 10-08-2024 ambulatory Maris Scott Facility: [facility] Start: 10-08-2024 End: 10-08-2024 Patient encounter procedure Maris Scott [facility] Jose Martin Start: 09-30-2024 End: 09-30-2024 ambulatory ECONOMIC HISTORY TEACHER NEGAR DE [place] Facility:[facility] Start: 09-08-2024 End: 09-08-2024 ambulatory ECONOMIC HISTORY TEACHER NEGAR DE [place] Facility:[facility] Start: 08-12-2024 End: 08-12-2024 Robertbomatias Fiore DO Work Phone: [facility] Start: 08-12-2024 End: 08-12-2024 Bamboo flowsheet Bita Fiore DO Work Phone: [facility] Start: 08-12-2024 End: 08-12-2024 ambulatory BITA FIORE Not Available Start: 08-08-2024 End: 08-09-2024 Pre-admission assessment Maldonado Oro [facility] Start: 07-21-2024 End: 07-21-2024 ambulatory [facility] Start: 07-01-2024 End: 07-01-2024 ambulatory Francisco Mckeon Facility:[facility] Start: 03-26-2024 ambulatory ANKIT Dave lity:NamanStacy [facility] Start: 03-18-2024 End: 03-18-2024 ambulatory Maris Scott Facility:[facility] Start: 03-18-2024 End: 03-18-2024 Patient encounter procedure Maris Scott [facility] Start: 03-17-2024 End: 03-17-2024 ambulatory Maris Scott Facility:[facility] Start: 03-17-2024 End: 03-17-2024 Patient encounter procedure Maris Scott [facility] Start: 01-25-2024 End: 01-25-2024 ambulatory XXXX NONE Facility:[facility] Start: 01-25-2024 End: 01-25-2024 Patient encounter procedure Janes Rivera [facility] Start: 01-24-2024 End: 01-24-2024 ambulatory Raman Garcia Facility:[facility] Start: 01-24-2024 End: 01-24-2024 Patient encounter procedure Raman Andrewkhurram [facility] Start: 01-17-2024 End: 01-17-2024 Lab Drop off KAYLA Janie MAILK [facility] Start: 01-17-2024 End: 01-17-2024 ambulatory KAYLA Lima MALIK Facility:[facility] Start: 01-17-2024 End: 01-17-2024 Patient encounter procedure KAYLA HITCHCOCKRY [facility] Start: 01-17-2024 End: 01-17-2024 ambulatory MD Francisco Mckeon Work Phone: [facility] Work Phone: Start: 01-17-2024 End: 01-17-2024 Patient encounter procedure MD Francisco Mckeon Work Phone: [facility] Work Phone: Start: 01-14-2024 End: 01-14-2024 ambulatory Francisco Mckeon Facility:[facility] Start: 01-14-2024 End: 01-14-2024 Patient encounter procedure Francisco Mckeon [facility] Start: 01-01-2024 End: 01-01-2024 Lab Drop off Francisco Mckeon [facility] Start: 01-01-2024 End: 01-01-2024 ambulatory Francisco Mckeon Facility:[facility] Start: 12-04-2023 ambulatory Francisco Mckeon Facility:[facility] Start: 10-03-2023 End: 10-03-2023 Lab Drop off Janes Haydee Rivera [facility] Start: 10-03-2023 End: 10-03-2023 ambulatory Francisco Mckeon Facility:[facility] Start: 09-10-2023 End: 09-10-2023 ambulatory Francisco Mckeon Facility:[facility] Start: 07-29-2023 End: 07-29-2023 Emergency department patient visit Alise Robin [facility] Start: 07-27-2023 End: 07-27-2023 ambulatory Carolyn L Sunny Facility:[facility] Start: 07-16-2023 End: 07-16-2023 ambulatory Francisco Mckeon Facility:[facility] Start: 07-03-2023 ambulatory Francisco Mckeon Facility: [facility] Start: 07-03-2023 End: 07-03-2023 Lab Drop off Francisco Mckeon [facility] Start: 07-03-2023 End: 07-03-2023 ambulatory Francisco Mckeon Facility:[facility] Start: 04-23-2023 End: 04-23-2023 ambulatory Francisco Mckeon Facility:[facility] Start: 04-03-2023 End: 04-03-2023 ambulatory Francisco Mckeon Facility:[facility] Start: 03-20-2023 End: 03-20-2023 ambulatory [facility] Start: 03-01-2023 End: 03-01-2023 ambulatory Carolyn L Sunny Facility:[facility] Start: 02-13-2023 End: 02-13-2023 ambulatory Francisco Mckeon Facility:[facility] Start: 01-23-2023 End: 01-23-2023 ambulatory [facility] Start: 01-23-2023 End: 01-23-2023 Office outpatient visit 25 minutes [facility] Work Phone: [facility] Comment on above: Arteriosclerotic hea rt disease (ASHD) (Primary Dx); History of myocardial infarction; Hyperlipidemia, unspecified hyperlipidemia type; Essential hypertension, benign; S/P CABG x 3; Paroxysmal atrial fibrillation ([facility]/HCC); Other specified diabetes mellitus with other specified complication, with long-term current use of insulin (CMS/HCC) Start: 01-15-2023 End: 01-15-2023 ambulatory MD Francisco Mckeon Work Phone: [facility] Work Phone: Start: 01-15-2023 End: 01-15-2023 Patient encounter procedure MD Francisco Mckeon Work Phone: [facility] Work Phone: Start: 05-15-2022 End: 05-16-[address] LAMONT BUTLER . Facility:[facility] Start: 04-23-2022 End: 04-23-[address] YENY BYRD . Facility:[facility] Start: 03-17-2022 Rx Renewal Lamont Butler Work Phone: [facility] DO Work Phone: Start: 01-17-2022 Office outpatient vi sit 15 minutes Lamont Butler Work Phone: [facility] DO Work Phone: Start: 01-17-2022 ambulatory Lamont Butler Facil ity: Start: 01-13-2022 End: 01-13-2022 ambulatory MD Lamont Butler Work Phone: [facility] Work Phone: Start: 01-13-2022 End: 01-13-2022 Patient encounter procedure MD Lamont Butler Work Phone: [facility] Start: 01-11-2022 End: 01-12-2022 [...] End: 09-30-2021 Lab Drop off Patrick MEJIA [facility] Start: 09-26-2021 End: 09-27-2021 ambulatory GIAN CLINE . Facility:[facility] Start: 08-01-2021 End: 08-02-[address] LAMONT BUTLER . Facility:[facility] Start: 04-28-2021 ambulatory Lamont Butler Facil ity: Start: 04-25-2021 Patient encounter procedure Bry Butler Work Phone: [facility] DO Work Phone: Start: 04-25-2021 ambulatory Lamont Butler Facil ity: Start: 04-19-2021 Office outpatient vi sit 25 minutes Lamont Butler Work Phone: [facility] DO Work Phone: Start: 04-19-2021 ambulatory Lamont Butler Facil ity: Start: 03-31-2021 Rx Renewal Stacy Cornell MD Work Phone: [facility] [place] Work Phone: Start: 02-23-[address] Jason Alex Fac ility:[id number] Start: 02-22-[address] Jason Alex Fac ility:[id number] Start: 02-21-[address] Jason Alex Fac ility:[id number] Start: 02-19-[address] Jason Alex Fac ility:[id number] Start: 02-18-[address] Jason Alex Fac ility:[id number] Start: 02-17-[address] Jason Potter ility:[id number] Start: 02-16-[address] Jason Potter ility:[id number] Start: 02-14-[address] Jason Potter ility:[id number] Start: 02-13-[address] Jason Potter ility:[id number] Start: 02-12-2021 Chart Update Stacy Cornell MD Work Phone: [facility] [place] Work Phone: Start: 02-12-[address] Jason Potter ility:[id number] Start: 02-11-[address] Jason Potter ility:[id number] Start: 02-10-[address] 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 (CMS/HCC) Bita Fiore DO Work Phone: Comment on above: Mild [...] Work Phone: Ligation of fallopia n tube Francisco Mckeon Operative procedure on spinal structure Lamont Butler Work Phone: Tooth extraction Francisco Mckeon Plan of Treatment Date Care Activity Detail Author Start: 01-15-2027 DTaP/Tdap/Td Vaccine s (2 - Td or Tdap) DTaP/Tdap/Td Vaccines (2 - Td or Tdap) [facility] Start: 08-12-2024 End: 08-12-2024 Patient encounter procedure 08/12/2024 8:15 AM EDT Office Visit [facility] [address] [place] [address] Bita Fiore DO [address] [place] [address] Arrived [facility] Comment on above: Arrived Start: 12-12-2023 Glaucoma screening Diabetes: R etinopathy Screening [facility] Start: 01-23-2023 FUV, Provider: Jason Alex, Status: Pen, Time: 9:10 AM FUV, Provider: Jason Alex, Status: Pen, Time: 9:10 AM [facility] 250 DO Work Phone: Start: 01-23-2022 COVID-19 Vaccine (5 - Moderna series) COVID-19 Vaccine (5 - Moderna series) [facility] Start: 10-25-2021 FUV, Provider: Jason Alex, Status: Pen, Time: 10:00 AM FUV, Provider: Jason Alex, Status: Pen, Time: 10:00 AM [facility] DO Work Phone: Start: 04-25-2021 HOLTER MON, Provider : MIRIAM TOMPKINS VIDEO CAMERA OPERATOR 1,[id number], Status: Pen, [facility]: 10:00 AM [facility], Provider: MIRIAM TOMPKINS VIDEO CAMERA OPERATOR 1,[id number], Status: Pen, Time: 10:00 AM [facility] DO Work Phone: Start: 04-19-2021 FUV, Provider: Jason Alex, Status: Pen, Time: 11:20 AM FUV, Provider: Jason Alex, Status: Pen, Time: 11:20 AM -[facility] [place] Work Phone: Start: 07-02-2019 Pneumococcal Vaccine : 65+ Years (2 - PCV) Pneumococcal Vaccine: 65+ Years (2 - PCV) [facility] Start: 07-02-2019 Pneumococcal Vaccine : 65+ Years (2 of 2 - PCV) Pneumococcal Vaccine: 65+ Years (2 of 2 - PCV) [facility] Start: 1993 Screening for malign ant neoplasm of breast Mammogram [facility] Start: 02-08-1972 Urine screening for protein Diabetes: Urine Protein Screening [facility] Start: 1971 Hepatitis C screening Hepatitis C Sc [facility] Start: 1963 Diabetic foot examination Diabetes: Foot Exam [facility] Start: 1955 Hemoglobin A1c measurement Diabetes: Hemoglobin A1C [facility] Start: 1955 Lipid panel Lipid Panel [facility] Start: 1955 Medicare Annual Wellness Visit Medicare Annual Wellness Visit (AWV) [facility] Start: 1955 Screening for malign ant neoplasm of colon [facility] Start: 1955 Screening for osteoporosis Bone Density Scan [facility] Start: 1955 Thyroid stimulating hormone measurement TSH Level [facility] Immunizations Immunization Date Immunization Notes Care Provider Jean arreguin 11-30-2023 influenza virus vacc ine, unspecified formulation Francisco Mckeon [facility] 12-21-2022 influenza virus vacc ine, unspecified formulation Francisco Mckeon [facility] 12-21-2022 Influenza, Seasonal, Quadrivalent, Adjuvanted Jason Alex DO Work Phone: [facility] Work Phone: 12-21-2022 influenza, unspecifi ed formulation KAYLA MALIK [facility] 11-22-2022 RSV, 60 Years And Ol sneha (AREXVY) Jason Alex DO Work Phone: [facility] Work Phone: 12-20-2021 Fluzone High-Dose Quadrivalent 0.7 ML Intramuscular Suspension Prefilled Syringe Lamont Butler Work Phone: [facility] [employer] 250 DO Work Phone: 12-20-2021 influenza virus vacc ine, unspecified formulation Francisco Mckeon [facility] 11-28-2021 Moderna COVID-19 Biv al Booster 50 MCG/0.5ML Intramuscular Suspension [facility]ont Butler [facility] Work Phone: Comment on above: Result Comment: 2022: [id number] 11-23-2021 influenza virus vacc ine, unspecified formulation Francisco Mckeon [facility] 09-07-2022 influenza, seasonal, injectable Lamont Butler Work Phone: [facility] DO Work Phone: Comment on above: Series: 06-29-2021 Moderna COVID-19 Vac cine 100 MCG/0.5ML Intramuscular Suspension Lamont Butler Work Phone: [facility] 01-08-2021 Moderna COVID-19 Vac cine 100 MCG/0.5ML Intramuscular Suspension Lamont Butler Work Phone: [facility] Comment on above: Result Comment: 2022: [id number] 12-04-2020 Fluzone High-Dose Quadrivalent 0.7 ML Intramuscular Suspension Prefilled Syringe Lamont Butler Work Phone: [facility] DO Work Phone: 12-04-2020 influenza virus vacc ine, unspecified formulation Francisco Mckeon [facility] 05-25-2020 Moderna COVID-19 Vac cine 100 MCG/0.5ML Intramuscular Suspension Lamont Butler Work Phone: [facility] 04-26-2020 Moderna COVID-19 Vac cine 100 MCG/0.5ML Intramuscular Suspension Lamont Butler Work Phone: [facility] 12-01-2019 Fluzone High-Dose Quadrivalent 0.7 ML Intramuscular Suspension Prefilled Syringe Lamont Butler Work Phone: [facility] DO Work Phone: 12-01-2019 influenza virus vacc ine, unspecified formulation Francisco Mckeon [facility] 11-14-2018 influenza virus vacc ine, unspecified formulation Francisco Mckeon [facility] 11-14-2018 influenza, high dose seasonal, preservative-free Lamont E Butler Work Phone: [facility] [employer] DO Work Phone: 07-01-2018 pneumococcal polysaccharide vaccine, 23 valent Lamont Butler Work Phone: [facility] [employer] DO Work Phone: 05-21-2018 zoster vaccine recombinant Lamont Butler Work Phone: [facility] [employer] DO Work Phone: 01-28-2018 pneumococcal polysaccharide vaccine, 23 valent Lamont Butler Work Phone: [place] [address] DO Work Phone: 11-30-2017 influenza virus vacc ine, live, attenuated, for intranasal use Francisco Mckeon [facility] 11-30-2017 influenza, live, intranasal, quadrivalent Lmaont Butler Work Phone: [place] [address] DO Work Phone: 11-14-2017 influenza virus vacc ine, unspecified formulation Francisco Glofox [facility] 11-14-2017 influenza, injectabl e, quadrivalent, preservative free Lamont Butler Work Phone: [place] [address] DO Work Phone: 11-06-2017 typhoid vaccine, parenteral, other than acetone-killed, dried Lamont Butler Work Phone: [facility] [employer] DO Work Phone: 11-06-2017 zoster vaccine recombinant Lamont Butler Work Phone: [facility] [employer] DO Work Phone: 01-15-2017 tetanus toxoid, redu migel diphtheria toxoid, and acellular pertussis vaccine, adsorbed Lamont E Butler Work Phone: [place] [address] DO Work Phone: 12-12-2016 influenza virus vacc ine, unspecified formulation Francisco Mckeon [facility] 12-12-2016 influenza, injectabl e, quadrivalent, preservative free Lamont Lima Butler Work Phone: [place] [address] DO Work Phone: 12-08-2015 influenza virus vacc ine, unspecified formulation Francisco Mckeon [facility] 12-08-2015 influenza, injectabl e, quadrivalent, preservative free Lamont Holtight Work Phone: [place] [address] DO Work Phone: 04-20-2015 typhoid vaccine, parenteral, other than acetone-killed, dried Lamont Holtight Work Phone: [place] [address] DO Work Phone: 01-28-2014 zoster vaccine, live Lamont Lima Jay morgan Work Phone: [place] [address] DO Work Phone: 02-24-2009 novel influenza-H1N1 -09, preservative-free, injectable Lamont Holtight Work Phone: [place] [address] DO Work Phone: 12-07-2000 Hep A, unspecified formulation Francisco Mckeon [facility] 12-07-2000 hepatitis A vaccine, unspecified formulation Lamont Butler Work Phone: [place] [address] DO Work Phone: 05-30-2000 Hep A, unspecified formulation Francisco Mckeon [facility] 05-30-2000 hepatitis A vaccine, unspecified formulation Lamont Butler Work Phone: -[facility] DO Work Phone: Payers Date Payer Category Payer Unknown 2022 Private Health Insurance [id number] 2018 Medicare [id number] 1959 Medicare [id number] 1959 Self-pay [id number] 1959 Unknown [id number] 1953 Unknown [id number] 2.16 840.1.837944.3.579.2.356 1953 Unknown [id number] 2.16 840.1.487039.3.579.2. 1953 Unknown [id number] 2. 840.1.944352.3.579.2. 1953 Unknown [id number] 2. 840.1.217675.3.579.2. 1953 Unknown [id number] 2.16 840.1.933435.3.579.2. 1953 Unknown [id number] 2.16. 840.1.769238.3.579.2.356 1953 Unknown [id number] 2.16 840.1.772015.3.579.2.356 1953 Unknown [id number] 2.16 840.1.684023.3.579.2.356 1953 Unknown [id number] 2.16. 840.1.032614.3.579.2.356 1953 Unknown [id number] 2.16. 840.1.124137.3.579.2.356 1953 Unknown [id number] 2.16. 840.1.646781.3.579.2.356 1953 Unknown [id number] 2.16. 840.1.714377.3.579.2.356 1953 Unknown [id number] 2.16. 840.1.398626.3.579.2.356 1953 Unknown [id number] 2.16. 840.1.313091.3.579.2.356 1953 Unknown [id number] 2.16. 840.1.403797.3.579.2.356 1953 Unknown [id number] 2.16. 840.1.695771.3.579.2.356 1953 Unknown [id number] 2.16. 840.1.339373.3.579.2.356 1953 Unknown [id number] 2.16.84 0.1.019178.3.579.2.593 1953 Unknown [id number] 2.16.84 0.1.448619.3.579.2.593 1953 Unknown [id number] 2.16.84 0.1.476426.3.579.2.593 1953 Unknown [id number] 2.16.84 0.1.369790.3.579.2.593 1953 Unknown [id number] 2.16.84 0.1.208679.3.579.2.593 1953 Unknown [id number] 2.16.84 0.1.984966.3.579.2.593 1953 Unknown [id number] 2.16.84 0.1.132622.3.579.2.593 1953 Unknown [id number] 2.16.84 0.1.254506.3.579.2.593 1953 Unknown [id number] 2.16.84 0.1.809509.3.579.2.593 1953 Unknown [id number] 2.16.84 0.1.046285.3.579.2.593 1953 Unknown [id number] 2.16.84 0.1.132427.3.579.2.593 1953 Unknown [id number] 2.16.8 40.1.609018.3.579.2.1244 1953 Unknown [id number] 2.16.8 40.1.531200.3.579.2.1244 1953 Unknown [id number] 2.16.8 40.1.654625.3.579.2.727 1953 Unknown [id number] 2.16.8 40.1.257109.3.579.2.727 1953 Unknown [id number] 2.16.8 40.1.562929.3.579.2.727 1953 Unknown [id number] 2.16.8 40.1.289735.3.579.2.727 1953 Unknown [id number] 2.16.8 40.1.871528.3.579.2.727 1953 Unknown [id number] 2.16.8 40.1.483768.3.579.2.727 1953 Unknown [id number] 2.16.8 40.1.330490.3.579.2.727 1953 Unknown [id number] 2.16.8 40.1.490206.3.579.2.727 1953 Unknown [id number] 2.16.8 40.1.657053.3.579.2.727 1953 Unknown [id number] 2.16.8 40.1.528033.3.579.2.727 1953 Unknown [id number] 2.16.8 40.1.195526.3.579.2. 1953 Unknown [id number] 2.16.8 40.1.309390.3.579.2.72 1953 Unknown [id number] 2.16.8 40.1.225791.3.579.2. 1953 Unknown [id number] 2.16.8 40.1.490984.3.579.2. 1953 Unknown [id number] 2.16.8 40.1.584725.3.579.2 1953 Unknown [id number] 2.16.8 40.1.022886.3.579.2. 1953 Unknown [id number] 2.16.8 40.1.664223.3.579.2 1953 Unknown [id number] 2.16.8 40.1.775958.3.579.2 1953 Unknown [id number] 2.16.8 40.1.344756.3.579.2. 1953 Unknown [id number] 2.16.8 40.1.349891.3.579.2. 1953 Unknown [id number] 2.16.8 40.1.088684.3.579.2. 1953 Unknown [id number] 2.16.8 40.1.299240.3.579.2. 1953 Unknown [id number] 2.16.8 40.1.064514.3.579.2. 1953 Unknown [id number] 2.16.8 40.1.890107.3.579.2. 1953 Unknown [id number] 2.16.8 40.1.165862.3.579.2.727 1953 Unknown [id number] 2.16.8 40.1.853028.3.579.2.727 1953 Unknown [id number] 2.16.84 0.1.021441.3.579.2.1259 1953 Unknown [id number] 2.16.8 40.1.770021.3.579.2.727 1953 Unknown [id number] 2.16.8 40.1.219018.3.579.2.727 1953 Unknown [id number] 2.16.8 40.1.662626.3.579.2.727 1953 Unknown [id number] 2.16.8 40.1.697183.3.579.2.727 1953 Unknown [id number] 2.16.8 40.1.712043.3.579.2.727 Private Health Insurance [id number] Unknown [id number] 2.16.8 40.1.722231.3.579.2.531 Social History Date Type Detail Facility Start: 01-23-2023 No alcohol use No alcohol use -Nor [facility] 250 DO Work Phone: Tobacco smoking status No Smokin g Status Entered [facility] Start: 01-23-2023 Sex Assigned At Female F [facility] Start: 02-24-2021 End: 09-30-2024 Tobacco smoking status KYIS Never smoked tobacco (finding) [facility] Start: 1955 Sex Assigned At Female F [facility] Start: 12-11-2022 End: 01-23-2023 Tobacco use and exposure Smokeless tobacco non-user [facility] Work Phone: Start: 01-23-2023 Alcohol intake Lifetime non-d alexandra (finding) [facility] Work Phone: Start: 1955 Sex Assigned At Not on file [facility] Work Phone: Start: 01-13-2023 End: 01-23-2023 Exposure to SARS-CoV-2 (event) Not sure [facility] Tobacco smoking status Never [facility] Sexual Orientation [facility] Start: 06-06-2018 Sex Female (finding) [facility] Medical Equipment Procedure Code Equipment Code Equipment Origin al Text Equipment Identifier Dates CATARACT EXTRACT ION W/ INTRAOCULAR LENS Zahler DO, Bita 5/6/20 Unknown Eye L FDA Start: 07-23-2019 CATARACT EXTRACT ION W/ INTRAOCULAR LENS Zahler DO, Bita 5/6/20 Unknown Eye L FDA Start: 07-23-2019 See Instructions , BD ultra fine mini pen needles 31G X 3/16 Use 6 times a day to inject insulin Dx E10.8, Supply Start: 07-17-2022 CATARACT EXTRACT ION W/ INTRAOCULAR LENS Zahler DO, Bita 5/6/20 Unknown Eye L FDA Start: 07-23-2019 See Instructions , BD ultra fine mini pen needles 31G X 3/16 Use 6 times a day to inject insulin Dx E10.8, Supply Start: 07-17-2022 CATARACT EXTRACT ION W/ INTRAOCULAR LENS Zahler DO, Bita 5/6/20 Unknown Eye L FDA Start: 07-23-2019 See Instructions , BD ultra fine mini pen needles 31G X 3/16 Use 6 times a day to inject insulin Dx E10.8, Supply Start: 07-17-2022 CATARACT EXTRACT ION W/ INTRAOCULAR LENS Zahler DO, Bita 5/6/20 Unknown Eye L FDA Start: 07-23-2019 See Instructions , BD ultra fine mini pen needles 31G X 3/16 Use 6 times a day to inject insulin Dx E10.8, Supply Start: 07-17-2022 Pen Needle 31G x 6mm, See Instructions, 100 EA, 1, Pen Needle 31G x 6mm. Pt needs 5 boxes of 3 months supply., [id number], Supply, 154, cm, 01/01/24 9:31:00 EDT, Height/Length Dosing, 66.8, kg, 01/01/24 9:31:00 EDT, Weight Dosing Start: 01-01-2024 CATARACT EXTRACT ION W/ INTRAOCULAR LENS Karyhler Cyndi CHEEKBita 07/23/19 Unknown Eye L FDA Start: 07-23-2019 See Instructions , BD ultra fine mini pen needles 31G X 3/16 Use 6 times a day to inject insulin Dx E10.8, Supply Start: 07-17-2022 Pen Needle 31G x 6mm, See Instructions, 100 EA, 1, Pen Needle 31G x 6mm. Pt needs 5 boxes of 3 months supply., [id number], Supply, 154, cm, 01/01/24 9:31:00 EDT, Height/Length Dosing, 66.8, kg, 01/01/24 9:31:00 EDT, Weight Dosing Start: 01-01-2024 CATARACT EXTRACT ION W/ INTRAOCULAR LENS Alexer DO, Bita 07/23/19 Unknown Eye L FDA Start: 07-23-2019 See Instructions , BD ultra fine mini pen needles 31G X 3/16 Use 6 times a day to inject insulin Dx E10.8, Supply Start: 07-17-2022 Pen Needle 31G x 6mm, See Instructions, 100 EA, 1, Pen Needle 31G x 6mm. Pt needs 5 boxes of 3 months supply., [id number], Supply, 154, cm, 01/01/24 9:31:00 EDT, Height/Length Dosing, 66.8, kg, 01/01/24 9:31:00 EDT, Weight Dosing Start: 01-01-2024 CATARACT EXTRACT ION W/ INTRAOCULAR LENS Alexer DO, Bita 07/23/19 Unknown Eye L FDA Start: 07-23-2019 See Instructions , BD ultra fine mini pen needles 31G X 3/16 Use 6 times a day to inject insulin Dx E10.8, Supply Start: 07-17-2022 Pen Needle 31G x 6mm, See Instructions, 100 EA, 1, Pen Needle 31G x 6mm. Pt needs 5 boxes of 3 months supply., [id number], Supply, 154, cm, 01/01/24 9:31:00 EDT, Height/Length Dosing, 66.8, kg, 01/01/24 9:31:00 EDT, Weight Dosing Start: 01-01-2024 CATARACT EXTRACT ION W/ INTRAOCULAR LENS Karyhler DO, Bita 07/23/19 Unknown Eye L FDA Start: 07-23-2019 See Instructions , BD ultra fine mini pen needles 31G X 3/16 Use 6 times a day to inject insulin Dx E10.8, Supply Start: 07-17-2022 Pen Needle 31G x 6mm, See Instructions, 100 EA, 1, Pen Needle 31G x 6mm. Pt needs 5 boxes of 3 months supply., [id number], Supply, 154, cm, 01/01/24 9:31:00 EDT, Height/Length Dosing, 66.8, kg, 01/01/24 9:31:00 EDT, Weight Dosing Start: 01-01-2024 CATARACT EXTRACT ION W/ INTRAOCULAR LENS Karyhler DO, Bita 07/23/19 Unknown Eye L FDA Start: 07-23-2019 See Instructions , BD ultra fine mini pen needles 31G X 3/16 Use 6 times a day to inject insulin Dx E10.8, Supply Start: 07-17-2022 Pen Needle 31G x 6mm, See Instructions, 100 EA, 1, Pen Needle 31G x 6mm. Pt needs 5 boxes of 3 months supply., [id number], Supply, 154, cm, 01/01/24 9:31:00 EDT, Height/Length Dosing, 66.8, kg, 01/01/24 9:31:00 EDT, Weight Dosing Start: 01-01-2024 CATARACT EXTRACT ION W/ INTRAOCULAR LENS Karyhler DO, Bita 20 Unknown Eye L FDA Start: 07-23-2019 See Instructions , BD ultra fine mini pen needles 31G X 3/16 Use 6 times a day to inject insulin Dx E10.8, Supply Start: 07-17-2022 Pen Needle 31G x 6mm, See Instructions, 100 EA, 1, Pen Needle 31G x 6mm. Pt needs 5 boxes of 3 months supply., [id number], Supply, 154, cm, 01/01/24 9:31:00 EDT, Height/Length Dosing, 66.8, kg, 10/15/24 9:31:00 EDT, Weight Dosing Start: 01-01-2024 CATARACT EXTRACT ION W/ INTRAOCULAR LENS Zahler DO, Bita 5/6/20 Unknown Eye L FDA Start: 07-23-2019 See Instructions , BD ultra fine mini pen needles 31G X 3/16 Use 6 times a day to inject insulin Dx E10.8, Supply Start: 07-17-2022 Pen Needle 31G x 6mm, See Instructions, 100 EA, 1, Pen Needle 31G x 6mm. Pt needs 5 boxes of 3 months supply., [id number], Supply, 154, cm, 01/01/24 9:31:00 EDT, Height/Length Dosing, 66.8, kg, 01/01/24 9:31:00 EDT, Weight Dosing Start: 01-01-2024 CATARACT EXTRACT ION W/ INTRAOCULAR LENS Zahler DO, Bita 5/6/20 Unknown Eye L FDA Start: 07-23-2019 CATARACT EXTRACT ION W/ INTRAOCULAR LENS Zahler DO, Bita 5/6/20 Unknown Eye L FDA Start: 07-23-2019 [facility] DME Prescription, See Instructions, 5 EA, 3, BD ultra fine mini pen needles 31G X 3/16 Use 6 times a day to inject insulin Dx E10.8 5 boxes or pt needs 180 a month x3 months with 3 refills., [id number], Supply, 154, cm, 07/01/24 8:31:00 EDT, Height/Length Dosing, 63.7, kg, 07/01/24 8:31:00 EDT, Weight Dosing Start: 08-12-2024 Pen Needle 31G x 5mm, See Instructions, 100 EA, 1, Pen Needle 31G x 6mm. Pt needs 5 boxes of 3 months supply., [id number], Supply, 154, cm, 01/25/24 13:53:00 EST, Height/Length Dosing, 66.4, kg, 01/25/24 13:53:00 EST, Weight Dosing Start: 04-21-2024 Functional Status Date Assessment Result Facility 03-17-2024 Functional Status N/A [facility] 01-25-2024 Functional Status N/A [facility] 01-24-2024 Functional Status N/A [facility] 01-17-2024 Functional Status N/A [facility] 07-29-2023 Functional Status N/A [facility] Clinical Notes 05-07-2020 to 10-08-2024 Bita Fiore, DO - 08/12/2024 8:15 AM EDT Note Date & Type Note Facility 10-08-2024 Hospital Discharge instructions Patient Education 10/08/2024 12:18:18 Hematuria, Adult Hematuria, Adult Hematuria is blood in the urine. Blood may be visible in the urine, or it may be identified with a test. This condition can be caused by infections of the bladder, urethra, kidney, or prostate. Other possible causes include: Kidney stones. Cancer of the [...] painless or the blood stops without treatment. Blood in the urine, when it happens and then stops and then happens again, can be a symptom of a very serious condition, including cancer. There is no pain in the initial stages of many urinary cancers. Follow these instructions at home: Medicines Take dlvj-irp-wmmhcfe and prescription medicines only as told by your health care provider. If you were prescribed an antibiotic medicine, take it as told by your health care provider. Do not stop taking the antibiotic even if you start to feel better. Eating and drinking Drink enough fluid to keep your urine pale yellow. It is recommended that you drink 3 4 quarts (2.8 3.8 L) a day. If you have been diagnosed with an infection, drinking cranberry juice in addition to large amounts of water is recommended. Avoid caffeine, [...] or the blood stops without treatment. Take ojye-brm-chuaupd and prescription medicines only as told by your health care provider. Drink enough fluid to keep your urine pale yellow. This information is not intended to replace advice given to you by your health care provider. Make sure you discuss any questions you have with your health care provider. Document Revised: 11/03/2020 Document Reviewed: 11/03/2020 [employer] Patient Education 2023 [email or web address] Follow Up Care 07/01/2024 10:12:14 With:Tyler SHANNON, SHAHBAZ White, URO Address: When: Unknown [facility] 10-08-2024 Note Patient Education Urology Hematuria, Adult Hematuria is blood in the urine. Blood may be visible in the urine, or it may be identified with a test. This condition can be caused by infections of the bladder, urethra, kidney, or prostate. Other possible causes include: ??? Kidney stones. ??? Cancer [...] painless or the blood stops without treatment. Blood in the urine, when it happens and then stops and then happens again, can be a symptom of a very serious condition, including cancer. There is no pain in the initial stages of many urinary cancers. Follow these instructions at home: Medicines ??? Take pfxu-ihs-cikrnaz and prescription medicines only as told by your health care provider. ??? If you were prescribed an antibiotic medicine, take it as told by your health care provider. Do not stop taking the antibiotic even if you [...] about any changes or any new symptoms. ??? It is up [...] the blood stops without treatment. ??? Take nrmy-ayy-nfwvopo and prescription medicines only as told by your health care provider. ??? Drink enough fluid to keep your urine pale yellow. This information is not intended to replace advice given to you by your health care provider. Make sure you discuss any questions you have with your health care provider. Document Revised: 11/03/2020 Document Reviewed: 11/03/2020 [employer] Patient Education ? 2023 [email or web address] [facility] 09-30-2024 Note Patient Education Endocrinology Diabetes Mellitus and Sick Day Management Make a plan for sick days as part of your plan to manage your diabetes. Being sick can cause stress and loss of body fluids (dehydration). These problems can cause your level of blood sugar (glucose) to rise. Common illnesses that can cause problems for people with diabetes mellitus include colds, fever, nausea, vomiting, diarrhea, and the flu. The following information offers guidance on how to care for yourself when you are sick with an illness that lasts for about 24 hours or less. Your health care provider may also give you more specific instructions. How to manage your blood glucose while sick ??? Check your blood glucose every 2?4 hours, or as often as told by your health care provider. ??? If you use insulin, take your usual dose. If your blood glucose is still too high, you may need to take an extra dose of insulin as told by your health care provider. ??? Know your treatment goals for sick days. Your target blood glucose levels may be different when you are sick. ??? If you use a diabetes medicine that you take by mouth (orally), keep taking your medicines. ??? Have a plan with your health care provider for how to take: ? Your oral diabetes medicines. ? Hormone medicines that you inject to help with your diabetes. Follow these instructions at home Check your ketones Ketones are chemicals created by the liver. ??? If you have type 1 diabetes, check your urine for ketones every 4 hours. ??? If you have type 2 diabetes, check your urine for ketones as often as told by your health care provider. Eating and drinking ??? Drink enough fluid to keep your urine pale yellow. If you have a fever, vomiting, or diarrhea, you can become dehydrated faster. ??? Do not drink alcohol, caffeine, or drinks with a lot of sugar. Follow instructions from your health care provider about what drinks to avoid. ??? When you are sick, you need to eat some form of carbohydrates (carbs). Eat 45?50 grams (45?50 g) of carbs every 3?4 hours until you feel better. All of the food and drink choices below have about 15 g of carbs in them. Plan ahead and keep some of these on hand so you have them if you get sick. ? 4?6 oz (120?177 mL) of a carbonated drink that contains sugar. This includes regular soda. Do not drink diet soda. Open the drink and let it sit at room temperature for a few minutes. This may make it easier to drink. ? 4 oz (120 g) regular gelatin dessert. ? 4 oz (120 mL) fruit juice. ? 4 oz (120 g) ice cream or frozen yogurt. ? 2 oz (60 g) sherbet. ? 1 slice bread or toast. ? 6 saltine crackers. ? 5 vanilla wafers. Medicines ??? Take kxkq-shp-lvmybia and prescription medicines only as told by your health care provider. ??? Check medicine labels for added sugars. Some medicines may contain sugar or types of sugars that can raise your blood glucose level. Contact a health care provider if: ??? You have been sick or have had a fever for 2 days or longer and you are not getting better. ??? Your blood glucose is at or above 240 mg/dL (13.3 mmol/L), even after you take an extra dose of insulin. ??? You vomit every time you drink fluids. ??? For more than 6 hours, you have: ? Nausea. ? Vomiting. ? Diarrhea. Get help right away if: ??? You have trouble breathing. ??? You have moderate or high levels of ketones in your urine. ??? You have a change in how you think, feel, or act (mental status). ??? You get symptoms of diabetic ketoacidosis. These include: ? Nausea. ? Vomiting. ? Excessive thirst. ? Excessive urination. ? Breath that smells fruity or sweet. ? Rapid breathing. ? Pain in the abdomen. ??? Your blood glucose is lower than 54 mg/dL (3.0 mmol/L). ??? You used emergency glucagon to treat low blood glucose. These symptoms may be an emergency. Get help right away. Call 911. ??? Do not wait to see if the symptoms will go away. ??? Do not drive yourself to the hospital. This information is not intended to replace advice given to you by your health care provider. Make sure you discuss any questions you have with your health care provider. Document Revised: 08/28/2022 Document Reviewed: 08/28/2022 [employer] Patient Education ? 2023 [email or web address] [facility] 09-08-2024 Note Patient Education Infectious Disease Insect Bite, Adult An insect bite can make your skin red, itchy, and swollen. An insect bite is different from an insect sting, which happens when an insect injects poison (venom) into the skin. Some insects can spread disease to people through a bite. However, most insect bites do not lead to disease and are not serious. What are the causes? Insects may bite for a variety of reasons, including: ??? Hunger. ??? To defend themselves. Insects that bite include: ??? Spiders. ??? Mosquitoes and flies. ??? Ticks and fleas. ??? Ants. ??? Kissing bugs. ??? Chiggers. What are the signs or symptoms? In many cases, symptoms last for 2?4 days. However, itching can last up to 10 days. Symptoms include: ??? Itching or pain in the bite area. ??? Redness and swelling in the bite area. ??? An open wound (skin ulcer). In rare cases, a person may have a severe allergic reaction (anaphylactic reaction) to a bite. Symptoms of an anaphylactic reaction may include: ??? Feeling professional system administrator the face (flushed). This may include redness. ??? Itchy, red, swollen areas of skin (hives). ??? Swelling of the eyes, lips, face, mouth, tongue, or throat. ??? Wheezing or difficulty breathing, speaking, or swallowing. ??? Dizziness, light-headedness, or fainting. ??? Abdominal symptoms like cramping, nausea, vomiting, or diarrhea. How is this diagnosed? This condition is usually diagnosed based on symptoms and a physical exam. During the exam, your health care provider will look at the bite and ask you what kind of insect bit you. How is this treated? Most insect bites are not serious. Symptoms often go away on their own and treatment is not usually needed. When treatment is recommended, it may include: ??? Applying ice to the affected area. ??? Applying steroid or other anti-itch creams, like calamine lotion, to the bite area. ??? Medicines called antihistamines to reduce itching. ??? You may also need: ? A tetanus shot if you are not up to date. ? Antibiotic cream or an oral antibiotic if the bite becomes infected (this is uncommon). Follow these instructions at home: Bite area care ??? Do not scratch the bite area. It may help to cover the bite area with a bandage or close-fitting clothing. ??? Keep the bite area clean and dry. Wash it every day with soap and water as told by your health care provider. ??? Check the bite area every day for signs of infection. Check for: ? More redness, swelling, or pain. ? Fluid or blood. ? Warmth. ? Pus or a bad smell. Managing pain, itching, and swelling ??? You may apply cortisone cream, calamine lotion, or a paste made of baking soda and water to the bite area as told by your health care provider. ??? If directed, put ice on the bite area. To do this: ? Put ice in a plastic bag. ? Place a towel between your skin and the bag. ? Leave the ice on for 20 minutes, 2?3 times a day. ? If your skin turns bright red, remove the ice right away to prevent skin damage. The risk of skin damage is higher if you cannot feel pain, heat, or cold. General instructions ??? Apply or take hbip-fzr-fhkduzs and prescription medicine only as told by your health care provider. ??? If you were prescribed antibiotics, take or apply them as told by your health care provider. Do not stop using the antibiotic even if you start to feel better. How is this prevented? To help reduce your risk of insect bites: ??? When you are outdoors, wear clothing that covers your arms and legs. This is especially important in the nailing machine feeder and evening. ??? Use insect repellent. The best insect repellents contain DEET, picaridin, oil of lemon eucalyptus (OLE), or [id number]. ??? Consider spraying your clothing with a pesticide called permethrin. Permethrin helps prevent insect bites. It works for several weeks and for up to 5?6 clothing washes. Do not apply permethrin directly to the skin. ??? If your home windows do not have screens, consider installing them. ??? If you will be sleeping in an area where there are mosquitoes, consider covering your sleeping area with a mosquito net. Contact a health care provider if: ??? Your bite area has signs of infection, such as: ? More redness, swelling, or pain. ? Fluid or blood. ? Warmth. ? Pus or a bad smell. ??? You have a fever. Get help right away if: ??? You have a rash. ??? You have muscle or joint pain. ??? You feel unusually tired or weak. ??? You have neck pain or a headache. ??? You develop symptoms of an anaphylactic reaction. These may include: ? Swelling of the eyes, lips, face, mouth, tongue, or throat. ? Flushed skin or hives. ? Wheezing. ? Difficulty breathing, speaking, or swallowing. ? Dizziness, light-headedness, or fainting. ? Abdominal pain, cramping, vomiting, or diarrhea. These symptoms may be an emergency. Get help (more content not included)... 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 documented in this encounter [facility] 07-21-[facility] Subjective Rafi Roper is a 69 y.o. year old female patient being seen to [facility] care. 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 [facility] 03-17-2024 Evaluation + Plan note Extrac sabiha from: Title:[facility] Clinic Note MAINOR Author:Maris Scott MD Date:03/17/24 Impression and Plan Assessment and Plan: Diagnosis: Vaginal atrophy ([id number] N95.2, Discharge, Medical), Urethral caruncle (ECY30-ML N36.2, Discharge, Medical), Microscopic hematuria (JFV85-JT R31.29, Discharge, Medical). 69-year-old female with history [...] Date:07/01/2024 08:30:00 AM Scheduled Provider:Francisco Mckeon MD Location:[facility] [place] Appointment Type: Open Diagnostic Tests Pending * Urine Cytology ([facility]) 03/17/24 Future Scheduled Tests Laboratory* Lipid Panel 07/27/23 Radiology* CT Urogram 03/18/24 [facility] 12-30-2024 Hospital Discharge instructions Patient Education 03/17/2024 [...] Address:Unknown When: Unknown Comments:Call for any problems. [facility] 12-30-2024 NoteProgress Note-Physician Patient: RAFI ROPER Age: [...] 1 month, then 2x a week afterwards, [id number], 154, cm, 01/25/24 13:53:00 EST, Height/Length Dosing, 66.4, kg, 01/25/24 13:53:00 EST, Weight Dosing... Flonase 0.05 mg/inh [place]: 2 spray(s), Nasal, Daily, 16 gram, Refill(s) 0, each nostril, [id number], 154, cm, 09/10/23 11:04:00 EDT, Height/Length Dosing, 64, kg, 09/10/23 11:04:00 EDT, Weight Dosing Freestyle [place] Flash Glucose Monitoring 14 Day System (Sensor): Freestyle [place] Flash Glucose Monitoring 14 Day System (Sensor), See Instructions, 6 EA, 11, Freestyle [place] 2 Flash Glucose Monitoring 14 Day System (Sensor). Replace sensor every 14 days., [id number], Supply, 154.4, cm, 07/03/23 10:36:00 EDT... Lantus Solostar Pen 100 units/mL subcutaneous solution: See Instructions, INJECT 15 UNITS SUBCUTANEOUSLY IN THE MORNING AND 17 UNITS IN THE EVENING, # 30 Unspecified/Unknown, Refills(s) 1, Pharmacy: [id number], 154, cm, 01/25/24 13:53:00 EST, Height/Length Dosing, 66.4, kg, 01/25/24 13:53:00 EST, Weig... Pen Needle 31G x 6mm: Pen Needle 31G x 6mm, See Instructions, 100 EA, 1, Pen Needle 31G x 6mm. Pt needs 5 boxes of 3 months supply., [facility] #[id number], Supply, 154, cm, 01/01/24 9:31:00 EDT, Height/Length Dosing, 66.8, kg, 01/01/24 9:31:00 EDT, Weight Dosing Questran 4 g/9 g oral powder: = 1 packet(s), Oral, BID, # 60 EA, Refills(s) 0, [id number], 164, cm, 01/24/24 8:54:00 EST, Height/Length Dosing, 66, kg, 01/24/24 8:54:00 EST, Weight Dosing Zetia 10 mg Tab: 10 mg = 1 tab(s), Oral, Daily, # 90 tab(s), Refills(s) 1, [id number], 154, cm, 09/10/23 11:04:00 EDT, Height/Length Dosing, 64, kg, 09/10/23 11:04:00 EDT, Weight Dosing atorvastatin 80 mg Tab: 80 mg = 1 tab(s), Oral, Daily, # 90 tab(s), Refills(s) 3, [id number], 154, cm, 07/29/23 12:14:00 EDT, Height/Length Dosing, 63.5, kg, 07/29/23 12:14:00 EDT, Weight Dosing fluticasone Nasal 0.05 mg/inh [place]: See Instructions, 48 mL, Refill(s) 1, USE 2 SPRAYS IN EACH NOSTRIL ONCE A DAY, [id number], 154, cm, 09/10/23 11:04:00 EDT, Height/Length Dosing, 64, kg, 09/10/23 11:04:00 EDT, Weight Dosing gabapentin 300 mg Cap: 300 mg = 1 cap(s), Oral, Once a day (at bedtime), # 90 cap(s), Refills(s) 3,[id number], 154, cm, 07/29/23 12:14:00 EDT, Height/Length Dosing, 63.5, kg, 07/29/23 12:14:00 EDT, Weight Dosing hydrochlorothiazide 12.5 mg Cap: 12.5 mg = 1 cap(s), Oral, Daily, # 90 cap(s), Refills(s) 3, [id number], 154, cm, 01/25/24 13:53:00 EST, Height/Length Dosing, 66.4, kg, 01/25/24 13:53:00 EST, Weight Dosing levothyroxine 50 mcg (0.05 mg) Tab: 50 mcg = 1 tab(s), Oral, Daily, # 90 tab(s), Refills(s) 3, [id number], 154.4, cm, 03/01/23 15:22:00 EST, Height/Length Dosing, 62.7, kg, 03/01/2315:22:00 EST, Weight Dosing losartan 50 mg Tab: 50 mg = 1 tab(s), Oral, BID, # 180 tab(s), Refills(s) 1, Pharmacy: [id number], 154, cm, 01/01/24 9:31:00 EDT, Height/Length Dosing, 66.8, kg, 01/01/24 9:31:00 EDT, Weight Dosing magnesium oxide 400 mg Tab: See Instructions, TAKE 1 TABLET BY MOUTH EVERY DAY, # 90 tab(s), Refills(s) 3, Pharmacy: [id number], 154, cm, 09/10/23 11:04:00 EDT, Height/Length Dosing, 64, kg, 09/10/23 11:04:00 EDT, Weight Dosing metformin 500 mg ER Tab: 500 mg = 1 tab(s), Oral, Daily, # 90 tab(s), Refills(s) 3, Pharmacy: [facility] #[id number], 154.4, cm, 04/23/23 9:26:00 EST, Height/Length Dosing, 63.5, kg, 04/23/23 9:26:00 EST, Weight Dosing metoprolol 100 mg ER Tab: 100 mg = 1 tab(s), Oral, Daily, # 30 tab(s), Refills(s) 6, Pharmacy: [facility] #[id number], 154, cm, 07/27/23 10:05:00 EDT, Height/Length [...] Plan Assessment and Plan: Diagnosis: Vaginal atrophy (HKE59-KH N95.2, Discharge, Medical), Urethral caruncle (HQO76-TV N36.2, Discharge, Medical), Microscopic hematuria (ODB00-MF R31.29, Discharge, Medical). 69-year-old female with history of chronic (more content not included)...[facility]:Result Comment: Electronically Signed By: Tyler SHANNON, Maris Lang.elliot\Date and Time Signed: 03/17/24 [id number] Note Patient Education Cystoscopy ??? Voiding after [...] if you have a fever over 100 degrees.[facility] 01-17-2024 Hospital Discharge instructions Patient Education 01/17/2024 [...] Follow these instructions at home: Medicines Take fojb-moi-kshpdpy and prescription medicines only as told by [...] or the blood stops without treatment. Take ycfd-kan-pdlywkf and prescription medicines only as told by your health care provider. Drink enough fluid to keep your urine pale yellow. This information is not intended to replace advice given to you by your health care provider. Make sure you discuss any questions you have with your health care provider. Document Revised: 11/03/2020 Document Reviewed: 11/03/2020 [employer] Patient Education 2023 [email or web address]. Follow Up Care 01/02/2024 10:16:49 With:KAYLA GEORGE PA-C, URL Address: [address] [place] [address] When: Unknown [facility] 10-31-2024 NotePatient Education Urology Hematuria, Adult Hematuria [...] these instructions at home: Medicines ??? Take vunb-toz-qnriwcp and prescription medicines only as told by [...] the blood stops without treatment. ??? Take muiu-dho-luaeqpt and prescription medicines only as told by your health care provider. ??? Drink enough fluid to keep your urine pale yellow. This information is not intended to replace advice given to you by your health care provider. Make sure you discuss any questions you have with your health care provider. Document Revised: 11/03/2020 Document Reviewed: 11/03/2020 [employer] Patient Education ? 2023 [email or web address].[facility] 10-03-2023 NoteNurse Consultation Note Reason for Visit [...] 1 tab(s), Oral, Once Flonase 0.05 mg/inh [place], 2 spray(s), Nasal, Daily fluticasone Nasal 0.05 mg/inh [place], See Instructions FreeConscious Boxe Flash Glucose Monitoring 14 Day System (Sensor), [...] virus vaccine, inactivated 12/20/2021 Recorded SARS-CoV-2 (COVID-19) [id number].[id number] 11/28/2021 Recorded 2022-06-29: TPV65 influenza virus vaccine, [...] 12/07/2000 Recorded Hep A, unspecified formulation 05/30/2000 [facility]-03-2023 NoteNurse Consultation Note Reason for Visit [...] 1 tab(s), Oral, Once Flonase 0.05 mg/inh [place], 2 spray(s), Nasal, Daily fluticasone Nasal 0.05 mg/inh [place], See Instructions Freestyle [place] Flash Glucose Monitoring [...] virus vaccine, inactivated 12/20/2021 Recorded SARS-CoV-2 (COVID-19) [id number].[id number] 11/28/2021 Recorded 2022-06-29: TPV65 influenza virus vaccine, [...] 12/07/2000 Recorded Hep A, unspecified formulation 05/30/2000 [facility]23 Hospital Discharge instructions Patient Education 07/29/2023 [...] follow-up visits. This is important. Medicines Take smdv-bua-nmdizzx and prescription medicines only as told by [...] provider. Document Revised: 01/10/2022 Document Reviewed: 01/10/2022 [employer] Patient Education 2022 [email or web address]. Follow Up Care 07/29/2023 11:49:41 With:Janes Rivera Address: [address] [place] [phone] Business (1) When:08/01/2023 14:03:01 Comments:Make sure to take your blood pressure twice a day as instructed and when you have symptoms and follow-up with Dr. Rivera. Return to the emergency room if you develop chest pain, dizziness, headache or any new symptoms. With:Francisco Mckeon Address:Unknown When:Within 3 Day(s) [facility]05-12-2024 Evaluation + Plan noteExtracted from: Title:ED Note Author:Sharda Joaquin, Alise Odonnell te:07/29/23 1. Hypertension (I10: Essent ial (primary) hypertension) Orders: Basic Metabolic Panel CBC w/ Auto Diff eGFR Extra Blue Tube Extra SST Tube Hepatic Function Panel Saline Lock Insert Troponin 0 Hr. Troponin 1 Hr. Troponin 3 Hr. Troponin 6 Hr. Future Appointments Appointment Date:01/01/2024 09:15:00 AM Scheduled Provider:Francisco Mckeon MD Location:[facility] [place] Appointment Type: Open Appointment Date:01/25/2024 01:45:00 PM Scheduled Provider:Janes Rivera MD [facility] Appointment Type:Cardiology Follow Up (FT) Future Scheduled Tests Laboratory* Lipid Panel 07/27/23 [facility]11-07-2023 History of Present illness Narrative* Jason Alex, DO - 01/23/2023 1:10 PM EST Subjective Rafi Roper is a 67 y.o. female Chief Complaint Follow-up 67-year-old female returns for annual follow-up she is doing very well she has had no cardiovascular events or symptoms, nitrate usage or hospitalizations over the past 1 year. She sustained [place] with failed PCI of the circumflex in 2020 and went on for three-vessel CABG in January 2021. Underlying comorbidities continue to include hypertension that slightly elevated today, hyperlipidemia and diabetes mellitus. Her last lipid panel from July 2022 is reviewed and in excellent shape. Wedo not need any further lipid assessment until [...] use of insulin (CMS/HCC) [facility] Work Phone: [phone]) 217-978111-07-2023 Instructions* Patient Instructions* Anastasiia Berg LPN - [...] time of your visit. [facility] Work Phone: 1(705) 765-139106-23-2021 NoteHNO ID: [id number] Author: Lela Enriquez MD Service: ? Author Type: Physician Type: Progress Notes Filed: 09/30/2020 3:09 PM Note Text: [facility] Virtual Follow-Up Visit We had a virtual visit conducted via Switchboard. I received consent from the patient to [...] DATE OF EXAM: Sep 01 2020 10:36AM [facility] 0295 - MRI BRAIN WO/W IVCON / PROCEDURE REASON: Benign neoplasm of meninges (HCC) * * * * Physician Interpretation * * * * EXAMINATION: MRI BRAIN WO/W IVCON HISTORY: Benign neoplasm of meninges (HCC). This information is taken directly from the surgical orderly system. TECHNIQUE: Routine brain MRI protocol without and with contrast including diffusion and gradient echo images. MQ: MRBWOW_2 Contrast: 13 mL Dotarem IV COMPARISON: None. RESULT: Acute Change: There is no evidence of an acute intracranial process. Hemorrhage: No evidence of prior parenchymal hemorrhage on SWI. Mass Lesion/ Mass Effect: There is a stabl (more content not included)... [facility]02-19-2021 NoteHNO ID: [id number] Author: Lela Enriquez Service: ? Author Type: Physician Type: Progress Notes Filed: 05/07/2020 10:37 AM Note Text: BB OUTPATIENT CONSULTATION [facility] CONSULTATION [...] more sinister/rapidly growing intra (more content not included)...[facility] note Future Appointments Appointment Date:11/02/2021 08:15:00 AM Scheduled Provider:Maris Scott MD Location:[facility] Appointment Type:URO New Patient Diagnostic Tests Pending * Calculi Analysis Urinary [facility]30/21 [facility] Future Appointments Appointment Date:01/01/2024 09:15:00 AM Scheduled Provider:Francisco Mckeon MD Location:[facility] [place] Appointment Type:FM Open [facility] Future Appointments Appointment Date:01/01/2024 09:15:00 AM Scheduled Provider:Francisco Mckeon MD Location:[facility] [place] Appointment Type:FM Open Appointment Date:01/25/2024 01:45:00 PM Scheduled Provider:Janes Rivera MD [facility] Appoint[facility] Type:Cardiology Follow Up (FT) Future Scheduled Tests Laboratory* Lipid Panel 07/27/23 [facility] Future Appointments Appointment Date:01/25/2024 01:45:00 PM Scheduled Provider:Janes Rivera MD [facility] Appointment Type:Cardiology Follow Up (FT) Appointment Date:07/01/2024 08:30:00 AM Scheduled Provider:Francisco Mckeon MD Location:[facility] [place] Appointment Type: Open Diagnostic Tests Pending * Urine Culture 01/01/24 Future Scheduled Tests Laboratory* Lipid Panel 07/27/23 Radiology* US PVR Lower EXT Complete Bilat 01/01/24 [facility] evaluation + Plan note Future Appointments Appointment Date:01/17/2024 12:40:00 PM Scheduled Provider:KAYLA GEORGE PA-C Location:[facility] Appointment Type:URO Complex Office Visit Appointment Date:01/24/2024 08:45:00 AM Scheduled Provider:Raman Garcia MD Location:[facility] Appointment Type:[facility] New Patient Appointment Date:01/25/2024 01:45:00 PM Scheduled Provider:Janes Rivera MD Location:[facility] Appointment Type:Cardiology Follow Up (FT) Appointment Date:07/01/2024 08:30:00 AM Scheduled Provider:Francisco Mckeon MD Location:[facility] [place] Appointment Type: Open Future Scheduled Tests Laboratory* Lipid Panel 07/27/23 [facility] evaluation + Plan note Future Appointments Appointment Date:01/24/2024 08:45:00 AM Scheduled Provider:Raman Garcia MD Location:[facility] Appointment Type:[facility] New Patient Appointment Date:01/25/2024 01:45:00 PM Scheduled Provider:Janes Rivera MD Location:[facility] Appointment Type:Cardiology Follow Up (FT) Appointment Date:07/01/2024 08:30:00 AM Scheduled Provider:Francisco Mckeon MD Location:[facility] [place] Appointment Type:FM Open Future Scheduled Tests Laboratory* Lipid Panel 07/27/23 [facility] evaluation + Plan note Future Appointments Appointment Date:01/24/2024 08:45:00 AM Scheduled Provider:Raman Garcia MD Location:[facility] Appointment Type:[facility] New Patient Appointment Date:01/25/2024 01:45:00 PM Scheduled Provider:Janes Rivera MD Location:[facility] Appointment Type:Cardiology Follow Up (FT) Appointment Date:07/01/2024 08:30:00 AM Scheduled Provider:Francisco Mckeon MD Location:[facility] [place] Appointment Type:FM Open Diagnostic Tests Pending * Urine Culture 01/17/24 Future Scheduled Tests Laboratory* Lipid Panel 07/27/23 [facility] evaluation + Plan note Future Appointments Appointment Date:01/25/2024 01:45:00 PM Scheduled Provider:Janes Rivera MD Location:[facility] Appointment Type:Cardiology Follow Up (FT) Appointment Date:03/12/2024 11:00:00 AM Scheduled Provider: Location:[facility] Appointment Type:Urology CALL PAT FT Appointment Date:03/17/2024 09:15:00 AM Scheduled Provider: Location:[facility] Appointment Type:Urology FT Appointment Date:07/01/2024 08:30:00 AM Scheduled Provider:Francisco Mckeon MD Location:[facility] [place] Appointment Type:FM Open Future Scheduled Tests Laboratory* Lipid Panel 07/27/23 [facility] Evaluation + Plan note Future Appointments Appointment Date:03/12/2024 11:00:00 AM Scheduled Provider: Location:[facility] Appointment Type:Urology CALL PAT FT Appointment Date:03/17/2024 09:15:00 AM Scheduled Provider: Location:[facility] Appointment Type:Urology FT Appointment Date:07/01/2024 08:30:00 AM Scheduled Provider:Francisco Mckeon MD Location:[facility] [place] Appointment Type:FM Open Future Scheduled Tests Laboratory* Lipid Panel 07/27/23 [facility] evaluation + Plan note Future Appointments Appointment Date:07/01/2024 08:30:00 AM Scheduled Provider:Francisco Mckeon MD Location:[facility] [place] Appointment Type: Open Future Scheduled Tests Laboratory* Lipid Panel 07/27/23 [facility] evaluation + Plan note Future Appointments Appointment Date:09/30/2024 08:40:00 AM Scheduled Provider:Francisco Mckeon MD Location:[facility] [place] Appointment Type:FM Open Appointment Date:10/08/2024 10:45:00 AM Scheduled Provider:Maris Scott MD Location:[facility] Appointment Type:URO Office Visit [facility] evaluation noteNo assessment information available [facility] Work Phone: Evaluation note* Diagnosis Arteriosclerotic heart disease (ASHD)- Primary Coronary atherosclerosis of unspecified type of vessel, eek or graft History of myocardial infarction Hyperlipidemia, unspecified hyperlipidemia type Essential hypertension, benign S/P CABG x 3 Postsurgical aortocoronary bypass status Paroxysmal atrial fibrillation ([facility]/HCC) Atrial fibrillation Other specified diabetes mellitus with other specified complication, with long- term current use of insulin ([facility]) [facility] Work Phone: Evaluation note* Diagnosis 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 type 1 diabetes mellitus (CMS/HCC)- Primary Bilateral posterior capsular opacification Unspecified after-cataract Diplopia Dry eyes Unspecified tear film insufficiency [facility] Narrative No data available for this section [facility] No data available for this section [facility] No data available for this section [facility] for [facility] (narrative)* Consultation (Routine) - Authorized Specialty Diagnoses / Procedures Referred By Contac t Referred To Contact Cardiology Diagnoses Arteriosclerotic heart disease (ASHD) Procedures Follow Up In Cardiology Jason Alex DO [facility] [address], [address] [address] Jason Alex DO [facility] [address], [address] [address] Referral ID Status Reason Start Date Expiration Date V isits Requested Visits Authorized [id number] Authorized 01/23/2023 01/23/2024 1 1 [facility] Work Phone: Summary Purpose Family History No Family History Records FoundUnknown Family Member Name Dates Details No pertinent [...] Unknown mother Parkinson's disease Unknown Advance Directives No Advanced Directives Records Found Advance Directive Response Recorded Date/ Time Advance Directives No December 19, 2016 9:25am Chief Complaint * RAFI ROPER is being seen for follow-up of a hospitalization for CABG. * Patient is a 66-year-old female who returns following recent non-ST elevation [place], and three-vessel urgent bypass surgery. All this [...] section and content) DATE CREATED AUTHOR 09/02/2020 [facility] DATE CREATED AUTHOR AUTHOR'S ORGANIZ ATION 04/15/2021 [facility] DATE CREATED AUTHOR AUTHOR'S ORGANIZ ATION 01/18/2022 [facility] DATE CREATED AUTHOR AUTHOR'S ORGANIZ ATION 01/18/2022 [employer] DATE CREATED AUTHOR AUTHOR'S ORGANIZ ATION 05/20/2022 [facility] DATE CREATED AUTHOR AUTHOR'S ORGANIZ ATION 03/21/2023 [facility] DATE CREATED AUTHOR AUTHOR'S ORGANIZ ATION 01/05/2024 [facility] DATE CREATED AUTHOR AUTHOR'S ORGANIZ ATION 01/19/2024 [facility] DATE CREATED AUTHOR AUTHOR'S ORGANIZ ATION 01/21/2024 [facility] DATE CREATED AUTHOR AUTHOR'S ORGANIZ ATION 01/21/2024 [facility] DATE CREATED AUTHOR AUTHOR'S ORGANIZ ATION 01/29/2024 [facility] DATE CREATED AUTHOR AUTHOR'S ORGANIZ ATION 03/19/2024 [facility] DATE CREATED AUTHOR AUTHOR'S ORGANIZ ATION 03/27/2024 [facility] DATE CREATED AUTHOR AUTHOR'S ORGANIZ ATION 07/02/2024 [facility] DATE CREATED AUTHOR AUTHOR'S ORGANIZ ATION 08/15/2024 [facility] DATE CREATED AUTHOR AUTHOR'S ORGANIZ ATION 08/23/2024 [facility] DATE CREATED AUTHOR AUTHOR'S ORGANIZ ATION 10/04/2024 [facility] DATE CREATED AUTHOR AUTHOR'S ORGANIZ ATION 10/09/2024 [facility] Reason for Visit (unrecogniz ed section and [...] Francisco Mckeon MD Primary Care Provider Active 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 Relationship Specialty Start Date End Date Francisco Mckeon MD [address] [place] [address] [place] [address] PCP - General Family Medicine 01/23/23 Team Status: Inactive Member Role Status Dates Francisco Mckeon MD Primary Care Provider Active Start: January 17, 2024 End: January 17, 2024 Referral Self Attending Provider Active Start: O ctober 2023 End: January 17, 2024 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 Relationship Specialty Start Date End Date Francisco Mckeon MD PCP - General Family Medicine 12/11/22 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 Relationship Specialty Start Date End Date Francisco [...] BE BASED ON THE PRIMARY CLINICAL RECORDS. [employer] provides no warranty or guarantee of the accuracy or completeness of information in this document.
[2024-10-18 07:06] LABS: Cholesterol 101 mg/dL (<=200); HDL Cholesterol 51 mg/dL (40-60); Triglycerides 168 mg/dL (<=150); VLDL CHOLESTEROL 33.6 mg/dL
== END 2024-10-18 06:32 | disposition home or self-care (01) ==
PROVIDERS: PCP Family Medicine; Visit Provider Internal Medicine Interventional Cardiology
DX: E78.5 Hyperlipidemia, unspecified (principal); I25.10 Atherosclerotic heart disease of native coronary artery without angina pectoris; I10 Essential (primary) hypertension
CPT/HCPCS: 36415; 80061

== ENCOUNTER 2025-01-23 08:13 | Outpatient (OUT) | payer MEDICARE, OTHER, SELFPAY ==
--- OUTSIDE RECORDS SUMMARY | 2025-01-23 08:18 | XMS_ITS | CCD ---
Author Organization [facility] [place] Care Team Providers Care Leasing Agent Name Role Phone Unavailable Unavailable Lamont Butler Unavailable LAMONT BUTLER Primary Care Physician [phone] MD Lamont Butler Primary Care Provider [phone] MD Lamont Butler Referring Provider [phone] Self, Referral Attending Provider Unavailable Dr. Jason [...] NEWELL Consulting Unavailable LUKE ., DR LAMONT Lmia Primary Care Unavailable LUCILA KNIGHT Consulting Unavailable [...] BUTLER ., DR LAMONT Lima Consulting Unavailable BULTER ., DR LAMONT Lima Admitting Unavailable BUTLER ., DR LAMNOT Lima Attending Unavailable BUTLER ., DR LAMONT [...] Provider Francisco Mckeon MD Primary Care Provider [phone] JASON ALEX Attending Unavailable FRANCISCO MCKEON Primary Care Unavailable JASON ALEX Referring Unavailable FRANCISCO MCKEON Primary Care Unavailable Francisco Mckeon. Primary Care Physician MD Francisco Mckeon Primary Care Provider [phone] Self, Referral Attending Provider Unavailable KAYLA GEORGE [...] Unavailable MD Janes Rivera Admitting Unavailable MD Janse Rivera Attending Unavailable Francisco Mckeon Attending Unavailable Francisco Mckeon Admitting Unavailable Hajdari, Astrit H Attending Unavailable Francisco Mckeon Attending Unavailable Francisco Mckeon Attending Unavailable Francisco Mckeon Attending Unavailable Francisco Mckeon ECristal Attending Unavailable Francisco Mckeon ECristal Attending Unavailable Lue, Maris MCristal Referring Unavailable Lue, Maris MCristal Attending Unavailable Lue, Maris M. Admitting Unavailable Lue, Maris MCristal Admitting Unavailable Lue, Maris MCristal Referring Unavailable Lue, Maris MCristal Attending Unavailable Lue, Maris M. Admitting Unavailable Lue, Maris M. Attending Unavailable Lue, Maris M. Referring Unavailable Francisco Mckeon Attending Unavailable Francisco Mckeon Referring Unavailable MALIK, KAYLA E Attending Unavailable Francisco Mckeon Admitting Unavailable Francisco Mckeon Attending Unavailable MD Janes Rivera Admitting Unavailable MD Janes Rivera Attending Unavailable Raman Garcia. Attending Unavailable Francisco Mckeon MD Primary Care Provider [phone] BITA FIORE Attending Unavailable NEGAR DE LOS SANTOS Primary Care Physician [phone] ANKIT DE LOS SANTOS A Admitting Unavailabl e FILIBERTO, ANKIT BILLS A Attending Unavailabl e FILIBERTO, ANKIT BILLS A Attending Unavailabl e FILIBERTO, ANKIT NEGAR A Attending Unavailabl e Maris Scott MCristal Attending Unavailable EUGENE SUAZO Attending Unavailable Sunny Carolyn L Admitting Unavailable SunnyCarolyn Attending Unavailable NEGAR DE LOS SANTOS A Admitting Unavailable NEGAR DE LOS SANTOS A Attending Unavailable Sunny Carolyn L Attending Unavailable Sunny Carolyn L Attending Unavailable Sunny Carolyn L Admitting Unavailable Tita Rojas. Attending Unavailable Francisco Mckeon MD Primary Care Provider [phone] Allergies Allergy ClassificationReported Allergen(s)Allergy TypeDate of OnsetReaction(s) Facility (20 sources)Latex; Translations: [latex]Drug mqgcara00-09-7333WrzuLfpahsAk[facility] (4 sources)Tetracyclines; Translations: [Tetracyclines]Propensity to adverse halfcebpl13-98-8418QlouesSowwaspaqJoint [facility] (2 sources)Amoxicillin / ClavulanateDrug Oopeqzh27-84-3081JfkGal[facility] Rep[facility] Medications Current Medications MedicationDrug Class(es)DatesSig (Normalized)Sig (Original)acetaminophen 500 mg oral tablet (3 sources)Start: 51-33-9006pymb 500 mg by mouth every four hoursAcetaminophen Active 500 MG PO Q4H 0 March 04, 2021 1:00amamiodarone hydrochloride 200 mg oral tablet (7 sources)AntiarrhythmicStart: 02-23-2021 End: 87-71-0921rpko 400 mg by mouth twice dailyAmiodarone Active 400 MG PO Twice daily 120 March 04, 2021 1:00amtake 2 tablets by mouth twice daily Amiodarone HCl - 200 MG Oral Tablet TAKE 2 TABLET Twice daily Quantity: 112 Refills: 0 Ordered: 31-Mar-2021 Jason Alex DO Activeapixaban 5 mg oral tablet (7 sources)Factor Xa InhibitorStart: 02-23-2021 End: 33-74-9895mhsx 1 tablet by mouth twice dailyApixaban (Eliquis) 5 mg Tablet Active 5 MG PO Twice daily 60 March 04, 2021 1:00amaspirin 81 mg chewable tablet (20 sources)Platelet Aggregation Inhibitor, Nonsteroidal Anti-inflammatory Drug Start: 02-23-2021 End: 72-30-3071vtxm 1 tablet by mouth once dailyAspirin (Children's Aspirin) 81 mg Tablet,Chewable Active 81 MG PO Daily 30 March 04, 2021 1:00amStart: 02-10-2021 End: 21-85-6541zpuj 81 mg by mouth once dailyAspirin Discontinued 81 MG PO Daily February 10, 2021 1:00am February 23, 2021 3:38pmStart: 26-46-1446atyv 1 tablet by mouth once dailyaspirin 81 mg Oral EC Tab 81 mg = 1 tab(s), Oral, Daily, Refills(s) 0, Prophylaxis Start Date: 07/22/19 Status: Ordered Repeat number: 1atorvastatin 80 mg oral tablet (20 sources)HMG-CoA Reductase InhibitorStart: 08-34-1918qwiwcsexslbv (Lipitor) 80 MG tablet 12/08/2022 ActiveStart: 02-23-2021 End: 25-55-8817emej 1 tablet by mouth once dailyatorvastatin 80 mg Tab 80 mg = 1 tab(s), Oral, Daily, # 90 tab(s), Refills(s) 3, [id number] 154.5, cm, 09/11/22 10:05:00 EDT, Height/Length Dosing, 63, kg, 09/11/22 10:05:00 EDT, Weight Dosing Start Date: 09/11/22 Status: Orderedchlorhexidine gluconate 1.2 mg/ml mouthwash (6 sources)Start: 02-23-2021 End: 52-71-5696Rcogmmjnhdewd Gluconate Active 15 ML MUCOUS MEM Three times daily 500 March 04, 2021 1:00amcholestyramine resin 4000 mg powder for oral suspension (8 sources)Bile Acid SequestrantStart: 41-94-1042Efchvlpr 4 g/9 g oral powder = 1 packet(s), Oral, Daily, # 60 packet(s), Refills(s) 6, [id number] 154, cm, 07/01/24 8:31:00 EDT, Height/Length Dosing, 63.7, kg, 07/01/24 8:31:00 EDT, Weight Dosing Start Date: 08/13/24 Status: Ordered Quantity: 60.0 Unit: packet(s) Repeat number: 7Start: 52-99-5842syljkvcxlcfzqp Refills(s) 0 Start Date: 01/25/24 Status: OrderedStart: 04-82-4657Wgagplvx 4 g/9 g oral powder = 1 packet(s), Oral, BID, # 60 EA, Refills(s) 0, [id number], cm, 01/24/24 8:54:00 EST, Height/Length Dosing, 66, kg, 01/24/24 8:54:00 EST, Weight Dosing Start Date: 01/24/24 Status: Ordereddapagliflozin 10 mg oral tablet (7 sources)Sodium-Glucose Cotransporter 2 InhibitorStart: 62-95-8392zneh 1 tablet by mouth once dailydapagliflozin 10 mg oral tablet 10 mg = 1 tab(s), Oral, Daily, # 90 tab(s), Refills(s) 1, [id number] 154, cm, 01/01/24 9:31:00 EDT, Height/Length Dosing, 66.8, kg, 01/01/24 9:31:00EDT, Weight Dosing Start Date: 01/01/24 Status: OrderedStart: 60-68-0275ybjc 1 tablet by mouth once dailydapagliflozin 10 mg oral tablet 10 mg = 1 tab(s), Oral, Daily, # 30 tab(s), Refills(s) 6, Pharmacy:[facility]/pharmacy #[id number], 154, cm, 07/27/23 10:05:00 EDT, Height/Length Dosing, 63.3, kg, 07/27/23 10:05:00 EDT, Weight Dosing Start Date: 07/27/23 Status: Ordereddocusate sodium 100 mg oral capsule (16 sources)Start: 57-46-9934fzyu 1 capsule by mouth twice daily as needed for constipationdocusate sodium (Colace) 100 MG capsule TAKE 1 CAPSULE BY MOUTH TWICE A DAY NEEDED FOR CONSTIPATION 09/13/2022 ActiveStart: 02-23-2021 End: 97-88-5630fkxh 1 capsule by mouth once daily at bedtimeDocusate Sodium (Dok) 100 mg Capsule Discontinued 100 MG PO Daily at bedtime 0 February 23, 2021 1:00am March 04, 2021 1:39pmtake 1 tablet by mouth twice dailydocusate sodium (Colace) 100 mg tablet Take 1 tablet (100 mg) by mouth 2 times a day. 0 Activeestradiol 0.1 mg/ml vaginal cream (2 sources)EstrogenStart: 43-34-2032Vkozqwk 0.1 mg/g Cream See Instructions, 42.5 gm, Refill(s) 2, Apply pea sized amount to urethra/vagina 3x a week for 1 month, then 2x a week afterwards, [facility]/pharmacy #[id number], 154, cm, 01/25/24 13:53:00 EST, Height/Length Dosing, 66.4, kg, 01/25/24 13:53:00 EST, Weight Dosing Start Date: 03/17/24 Status: Orderedezetimibe 10 mg oral tablet (11 sources)Dietary Cholesterol Absorption InhibitorStart: 06-20-2024 End: 28-24-9189bles 1 tablet by mouth once dailyZetia 10 mg Tab 10 mg = 1 tab(s), Oral, Daily, X 90 day(s), # 90 tab(s), Refills(s) 3, Pharmacy: [facility] /pharmacy #[id number], 154, cm, 01/25/24 13:53:00 EST, Height/Length Dosing, 66.4, kg, 01/25/24 13:53:00 EST, Weight Dosing Start Date: 06/20/24 Stop Date: 06/15/25 Status: Ordered Quantity: 90.0 Unit: tab(s)Repeat number: 4Start: 37-47-2596dfhl 1 tablet by mouth once dailyZetia 10 mg Tab 10 mg = 1 tab(s), Oral, Daily, # 90 tab(s), Refills(s) 1, Pharmacy: [facility]/pharmacy #[id number], 154, cm, 09/10/23 11:04:00 EDT, Height/Length Dosing, 64, kg, 09/10/23 11:04:00 EDT, Weight Dosing Start Date: 12/05/23 Status: OrderedStart: 22-00-3981mhhz 1 tablet by mouth once daily Zetia 10 mg Tab 10 mg = 1 tab(s), Oral, Daily, # 30 tab(s), Refills(s) 6, Pharmacy: [facility]/pharmacy #[id number], 154, cm, 07/27/23 10:05:00 EDT, Height/Length Dosing, 63.3, kg, 07/27/23 10:05:00 EDT, Weight Dosing Start Date: 07/27/23 Status: Orderedfamotidine 20 mg oral tablet (6 sources)Histamine-2 Receptor AntagonistStart: 02-23-2021 End: 76-10-3637gory 20 mg by mouth twice dailyFamotidine Active 20 MG PO Twice daily 60 30 March 04, 2021 1:00amfluconazole 150 mg oral tablet (2 sources)Azole AntifungalStart: 46-89-8328xnga 1 tablet by mouth onceDiflucan 150 mg Tab 150 mg = 1 tab(s), Oral, Once, # 1 tab(s), Refills(s) 0, Pharmacy: [facility]/pharmacy#[id number], 154.4, cm, 07/16/23 8:58:00 EDT, Height/Length Dosing, 62.8, kg, 07/16/23 8:58:00 EDT, Weight Dosing Start Date: 07/26/23 Status: Ordered fluticasone propionate 0.05 mg/actuat metered dose nasal spray (19 sources)CorticosteroidStart: 03-88-9212qbyimvgktqj Nasal 0.05 mg/inh Price See Instructions, 48 mL, Refill(s) 1, USE 2 SPRAYS IN EACH NOSTRIL ONCE A DAY, [id number], 154, cm, 09/10/23 11:04:00 EDT, Height/Length Dosing, 64, kg, 09/10/23 11:04:00 EDT, Weight Dosing Start Date: 09/17/23 Status: OrderedStart: 21-13-3493Dpykhlg 0.05 mg/inh Henderson 2 spray(s), Nasal, Daily, 16 gram, Refill(s) 0, each nostril, [facility]/pharmacy #[id number], 154, cm, 09/10/23 11:04:00 EDT, Height/Length Dosing, 64, kg, 09/10/23 11:04:00 EDT, WeightDosing Start Date: 09/10/23 Status: Ordered Quantity: 16.0 Unit: g Repeat number: 1Start: 09-10-2023 Flonase 0.05 mg/inh Henderson 2 spray(s), Nasal, Daily, 16 gram, Refill(s) 0, each nostril, [facility]/pharmacy #[id number], 154, cm, 09/10/23 11:04:00 EDT, Height/Length Dosing, 64, kg, 09/10/23 11:04:00 EDT, WeightDosing Start Date: 09/10/23 Status: OrderedFreestyle [place] 3+ Flash Glucose Monitoring 14 Day System (Sensor) (1 source)Start: 68-32-2148Hmwctmbje Lokesh 3+ Flash Glucose Monitoring 14 Day System (Sensor) Freestyle [place] 3+ Flash GlucoseMonitoring 14 Day System (Sensor), See Instructions, 6 EA, 1, Freestyle [place]okesh 3 Flash Glucose Monitoring (Sensor). Replace sensor every 15 days., [facility]/pharmacy #[id number], Supply, 158, cm, 09/30/24 10:38:00 EDT, Height/Length Dosing, 66.9, kg, 09/30/24 10:38:00 EDT, Weight Dosing Start Date: 10/07/24 Status: Ordered Quantity: 6.0 Unit: EA Repeat number: 2 Indications: Type 2 diabetes mellitus without complications;Freestyle [place] Flash Glucose Monitoring 14 Day System (Sensor) (11 sources)Start: 96-13-6666Xaquezwzs [place] Flash Glucose Monitoring 14 Day System (Sensor) Freestyle [place] Flash Glucose Monitoring 14 Day System (Sensor), See Instructions, 6 EA, 11, Freestyle [place] 2 Flash Glucose Uyleupjndx45 Day System (Sensor). Replace sensor every 14 days., [facility]/pharmacy #[id number], Supply, 154.4, cm, 07/03/23 10:36:00 EDT, Height/Length Dosing, 63.1, kg, 07/03/23 10:36:00 EDT, Weight Dosing Start Date: 07/03/23 Status: Orderedgabapentin 300 mg oral capsule (20 sources)Anti-epileptic AgentStart: 94-41-1555jvuo 1 capsule by mouth once daily at bedtimegabapentin 300 mg Cap 300 mg = 1 cap(s), Oral, Once a day (at bedtime), # 90 cap(s), Refills(s) 0, [id number] 154, cm, 01/25/24 13:53:00 EST, Height/Length Dosing, 66.4, kg, 01/25/24 13:53:00 EST, Weight Dosing Start Date: 05/27/24 Status: Ordered Quantity: 90.0 Unit: cap(s) Repeat number: 1 Indications: Other specified health status; Body mass index [BMI] 26.0-26.9, adult; Type2 diabetes mellitus with diabetic neuropathy, unspecified;Start: 64-45-8297szda 1 capsule by mouth once daily at bedtime gabapentin 300 mg Cap 300 mg = 1 cap(s), Oral, Once a day (at bedtime), # 90 cap(s), Refills(s) 3, Pharmacy: [facility]/pharmacy #[id number], 154, cm, 07/29/23 12:14:00 EDT, Height/Length Dosing, 63.5, kg, 07/29/23 12:14:00 EDT, Weight Dosing Start Date: 08/29/23 Status: OrderedStart: 58-01-6363jhtt 1 capsule by mouth once daily at bedtimegabapentin 300 mg Cap 300 mg = 1 cap(s), Oral, Once a day (at bedtime), # 90 cap(s), Refills(s) 3, Pharmacy: [facility]/pharmacy #[id number], 154.4, cm, 04/23/23 9:26:00 EST, Height/Length Dosing, 63.5, kg, 04/23/23 9:26:00 EST, Weight Dosing Start Date: 05/22/23 Status: OrderedStart: 45-27-1154iotn 1 capsule by mouth in the morning, then take 1 capsule by mouth in the evening, then take 1 capsule by mouth at bedtimegabapentin (Neurontin) 100 MG capsule Take 100 mg by mouth in the morning and 100 mg in the eveningand 100 mg before bedtime. 06/21/2022 ActiveStart: 02-10-2021 End: 45-47-7152msrl 300 mg by mouth once daily at bedtimeGabapentin Discontinued 300 MG PO Daily at bedtime February 10, 2021 1:00am February 23, 2021 3:38pm Start: 38-73-6459tuiy 3 capsules by mouth at bedtimegabapentin 100 mg Cap 300 mg = 3 cap(s), Oral, Bedtime, Refills(s) 0, Neuropathy Start Date: 07/22/19tatus: OrderedGABAPENTIN ORAL Take by mouth once daily. 0 ActiveGabapentin 100 MG TABS 1 daily Quantity: 0 Refills: 0 Ordered: 17-Jan-2022 DO ActiveglyBURIDE 5 mg oral tablet (10 sources)SulfonylureaStart: 02-10-2021 End: 88-24-3726olcu 5 mg by mouth once daily at breakfastGlyburide Active 5 MG PO Daily with breakfast March 04, 2021 1:00amhydroCHLOROthiazide 12.5 mg oral capsule (4 sources)Thiazide DiureticStart: 06-96-1664whpg 1 capsule by mouth once daily hydrochlorothiazide 12.5 mg Cap 12.5 mg = 1 cap(s), Oral, Daily, # 90 cap(s), Refills(s) 3, Pharmacy: [facility]/pharmacy #[id number], 154, cm, 01/25/24 13:53:00 EST, Height/Length Dosing, 66.4, kg, 01/25/24 13:53:00 EST, Weight Dosing Start Date: 02/18/24 Status: Ordered Quantity: 90.0 Unit: cap(s) Repeat number: 4Start: 56-35-1703okwv 1 capsule by mouth once dailyhydrochlorothiazide 12.5 mg Cap 12.5 mg = 1 cap(s), Oral, Daily, # 30 cap(s), Refills(s) 6, Pharmacy: [facility]/pharmacy #[id number], 154, cm, 01/25/24 13:53:00 EST, Height/Length Dosing, 66.4, kg, 01/25/24 13:53:00 EST, Weight Dosing Start Date: 01/25/24 Status: OrderedInsulin Aspart U- 100 (Novolog Flexpen U-100 Insulin) 100 unit/mL (3 mL) Insulin Pen (3 sources)Start: 52-60-6410nkgqua 5 [IU] by subcutaneous injection once before mealtimeInsulin Aspart U-100 (Novolog Flexpen U-100 Insulin) 100 unit/mL (3 mL) Insulin Pen Active 5 UNITS SUBCUT 3x/Day before meals 0 March 04, 2021 1:00am3 ml insulin aspart, human 100 unt/ml pen injector (17 sources)Insulin AnalogStart: 61-96-2777Scdpd: 83-28-8749AfgwSMS FlexPen 100 units/mL injectable solution See Instructions, check blood sugars AC and Hs and cover 150-200 2u, 201-250 4u, 251-300 6u, 301-350 8u, 351-400 10u and 1unit per 15 carbs, Refills(s) 0 Start Date: 07/17/22 Status: OrderedStart: 07-03-2022 NovoLOG FLEXPEN 100 UNIT/ML pen INJECT BEFORE MEALS AND AT BEDITME PERSLIDING SCALE*MAX OF 80 UNITSDAILY* 07/03/2022 Activeinject 1 [IU] by subcutaneous injection three times daily before mealtimeinsulin aspart (NovoLOG U-100 Insulin aspart) 100 unit/mL injection Inject 1 Units under the skin 3times a day before meals. Take as directed per insulin instructions. 0 Active3 ml insulin detemir 100 unt/ml pen injector (16 sources)Insulin AnalogStart: 35-48-4009uuzheb 15 [IU] by subcutaneous injection in the morning, then inject 17 [IU] by subcutaneous injection in the eveningLevemir FlexPen 100 UNIT/ML pen INJECT 15 UNITS SUBCUTANEOUSLY IN THE MORNING AND 17 UNITS IN THE EVENING *ROTATE INJECTION SITES* 12/01/2022 Active Start: 86-74-6103Wmmpkdk Detemir U-100 (Levemir Flextouch U-100 Insuln) 100 unit/mL (3 mL) Insulin Pen Active 25 UNITS SUBCUT Daily at bedtime 7.5 30 March 04, 2021 1:00amStart: 02-23-2021 End: 26-52-1294Tdojjdy Detemir U-100 (Levemir Flextouch U-100 Insuln) 100 unit/mL (3 mL) Insulin Pen Discontinued 20 UNITS SUBCUT Daily at bedtime 0 February 23, 2021 1:00am March 04, 2021 1:39pm3 ml insulin glargine 100 unt/ml pen injector (16 sources)Insulin AnalogStart: 33-14-2493qaxfcw 15 [IU] by subcutaneous injection in the morning, then inject 17 [IU] by subcutaneous injection in the eveningStart: 70-66-3490kuerhq 15 [IU] by subcutaneous injection in the morning, then inject 17 [IU] by subcutaneous injection in the eveningStart: 10-02-2023 Lantus Solostar Pen 100 units/mL subcutaneous solution See Instructions, 15 u subq in the morning and 17 units sub q in the evening, # 15 mL, Refills(s) 3, Pharmacy: [facility]/pharmacy #[id number], 154, cm, 09/10/23 11:04:00 EDT, Height/Length Dosing, 64, kg, 09/10/23 11:04:00 EDT, Weight Dosing Start Date: 10/02/23 Status: OrderedStart: 49-08-7771qmmeki 15 [IU] by subcutaneous injection once in the morning, then inject 17 [IU] by subcutaneous injection once in the evening Basaglar KwikPen 100 units/mL subcutaneous solution See Instructions, 15 units sub q in the morningand 17 units sub q in the evening, # 15 mL, Refills(s) 3, [id number] 154.4, cm, 04/23/23 9:26:00 EST, Height/Length Dosing, 63.5, kg, 04/23/23 9:26:00 EST, Weight Dosing Start Date: 05/28/23 Status: OrderedStart: 02-10-2021 End: 40-50-6461Tbxmonf Glargine (Lantus Solostar U-100 Insulin) 100 unit/mL (3 mL) Insulin Pen Discontinued 20 UNIT SUBCUT Daily at bedtime February 10, 2021 1:00am February 23, 2021 3:38pmStart: 58-10-5976vrmdyi 20 [IU] by subcutaneous injection once daily at bedtimeLantus 100 units/mL Injection-Insulin 20 unit(s), SubCutaneous, Once a day (at bedtime), Refills(s)0, Blood glucose Start Date: 07/22/19 Status: Orderedlevothyroxine sodium 0.05 mg oral tablet (17 sources)l-ThyroxineStart: 90-34-1243nmcd 1 tablet by mouth once daily levothyroxine 50 mcg (0.05 mg) Tab See Instructions, TAKE 1 TABLET BY MOUTH EVERY DAY, # 90 tab(s),Refills(s) 3, Pharmacy: [id number], 154, cm, 01/25/24 13:53:00 EST, Height/Length Dosing, 66.4, kg, 01/25/24 13:53:00 EST, Weight Dosing Start Date: 05/27/24 Status: Ordered Quantity: 90.0 Unit: tab(s) Repeat number: 1Start: 29-52-7225vcsz 1 tablet by mouth once dailylevothyroxine 50 mcg (0.05 mg) Tab 50 mcg = 1 tab(s), Oral, Daily, # 90 tab(s), Refills(s) 3, [id number] 154.4, cm, 03/01/23 15:22:00 EST, Height/Length Dosing, 62.7, kg, 03/01/23 15:22:00 EST, Weight Dosing Start Date: 03/20/23 Status: OrderedStart: 82-48-1326ewax 1 tablet by mouth in the morning levothyroxine (Synthroid, Levoxyl) 50 MCG tablet Take 50 mcg by mouth in the morning. 09/24/2022 Activetake 1 tablet by mouth once daily before mealtime levothyroxine (Synthroid, Levoxyl) 25 mcg tablet Take 1 tablet (25 mcg) by mouth once daily in the morning. Take before meals. 0 Activelosartan potassium 50 mg oral tablet (20 sources)Angiotensin 2 Receptor BlockerStart: 74-27-2563uqsa 1 tablet by mouth twice dailylosartan 50 mg Tab 50 mg = 1 tab(s), Oral, BID, # 180 tab(s), Refills(s) 0, Pharmacy: [facility]/pharmacy #[id number], 154, cm, 09/08/24 10:33:00 EDT, Height/Length Dosing, 67.8, kg, 09/08/24 10:33:00 EDT, WeightDosing Start Date: 09/22/24 Status: Ordered Quantity: 180.0 Unit: tab(s) Repeat number: 1Start: 92-27-6558uqyt 1 tablet by mouth twice dailylosartan 50 mg Tab 50 mg = 1 tab(s), Oral, BID, # 180 tab(s), Refills(s) 1, Pharmacy: [facility]/pharmacy #[id number], 154, cm, 01/01/24 9:31:00 EDT, Height/Length Dosing, 66.8, kg, 01/01/24 9:31:00 EDT, Weight Dosing Start Date: 01/01/24 Status: OrderedStart: 94-19-1598jflw 1 tablet by mouth twice dailylosartan 50 mg Tab 50 mg = 1 tab(s), Oral, BID, # 60 tab(s), Refills(s) 6, Pharmacy: [facility]/pharmacy #[id number], 154, cm, 07/29/23 12:14:00 EDT, Height/Length Dosing, 63.5, kg, 07/29/23 12:14:00 EDT, Weight Dosing Start Date: 08/29/23 Status: OrderedStart: 58-15-9071awaj 1 tablet by mouth twice daily losartan 50 mg Tab 50 mg = 1 tab(s), Oral, BID, # 60 tab(s), Refills(s) 6, [id number] 154, cm, 07/27/23 10:05:00 EDT, Height/Length Dosing, 63.3, kg, 07/27/23 10:05:00 EDT, Weight Dosing Start Date: 07/27/23 Status: OrderedStart: 98-55-1523dapc 1 tablet by mouth once dailylosartan 100 mg Tab See Instructions, TAKE 1 TABLET BY MOUTH EVERY DAY, # 90 tab(s), Refills(s) 0, [id number] 154.4, cm, 07/03/23 10:36:00 EDT, Height/Length Dosing, 63.1, kg, 07/03/23 10:36:00 EDT, Weight Dosing Start Date: 07/03/23 Status: OrderedStart: 01-23-2023 End: 97-27-8718effv 2 tablets by mouth once dailylosartan (Cozaar) 25 mg tablet Indications: Arteriosclerotic heart disease (ASHD) , Essential hypertension, benign Take 2 tablets (50 mg) by mouth once daily. 180 tablet 3 01/23/2023 01/23/2024 ActiveStart: 01-17-2022 End: 91-13-4043xmrx 1 tablet by mouth once dailylosartan (Cozaar) 25 mg tablet Take 1 tablet (25 mg) by mouth once daily. 0 01/17/2022 01/23/2023 Discontinued (Reorder)Start: 75-63-8272xksq 0.5 tablet by mouth once dailyLosartan Potassium 25 MG Oral Tablet TAKE 0.5 TABLET Daily Quantity: 45 Refills: 3 Ordered: 19-Apr-2021 Jason Alex DO Start : 19-Apr-2021 Active restartStart: 17-50-2939qnukoghn 25 mg Tab 12.5 mg, Oral, Daily, Refills(s) 0, High blood pressure Start Date: 07/22/19 Status: Orderedmagnesium oxide 400 mg oral tablet (20 sources)Start: 69-83-6836nnui 1 tablet by mouth once dailymagnesium oxide 400 mg Tab See Instructions, TAKE 1 TABLET BY MOUTH EVERY DAY, # 90 tab(s), Refills(s) 3, Pharmacy: [facility] [id number], 154, cm, 09/10/23 11:04:00 EDT, Height/Length Dosing, 64, kg, 09/10/23 11:04:00 EDT, Weight Dosing Start Date: 12/04/23 Status: Ordered Quantity: 90.0 Unit: tab(s) Repeat number: 1Start: 71-86-1458toxb 1 tablet by mouth once dailymagnesium oxide 400 mg Tab 400 mg = 1 tab(s), Oral, Daily, # 90 tab(s), Refills(s) 4, [id number] 154, cm, 09/10/23 11:04:00 EDT, Height/Length Dosing, 64, kg, 09/10/23 11:04:00 EDT, Weight Dosing Start Date: 09/25/23 Status: OrderedStart: 22-00-6411cawj 400 mg by mouth twice dailyMagnesium Oxide Active 400 MG PO Twice daily 60 March 04, 2021 1:00ammelatonin 5 mg oral tablet (9 sources)Start: 51-63-2709wtmr 5 mg by mouth once daily at bedtimeMelatonin Active 5 MG PO Daily at bedtime 30 March 04, 2021 1:00amStart: 02-23-2021 End: 50-84-0790zqtt 10 mg by mouth once daily at bedtimeMelatonin Discontinued 10 MG PO Daily at bedtime 0 February 23, 2021 1:00am March 04, 2021 1:39pm take 1 capsule by mouth at bedtimeMelatonin 10 MG Oral Capsule TAKE 1 CAPSULE Bedtime Quantity: 0 Refills: 0 Ordered: 19-Apr-2021 DO ActivemetFORMIN hydrochloride 500 mg oral tablet (20 sources)BiguanideStart: 93-51-3873eoxx 1 tablet by mouth once dailymetformin 500 mg ER Tab 500 mg = 1 tab(s), Oral, Daily, # 90 tab(s), Refills(s) 3, Pharmacy: [facility]/pharmacy #[id number], 154, cm, 01/25/24 13:53:00 EST, Height/Length Dosing, 66.4, kg, 01/25/24 13:53:00 EST,Weight Dosing Start Date: 05/27/24 Status: Ordered Quantity: 90.0 Unit: tab(s) Repeat number: 4Start: 06-29-2023 take 1 tablet by mouth once dailymetformin 500 mg ER Tab 500 mg = 1 tab(s), Oral, Daily, # 90 tab(s), Refills(s) 3, Pharmacy: [facility]/pharmacy #[id number], 154.4, cm, 04/23/23 9:26:00 EST, Height/Length Dosing, 63.5, kg, 04/23/23 9:26:00 EST, Weight Dosing Start Date: 06/29/23 Status: OrderedStart: 07-22-2019 End: 68-01-4211rhjx 500 mg by mouth once dailyMetformin Discontinued 500 MG PO Daily February 10, 2021 1:00am February 23, 2021 3:38pm24 hr metoprolol succinate 100 mg extended release oral tablet (20 sources)beta-Adrenergic BlockerStart: 76-81-4837oxkg 1 tablet by mouth once dailymetoprolol succinate 100 mg ER Tab 100 mg = 1 tab(s), Oral, Daily, # 90 tab(s), Refills(s) 3, Pharmacy: [facility]/pharmacy #[id number], 154, cm, 07/01/24 8:31:00 EDT, Height/Length Dosing, 63.7, kg, 07/01/24 8:31:00 EDT, Weight Dosing Start Date: 07/04/24 Status: Ordered Quantity: 90.0 Unit: tab(s) Repeat number: 4Start: 72-85-0715ljkf 1 tablet by mouth once dailymetoprolol 100 mg ER Tab 100 mg = 1 tab(s), Oral, Daily, # 30 tab(s), Refills(s) 6, Pharmacy: [facility]/pharmacy #[id number], 154, cm, 07/27/23 10:05:00 EDT, Height/Length Dosing, 63.3, kg, 07/27/23 10:05:00 EDT, Weight Dosing Start Date: 07/27/23 Status: OrderedStart: 10-04-2022 take 1 tablet by mouth every twenty-four hours in the morningmetoprolol succinate XL (Toprol-XL) 50 MG 24 hr tablet Take 50 mg by mouth in the morning. 10/04/2022 ActiveStart: 74-66-1815tzja 1 tablet by mouth once dailymetoprolol 50 mg ER Tab 50 mg = 1 tab(s), Oral, Daily, # 90 tab(s), Refills(s) 3, Pharmacy: [facility]/pharmacy #[id number], 154.5, cm, 09/11/22 10:05:00 EDT, Height/Length Dosing, 63, kg, 09/11/22 10:05:00 EDT, Weight Dosing Start Date: 09/11/22 Status: Ordered Start: 02-23-2021 End: 96-06-8583lmls 25 mg by mouth every six hoursMetoprolol Tartrate Active 25 MG PO Every 6 hours 120 March 04, 2021 1:00amnystatin 100 unt/mg topical ointment (6 sources)Polyene AntifungalStart: 02-23-2021 End: 61-02-7802Tlhpailg Active 1 APPLIC TOPICAL Twice daily 30 March 04, 2021 1:00ampovidone-iodine 0.1 mg/mg topical ointment (9 sources)AntisepticStart: 02-23-2021 End: 50-03-2853Rhguubyl-Iodine Active 1 APPLIC TOPICAL Daily March 04, 2021 1:00amStart: 02-23-2021 End: 80-41-6756Kvlcoslu-Iodine Discontinued 1 APPLIC TOPICAL PRN 0 February 23, 2021 1:00am March 04, 2021 1:39pmreader (1 source)Start: 80-31-9119kwryra reader, See Instructions, 1 EA, 1, free style 2 readerfree style 2 reader, [facility], Supply, 154, cm, 01/25/24 13:53:00 EST, Height/Length Dosing, 66.4, kg, 01/25/24 13:53:00 EST,Weight Dosing Start Date: 04/22/24 Status: Ordered Quantity: 1.0 Unit: EA Repeat number: 2traMADol hydrochloride 50 mg oral tablet (9 sources)Opioid AgonistStart: 02-23-2021 End: 33-43-3802ovow 50 mg by mouth every four hoursTramadol Active 50 MG PO Q4H 30 5 March 04, 2021 1:00amStart: 02-23-2021 End: 69-46-5932bpfg 100 mg by mouth every six hoursTramadol Discontinued 100 MG PO Q6H 0 February 23, 2021 1:00am March 04, 2021 1:39pm Completed/Discontinued Medications MedicationDrug Class(es)DatesSig (Normalized)Sig (Original)aluminum hydroxide 40 mg/ml / magnesium hydroxide 40 mg/ml / simethicone 4 mg/ml oral suspension (3 sources)Start: 02-23-2021 End: 91-76-8633spxl 1 mL by mouth every four hoursAlum-Mag Hydroxide-Simeth (Mag-Al Plus) 200-200-20 mg/5 mL Suspension Discontinued 30 ML PO Q4H 0 February 23, 2021 1:00am March 04, 2021 1:39pmbumetanide 1 mg oral tablet (6 sources)Loop DiureticStart: 82-27-4888ckcu 1 tablet by mouth every other day Bumetanide 1 MG Oral Tablet TAKE 1 TABLET EVERY OTHER DAY Quantity: 45 Refills: 3 Ordered: 19-Apr-2021 Jason lAex DO Start : 19-Apr-2021 ActiveStart: 23-82-1880mqad 1 mg by mouth once dailyBumetanide Active 1 MG PO DAILY@0800 30 30 March 04, 2021 1:00amhydroCHLOROthiazide 12.5 mg / losartan potassium 100 mg oral tablet (3 sources)Thiazide Diuretic, Angiotensin 2 Receptor BlockerStart: 02-10-2021 End: 92-08-6458ntiu 1 tablet by mouth once dailyLosartan-Hydrochlorothiazide Discontinued 1 TAB PO Daily February 10, 2021 1:00am February 23, 2021 3:38pm lactulose 667 mg/ml oral solution (3 sources)Osmotic LaxativeStart: 02-23-2021 End: 34-07-8970zitz 10 g by mouth once dailyLactulose Discontinued 10 GM PO Daily 0 February 23, 2021 1:00am March 04, 2021 1:39pmMagnesium Hydroxide (3 sources)Start: 02-23-2021 End: 08-53-0583qyxa 1 mL by mouth once dailyMagnesium Hydroxide (Milk Of Magnesia) 400 mg/5 mL Suspension Discontinued 30 ML PO Daily 0 February 23, 2021 1:00am March 04, 2021 1:39pmmeclizine hydrochloride 25 mg oral tablet (3 sources)AntiemeticStart: 02-10-2021 End: 56-64-8454ukaw 25 mg by mouth once dailyMeclizine Discontinued 25 MG PO Daily February 10, 2021 1:00am March 04, 2021 1:39pmnitroglycerin 0.4 mg sublingual tablet (3 sources)Nitrate VasodilatorStart: 02-23-2021 End: 44-16-9728Cthqtzgngwbgm Discontinued 0.4 MG SUBLINGUAL Q5M 0 February 23, 2021 1:00am March 04, 2021 1:39pmomeprazole 40 mg delayed release oral capsule (1 source)Proton Pump InhibitorStart: 36-64-5733hcjbibzghc 40 mg Cap-DR 90 EA, 0 Refill(s), TAKE 1 CAPSULE BY MOUTH EVERY DAY, Refills(s) 0 Start Date: 09/30/24 Status: Ordered Repeat number: 1ondansetron 4 mg oral tablet (3 sources)Serotonin-3 Receptor Antagonisttake 1 tablet by mouth every four to six hours as neededOndansetron HCl - 4 MG Oral Tablet 1 tablet every 4-6 hours as needed Quantity: 0 Refills: 0 Ordered: 19-Apr-2021 DO Activepotassium chloride 20 meq extended release oral tablet (6 sources)Start: 59-32-3746egmc 1 tablet by mouth every other dayPotassium Chloride Henny ER 20 MEQ Oral Tablet Extended Release TAKE 1 TABLET EVERY OTHER DAY Quantity: 45 Refills: 3 Ordered: 19-Apr-2021 Jason Alex DO Start : 19-Apr-2021 Active dose decreasedStart: 53-36-8671Savyyrsqn Chloride (Klor-Con M20) 20 mEq Tablet,Er Particles/Crystals Active 40 MEQ PO Twice daily 120 March 04, 2021 1:00am Problems Active Problems Problem ClassificationProblemDateDocumented DateEpisodic/ChronicAbdominal pain (11 sources)Vulvovaginal discomfort; Translations: [Pelvic and perineal pain] Onset: 900444-30-1889AskpagpdMtlmc myocardial infarction (3 sources)Myocardial infarction; Translations: [Non-ST elevation (NSTEMI) myocardial infarction]58-74-3666WtopsyjPvvwzumr reactions (3 sources)Latex allergy status; Translations: [Allergy to latex]02-12-2021 EpisodicCalculus of urinary tract (9 sources)Ureteric stone; Translations: [Calculus of ureter]Onset: 01-17-2024 EpisodicCardiac dysrhythmias (13 sources)Atrial fibrillation; Translations: [Atrial fibrillation]Onset: 428106-96-6526BumnvtcHvqzydi dysrhythmias (4 sources)Palpitations; Translations: [PALPITATIONS]Onset: 96-96-9645Jjqkbvad Cataract (5 sources)After-cataract of bilateral eyes; Translations: [Other secondary cataract, bilateral]Onset: 994065-53-9567NyyafyoKakwpgyuruk and hemorrhagic disorders (3 sources)Thrombocytopenic disorder; Translations: [Thrombocytopenia, unspecified]23-56-8582PiapfzbZumssfkfjaql of device; implant or graft (1 source)Arteriosclerosis of coronary artery bypass graft; Translations: [Atherosclerosis of coronary arterybypass graft(s) without angina pectoris] Onset: 12-87-0412QvxspeyMaguzrcqjkjrl of surgical procedures or medical care (3 sources)Pulmonary insufficiency following surgery; Translations: [Other postprocedural complications and disorders of respiratory system, not elsewhere classified]43-12-1359EvkhvgrqZwywfirndf associated with dizziness or vertigo (17 sources)Benign paroxysmal vertigo, unspecified ear; Translations: [Benign paroxysmal positional vertigo]Onset: 73-96-5677HqhrrctlFetauptzdb heart failure; nonhypertensive (13 sources)Congestive heart cejudda17-98-0980OknbqalJslmhser atherosclerosis and other heart disease (20 sources)Coronary arteriosclerosis; Translations: [Coronary atherosclerosis of unspecified type of vessel, cowlitz or graft]Onset: 837908-53-4122 ChronicDeficiency and other anemia (3 sources)Anemia; Translations: [Anemia, unspecified]64-83-7682DbbbkepoCmsiynlc mellitus with complications (20 sources)Type 2 diabetes mellitus with hyperglycemia; Translations: [Type 1 diabetes mellitus with unspecified complications]Onset: 35-47-1842Xrvjbzn Diabetes mellitus without complication (20 sources)Diabetes mellitus; Translations: [Diabetes mellitus without mention of complication, type II or unspecified type, not stated as uncontrolled]Onset: 313122-74-0062VkuiqkvMaxtnwh on above:Linked per outpatient CDI policy. Disorders of lipid metabolism (20 sources)Hyperlipidemia; Translations: [Other and unspecified hyperlipidemia] Onset: 765743-03-5489TjqvfxkNhvdjihaoe disorders (13 sources)Gastroesophageal reflux disease without iaibpfmunrt02-00-1043Cwtpgyu Essential hypertension (20 sources)Benign essential hypertension; Translations: [Benign essential hypertension]Onset: 957650-58-5528UsvetmuYdrsp and electrolyte disorders (1 source)Hypokalemia; Translations: [HYPOKALEMIA]Onset: 82-23-8392Bqympybq Genitourinary symptoms and ill-defined conditions (11 sources)Microscopic hematuria; Translations: [Other microscopic hematuria] Onset: 43-41-9659RqgyzgfvGkloyotx; including migraine (3 sources)Headache; including migraine; Translations: [HEADACHE UNSPECIFIED] Onset: 10-68-6229Dtkbwoincreg with complications and secondary hypertension (13 sources)Hypertensive heart disease with congestive heart poxbjxd54-92-3456 ChronicComment on above:Linked per outpaitent CDI policy.Inflammatory diseases of female pelvic organs (3 sources)Vaginitis; Translations: [Acute vaginitis]90-08-6681Rlttgzyc Menopausal disorders (3 sources)Atrophic vaginitis; Translations: [Postmenopausal atrophic vaginitis] Onset: 92-96-3888XuosnplXferpqwoeyymdg (1 source)Unspecified osteoarthritis, unspecified site; Translations: [UNSPECIFIED OSTEOARTHRITIS UNS SITE]Onset: 01-34-7094RmhggtyJvhzx aftercare (3 sources)membership coordinator (current) use of insulin; Translations: [PRISON CURRENT USE OF INSULIN]Onset: 28-07-3218ZpzoovytSwkre aftercare (1 source)membership coordinator (current) use of aspirin; Translations: [EXHAUSTER CURRENT USE OF ASPIRIN]Onset: 52-81-9724TxtehzqxZuils aftercare (1 source)care home (current) use of oral hypoglycemic drugs; Translations: [EXHAUSTER USE ORAL HYPOGLYCEMIC DX]Onset: 92-51-6582MmghlyqwTelxr and unspecified benign neoplasm (3 sources)Neoplasm of meninges; Translations: [Benign neoplasm of meninges, unspecified]89-73-5656KqhjxxnKhrsm and unspecified benign neoplasm (13 sources)Benign neoplasm of cerebral opoirubj50-14-1048EdzcpgxJzyin diseases of bladder and urethra (1 source)Disorder of bladder; Translations: [Bladder disorder, unspecified] Onset: 36-59-9265UlexiwwWpfan diseases of bladder and urethra (1 source)Lesion of -26-7196MqifdphDmngy diseases of bladder and urethra (3 sources)Urethral caruncle; Translations: [Urethral caruncle]Onset: 03-17-2024 EpisodicOther diseases of kidney and ureters (1 source)Acquired renal cyst without neoplastic change; Translations: [Cyst of kidney, acquired]Onset: 79-47-6007HfzbdcmoQberq diseases of kidney and ureters (1 source)Cyst of kekdgr22-27-6013IsbjryvyMffzp gastrointestinal disorders (3 sources)Constipation; Translations: [Constipation, unspecified]02-12-2021 EpisodicOther gastrointestinal disorders (7 sources)Urgent desire for stool; Translations: [Fecal urgency]Onset: 21-65-8305IkamrshvRpchw gastrointestinal disorders (7 sources)Altered bowel function; Translations: [Change in bowel habit]Onset: 83-06-0928UdelmjtcSxgpm gastrointestinal disorders (6 sources)H/O: rvmlhda32-61-5650BiwnkgcvDpsew infections; including parasitic (1 source)H/O: infectious disease; Translations: [Personal history of other infectious and parasitic diseases]Onset: 04-91-6230GbtrsmfgJdelm injuries and conditions due to external causes (1 source)Foreign body in right cornea; Translations: [Foreign body in cornea, right eye, initial encounter]74-53-5813GoqpnmheVrwhl liver diseases (13 sources)Elevated total whdyodxkr19-08-2136XoskdihwXnqzx lower respiratory disease (3 sources)Slow respiration; Translations: [Other abnormalities of breathing] 92-45-6814NvcrfpdrHyyor nervous system disorders (3 sources)Postoperative pain ; Translations: [Other acute postprocedural pain] 63-74-4878QwzzkqgqYpmsy nutritional; endocrine; and metabolic disorders (1 source)Hypomagnesemia; Translations: [HYPOMAGNESEMIA]Onset: 47-30-5651Pvlmpdw Other nutritional; endocrine; and metabolic disorders (2 sources)Body mass index 25-29 - gxgefxrjhk29-52-1239ZydkoqjkQdsjy nutritional; endocrine; and metabolic disorders (2 sources)Overweight in adulthood with body mass index of 25 or more but less than 6141-82-0903UghqibsqMydvi screening for suspected conditions (not mental disorders or infectious disease) (1 source)Encounter for screening mammogram for malignant neoplasm of breast; Translations: [Encounter for screening mammogram for malignant neoplasm of breast]Onset: 34-45-7195HcrkhnzhByptq upper respiratory infections (10 sources)Acute upper respiratory hhbmzjpia21-24-9857GrrerwrwLrjltw media and related conditions (11 sources)Dysfunction of eustachian urlh71-11-5092JnwdldnvHdyzzplybr and visceral atherosclerosis (13 sources)Aortoiliac ddowacyyyfhjbck94-27-8562VyurvlzPhwimlx on above:Added per Dr. Mckeon query response, per outpatient CDI policy.Residual codes; unclassified (5 sources)Body mass index 20-24 - normal; Translations: [Body Mass Index between 19-24, adult]EpisodicResidual codes; unclassified (1 source)Acquired absence of organ; Translations: [Acquired absence of other specified parts of digestive tract]Onset: 95-63-0904FkcgtgwrVjykrrfl codes; unclassified (1 source)Family history of malignant neoplasm of digestive organ; Translations: [Family history of malignantneoplasm of digestive organs]Onset: 01-23-2024 EpisodicThyroid disorders (4 sources)Hypothyroidism, unspecified; Translations: [HYPOTHYROIDISM UNSPECIFIED]Onset: 88-76-8488CkiwntjYfclkslaiyor (13 sources)Injury of left ansj16-37-2850Sihmmhhtxfhw (13 sources)Long-term current use of ufczepf91-29-8598Ncqgojx on above:Added per outpatient CDI policy.Unclassified (13 sources)Patient encounter uwzfwc85-37-1816Ndeoocwsqkti (2 sources)Hxh-dlxaff40-04zelhty45-98-3665Rpqyksu tract infections (4 sources)Urinary tract infectious disease; Translations: [Urinary tract infection, site not specified]Onset: 582185-09-2323MuojegzvTlvui infection (11 sources)Disease caused by 0873-bEsP74-31-2024 Past or Other Problems Problem ClassificationProblemDateDocumented DateEpisodic/ChronicBlindness and vision defects (5 sources)Diplopia; Translations: [Diplopia]Onset: 138283-76-4154Nvuwwita Coronary atherosclerosis and other heart disease (4 sources)Presence of aortocoronary bypass graft; Translations: [Presence of aortocoronary bypass graft]Onset: 07-06-6545CtzixbxpIhyti aftercare (1 source)Other cheese wrapper (current) drug therapy; Translations: [OTH PRISON CURRENT DRUG THERAPY]Onset: 93-29-1577VtzzlgphTpqsz eye disorders (5 sources)Dry eyes; Translations: [Dry eye syndrome of bilateral lacrimal glands]Onset: 959924-43-3404ZurvsosyVomnvbsf codes; unclassified (2 sources)Localized edema; Translations: [Localized edema]Onset: 07-21-2024 EpisodicSkin and subcutaneous tissue infections (1 source)Cellulitis of face; Translations: [CELLULITIS OF FACE]Onset: 64-01-6916CawskjsjHkhjqzbexcpb (5 sources)Never smoked tobacco; Translations: [Never a smoker]Unclassified (1 source)Onset: Results Test NameValueInterpretationReference RangeFacilityReminderuniversity hospital 01-21-2025 RemindersReminders From: Carolyn Benoit To: [facility] - Clinical; Sent: 01/13/2025 08:54:09 EDT Show up: 01/13/2025 08:53:00 EDT Subject: Ambulatory Reminder Due Date/Time: 01/14/2025 08:52:00 EDT Her HGBA1C is 7.9 we need to adjust her Lantus dose. Can you verify what doses she is currently taking? I would like her to increase her morning and evening dose by 2 units. We will recheck HGBA1C in3 months. Results: Date Result Name Ind Value Ref Range 01/12/2025 10:16 Hgb A1C % (H) 7.9 % ( - <=5.9) Attempted to call patient. Patient answered and phone went . Will attempt again. From: Britney Kelley LPN (B - Clinical) To: Carolyn Benoit; Sent: 01/21/2025 11:30:37 EST Show up: 01/21/2025 11:30:00 EST Subject: A1C and insulin dosage Patient notified and verbalized understanding. She has been currently taking 15 units every a.m. and 17 units every HS. I advised her to increase per your instruction to 17 units every a.m. and 19 units every HS. She has her f/u visit scheduled for 3 months.[facility] HospitalF[facility] Office/Clinic Noteon 95-43-2032Ddmcbj Medicine Office/Clinic NoteFami Medicine Office/Clinic Note HPI Staff Please speak with patient about scheduling an AWV. Has refused in the past. Pt is presenting for 3 month follow up Patient is here for follow up on Diabetes. How often are you checking your blood sugars? 4 times per day What are your average readings? 150 Paresthesias, Ulcerations or sores? no Lisinopril, aspirin, statin therapy? Yes Foot Exam: Eye Exam: 08/12/24 Hgb A1C %: 7.4 % High (09/30/24 11:01:00) Hgb A1c POC: 6.3 % (01/01/24 10:01:00) Wants to discuss left leg swelling, has been gradually swelling for about a year. 3 years ago had triple bypass and the incision site on that leg still aches. [facility] did scan of her leg to assess blood flow about a year ago, said it all looked okay History of Present Illness pt presents today for diabetes follow up. c/o worsening left uper leg swelling Review of Systems PHQ Score Initial Depression Screen Score: 0 SCORE General: alert, no acute distress ENMT: oral mucosa moist, no pharyngeal erythema or exudate Cardiovascular: regular rate and rhythm, normal peripheral perfusion Respiratory: Lungs CTA, respirations non labored Extremities: no deformity, no trauma Neurological: oriented x 4, LOC appropriate for age, CN II-XII intact, motor strength equal & normal bilaterally, speech normal left upper leg swollen, non pitting Physical Exam Vitals & Measurements T: 36.3 ???C(Temporal Artery) HR: 58(Peripheral) RR: 18 BP: 112/80 SpO2: 98% HT: 65 in HT: 164 cm WT: 68.0 kg WT: 149.914 lb BMI: 25.28 Assessment/Plan 1. Type 2 diabetes mellitus with hyperlipidemia (E11.69: Type 2 diabetes mellitus with other specified complication) will check HGBA1C in office today. RTC [address] Rojas as she prefers physician. Ordered: Complex E&M Add on G2211 E&M of Est. Patient Low 20-29 Min 01112 Lab Specimen Collect 88024 2. Leg edema, left (R60.0: Localized edema) left upper leg is quite a bit bigger than right. 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 she has had a scan of that leg about a year ago that was normal and showed good blood flow. . she has lasix thatshe takes and says that doesn't help either. I encouraged her to wrap with an shekhar wrap for compression to help with the swelling. Informed her I would discuss this with Dr. Rojas as well. she just feels like no one really has an answer of why her left upper leg is swollen. Ordered: Complex E&M Add on G2211 E&M of Est. Patient Low 20-29 Min 07041 3. BMI 25.0-25.9,adult (Z68.25: Body mass index [BMI] 25.0-25.9, adult) BMI educaiton Ordered: Complex E&M Add on G2211 E&M of Est. Patient Low 20-29 Min 72997 4. Overweight (BMI 25.0-29.9) (E66.3: Overweight) see above Ordered: Complex E&M Add on G2211 E&M of Est. Patient Low 20-29 Min 24051 5. Non-smoker (Z78.9: Other specified health status) continue not smoking Ordered: Complex E&M Add on G2211 E&M of Est. Patient Low 20-29 Min 05024 Orders: fluticasone nasal, See Instructions, 48 mL, Refill(s) 1, SPRAY 2 SPRAYS INTO EACH NOSTRIL DAILY, [id number], 164, cm, 01/12/25 9:50:00 EDT, Height/Length Dosing, 68, kg, 01/12/25 9:50:00 EDT,Weight Dosing fluticasone nasal, See Instructions, 48 mL, Refill(s) 1, SPRAY 2 SPRAYS INTO EACH NOSTRIL DAILY, [facility], 164, cm, 10/08/24 11:09:00 EDT, Height/Length Dosing, 67.3, kg, 10/08/24 11:09:00 EDT, Weight Dosing HgbA1c Follow-up No qualifying data available Problem List/Past [...] disease with CHF Injury of left foot Leg edema, left Lesion of bladder Long-term insulin use Microscopic [...] 80 mg Tab, See Instructions, 1 refills fluticasone Nasal 0.05 mg/inh Price, See Instructions, 1 refills Freestyle Lokesh 3+ Flash Glucose Monitoring 14 Day System (Sensor), See Instructions, 1 refills gabapentin 300 mg Cap, 300 mg= 1 cap(s), Oral, Once a day (at bedtime) hydroch (more content not included)...[facility] HospitalComment on above:Result Comment: Electronically Signed By: Carolyn Benoit.elliot\Date and Time Signed: 01/12/25 11:07 KXQYvoJ7mxz 72-03-2791UmZ8c (Bld) [Mass fraction]7.9 %High<=5.9Paulding County HospitalComment on above:Performed By: #### [id number] #### [facility] [address] [place] [address]Ntibip Onlyon 12-62-8868Agtxpa [id number] Rafi Roper 1955 F Date Provider Department Center 10/20/2024 [id number], HISTORICAL CARD [facility] Family History Problem Relation Age of Onset Pneumonia Father Lung cancer Brother Family Status - Relation Status Age at Mother Father Brother DeceasedNormalUniversity of Big Bend Regional Medical CenterAmbulatory Visit Summaryon 55-94-3288Xkmnoqdrxp Visit SummaryAmbulatory Visit Summary RAFI ROPER :1955 Visit Date:10/08/2024 Ambulatory Visit Instructions Your Diagnosis Microscopic hematuria Vaginal atrophy Urethral caruncle Lesion of bladder Renal cyst Your Care Team Attending Physician - Maris Scott MD Primary Care Physician - NEGAR DE LOS SANTOS CNP This Is Your Medications List Contact prescribing physician if questions or concerns Misc Prescription (Freestyle Lokesh 3+ Flash Glucose Monitoring 14 Day System (Sensor)) Misc Prescription (Misc DME Prescription) Misc Prescription (Pen Needle 31G x 5mm) Misc Prescription (reader) aspirin (aspirin 81 mg Oral EC Tab) atorvastatin (atorvastatin 80 mg Tab) cholestyramine (Questran 4 g/9 g oral powder) ezetimibe (Zetia 10 mg Tab) fluticasone nasal (Flonase 0.05 mg/inh Henderson) gabapentin (gabapentin 300 mg Cap) hydrochlorothiazide (hydrochlorothiazide [...] Following Appointments Follow Up with Tyler SHANNON, SHAHBAZ White, [facility] When: Where: Medications What How Much [...] Unchanged fluticasone nasal (Flonase 0.05 mg/ inh Henderson) 2 Sprays Nasal Inhalation Every day each [...] Flash Glucose Monitoring (Sensor). Replace sensor every 15days. Contact prescribing physician if questions or concerns Unchanged Misc Prescription (Misc DME Prescription) See instructions BD ultra fine mini pen [id number] X 3/ 16 Use 6 times a day to inject insulin Dx E10.8 5 boxes or pt needs 180 a month x3 monthswith 3 refills. Contact prescribing physician if questions or concerns Unchanged Misc Prescription (Pen Needle 31G x 5mm) See instructions Pen Needle 31G x 6mm. Pt needs 5 boxes of 3 months supply. Contact prescribing physician if questions or concerns Unchang (more content not included)...[facility] HospitalUrology Office/Clinic Noteon [phone] Office/Clinic NoteUrology Office/Clinic Note Chief Complaint fu HPI Staff [...] hematuria) Chronic. Cysto years ago by Dr. Vasquez for microscopic hematuria. Negative. Neg hematuria workup [...] (N28.1: Cyst of kidney, acquired) CT[facility] 03/18/24 [facility] [place] 1.7 cm cortical cyst upper pole left kidney. -If simple, does not require surveillance. Follow-up With When Contact Information Tyler SHANNON, Maris Tony, URL, [facility] Additional Instructions: PRN Patient Education Hematuria, Adult I, Fannie Guerra, personally scribed for Dr. Scott on 10/08/2024 12:18:28. . Portions of this record may have been created with voice recognition artificial intelligence software, specifically [employer], [employer]PT and or [employer]. Substitutions may have occurred due to the [...] See Instructions, 1 refills Flonase 0.05 mg/inh Henderson, 2 spray(s), Nasal, Daily Freestyle Lokesh 3+ Flash Glucose Monitoring 14 Day System (Sensor), See Instructions, 1 refills gabapentin 300 mg Cap, 300 mg= 1 cap(s), Oral, Once a day (at bedtime) hydr (more content not included)...[facility] HospitalComment on above:Result Comment: Electronically Signed By: Maris Scott MD\.br\Date and Time Signed: 10/08/24 12:23EDT\.br\Electronically Co-Signed By: Fannie Guerra.br\Date and Time Co-Signed: 10/08/24 12:18 EDTAmbulatory Visit Summaryon 04-31-9547Bzwcutzhpa Visit SummaryAmbulatory Visit Summary RAFI ROPER :1955 Visit Date:09/30/2024 [...] mg Tab) fluticasone nasal (Flonase 0.05 mg/inh Henderson) gabapentin (gabapentin 300 mg Cap) hydrochlorothiazide (hydrochlorothiazide [...] Follow-Up Appointments Sunday 10:45 AM EDT With: Maris Scott MD Where: [facility] [address] [address]- You Need to Schedule the Following Appointments Follow Up with NEGAR DE LOS SANTOS CNP, FAM When: Within 6 months Comments: Diabetes Where: [address] [place] [address] Business (1) Medications What How Much [...] Unchanged fluticasone nasal (Flonase 0.05 mg/ inh Henderson) 2 Sprays Nasal Inhalation Every day each [...] Flash Glucose Monitoring (Sensor). Replace sensor every 15days. Unchanged Misc Prescription (Misc DME Prescription) See instructions BD ultra fine mini pen idmuvsa98Z X 3/ 16 Use 6 times a day to inject insulin Dx E10.8 5 boxes or pt needs 180 a month x3 monthswith 3 refills. Unchanged Misc Prescription (Pen Needle [...] failure) Colon cancer scree (more content not included)...NormalPaulding County HospitalCBC w/ Auto Diffon 75-70-2312Fkvgwwyt Absolute0.0 E9/LNormal0.0-0.2FSalem Regional Medical CenterComment on above:Performed By: #### [id number] #### [facility] [address], [place] [address]Esvinukdu/100 WBC (Bld)0.7 %Normal0.0-2.0Paulding County HospitalComment on above:Performed By: #### [id number] #### [facility] [address], [place] [address]Wcx Absolute0.4 E9/LNormal0.0-0.5FSalem Regional Medical Center Comment on above:Performed By: #### [id number] #### [facility] [address], [place] [address]Bwboxygwbtx/100 WBC (Bld)7.6 %Normal0.0-8.0Paulding County HospitalComment on above:Performed By: #### [id number] #### [facility] [address], [place] [address]Eypssmmlfgm distribution width (RBC) [Ratio]13.3 %Normal 10.9-14.2FSalem Regional Medical CenterComment on above:Performed By: #### [id number] #### [facility] [address], [place] [address]Wrjhmljbyg (Bld) [Volume fraction]40.4 %Ggavdg10.0-46.0Paulding County HospitalComment on above:Performed By: #### [id number] #### [facility] [address], [place] [address]Izwcyrdflg (Bld) [Mass/Vol]13.9 g/zVVfkwrx34.0-16.0Paul[facility] County HospitalComment on above:Performed By: #### [id number] #### [facility] [address] [place] [address]Dnruz Absolute1.1 E9/LNormal1.0-4.0[facility] Comment on above:Performed By: #### [id number] #### [facility] [address] [place] [address]Lfbepddjrxj/100 WBC (Bld)22.5 %Opyfbv55.0-50.0Paul[facility] County HospitalComment on above:Performed By: #### [id number] #### [facility] [address] [place] [address]CFR (RBC) [Entitic mass]30.8 blJedkby02.0-34.0Paul[facility] County HospitalComment on above:Performed By: #### [id number] #### [facility] [address] [place] [address]TQPO (RBC) [Mass/Vol]34.5 g/rFXxnkzh77.4-36.0Paul[facility] County HospitalComment on above:Performed By: #### [id number] #### [facility] [address] [place] [address]HZN (RBC) [Entitic vol]89.2 oLFfupfe62.0-100.0Paul[facility] County HospitalComment on above:Performed By: #### [id number] #### [facility] [address] [place] [address]Gdbp Absolute0.4 E9/LNormal0.2-1.0[facility] Comment on above:Performed By: #### [id number] #### [facility] [address] [place] [address]Owliyklel/100 WBC (Bld)9.0 %Normal4.0-14.0Paul[facility] County HospitalComment on above:Performed By: #### [id number] #### [facility] [address], [place] [address]Rvtziy Absolute2.9 E9/LNormal2.0-7.5FSalem Regional Medical Center Comment on above:Performed By: #### [id number] #### [facility] [address], [place] [address]Elahnv Auto60.2 %Ibxwxi94.0-75.0[facility] Comment on above:Performed By: #### [id number] #### [facility] [address] [place] [address]Itwycywr741.0 E9/FFzmfjy413.0-500.0[facility] Comment on above:Performed By: #### [id number] #### [facility] [address] [place] [address]Kdiduvll mean volume (Bld) [Entitic vol]8.7 fLNormal6.4-10.8 [facility] County HospitalComment on above:Performed By: #### [id number] #### [facility] [address] [place] [address]UCC2.5 E12/LNormal4.3-5.9Paul[facility] County HospitalComment on above:Performed By: #### [id number] #### [facility] [address] [place] [address]RMJ9.8 E9/LNormal4.0-11.0[facility] County HospitalComment on above:Performed By: #### [id number] #### [facility] [address] [place] [address]PIMva 65-44-2153Jhegtjk [Mass/Vol]4.4 g/dLNormal3.3-5.0Paul[facility] County HospitalComment on above:Performed By: #### [id number] #### [facility] [address] [place] [address]Sphrvgo/Globulin [Mass ratio]2.4 {ratio}High1.1-2.2FSalem Regional Medical CenterComment on above:Performed By: #### [id number] #### [facility] [address], [place] [address]Kbg Phos56 Int._Unit/DMosezm13-71MiozfkPaulding County Hospital Comment on above:Performed By: #### [id number] #### [facility] [address], [place] [address]VXC13 Int._Unit/LNormal6-46Paul[facility] County HospitalComment on above:Performed By: #### [id number] #### [facility] [address], [place] [address]Lodjt gap [Moles/Vol]7 mmol/LNormal6-16[facility] County HospitalComment on above:Performed By: #### [id number] #### [facility] [address], [place] [address]UIQ63 Int._Unit/LNormal5-43[facility] HospitalComment on above:Performed By: #### [id number] #### [facility] [address], [place] [address]Ulne Total3.1 mg/dLHigh0.0-1.1FSalem Regional Medical Center Comment on above:Performed By: #### [id number] #### [facility] [address], [place] [address]ROL/Creat Ratio32 No GzaqsKnnk34-77LdybwmPaulding County Hospital Comment on above:Performed By: #### [id number] #### [facility] [address], [place] [address]Gtxfftm [Mass/Vol]9.6 mg/dLNormal8.9-11.1FSalem Regional Medical CenterComment on above:Performed By: #### [id number] #### [facility] [address], [place] [address]Jxipttly [Moles/Vol]102 mmol/ZQmzrbk222-650XsylgePaulding County HospitalComment on above:Performed By: #### [id number] #### [facility] [address], [place] [address]IM5 [Moles/Vol]33 mmol/HObtu04-33MnetsbPaulding County Hospital Comment on above:Performed By: #### [id number] #### [facility] [address], [place] [address]Oqdvfsyouj [Mass/Vol]0.9 mg/dLNormal0.5-1.3FSalem Regional Medical CenterComment on above:Performed By: #### [id number] #### [facility] [address], [place] [address]Kvksaepe (S) [Mass/Vol]1.8 g/dLNormal1.4-4.0Paul[facility] County HospitalComment on above:Performed By: #### [id number] #### [facility] [address], [place] [address]Bjdqtyq [Mass/Vol]153 mg/tBKmkmev29-247BxdoakPaulding County HospitalComment on above:Performed By: #### [id number] #### [facility] [address], [place] [address]Egfqmhdmg [Moles/Vol]3.8 mmol/LNormal3.5-5.3FSalem Regional Medical CenterComment on above:Performed By: #### [id number] #### [facility] [address], [place] [address]Lctioci [Mass/Vol]6.2 g/dLNormal6.0-7.8Paul[facility] County HospitalComment on above:Performed By: #### [id number] #### [facility] [address], [place] [address]Xuxpor [Moles/Vol]138 mmol/WJiaqgp932-493TwcpiuPaulding County HospitalComment on above:Performed By: #### [id number] #### [facility] [address], [place] [address]Zoqh nitrogen [Mass/Vol]29 mg/dLHigh5-21Paul[facility] County HospitalComment on above:Performed By: #### [id number] #### [facility] [address] [place], [place] [address]Eybzhs Medicine Office/Clinic Noteon 06-18-0238Lbyalh Medicine Office/Clinic NoteFahigh point hospital Medicine Office/Clinic Note Chief Complaint Medication Refills [...] no food allergies, no recurrent infections, no impairedimmunity Additional ROS info: Except as noted in [...] Comprehensive Metabolic Panel HgbA1c Lab Specimen Collect 57230 Lipid Panel 2. Hyperlipidemia, unspecified (E78.5: Hyperlipidemia, unspecified) Stable Controlled Continue atorvastatin 80 mg one tablet po daily Encourage low fat diet and daily exercise f/u in 6 months Ordered: CBC w/ Auto Diff Comprehensive Metabolic Panel HgbA1c Lab Specimen Collect 10155 Lipid Panel 3. Nonsmoker (Z78.9: Other specified [...] medical support in addressing this problem. Your BMIand weight management will be followed at subsequent [...] Daily, # 90 cap(s), Refills(s) 0, Pharmacy: [facility]/pharmacy #[id number], cm, 09/08/24 10:33:00 EDT, Height/Length Dosing, 67.8, kg, 09/08/24 10:33:00 EDT, Weight Dosing Follow-up With When Contact Information NEGAR DE LOS SANTOS CNP, FAM Within [address] [place] [address] Business (1) Additional Instructions: Diabetes Patient Education Diabetes Mellitus and Sick Day Management Problem List/Past Medical History Ongoing Aorto-iliac atherosclerosis (more content not included)...NormalPaulding County HospitalComment on above: Result Comment: Electronically Signed By: NEGAR DE LOS SANTOS CNP\.br\Date and Time Signed: 09/30/24 12:41 NCPTrtQ0vrp 40-06-3260MpZ7j (Bld) [Mass fraction]7.4 %High<=5.9Paul[facility] County HospitalComment on above:Performed By: #### [id number] #### [facility] [address], [place] [address]Mzgmh Panelon 79-18-6342Znfscyiocsu [Mass/Vol]94 mg/dLLow 120-200Paul[facility] County HospitalComment on above:Performed By: #### [id number] #### [facility] [address], [place] [address]Vwygmwwpeio in HDL [Mass/Vol]48 mg/dLInvalid Interpretation CodePaulding County HospitalComment on above:Result Comment: '>= 60 LOW RISK' '<= 40 HIGH RISK'Performed By: #### [id number] #### [facility] [address], [place] [address]Eqekclfiqmz in LDL [Mass/Vol]33 mg/dLNormal<=129Paul[facility] County HospitalComment on above:Performed By: #### [id number] #### [facility] [address], [place] [address]Hxjfkrnespi in VLDL [Mass/Vol]41 mg/dLHigh7-40Paul[facility] County HospitalComment on above:Performed By: #### [id number] #### [facility] [address], [place] [address]Jjpshawuwasi [Mass/Vol]205 mg/dLHigh<=149Paul[facility] County HospitalComment on above:Performed By: #### [id number] #### [facility] [address], [place] [address]iNNIff 53-25-8352mDML44 mL/min/1.73 j2Rnvuhw>=59Paulding County HospitalComment on above:Performed By: #### [id number] #### [facility] [address], [place] [address]Ydebixwnqu Visit Summaryon 23-40-8392Ipvqznpsjc Visit Summary Ambulatory Visit Summary JACQUELINRAFI :1955 Visit Date:09/08/2024 Ambulatory Visit Instructions Your [...] mg Tab) fluticasone nasal (Flonase 0.05 mg/inh Henderson) gabapentin (gabapentin 300 mg Cap) hydrochlorothiazide (hydrochlorothiazide [...] With: Mervin SHANNON, Francisco Terrell Where: [facility] [address] [address]- Sunday 10:45 AM EDT With: Tyler SHANNON, Maris Tony Where: [facility] [address] [address]- Medications What How Much When Why Instructions [...] Unchanged fluticasone nasal (Flonase 0.05 mg/ inh Henderson) 2 Sprays Nasal Inhalation Every day each [...] Flash Glucose Monitoring (Sensor). Replace sensor every 15days. Unchanged Misc Prescription (Misc DME Prescription) See instructions BD ultra fine mini pen [id number] X 3/ 16 Use 6 times a day to inject insulin Dx E10.8 5 boxes or pt needs 180 a month x3 monthswith 3 refills. Unchanged Misc Prescription (Pen Needle [...] Benign neoplasm of cerebral (more content not included)...[facility] Medicine Office/Clinic Noteon 92-50-5710Bptjxm Medicine Office/Clinic NoteFahigh point hospital Medicine Office/Clinic Note Chief Complaint The patient [...] not carry Lyme disease but can carry [place] spotted fever. She denies any fever, rash, [...] Neurological: oriented x 4, LOC appropriate for [facility] normal Assessment/Plan 1. Tick bite (W57.XXXA: Bitten or stung by nonvenomous insect and other nonvenomous arthropods, initial encounter) - Monitor for symptoms of [place] spotted fever, such as fever or rash. [...] medical support in addressing this problem. Your BMIand weight management will be followed at subsequent [...] See Instructions, 2 refills Flonase 0.05 mg/inh Henderson, 2 spray(s), Nasal, Daily Freestyle Lokesh 3+ [...] solution, 2.5 mg, SubCutaneous, (more content not included)...[facility] HospitalComment on above:Result Comment: Electronically Signed By: NEGAR DE LOS SANTOS CNP\.elliot\Date and Time Signed: 09/08/24 12:59 MGL28hm 46-98-994433Gwiv: Eugene Suazo MD Sent: 08/16/2024 4:01 PM EDT To: Dilia Oconnor MA Echo was normal. Advised patient of Dr. Suazo's findings. Patient verbalized understanding [facility] HospitalOrders Onlyon 95-61-8426Psbpdc Only [id number] Rafi Roper 1955 F Date Provider Department [place] 08/14/2024 [id number], [facility] History Problem Relation Age of Onset Pneumonia Father Lung cancer Brother Family Status - Relation Status Age at Mother Father Brother DeceasedNormalUniOhioHealth Marion General Hospital36on 60-57-811784WtwdhyMD Lupis Caicedo MA Her cholesterol is low. I want her to reduce atorvastatin from 80 mg daily to 20 mg daily. She should get a follow-up lipid profile in 3 months. Spoke to patient and advised her of Dr. Suazo's message. New script sent to [facility]. Order for repeat lipid panel ion 3 months mailed to patient 07/25/2024NormalUniOhioHealth Marion General HospitalMD Lupis Stallworth MA Her cholesterol is low. I want her to reduce atorvastatin from 80 mg daily to 20 mg daily. She should get a follow-up lipid profile in 3 months.Normal [facility] SystemOffice Visiton 87-56-4346Rqndow-up visit [id number] Rafi Roper 1955 F Date Provider Department Center 07/21/2024 MARYANA EUGENE GREGORY [place] Family History Problem Relation Age of Onset Pneumonia Father Lung cancer Brother Family Status - Relation Status Age at Mother Father Brother Level of Service:80958 [place] OFFICE/OUTPATIENT NEW MODERATE MDM 45 MINUTESNormal [facility] SystemAmbulatory Visit Summaryon 07-01-2024 Ambulatory Visit SummaryAmbulatory Visit Summary RAFI ROPER :1955 Visit Date:07/01/2024 [...] mg Tab) fluticasone nasal (Flonase 0.05 mg/inh Henderson) gabapentin (gabapentin 300 mg Cap) hydrochlorothiazide (hydrochlorothiazide [...] Preethi SHANNON, Maldonado Te[place] Where: [facility] Sunday 8:40 AM EDT With: Mervin SHANNON, Francisco Terrell Where: [facility] [place] [id number]- Medications What How Much When Why Instructions [...] Unchanged fluticasone nasal (Flonase 0.05 mg/ inh Henderson) 2 Sprays Nasal Inhalation Every day each [...] Flash Glucose Monitoring (Sensor). Replace sensor every 15days. Unchanged Misc Prescription (Misc DME Prescription) See instructions BD ultra fine mini pen goxhqgl75B X 3/ 16 Use 6 times a [...] cancer screening COVID Diabet (more content not included)...[facility] Medicine Office/Clinic Noteon 83-60-5879Flysni Medicine Office/Clinic NoteFahigh point hospital Medicine Office/Clinic Note Chief Complaint 6m follow [...] % (01/01/24 10:01:00) Referred to Urology @ [facility] due to hematuria & Digestive [facility] [...] refills due to inconsistencies and complications at [facility], impacting the handling of her diabetes and other chronic conditions. She also shared recent minor episodes of hemorrhoidal bleeding managed with gftz-mix-cyuvmyh options and highlighted urinary concerns previously evaluated by Dr. Oscar, with plans for a repeat bladder test. The patient anticipates her upcoming mammogram due to intermittent breast tenderness on the left side, despite the absence of discharge. Requests for closer monitoring, especially for diabetes, have been aligned withinsurance requirements mandating trimonthly reviews. - Scheduled repeat bladder testing due to previous minor urinary concerns. - Left breast tenderness, consideration for an earlier mammogram. - Evaluation of ankle swelling. - Medication refills and timing consents with [facility]. - Discussion over allergen management strategies, including pollen. - Evaluation of glucose-lowering alternatives to manage diabetes: introduction to Trulicity trial in place of Lantus or sliding scale insulin. - Insulin regimen review and potential reduction. - Recommendation for a presales consultant change and continuity care with [facility] cardiologists. Review of Systems PHQ Score Initial [...] level of consciousness appropriate for age, CN II- XII intact, motor strength equal & normal bilaterally, speech normal Abdomen: Soft, Non-tender, Non-distended, + Bowel sounds Assessment/Plan 1. 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 Ordered: [facility] External Ambulatory Referral 2. CHF (congestive heart failure) (I50.9: Heart failure, unspecified) The patient presents with significant bilateral leg swelling, raising suspicion for fluid retention. Continual monitoring with the existing diuretic therapy, with no further pharmaceuticals known to contribute to this symptom. Close observation and possible diuretic adjustment mentioned. Ordered: [facility] External Ambulatory Referral 3. DM type 2 causing vascular disease (E11.59: Type 2 diabetes mellitus with other circulatory complications) For the allergic shiner, suspected cat or pollen exposure was disc (more content not included)...[facility] HospitalComment on above:Result Comment: Electronically Signed By: Mervin SHANNON, Francisco Rudd.elliot\Date and Time Signed: 07/01/24 09:53 EDTUrine Cytology ([facility])on 00-12-4075Xilyizdbjzx exam Cytology (U) [Interp]Diagnosis InfoInvalid Interpretation [facility] Comment on above:Result Comment: A:Urine,Urine:Cystoscopy Interpretation - A few clusters of urothelial cells with mild atypia, low grade papillary urothelial neoplasm can not be excluded. Clinical correlation is indicated. Adequate cellularity for evaluation. CPT 36931 MicroScopic Description - Adequacy - Gross Description Site ID:A color Yellow fixative Alcohol Specimen designated Urine received in alcohol preservative and labeled with the patient???s name, consists of 100ml clear yellow fluid. Electronically signed by : on: 03/21/2024 12:31:11Performed By: #### [id number] #### [facility] [address], [place] [address]UR Urogramon [id number] UrogramExam Date/Time: 03/18/2024 08:39 EST Reason for Exam: [...] amount in ml's: 100 Rectal Contrast Given? NoNormalPaulding County HospitalCHEMISTRYOrdered By: SYSTEM SYSTEM on 62-71-5300Weuqbwytnd [Mass/Vol]0.8 mg/dLNormal0.5 - 1.3 mg/dL Remisol MnyftNGX74 mL/min/1.73 s3Jqqijs>=59mL/min/1.73 w2Cozhghf ChemCreatinine on 18-85-3614Nxsdvflbwq [Mass/Vol]0.8 mg/dLNormal0.5-1.3FSalem Regional Medical CenterComment on above:Performed By: #### [id number] #### [facility] [address] [place] [address]yFTTuk 62-22-4306sXCT47 mL/min/1.73 j2Shwvof>=59Paulding County HospitalComment on above:Performed By: #### [id number] #### [facility] [address], [place] [address]Seyurhnly Patient Summaryon 20-55-9175Xmxycuzga Patient Summary Inpatient Patient Summary [address] [address] Clinical Summary Person Information Name: RAFI ROPER Age: 69 Years : 1955 Sex: Female PCP: Francisco Mckeon MD Marital Status: Race: White Ethnicity: Non- or Language: Nigerian Visit Id: Visit Reason: MICROSCOPIC HEMATURIA Speciality: Acuity: Enc Type: Outpatient Med Service: Surgery Arrival: 03/17/2024 08:51:37 Discharge: Dispo Type: Address: [address] [place] [phone] Provider Notes: Diagnosis: Microscopic hematuria; Urethral caruncle; [...] amount to urethra/vagina 3x a week for 1month, then 2x a week afterwards. Refills: 2. ezetimibe (Zetia 10 mg Tab) 1 Tablets By Mouth every day. Refills: 1. fluticasone nasal (Flonase 0.05 mg/inh Henderson) 2 Sprays Nasal Inhalation every day. each nostril. Refills: 0. fluticasone nasal (fluticasone Nasal 0.05 mg/inh Price) USE 2 SPRAYS IN EACH NOSTRIL ONCE [...] 351- 400 10u and 1unit per 15 carbs. insulin [...] Glucose Monitoring 14 Day System (Sensor)) Freestyle Libre2 Flash Glucose Monitoring 14 Day System (Sensor). [...] problems. Type Location Start Finish State Open [facility] [place] 07/01/2024 8:30 AM 07/01/2024 8:45 AM Confirmed Patient Education Information: EU - Cystoscopy Discharge Instructions (CUSTOM)[facility] Main OR Intraoperative Recordon 30-32-3520Qltw OR Intraoperative RecordMain OR Intraoperative Record IntraOp Document Type FTURO Summary Primary Physician: Maris Scott MD Finalized Date/Time: 03/17/24 09:58:22 Pt. Name: RAFI ROPER /Sex: 1955 Female Med Rec #: [id number] Physician: Maris Scott MD Financial #: [id number] Pt. Type: O Room/Bed: / Admit/Disch: 03/17/24 [...] Kendall R Role Performed Surgeon - Primary Experimental Technician - Primary Scrub - Primary Time In [...] Position Verified Availability Equipment, Medication Time Out Tyler SHANNON, Maris Tony, Verified (If Participants Krys Singh, Applicable) Cristobal Tran Time Out Complete 03/17/24 09:50:00 Allergies Reviewed? Yes Allergies Reviewed Self/Patient With Body Position Frog Legged Prep Area VAGINA Prep Agents Hibiclens Skin. Condition Intact, [place], Warm, & Description N/A Dry Additional Other [...] Krys Singh 03/17/24 09:58 Krys Singh 03/17/24 09:58NoMer[facility] CenterMain OR Preoperative Recordon 78-17-9381Vbvy OR Preoperative RecordMain OR Preoperative Record Holding Area Document Type FTURO Summary Primary Physician: Maris Scott MD Finalized Date/Time: 03/17/24 09:46:34 Pt. Name: RAFI ROPER Louise Morataya/Sex: 1955 Female Med Rec #: [id number] Physician: Maris Scott MD Financial #: [id number] Pt. Type: O Room/Bed: / Admit/Disch: 03/17/24 [...] or her perioperative plan of care The patient'sright to privacy is maintained Surgery Checklist FTURO Entry 1 Patient Birthday, ID Band Procedure Surgical Consent, With Identification: Check, Patient Verification: Patient Participation NPO after Midnight: n/a Limitations: up ad lindsay Complaints of Pain: No Skin Integrity Intact, [place], Warm, & Dry Vitals - EU Blood Pressure 134/94 Pulse 82 bpm Respirations 18 br/min SPO2 96 % Additional FISH RN Reviewed Yes Specimens Collected Last Modified By: Krys Singh 03/17/24 09:45:41 Finalized By: Krys Singh Document Signatures Signed By: Krys Singh 03/17/24 09:45 Burgderfer, Krys E 03/17/24 09:45 Burgderfer, Krys E 03/17/24 09:46 Burgderfer, Krys E 03/17/24 09:45 Burgderfer, Krys E 03/17/24 09:46 Burgderfer, Krys E 03/17/24 09:46 Burgderfer, Krys E 03/17/24 09:45 Burgderfer, Krys E 03/17/24 09:46 Burgderfer, Krys E 03/17/24 09:46Normal Paulding County HospitalOperative Reporton [id number] Report Operative Report Patient: RAFI ROPER Age: 69 years Sex: Female : 1955 Associated Diagnoses: None Author: Tyler SHANNON, Maris Tony Procedure Operative Information Details: Date/ Time: 03/17/2024 09:59:00. Pre-Op Dx: Microscopic hematuria (PHD00-VW R31.29, Discharge, Medical). Post-Op Dx: Same. Anesthesia Type: Local. Procedure: Local Cystoscopy. Complications: None. Risks/Benefits/Informed Consent: Surgical risks, benefits, details of the procedure have been explained to the patient, Full informed consent has been obtained. Intraoperative Information Prepped: Patient is brought back to the endoscopy suite, Patient is placed in supine position (Frogleg), Patient prepped in the usual fashion with Betadine solution (Hibiclens), 2% Xylocaine Jelly isplaced per Urethra, After waiting several minutes the [...] regarding urethral caruncle/vaginal atrophy. Estrace cream started .[facility] HospitalComment on above:Result Comment: Electronically Signed By: Maris Scott MD\.br\Date and Time Signed: 03/17/24 10:01ESTOutpatient Surgery Discharge Instructionon 66-80-8486Uqdanpszpq Surgery Discharge InstructionOutpatient Surgery Discharge Instruction [place] [phone] Patient Discharge Instructions PERSON INFORMATION Name: RAFI [...] Comments: Call for any problems. Type Location [facility] [place] 07/01/2024 8:30 AM 07/01/2024 8:45 AM Confirmed [...] you have a fever over 100 degrees. IJACQUELIN NANCY J, have received the attached patient education materials/instructions and have verbalized understanding: May we do a follow up call? Yes No I was present when discharge instructions were given Patient Signature Date Clinican/Nurse Signature Date You may receive a survey from [facility] asking you to rate your care experience. Your feedback is important and will help us understand what we do well and how we can improve the quality of care we provide to you, your loved ones and our community. It???s an honor to serve you. Thank you for choosing [facility] HospitalUrine Cytology ([facility])on 27-73-0877DE Method of Extraction CystoscopyNormalPaulding County HospitalComment on above:Performed By: #### [id number] #### [facility] [address] [place], [place] [address]JN Number of Guaf5Lnkyqfo Interpretation [facility] HospitalComment on above:Performed By: #### [id number] #### [facility] [address], [place] [address]WH SpecimenUrineNoMercy Health Springfield Regional Medical CenterComment on above:Performed By: #### [id number] #### [facility] [address], [place] [address]IO Type of ServiceTechnical OnlyOhioHealth Marion General HospitalComment on above:Performed By: #### [id number] #### [facility] [address], [place] [address]Zxumj and Vascular Office/Clinic Noteon 81-93-6287Izdpm and Vascular Office/Clinic NoteHeart and Vascular Office/Clinic Note Chief Complaint 6 month f/u - CAD History of Present Illness The patient is a very pleasant 68-year-old female who presents for a scheduled follow-up appointment. She does have a past medical history of diabetes mellitus type II with insulin requirements, hypertension, dyslipidemia, coronary artery disease with history of coronary artery bypass grafting surgery in 2020 at [facility]. At that time, she presented with [...] dizziness or lightheadedness, palpitations, syncope or presyncope. Shestates compliance with current treatment plan. Denies any [...] or anginal-like symptoms. Will submit a request [facility] regarding prior cardiac workup, apparently it was [...] Daily, 3 refills cholestyramine Flonase 0.05 mg/inh Henderson, 2 spray(s), Nasal, Daily fluticasone Nasal 0.05 mg/inh Price, See Instructions Freestyle Lokesh Flash Glucose Monitoring [...] ER Tab, 100 mg= (more content not included)...[facility] HospitalComment on above:Result Comment: Electronically Signed By: Miguel SHANNON, Janes Hubbard\.br\Date and Time Signed: 01/25/24 14:11 ESTAmbulatory Visit Summaryon 19-63-4372Esdejocgad Visit SummaryAmbulatory Visit Summary RAFI ROPER :1955 Visit Date:01/24/2024 Ambulatory Visit Instructions Your Diagnosis Family history of colon cancer History of Clostridium difficile colitis History of cholecystectomy Fecal urgency Bowel habit changes Your Care Team Attending Physician - Radha SHANNON, Raman Cochran Primary Care Physician - Mervin SHANNON, Francisco Terrell This Is Your Medications List cholestyramine (Questran [...] mg Tab) fluticasone nasal (Flonase 0.05 mg/inh Henderson) fluticasone nasal (fluticasone Nasal 0.05 mg/inh Price) gabapentin (gabapentin 300 mg Cap) insulin aspart [...] Miguel SHANNON, Janes Hubbard Where: [facility] [place] Sunday 11:00 AM EST With: Where: [facility] Sunday 9:15 AM EST With: Where: [facility] Sunday 8:30 AM EDT With: Mervin SHANNON, Francisco Terrell Where: [facility] Family Medicine [place] [phone]- Medications What How Much When Why Instructions New cholestyramine (Questran 4 g/ 9 g oral powder) 1 Packets By Mouth 2 times a day Family history of colon cancer Pickup at [facility]/pharmacy #[id number] Unchanged aspirin (aspirin 81 mg Oral EC [...] By Mouth Every day Contact prescribing physician ifquestions or concerns Unchanged fluticasone nasal (Flonase 0.05 mg/ inh Henderson) 2 Sprays Nasal Inhalation Every day each nostril Contact prescribing physician if questions or concerns Unchanged fluticasone nasal (fluticasone Nasal 0.05 mg/ inh Price) See instructions USE 2 SPRAYS IN EACH NOSTRIL ONCE A DAY Contact prescribing physician if questions or concerns Unchanged gabapentin (gabapentin 300 mg Cap) 1 Capsules By Mouth Once a day (at bedtime) BMI 26.0-26.9,adult Non-smoker Diabetic neuropathy Contact prescribing physician if questions or concerns Unchanged insulin aspart (NovoLOG FlexPen 100 units/ mL injectable solution) See instructions checkblood sugars AC and Hs and cover 150-200 2u, 201-250 4u, 251- 300 6u, 301-350 8u, 351-400 10u and 1unit [...] 14 days. Contact prescrib (more content not included)...[facility] Gastroenterology Office/Clinic Noteon 84-28-1114Yskpjybhssmdzqgk Office/Clinic NoteGastroenterology Office/Clinic Note Chief Complaint 5 year colon [...] 90.1 fL (07/29/23) Chloride: 106 mmol/L (07/29/23) Platte Absolute: 0.5 E9/L (07/29/23) CO2: 30 mmol/L (07/29/23) [place]atte Auto: 9.1 % (07/29/23) Creatinine: 0.8 mg/dL [...] BID, # 60 EA, Refills(s) 0, Pharmacy: [id number], 164,cm, 01/24/24 8:54:00 EST, Height/Length Dosing, 66, kg, [...] 10 mg oral table (more content not included)...[facility] HospitalComment on above:Result Comment: Electronically Signed By: Radha SHANNON, Raman Cochran\.br\Date and Time Signed: 01/23/2409:31 [facility] Urineon 01-19-2024 Bacteria identified Cx Nom (U)Microbiology PROCEDURE: Urine Culture [R1] SOURCE: U CleanCatch BODY SITE: COLLECTED DATE/TIME: 01/17/2024 13:14 EDT RECEIVED DATE/TIME: 01/17/2024 19:18 EDT START DATE/TIME: 01/17/2024 19:18 EDT FREE TEXT SOURCE: KAYLA GEORGE PA-C, PA-C, JENNIFER E FINAL REPORTS Final Report [] Verified Date/Time: 01/19/2024 10:12 EDT No growth at 2 days. Performing Locations R1: This test was performed at: [facility] [employer], [address] [place] [address], [place], [address]- , [place], ZjcrmpCveurwOhioHealth Marion General HospitalComment on above:Performed By: #### [id number] #### [facility] [address], [place] [address]VA PVR Lower EXT Complete Bilaton 65-76-4693UO PVR Lower EXT Complete BilatExam Date/Time: 01/14/2024 10:02 EDT Reason for Exam: [...] Michael Jeff MD Transcribed by: NELIDA Technologist: [facility] CenterMM screening mammo BI w/CADon 22-58-0858GV screening mammo BI [facility] Main [place] [address] [place] [address] Mammography Report Signed Patient: Rafi Roper MR#: [id number] : 1955 Acct:[id number] Age/Sex: 68 / F ADM Date: 01/17/24 Loc: IN Room: Type: [facility] Attending Dr: Referral Self Copies to: SELF,REFERRAL [...] M.D.01/17/2024 2:25 PM Dictation Location: [facility] Transcribed By: ANITA 01/17/24 142 Dictated By: Whitney Soni MD 01/17/24 142 Signed By: 01/17/24 1425[facility] Physician GroupURINALYSISOrdered By: SYSTEM SYSTEM on 03-66-4124Rwdbwpvjr Ql (U)NegativeNormalNegativemg/dLFTMC UA Auto SS Clarity (U)Clear (01/17/24 1:14 PM)NormalClearFTM UA Auto SSColor (U)Light-Yellow 1 (01/17/24 1:14 PM)NormalYellowFT UA Auto SSComment on above:Interpretive Data: Microscopic readings are only performed on those samples that meet specific criteria set forth by [facility].Epithelial cells.squamous Auto (Urine sed) [#/Area]0-2 graded/HPFInvalid Interpretation CodeSTROUD REGIONAL [facility] UA Auto SSGlucose Ql (U)NegativeNormalNegativemg/dLFT UA Auto SS Hemoglobin Auto test strip (U) [Mass/Vol]1+ mg/dLInvalid Interpretation Code Negativemg/dLFT UA Auto SSKetones Auto test strip Ql (U)NegativeNormal Negativemg/dLFT UA Auto SSLeukocyte esterase Auto test strip Ql (U)Negative NormalNegativeLeu/uLFT UA Auto SSMucus Auto Ql (U)Trace graded/LPFNormal Negativegraded/LPFFTMC UA Auto SSNitrite Auto test strip Ql (U)NegativeNormal Negativemg/dLFT UA Auto SSpH (U)6.5 *NA* (01/17/24 1:14 PM)Invalid Interpretation Code5.0 - 9.0[facility] UA Auto SSProtein Ql (U)NegativeNormalNegativemg/dLFT UA Auto SSRBC Ql (U)4-20 graded/HPFInvalid Interpretation Code0-3graded/HPFFT UA Auto SSSpecific gravity (U) [Rel density]1.017 *NA* (01/17/24 1:14 PM)Invalid Interpretation Code1.005 - 1.030FT UA Auto SS Urobilinogen (U) [Mass/Vol]NegativeNormalNegativemg/dLFT UA Auto SSWBC Auto (Urine sed) [#/Area]0-5 graded/HPFNormal0-5graded/HPFFT UA Auto SSURINALYSIS Ordered By: Bernie Ramos on 30-88-8538MV Spec DescClean Catch (01/17/24 1:14 PM)NormalSTROUD REGIONAL MEDICAL [facility] UA Auto SSUrinalysis with Microon 01-17-2024 Bilirubin Ql (U)NegativeNormalNegativePaulding County HospitalComment on above:Performed By: #### [id number] #### [facility] [address], [place] [address]Xkotrqe (U)ClearNormalClearPaulding County HospitalComment on above:Performed By: #### [id number] #### [facility] [address], [place] [address]Nexbm (U)Light-YellowNormalYellowPaulding County Hospital Comment on above:Result Comment: Microscopic readings are only performed on those samples that meet specific criteria set forth by [facility].Performed By: #### [id number] #### [facility] [address], [place] [address]Nhbzzolqir cells.squamous Auto (Urine sed) [#/Area]0-2Invalid Interpretation CodePaulding County HospitalComment on above:Performed By: #### [id number] #### [facility] [address], [place] [address]Umuochn Ql (U)NegativeNormalNegKettering Health Troy Comment on above:Performed By: #### [id number] #### [facility] [address], [place] [address]Ibtjlwjdds Auto test strip (U) [Mass/Vol]1+ mg/dLAbnormal NegativePaulding County HospitalComment on above:Performed By: #### [id number] #### [facility] [address], [place] [address]Zleuxlu Auto test strip Ql (U)NegativeNormalNegativePaulding County HospitalComment on above:Performed By: #### [id number] #### [facility] [address], [place] [address]Pzkyjqcdy esterase Auto test strip Ql (U)NegativeNormalNegRegional Medical CenterComment on above:Performed By: #### [id number] #### [facility] [address], [place] [address]Gsluv Auto Ql (U)TraceNormalNegativePaulding County Hospital Comment on above:Performed By: #### [id number] #### [facility] [address] [place] [address]Ayvwmzh Auto test strip Ql (U)NegativeNormalNegativePaulding County HospitalComment on above:Performed By: #### [id number] #### [facility] [address] [place] [address]cJ (U)6.5 [pH]Invalid Interpretation Code5.0-9.0Paulding County HospitalComment on above:Performed By: #### [id number] #### [facility] [address] [place] [address]Yatcfjm Ql (U)NegativeNormalNegKettering Health Troy Comment on above:Performed By: #### [id number] #### [facility] [address] [place] [address]HTK Ql (U)1-08Cmevydsa6-7Hlakjl [facility] CenterComment on above:Performed By: #### [id number] #### [facility] [address] [place] [address]Ftfduxcw gravity (U) [Rel density]1.017Invalid Interpretation Code1.005-1.030Paulding County HospitalComment on above:Performed By: #### [id number] #### [facility] [address] [place] [address]Wgxisgswblbb (U) [Mass/Vol]NegativeNormalNegativePaulding County HospitalComment on above:Performed By: #### [id number] #### [facility] [address] [place] [address]JME Auto (Urine sed) [#/Area]6-2Dmbwly3-9Bpqcmq [facility] CenterComment on above:Performed By: #### [id number] #### [facility] [address], [place] [address]Wjqg of Urine collection methodClean Eileen [facility] CenterComment on above:Performed By: #### [id number] #### [facility] [address], [place] [address]Cluyutz Office/Clinic Noteon 26-40-0994Ozmskeo Office/Clinic NoteUrology Office/Clinic Note Chief Complaint microhematuria HPI Staff Pt is a rereferral for microhematuria by Dr. Mckeon. Last seen by KML in office 11/02/21. Dx: ureteral stone Dysuria: [...] tract no Cysto years ago by Dr. Vasquez for microscopic hematuria. Negative. based on the [...] ureter) CT AP wo contrast 09/26/21 at [facility] - left obstructing 2mm UPJ/proximal ureter stone results in mild upstream left hydronephrosis and perirenal standing. Also shows left superior pole 2.4cm renal cyst,simple. KUB 09/26/21 [facility] - negative. Pt passed stone naturally. Mentions it was small in size, and black, and it was painless when she passed the stone. First stone event. Pt submitted the stone for analysis at Dr. Butler's office and was told it was ca ox. No recent imaging. Following stone prevention recommendations. Asymptomatic. Follow-up With When Contact Information KAYLA GEORGE PA-C, URL [address] [place] [address] Additional Instructions: F/up pending micro UA results Patient Education Hematuria, Adult Documentation recorded by the jack Fry accurately reflects the services(s) I performed and decisions made by me. Authenticated by Kayla Geroge PA-C on 01/17/2024 13:11:32. ISalma, personally scribed for Jenn George PA-C on 01/17/2024 13:05:04. Electronicallysigned by jack Fry on 01/17/2024 13:05:04. Problem List/Past Medical History Ongoing Acute URI [...] Oral, Daily, 1 refills Flonase 0.05 mg/inh Henderson, 2 spray(s), Nasal, Daily fluticasone Nasal 0.05 mg/inh Price, See Instructions Freestyle Lokesh Flash Glucose Monitoring 14 Day System (Sensor), See Instructions, 11 refills gabapentin 300 mg Cap, 300 mg= 1 cap(s), Oral, Once a day (at bedtime), 3 refills Lantus Solostar Pen 100 units/mL subcutaneous solution, See Instructions, 3 refills levothyroxin (more content not included)...[facility] Comment on above:Result Comment: Electronically Signed By: KAYLA GEORGE PA-C\.br\Date and Time Signed: 01/16/2413:11 EDT\.br\Electronically Co-Signed By: Slama Fry\.br\Date and Time Co-Signed: 01/17/24 13:05 EDTC Urineon 45-89-4057Cgscqsij identified Cx Nom (U)Microbiology PROCEDURE: Urine Culture [R1] SOURCE: U CleanCatch BODY SITE: COLLECTED DATE/TIME: 01/01/2024 09:40 EDT RECEIVED DATE/TIME: 01/01/2024 17:52 EDT START DATE/TIME: 01/01/2024 17:52 EDT FREE TEXT SOURCE: Mervin SHANNON, Francisco Mckeon MD, Francisco Terrell FINAL REPORTS Final Report [] Verified Date/Time: 01/03/2024 06:47 EDT 300 cfu/ml Mixed skin contaminants Performing Locations R1: This test was performed at: [facility], [address] [place] [address], [address] , , LfukesGkhcvfOhioHealth Marion General HospitalComment on above:Performed By: #### [id number] #### [facility] [address] [place] [address]Cqehrrbxzd Visit Summaryon 44-87-4346Oupxghhtqd Visit Summary Ambulatory Visit Summary RAFI ROPER [...] physician if questions or concerns Misc Prescription (UiTVe Flash Glucose Monitoring 14 Day System (Sensor)) Misc Prescription (Misc DME Prescription) aspirin (aspirin 81 mg Oral EC Tab) atorvastatin (atorvastatin 80 mg Tab) ezetimibe (Zetia 10 mg Tab) fluticasone nasal (Flonase 0.05 mg/inh Henderson) fluticasone nasal (fluticasone Nasal 0.05 mg/inh Price) gabapentin (gabapentin 300 mg Cap) insulin aspart [...] Miguel SHANNON, Janes Hubbard Where: [facility] [place] Sunday 8:30 AM EDT With: Mervin SHANNON, Francisco Terrell Where: [facility] Medicine [place] [phone]- You Need to Complete the Following US PVR Lower EXT Complete Bilat, 01/01/24, Routine, Order for future visit, Transport Mode: Ambulatory, Reason: Leg pain, No, HTN (hypertension) Peripheral vascular disease, unspecified Screeningfor colon cancer Hematuria, unspecified Type 2 diabetes mellitus with hyperlipid... Medications What How Much When Why Instructions Changed Misc Prescription (Pen Needle 31G x 6mm) See instructions Pen Needle 31G x 6mm. Pt needs 5 boxes of 3 months supply. Pickup at [facility]/pharmacy #[id number] Unchanged dapagliflozin (dapagliflozin 10 mg oral tablet) 1 Tablets By Mouth Every day Pickup at [facility]/pharmacy #[id number] Unchanged losartan (losartan 50 mg Tab) 1 Tablets By Mouth 2 times a day Pickup at [facility]/pharmacy #[id number] Unchanged aspirin (aspirin 81 mg Oral EC Tab) 1 Tablets By Mouth Every day Contact prescribing physician if questions or concerns Unchanged atorvastatin (atorvastatin 80 mg Tab) 1 Tablets By Mouth Every day Contact prescribing physician if questions or concerns Unchanged ezetimibe (Zetia 10 mg Tab) 1 Tablets By Mouth Every day Contact prescribing physician ifquestions or concerns Unchanged fluticasone nasal (Flonase 0.05 mg/ inh Henderson) 2 Sprays Nasal Inhalation Every day each nostril Contact prescribing physician if questions or concerns Unchanged fluticasone nasal (fluticasone Nasal 0.05 mg/ inh Price) See instructions USE 2 SPRAYS IN EACH NOSTRIL ONCE A DAY Contact prescribing physician if questions or concerns Unchanged gabapentin (gabapentin 300 mg Cap) 1 Capsules By Mouth Once a day (at bedtime) BMI 26.0-26.9,adult Non-smoker Diabetic neuropathy Contact prescribing physician if questions or concerns Unchanged insulin aspart (NovoLOG FlexPen 100 units/ mL injectable solution) See instructions checkblood sugars AC and Hs and cover 150-200 2u, 201-250 4u, 251- 300 6u, 301-350 8u, 351-400 10u and 1unit [...] ER Tab) 1 (more content not included)... [facility] Office/Clinic Noteon 01-01-2024 Family Medicine Office/Clinic NoteFamily Medicine Office/Clinic Note Chief Complaint The patient presents with concerns including frequent nighttime urination, leg weakness, and a request for preventative screenings. [facility] Staff Rafi is a 68 year old [...] with multiple health concerns during this visit. Danieldrissorts a long-standing history of blood in the urine, which has been present since she began visits with Dr. Butler, spanning over several years. The blood is persistent, but the patient's physicianindicates it may not be an immediate issue [...] the symptoms appear to improve slightly after res t. A detailed evaluation of her vascular health [...] level of consciousness appropriate for age, CN II- XII intact, motor strength equal & normal bilaterally, speech normal Abdomen: Soft, Non-tender, Non-distended, + Bowel sounds Assessment/Plan 1. HTN (hypertension) (I10: Essential (primary) hypertension) The patient requires continued monitoring and management of her blood pressure within target ranges. Regular use of antihypertensive medication, dietary considerations, and lifestyle modifications are essential components of her care plan. Current medication regimen will be adjusted to ensure bloodpressure remains well-controlled. Ordered: [facility] Internal Ambulatory Referral [facility] Internal Ambulatory Referral US PVR Lower EXT Complete Bilat 2. Peripheral vascular disease, unspecified (I73.9) Differential diagnosis includes peripheral vascular disease. Appropriate vascular studies such as an ankle-brachial index (BREEZY) may need to be performed to determine blood flow to the legs. Management will depend on these findings, potentially leading to surgical or conservative interventions. Ordered: [facility] Internal Ambulatory Referral [facility] Internal Ambulatory Referral US PVR Lower EXT Complete Bilat 3. Screening for colon cancer (Z12.11: Encounter for sc (more content not included)...NormalPaulding County HospitalComment on above:Result Comment: Electronically Signed By: Mervin SHANNON, Francisco Terrell\.br\Date and Time Signed: 01/01/24 09:58 EDTCHEMISTRYOrdered By: SYSTEM SYSTEM on 85-18-0016Rqgmdrlqabl [Mass/Vol] 95 mg/gFJvc226 - 200 mg/dLRemisol ChemCholesterol in HDL [Mass/Vol]47 mg/dL Invalid Interpretation CodeRemisol ChemComment on above:Result Comment: '>= 60 LOW RISK' '<= 40 HIGH RISK'Cholesterol in LDL [Mass/Vol]34 mg/dLNormal<=129mg/dLRemisol ChemCholesterol in VLDL [Mass/Vol]18 mg/dLNormal7 - 40 mg/dLRemisol Chem Triglyceride [Mass/Vol]89 mg/dLNormal<=149mg/dLRemisol ChemLipid Panelon 91-36-8125Bdottwlaanx [Mass/Vol]95 mg/cDYrj983-820YhydbaPaulding County Hospital Comment on above:Performed By: #### [id number] #### [facility] [address], [place] [address]Imjbqtmucmf in HDL [Mass/Vol]47 mg/dLInvalid Interpretation CodePaulding County HospitalComment on above:Result Comment: '>= 60 LOW RISK' '<= 40 HIGH RISK'Performed By: #### [id number] #### [facility] [address], [place] [address]Nkzihdtrqnu in LDL [Mass/Vol]34 mg/dLNormal<=129Paulding County HospitalComment on above:Performed By: #### [id number] #### [facility] [address], [place] [address]Usbuwratmqv in VLDL [Mass/Vol]18 mg/dLNormal7-40Paulding County HospitalComment on above:Performed By: #### [id number] #### [facility] [address], [place] [address]Yhkbwjdwzvsk [Mass/Vol]89 mg/dLNormal<=149Paulding County HospitalComment on above:Performed By: #### [id number] #### [facility] [address], [place] [address]Fturpu Summary.on 31-43-4220Ufqfla Summary. TDKZIfwe45NVt8rDh+PGhlYWQ+IY1HSIGgZ73ynOFsjA1hE7QNFQsRIthnWRBTBDtVHnFrvdPhXG8hyC NjZXJu [file] bGxhcHNlOiBjb (more content not included)...NormalPaulding County Hospital Coding Summary. FNQPKnvg42ZLy3fDd+PGhlYWQ+US2MRTLuU69mmTVwuQ9oN3FLGBwYHrisRLDRQWyGCqGjjaRpDR7gnO NjZXJu [file] bGxhcHNlOiBjb (more content not included)...[facility] Visit Summaryon 23-00-5976Owytdbebwf Visit Summary RAFI ROPER :1955 Visit Date:09/10/2023 Ambulatory Visit Instructions Your Diagnosis Benign neoplasm of cerebral meninges BMI 26.0-26.9,adult Over weight Nonsmoker Your Care Team Attending Physician - Francisco Mckeon MD Primary Care Physician - Francisco Mckeon MD This Is Your Medications List Misc Prescription ([email or web address] Lokesh Flash Glucose Monitoring 14 Day System [...] EDT With: Francisco Mckeon MD Where: [facility] Family [facility] Medicine Office/Clinic Noteon [id number] Medicine Office/Clinic NoteI Staff Rafi is a 68 year old [...] 16 gram, Refill(s) 0, each nostril, [facility]/pharmacy #[id number], 154, cm, 09/10/23 11:04:00 EDT, Height/Length Dosing, 64, kg, 09/10/23 11:04:00 EDT, Weight Dosing insulin glargine, See Instructions, 15 units sub q in the morning and 17 units sub q in the evening, # 15 mL, Refills(s) 3, Pharmacy: [facility]/pharmacy #[id number], 154, cm, 07/29/23 12:14:00 EDT, Height/LengthDosing, 63.5, kg, 07/29/23 12:14:00 EDT, Weight Dosing [...] 1 tab(s), Oral, Once Flonase 0.05 mg/inh Henderson, 2 spray(s), Nasal, Daily Freestyle Lokesh Flash Glucose Monitoring 14 Day System (Sensor), See Instructions, 11 refills gabapentin 300 mg Cap, 300 mg= 1 cap(s), Oral, Once a day (at bedtime), 3 refills Lantus Solostar Pen, See Instructions levothyroxine 50 mcg (0.05 mg) Tab, 50 mcg= 1 tab(s), Oral, Daily, 3 refills losartan 50 m (more content not included)...[facility] Comment on above:Result Comment: Electronically Signed By: Mervin SHANNON, Francisco Rudd.br\Date and Time Signed: 09/10/23 11:31 EDTPatient Educationon 09-10-2023 Patient EducationNutrition BMI for Adults What is BMI? Body mass index (BMI) is a number that is calculated from a person's weight and height. BMI can help estimate how much of a person's weight is composed of fat. BMI does not measure body fat directly.Rather, it is an alternative to procedures that [...] your height. Both height and weight are measured,and the BMI is calculated from those numbers. This can be done either in [place] ([place] or metric measurements. Note that charts and online BMI calculators are available to help you find your BMI quickly and easily without having to do these calculations yourself. To calculate your BMI in Nigerian ([place] measurements: 1. Measure your weight in [...] meters squared number. In this example: 70 ?3.1 = 22.6. This is your BMI. What [...] for Disease Control and Prevention: www.cdc.gov ? [place] Heart Association: www.heart.org ? National Heart, Lung, and Blood [place]: www.nhlbi.nih.gov Summary ? Body mass index (BMI) is a number that is calculated from a person's weight and height. ? BMI may help estimate how much of a person's weight is composed of fat. BMI can help identify those who may be at higher risk for certain medical problems. ? BMI can be measured using Nigerian measurements or metric measurements. ? BMI charts are used to identify whether you are underweight, normal weight, overweight, or obese. This information is not intended to replace advice given to you by your health care provider. Make sure you discuss any questions you have with your health care provider. Document Revised: 11/26/2019 Document Reviewed: 10/03/2019 ValueFirst Messaging Patient Education ? 2022 [employer].[facility] BMPon 13-44-7838Dqbqu gap [Moles/Vol]9 mmol/LNormal6-16[facility] HospitalComment on above:Performed By: #### [id number], 03579320, 3126267, 5056300, 8992071 ####[facility] [address] [place], [place] [address]Rmawjeo [Mass/Vol]9.2 mg/dLNormal8.9-11.1[facility] CenterComment on above:Performed By: #### 71493795, 30175930, 2714435, 2918582, 8360263 ####[facility] [address] [place] [address] Chloride [Moles/Vol]106 mmol/IYzsjxy589-271BucalhPaulding County HospitalComment on above:Performed By: #### 56481961, 26623454, 3235491, 1913675, 4409703 ####[facility] [address] [place], [place] [address]VU4 [Moles/Vol]30 mmol/DFrsybv14-16KidlquPaulding County HospitalComment on above: Performed By: #### 01309486, 64572346, 9314595, 0025117, 2868958 ####[facility] [address] [place], [place] [address]Npkqwuzrro [Mass/Vol]0.8 mg/dLNormal0.5-1.3FSalem Regional Medical CenterComment on above: Performed By: #### 46652848, 98873455, 0596200, 0960032, 9240359 ####[facility] [address] [place], [place] [address]Hvdtlle [Mass/Vol]153 mg/aFXnyzof48-335XjmptrPaulding County HospitalComment on above: Performed By: #### 67747337, 70969216, 8551842, 4780045, 4925330 ####[facility] [address] [place], [place] [address]Jgvcdjnlj [Moles/Vol]3.7 mmol/LNormal3.5-5.3FSalem Regional Medical CenterComment on above: Performed By: #### 32431105, 72972133, 0506839, 4802020, 5203006 ####[facility] [address] [place], [place] [address]Ksswdf [Moles/Vol]141 mmol/PFdgvax719-952WawizePaulding County HospitalComment on above: Performed By: #### 73633835, 28363084, 5182192, 5559949, 5751832 ####[facility] [address] [place], [place] [address]Dwkz nitrogen [Mass/Vol]21 mg/dLNormal5-21[facility] HospitalComment on above: Performed By: #### 25870417, 99858126, 7217769, 7700243, 1619179 ####[facility] [address] [place], [place] [address]Mkpw nitrogen/Creatinine [Mass ratio]26 No FsoptJszk18-33GlfmjsPaulding County Hospital Comment on above:Performed By: #### 36053452, 57755863, 0481682, 8656177, 6738272 ####[facility] [address] [place], [place] [address]FJS w/ Auto Diffon 39-82-7031Nsmisdkdv/100 WBC (Bld)0.7 %Normal0.0-2.0 [facility] HospitalComment on above:Performed By: #### 67560948, 52920973, 6388574, 2433070, 4463066 ####[facility] [address] [place] [address]Yrufenvgh/Leukocytes Auto (Bld) [Pure # fraction]0.0 E9/LNormal0.0-0.2FSalem Regional Medical CenterComment on above: Performed By: #### 64176012, 01757441, 1753234, 5750411, 3728051 ####[address] [address]Isfolhsrdwk (Bld) [#/Vol]0.2 E9/LNormal0.0-0.5FSalem Regional Medical CenterComment on above: Performed By: #### 24525882, 67124609, 7752375, 2581419, 2511153 ####[address] [address]Rctplzfnyix/100 WBC (Bld)4.1 %Normal0.0-8.0Paul[facility] County HospitalComment on above:Performed By: #### 04757200, 28883716, 1840980, 3960007, 3172674 ####[address] [address]Snmymkvptkp distribution width (RBC) [Ratio]13.3 %Dqdsiu87.9-14.2FSalem Regional Medical CenterComment on above:Performed By: #### 79642909, 89267815, 0047322, 4189446, 9616141 ####[address] [address] Hematocrit (Bld) [Volume fraction]40.9 %Ipisup68.0-46.0[facility] County HospitalComment on above:Performed By: #### 36653630, 31977734, 5483080, 5994607, 8861164 ####[facility] [address] [place], [place] [address]Eggkznxzwv (Bld) [Mass/Vol]14.1 g/uFQnogpl59.0-16.0[facility] HospitalComment on above:Performed By: #### 12035364, 98834365, 3786545, 9037727, 5171061 ####[address] [address]Zzogazbiewh (Bld) [#/Vol]1.3 E9/LNormal1.0-4.0[facility] Comment on above:Performed By: #### 72051195, 30827980, 4155866, 7629094, 3458752 ####[address] [address]Nularfoarvq/100 WBC (Bld)21.5 %Djfgig36.0-50.0[facility] Comment on above:Performed By: #### 90225190, 00593957, 9456626, 7087504, 6950600 ####[address] [address]ELL (RBC) [Entitic mass]31.1 joGngzja09.0-34.0[facility] Comment on above:Performed By: #### 29743602, 51570504, 7187490, 4580968, 0617034 ####[facility] [address] [place], [place] [address]KMOI (RBC) [Mass/Vol]34.5 g/yEMehavc46.4-36.0[facility] Comment on above:Performed By: #### 44014325, 61625589, 9196866, 1055955, 3435654 ####[place] [address] [place], [place] [address]MLA (RBC) [Entitic vol]90.1 lRMzxlza76.0-100.0[facility] Comment on above:Performed By: #### 81128280, 83556781, 9956825, 1032311, 7726274 ####[place] [address] [address]Isnugtwxu (Bld) [#/Vol]0.5 E9/LNormal0.2-1.0[facility] Comment on above:Performed By: #### 10794524, 86800080, 5638731, 5875194, 1496727 ####[address] [address]Mnptdepwirl (Bld) [#/Vol]3.8 E9/LNormal2.0-7.5FSalem Regional Medical Center Comment on above:Performed By: #### 72533354, 83469423, 4403232, 2016810, 8082551 ####[address] [address]Aaoxgxzlseq/100 WBC (Bld)64.6 %Yzjeer71.0-75.0[facility] Comment on above:Performed By: #### 70899195, 30942855, 9156046, 5215098, 1948664 ####[address] [address]Bkulrxkn mean volume (Bld) [Entitic vol]8.1 fLNormal6.4-10.8[facility] County HospitalComment on above:Performed By: #### 31806958, 26051820, 4956808, 5540229, 6846621 ####[address] [address]Dwriodgpt (Bld) [#/Vol]168.0 E9/XPdsnua677.0-500.0[facility] County HospitalComment on above:Performed By: #### 76360730, 21653026, 5538957, 1912528, 7432653 ####[place] [address] [address]OSS (Bld) [#/Vol]4.5 E12/LNormal4.3-5.9[facility] HospitalComment on above:Performed By: #### 63663229, 35229708, 2317218, 3893518, 7954570 ####[facility] [address] [place], [place] [address]JXO corrected for nucl RBC Auto (Bld) [#/Vol]5.9 E9/LNormal4.0-11.0[facility] HospitalComment on above:Performed By: #### 75714598, 44817639, 9484468, 5118887, 4879496 ####[facility] [address] [place], [place] [address]CRMCPRLHPOpyfklh By: SYSTEM SYSTEM on 76-79-6663Qsdhauhk 4.60 pg/mLLow10.10 - 27.10 pg/mLRemisol ChemComment on above:Interpretive Data: The 95% CI (Confidence Interval) PPV (Positive Predictive Value) for myocardial infarction in females is 38 pg/mL, in males 51 pg/mL. The results should be used in conjunction withclinical conditions of myocardial infarction. (Access High Sensitivity Troponin I Instructions For Use, Willy Kendrick, October 2017)Albumin [Mass/Vol]4.1 g/dLNormal3.3 - 5.0 gm/dLRemisol Chem Albumin/Globulin [Mass ratio]2.0 {ratio}Normal1.1 - 2.2Remisol ChemALP [Catalytic activity/Vol]75 [iU]/lVyixie37 - 98 Int._Unit/LRemisol ChemALT No additional P-5'-P [Catalytic activity/Vol]46 [iU]/dNormal6 - 46 Int._Unit/L Remisol ChemAnion gap [Moles/Vol]9 mmol/LNormal6 - 16 mEq/LRemisol ChemAST [Catalytic activity/Vol]28 [iU]/dNormal5 - 43 Int._Unit/LRemisol ChemBilirubin [Mass/Vol]1.6 mg/dLHigh0.0 - 1.1 mg/dLRemisol ChemBilirubin.direct [Mass/Vol]0.1 mg/dLNormal0.0 - 0.4 mg/dLRemisol ChemBilirubin.indirect [Mass or moles/Vol]1.5 mg/dLHigh0.1 - 0.9 mg/dLRemisol ChemCalcium [Mass/Vol]9.2 mg/dLNormal8.9 - 11.1 mg/dLRemisol ChemChloride [Moles/Vol]106 mmol/DDkdkfo828 - 111 mmol/LRemisol ChemCO2 [Moles/Vol]30 mmol/NZcuitj40 - 31 mmol/LRemisol ChemCreatinine [Mass/Vol]0.8 mg/dLNormal0.5 - 1.3 mg/dLRemisol NzvrdCMR51 mL/min/1.73 k6Xobsky >=59mL/min/1.73 t9Sbzmtfb ChemGlobulin (S) [Mass/Vol]2.1 g/dLNormal1.4 - 4.0 gm/dLRemisol ChemGlucose [Mass/Vol]153 mg/vEDharmf49 - 199 mg/dLRemisol Chem Potassium [Moles/Vol]3.7 mmol/LNormal3.5 - 5.3 mmol/LRemisol ChemProtein [Mass/Vol]6.2 g/dLNormal6.0 - 7.8 gm/dLRemisol ChemSodium [Moles/Vol]141 mmol/L Yfjyul012 - 145 mmol/LRemisol ChemTroponin3.70 pg/mLLow10.10 - 27.10 pg/mL Remisol ChemComment on above:Interpretive Data: The 95% CI (Confidence Interval) PPV (Positive Predictive Value) for myocardial infarction in females is 38 pg/mL, in males 51 pg/mL. The results should be used in conjunction withclinical conditions of myocardial infarction. (Access High Sensitivity Troponin I Instructions For Use, Willy [place], October 2017)Urea nitrogen [Mass/Vol]21 mg/dLNormal5 - 21 mg/dLRemisol ChemUrea nitrogen/Creatinine [Mass ratio]26 mg/sfVcyk91 - 20Remisol ChemConsent for Treatmenton 50-74-0636Iuyspmv for Treatment [id number]#1.00TIFFNormalPaulding County HospitalDischarge Instructionson 98-70-9901Abgnxxptu Instructions [id number]#1.00TIFFNoCeleste [facility] Clinical Summaryon 06-71-9781KK Clinical Summary [place] [id number] ED Clinical Summary Person Information Name: RAFI ROPER/[place] Age: 68 Years : 1955 Sex: Female Language: Nigerian PCP: Francisco Mckeon MD Marital Status: Visit [...] 07/29/2023 14:41:41 07/29/2023 14:41:41 07/29/2023 14:41:41 ADDRESS: [address] [place] [phone] PHYS DOC NOTES: MEDICAL INFORMATION: Prescriptions Given: [...] 351- 400 10u and 1unit per 15 carbs. insulin [...] Glucose Monitoring 14 Day System (Sensor)) Freestyle Libre2 Flash Glucose Monitoring 14 Day System (Sensor). Replace sensor every 14 days.. Refills: 11. Misc Prescription (Misc DME Prescription) BD ultra fine mini pen needles 31G X 3/16 Use 6 times a day to inject insulin Dx E10.8. PATIENT EDUCATION INFORMATION: Instructions: Hypertension, Adult Follow up: With: Address: When: Janes Rivera [address] [place] [address] [phone] [facility] (1) In 3 days 08/01/2023 Comments: Make sure to take your blood pressure twice a day as instructed and when you have symptoms and follow-up with Dr. Rivera. Return to the emergency room if you develop chest pain, dizziness, headache or any new symptoms. With: Address: When: Francisco Mckeon In 3 days DIAGNOSIS: 1:HypertensionNormalFisher Rooks Medical CenterED Note-Physicianon 27-87-6988XH Note-PhysicianBasic Information Time Seen: Alise Robin M.D. 07/29/2023 [...] past medical history of hypertension who presented tot emergency room with elevated blood pressure. The [...] and Complexity of Problems Differential Diagnosis: [] [facility] Data External documents reviewed: [] My EKG [...] Rivera In 3 days 08/01/2023 EDT [address] [place] [address]- [phone] Business (1) Additional Instructions: Make sure to [...] intraocular lens (07/23/2019), Cholec (more content not included)...[facility] HospitalComment on above:Result Comment: Electronically Signed By: lAise Robin M.D..elliot\Date and Time Signed: 07/28/2414:34 EDTED Patient Education Noteon 79-92-3794SE Patient Education NoteCardiovascular Hypertension, Adult High blood pressure (hypertension) is [...] these risk factorsare under your control, including: ? Smoking. ? [...] one 1? oz glass (more content not included)...[facility] Patient Summaryon 86-43-4233IN Patient Summary [address] [address] Patient Discharge Instructions Person Information Name: RAFI ROPER Age: 68 Years Arrival Date: 07/29/2023 11:47:41 Discharge Diagnosis: 1:Hypertension Primary Care Physician: Francisco Mckeon MD Provider Information Primary Provider: Alise Robin M.D. Advanced Panel Monitor:None The exam and treatment you received in the Emergency Department were for an urgent problem and are not intended as complete care. It is important that you follow up with a doctor, nurse practitioner,or physician?s assistant scientist for ongoing care. If your symptoms become worse or you do not improve as expected and you are unable to reach your usual health care provider, you should return to the Emergency Department. We are available 24 hours a day. RAFI ROPER has been given the following list of patient education materials, prescriptions and follow-up instructions: Follow-up Instructions: With: Address: When: Janes Rivera [address] [place] [phone] [facility] (1) In 3 days 08/01/2023 Comments: Make [...] opioids can be used to help relieve hmvhmuao-om-mbvbqd pain and are often prescribed following a [...] and have fewer risks and side effects. Optionsmay include: ? Pain relievers such as acetaminophen, [...] unused prescription opioids: Find your community drug take- back program or yourJdguanjiarmArbella Insurance Foundation mail-back program, or flush them down the toilet, following guidance from the Food and Drug Administration (www.fda.gov/Drugs/ResourcesForYou). ? Visit www.cdc.gov/drugo (more content not included)...[facility] HospitalHEMATOLOGYOrdered By: SYSTEM SYSTEM on 73-19-7905Mdjwvnyke/100 WBC (Bld)0.7 %Normal0.0 - 2.0 %Remisol HemeBasophils/Leukocytes Auto (Bld) [Pure # fraction]0.0 E9/LNormal0.0 - 0.2 E9/LRemisol HemeEosinophils (Bld) [#/Vol]0.2 E9/LNormal0.0 - 0.5 E9/LRemisol HemeEosinophils/100 WBC (Bld)4.1 %Normal0.0 - 8.0 %Remisol HemeErythrocyte distribution width (RBC) [Ratio]13.3 %Ldxiuk09.9 - 14.2 %Remisol HemeHematocrit (Bld) [Volume fraction]40.9 %Twgrmu98.0 - 46.0 % Remisol HemeHemoglobin (Bld) [Mass/Vol]14.1 g/mGIhjkkv04.0 - 16.0 gm/dLRemisol HemeLymphocytes (Bld) [#/Vol]1.3 E9/LNormal1.0 - 4.0 E9/LRemisol Heme Lymphocytes/100 WBC (Bld)21.5 %Qyyziu93.0 - 50.0 %Remisol HemeMCH (RBC) [Entitic mass]31.1 mbRgswgo44.0 - 34.0 pgRemisol HemeMCHC (RBC) [Mass/Vol]34.5 g/dL Xysqvc53.4 - 36.0 gm/dLRemisol HemeMCV (RBC) [Entitic vol]90.1 zOOvqxbs54.0 - 100.0 fLRemisol HemeMonocytes (Bld) [#/Vol]0.5 E9/LNormal0.2 - 1.0 E9/LRemisol HemeMonocytes/100 WBC (Bld)9.1 %Normal4.0 - 14.0 %Remisol HemeNeutrophils (Bld) [#/Vol]3.8 E9/LNormal2.0 - 7.5 E9/LRemisol HemeNeutrophils/100 WBC (Bld)64.6 % Owpiow40.0 - 75.0 %Remisol HemePlatelet mean volume (Bld) [Entitic vol]8.1 fL Normal6.4 - 10.8 fLRemisol HemePlatelets (Bld) [#/Vol]168.0 E9/WPqqscv200.0 - 500.0 E9/LRemisol HemeRBC (Bld) [#/Vol]4.5 E12/LNormal4.3 - 5.9 E12/LRemisol HemeWBC corrected for nucl RBC Auto (Bld) [#/Vol]5.9 E9/LNormal4.0 - 11.0 E9/L Remisol HemeHep Func Panelon 43-06-9727Mvjagvx [Mass/Vol]4.1 g/dLNormal3.3-5.0 [facility] HospitalComment on above:Performed By: #### 18140037, 52694216, 1024060, 5669874, 9030097 ####[facility] [address] [place], [place] [address]Dnivzos/Globulin (S) [Mass conc ratio] 2.6Sotzcm7.1-2.2FSalem Regional Medical CenterComment on above:Performed By: #### 45489807, 30869495, 3912483, 8411150, 0673688 ####[facility] [address] hunger[facility] hospitaljayPIN[place], [place] [address]RBY [Catalytic activity/Vol]75 Int._Unit/POyjdwt62-28TcqcydPaulding County HospitalComment on above:Performed By: #### 81613103, 51000003, 9179170, 6851974, 1357501 ####[address] [address]XRE No additional P-5'-P [Catalytic activity/Vol]46 Int._Unit/LNormal6-46[facility] Comment on above:Performed By: #### 73432569, 71641783, 4703796, 1903396, 1557822 ####[address] [address]IJF [Catalytic activity/Vol]28 Int._Unit/LNormal5-43[facility] HospitalComment on above:Performed By: #### 88260385, 60274097, 8615129, 0235141, 0667094 ####[address] [address]Yxepehtee [Mass/Vol]1.6 mg/dLHigh0.0-1.1FSalem Regional Medical CenterComment on above:Performed By: #### 29130484, 21340917, 0832962, 5110177, 7624195 ####[address] [address] Bilirubin.direct [Mass/Vol]0.1 mg/dLNormal0.0-0.4FSalem Regional Medical Center Comment on above:Performed By: #### 11968667, 42080342, 1926634, 4882938, 0033894 ####[address] [address]Jsbmccewp.indirect [Mass or moles/Vol]1.5 mg/dLHigh0.1-0.9[facility] HospitalComment on above:Performed By: #### 58092750, 66817604, 0076412, 8453146, 7620467 ####[address] [address]Yybcwepy (S) [Mass/Vol]2.1 g/dLNormal1.4-4.0[facility] HospitalComment on above:Performed By: #### 48657447, 59483640, 9527619, 1027101, 1462729 ####[facility] [address] [place], [place] [address]Crlcxap [Mass/Vol]6.2 g/dLNormal6.0-7.8[facility] HospitalComment on above:Performed By: #### 15453090, 47878209, 5708652, 0827070, 6485537 ####[facility] [address] [place], [place] [address]Hbrtfuwp 0 Hr.on 17-99-8986Pwjlluvd4.70 pg/mLLow10.10-27.10[facility] County HospitalComment on above:Result Comment: The 95% CI (Confidence Interval) PPV (Positive Predictive Value) for myocardial infarction in females is 38 pg/mL, in males 51 pg/mL. The results should be used in conjunction with cli nical conditions of myocardial infarction. (Access High Sensitivity Troponin I Instructions For Use, Rescale, October 2017)Performed By: #### 30729259, 02783877, 5981462, 2300508, 4931615 ####[facility] [address] [place] [address] Troponin 1 Hr.on 73-75-7890Kokvrrom9.60 pg/mLLow10.10-27.10[facility] HospitalComment on above:Result Comment: The 95% CI (Confidence Interval) PPV (Positive Predictive Value) for myocardial infarction in females is 38 pg/mL, in males 51 pg/mL. The results should be used in conjunction with clinical conditions of myocardial infarction. (Access High Sensitivity Troponin I Instructions For Use, Rescale, October 2017)Performed By: #### [id number] ####[facility] [address] [place], [place] [address]dJAKtz 19-50-6312rZOU98 mL/min/1.73 x1Vjwfet>=59Paul[facility] County HospitalComment on above:Order Comment: Order added by Discern Expert.Performed By: #### 80268361, 20885242, 3579734, 9640736, 1151614 ####[facility] [address] [place], [place] [address]Luiatni for Treatmenton 51-17-4100Vadgoej for Treatment [id number]#1.00TIFLouis Stokes Cleveland VA Medical CenterECG 12-Leadon 87-66-0531HKP 12-Lead [id number]#1.00TIFLouis Stokes Cleveland VA Medical CenterHeart and Vascular Office/Clinic Noteon 71-77-7370Hgqqv and Vascular Office/Clinic NoteChief Complaint here to establish care - HTN History of Present Illness The patient is a very pleasant 68-year-old female who presents for establishment. She does have a past medical history of diabetes mellitus type II with insulin requirements, hypertension, dyslipidemia, coronary artery disease with history of coronary artery bypass grafting surgery in 2020 at [facility]. At that time, she presented with [...] dizziness or lightheadedness, palpitations, syncope or presyncope. Shestates compliance with current treatment plan. Denies any [...] I am going to increase metoprolol succinate to100 mg daily. Losartan schedule will be changed to 50 mg twice daily as per patient's request. The patient was suggested to stop by the clinic in about 2 to 3 weeks to recheck her blood pressure. LDL appears to be suboptimally controlled, therefore I will take a liberty to start ezetimibe 10 mgnightly. Fasting lipid profile to be rechecked in about 3 to 4 weeks. In the setting of underlying diabetes and coronary artery disease, the patient would benefit from SGLT2 inhibitor, therefore I will start dapagliflozin 10 mg daily. We will try to obtain CABG report. Follow-up in 6 months, earlier if clinically indicated 1. 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 Dyslipidemia [...] Once Freestyle Lokesh F (more content not included)...[facility] HospitalComment on above:Result Comment: Electronically Signed By: Miguel SHANNON, Janes Hubbard\.br\Date and Time Signed: 07/27/23 11:07 EDTPhysician Orderon [id number] [id number]#1.00TIFFNormal [facility] County HospitalAmbulatory Visit Summaryon 03-22-0840Vfwyyuinhw Visit Summary RAFI ROPER :1955 Visit Date:07/16/2023 [...] Follow-Up Appointments Sunday 2:15 PM EDT With: Miguel SHANNON, Janes Hubbard Where: [facility] [place] Sunday 9:15 AM EDT With: Mervin SAHNNON, Francisco Terrell Where: [facility] Medicine Office/Clinic Noteon 96-55-4786Rvfhyh Medicine Office/Clinic NoteI Staff Rafi is a 68 year old [...] labs elevated has she been sick, and she'dlike to know what she can do if [...] day(s), # 6 tab(s), Refills(s) 0, [id number], 154.4, cm, 07/16/23 8:58:00 EDT, Height/Length Dosing, 62.8, kg, 07/16/23 8:58:00 EDT, Weight Dosing methylPREDNISolone, = 1 packet(s), Oral, As Directed, as directed on package labeling, X 6 day(s), # 21 tab(s), Refills(s) 0, [id number], 154.4, cm, 07/16/23 8:58:00 EDT, Height/Length [...] 1 tab(s), Oral, Ada (more content not included)...[facility] HospitalComment on above:Result Comment: Electronically Signed By: Mervin SHANNON, Francisco Rudd.br\Date and Time Signed: 07/16/23 09:18 EDTPatient Educationon 64-39-1868Nhpxvxg EducationNutrition BMI for Adults What is BMI? Body mass index (BMI) is a number that is calculated from a person's weight and height. BMI can help estimate how much of a person's weight is composed of fat. BMI does not measure body fat directly.Rather, it is an alternative to procedures that [...] your height. Both height and weight are measured,and the BMI is calculated from those numbers. This can be done either in [place] ([place] or metric measurements. Note that charts and online BMI calculators are available to help you find your BMI quickly and easily without having to do these calculations yourself. To calculate your BMI in [place] ([place] measurements: 1. Measure your weight in [...] meters squared number. In this example: 70 ?3.1 = 22.6. This is your BMI. What [...] for Disease Control and Prevention: www.cdc.gov ? [place] [employer]: www.heart.org ? National Heart, Lung, and Blood [place]: www.nhlbi.nih.gov Summary ? Body mass index (BMI) is a number that is calculated from a person's weight and height. ? BMI may help estimate how much of a person's weight is composed of fat. BMI can help identify those who may be at higher risk for certain medical problems. ? BMI can be measured using Nigerian measurements or metric measurements. ? BMI charts are used to identify whether you are underweight, normal weight, overweight, or obese. This information is not intended to replace advice given to you by your health care provider. Make sure you discuss any questions you have with your health care provider. Document Revised: 11/26/2019 Document Reviewed: 10/03/2019 [employer]First Messaging Patient Education ? 2022 [employer] Auth for Release of Medical Recordson [id number] for Release of Medical [id number]#1.00TIFFNoMercy Health Springfield Regional Medical CenterAmbulatory Visit Summaryon 46-17-4149Pxkcmxnphm Visit Summary RAFI ROPER :1955 Visit Date:07/03/2023 Ambulatory Visit Instructions Your Diagnosis HTN (hypertension) Type 2 diabetes mellitus with hyperlipidemia Diabetic neuropathy DM type 2 causing vascular disease Colon cancer screening Paroxysmal atrial fibrillation Hyperlipidemia, unspecified BMI 26.0-26.9,adult Overweight Nonsmoker Your Care Team Attending Physician - Francisco Mckeon MD Primary Care Physician - Francisco Mckeon MD This Is Your Medications List Misc Prescription (UiTVe Flash Glucose Monitoring 14 Day System (Sensor)) [...] EDT With: Francisco Mckeon MD Where: [facility] w/ Auto Diffon 94-16-6963Gofrmmtvp/100 WBC (Bld)0.9 %Normal 0.0-2.0[facility] HospitalComment on above:Performed By: #### 5125056, 65718730, 096318710, 3720191, 6013471 #### [facility] [address] [place] [address] 166[address]Jdtoeldra/Leukocytes Auto (Bld) [Pure # fraction]0.0 E9/LNormal 0.0-0.2FSalem Regional Medical CenterComment on above:Performed By: #### 3250956, 86744864, 494383225, 6901322, 7366340 #### [facility] [address], [place] [address]Fxfktitetib (Bld) [#/Vol]0.2 E9/LNormal0.0-0.5FSalem Regional Medical CenterComment on above:Performed By: #### 8665293, 51697625, 735264310, 9865906, 0987496 #### [facility] [address], [place] [address]Fltjubxgwdk/100 WBC (Bld)4.8 %Normal0.0-8.0[facility] HospitalComment on above:Performed By: #### 9111239, 99647883, 696187783, 0252724, 5296338 #### [facility] [address], [place] [address]Clhajwrcjng distribution width (RBC) [Ratio]14.1 %Normal 10.9-14.2FSalem Regional Medical CenterComment on above:Performed By: #### 1769509, 19837521, 679698922, 6811772, 7988910 #### [facility] [address], [place] [address]Quoqbfffqp (Bld) [Volume fraction]40.0 %Cnibhv03.0-46.0[facility] HospitalComment on above:Performed By: #### 4215340, 39216385, 278234388, 6302196, 4578685 #### [facility] [address], [place] [address]Weefprifsl (Bld) [Mass/Vol]13.3 g/rUGasjnx25.0-16.0[facility] HospitalComment on above:Performed By: #### 3142423, 83855061, 057401914, 7778970, 8412380 #### [facility] [address] [place] [address]Ojgjikgrlau (Bld) [#/Vol]1.1 E9/LNormal1.0-4.0[facility] HospitalComment on above:Performed By: #### 5554565, 87045453, 320245447, 4651490, 3387657 #### [facility] [address] [place] [address]Lnmxnljrrrx/100 WBC (Bld)20.9 %Tbmoby21.0-50.0[facility] HospitalComment on above:Performed By: #### 5969375, 54830590, 127035870, 5429745, 5100566 #### [facility] [address] [place] [address]AWH (RBC) [Entitic mass]30.2 omDfbfkz99.0-34.0[facility] HospitalComment on above:Performed By: #### 3192044, 99813116, 829428545, 1699208, 6913771 #### [facility] [address] [place] [address] 044[address]ZRKA (RBC) [Mass/Vol]33.3 g/sDXonxgp77.4-36.0[facility] HospitalComment on above:Performed By: #### 5611526, 93260080, 521237549, 3546739, 9310905 #### [facility] [address] [place] [address] 72768IYI (RBC) [Entitic vol]90.7 mARklsid85.0-100.0[facility] HospitalComment on above:Performed By: #### 6145927, 21566888, 178310911, 4529755, 3379869 #### [facility] [address] [place] [address] 96[address]Enwjrzwud (Bld) [#/Vol]0.4 E9/LNormal0.2-1.0[facility] HospitalComment on above:Performed By: #### 5599041, 81990499, 141137982, 9547382, 8292998 #### [facility] [address], [place] [address]Narptgwwvkq (Bld) [#/Vol]3.3 E9/LNormal2.0-7.5FSalem Regional Medical CenterComment on above:Performed By: #### 8317844, 95031651, 531685206, 3913756, 5957066 #### [facility] [address], [place] [address]Nrtrbddhabv/100 WBC (Bld)65.7 %Ximgvv65.0-75.0[facility] HospitalComment on above:Performed By: #### 1661465, 77372929, 380427960, 9309689, 2263695 #### [facility] [address] [place] [address] 20593Dorzvawi310.0 E9/OXlrftl805.0-500.0[facility] Comment on above:Performed By: #### 4001376, 97916664, 665817992, 3661599, 7980706 #### [facility] [address] [place] [address]44[address]Nsptsrtn mean volume (Bld) [Entitic vol]8.5 fLNormal6.4-10.8 [facility] HospitalComment on above:Performed By: #### 8948802, 66292096, 337984179, 9864226, 1013941 #### [facility] [address] [place] [address]28[address]UNL (Bld) [#/Vol]4.4 E12/LNormal4.3-5.9[facility] HospitalComment on above:Performed By: #### 1107063, 25471462, 952634829, 4116228, 9265674 #### [facility] [address] [place] [address] 170[address]BZW corrected for nucl RBC Auto (Bld) [#/Vol]5.1 E9/LNormal 4.0-11.0[facility] HospitalComment on above:Performed By: #### 0400201, 31291580, 289744846, 9973787, 5023327 #### [facility] [address] [place], [place] [address]mitul Abebe [place], [place] [address]FMLSTYQCFPcqqpnr By: SYSTEM SYSTEM on 25-19-3439Imwhnlf [Mass/Vol]4.0 g/dLNormal3.3 - 5.0 gm/dLRemisol ChemAlbumin DL <= 20 mg/L (U) [Mass/Vol]1.2 mg/dLNormal0.0 - 1.9 mg/dLRemisol ChemAlbumin/Globulin [Mass ratio]1.9 {ratio}Normal1.1 - 2.2Remisol ChemALP [Catalytic activity/Vol]71 [iU]/sNmewpx08 - 98 Int._Unit/LRemisol ChemALT No additional P-5'-P [Catalytic activity/Vol]65 [iU]/dHigh6 - 46 Int._Unit/LRemisol ChemAnion gap [Moles/Vol]11 mmol/LNormal6 - 16 mEq/LRemisol ChemAST [Catalytic activity/Vol]43 [iU]/dNormal5 - 43 Int._Unit/LRemisol ChemBilirubin [Mass/Vol]1.9 mg/dLHigh0.0 - 1.1 mg/dL Remisol ChemCalcium [Mass/Vol]9.8 mg/dLNormal8.9 - 11.1 mg/dLRemisol Chem Chloride [Moles/Vol]105 mmol/ZIgbnms542 - 111 mmol/LRemisol ChemCholesterol [Mass/Vol]152 mg/uHDjauzd122 - 200 mg/dLRemisol ChemCholesterol in HDL [Mass/Vol]50 mg/dLInvalid Interpretation CodeRemisol ChemComment on above:Result Comment: '>= 60 LOW RISK' '<= 40 HIGH RISK'Cholesterol in LDL [Mass/Vol]84 mg/dLNormal<=129mg/dLRemisol ChemCholesterol in VLDL [Mass/Vol]25 mg/dLNormal7 - 40 mg/dLRemisol ChemCO2 [Moles/Vol]30 mmol/IFerdnj83 - 31 mmol/LRemisol ChemCreatinine [Mass/Vol]0.8 mg/dLNormal0.5 - 1.3 mg/dLRemisol NrwkcVTZ33 mL/min/1.73 e4Uobtsm>=59mL/min/1.73 t8Dzhngmw ChemGlobulin (S) [Mass/Vol]2.1 g/dLNormal1.4 - 4.0 gm/dLRemisol Chem Glucose [Mass/Vol]140 mg/bEQjcyxz15 - 199 mg/dLRemisol ChemPotassium [Moles/Vol] 4.0 mmol/LNormal3.5 - 5.3 mmol/LRemisol ChemProtein [Mass/Vol]6.1 g/dLNormal6.0 - 7.8 gm/dLRemisol ChemProtein/Creatinine (U) [Ratio]7.70 mg/gm CrNormal0.00 - 200.00 mg/gm CrRemisol ChemSodium [Moles/Vol]142 mmol/JCjppyn909 - 145 mmol/L Remisol ChemTriglyceride [Mass/Vol]127 mg/dLNormal<=149mg/dLRemisol ChemU Uvxwerpigc736.9 mg/dLInvalid Interpretation CodeRemisol ChemUr Total Jizzdon29.0 mg/dLInvalid Interpretation CodeRemisol ChemUrea nitrogen [Mass/Vol]31 mg/dL High5 - 21 mg/dLRemisol ChemUrea nitrogen/Creatinine [Mass ratio]39 mg/baRvmv99 - 20Remisol ChemCHEMISTRYOrdered By: Tea Lozano on 06-11-8698NcR4g (Bld) [Mass fraction]7.0 %High<=5.9%[facility] ChemAutoSSCMPon 46-73-3165Skfadnk [Mass/Vol]4.0 g/dLNormal3.3-5.0[facility] Hospitaler [facility] CenterComment on above:Performed By: #### 7623748, 08437598, 102432481, 2735758, 6185712 #### [facility] [address] [place] [address]18[address]Wcmrzfz/Globulin (S) [Mass conc ratio]1.8Geiytz5.1-2.2[facility] CenterComment on above:Performed By: #### 3078718, 08609428, 681899594, 2553376, 1326709 #### [facility] [address] [place] [address] 40949PWC [Catalytic activity/Vol]71 Int._Unit/GQwwsrk01-65WoahfqPaulding County HospitalComment on above:Performed By: #### 6013939, 45573826, 317357566, 8093979, 3485000 #### [facility] [address] [place] [address]85[address]QPY No additional P-5'-P [Catalytic activity/Vol]65 Int._Unit/L High6-46Paul[facility] County HospitalComment on above:Performed By: #### 1067693, 80512215, 817171481, 6320853, 7732250 #### [facility] [address] [place] [address] 163[address]Aiwhn gap [Moles/Vol]11 mmol/LNormal6-16[facility] HospitalComment on above:Performed By: #### 4125809, 99923890, 181567344, 2671830, 6387006 #### [facility] [address] [place] [address] 678[address]HNP [Catalytic activity/Vol]43 Int._Unit/LNormal5-43[facility] HospitalComment on above:Performed By: #### 8373407, 78281055, 226851432, 9475344, 6451461 #### [facility] [address] [place] [address] 58[address]Yakadismd [Mass/Vol]1.9 mg/dLHigh0.0-1.1FSalem Regional Medical CenterComment on above:Performed By: #### 2220538, 17062667, 670757732, 2958807, 8336838 #### [facility] [address] [place] [address] 698[address]Tzedhbm [Mass/Vol]9.8 mg/dLNormal8.9-11.1FSalem Regional Medical CenterComment on above:Performed By: #### 2890059, 99884600, 196597909, 8566290, 0455196 #### [facility] [address], [place] [address]Szlovvbw [Moles/Vol]105 mmol/AFdlmif450-036SntbjzPaulding County HospitalComment on above:Performed By: #### 1438483, 87912394, 366722325, 1902230, 1757937 #### [facility] [address], [place] [address]EH8 [Moles/Vol]30 mmol/THkgmhw53-05ShgvkvPaulding County Hospital Comment on above:Performed By: #### 3026507, 53979281, 739018809, 3564798, 9861128 #### [facility] [address] [place] [address] 996[address]Ttfarzugje [Mass/Vol]0.8 mg/dLNormal0.5-1.3FSalem Regional Medical CenterComment on above:Performed By: #### 8088463, 58912152, 848501028, 6352121, 4284741 #### [facility] [address] [place] [address] 22969Gmteqtjz (S) [Mass/Vol]2.1 g/dLNormal1.4-4.0[facility] HospitalComment on above:Performed By: #### 6206522, 09604652, 494994322, 1884961, 1507766 #### [facility] [address] [place] [address] 724[address]Dwhcjhp [Mass/Vol]140 mg/oYEhfbvc47-366CwmcdtPaulding County HospitalComment on above:Performed By: #### 1083256, 45029839, 173357791, 7769168, 8991385 #### [facility] [address] [place] [address] 530[address]Kbahucipx [Moles/Vol]4.0 mmol/LNormal3.5-5.3FSalem Regional Medical CenterComment on above:Performed By: #### 9164758, 53744157, 494843241, 4029397, 6657117 #### [facility] [address], [place] [address]Mckykzq [Mass/Vol]6.1 g/dLNormal6.0-7.8[facility] HospitalComment on above:Performed By: #### 0408613, 84910515, 426317566, 9058206, 4822538 #### [facility] [address], [place] [address]Auylcx [Moles/Vol]142 mmol/CTtqqtp581-559CewcibPaulding County HospitalComment on above:Performed By: #### 7666534, 08393491, 111113811, 7102170, 7960531 #### [facility] [address], [place] [address]Meyz nitrogen [Mass/Vol]31 mg/dLHigh5-21Paul[facility] HospitalComment on above:Performed By: #### 7290251, 63012517, 103225715, 9822271, 9038557 #### [facility] [address], [place] [address]Rzyi nitrogen/Creatinine [Mass ratio]39 No SwusgOipc66-14YfwskaPaulding County HospitalComment on above:Performed By: #### 9585010, 72065069, 438749371, 3058622, 2598946 #### [facility] [address], [place] [address]Mjugrh Medicine Office/Clinic Noteon 30-59-0634Mdaoxo Medicine Office/Clinic NoteI Staff Rafi is a 68 year old [...] CBC w/ Auto Diff Comprehensive Metabolic Panel [facility] Internal Ambulatory Referral [facility] Internal Ambulatory Referral HgbA1c Lipid Panel Microalbumin Level Urine U Protein/Creat Ratio 2. Type 2 diabetes mellitus with hyperlipidemia (E11.69: Type 2 diabetes mellitus with other specified complication) - Will check labs. - No issues. - Doing well. Ordered: CBC w/ Auto Diff Comprehensive Metabolic Panel [facility] Internal Ambulatory Referral [facility] Internal Ambulatory Referral HgbA1c Lipid Panel Microalbumin Level Urine U Protein/Creat Ratio 3. Diabetic neuropathy (E11.40: Type 2 diabetes mellitus with diabetic neuropathy, unspecified) - Stable. - No change Ordered: CBC w/ Auto Diff Comprehensive Metabolic Panel [facility] Internal Ambulatory Referral [facility] Internal Ambulatory Referral HgbA1c Lipid Panel Microalbumin Level Urine U Protein/Creat Ratio 4. 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 Ordered: CBC w/ Auto Diff Comprehensive Metabolic Panel [facility] Internal Ambulatory Referral [facility] Internal Ambulatory Referral HgbA1c Lipid Panel Microalbumin Level Urine U Protein/Creat Ratio 5. Colon cancer screening (Z12.11: Encounter for screening for malignant neoplasm of colon) - Will refer for colonoscopy Ordered: CBC w/ Auto Diff Comprehensive Metabolic Panel [facility] Internal Ambulatory Referral [facility] Internal Ambulatory Referral HgbA1c Lipid Panel Microalbumin [...] # 90 tab(s), Refills(s) 0, Pharmacy: [facility]/pharmacy #[id number], 154.4, cm, 07/03/23 10:36:00 EDT, Height/Length Dosing, 63.1, kg, 07/03/23 10:36:00 EDT, Weight Dosing Misc Prescription, Freestyle Lokesh Flash Glucose Monitoring 14 Day System (Sensor), See Instructions, 6 EA, 11, Freestyle Lokesh 2 Flash Glucose Monitoring 14 Day System (Sensor). Replace sensor every14 days., [facility]/pharmacy #[id number], Supply, 154.4, cm, 07/03/23 10:36:00 EDT... [...] 3 refills Freestyle Lindsay (more content not included)...[facility] Comment on above:Result Comment: Electronically Signed By: Mervin SHANNON, Francisco Rudd.br\Date and Time Signed: 04/16/24 10:57 EDTHEMATOLOGYOrdered By: SYSTEM SYSTEM on 73-89-3975Ykwgyybrx/100 WBC (Bld)0.9 %Normal0.0 - 2.0 %Remisol Heme Basophils/Leukocytes Auto (Bld) [Pure # fraction]0.0 E9/LNormal0.0 - 0.2 E9/L Remisol HemeEosinophils (Bld) [#/Vol]0.2 E9/LNormal0.0 - 0.5 E9/LRemisol Heme Eosinophils/100 WBC (Bld)4.8 %Normal0.0 - 8.0 %Remisol HemeErythrocyte distribution width (RBC) [Ratio]14.1 %Iejjcd76.9 - 14.2 %Remisol HemeHematocrit (Bld) [Volume fraction]40.0 %Dozozh01.0 - 46.0 %Remisol HemeHemoglobin (Bld) [Mass/Vol]13.3 g/eDCzfqop60.0 - 16.0 gm/dLRemisol HemeLymphocytes (Bld) [#/Vol] 1.1 E9/LNormal1.0 - 4.0 E9/LRemisol HemeLymphocytes/100 WBC (Bld)20.9 %Normal 14.0 - 50.0 %Remisol HemeMCH (RBC) [Entitic mass]30.2 rsGyyosh99.0 - 34.0 pg Remisol HemeMCHC (RBC) [Mass/Vol]33.3 g/cZLxfgtv61.4 - 36.0 gm/dLRemisol HemeMCV (RBC) [Entitic vol]90.7 tDPwbzyj13.0 - 100.0 fLRemisol HemeMonocytes (Bld) [#/Vol]0.4 E9/LNormal0.2 - 1.0 E9/LRemisol HemeMonocytes/100 WBC (Bld)7.7 % Normal4.0 - 14.0 %Remisol HemeNeutrophils (Bld) [#/Vol]3.3 E9/LNormal2.0 - 7.5 E9/LRemisol HemeNeutrophils/100 WBC (Bld)65.7 %Tzogjc52.0 - 75.0 %Remisol Heme Pswgzqho830.0 E9/OVoqfgg327.0 - 500.0 E9/LRemisol HemePlatelet mean volume (Bld) [Entitic vol]8.5 fLNormal6.4 - 10.8 fLRemisol HemeRBC (Bld) [#/Vol]4.4 E12/L Normal4.3 - 5.9 E12/LRemisol HemeWBC corrected for nucl RBC Auto (Bld) [#/Vol] 5.1 E9/LNormal4.0 - 11.0 E9/LRemisol AwyqHjlU8iei 34-32-7459AtY5n (Bld) [Mass fraction]7.0 %High<=5.9[facility] HospitalComment on above:Performed By: #### 2105697, 26822411, 276402336, 2135504, 6819900 ####[facility] [address] [place], [place] [address]Fccwz Panelon 07-03-2023 Cholesterol [Mass/Vol]152 mg/tMSrbitn052-145HtutphPaulding County HospitalComment on above:Performed By: #### 0622387, 29488902, 208031572, 6308003, 1920235 #### [facility] [address] [place] [place], [place] [address]Kxjumzopwfo in HDL [Mass/Vol]50 mg/dLInvalid Interpretation CodePaulding County HospitalComment on above:Result Comment: '>= 60 LOW RISK' '<= 40 HIGH RISK'Performed By: #### 3017728, 73151616, 722843076, 7004749, 9093796 #### [facility] [address] [place], [place] [address]Syqaqgdmmvl in LDL [Mass/Vol]84 mg/dLNormal<=129Paul[facility] County HospitalComment on above:Performed By: #### 3435665, 16933612, 321796466, 9231015, 7679572 #### [facility] [address] [place], [place] [address]Ofpjuctodcp in VLDL [Mass/Vol]25 mg/dLNormal7-40Paul[facility] HospitalComment on above:Performed By: #### 1867519, 43444234, 410372472, 5236469, 6076318 #### [facility] [address], [place] [address]Mukgycspqntg [Mass/Vol]127 mg/dLNormal<=149Paul[facility] HospitalComment on above:Performed By: #### 8815276, 94917417, 969638347, 4682968, 5480866 #### [facility] [address], [place] [address]Jwryspcjr Referralon 69-51-3133Amcphvboo Referral [id number]#1.00TIFFNormalPaulding County HospitalU Microalbon 62-99-3770Iskgmqw DL <= 20 mg/L (U) [Mass/Vol]1.2 mg/dLNormal 0.0-1.9[facility] HospitalComment on above:Performed By: #### [id number], 19206896 ####[facility] [address] [place], [place] [address]E Protein/Creat Ratioon 96-71-4708Jsdklbj/Creatinine (U) [Ratio]7.70 mg/gm CrNormal.00-200.00[facility] HospitalComment on above: Performed By: #### [id number], 10161326 ####[facility] [address] [place], [place] [address]P Ctkfnjilfd278.9 mg/dLInvalid Interpretation [facility] HospitalComment on above:Performed By: #### [id number], 21356937 ####[facility] [address] [place], [place] [address]Ig Total Tjzbaxa19.0 mg/dLInvalid Interpretation [facility] HospitalComment on above:Performed By: #### [id number], 69980645 ####[facility] [address] [place], [place] [address]qMXW on 19-43-9290nHJQ07 mL/min/1.73 u5Qujfnk>=59Paul[facility] County HospitalComment on above:Order Comment: Order added by Discern Expert.Performed By: #### 4215558, 37659789, 204923734, 1325013, 4225958 #### [facility] [address] [place] [address]Vughobnpsu Visit Summaryon 66-54-8744Nmdvdqmptl Visit Summary RAFI ROPER :1955 Visit Date:04/23/2023 Ambulatory Visit Instructions Your Care Team Attending Physician - Francisco Mckeon MD Primary Care Physician - Francisco Mckeon MD This Is Your Medications List Misc Prescription (Freestyle Lokesh 2 Sensor) Misc Prescription (Freestyle Lokesh 3 Flash Glucose Monitoring 14 Day System (Datil)) Misc Prescription (Freestyle Lokesh 3 Flash Glucose [...] EDT With: Francisco Mckeon MD [facility]/Clinic Noteon 45-27-5930Qpzpws Medicine Office/Clinic NoteHPI Staff Rafi is a 68 year old [...] muscle but wants to be sure it's notsomething more serious History of Present Illness - [...] for constipation, # 180 cap(s), Refills(s) 1, Pharmacy:[facility]/pharmacy #[id number], 154.5, cm, 09/11/22 10:05:00 EDT, Height/Length Dosing, 63, kg, 09/11/22 10:05:00 EDT, Weight Dosing semaglutide, See Instructions, INJECT 0.25 MG SUBCUTANEOUSLY EVERY WEEK, # 3 Unspecified/Unknown, Refills(s) 0, Pharmacy: [facility] STORE [id number], 154.4, cm, 01/25/23 9:05:00 EST, Height/Length Dosing, 63.8,kg, 02/13/23 13:34:00 EST, Weight Dosing Follow-up No [...] 3 Flash Glucose Monitoring 14 Day System (Datil), See Instructions Freestyle Lokesh 3 Flash Glucose [...] virus vaccine, inactivated 12/20/2021 Recorded SARS-CoV-2 (COVID-19) mRNAMUL.ORD![id number] 11/28/2021 Recorded 2022-06-29: TPV65 influenza virus vaccine, inactivated 11/23/2021 Recorded SARS-CoV-2 (COVID-19) mRNA-1273 vaccine 06/29/2021 Recorded SARS-CoV-2 (COVID-19) mRNA-1273 vaccine 01/08/2021 Recorded 2022-06-29: TPV60 influenza virus vaccine, inactivated 12/04/2020 (more content not included)... [facility] HospitalComment on above:Result Comment: Electronically Signed By: Mervin SHANNON, Francisco Rudd.br\Date and Time Signed: 04/23/23 09:46 EST Patient Educationon 70-35-5576Tvnbyhx EducationCardiovascular Atherosclerosis Atherosclerosis is when plaque builds up [...] or peripheral artery (jaycee (more content not included)...[facility] HospitalAmbulatory Visit Summaryon 28-02-0855Jhbmqfxndv Visit Summary JACQUELIN RAFI Louise :1955 Visit Date:04/03/2023 Ambulatory Visit Instructions Your [...] With: Mervin SHANNON, Francisco Terrell Where: [facility] Medicine Office/Clinic Noteon 32-99-1551Bsuabr Medicine Office/Clinic NoteHPI Staff Rafi is a 68 year old [...] 3 Flash Glucose Monitoring 14 Day System (Datil), See Instructions, 1 EA, 0, Freestyle Lokesh Flash Glucose Monitoring 14 Day System (Datil), [facility][id number], Supply, 154.4, cm, 04/03/23 10:00:00 [...] 3 Flash Glucose Monitoring 14 Day System (Datil), See Instructions, 1 EA, 0, Freestyle Lokesh Flash Glucose Monitoring 14 Day System (Datil), [id number], Supply, 154.4, cm, 04/03/23 10:00:00 [...] 3 Flash Glucose Monitoring 14 Day System (Datil), See Instructions, 1 EA, 0, Freestyle Lokesh Flash Glucose Monitoring 14 Day System (Datil), [id number], Supply, 154.4, cm, 04/03/23 10:00:00 [...] 3 Flash Glucose Monitoring 14 Day System (Datil), See Instructions, 1 EA, 0, Freestyle Lokesh Flash Glucose Monitoring 14 Day System (Datil), [facility]/pharmacy #[id number], Supply, 154.4, cm, 04/03/23 10:00:00 EST, Height/Length Dosing, 64.3, kg... Misc Prescription, Freestyle Lokesh 3 Flash Glucose Monitoring 14 Day System (Sensor), See Instructions, 2 EA, 0, F (more content not included)...Normal [facility] HospitalComment on above:Result Comment: Electronically Signed By: Mervin SHANNON, Francisco Terrell\.br\Date and Time Signed: 04/03/23 11:07 EST Ambulatory Visit Summaryon 22-67-0289Dttbkybkgk Visit Summary RAFI ROPER :1955 Visit Date:03/01/2023 [...] EST With: Francisco Mckeon MD Where: [facility] :1955 Visit Date:03/01/2023 [...] EST With: Mervin SHANNON, Francisco Terrell Where: [facility] Medicine [facility] Medicine Office/Clinic Noteon [id number] Medicine Office/Clinic NoteHPI Staff Rafi is a 68 year old [...] bedtime), # 90 cap(s), Refills(s) 3, [id number] 154.4, cm, 03/01/23 15:22:00 EST, Height/Length Dosing, 62.7, kg, 03/01/23 15:22:00 EST, Weight Dosing gabapentin, 300 mg = 1 cap(s), Oral, Once a day (at bedtime), # 90 cap(s), Refills(s) 3, [id number], 154.5, cm, 09/11/22 10:05:00 EDT, Height/Length [...] bedtime), # 90 cap(s), Refills(s) 3, [id number], 154.4, cm, 03/01/23 15:22:00 EST, Height/Length Dosing, 62.7, kg, 03/01/23 15:22:00 EST, Weight Dosing gabapentin, 300 mg = 1 cap(s), Oral, Once a day (at bedtime), # 90 cap(s), Refills(s) 3, [id number], 154.5, cm, 09/11/22 10:05:00 EDT, Height/Length [...] bedtime), # 90 cap(s), Refills(s) 3, [id number], 154.4, cm, 03/01/23 15:22:00 EST, Height/Length Dosing, 62.7, kg, 03/01/23 15:22:00 EST, Weight Dosing gabapentin, 300 mg = 1 cap(s), Oral, Once a day (at bedtime), # 90 cap(s), Refills(s) 3, [id number], 154.5, cm, 09/11/22 10:05:00 EDT, Height/Length Dosing, 63, kg, 09/11/22 10:05:00 EDT, Weight Dosing Orders: cefuroxime, 500 mg = 1 tab(s), Oral, BID, X 7 day(s), # 14 tab(s), Refills(s) 0, [id number], 154.4, cm, 03/01/23 15:22:00 EST, Height/Length Dosing, 62.7, kg, 03/01/23 15:22:00 EST,Weight Dosing Follow-up No aaron (more content not included)...[facility] HospitalComment on above:Result Comment: Electronically Signed By: Carolyn Benoit\Date and Time Signed: 03/01/23 15:38 ESTPatient Logson [id number] Logs [id number]#1.00TIFPremier Health Upper [facility] CenterED Note-Physicianon 37-59-4373SQ Note-Physician [id number]#1.00TIFE[facility] Medicine Office/Clinic Noteon [id number] Medicine Office/Clinic NoteHPI Staff Rafi is a 68 year old female presenting for ER follow up ER followup: Hospital: [place] Visit date: 02/12/23 Symptoms the patient presented [...] encounter, evaluating and assessing the patient, documenting thevisit, and ordering appropriate follow-up work was 40 [...] virus vaccine, inactivated 12/20/2021 Recorded SARS-CoV-2 (COVID-19) mRNAMUL.ORD![id number] 11/28/2021 Recorded 2022-06-29: TPV65 (more content not included)...[facility] HospitalComment on above: Result Comment: Electronically Signed By: Mervin SHANNON, Francisco Terrell\.br\Date and Time Signed: 02/13/23 14:41 ESTRAD - MISCon 28-02-6431YVS - MISC [id number]#1.00TIFFNoMercy Health Springfield Regional Medical CenterFREE T3on 70-60-2551CFIZ T32.00 pg/mlLCritically low2.18-3.98[facility] HospitalComment on above:Performed By: #### FT3, TSH, BMP #### [facility] [address] [place] [address] Dr. Mikayla HainesFRED T4on 92-01-5725Xaah T4 [Mass/Vol]1.13 ng/dLNormal0.76-1.46 The [facility] HospitalComment on above:Performed By: #### FT4 #### [facility] [address] [address] [address] Mikayla HainesGLYCOHEMOGLOBIN A1Con 68-67-4598HEN RECOMMENDATIONSEE BELOWNormal The [facility] HospitalComment on above:Result Comment: ADA RECOMMENDED LIMIT 4.0 - 6.0 ADA THERAPEUTIC TARGET < 7.0 ACTION SUGGESTED > 7.0Performed By: #### A1C #### [facility] [address] [address] [address] Mikayla HainesGlucose [Mass/Vol]140 mg/dLNormalThe [facility] HospitalComment on above:Performed By: #### A1C #### [facility] [address] [place] [address] Dr. Mikayla HainesHbA1c (Bld) [Mass fraction]6.5 %Critically high4.5-6.2The [facility] HospitalComment on above:Performed By: #### A1C #### [facility] [address] [place] [address] Dr. Mikayla HainesPROF CHEM 8 (BAS METB)on 85-23-8598Lrrao gap [Moles/Vol]7.7 mmol/LNormalGalion Community HospitalComment on above:Performed By: #### FT3, TSH, BMP #### [facility] [address] [address] [address] Mikayla HainesCalcium [Mass/Vol]9.2 mg/dLNormal8.5-10.1[facility] Comment on above:Performed By: #### FT3, TSH, BMP #### [facility] [address] [place] [address] Dr. Mikayla HainesChloride [Moles/Vol]102 mmol/LZvvieg25-221CufGalion Community Hospital Comment on above:Performed By: #### FT3, TSH, BMP #### [facility] [address] [place] [address] Dr. Mikayla HainesCO2 [Moles/Vol]33.1 mmol/LCritically high21.0-32.0The [facility] HospitalComment on above:Performed By: #### FT3, TSH, BMP #### [facility] [address] [place] [address] Dr. Mikayla HainesCreatinine [Mass/Vol]0.62 mg/dLNormal0.55-1.02The [facility] HospitalComment on above:Performed By: #### FT3, TSH, BMP #### [facility] [address] [place] [address] Dr. Mikayla DuongGFR-AF SENEGALESE>116Normal>=60The [facility] HospitalComment on above:Performed By: #### FT3, TSH, BMP #### [facility] [address] [place] [address] Dr. Mikayla DuongGFR-NON AF SENEGALESE>95Normal>=60The [facility] HospitalComment on above:Performed By: #### FT3, TSH, BMP #### [facility] [address] [place] [address] Dr. Mikayla HainesGlucose [Mass/Vol]182 mg/dLCritically wfkk96-826Mtb [facility] on above:Performed By: #### FT3, TSH, BMP #### [facility] [address] [place] [address] Dr. Mikayla HainesPotassium [Moles/Vol]3.8 mmol/LNormal3.5-5.1[facility] Comment on above:Performed By: #### FT3, TSH, BMP #### [facility] [address] [place] [address] Dr. Mikayla HainesSodium [Moles/Vol]139 mmol/HWjsrvi560-700Ays [facility] Comment on above:Performed By: #### FT3, TSH, BMP #### [facility] [address] [place] [address] Dr. Mikayla HainesUrea nitrogen [Mass/Vol]25.0 mg/dLCritically high7.0-18.0The [facility] HospitalComment on above:Performed By: #### FT3, TSH, BMP #### [facility] [address] [place] [address] Dr. Mikayla Grant nitrogen/Creatinine [Mass ratio]40.3 mg/mgNormalThe [facility] HospitalComment on above:Performed By: #### FT3, TSH, BMP #### [facility] [address] [place] [address] Dr. Mikayla Alves 06-65-7821APU1.499 uIU/mLNormal0.358-3.740The [facility] HospitalComment on above:Performed By: #### FT3, TSH, BMP #### [facility] [address] [place] [address] Dr. Mikayla Schaeffer 72-32-1436Evsrdelxisf peptide B (Bld) [Mass/Vol]409.0 pg/mL Normal<=900.0The [facility] HospitalComment on above:Performed By: #### FT3, TSH, BMP #### [facility] [address] [place] [address] Dr. Mikayla Feng AUTO DIFFon 14-69-4928AGEG #0.0 103/ulNormal0.0-0.1The [facility] HospitalComment on above:Performed By: #### FT3, TSH, BMP #### [facility] [address] [place] [address] Dr. Mikayla HainesBasophils/100 WBC (Bld)0.5 %Normal0.2-2.0The [facility] Comment on above:Performed By: #### FT3, TSH, BMP #### [facility] [address] [place] [address] Dr. Mikayla Palm #0.3 103/ulNormal0.0-0.7The [facility] HospitalComment on above: Performed By: #### FT3, TSH, BMP #### [facility] [address] [place] [address] Dr. Mikayla Duongosinophils/100 WBC (Bld)6.3 %Normal0.9-7.0The [facility] Comment on above:Performed By: #### FT3, TSH, BMP #### [facility] [address] [place] [address] Dr. Mikayla Duongrythrocyte distribution width (RBC) [Ratio]12.7 %Fvpwyj52.0-15.0 The [facility] HospitalComment on above:Performed By: #### FT3, TSH, BMP #### [facility] [address] [place] [address] Dr. Mikayla HainesHematocrit (Bld) [Volume fraction]38.3 %Hmbwwh53.0-48.0The [facility] HospitalComup health system on above:Performed By: #### FT3, TSH, BMP #### [facility] [address] [place] [address] Dr. iMkayla HainesHemoglobin (Bld) [Mass/Vol]12.6 g/hGAetwql59.0-16.0The [facility] Hospitalment on above:Performed By: #### FT3, TSH, BMP #### [facility] [address] [place] [address] Dr. Mikayla Zarate #0.01 10e3/ulNormal0.00-0.03The [facility] on above:Performed By: #### FT3, TSH, BMP #### [facility] [address] [place] [address] Dr. Mikayla Zarate %0.3 %Normal0.0-0.5The [facility] on above: Performed By: #### FT3, TSH, BMP #### [facility] [address] [place] [address] Dr. Mikayla Lugo #1.2 103/ulNormal1.2-3.8The [facility] HospitalComup health system on above:Performed By: #### FT3, TSH, BMP #### [facility] [address] [place] [address] Dr. Mikayla Avilesmphocytes/100 WBC (Bld)30.4 %Hsygho39.5-60.0The [facility] on above:Performed By: #### FT3, TSH, BMP #### [facility] [address] [place] [address] Dr. Mikayla Traylor DIFF REQNONormalThe [facility] HospitalComment on above: Performed By: #### FT3, TSH, BMP #### [facility] [address] [place] [address] Dr. Mikayla Dinh (RBC) [Entitic mass]30.4 xdDmorjw20.7-34.0The [facility] HospitalComment on above:Performed By: #### FT3, TSH, BMP #### [facility] [address] [place] [address] Dr. Mikayla Dinh (RBC) [Mass/Vol]32.9 g/mXXuyksf26.9-35.2The [facility] HospitalComment on above:Performed By: #### FT3, TSH, BMP #### [facility] [address] [place] [address] Dr. Mikayla Dinh (RBC) [Entitic vol]92.5 dGBhbtok21.0-99.0The [facility] HospitalComment on above:Performed By: #### FT3, TSH, BMP #### [facility] [address] [place] [address] Dr. Mikayla Torres #0.5 103/ulNormal0.3-0.8The [facility] HospitalComment on above:Performed By: #### FT3, TSH, BMP #### [facility] [address] [place] [address] Dr. Mikayla Zuñigaocytes/100 WBC (Bld)11.4 %Normal1.7-12.0The [facility] Comment on above:Performed By: #### FT3, TSH, BMP #### [facility] [address] [place] [address] Dr. Mikayla Magaña #2.0 103/ulNormal1.4-6.5The [facility] HospitalComment on above:Performed By: #### FT3, TSH, BMP #### [facility] [address] [place] [address] Dr. Yilan ChangNeutrophils/100 WBC (Bld)51.1 %Gilytb20.0-75.0The [facility] HospitalComment on above:Performed By: #### FT3, TSH, BMP #### [facility] [address] [place] [address] Dr. Mikayla Phelan mean volume (Bld) [Entitic vol]10.5 fLNormal9.5-13.5The [facility] HospitalComment on above:Performed By: #### FT3, TSH, BMP #### [facility] [address] [place] [address] Dr. Mikayla HainesPLT166 103/omWrflmd561-333Nhd [facility] on above: Performed By: #### FT3, TSH, BMP #### [facility] [address] [place] [address] Dr. Mikayla HainesRBC4.14 106/ulCritically low4.20-5.40The [facility] on above:Performed By: #### FT3, TSH, BMP #### [facility] [address] [place] [address] Dr. Mikayla HainesWBC4.0 103/ulNormal4.0-11.0The [facility] on above: Performed By: #### FT3, TSH, BMP #### [facility] [address] [place] [address] Dr. Mikayla Birmingham T3on 08-15-8931ABZR T32.07 pg/mlLCritically low2.18-3.98The [facility] on above:Performed By: #### MG, BMP #### [facility] [address] [place] [address] Dr. Mikayla Birmingham T4on 82-79-9528Wret T4 [Mass/Vol]0.87 ng/dLNormal0.76-1.46 The [facility] on above:Performed By: #### FT3, TSH, BMP #### [facility] [address] [place] [address] Dr. Mikayla HainesMAGNESIUMon 01-51-8711Nyuhlvnsd [Mass/Vol]1.8 mg/dLNormal1.8-2.4 The [facility] HospitalComment on above:Performed By: #### MG #### [facility] [address] [place] [address] Dr. Mikayla SharpF CHEM 8 (BAS METB)on 45-90-3065Cockl gap [Moles/Vol]7.5 mmol/LNormalThe [facility] HospitalComment on above:Performed By: #### FT3, TSH, BMP #### [facility] [address] [place] [address] Dr. Mikayla HainesCalcium [Mass/Vol]9.0 mg/dLNormal8.5-10.1The [facility] Comment on above:Performed By: #### FT3, TSH, BMP #### [facility] [address] [place] [address] Dr. Mikayla HainesChloride [Moles/Vol]105 mmol/WVdteog64-880Mys [facility] Comment on above:Performed By: #### FT3, TSH, BMP #### [facility] [address] [place] [address] Dr. Mikayla HainesCO2 [Moles/Vol]30.6 mmol/NIogaxm02.0-32.0[facility] Comment on above:Performed By: #### FT3, TSH, BMP #### [facility] [address] [place] [address] Dr. Mikayla HainesCreatinine [Mass/Vol]0.73 mg/dLNormal0.55-1.02The [facility] HospitalComment on above:Performed By: #### FT3, TSH, BMP #### [facility] [address] [place] [address] Dr. Mikayla DuongGFR-AF SENEGALESE>60Normal>=60The [facility] HospitalComment on above:Performed By: #### FT3, TSH, BMP #### [facility] [address] [place] [address] Dr. Mikayla DuongGFR-NON AF SENEGALESE>60Normal>=60The [facility] Hospitalment on above:Performed By: #### FT3, TSH, BMP #### [facility] [address] [place] [address] Dr. Mikayla HainesGlucose [Mass/Vol]273 mg/dLCritically byfc21-864Ilz [facility] HospitalComment on above:Performed By: #### FT3, TSH, BMP #### [facility] [address] [place] [address] Dr. Mikayla HainesPotassium [Moles/Vol]3.1 mmol/LCritically low3.5-5.1The [facility] HospitalComment on above:Performed By: #### FT3, TSH, BMP #### [facility] [address] [place] [address] Dr. Mikayla HainesSodium [Moles/Vol]140 mmol/NZmnyqt568-294Doa [facility] Comment on above:Performed By: #### FT3, TSH, BMP #### [facility] [address] [place] [address] Dr. Mikayla HainesUrea nitrogen [Mass/Vol]20.0 mg/dLCritically high7.0-18.0The [facility] HospitalComment on above:Performed By: #### FT3, TSH, BMP #### [facility] [address] [place] [address] Dr. Mikayla Grant nitrogen/Creatinine [Mass ratio]27.4 mg/mgNormalThe [facility] HospitalComment on above:Performed By: #### FT3, TSH, BMP #### [facility] [address] [place] [address] Dr. Mikayla Avila, HIGH SENSITIVITYon 35-44-1020DPYJHQ4.8 pg/mLNormal 4.0-51.3The [facility] HospitalComment on above:Result Comment: CUT-OFF POINTS HAVE BEEN ESTABLISHED BASED ON THE FOURTH UNIVERSAL DEFINITIONS OF MYOCARDIAL INFARCTION. THE UPPER REFERENCE LIMIT (URL) OF TROPONIN, DEFINED THE 99TH PERCENTILE OF cTnI DISTRIBUTION IN A REFERENCE POPULATION, HAS BEEN CONFIRMED THE DECISION THRESHOLD FOR [place] DIAGNOSIS.Performed By: #### HSTROPN, BNP, BMP, TSH #### [facility] [address] [address] [address] Mikayla Alves 29-80-9241YWB1.903 uIU/mLCritically high0.358-3.740The [facility] HospitalComment on above:Performed By: #### FT3, TSH, BMP #### [facility] [address] [address] [address] Mikayla HainesXR CHEST 1 Von 69-75-0970SR CHEST 1 VEXAM: XR CHEST 1 V HISTORY: Palpitations COMPARISON: [...] Electronically authenticated by: Jay PEDERSEN Date: 2022-04-23 05:[address] [place], [place] [address]Office Visit (Cardiology)on 44-96-0692Amcftn-up visit Diagnoses/Problems Assessed Arteriosclerotic heart disease (ASHD) [...] Hyperlipidemia AST; Status:Active - Retrospective Authorization; Requested for:[id number]; SocHx: Never a smoker Tobacco Use Screening; [...] she remains on appropriate guideline directedmedical therapies. She is diabetic, normotensive and remains [...] Recorded: 17Jan2022 09:58AM Heart Rate65, L Radial Gccrrhdf363, RUE, Sitting Cposlxrei36, RUE, Sitting Height5 ft 5 in Zhweyw779 lb 4 oz BMI Dykqltftmd77.67 kg/m2 BSA Calculated1.71 Tobacco Useb) No PHQ-2 #1. Over the last 2 weeks have you felt down, depressed or hopeless? (If yes, answer PHQ-9 below)No PHQ-2 #2. Over the last 2 weeks have you felt little interest or pleasure in doing things? (If yes,answer PHQ-9 below)No Falls Screening (Age 18+)a) No [...] and insight is normal (more content not included)...Normal TouchworksTobacco Screening.on 40-99-8541Ztikg depression screening assessmentNoMultiCare [facility] [employer] DO Work Phone: Fall risk assessmenta) No falls within the last year [facility] [employer] 250 DO Work Phone: Tobacco use status CPHSb) NoMEvergreenhealth Medical Center [employer] 250 DO Work Phone: GLYCOHEMOGLOBIN A1Con 71-17-6456XPU RECOMMENDATIONSEE [facility]ion HospitalComment on above:Result Comment: ADA RECOMMENDED LIMIT 4.0 - 6.0 ADA THERAPEUTIC TARGET < 7.0 ACTION SUGGESTED > 7.0Performed By: #### FT3, TSH, BMP #### [facility] [address] [place] [address] Dr. Mikayla HainesGlucose [Mass/Vol]148 mg/dLNormalThe [facility] HospitalComment on above:Performed By: #### FT3, TSH, BMP #### [facility] [address] [place] [address] Dr. Mikayla HainesHbA1c (Bld) [Mass fraction]6.8 %Critically high4.5-6.2The [facility] HospitalComment on above:Performed By: #### FT3, TSH, BMP #### [facility] [address] [place] [address] Dr. Mikayla Feng AUTO DIFFon 30-64-8158IHJE #0.0 103/ulNormal0.0-0.1The [facility] HospitalComment on above:Performed By: #### FT3, TSH, BMP #### [facility] [address] [place] [address] Dr. Mikayla HainesBasophils/100 WBC (Bld)0.5 %Normal0.2-2.0The [facility] Comment on above:Performed By: #### FT3, TSH, BMP #### [facility] [address] [place] [address] Dr. Mikayla Palm #0.3 103/ulNormal0.0-0.7The [facility] HospitalComment on above: Performed By: #### FT3, TSH, BMP #### [facility] [address] [place] [address] Dr. Mikayla Duongosinophils/100 WBC (Bld)5.1 %Normal0.9-7.0The [facility] Comment on above:Performed By: #### FT3, TSH, BMP #### [facility] [address] [place] [address] Dr. Mikayla Duongrythrocyte distribution width (RBC) [Ratio]12.5 %Gwxoah00.0-15.0 The [facility] HospitalComment on above:Performed By: #### FT3, TSH, BMP #### [facility] [address] [place] [address] Dr. Mikayla HainesHematocrit (Bld) [Volume fraction]39.6 %Uipdxv79.0-48.0The [facility] HospitalComment on above:Performed By: #### FT3, TSH, BMP #### [facility] [address] [place] [address] Dr. Mikayla HainesHemoglobin (Bld) [Mass/Vol]13.4 g/dLLkmczs36.0-16.0The [facility] HospitalComment on above:Performed By: #### FT3, TSH, BMP #### [facility] [address] [place] [address] Dr. Mikayla Zarate #0.01 10e3/ulNormal0.00-0.03The [facility] HospitalComment on above:Performed By: #### FT3, TSH, BMP #### [facility] [address] [place] [address] Dr. Mikayla Zarate %0.2 %Normal0.0-0.5The [facility] HospitalComment on above: Performed By: #### FT3, TSH, BMP #### [facility] [address] [place] [address] Dr. Mikayla Lugo #1.3 103/ulNormal1.2-3.8The [facility] HospitalComment on above:Performed By: #### FT3, TSH, BMP #### [facility] [address] [place] [address] Dr. Mikayla Avilesmphocytes/100 WBC (Bld)22.5 %Znmqoy43.5-60.0The [facility] HospitalComment on above:Performed By: #### FT3, TSH, BMP #### [facility] [address] [place] [address] Dr. Mikayla CarrenoUAL DIFF REQNONormalThe [facility] HospitalComment on above: Performed By: #### FT3, TSH, BMP #### [facility] [address] [place] [address] Dr. Mikayla Dinh (RBC) [Entitic mass]30.5 zvZtuypt90.7-34.0The [facility] HospitalComment on above:Performed By: #### FT3, TSH, BMP #### [facility] [address] [place] [address] Dr. Mikayla Dinh (RBC) [Mass/Vol]33.8 g/bPPezllk06.9-35.2The [facility] HospitalComment on above:Performed By: #### FT3, TSH, BMP #### [facility] [address] [place] [address] Dr. Mikayla Dinh (RBC) [Entitic vol]90.0 gNTshcbi02.0-99.0The [facility] HospitalComment on above:Performed By: #### FT3, TSH, BMP #### [facility] [address] [place] [address] Dr. Mikayla Torres #0.6 103/ulNormal0.3-0.8The [facility] HospitalComment on above:Performed By: #### FT3, TSH, BMP #### [facility] [address] [place] [address] Dr. Mikayla Zuñigaocytes/100 WBC (Bld)9.3 %Normal1.7-12.0The [facility] Comment on above:Performed By: #### FT3, TSH, BMP #### [facility] [address] [place] [address] Dr. Mikayla Magaña #3.7 103/ulNormal1.4-6.5The [facility] HospitalComment on above:Performed By: #### FT3, TSH, BMP #### [facility] [address] [place] [address] Dr. Mikayla Mesautrophils/100 WBC (Bld)62.4 %Ctnxjp42.0-75.0The [facility] HospitalComment on above:Performed By: #### FT3, TSH, BMP #### [facility] [address] [place] [address] DrCristal Phelan mean volume (Bld) [Entitic vol]9.6 fLNormal9.5-13.5The [facility] HospitalComment on above:Performed By: #### FT3, TSH, BMP #### [facility] [address] [place] [address] Dr. Mikayla HainesPLT179 103/jrVgipyp792-717Yzg [facility] on above: Performed By: #### FT3, TSH, BMP #### [facility] [address] [place] [address] Dr. Mikayla HainesRBC4.40 106/ulNormal4.20-5.40The [facility] on above:Performed By: #### FT3, TSH, BMP #### [facility] [address] [place] [address] Dr. Mikayla HainesWBC5.9 103/ulNormal4.0-11.0The [facility] on above: Performed By: #### FT3, TSH, BMP #### [facility] [address] [place] [address] Dr. Mikayla Carnes [id number] [Mass/Vol]mg/LNormal<=1.0The [facility] on above:Performed By: #### FT3, TSH, BMP #### [facility] [address] [place] [address] Dr. Mikayla HainesCT FACIAL BONES WO CONon [id number] FACIAL BONES WO CON EXAMINATION: CT FACIAL [...] Electronically authenticated by: LUCILA KNIGHT Date: 2021-12-10 01:24[facility] CenterPROF CHEM 8 (BAS METB)on [id number] gap [Moles/Vol]6.8 mmol/LNormalThe [facility] HospitalComment on above:Performed By: #### FT3, TSH, BMP #### [facility] [address] [address] [address] Mikayla HainesCalcium [Mass/Vol]8.7 mg/dLNormal8.5-10.1[facility] Comment on above:Performed By: #### FT3, TSH, BMP #### [facility] [address] [address] [address] Mikayla HainesChloride [Moles/Vol]105 mmol/EEbzzxy02-939NqiGalion Community Hospital Comment on above:Performed By: #### FT3, TSH, BMP #### [facility] [address] [address] [address] Mikayla HainesCO2 [Moles/Vol]32.6 mmol/LCritically high21.0-32.0The [facility] HospitalComment on above:Performed By: #### FT3, TSH, BMP #### [facility] [address] [address] [address] Mikayla HainesCreatinine [Mass/Vol]0.97 mg/dLNormal0.55-1.02The [facility] HospitalComment on above:Performed By: #### FT3, TSH, BMP #### [facility] [address] [address] [address] Mikayla DuongGFR-AF SENEGALESE>60Normal>=60The [facility] Hospitalment on above:Performed By: #### FT3, TSH, BMP #### [facility] [address] [place] [address] Dr. Mikayla DuongGFR-NON AF LMLYCYSF97 mL/min/1.48l1Qircemqbvz low>=60The [facility] Martin HospitalComment on above:Performed By: #### FT3, TSH, BMP #### [facility] [address] [address] [address] Mikayla HainesGlucose [Mass/Vol]144 mg/dLCritically pvaw01-150Zbt [facility] HospitalComment on above:Performed By: #### FT3, TSH, BMP #### [facility] [address] [address] [address] Mikayla HainesPotassium [Moles/Vol]3.4 mmol/LCritically low3.5-5.1The [facility] HospitalComment on above:Performed By: #### FT3, TSH, BMP #### [facility] [address] [address] [address] Mikayla HainesSodium [Moles/Vol]141 mmol/AFbiqbj179-393Yoo [facility] Comment on above:Performed By: #### FT3, TSH, BMP #### [facility] [address] [address] [address] Mikayla HainesUrea nitrogen [Mass/Vol]24.0 mg/dLCritically high7.0-18.0The [facility] HospitalComment on above:Performed By: #### FT3, TSH, BMP #### [facility] [address] [address] [address] Mikayla Grant nitrogen/Creatinine [Mass ratio]24.7 mg/mgNormalThe [facility] HospitalComment on above:Performed By: #### FT3, TSH, BMP #### [facility] [address] [address] [address] Mikayla HainesXR ABD FLAT UP_PA Angelina [id number] ABD FLAT UP_PA CHEXAMINATION: XR ABD FLAT UP_PA CH HISTORY: Right [...] Electronically authenticated by: DAGOBERTO SRIVASTAVA Date: 2021-11-02 16:34NoMercy Health Defiance HospitalXR KUB 1 VIEWon [id number] KUB 1 VIEWPLAIN FILM OF THE ABDOMEN HISTORY: Abdominal pain. [...] Electronically authenticated by: PADMINI JOHNSON Date: 2021-09-26 22:50[facility] W MANUAL DIFFon [id number] LYMPH #NormalProvidence [facility] on above:Performed By: #### FT3, TSH, BMP #### [facility] [address] [place] [address] Dr. Mikayla HainesATYPICAL LYMPH %NormalThe [facility] on above: Performed By: #### FT3, TSH, BMP #### [facility] [address] [place] [address] Dr. Mikayla Shirley #Normal0.0-0.3The [facility] HospitalComment on above: Performed By: #### FT3, TSH, BMP #### [facility] [address] [address] [address] Mikayla Shirley %Normal0-5The [facility] HospitalComment on above:Performed By: #### FT3, TSH, BMP #### [facility] [address] [place] [address] Dr. Mikayla Augustine #0.00 103/ulNormal0.00-0.10The [facility] on above:Performed By: #### FT3, TSH, BMP #### [facility] [address] [place] [address] Dr. Mikayla Augustine %0.0 %Critically low0.2-2.0The [facility] on above:Performed By: #### FT3, TSH, BMP #### [facility] [address] [place] [address] Dr. Mikayla Whyte #NormalThe [facility] HospitalComment on above:Performed By: #### FT3, TSH, BMP #### [facility] [address] [place] [address] Dr. Mikayla Whyte %NormalThe [facility] HospitalComup health system on above:Performed By: #### FT3, TSH, BMP #### [facility] [address] [place] [address] Dr. Mikayla HainesCORRECTED WBCNormal4.0-11.0The [facility] on above: Performed By: #### FT3, TSH, BMP #### [facility] [address] [place] [address] Dr. Mikayla Atkinson #0.23 103/ulNormal0.00-0.70The [facility] on above:Performed By: #### FT3, TSH, BMP #### [facility] [address] [place] [address] Dr. Mikayla Atkinson%4.0 %Normal0.9-7.0The [facility] on above: Performed By: #### FT3, TSH, BMP #### [facility] [address] [place] [address] Dr. Mikayla HainesHCT36.5 %Phipjl38.0-48.0The [facility] on above: Performed By: #### FT3, TSH, BMP #### [facility] [address] [place] [address] Dr. Mikayla HainesHGB12.3 g/qdKkidfb70.0-16.0The [facility] on above: Performed By: #### FT3, TSH, BMP #### [facility] [address] [place] [address] Dr. Mikayla Fuchs #1.45 103/ulNormal1.20-3.80The [facility] on above:Performed By: #### FT3, TSH, BMP #### [facility] [address] [place] [address] Dr. Mikayla Fuchs%25.0 %Hmdoog18.5-60.0The [facility] HospitalComment on above:Performed By: #### FT3, TSH, BMP #### [facility] [address] [place] [address] Dr. Mikayla DinhH30.5 ryDolttf47.7-34.0The [facility] HospitalComup health system on above: Performed By: #### FT3, TSH, BMP #### [facility] [address] [place] [address] Dr. Mikayla DinhHC33.7 g/kfHlphwh73.9-35.2The [facility] HospitalComup health system on above:Performed By: #### FT3, TSH, BMP #### [facility] [address] [place] [address] Dr. Mikayla DinhV90.6 sIJqnajt71.0-99.0The [facility] on above: Performed By: #### FT3, TSH, BMP #### [facility] [address] [place] [address] Dr. Mikayla GreggOCYTE #NormalThe [facility] HospitalComup health system on above: Performed By: #### FT3, TSH, BMP #### [facility] [address] [place] [address] Dr. Mikayla GreggOCYTE %NormalThe [facility] HospitalComup health system on above: Performed By: #### FT3, TSH, BMP #### [facility] [address] [place] [address] Dr. Mikayla Deshpande#0.52 103/ulNormal0.30-0.80The [facility] Hospitalment on above:Performed By: #### FT3, TSH, BMP #### [facility] [address] [place] [address] Dr. Mikayla Deshpande%9.0 %Normal1.7-12.0The [facility] HospitalComment on above: Performed By: #### FT3, TSH, BMP #### [facility] [address] [place] [address] Dr. Mikayla BrittV9.3 fLCritically low9.5-13.5The [facility] HospitalComment on above:Performed By: #### FT3, TSH, BMP #### [facility] [address] [place] [address] Dr. Mikayla SwainOCYTE #NormalThe [facility] HospitalComment on above:Performed By: #### FT3, TSH, BMP #### [facility] [address] [place] [address] Dr. Mikayla SwainOCYTE %NormalThe [facility] HospitalComment on above:Performed By: #### FT3, TSH, BMP #### [facility] [address] [place] [address] Dr. Mikayla HainesNRBCNormalThe [facility] HospitalComment on above:Performed By: #### FT3, TSH, BMP #### [facility] [address] [place] [address] Dr. Mikayla HainesPLT176 103/anCotwbq160-316Cgb [facility] HospitalComup health system on above: Performed By: #### FT3, TSH, BMP #### [facility] [address] [place] [address] Dr. Mikayla LubinC4.03 106/ulCritically low4.20-5.40The [facility] HospitalComment on above:Performed By: #### FT3, TSH, BMP #### [facility] [address] [place] [address] Dr. Mikayla HainesRDW12.2 %Ttuwps11.0-15.0The [facility] HospitalComment on above: Performed By: #### FT3, TSH, BMP #### [facility] [address] [place] [address] Dr. Mikayla Biggs #3.60 103/ulNormal1.40-6.50The [facility] HospitalComment on above:Performed By: #### FT3MARIANNA, BMP #### [facility] [address] [address] [address] Mikayla Biggs %62.0 %Dylgxq23.0-75.0The [facility] HospitalComment on above: Performed By: #### FT3MARIANNA, BMP #### [facility] [address] [address] [address] Mikayla HainesWBC5.8 103/ulNormal4.0-11.0The [facility] HospitalComment on above: Performed By: #### MARIANNA DIAS, BMP #### [facility] [address] [place] [address] Dr. Mikayla HainesCT ABD/PELVIS WO CONon [id number] ABD/PELVIS WO CONEXAM: CT ABD/PELVIS WO CON STUDY DATE: 09/26/2021 [...] Electronically authenticated by: LAMBERTO DOLAN Date: 2021-09-26 20:48NormGalion Hospitale [facility] HospitalCULTURE URINEon [id number] URINECulture Observations: NO GROWTH.NormalThe [facility] HospitalComment on above:Performed By: #### FT3, TSH, BMP #### [facility] [address] [address] [address] Mikayla Alvarenga URINE PROFILEon [id number] Ql (U)NegativeNormal NEGATIVEMercy Health St. Vincent Medical Centerment on above:Performed By: #### FT3, TSH, BMP #### [facility] [address] [address] [address] Mikayla Dean (U)CLEARNormalCLEARGalion Community HospitalComment on above: Performed By: #### FT3, TSH, BMP #### [facility] [address] [address] [address] Mikayla French (U)LT. YELLOWNormalYELLOWGalion Community HospitalComment on above:Performed By: #### FT3, TSH, BMP #### [facility] [address] [address] [address] Mikayla Babin micrscopic examination will be performed if indicated. NormalThe [facility] HospitalComment on above:Performed By: #### FT3, TSH, BMP #### [facility] [address] [address] [address] Mikayla HainesGlucose Ql (U)250 mg/dlAbnormalNEGMercy Health [facility]field Hospital Comment on above:Performed By: #### FT3, TSH, BMP #### [facility] [address] [address] [address] Mikayla HainesHemoglobin Ql (U)LARGEAbnormalNEGATIVEGalion Community Hospital Comment on above:Performed By: #### FT3, TSH, BMP #### [facility] [address] [address] [address] Mikayla HainesKetones Ql (U)NegativeNormalNEGATIVEGalion Community HospitalComment on above:Performed By: #### FT3, TSH, BMP #### [facility] [address] [place] [address] Dr. Mikayla HainesLEUKOCYTESNegativeNormalNEGATIVEGalion Community HospitalComment on above:Performed By: #### FT3, TSH, BMP #### [facility] [address] [place] [address] Dr. Mikayla HainesNitrite Ql (U)NegativeNormalNEGATIVEGalion Community HospitalComment on above:Performed By: #### FT3, TSH, BMP #### [facility] [address] [place] [address] Dr. Mikayla HainespH (U)7.5 [pH]Normal5-9[facility] HospitalComment on above: Performed By: #### FT3, TSH, BMP #### [facility] [address] [place] [address] Dr. Mikayla HainesSPEC GRAVITY1.219Cquubb6.005-<=1.025The [facility] HospitalComment on above:Performed By: #### FT3, TSH, BMP #### [facility] [address] [place] [address] Dr. Mikayla HainesUA PROTEINNegativeNormalNEGATIVE/ TRACEThe [facility] Comment on above:Performed By: #### FT3, TSH, BMP #### [facility] [address] [place] [address] Dr. Mikayla MENDEZ [facility] HospitalComment on above: Performed By: #### FT3, TSH, BMP #### [facility] [address] [place] [address] Dr. Mikayla Dixon Qn (U)0.2 {Jayesh'U}/dLNormal0.2 - 1.0The [facility] HospitalComment on above:Performed By: #### FT3, TSH, BMP #### [facility] [address] [place] [address] Dr. Mikayla HainesLACTATE/LACTIC ACIDon [id number] [Moles/Vol]1.5 mmol/L Normal0.4-1.9The [facility] on above:Performed By: #### FT3, TSH, BMP #### [facility] [address] [place] [address] Dr. Mikayla Agudelo 14(COMP METB)on 14-66-0392Mwaqzge [Mass/Vol]3.5 g/dLNormal 3.4-5.0The [facility] on above:Performed By: #### FT3, TSH, BMP #### [facility] [address] [place] [address] Dr. Mikayla HainesAlbumin/Globulin [Mass ratio]1.4 {ratio}NormalThe [facility] HospitalComup health system on above:Performed By: #### FT3, TSH, BMP #### [facility] [address] [place] [address] Dr. Mikayla Serna [Catalytic activity/Vol]77 U/TOmqtnu70-152Fhf [facility] HospitalComup health system on above:Performed By: #### FT3, TSH, BMP #### [facility] [address] [place] [address] Dr. Mikayla Cummings [Catalytic activity/Vol]41 U/ZUgusuu07-77Nve [facility] HospitalComment on above:Performed By: #### FT3, TSH, BMP #### [facility] [address] [place] [address] Dr. Mikayla Mcdonald gap [Moles/Vol]7.4 mmol/LNormalThe [facility] HospitalComment on above:Performed By: #### FT3, TSH, BMP #### [facility] [address] [address] [address] Mikayla HainesAST [Catalytic activity/Vol]24 U/YXchthk65-03Aet [facility] HospitalComment on above:Performed By: #### FT3, TSH, BMP #### [facility] [address] [address] [address] Mikayla HainesBilirubin [Mass/Vol]1.5 mg/dLCritically high0.2-1.0The [facility] HospitalComment on above:Performed By: #### FT3, TSH, BMP #### [facility] [address] [place] [address] Dr. Mikayla HainesCalcium [Mass/Vol]8.7 mg/dLNormal8.5-10.1The [facility] Comment on above:Performed By: #### FT3, TSH, BMP #### [facility] [address] [place] [address] Dr. Mikayla HainesChloride [Moles/Vol]105 mmol/TWnamrz31-630Lhz [facility] Comment on above:Performed By: #### FT3, TSH, BMP #### [facility] [address] [place] [address] Dr. Mikayla HainesCO2 [Moles/Vol]31.8 mmol/EDopbpe73.0-32.0The [facility] Comment on above:Performed By: #### FT3, TSH, BMP #### [facility] [address] [place] [address] Dr. Mikayla HainesCreatinine [Mass/Vol]0.80 mg/dLNormal0.55-1.02The [facility] HospitalComment on above:Performed By: #### FT3, TSH, BMP #### [facility] [address] [place] [address] Dr. Degroot ChangEGFR-AF SENEGALESE>60Normal>=60The [facility] HospitalComment on above:Performed By: #### FT3, TSH, BMP #### [facility] [address] [address] [address] Mikayla DuongGFR-NON AF SENEGALESE>60Normal>=60The [facility] HospitalComment on above:Performed By: #### FT3, TSH, BMP #### [facility] [address] [place] [address] Dr. Mikayla HainesGlobulin (S) [Mass/Vol]2.5 g/dLNormalThe [facility] HospitalComment on above:Performed By: #### FT3, TSH, BMP #### [facility] [address] [place] [address] Dr. Mikayla HainesGlucose [Mass/Vol]144 mg/dLCritically zova48-039Yyo [facility] HospitalComment on above:Performed By: #### FT3, TSH, BMP #### [facility] [address] [place] [address] Dr. Mikayla HainesPotassium [Moles/Vol]3.2 mmol/LCritically low3.5-5.1The [facility] HospitalComment on above:Performed By: #### FT3, TSH, BMP #### [facility] [address] [place] [address] Dr. Mikayla HainesProtein [Mass/Vol]6.0 g/dLCritically low6.4-8.2The [facility] HospitalComment on above:Performed By: #### FT3, TSH, BMP #### [facility] [address] [place] [address] Dr. Mikayla HainesSodium [Moles/Vol]141 mmol/TOkwcop755-761Iqh [facility] Comment on above:Performed By: #### FT3, TSH, BMP #### [facility] [address] [place] [address] Dr. Mikayla HainesUrea nitrogen [Mass/Vol]21.0 mg/dLCritically high7.0-18.0The [facility] HospitalComment on above:Performed By: #### FT3, TSH, BMP #### [facility] [address] [place] [address] Dr. Mikayla HainesUrea nitrogen/Creatinine [Mass ratio]26.2 mg/mgNoOhioHealth Pickerington Methodist Hospital on above:Performed By: #### FT3, TSH, BMP #### [facility] [address] [place] [address] Dr. Mikayla Joaquin MICROSCOPIC ONLYon 27-30-4672TKXCLPZFRWTAGPjnmqjgaEDXK SEEN [facility] on above:Performed By: #### FT3, TSH, BMP #### [facility] [address] [place] [address] Dr. Mikayla Orourke identified Cx Nom (U)INDICATEDSelect Medical Specialty Hospital - [place] on above:Performed By: #### FT3, TSH, BMP #### [facility] [address] [place] [address] Dr. Mikayla Mcmahan SEENNormalNONE SEENProvidence Hospital on above:Performed By: #### FT3, TSH, BMP #### [facility] [address] [place] [address] Dr. Mikayla Shultzystals LM Nom (Urine sed)NONE SEENNormalNONE SEENProvidence Hospital on above:Performed By: #### FT3, TSH, BMP #### [facility] [address] [place] [address] Dr. Degroot ChangEkishorethelial cells LM Ql (Urine sed)RARENormalNONE SEEN /RAREThe [facility] HospitalComup health system on above:Performed By: #### FT3, TSH, BMP #### [facility] [address] [place] [address] Dr. Mikayla HernandezCOUSJOSSIEE SEENNormalNONE SEENProvidence Hospital on above:Performed By: #### FT3, TSH, BMP #### [facility] [address] [place] [address] Dr. Mikayla HainesGciboSKJ62-19Dzsgbxhu6-6Dxz [facility] on above: Performed By: #### FT3, TSH, BMP #### [facility] [address] [place] [address] Dr. Mikayla HainesWBC0-2AbnormalNONE SEENGalion Community HospitalComment on above: Performed By: #### FT3, TSH, BMP #### [facility] [address] [address] [address] Mikayla HainesGLYCOHEMOGLOBIN A1Con 30-72-1332RXK RECOMMENDATIONSEE BELOWNormal The [facility] HospitalComment on above:Result Comment: ADA RECOMMENDED LIMIT 4.0 - 6.0 ADA THERAPEUTIC TARGET < 7.0 ACTION SUGGESTED > 7.0Performed By: #### A1C #### [facility] [address] [address] [address] Mikayla HainesGlucose [Mass/Vol]192 mg/dLNormalThe [facility] HospitalComment on above:Performed By: #### A1C #### [facility] [address] [address] [address] Mikayla HainesHbA1c (Bld) [Mass fraction]8.3 %Critically high4.5-6.2The [facility] HospitalComment on above:Performed By: #### A1C #### [facility] [address] [address] [address] Mikayla HainesMAGNESIUMon 83-48-6990Ihvnmqzth [Mass/Vol]2.0 mg/dLNormal1.8-2.4 The [facility] HospitalComment on above:Performed By: #### MG, BMP #### [facility] [address] [address] [address] Mikayla HainesPROF CHEM 8 (BAS METB)on 66-10-6746Kzlyi gap [Moles/Vol]9.2 mmol/LNormalGalion Community HospitalComment on above:Performed By: #### MG, BMP #### [facility] [address] [place] [address] Dr. Mikayla HainesCalcium [Mass/Vol]8.7 mg/dLNormal8.5-10.1The [facility] Comment on above:Performed By: #### MG, BMP #### [facility] [address] [place] [address] Dr. Mikayla HainesChloride [Moles/Vol]102 mmol/EXgbypg44-238Fgm [facility] Comment on above:Performed By: #### MG, BMP #### [facility] [address] [place] [address] Dr. Mikayla HainesCO2 [Moles/Vol]32.4 mmol/LCritically high21.0-32.0The [facility] HospitalComment on above:Performed By: #### MG, BMP #### [facility] [address] [place] [address] Dr. Mikayla HainesCreatinine [Mass/Vol]0.91 mg/dLNormal0.55-1.02The [facility] HospitalComment on above:Performed By: #### MG, BMP #### [facility] [address] [place] [address] Dr. Mikayla DuongGFR-AF SENEGALESE>60Normal>=60The [facility] HospitalComment on above:Performed By: #### MG, BMP #### [facility] [address] [place] [address] Dr. Mikayla DuongGFR-NON AF SENEGALESE>60Normal>=60The [facility] HospitalComment on above:Performed By: #### MG, BMP #### [facility] [address] [place] [address] Dr. Mikayla HainesGlucose [Mass/Vol]232 mg/dLCritically phgf18-391Hwz [facility] HospitalComment on above:Performed By: #### MG, BMP #### [facility] [address] [place] [address] Dr. Mikayla HainesPotassium [Moles/Vol]3.6 mmol/LNormal3.5-5.1The [facility] Comment on above:Performed By: #### MG, BMP #### [facility] [address] [place] [address] Dr. Mikayla HainesSodium [Moles/Vol]140 mmol/GEqojan344-808BzjGalion Community Hospital Comment on above:Performed By: #### MG, BMP #### [facility] [address] [place] [address] Dr. Mikayla Grant nitrogen [Mass/Vol]33.0 mg/dLCritically high7.0-18.0Galion Community HospitalComment on above:Performed By: #### MG, BMP #### [facility] [address], [place] [address] Dr. Mikayla Grant nitrogen/Creatinine [Mass ratio]36.3 mg/mgNoMercy Health Defiance HospitalComment on above:Performed By: #### MG, BMP #### [facility] [id number] Mikayla HainesCardiovasc Arrhythmia Resultson 12-50-8007Hdsptpnijf Arrhythmia ResultsReason For Visit Reason for Visit: Holter Monitor: RAFI is here for the application of a 24 hour Holter monitor. Ordering Physician: Dr. Jason Alex DO Diagnosis: PAF NO equipment agreement signed. RAFI understands monitor is to be returned on: 04/26/2021 Monitor number [id number] applied. Holter monitor returned with diary and [...] There were no symptoms reported. Future Appointments Date/TimeProviderSpecialtySite 10/25/2021 10:00 Jason Rice, QLUfxtewxsfr009 [facility] 2 Jan 250 DO Signatures Electronically signed by : Jason Devlin MD; Apr 28 2021 6:17PM EST (Author) Count includes the [facility] TouchworksOffice Visit (Cardiology)on 85-19-9876Gknurr-up visit Diagnoses/Problems Assessed Arteriosclerotic heart disease (ASHD) [...] Evaluate AND Treat Status: Hold For - Scheduling,Retrospective Authorization Requested for: 19Apr2021 Agreement : I [...] Instructions By signing my name below, IKenyatta LPN ,Jack, attest that this documentation has been prepared under the direction and in the presence of Dr. Jason Alex DO. All medical record entries made by the Scribe were at my direction and personally dictated by me. Isai reviewed the chart and agree that the [...] female who returns following recent non-ST elevation [place], and three-vessel urgent bypass surgery. All this occurred on February 15. Patient had postoperative atrial fibrillation, she is currently in sinus rhythm no longer on amiodarone therapy. She still has significant left lower extremity weakness secondary to vein graft harvesting. She does have symptomatic vertigo with certain forms of exercise (treadmill). She is not performing cardiacrehab as of yet. She has had no [...] MEQ Oral Tablet Exte (more content not included)...NormalUH TouchworksTobacco Screening.on 02-24-5911Lmds risk assessmenta) No falls within the last yearMP-[address] [address] DO Work Phone: Tobacco use status CPHSb) NoMP-[facility] 250 DO Work Phone: Laboratory - Microbiology and Antimicrobial susceptibilityon 35-48-9295JZGO-CoV-2 (COVID-19) RNA MIKIE+probe Ql (Unsp spec)- [address] [address] [place] Work Phone: ALLIED HEALTHon 78-62-2417TCXPDR HEALTHO ID: [id number] Author: RT Lori(R) Service: ? Author Type: Pneumatic Tool Operator Type: Allied Health Filed: 09/01/2020 10:25 AM [...] Roper DATE: September 01, 2020 TIME: 10:10 [facility]/W IVCONon 74-14-4690GTN BRAIN WO/W IVCON* * *Final Report* * * DATE OF EXAM: Sep 01 2020 10:36AM [facility] 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 This information is taken directly from the service order taker system. TECHNIQUE: Routine brain MRI protocol without [...] administration and is associated with prominent bony thickening/hyperostosis of the adjacent calvarium compatible with a [...] veins, and dural venous sinuses are patent. Casting Associate: [facility] Transcribe Date/Time: Sep 01 2020 10:41A Dictated by : MIRLANDE OSCAR MD This examination was interpreted and the report reviewed and electronically signed by: MIRLANDE OSCAR MD on Sep 01 2020 11:01AM EST [id number] Specialty Hospital [id number] (NSCAMN) RAFI ROPER ([id number]) 1955 F Date Time Provider Department 06/02/20 YENNY ONEAL (RN) [facility] During your visit today, we recorded the following information about you: Yenny Oneal RN, RN 06/02/2020 3:35 PM Signed MRI brain w / without contrast reviewed by Dr. Enriquez. Per Dr. Enriquez, repeat MRI in 3 months. Called and spoke w patient who is agreeable w this plan. All questions answered.Yenny Oneal RN, BSN Marzipan Molder pager #[phone]. Allergies As of Date: 06/02/2020 Noted Allergy [...] 05/07/2020 Encounter Status:Closed by YENNY ONEAL on 06/02/20[facility] [id number] HEALTHHNO ID: [id number] Author: Art Reyes) [place] Service: ? Author Type: Pneumatic Tool Operator Type: Allied Health Filed: 05/31/2020 2:58 PM [...] Roper DATE: May 31, 2020 TIME: 2:38 [facility] IV[facility]on [id number] BRAIN WO/W IVCON* * *Final Report* * * DATE OF EXAM: May 31 2020 3:08PM [facility] 0295 - MRI BRAIN WO/W IVCON / [...] mild localized mass effect. Otherwise normal study. Casting Associate: PSCB Transcribe Date/Time: May 31 2020 4:16P Dictated by : JAYLIN PETIT MD This examination was interpreted and the report reviewed and electronically signed by: JAYLIN PETIT MD on May 31 2020 4:26PM EST [id number] Specialty Hospital [id number] (NSCAMN) RAFI ROPER ([id number]) 1955 F Date Time Provider Department 05/03/20 JOHNNA MEYERS (RN) NSCAMN During your visit today, we recorded the following information about you: Johnna Meyers RN, RN 05/03/2020 9:56 AM Signed Call placed to patient in regards to referral to [facility] and to see how I can assist with obtaining additional information. Patient recently had imaging at [facility]. The triage process had been imitated [...] if so, then I'll reach out to [facility] to obtain the disc or see if [place] can electronically send imaging to [facility]. Johnna Meyers RN, RN 05/04/2020 8:31 AM Signed Images are now available in [place]. Additional medical records received from referring providers office and are under scanned documents. Message has been sent to scheduling to coordinate an appointment as soon as possible with the neurosurgeon Allergies As of Date: 05/03/2020 Noted Allergy Reaction LATEX 08/21/2011 2 - Rash Date Reviewed: 06/30/2014 Reviewed by: Skyla (Margarita) MARGARITA Blum - Fully Assessed Reason for Visit: Marzipan Molder - Other [3602] Cmt: referral to [facility] [...] 06/17/2013 Encounter Status:Closed by JOHNNA MEYERS on 05/04/20NoPomerene HospitalMR-MRI BRAIN WO CON IMPORTon 14-15-1267AM-MRI BRAIN WO CON IMPORTImages were obtained outside of [facility] [id number] Health St[facility] Vital Signs Date TimeVital SignValuePerforming TpikpisyuMrkatirl02-74-4556 13:45-0500 Diastolic blood cfucddvi47 mm[Hg]Janes Mandelnus [facility]11-08-2024 13:45-0500Heart rate68 /minMikhail Kirnus [facility]11-08-2024 13:45-0500 Respiratory rate16 /minMikhail Kirnus [facility]11-08-2024 13:45-2992SyL2% (BldA) [Mass fraction]98 %Janes Mandelnus [facility]11-08-2024 13:45-0500 Systolic blood mm[Hg]Janes Mandelnus [facility]11-07-2024 08:54-0500 Diastolic blood pzorxmhm31 mm[Hg]Dixied Alfredli 391-9717Mgxrql-YyqdtKindred Hospital Lima11-07-2024 08:54-0500Mean blood mm[Hg]Flavioamad Mouchli 285-7754Pzetsm-WcfpzKindred Hospital [facility]ima11-07-2024 08:54-0500Systolic blood lbnpimzt907 mm[Hg]Flavioamad Mouchli 081-9831Lebtak-GvkrfKindred Hospital Lima11-07-2024 08:49-0500Blood Pressure LocationMohamad Mouchli 585-1261Jqubpg-NvgwqKindred Hospital [facility]11-07-2024 08:49-0500Diastolic blood zipewiib26 mm[Hg]Flavioamad Mouchli 106-0959Vtaoaf-JydtdKindred Hospital [facility]ima11-07-2024 08:49-0500Heart rate72 /minMohamad Mouchli 821-7326Lqmblm-DbncuKindred Hospital [facility]ima11-07-2024 08:49-0500Respiratory rate16 /minMohamad Mouchli 836-2057Hdzkvy-SqkyiKindred Hospital [facility]ima11-07-2024 08:49-0500Systolic blood qquilhhk312 mm[Hg]Mohamad Mouchli 857-6133Xdggty-BsfkzKindred Hospital [facility]ima10-31-2024 12:30-0400Blood Pressure LocationJENNIFER MALIK [facility]10-31-2024 12:30-0400Body cbwgwrgrtue67.6 [degF]KAYLA MALIK [facility]10-31-2024 12:30-0400Diastolic blood bzipkhwg81 mm[Hg]KAYLA MALIK [facility]10-31-2024 12:30-0400Heart rate72 /minJENNIFER MALIK [facility]10-31-2024 12:30-0400Respiratory rate18 /minJENNIFER MALIK [facility]10-31-2024 12:30-0400Systolic blood xaiycmjd547 mm[Hg]KAYLA MALIK [facility]05-12-2024 14:38-0400Heart rate62 /minAstrit [facility]05-12-2024 14:38-0400Respiratory rate18 /minAstrit [facility]05-12-2024 14:38-4235SuH9% (BldA) [Mass fraction]100 % Astrit [facility] Lqtgmo06-76-7299 14:33-0400Heart rate59 /min[facility]05-12-2024 14:33-0400Respiratory rate18 /minCommunity [facility]05-12-2024 14:33-2873YvC3% (BldA) [Mass fraction]99 %[facility]05-12-2024 14:00-0400Diastolic blood jvxgrujc38 mm[Hg][facility]05-12-2024 14:00-0400Heart rate61 /minCommunity [facility]05-12-2024 14:00-0400Mean blood jiaizjrk498 mm[Hg][facility]05-12-2024 14:00-0400Systolic blood neegrjai388 mm[Hg][facility]05-12-2024 13:19-0400Diastolic blood mm[Hg][facility]05-12-2024 13:19-0400Mean blood oeezlvna294 mm[Hg][facility]05-12-2024 13:19-0400Systolic blood ojswjebb299 mm[Hg][facility]05-12-2024 12:01-0400Body .88 [degF][facility]05-12-2024 12:01-0400Diastolic blood jsvxiayd31 mm[Hg][facility]05-12-2024 12:01-0400Heart rate60 /minCommunity [facility] Medical Center05-12-2024 12:01-0400Systolic blood zwoeeyud351 mm[Hg][facility]11-07-2023 13:37-0500Diastolic blood wyicutop33 mm[Hg]Jason Alex DO Work Phone: [facility]11-07-2023 13:37-0500 Systolic blood ijqlgtji330 mm[Hg]Jason Alex DO Work Phone: [phone]11-07-2023 13:00-0500 Body .1 cmJason Alex DO Work Phone: [phone]11-07-2023 13:00-0500 Body mass index (BMI) [Ratio]23.46 kg/x2JkninroJason Alex DO Work Phone: [phone]11-07-2023 13:00-0500 Body ozfpkr92.96 kgWillhector Alex DO Work Phone: [phone]11-07-2023 13:00-0500 Heart rate76 /minJason Alex DO Work Phone: [facility]11-01-2022 09:58-0400 Body txyhic344.1 cmKiprateek E Butler Work Phone: [phone]) [phone]-Gzkpn [facility] 250 DO Work Phone: [phone] 09:58-0400Body mass index (BMI) [Ratio] 23.67 kg/m2Bryprateek E Butler Work Phone: [phone]) [phone]-Mcfjr [facility] 250 DO Work Phone: [phone] 09:58-0400Body surface area Derived from formula1.71 m2Kiprateek E Butler Work Phone: 1(274) [phone]-Fhhrn [facility] 250 DO Work Phone: 1(306) 831-404011-01-2022 09:58-0400Body sshfan54.52 kgKim E Butler Work Phone: 1(127) [phone]-Galbq [facility] 250 DO Work Phone: 1(954) 667-534711-01-2022 09:58-0400Diastolic blood njutxuvj99 mm[Hg] Lamont Lima Butler Work Phone: [phone]-Bxzzj [facility] 250 DO Work Phone: 1(263) 887-970511-01-2022 09:58-0400Heart rate65 /minKim E Butler Work Phone: 1(693) [phone]-Xdnfk [facility] 250 DO Work Phone: 1(670) 192-251111-01-2022 09:58-0400Systolic blood nopbntqg733 mm[Hg] Lamont Janie HoltButler Work Phone: 1(117) [phone]-Fbuvy [facility] 250 DO Work Phone: 1(454) 903-737402-01-2022 11:50-0500Body .1 cmKim E Butler Work Phone: 1([phone]) [phone]-Rcijp [facility] 250 DO Work Phone: 1(407) [phone] 11:50-0500Body mass index (BMI) [Ratio] 21.47 kg/m2Kiprateek Holtight Work Phone: 1(873) [phone]-Ewbqa [facility] 250 DO Work Phone: 1(058)[phone] 11:50-0500Body surface area Derived from formula1.64 m2Kim E Butler Work Phone: 1(958) [phone]-Dqqrj [facility] 250 DO Work Phone: 1(866) 151-761102-01-2022 11:50-0500Body ynbiba77.51 kgKim E Butler Work Phone: 1(665) [phone]-Trjly [facility] 250 DO Work Phone: 1(982) 427-450902-01-2022 11:50-0500Diastolic blood olgupghk89 mm[Hg] Lamont Janie HoltButler Work Phone: 1(837) [phone]-Qcuje [facility] DO Work Phone: 1(703)[phone] 11:50-0500Heart rate74 /minKim E Butler Work Phone: 1(480) [phone]-Nqujm [facility] 250 DO Work Phone: 1(179)[phone] 11:50-0500Systolic blood joupbpbw159 mm[Hg] Lamont Butler Work Phone: 1(257) [phone]-Teftx [facility] 250 DO Work Phone: Encounters Encounter DateEncounter TypeCare ProviderFacilityStart: 54-44-6734grgaexkqrn Tita Hernández BobbsFacility:FT FM BellevueStart: 01-22-2025 End: 89-57-9327Jsuuls Kj Mccallum MD Work Phone: NOJX [facility] EyeStart: 01-22-2025 End: 73-53-7144Rbiudq Kj Mccallum MD Work Phone: NOEW [facility] EyeStart: 01-12-2025 End: 91-69-1712gktzweqzyyYxor L SchwabFacility:FT FM BellevueStart: 10-08-2024 End: 67-54-8216bwxkxssgibJogmk M. LueFacility:EU BellevueStart: 10-08-2024 End: 14-78-7661Akfjico encounter procedureMaris Scott [facility] Jose Martin start: 09-30-2024 End: 70-72-3554ybgxgtiffgVLY SHELLY A LEHMANNFacility:FT FM BellevueStart: 09-08-2024 End: 59-96-7991bueawategoWFT NEGAR A LEHMANNFacility:FT FM BellevueStart: 08-12-2024 End: 23-49-3473Kwgqxf flowsGarcía Fiore DO Work Phone: noms NB OPHTStart: 08-12-2024 End: 78-96-1640Kwryce Marty Fiore DO Work Phone: noms NB OPHTStart: 08-12-2024 End: 76-39-7421mlaxlkaskcGWBSOGNS D ZAHLERNot AvailableStart: 08-08-2024 End: 36-07-9096Sbh-admission assessmentMaldonado Oro [facility] Start: 07-21-2024 End: 90-22-2657gelfpxnejcFWTYKO MOUKARBELMemorial Health System Start: 07-01-2024 End: 38-30-5027clubumyyaoBudloq E. RossFacility:FT FM BellevueStart: 03-26-2024 ambulatoryCNP NEGAR FILIBERTOFacility:Stephanie DHStart: 03-18-2024 End: 80-40-1556mwzyvsvpiyVwbiu M. LueFacility:FTMCStart: 03-18-2024 End: 65-64-0730Cvtpdmr encounter procedureMaris Scott [facility] Start: 03-17-2024 End: 09-67-3543jlxhaxtxatCokxl M. LueFacility:FTMCStart: 03-17-2024 End: 20-92-0103Ninhbhr encounter Sean Scott [facility] Start: 01-25-2024 End: 75-88-6817agfyoskaobZJRI NONEFacility:FTMCStart: 01-25-2024 End: 63-89-5716Amxurin encounter procedureJanes Rivera [facility] Start: 01-24-2024 End: 17-83-7972xfwgypyqqjBzgnkip A. MouchliFacility:Stephanie DHStart: 01-24-2024 End: 60-72-2867Fstwhui encounter procedureRaman Garcia [phone]-AhxenCincinnati Children'S [facility] Start: 01-17-2024 End: 47-97-2729Vxe Drop offJENNIFER E MALIK [facility] Start: 01-17-2024 End: 45-95-3915awtqubhjkjPLKMCKQJ E PERRYFacility:FTMCStart: 01-17-2024 End: 23-24-2255Fpvbzaz encounter procedureJENNIFER E MALIK [facility] [place] start: 01-17-2024 End: 53-68-1240dxzjphslbzML Samuel E Ross Work Phone: [facility] Work Phone: Start: 01-17-2024 End: 29-43-1960Ynpkkam encounter procedureMD Francisco Mckeon Work Phone: [facility] Work Phone: Start: 01-14-2024 End: 14-00-6370nzujrlwkrwInfrgv E. RossFacility:FTMCStart: 01-14-2024 End: 45-35-4948Tfqckpx encounter procedureSgalo Mckeon [facility] Start: 01-01-2024 End: 23-53-3709Rej Drop offSgalo Mckeon [facility] Start: 01-01-2024 End: 17-14-1454wojpqtybobIbhozm E. RossFacility:FT FM evueStart: 12-04-2023 ambulatorySamagdaleno MckeonFacility:FT FM BellevueStart: 10-03-2023 End: 61-84-7420Ljo Drop offJanes Rivera [facility] Start: 10-03-2023 End: 03-07-1765btkgfffeldFdqncp Nidhi RossFacility:FT FM BellevueStart: 09-10-2023 End: 78-38-8723urxgayivbrTifdkr Nidhi RossFacility:FT FM BellevueStart: 07-29-2023 End: 78-70-4017Yczbyecyj department patient visitAstrit Dylan ArellanoAdena [facility] Start: 07-27-2023 End: 76-85-2322alpcxonzzwZpyj L SchwabFacility:FT FM BellevueStart: 07-16-2023 End: 04-15-0954grfesxgmkcLukgct Nidhi RossFacility:FT BellevueStart: 07-03-2023 ambulatorySamuel RossFacility: ueStart: 07-03-2023 End: 00-95-4181Dgp Drop Kwame Mckeon [facility] Start: 07-03-2023 End: 56-34-4331extfautogvOfxlna Nidhi MckeonFacility:FTMCStart: 04-23-2023 End: 57-42-5407tmjcoarmjjGgsizi Janie. RossFacility:FT FM BellevueStart: 04-03-2023 End: 29-13-6014qbpqbnprhxVmynho Nidhi RossFacility:FT FM BellevueStart: 03-20-2023 End: 43-65-0705xpkbeplfygRHLWOWVAscension Standish Hospital AmbulatoryStart: 03-01-2023 End: 57-22-0348ixxxovfrsiVoji L SchwabFacility:FT FM BellevueStart: 02-13-2023 End: 27-35-5092ifpgdphxduOfdkaa Nidhi RossFacility:FT BellevueStart: 01-23-2023 End: 92-48-3831ndcnbijivvCSPFRAWAscension Standish Hospital AmbulatoryStart: 01-23-2023 End: 34-41-2829Rwkctl outpatient visit 25 minutesJason Alex DO Work Phone: [facility] on above:Arteriosclerotic heart disease (ASHD) (Primary Dx); History of myocardial infarction; Hyperlipidemia, unspecified hyperlipidemia type; Essential hypertension, benign; S/P CABG x 3; Paroxysmal atrial fibrillation (CMS/HCC); Other specified diabetes mellitus with other specified complication, with long- term current use of insulin (CMS/HCC)Start: 01-15-2023 End: 53-64-4241qiymkcpuxpJO Francisco Mckeon Work Phone: [facility] Work Phone: Start: 01-15-2023 End: 91-91-2031Aefzzrm encounter procedure Francisco Mckeon Work Phone: [facility] Work Phone: Start: 05-15-2022 End: 68-87-6427nbsdkxlykvVU KIM E KNIGHT .Facility:E7Jodth: 04-23-2022 End: 77-90-0324oxdqturlxwLM JACK HAY .Facility:X5Mjbce: 31-53-0887Wg RenewalLamont Butler Work Phone: [phone]-Jupbt [facility] DO Work Phone: Start: 85-26-1991Fddjry outpatient visit 15 minutesLamont Butler Work Phone: [phone]-Kzjtm [facility] DO Work Phone: Start: 10-46-7652zdmcunlijqBicManny Butler Facility:08985Zuwoz: 01-13-2022 End: 66-87-3841raipwzrqvcBH Kim E Knight Work Phone: [facility] Work Phone: Start: 01-13-2022 End: 17-46-9904Mxmwpmc encounter procedureMD Lamont uBtler Work Phone: [facility] Start: 01-11-2022 End: 68-40-2932hvgpokqxpmDA KIM E KNIGHT .Facility:B2Ptvug: 12-10-2021 End: 43-77-4034mtogcpzxpgFYSLD PARKERFacility:K3Xuett: 84-53-9764wqirwmfxsnMO KIM E KNIGHT .Facility:M8Xtdro: 11-01-2021 End: 61-24-7804wngrapkoifLC KIM E KNIGHT .Facility:E0Wkdyl: 10-13-2021 End: 46-16-0152cvddqhtrxcBO KIM E KNIGHT .Facility:S0Nkwda: 09-30-2021 End: 97-29-8755qaibtfiddqFK KIM E KNIGHT .Facility:S7Ewvka: 09-30-2021 End: 81-35-2808Tma Drop judyGiansergeyjay White JACKIE [facility] Start: 09-26-2021 End: 59-40-0019tgnrrtbqspRT NATALIE GRECHNY .Facility:Y3Hselm: 08-01-2021 End: 98-49-3005zqwfjdmqxqKU KIM E KNIGHT .Facility:G2Nxvnl: 49-68-3694medrafgxitjohn ButlerFacility:: 68-85-3088Oimqfyk encounter procedureKim E Butler Work Phone: [phone]-Obwis [facility] DO Work Phone: Start: 22-77-8990jaxiiujjwgAcl Edward Knight Facility:: 09-19-2571Kgmlob outpatient visit 25 minutesKim E Butler Work Phone: [phone]-Qxzqc [facility] DO Work Phone: Start: 57-45-1434fkaafrsltoBji Edward Knight Facility:: 40-25-9093Ej Ting Cornell MD Work Phone: [facility] [place] Work Phone: Start: 03-34-6440ibdpacnqruEz. Jason Alex Facility:9090Start: 38-03-9072pnushxvzcrMx. Jason AlexFacility:9090Start: 87-67-9835hvfdthdthtHi. Jason AlexFacility:9090Start: 83-86-2896sjtjjdxxjc Dr. Jason Francoity:9090Start: 15-88-6063yshtkpfmfmUu. Jason Alex Facility:9090Start: 46-65-4831zravrtezkwMr. Jason AlexFacility:9090Start: 06-03-0421qijpzakhwlMi. Jason Carvajalcility:9090Start: 44-82-6039tlfmbhoczr Dr. Jason Carvajalcility:9090Start: 93-04-3344zgbvzrlxmaDw. Jason Alex Facility:9090Start: 66-29-4777Puzyx Ishaan Cornell MD Work Phone: [phone]-YzrgbChristina Ville [address]A [place] Work Phone: Start: 09-97-6394ilypgotlkoTc. Jason Alex Facility:9090Start: 94-18-9159xnzknkziqfIg. Jason Carvajalcility:9090Start: 11-38-2549qsyjxsefaiGg. 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 type 1 diabetes mellitus (CMS/HCC) (Primary Dx); Bilateral posterior capsular opacification; Diplopia; Dry eyesStart: 22-45-1074Pzdkizsub mammography of bilateral breastsMD Francisco Mckeon Work Phone: Start: 09-72-3676IFCJGD UP IN CARDIOLOGYLAUREENHECTOR LEROYCAROLINEStart: 72-69-1607Ekfwhqq of coronary artery bypass graftingS/P CABG x 3 Jason Moralesdon Work Phone: Start: 54-71-5299Soqvlevgo mammography of bilateral breastsMD Francisco Mckeon Work Phone: Start: 56-00-2336Gdffrvhat mammography of bilateral breastsMD Lamont Butler Work Phone: Start: 28-03-9698Tsfh heart surgerySamagdaleno Mckeon Start: 53-53-8283Ytnxuqub extraction and insertion of intraocular lensPatrick JACKIE Comment on above:leftCholecystectomyKiprateek Lima Luke Work Phone: CholecystectomySamagdaleno Mckeon ColonoscopyFrancisco Mckeon Coronary artery bypass graftLamont Janie Butler Work Phone: History of cholecystectomyHistory of cholecystectomy Raman Garcia History of coronary artery bypass graftingS/P CABG x 3 Lamont Janie Butler Work Phone: History of coronary artery bypass graftingStatus post aorto-coronary artery bypass graftMD Lamont Butler Work Phone: History of coronary artery bypass graftingS/P CABG x 3 Jason Aelx DO Work Phone: Ligation of fallopian tubeSgalo Mckeon Operative procedure on spinal structureLamont Butler Work Phone: Tooth extractionSgalo Mckeon Plan of Treatment DateCare ActivityDetailAuthorStart: 14-12-1501YXjN/Tdap/Td Vaccines (2 - Td or Tdap)DTaP/Tdap/Td Vaccines (2 - Td or Tdap)[facility] Start: 08-12-2025 End: 58-61-9832Ogejibi encounter gljwmlyos67/27/2026 8:30 AM EDT Office Visit [facility] [address] [place] [id number] Bita Fiore, [address] [place] [address] [facility] EyeStart: 03-03-2025 COVID-19 Vaccine ( season)COVID-19 Vaccine ( season)NOM HealthcareStart: 01-22-2025 End: 92-31-5605Xyicjev encounter /06/2025 10:15 AM EST Office Visit [facility] [address] [place] [address] Lexi Mccallum MD [address] [place] [address] [facility] EyeComment on above:ArrivedStart: 08-12-2024 End: 02-13-1582Mpfqrjm encounter rmiofonro21/27/2025 8:15 AM EDT [facility] [address] [place] [id number] Bita Fiore, [address] [place] [address] [facility] OPHTComment on above:ArrivedStart: 42-85-5555Ulmqcbhs screeningDiabetes: Retinopathy ScreeningRiverview Health InstituteStart: 76-69-5661BTT, Provider: Jason Alex, Status: Pen, Time: 9:10 AMFUV, Provider: Jason Alex, Status: Pen, Time: 9:10 AMMP-[facility] DO Work Phone: Start: 25-88-8480XMOUC-19 Vaccine (5 - Moderna series) COVID-19 Vaccine (5 - Moderna series)[facility] InstituteStart: 80-01-2513JFI, Provider: Jason Alex, Status: Pen, Time: 10:00 AMFUV, Provider: Jason Alex, Status: Pen, Time: 10:00 AMGil[facility] DO Work Phone: Start: 60-92-4630ZSTIMN MON, Provider: MIRIAM TOMPKINS CENTRAL SUPPLY MANAGER 1,[id number], Status: Pen, Time: 10:00 [facility], Provider: MIRIAM TOMPKINS CENTRAL SUPPLY MANAGER 1,[id number], Status: Pen, Time: 10:00 AMGil[facility] DO Work Phone: Start: 67-54-5673QBR, Provider: Jason Alex, Status: Pen, Time: 11:20 AMFUV, Provider: Jason Alex, Status: Pen, Time: 11:20 [facility] [place] Work Phone: Start: 54-86-6979Bhdweqenbyzl Vaccine: 65+ Years (2 - PCV)Pneumococcal Vaccine: 65+ Years (2 - PCV)[facility] Start: 11-95-4809Fhnfuudttpro Vaccine: 65+ Years (2 of 2 - PCV)Pneumococcal Vaccine: 65+ Years (2 of 2 - PCV)[facility]Start: 20-14-7997Leahwvpne for malignant neoplasm of breastMammogramUnSt. Vincent Hospital: 64-11-7459Muxav screening for proteinDiabetes: Urine Protein ScreeningDoctors Hospital: 89-99-6802Ihvolspxx C screeningHepatitis C ScreeningUnSt. Vincent Hospital: 49-54-7136Cajhfckm foot examinationDiabetes: Foot ExamUnSt. Vincent Hospital: 1955 Hemoglobin A1c measurementDiabetes: Hemoglobin E3DHykopxucctSt. Vincent Hospital: 45-83-5171Vjxib panelLipid PanelDoctors Hospital: 1953Medicare Annual Wellness VisitMedicare Annual Wellness Visit (AWV)[facility]: 84-20-0878Wvlfdmswn for malignant neoplasm of colonDoctors Hospital: 1955 Screening for osteoporosisBone Density [facility] Start: 39-00-0817Cmmlkyj stimulating hormone measurementTSFairfax [facility] Immunizations Immunization DateImmunizationNotesCare OqrzausfSibasgvx74-06-3176ovjpsipoo virus vaccine, unspecified formulationSgalo Mckeon 121-1407Ktvsry-QdoxhSelect [facility]ty [facility] 15-24-9302ffifiqmhh virus vaccine, unspecified formulationSgalo Mckeon 263-9662Zjxubv-OnjsgSelect Medical Specialty Hospital [facility] 49-76-6897Swtsuvjam, Seasonal, Quadrivalent, AdjuvantedWillhector Alex DO Work Phone: [facility] Work Phone: [phone], unspecified formulationJECINTHIA GEORGE [facility]09-06-2023RSV, 60 Years And Older (AREXVY)Jason Alex DO Work Phone: [facility] Work Phone: [phone] High-Dose Quadrivalent 0.7 ML Intramuscular Suspension Prefilled SyringeKiprateek Butler Work Phone: mp-[facility] 250 DO Work Phone: [phone] virus vaccine, unspecified formulationSgalo Mckeon 009-5702Ixsosg-BzkfqSelect Medical Specialty Hospital [facility] 85-78-6084Eypqxwf COVID-19 Bival Booster 50 MCG/0.5ML Intramuscular Suspension Lamont Butler Work Phone: [facility]zffyO[facility] 250 DO Work Phone: Comment on above:Result Comment: 2022-06-29: TPV65 92-95-7806bmobfxnvz virus vaccine, unspecified formulationSamterra Mckeon 430-7963Ejxfuo-ZnvktSelect Medical Specialty Hospital [facility] 68-96-9736mtiqgbeqh, seasonal, injectableKim E Butler Work Phone: [phone]-ScsxiOlmsted Medical Center 250 DO Work Phone: Comment on above:Series:72-30-8288Umqybgg COVID-19 Vaccine 100 MCG/0.5ML Intramuscular SuspensionKim E Butler Work Phone: [phone]-ZpnsjSelect Medical Specialty Hospital [facility] 02-82-7091Ioqdcgv COVID-19 Vaccine 100 MCG/0.5ML Intramuscular SuspensionKim E Butler Work Phone: [phone]-AfyriSelect Medical Specialty Hospital [facility] Comment on above:Result Comment: 2022-06-29: PNQ1588-05-5039Spewpnn High-Dose Quadrivalent 0.7 ML Intramuscular Suspension Prefilled SyringeKim E Butler Work Phone: [phone]-AlthnOlmsted Medical Center 250 DO Work Phone: [phone]) [phone]wqki virus vaccine, unspecified formulationSgalo Mckeon 855-2582Xhcbrs-ZnvonSelect Medical Specialty [facility] 03-59-3081Qfpuegd COVID-19 Vaccine 100 MCG/0.5ML Intramuscular SuspensionKim E Butler Work Phone: [phone]-GlovhSelect Medical Specialty Hospital [facility] 51-66-8863Aodbfir COVID-19 Vaccine 100 MCG/0.5ML Intramuscular SuspensionKim E Butler Work Phone: [phone]-JyvbkSelect Medical Specialty Hospital [facility] 69-12-6307Kyvihhx High-Dose Quadrivalent 0.7 ML Intramuscular Suspension Prefilled SyringeKim E Butler Work Phone: [phone]-XsyfxChristina V[place] [address] [place] Work Phone: [phone]) [phone] virus vaccine, unspecified formulationSgalo Mckeon 362-7636Wjbbrw-PclhzSelect Medical Specialty Hospital [facility] 54-22-1791cafjacrhh virus vaccine, unspecified formulationSamterra Mckeon 170-3019Rpfnoh-JnymoSelect Medical Specialty Hospital [facility] 12-69-6067yjzfzerph, high dose seasonal, preservative-freeKim E Butler Work Phone: [phone]-PbryjChristina V[place] [address] [place] Work Phone: [phone]) [phone]hhtamn polysaccharide vaccine, 23 valentKim E Butler Work Phone: [phone]-RehfrChristina V[place] [address] [place] Work Phone: [phone]) [phone]mgy vaccine recombinantKim E Butler Work Phone: [phone]-SizucChristina Ville [address] DO Work Phone: [phone]) [phone]ttfmxeo polysaccharide vaccine, 23 valentKim E Butler Work Phone: [phone]-OirqgChristina V[place] [address] DO Work Phone: [phone]) [phone]mwajgw virus vaccine, live, attenuated, for intranasal useSamterra Mckeon 294-1673Zwrdqp-HwreoSelect Medical Specialty Hospital - [facility] 27-11-7688mvpmpfdgm, live, intranasal, quadrivalentKim E Butler Work Phone: [phone]-JpimzChristina V[place] [address] DO Work Phone: [phone]) [phone] virus vaccine, unspecified formulationSamterra Mckeon 901-0266Yrsivi-TlwwqSelect Medical Specialty Hospital [facility] 07-41-9106zviifhvqy, injectable, quadrivalent, preservative freeKim E Butler Work Phone: [phone]-AroxrChristina V[place] [address] DO Work Phone: 1(537) [phone]saxa vaccine, parenteral, other than acetone-killed, driedKim E Butler Work Phone: [phone]-EuzudChristina Ville [address] DO Work Phone: [phone]) [phone]zhl vaccine recombinantKim E Butler Work Phone: [phone]-WywshChristina V[place] [address] DO Work Phone: 1(385) [phone]thzt toxoid, reduced diphtheria toxoid, and acellular pertussis vaccine, adsorbedKim E Butler Work Phone: [phone]-IvllcChristina V[place] [address] DO Work Phone: 1(325) [phone]eqclheei virus vaccine, unspecified formulationSgalo Mckeon 151-3350Dwhnfr-GzskvSelect Medical Specialty Hospital [facility] 67-92-3779aakskfuxr, injectable, quadrivalent, preservative freeKim E Butler Work Phone: [phone]-HswrtChristina V[place] [address] DO Work Phone: [phone]) [phone]pzlnfv virus vaccine, unspecified formulationSgalo Mckeon 552-0445Qhwuem-YesyoSelect Medical Specialty Hospital [facility] 16-73-0191xizmarqua, injectable, quadrivalent, preservative freeKim E Butler Work Phone: [phone]-CfhnrChristina Ville [address] DO Work Phone: [phone]) [phone]oiwcqr vaccine, parenteral, other than acetone-killed, driedKim E Butler Work Phone: [phone]-XdcyqChristina [place] [address] DO Work Phone: [phone]polee vaccine, liveKim E Butler Work Phone: [phone]-QaufqChristina Ville [address] DO Work Phone: 1(454) [phone]b ysmabwykz-K2C8-28, preservative-free, injectableKim E Butler Work Phone: [phone]-WvpqnGillette [facility]'s [facility]ty [facility] 250 DO Work Phone: [phone] A, unspecified formulationSamterra Mckeon 143-6340Rdxihu-VruubSelect Medical Specialty Hospital [facility] 32-75-3054askhhtecb A vaccine, unspecified formulationKim E Butler Work Phone: [phone]-ZqklgBuffalo Hospitalusky 250 DO Work Phone: [phone] A, unspecified formulationSamterra Mckeon 121-9848Fnsuut-IfmtvSelect Medical Specialty Hospital [facility] 76-30-3779tnwxiuios A vaccine, unspecified formulationKim E Butler Work Phone: [phone]-KgszqBuffalo Hospitalusky 250 DO Work Phone: Payers DatePayer CategoryPayerPolicy [id number] Health [id number] 2018Medicare [id number] [id number]-yqo [id number]-[id number]-25g6-r69q-[id number] x6o62261-2y02-0q56-x192-0h6q2[id number] 2.840.1.688232.3.579.2.16766-40-1937Wkojcao824890485 2.0.1.639365.3.579.2.40377-25-5495Gnbmgjg248607872 2.16.840.1.603147.3.579.2.82073-97-3573Wmzkwgl664911513 2.16.840.1.558825.3.579.2.60771-86-4295Xcjwzin759926036 2.16.840.1.259635.3.579.2.62548-49-7587Zkykvoc275220200 2.16840.1.653047.3.579.2.78355-50-7659Hreevae930198460 2.840.1.423479.3.579.2.00631-65-0724Ielbgah574844701 2.16840.1.353109.3.579.2.19905-28-9832Froxvog598834989 2.840.1.575318.3.579.2.29044-89-3060Zjvwlbt301186298 2.840.1.073815.3.579.2.22113-52-2813Wseeeqy571710422 2.840.1.020824.3.579.2.31734-24-6935Wrkemqn365552680 2.840.1.561455.3.579.2.51515-35-4064Xnjwqwl611039256 2.840.1.657377.3.579.2.01969-33-1019Vldyrhq768906396 2.840.1.005774.3.579.2.81054-19-9651Dbecffe596081097 2.16840.1.799862.3.579.2.30265-39-0272Nfuayjp290107635 2.16840.1.622146.3.579.2.17554-62-9745Fndxouy577219516 2.16840.1.350705.3.579.2.50301-83-3788Tjqejvn6124588 2.16.840.1.752237.3.579.2.44253-50-5535Ldalecj1675628 2.16.840.1.651300.3.579.2.59571-59-0735Crpogrr8911617 2.16.840.1.458037.3.579.2.10709-26-9441Vmsxjfw2477556 2.16.840.1.779477.3.579.2.56905-95-4836Uqxuryp6187628 2.16.840.1.564788.3.579.2.23274-22-9515Eauybqc8831399 2.16.840.1.561820.3.579.2.36242-02-8073Xvedibv5561511 2.16.840.1.278989.3.579.2.94507-85-4894Cxihght9983249 2.16.840.1.160886.3.579.2.83466-81-3535Eufmucl3147195 2.16.840.1.787363.3.579.2.49839-98-2316Okzfvgo8925070 2.16.840.1.448639.3.579.2.68526-25-1933Zppvaul4276266 2.16.840.1.246820.3.579.2.40876-46-3903Beaeejl10531413 2.16.840.1.414793.3.579.2.402243-35-9975Pmoimkq52185973 2.16.840.1.706765.3.579.2.217501-60-9606Wnifjbx75449132 2.16.840.1.413615.3.579.2.32661-30-1572Tcidsvb56803352 2.16.840.1.078036.3.579.2.57675-08-9520Payojjz24662452 2.16.840.1.285378.3.579.2.08938-53-9174Sniebpw86167617 2.16.840.1.873640.3.579.2.45778-60-6111Esbjqgc20867767 2.16.840.1.537268.3.579.2.57178-43-6592Yyjpqcf07452630 2.16.840.1.873282.3.579.2.84271-47-8453Jidbfag57815954 2.16840.1.675352.3.579.2.65498-24-5481Dyvlzwu96582774 2.16840.1.152714.3.579.2.04384-36-0334Ckgqjbk61361241 2.16840.1.240823.3.579.2.41938-68-0228Ygpygdh03127786 2.16.840.1.820779.3.579.2.55519-52-4981Yfteeky37091355 2.16840.1.092530.3.579.2.62733-56-4059Erffbjz40459568 2.16840.1.355480.3.579.2.60888-23-6014Eukizty96735982 2.16.840.1.916561.3.579.2.20619-29-1096Rkbcbsd87438451 2.16.840.1.983085.3.579.2.20157-04-5318Jlffpdz88681889 2.16840.1.375315.3.579.2.81510-87-1405Oauogim44886884 2.16.840.1.415556.3.579.2.54335-32-9241Cfwmklj98830125 2.16.840.1.144671.3.579.2.35929-15-3401Tiondtj44061872 2.16.840.1.501100.3.579.2.37128-73-5015Xmeixih61330769 2.16.840.1.635594.3.579.2.19874-95-7567Hjzowlg63576275 2.16.840.1.697982.3.579.2.93861-47-7560Ejzdspm84718097 2.16.840.1.661598.3.579.2.18295-77-3803Fcrikjq85660851 2.16.840.1.277269.3.579.2.46025-26-7783Jexhrdl57012941 2.16.840.1.151752.3.579.2.05660-14-3150Rdlsgjz26964454 2.16.840.1.645190.3.579.2.06861-48-7493Chqddte53236089 2.16.840.1.161253.3.579.2.66878-06-4558Grbtzxn20234806 2.16.840.1.814400.3.579.2.54893-22-2417Prrpwwc4674916 2.16.840.1.000868.3.579.2.162720-76-4747Xzitbep65445041 2.16.840.1.287011.3.579.2.70407-03-6276Qchqrej15646446 2.16.840.1.961433.3.579.2.50143-38-0767Phhzlmq08650473 2.16.840.1.555539.3.579.2.90392-84-0747Zwvjmga28306690 2.16.840.1.972435.3.579.2.95861-96-3053Krtxswz21330797 2.16.840.1.926553.3.579.2.08040-31-1267Jjkhdxu88916128 2.16.840.1.483363.3.579.2.97163-95-4336Etgnlww32338930 2.16.840.1.146148.3.579.2.74676-06-9029Swxoepm67919716 2.16.840.1.469860.3.579.2.34211-96-7043Gxhdqdn61591620 2.16.840.1.625341.3.579.2.727Private Health Mhfkawlyl20979909 66971s6l-2udl-1442-v448-8j87378g28d3Rovewya97701023 2.16.840.1.495413.3.579.2.531 Social History DateTypeDetailFacilityStart: 01-23-2023 End: 92-39-5734Nq alcohol useNo alcohol use-[facility] 250 DO Work Phone: Tobacco smoking statusNo Smoking Status EnteredNorwalk Memorial Hospital CenterStart: 01-23-2023 End: 92-06-3075Lls Assigned At BirthWilson Health CenterStart: 02-24-2021 End: 13-76-1371Dgxzabf smoking status NHISNever smoked tobacco (finding) [facility] CenterStart: 26-23-5871Zkx [facility] CenterStart: 12-11-2022 End: 31-31-5423Hbroxbe use and exposureSmokeless tobacco non-userUnUK Healthcare Work Phone: Start: 72-42-3768Uldpnxw intakeLifetime non-drinker (finding)[facility] Work Phone: Start: 79-47-3218Goz Assigned At BirthNot on file [facility] Work Phone: Start: 01-13-2023 End: 93-49-5901Tephrdtw to SARS-CoV-2 (event)Not sureUnUK HealthcareStart: 88-58-6851Agjdarq smoking statusNeMercer County Community Hospital [facility] BellevueSexual [facility] Start: 81-92-6920PmwSdgzrn (finding)[facility] Medical Equipment Procedure CodeEquipment CodeEquipment Original TextEquipment IdentifierDates CATARACT EXTRACTION W/ INTRAOCULAR LENS Zahler DO, Bita 5/6/20 Unknown Eye L FDAStart: 88-12-4018FSICUHRI EXTRACTION W/ INTRAOCULAR LENS Zahler DO, Bita 5/6/20 Unknown Eye LFDAStart: 11-47-9374Csk Instructions, BD ultra fine mini pen needles 31G X 3/16 Use 6 times a day to inject insulin DxE10.8, SupplyStart: 97-44-5740ZFNCXQXH EXTRACTION W/ INTRAOCULAR LENS Zahler DO, Bita 5/6/20 Unknown Eye LFDAStart: 47-89-6418Hxd Instructions, BD ultra fine mini pen needles 31G X 3/16 Use 6 times a day to inject insulin DxE10.8, SupplyStart: 87-79-9700AOEBJSIS EXTRACTION W/ INTRAOCULAR LENS Zahler DO, Bita 5/6/20 Unknown Eye LFDAStart: 80-40-4220Aby Instructions, BD ultra fine mini pen needles 31G X 3/16 Use 6 times a day to inject insulin DxE10.8, SupplyStart: 38-85-1384YYTXSITF EXTRACTION W/ INTRAOCULAR LENS Zahler DO, Bita 5/6/20 Unknown Eye LFDAStart: 34-25-2873Hfm Instructions, BD ultra fine mini pen needles 31G X 3/16 Use 6 times a day to inject insulin DxE10.8, SupplyStart: 37-35-6369Ezb Needle 31G x 6mm, See Instructions, 100 EA, 1, Pen Needle 31G x 6mm. Pt needs 5 boxes of 3 months supply., [id number], Supply, 154, cm, 01/01/24 9:31:00 EDT, Height/Length Dosing, 66.8, kg, 01/01/24 9:31:00 EDT, Weight DosingStart: 32-72-9192KTZBLSXW EXTRACTION W/ INTRAOCULAR LENS Zahler DO, Bita 07/23/19 Unknown Eye LFDAStart: 42-35-4595Spc Instructions, BD ultra fine mini pen needles 31G X 3/16 Use 6 times a day to inject insulin DxE10.8, SupplyStart: 00-25-1331Zdg Needle 31G x 6mm, See Instructions, 100 EA, 1, Pen Needle 31G x 6mm. Pt needs 5 boxes of 3 months supply., [id number], Supply, 154, cm, 01/01/24 9:31:00 EDT, Height/Length Dosing, 66.8, kg, 01/01/24 9:31:00 EDT, Weight DosingStart: 90-48-5193MXRBMHZQ EXTRACTION W/ INTRAOCULAR LENS Zahler DO, Bita 07/23/19 Unknown Eye LFDAStart: 16-29-5329Xac Instructions, BD ultra fine mini pen needles 31G X 3/16 Use 6 times a day to inject insulin DxE10.8, SupplyStart: 05-89-8106Wdd Needle 31G x 6mm, See Instructions, 100 EA, 1, Pen Needle 31G x 6mm. Pt needs 5 boxes of 3 months supply., [id number], Supply, 154, cm, 01/01/24 9:31:00 EDT, Height/Length Dosing, 66.8, kg, 01/01/24 9:31:00 EDT, Weight DosingStart: 89-44-2755OWPGRSNS EXTRACTION W/ INTRAOCULAR LENS Zahler DO, Bita 07/23/19 Unknown Eye LFDAStart: 19-78-4354Jcx Instructions, BD ultra fine mini pen needles 31G X 3/16 Use 6 times a day to inject insulin DxE10.8, SupplyStart: 74-46-1504Yov Needle 31G x 6mm, See Instructions, 100 EA, 1, Pen Needle 31G x 6mm. Pt needs 5 boxes of 3 months supply., [id number], Supply, 154, cm, 01/01/24 9:31:00 EDT, Height/Length Dosing, 66.8, kg, 01/01/24 9:31:00 EDT, Weight DosingStart: 53-93-0035PLFWIBOB EXTRACTION W/ INTRAOCULAR LENS Zahler DO, Bita 07/23/19 Unknown Eye LFDAStart: 43-75-5500Uja Instructions, BD ultra fine mini pen needles 31G X 3/16 Use 6 times a day to inject insulin DxE10.8, SupplyStart: 02-71-3434Stf Needle 31G x 6mm, See Instructions, 100 EA, 1, Pen Needle 31G x 6mm. Pt needs 5 boxes of 3 months supply., [id number], Supply, 154, cm, 01/01/24 9:31:00 EDT, Height/Length Dosing, 66.8, kg, 01/01/24 9:31:00 EDT, Weight DosingStart: 69-31-9896HZYRVIDW EXTRACTION W/ INTRAOCULAR LENS Zahler DO, Bita 07/23/19 Unknown Eye LFDAStart: 41-87-9828Bwp Instructions, BD ultra fine mini pen needles 31G X 3/16 Use 6 times a day to inject insulin DxE10.8, SupplyStart: 90-48-8743Qvl Needle 31G x 6mm, See Instructions, 100 EA, 1, Pen Needle 31G x 6mm. Pt needs 5 boxes of 3 months supply., [id number], Supply, 154, cm, 01/01/24 9:31:00 EDT, Height/Length Dosing, 66.8, kg, 01/01/24 9:31:00 EDT, Weight DosingStart: 60-01-5818SOGYUCHF EXTRACTION W/ INTRAOCULAR LENS Zahler DO, Bita 07/23/19 Unknown Eye LFDAStart: 82-28-0063Xoc Instructions, BD ultra fine mini pen needles 31G X 3/16 Use 6 times a day to inject insulin DxE10.8, SupplyStart: 46-62-8833Sof Needle 31G x 6mm, See Instructions, 100 EA, 1, Pen Needle 31G x 6mm. Pt needs 5 boxes of 3 months supply., [id number], Supply, 154, cm, 01/01/24 9:31:00 EDT, Height/Length Dosing, 66.8, kg, 01/01/24 9:31:00 EDT, Weight DosingStart: 34-16-9895RDJEZRKT EXTRACTION W/ INTRAOCULAR LENS Zahler DO, Bita 07/23/19 Unknown Eye LFDAStart: 42-81-1532Dlx Instructions, BD ultra fine mini pen needles 31G X 3/16 Use 6 times a day to inject insulin DxE10.8, SupplyStart: 08-35-7422Pur Needle 31G x 6mm, See Instructions, 100 EA, 1, Pen Needle 31G x 6mm. Pt needs 5 boxes of 3 months supply., [id number], Supply, 154, cm, 01/01/24 9:31:00 EDT, Height/Length Dosing, 66.8, kg, 01/01/24 9:31:00 EDT, Weight DosingStart: 19-50-6034EFOKPXEB EXTRACTION W/ INTRAOCULAR LENS Zahler DO, Bita 07/23/19 Unknown Eye LFDAStart: 08-59-5417YNMJGWIP EXTRACTION W/ INTRAOCULAR LENS Zahler DO, Bita 07/23/19 Unknown Eye LFDAStart: 04-15-3899Bydz DME Prescription, See Instructions, 5 EA, 3, BD ultra fine mini pen needles 31G X 3/16 Use 6 times a day to inject insulin Dx E10.8 5 boxes or pt needs 180 a month x3 months with 3 refills., [id number], Supply, 154, cm, 07/01/24 8:31:00 EDT, Height/Length Dosing, 63.7, kg, 07/01/24 8:31:00 EDT, Weight DosingStart: 77-72-6796Ejy Needle 31G x 5mm, See Instructions, 100 EA, 1, Pen Needle 31G x 6mm. Pt needs 5 boxes of 3 months supply., [facility], Supply, 154, cm, 01/25/24 13:53:00 EST, Height/Length Dosing, 66.4, kg, 01/25/24 13:53:00 EST, Weight DosingStart: 04-21-2024 Functional Status WvdcHybrsyxazjNklmkpNsixffdw89-46-6289Koyepbtvrf StatusN/[facility]11-08-2024Functional StatusN/[facility]11-07-2024 Functional StatusN/[facility] [id number] Functional StatusN/[facility] Jose Martin [id number] StatusN/[facility] Clinical Notes 05-07-2020 to 01-22-2025 Note Date & DiajTcvjHbjffpzx16-11-0805 History of Present illness Narrative* Lexi Mccallum MD - 01/22/2025 10:15 AM EST Allergies[1] Medical History[2] Assessment/Plan Metallic Corneal foreign body (FB): A corneal foregn body was embedded within the cornea. This was removed after sharing with the patient the procedure and expectations for after the removal. An agar brush was used to clear the fb . Tobradex анна was applied to the eye and they were sent to the waiting room in satisfactory condition. [1] Allergies Allergen Reactions Latex Rash BURNED HER SKIN [2] Past Medical History: Diagnosis Date Cataract Disease of thyroid gland documented in this encounterSaint [facility] WestBususjrxkp74-46-9000 Hospital Discharge instructions Patient Education 10/08/2024 12:18:18 [...] Follow these instructions at home: Medicines Take fjux-vxr-qftmoke and prescription medicines only as told by [...] or the blood stops without treatment. Take ntob-dcq-vrqepyb and prescription medicines only as told by your health care provider. Drink enough fluid to keep your urine pale yellow. This information is not intended to replace advice given to you by your health care provider. Make sure you discuss any questions you have with your health care provider. Document Revised: 11/03/2020 Document Reviewed: 11/03/2020 ValueFirst Messaging Patient Education 2023 [employer]. Follow Up Care 07/01/2024 10:12:14 With:Tyler SHANNON, SHAHBAZ White, URO Address: When: Unknown [facility] [place] 07-23-2025 NotePatient Education Urology Hematuria, Adult Hematuria is [...] these instructions at home: Medicines ??? Take dyzp-fjc-vpxllll and prescription medicines only as told by [...] the blood stops without treatment. ??? Take pxxf-zdg-aqmzvlp and prescription medicines only as told by your health care provider. ??? Drink enough fluid to keep your urine pale yellow. This information is not intended to replace advice given to you by your health care provider. Make sure you discuss any questions you have with your health care provider. Document Revised: 11/03/2020 Document Reviewed: 11/03/2020 [employer] Patient Education ? 2023 [employer].[facility] 09-30-2024 NotePatient Education Endocrinology Diabetes Mellitus and Sick Day Management Make a plan for sick days as part of your plan to manage your diabetes. Being sick can cause stressand loss of body fluids (dehydration). These problems can cause your level of blood sugar (glucose)to rise. Common illnesses that can cause problems [...] glucose is still too high, you may needto take an extra dose of insulin as told by your health care provider. ??? Know your treatment goals for sick days. Your target blood glucose levels may be different whenyou are sick. ??? If you use a [...] the food and drink choices below have about15 g of carbs in them. Plan ahead and keep some of these on hand so you have them if you get sick. ? 4?6 oz (120?177 mL) of a carbonated drink that contains sugar. This includes regular soda. Do notdrink diet soda. Open the drink and let it sit at room temperature for a few minutes. This may makeit easier to drink. ? 4 oz (120 g) regular gelatin dessert. ? 4 oz (120 mL) fruit juice. ? 4 oz (120 g) ice cream or frozen yogurt. ? 2 oz (60 g) sherbet. ? 1 slice bread or toast. ? 6 saltine crackers. ? 5 vanilla wafers. Medicines ??? Take rekm-dpb-slfpuee and prescription medicines only as told by [...] even after you take an extra dose ofinsulin. ??? You vomit every time you drink [...] provider. Document Revised: 08/28/2022 Document Reviewed: 08/28/2022 Elsevier Patient Education ? 2023 [employer].[facility] 09-08-2024 NotePatient Education Infectious Disease Insect Bite, Adult An insect bite can make your skin red, itchy, and swollen. An insect bite is different from an insect sting, which happens when an insect injects poison (venom) into the skin. Some insects can spread disease to people through a bite. However, most insect bites do not lead todisease and are not serious. What are the [...] an anaphylactic reaction may include: ??? Feeling mold machine operator the face (flushed). This may include redness. [...] on their own and treatment is not usuallyneeded. When treatment is recommended, it may include: [...] made of baking soda and water to thebite area as told by your health care [...] to prevent skin damage. The risk of skindamage is higher if you cannot feel pain, heat, or cold. General instructions ??? Apply or take qqro-uub-tbtmvhh and prescription medicine only as told by your health care provider. ??? If you were prescribed antibiotics, take or apply them as told by your health care provider. Donot stop using the antibiotic even if you start to feel better. How is this prevented? To help reduce your risk of insect bites: ??? When you are outdoors, wear clothing that covers your arms and legs. This is especially important in the demolitionist and evening. ??? Use insect repellent. The best insect repellents contain DEET, picaridin, oil of lemon eucalyptus (OLE), or GR2326. ??? Consider spraying your clothing with a [...] emergency. Get help (more content not included)... [facility]05-27-2025 History of Present illness Narrative* Bita Fiore, DO - 08/12/2024 8:15 AM EDT Images from the original note were not included. 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 documented in this encounterSaint Joseph Hospital WestWacqotlxzh25-88-1379 NoteUT Cardiology - [facility] Subjective Rafi Roper is a 69 y.o. year old female patient being [facility]. Patient states she had CABG x 3, 3 years ago at [facility]. 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 69-year-old female with history of chronic microscopic hematuria here for cystoscopy. Found to havea urethral caruncle and vaginal atrophy with symptoms. 1. Urethral caruncle/vaginal atrophy - having dysuria without infection. We discussed presence of vaginal atrophy. I explained the lack of estrogen secondary to menopause causes changes in the vaginal epithelium that can predispose to lower urinary tract symptoms, vaginaldiscomfort, urge urinary incontinence, urgency, frequency, nocturia, dyspareunia, and recurrent urinary tract infections. This can be treated with topical application of estrogen to the vagina, whichhas been shown to reduce frequency of UTIs by up to 70%. She was reassured that there is minimal systemic absorption with application of vaginal estrogen cream and most of the benefits will be to thelocal tissues. -Start estrace cream. Patient was told [...] 4-20 RBCs Cysto years ago by Dr. Vasquez for microscopic hematuria. Negative. CTU - not yet obtained Cysto - neg today -F/u CTU and urine cytology. If neg, f/u prn Future Appointments Appointment Date:03/18/2024 08:00:00 AM Scheduled Provider: Location:.[facility] Appointment Type:CT Abdomen/Pelvis Combo () Appointment Date:07/01/2024 08:30:00 AM Scheduled Provider:Francisco Mckeon MD Location:[facility] Appointment Type: Open Diagnostic Tests Pending * Urine Cytology ([facility]) 03/17/24 Future Scheduled Tests Laboratory* Lipid Panel 07/27/23 Radiology* CT Urogram 03/18/24 [facility] 12-30-2024 Hospital Discharge instructions Patient Education [...] Address:Unknown When: Unknown Comments:Call for any problems. [facility] 12-30-2024 NoteProgress Note-Physician Patient: RAFI ROPER [...] 1 month, then 2x a week afterwards[id number], cm, 01/25/24 13:53:00 EST, Height/Length Dosing, 66.4, kg, 01/25/24 13:53:00 EST, Weight Dosing... Flonase 0.05 mg/inh Henderson: 2 spray(s), Nasal, Daily, 16 gram, Refill(s) 0, each nostril, [id number], 154, cm, 09/10/23 11:04:00 EDT, Height/Length Dosing, 64, kg, 09/10/23 11:04:00 EDT, Weight Dosing Freestyle Lokesh Flash Glucose Monitoring 14 Day System (Sensor): Freestyle Lokesh Flash Glucose Monitoring 14 Day System (Sensor), See Instructions, 6 EA, 11, Freestyle Lokesh 2 Flash Glucose Monitoring 14 Day System (Sensor). Replace sensor every 14 days., [id number], Supply, 154.4, cm, 07/03/23 10:36:00 EDT... Lantus Solostar Pen 100 units/mL subcutaneous solution: See Instructions, INJECT 15 UNITS SUBCUTANEOUSLY IN THE MORNING AND 17 UNITS IN THE EVENING, # 30 Unspecified/Unknown, Refills(s) 1, Pharmacy: [id number], 154, cm, 01/25/24 13:53:00 EST, Height/Length Dosing, 66.4, kg, 01/25/24 13:53:00 EST, Weig... Pen Needle 31G x 6mm: Pen Needle 31G x 6mm, See Instructions, 100 EA, 1, Pen Needle 31G x 6mm. Pt needs 5 boxes of 3 months supply., [id number], Supply, 154, cm, 01/01/24 9:31:00 EDT, Height/Length Dosing, 66.8, kg, 01/01/24 9:31:00 EDT, Weight Dosing Questran 4 g/9 g oral powder: = 1 packet(s), Oral, BID, # 60 EA, Refills(s) 0, [id number], cm, 01/24/24 8:54:00 EST, Height/Length Dosing, 66, kg, 01/24/24 8:54:00 EST, Weight Dosing Zetia 10 mg Tab: 10 mg = 1 tab(s), Oral, Daily, # 90 tab(s), Refills(s) 1, [id number], 154, cm, 09/10/23 11:04:00 EDT, Height/Length Dosing, 64, kg, 09/10/23 11:04:00 EDT, Weight Dosing atorvastatin 80 mg Tab: 80 mg = 1 tab(s), Oral, Daily, # 90 tab(s), Refills(s) 3, [id number], 154, cm, 07/29/23 12:14:00 EDT, Height/Length Dosing, 63.5, kg, 07/29/23 12:14:00 EDT, Weight Dosing fluticasone Nasal 0.05 mg/inh Price: See Instructions, 48 mL, Refill(s) 1, USE 2 SPRAYS IN EACH NOSTRIL ONCE A DAY, [facility] [id number], 154, cm, 09/10/23 11:04:00 EDT, Height/Length Dosing, 64, kg, 09/10/23 11:04:00 EDT, Weight Dosing gabapentin 300 mg Cap: 300 mg = 1 cap(s), Oral, Once a day (at bedtime), # 90 cap(s), Refills(s) 3,[id number], 154, cm, 07/29/23 12:14:00 EDT, Height/Length Dosing, 63.5, kg, 07/29/23 12:14:00 EDT, Weight Dosing hydrochlorothiazide 12.5 mg Cap: 12.5 mg = 1 cap(s), Oral, Daily, # 90 cap(s), Refills(s) 3, [id number], 154, cm, 01/25/24 13:53:00 EST, Height/Length Dosing, 66.4, kg, 01/25/24 13:53:00 EST, Weight Dosing levothyroxine 50 mcg (0.05 mg) Tab: 50 mcg = 1 tab(s), Oral, Daily, # 90 tab(s), Refills(s) 3, [id number], 154.4, cm, 03/01/23 15:22:00 EST, Height/Length Dosing, 62.7, kg, 03/01/2315:22:00 EST, Weight Dosing losartan 50 mg Tab: 50 mg = 1 tab(s), Oral, BID, # 180 tab(s), Refills(s) 1, [id number] 154, cm, 01/01/24 9:31:00 EDT, Height/Length Dosing, 66.8, kg, 01/01/24 9:31:00 EDT, Weight Dosing magnesium oxide 400 mg Tab: See Instructions, TAKE 1 TABLET BY MOUTH EVERY DAY, # 90 tab(s), Refills(s) 3, Pharmacy: [facility] [address], 154, cm, 09/10/23 11:04:00 EDT, Height/Length Dosing, 64, kg, 09/10/23 11:04:00 EDT, Weight Dosing metformin 500 mg ER Tab: 500 mg = 1 tab(s), Oral, Daily, # 90 tab(s), Refills(s) 3, [id number], 154.4, cm, 04/23/23 9:26:00 EST, Height/Length Dosing, 63.5, kg, 04/23/23 9:26:00 EST, Weight Dosing metoprolol 100 mg ER Tab: 100 mg = 1 tab(s), Oral, Daily, # 30 tab(s), Refills(s) 6, [id number] 154, cm, 07/27/23 10:05:00 EDT, Height/Length [...] Plan Assessment and Plan: Diagnosis: Vaginal atrophy (COC47-GJ N95.2, Discharge, Medical), Urethral caruncle (KZP24-YJ N36.2, Discharge, Medical), Microscopic hematuria (WPI63-BL R31.29, Discharge, Medical). 69-year-old female with history of chronic (more content not included)...[facility]Result Comment: Electronically Signed By: Tyler SHANNON, Maris Tony\.br\Date and Time Signed: 03/17/24 10:[id number] Note Patient Education Cystoscopy ??? Voiding after [...] if you have a fever over 100 degrees.[facility] 01-17-2024 Hospital Discharge instructions Patient Education [...] Follow these instructions at home: Medicines Take jnoj-gml-rmzfhbe and prescription medicines only as told by [...] or the blood stops without treatment. Take lywv-vus-pnkinfo and prescription medicines only as told by your health care provider. Drink enough fluid to keep your urine pale yellow. This information is not intended to replace advice given to you by your health care provider. Make sure you discuss any questions you have with your health care provider. Document Revised: 11/03/2020 Document Reviewed: 11/03/2020 ValueFirst Messaging Patient Education 2023 [employer]. Follow Up Care 01/02/2024 10:16:49 With:KAYLA GEORGE PA-C, URL Address: [address] [place] [address]. [place] [address] When: Unknown [facility] 10-31-2024 NotePatient Education Urology Hematuria, Adult [...] these instructions at home: Medicines ??? Take quui-tfy-rboshte and prescription medicines only as told by [...] the blood stops without treatment. ??? Take dkov-kwt-xjqjzug and prescription medicines only as told by your health care provider. ??? Drink enough fluid to keep your urine pale yellow. This information is not intended to replace advice given to you by your health care provider. Make sure you discuss any questions you have with your health care provider. Document Revised: 11/03/2020 Document Reviewed: 11/03/2020 [employer]First Messaging Patient Education ? 2023 [employer].[facility] 10-03-2023 NoteNurse Consultation Note Reason for [...] 1 tab(s), Oral, Once Flonase 0.05 mg/inh Henderson, 2 spray(s), Nasal, Daily fluticasone Nasal 0.05 mg/inh Price, See Instructions Freestyle Lokesh Flash Glucose Monitoring [...] virus vaccine, inactivated 12/20/2021 Recorded SARS-CoV-2 (COVID-19) mRNAMUL.ORD![id number] 11/28/2021 Recorded 2022-06-29: TPV65 influenza virus vaccine, [...] 12/07/2000 Recorded Hep A, unspecified formulation 05/30/2000 [facility] NoteNurse Consultation Note Reason for [...] 1 tab(s), Oral, Once Flonase 0.05 mg/inh Henderson, 2 spray(s), Nasal, Daily fluticasone Nasal 0.05 mg/inh Price, See Instructions Freestyle Lokesh Flash Glucose Monitoring [...] virus vaccine, inactivated 12/20/2021 Recorded SARS-CoV-2 (COVID-19) mRNAMUL.ORD![id number] 11/28/2021 Recorded 2022-06-29: TPV65 influenza virus vaccine, [...] 12/07/2000 Recorded Hep A, unspecified formulation 05/30/2000 [facility] Hospital Discharge instructions Patient Education [...] follow-up visits. This is important. Medicines Take ecwx-sxc-agzbyrn and prescription medicines only as told by [...] provider. Document Revised: 01/10/2022 Document Reviewed: 01/10/2022 [employer]First Messaging Patient Education 2022 [employer]. Follow Up Care 07/29/2023 11:49:41 With:Janes Rivera Address: [address] [place] [phone]- [phone] Business (1) When:08/01/2023 14:03:01 Comments:Make sure to take your blood pressure twice a day as instructed and when you have symptoms and follow-up with Dr. Rivera. Return to the emergency room if you develop chest pain, dizziness, headache or any new symptoms. With:Francisco Mckeon Address:Unknown When:Within 3 Day(s) [facility]05-12-2024 Evaluation + Plan noteExtracted from: Title:ED NoteAuthor:Alise Robin M.D. HDate:07/29/23 1. Hypertension (I10: Essent ial (primary) hypertension) Orders: Basic Metabolic Panel CBC w/ Auto Diff eGFR Extra Blue Tube Extra SST Tube Hepatic Function Panel Saline Lock Insert Troponin 0 Hr. Troponin 1 Hr. Troponin 3 Hr. Troponin 6 Hr. Future Appointments Appointment Date:01/01/2024 09:15:00 AM Scheduled Provider:Francisco Mckeon MD Location:[facility] Appointment Type: Open Appointment Date:01/25/2024 01:45:00 PM Scheduled Provider:Janes Rivera MD Location[facility] [place] Appointment Type:Cardiology Follow Up (FT) Future Scheduled Tests Laboratory* Lipid Panel 07/27/23 [facility]11-07-2023 History of Present illness Narrative* Jason Alex, DO - 01/23/2023 1:10 PM EST Subjective Rafi Roper is a 67 y.o. female Chief Complaint Follow-up 67-year-old female returns for annual follow-up she is doing very well she has had no cardiovascular events or symptoms, nitrate usage or hospitalizations over the past 1 year. She sustained FL with failed PCI of the circumflex in [...] use of insulin (CMS/HCC) [facility] Work Phone: 1(431) 174-398011-07-2023 Instructions* Patient Instructions* Anastasiia Berg LPN - [...] time of your visit. documented in this encounterRiver[facility] Institute Work Phone: 1(234) 137-580006-23-2021 NoteHNO ID: [id number] Author: Lela Enriquez MD Service: ? Author Type: Physician Type: Progress Notes Filed: 09/30/2020 3:09 PM Note Text: [facility] Virtual Follow-Up Visit We had a virtual visit conducted via [employer]. I received consent from the patient to [...] PAST SURGICAL HISTORY OF 2004 right elbow Family History: No family history [...] DATE OF EXAM: Sep 01 2020 10:36AM [facility] 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 This information is taken directly from the service order taker system. TECHNIQUE: Routine brain MRI protocol without and with contrast including diffusion and gradient echo images. MQ: MRBWOW_2 Contrast: 13 mL Dotarem IV COMPARISON: None. RESULT: Acute Change: There is no evidence of an acute intracranial process. Hemorrhage: No evidence of prior parenchymal hemorrhage on SWI. Mass Lesion/ Mass Effect: There is a stabl (more content not included)... [facility]02-19-2021 NoteHNO ID: [id number] Author: Lela Enriquez Service: ? Author Type: Physician Type: Progress Notes Filed: 05/07/2020 10:37 AM Note Text: [facility] OUTPATIENT CONSULTATION [facility] CONSULTATION [...] PAST SURGICAL HISTORY OF 2003 right elbow Social History Tobacco Use - [...] more sinister/rapidly growing intra (more content not included)...[facility] Future Appointments Appointment Date:11/02/2021 08:15:00 AM Scheduled Provider:Maris Scott MD Location:[facility] Appointment Type:URO New Patient Diagnostic Tests Pending * Calculi Analysis Urinary 09/30/21 [facility] Future Appointments Appointment Date:01/01/2024 09:15:00 AM Scheduled Provider:Francisco Mckeon MD Location:[facility] Appointment Type: Open [facility] Future Appointments Appointment Date:01/01/2024 09:15:00 AM Scheduled Provider:Francisco Mckeon MD Location:[facility] Appointment Type: Open Appointment Date:01/25/2024 01:45:00 PM Scheduled Provider:Janes iRvera MD [facility] Type:Cardiology Follow Up (FT) Future Scheduled Tests Laboratory* Lipid Panel 07/27/23 [facility] + Plan note Future Appointments Appointment Date:01/25/2024 01:45:00 PM Scheduled Provider:Janes Rivera MD [facility] Appointment Type:Cardiology Follow Up (FT) Appointment Date:07/01/2024 08:30:00 AM Scheduled Provider:Francisco Mckeon MD Location:[facility] Appointment Type:FM Open Diagnostic Tests Pending * Urine Culture 01/01/24 Future Scheduled Tests Laboratory* Lipid Panel 07/27/23 Radiology* US PVR Lower EXT Complete Bilat 01/01/24 [facility] evaluation + Plan note Future Appointments Appointment Date:01/17/2024 12:40:00 PM Scheduled Provider:KAYLA GEORGE PA-C Location:[facility] Appointment Type:URO Complex Office Visit Appointment Date:01/24/2024 08:45:00 AM Scheduled Provider:Raman Garcia MD [facility] Appointment Type:[facility] New Patient Appointment Date:01/25/2024 01:45:00 PM Scheduled Provider:Janes Rivera MD Location:[facility] Appointment Type:Cardiology Follow Up (FT) Appointment Date:07/01/2024 08:30:00 AM Scheduled Provider:Francisco Mckeon MD Location:[facility] Appointment Type:FM Open Future Scheduled Tests Laboratory* Lipid Panel 07/27/23 [facility] Evaluation + Plan note Future Appointments Appointment Date:01/24/2024 08:45:00 AM Scheduled Provider:Raman Garcia MD [facility] App[facility] Type:[facility] New Patient Appointment Date:01/25/2024 01:45:00 PM Scheduled Provider:Janes Rivera MD [facility] Appointment Type:Cardiology Follow Up (FT) Appointment Date:07/01/2024 08:30:00 AM Scheduled Provider:Francisco Mckeon MD Location:[facility] Appointment Type:FM Open Future Scheduled Tests Laboratory* Lipid Panel 07/27/[address] [facility] evaluation + Plan note Future Appointments Appointment Date:01/24/2024 08:45:00 AM Scheduled Provider:Raman Garcia MD Location:[facility] Appointment Type:[facility] New Patient Appointment Date:01/25/2024 01:45:00 PM Scheduled Provider:Janes Rivera MD [facility] [facility] [place] Appointment Type:Cardiology Follow Up (FT) Appointment Date:07/01/2024 08:30:00 AM Scheduled Provider:Francisco Mckoen MD Location:[facility] Appointment Type:FM Open Diagnostic Tests Pending * Urine Culture 01/17/24 Future Scheduled Tests Laboratory* Lipid Panel 07/27/23 [facility] evaluation + Plan note Future Appointments Appointment Date:01/25/2024 01:45:00 PM Scheduled Provider:Janes Rivera [facility] Type:Cardiology Follow Up (FT) Appointment Date:03/12/2024 11:00:00 AM Scheduled Provider: Location:[facility] Appointment Type:Urology CALL PAT FT Appointment Date:03/17/2024 09:15:00 AM Scheduled Provider: Location:[facility] Appointment Type:Urology FT Appointment Date:07/01/2024 08:30:00 AM Scheduled Provider:Francisco Mckeon MD Location:[facility] Appointment Type:FM Open Future Scheduled Tests Laboratory* Lipid Panel 07/27/23 [facility] evalurtcrf + Plan note Future Appointments Appointment Date:03/12/2024 11:00:00 AM Scheduled Provider: Location:[facility] Appointment Type:Urology CALL PAT FT Appointment Date:03/17/2024 09:15:00 AM Scheduled Provider: Location:[facility] Appointment Type:Urology FT Appointment Date:07/01/2024 08:30:00 AM Scheduled Provider:Francisco Mckeon MD Location:[facility] Appointment Type:FM Open Future Scheduled Tests Laboratory* Lipid Panel 07/27/23 [facility] evaluation + Plan note Future Appointments Appointment Date:07/01/2024 08:30:00 AM Scheduled Provider:Francisco Mckeon MD Location:[facility] Appointment Type: Open Future Scheduled Tests Laboratory* Lipid Panel 07/27/23 [facility] Evaluation + Plan note Future Appointments Appointment Date:09/30/2024 08:40:00 AM Scheduled Provider:Francisco Mckeon MD Location:[facility] Appointment Type:FM Open Appointment Date:10/08/2024 10:45:00 AM Scheduled Provider:Maris Scott MD Location:[facility] Appointment Type:URO Office Visit [facility] Evaluation noteNo assessment information available [facility] Work Phone: Evaluation note* Diagnosis Arteriosclerotic heart disease (ASHD)- Primary Coronary atherosclerosis of unspecified type of vessel, cowlitz or graft History of myocardial infarction Hyperlipidemia, unspecified hyperlipidemia type Essential hypertension, benign S/P CABG x 3 Postsurgical aortocoronary bypass status Paroxysmal atrial fibrillation ([facility]/HCC) Atrial fibrillation Other specified diabetes mellitus with other specified complication, with long- term current use of insulin ([facility]) documented in this encounter [facility] Work Phone: Evaluation note* Diagnosis 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 type 1 diabetes mellitus (CMS/HCC)- Primary Bilateral posterior capsular opacification Unspecified after-cataract Diplopia Dry eyes Unspecified tear film insufficiency [facility] Diagnosis Foreign body of right cornea, initial encounter- Primary [facility] Narrative No data available for this section [facility] No data available for this section [facility] No data available for this section [facility]Reason for [facility] (narrative)* Consultation (Routine) - AuthorizedSpecialtyDiagnoses / ProceduresReferred By Contact Referred To ContactCardiology Diagnoses Arteriosclerotic heart disease (ASHD) Procedures Follow Up In Cardiology Jason Alex DO [address] [facility] [address] [place] [address] Jason Alex DO [address] [facility] [address], [facility] [address] [place] [address] Referral IDStatusRegiovanySthank DateExpiration DateVisits RequestedVisits [id number] [facility] Work Phone: Summary Purpose Family History [...] Onset Recorded Date/T alexandr father Pneumonia Unknown DeceasedUnknownfamily memberDeceasedUnknownmotherParkinson's diseaseUnknown Advance Directives Advance Directive Response Recorded Date/ Time Advance Directives No December 19, 2016 9:25am Chief Complaint * RAFI ROPER is being seen for follow-up of a hospitalization for CABG. * Patient is a 66-year-old female who returns following recent non-ST elevation [place], and three-vessel urgent bypass surgery. All this [...] DATE CREATED AUTHOR AUTHOR'S ORGANIZ ATION 04/15/[address] [facility] DATE CREATED AUTHOR AUTHOR'S ORGANIZ ATION 01/18/2022 [facility] DATE CREATED AUTHOR AUTHOR'S ORGANIZ ATION 01/18/2022 [facility] DATE CREATED AUTHOR AUTHOR'S ORGANIZ ATION 05/20/2022 [facility] DATE CREATED AUTHOR AUTHOR'S ORGANIZ ATION 03/21/2023 [facility] DATE CREATED AUTHOR AUTHOR'S ORGANIZ ATION 01/05/2024 [facility] DATE CREATED AUTHOR AUTHOR'S ORGANIZ ATION 01/19/2024 [facility] DATE CREATED AUTHOR AUTHOR'S ORGANIZ ATION 01/21/2024 [facility] DATE CREATED AUTHOR AUTHOR'S ORGANIZ ATION 01/21/2024 [facility] DATE CREATED AUTHOR AUTHOR'S ORGANIZ ATION 01/29/2024 [facility] DATE CREATED AUTHOR AUTHOR'S ORGANIZ ATION 03/19/2024 [facility] DATE CREATED AUTHOR AUTHOR'S ORGANIZ ATION 03/27/2024 [facility] DATE CREATED AUTHOR AUTHOR'S ORGANIZ ATION 07/02/2024 [facility] DATE CREATED AUTHOR AUTHOR'S ORGANIZ ATION 08/15/2024 [facility] DATE CREATED AUTHOR AUTHOR'S ORGANIZ ATION 10/04/2024 [facility] DATE CREATED AUTHOR AUTHOR'S ORGANIZ ATION 10/09/2024 [facility] DATE CREATED AUTHOR AUTHOR'S ORGANIZ ATION 10/25/2024 [facility] DATE CREATED AUTHOR AUTHOR'S ORGANIZ ATION 01/13/2025 [facility] DATE CREATED AUTHOR AUTHOR'S ORGANIZ ATION 01/22/2025 [facility] Reason for Visit (unrecogniz ed section and content) ReasonCommentsFollow-[id number] Eye ExamReasonCommentsEye Pain Care Team (unrecognized sect ion and content) Team Status: Inactive Member Role Status Dates Lamont Butler MD Primary Care Provider, Referring Pro vider Active Referral SelfAttending ProviderActive Team Status: Active Member Role Status Dates Lamont Butler MD Primary Care Provider Active Team Status: Active Member Role Status Dates Francisco Mckeon MD Primary Care Provider Active Team Status: Inactive Member Role Status Dates Referral Self Attending Provider Active [facility] Care ProviderActiveTeam MemberRelationshipSpecialty Start DateEnd Date Francisco Mckeon MD [address] [place] [address] [place] [address] PCP - GeneralFamily Cdfuyspt41/7/23 Team Status: Inactive Member Role Status Dates Francisco Mckeon MD Primary Care Provider Active Start: January 17, 2024 End: January 16eferral SelfAttending ProviderActiveStart: January 17, 2024 End: January 17, 2024Team MemberRelationshipSpecialtyStart DateEnd Date Francisco Mckeon MD PCP - GeneralFamily Medicine12/11/22Team MemberRelationshipSpecialtyStart DateEnd Date Francisco Mckeon MD PCP - GeneralFamily Medicine12/11/22Team MemberRelationshipSpecialtyStart DateEnd Date Francisco Mckeon MD [address] [place] [address] [facility] - [facility]12/11/22Team MemberRelationshipSpecialtyStart DateEnd Date Francisco Mckeon MD [address] [place] [address] PCP - [facility]12/11/22 Goals (unrecognized section and content) Goals may [...] BE BASED ON THE PRIMARY CLINICAL RECORDS. [facility]. provides no warranty or guarantee of the accuracy or completeness of information in this document.
--- NOTE | 2025-01-23 08:19 | MM_ITS ---
Patient Name: RAFI ASH MR#: [id number] : 1955 Exam Date: 01/23/2025 Ordering Doctor: DWAYNE BALDERAS . RADIOLOGY REPORT PROCEDURE: MM TOMOSYNTHESIS SCREENING BI COMPARISON: MM TOMOSYNTHESIS SCREENING BI, 01/17/2024. MG MAMM LEVAR SCRN W CAD DIG, 12/22/2014. MG MAMM LEVAR SCRN W CAD DIG, 01/30/2013. MG MAMM LEVAR SCRN W CAD DIG, 11/13/2011. INDICATIONS: Screening Calculator Name NCI Breast Cancer Risk Assessment Tool 5 Year Breast Cancer Risk 2.50% Lifetime Breast Cancer Risk 6.90% Personal Breast Cancer No Personal Ovarian Cancer No Treatments None Family Cancers Brother with lung cancer at age 56. LOCATION: [facility] BREAST COMPOSITION: There are scattered areas of fibroglandular density. FINDINGS: DIAGNOSTIC CATEGORY 1--NEGATIVE. RIGHT BREAST: No significant suspicious finding. LEFT BREAST: No significant suspicious finding. RECOMMENDATIONS: ROUTINE MAMMOGRAM AND CLINICAL EVALUATION IN 12 MONTHS. Dictated by: Juan Lauren MD on 01/23/2025 at 11:09 Approved by: Juan Lauren MD on 01/23/2025 at 11:12
== END 2025-01-23 08:14 | disposition home or self-care (01) ==
LOC: MAMMO 08:13
PROVIDERS: PCP Nurse Practitioner; Visit Provider Nurse Practitioner
DX: Z12.31 Encounter for screening mammogram for malignant neoplasm of breast (principal); Z80.1 Family history of malignant neoplasm of trachea, bronchus and lung
CPT/HCPCS: 77063; 77067